=== PATIENT | male | born 1965 | race Caucasian/White ===

== ENCOUNTER → 2019-09-05 | Emergency (ER) | payer MEDICAID, MEDICARE, OTHER ==
[~2019-09-05] VITALS: Ht 167.6 cm; Wt 79.4 kg
[~2019-09-05] MED LIST: IPRIH; MORPHINE SULFATE 4 MG/ML SYR/VIAL IV ONE; ONDANSETRON HCL 4 MG/2 ML VIAL IV ONE; PANTOPRAZOLE 40 MG/10 ML VIAL INJ IV STA; SODIUM CHLORIDE 0.9% 1,000 ML IVB ONE
[2019-09-05 11:06] LABS: Eosinophils # (auto) 0.2 10 ^3/uL (0-0.8); Monocytes # (auto) 0.7 10 ^3/uL (0-1.3)
[2019-09-05 11:07] LABS: Basophils # (auto) 0 10 ^3/uL (0-0.2); Basophils % (auto) 0.2 % (0.0-2.0); Eosinophils % (auto) 2.6 % (0.0-7.0); Hematocrit 28.6 % (41.0-53.0); Hemoglobin 9.3 g/dL (13.5-17.5); Lymphocytes # (auto) 1.5 10 ^3/uL (0.4-5.4); Mean Corpuscular Hemoglobin 28.2 pg (28.0-32.0); Mean Corpuscular Hgb Conc. 32.3 g/dL (32.0-36.0); Mean Corpuscular Volume 87.4 fL (80.0-100.0); Monocytes % (auto) 7.8 % (0.0-12.0); Neutrophils # (auto) 6.9 10 ^3/uL (1.6-8.6); Neutrophils % (auto) 73.4 % (37.0-80.0); Platelet Count (auto) 576 10^3/uL (140-450); Red Blood Cells 3.27 10^6/uL (4.5-5.90); Red Cell Distribution Width 14.7 % (11.8-14.3); White Blood Cell 9.4 10^3/uL (4.4-10.8)
[2019-09-05 11:21] LABS: Albumin 3.6 g/dL (3.4-5.0); Calcium 9.3 mg/dL (8.5-10.1); Potassium 3.3 mmol/L (3.5-5.1)
[2019-09-05 11:24] LABS: Bilirubin, Total 0.2 mg/dL (0.2-1.0); Total Protein 7.5 g/dL (6.4-8.2)
[2019-09-05 13:33] LABS: Urine Amorphous Crystal MANY /hpf (None Seen); Urine Bacteria FEW /hpf (None Seen); Urine Blood Negative /uL (Negative); Urine Specific Gravity 1.008 (1.001-1.035); Urine WBC 2 /hpf (0 - 3)
[2019-09-05 14:44] VITALS: BP 116/73
== END | disposition home or self-care (01) ==
LOC: ER 10:22
DX: N20.0 Calculus of kidney (principal); R42 Dizziness and giddiness; R53.1 Weakness; J45.909 Unspecified asthma, uncomplicated; I10 Essential (primary) hypertension; F17.210 Nicotine dependence, cigarettes, uncomplicated; Z79.899 Other long term (current) drug therapy
CPT/HCPCS: 36415; 74176; 76705; 80053; 81001; 83690; 85025; 96361; 96374; 96375; 99285; C9113; J2270; J2405; J7030

== ENCOUNTER 2020-07-20 14:22 | Inpatient (IN) | payer OTHER ==
[~2020-07-20] VITALS: Ht 167.6 cm; Wt 64.3 kg
[~2020-07-20 14:22] MED LIST changes: -MORPHINE SULFATE 4 MG/ML SYR/VIAL IV ONE; -ONDANSETRON HCL 4 MG/2 ML VIAL IV ONE; -PANTOPRAZOLE 40 MG/10 ML VIAL INJ IV STA; -SODIUM CHLORIDE 0.9% 1,000 ML IVB ONE
[2020-07-20] MEDS ORDERED: SODIUM CHLORIDE 0.9% 1,000 ML IVB ONE (14:45)
[2020-07-20] MEDS ORDERED: KETOROLAC TROMETH 30 MG/ML 1ML VIAL IV ONE (15:30)
[2020-07-20] MEDS ORDERED: ONDANSETRON HCL 4 MG/2 ML VIAL IV ONE (15:30)
[2020-07-20 15:46] LABS: Basophils # (auto) 0.1 10 ^3/uL (0-0.2); Basophils % (auto) 0.7 % (0.0-2.0); Eosinophils # (auto) 0.1 10 ^3/uL (0-0.8); Eosinophils % (auto) 1.5 % (0.0-7.0); Hematocrit 40.2 % (41.0-53.0); Hemoglobin 13.5 g/dL (13.5-17.5); Lymphocytes # (auto) 1.9 10 ^3/uL (0.4-5.4); Mean Corpuscular Hemoglobin 28.7 pg (28.0-32.0); Mean Corpuscular Hgb Conc. 33.5 g/dL (32.0-36.0); Mean Corpuscular Volume 85.5 fL (80.0-100.0); Monocytes # (auto) 0.7 10 ^3/uL (0-1.3); Monocytes % (auto) 7.7 % (0.0-12.0); Neutrophils # (auto) 6.8 10 ^3/uL (1.6-8.6); Neutrophils % (auto) 70.1 % (37.0-80.0); Nucleated Red Blood Cells % 0.1 %; Red Cell Distribution Width 15.3 % (11.8-14.3); White Blood Cell 9.6 10^3/uL (4.4-10.8)
[2020-07-20 16:00] LABS: Albumin 3.9 g/dL (3.4-5.0); Calcium 8.6 mg/dL (8.5-10.1); Potassium 3.6 mmol/L (3.5-5.1)
[2020-07-20 16:03] LABS: BUN/Creatinine Ratio 9.3; Bilirubin, Total 0.5 mg/dL (0.2-1.0); Total Protein 7.2 g/dL (6.4-8.2)
[2020-07-20 16:05] LABS: INR 0.94 (0.9-1.15); Partial Thromboplastin Time 28.4 sec (23.0-31.2)
[2020-07-20 16:30] LABS: Urine Bacteria FEW /hpf (None Seen); Urine Blood Negative /uL (Negative); Urine Specific Gravity 1.005 (1.001-1.035); Urine WBC 1 /hpf (0 - 3)
[2020-07-20] MEDS ORDERED: SODIUM CHLORIDE 0.9% 1,000 ML IV ONE (18:00)
[2020-07-20] MEDS ORDERED: PROMETHAZINE HCL 25 MG/ML 1ML IV ONE (18:00)
[2020-07-20] MEDS ORDERED: MORPHINE SULFATE INJECTION 2 MG/ML SYRG IV ONE (18:00)
[2020-07-20] MEDS ORDERED: ACETAMINOPHEN 500 MG TAB PO PRN (19:15)
[2020-07-20] MEDS ORDERED: IPRATROPIUM BROM 0.5 MG/2.5ML INH SOL NEB PRN (19:15)
[2020-07-20] MEDS ORDERED: ONDANSETRON HCL 4 MG/2 ML VIAL IV PRN ×2 (19:15)
[2020-07-20] MEDS ORDERED: ALBUTEROL SULF 2.5 MG/0.5ML(0.5%) NEB SOLN NEB PRN (19:15)
[2020-07-20 19:43] LABS: Alcohol, Urine < 3.0 mg/dL (0-10); Amphetamine Screen, Urine NEGATIVE (NEGATIVE); Barbiturate Scree,Urine NEGATIVE (NEGATIVE); Benzodiazephine Screen, Urine NEGATIVE (NEGATIVE); Cannabinoid Screen, Urine NEGATIVE (NEGATIVE); Cocaine Screen, Urine NEGATIVE (NEGATIVE); Opiate Scree,Urine NEGATIVE (NEGATIVE); Phencyclidine Screen, Urine NEGATIVE (NEGATIVE)
[2020-07-20 20:34] VITALS: BP 128/89
[2020-07-20] MEDS ORDERED: MORPHINE SULFATE 4 MG/ML SYR/VIAL IV ONE (21:30)
[2020-07-20] MEDS ORDERED: LABETALOL HCL 5 MG/ML 4ML SYRINGE IV ONE (21:30)
[2020-07-20] MEDS: DOCUSATE SOD 100 MG CAP PO SCH (22:00)
[2020-07-21 00:58] VITALS: BP 130/81
[2020-07-21] MEDS: KETOROLAC TROMETH 30 MG/ML 1ML VIAL IV PRN ×3 (04:17→18:55)
[2020-07-21 05:00] VITALS: BP 124/84
[2020-07-21 09:00] VITALS: BP 129/88
[2020-07-21] MEDS: PANTOPRAZOLE 40 MG TAB PO SCH (10:41)
[2020-07-21] MEDS: LACTULOSE 20Gm/30ML SOLN PO SCH (10:41)
[2020-07-21] MEDS: DOCUSATE SOD 100 MG CAP PO SCH ×2 (10:41→21:41)
[2020-07-21 13:00] VITALS: BP 136/81
[2020-07-21 17:19] VITALS: BP 120/79
[2020-07-21 22:00] VITALS: BP 120/89
[2020-07-22 05:00] VITALS: BP 105/65
[2020-07-22 05:40] LABS: Basophils # (auto) 0.3 10 ^3/uL (0-0.2); Basophils % (auto) 3.2 % (0.0-2.0); Eosinophils # (auto) 0.3 10 ^3/uL (0-0.8); Eosinophils % (auto) 3.6 % (0.0-7.0); Hematocrit 38.8 % (41.0-53.0); Hemoglobin 12.8 g/dL (13.5-17.5); Lymphocytes % (auto) 25.5 % (10.0-50.0); Mean Corpuscular Hemoglobin 28.3 pg (28.0-32.0); Mean Corpuscular Hgb Conc. 32.9 g/dL (32.0-36.0); Mean Corpuscular Volume 86.1 fL (80.0-100.0); Monocytes # (auto) 0.6 10 ^3/uL (0-1.3); Monocytes % (auto) 7.1 % (0.0-12.0); Neutrophils # (auto) 4.9 10 ^3/uL (1.6-8.6); Neutrophils % (auto) 60.6 % (37.0-80.0); Nucleated Red Blood Cells % 0.1 %; Red Blood Cells 4.51 10^6/uL (4.5-5.90); Red Cell Distribution Width 15.1 % (11.8-14.3)
[2020-07-22 05:49] LABS: BUN/Creatinine Ratio 9.3; Calcium 8.4 mg/dL (8.5-10.1); Potassium 3.9 mmol/L (3.5-5.1)
[2020-07-22 08:58] VITALS: BP 121/67
[2020-07-22] MEDS: PANTOPRAZOLE 40 MG TAB PO SCH (09:41)
[2020-07-22] MEDS: DOCUSATE SOD 100 MG CAP PO SCH (09:42)
[2020-07-22] MEDS: LACTULOSE 20Gm/30ML SOLN PO SCH (09:42)
[2020-07-22] MEDS ORDERED: CIPROFLOXACIN HYDROCHLORIDE 250 MG TAB PO SCH (10:00)
[2020-07-22 12:54] VITALS: BP 116/78
== END 2020-07-22 15:40 | disposition home or self-care (01) | DRG 690 ==
LOC: EDBD 14:22 → ER 14:22 → OVERFLOW 14:23 → CENTRAL 23:44
PROVIDERS: ADMIT Nurse Practitioner Acute Care; ATTEND Internal Medicine
DX: N10 Acute pyelonephritis (principal); I10 Essential (primary) hypertension; N20.0 Calculus of kidney; J44.9 Chronic obstructive pulmonary disease, unspecified; G89.29 Other chronic pain; K40.90 Unilateral inguinal hernia, without obstruction or gangrene, not specified as recurrent; F17.210 Nicotine dependence, cigarettes, uncomplicated; Z20.822 Contact with and (suspected) exposure to COVID-19; Z80.9 Family history of malignant neoplasm, unspecified; Z87.442 Personal history of urinary calculi; Z76.5 Malingerer [conscious simulation]; Z91.14 Patient's other noncompliance with medication regimen; Z90.49 Acquired absence of other specified parts of digestive tract
CPT/HCPCS: 36415; 71045; 74176; 76705; 76775; 80048; 80053; 80307; 81001; 83690; 83735; 84443; 85025; 85610; 85730; 87426; 93005; 96361; 96374; 96375; G0378; J1885; J2405

== ENCOUNTER 2022-04-27 10:04 | Emergency (ER) | payer OTHER, MEDICAID ==
[~2022-04-27] VITALS: Ht 167.6 cm; Wt 77.2 kg
[2022-04-27] MEDS ORDERED: methylPREDNISolone SOD SUCC 125 MG/2 ML VL IV ONE ×2 (10:07→10:15)
[2022-04-27] MEDS ORDERED: methylPREDNISolone SOD SUCC 125 MG/2 ML VL ONE (10:09)
[2022-04-27] MEDS ORDERED: ALBUTEROL SULF 2.5 MG/0.5ML(0.5%) NEB SOLN ONE (10:12)
[2022-04-27] MEDS ORDERED: MAGNESIUM SULFATE 1GM/100ML 100 ML IV ONE (11:00)
[2022-04-27] MEDS ORDERED: ALBUTEROL SULF 2.5 MG/0.5ML(0.5%) NEB SOLN NEB ONE (11:00)
[2022-04-27 11:42] LABS: Basophils # (auto) 0.1 10 ^3/uL (0-0.2); Basophils % (auto) 0.8 % (0.0-2.0); Eosinophils # (auto) 0.1 10 ^3/uL (0-0.8); Eosinophils % (auto) 1.7 % (0.0-7.0); Hematocrit 45.6 % (41.0-53.0); Hemoglobin 14.5 g/dL (13.5-17.5); Lymphocytes # (auto) 1.8 10 ^3/uL (0.4-5.4); Lymphocytes % (auto) 21.9 % (10.0-50.0); Mean Corpuscular Hgb Conc. 31.7 g/dL (32.0-36.0); Mean Corpuscular Volume 88.6 fL (80.0-100.0); Monocytes # (auto) 0.6 10 ^3/uL (0-1.3); Monocytes % (auto) 6.9 % (0.0-12.0); Neutrophils # (auto) 5.7 10 ^3/uL (1.6-8.6); Neutrophils % (auto) 68.7 % (37.0-80.0); Nucleated Red Blood Cells % 0.1 %; Red Blood Cells 5.15 10^6/uL (4.5-5.90); Red Cell Distribution Width 15.1 % (11.8-14.3); White Blood Cell 8.4 10^3/uL (4.4-10.8)
[2022-04-27 12:25] LABS: Albumin 4.4 g/dL (3.4-5.0); BUN/Creatinine Ratio 14.5; Bilirubin, Total 0.5 mg/dL (0.2-1.0); Calcium 9.2 mg/dL (8.5-10.1); Potassium 4.2 mmol/L (3.5-5.1); Total Protein 7.1 g/dL (6.4-8.2)
[2022-04-27 13:19] VITALS: BP 124/81
[2022-04-27 15:00] VITALS: BP 142/80
== END 2022-04-27 17:51 | disposition left against medical advice (07) ==
LOC: ER 10:04 → EDBD 10:04 → ER 17:51
DX: J44.1 Chronic obstructive pulmonary disease with (acute) exacerbation (principal); R06.03 Acute respiratory distress; F17.210 Nicotine dependence, cigarettes, uncomplicated; I10 Essential (primary) hypertension
CPT/HCPCS: 36415; 36600; 71045; 80053; 82805; 83880; 84484; 85025; 85379; 94640; 94660; 96365; 96372; 99291; J2930; J3475

== ENCOUNTER 2022-12-20 09:44 | Inpatient (IN) | payer OTHER, MEDICAID ==
[~2022-12-20] VITALS: Ht 167.6 cm; Wt 65.6 kg
[2022-12-20] MEDS ORDERED: ALBUTEROL SULF 2.5 MG/0.5ML(0.5%) NEB SOLN ONE (09:51)
[2022-12-20] MEDS ORDERED: ALBUTEROL SULF 2.5 MG/0.5ML(0.5%) NEB SOLN NEB ONE ×2 (10:00→13:30)
[2022-12-20 10:19] VITALS: PULSE 103; RESP 19; O2SAT 99
[2022-12-20 10:43] LABS: Albumin 4.3 g/dL (3.4-5.0); Calcium 8.8 mg/dL (8.5-10.1)
[2022-12-20 10:45] LABS: Basophils # (auto) 0.1 10 ^3/uL (0-0.2); Basophils % (auto) 1.2 % (0.0-2.0); Eosinophils # (auto) 0.2 10 ^3/uL (0-0.8); Hematocrit 43.7 % (41.0-53.0); Hemoglobin 14.4 g/dL (13.5-17.5); Lymphocytes # (auto) 2.9 10 ^3/uL (0.4-5.4); Lymphocytes % (auto) 34.4 % (10.0-50.0); Mean Corpuscular Volume 87.9 fL (80.0-100.0); Monocytes # (auto) 0.8 10 ^3/uL (0-1.3); Neutrophils # (auto) 4.4 10 ^3/uL (1.6-8.6); Neutrophils % (auto) 52.4 % (37.0-80.0); Nucleated Red Blood Cells % 0.1 %; Red Blood Cells 4.98 10^6/uL (4.5-5.90); Red Cell Distribution Width 13.3 % (11.8-14.3); White Blood Cell 8.4 10^3/uL (4.4-10.8)
[2022-12-20 10:47] LABS: BUN/Creatinine Ratio 10.2 (10.0-20.0); Bilirubin, Total 0.4 mg/dL (0.2-1.0)
[2022-12-20 11:08] LABS: INR 0.97 (0.9-1.15); Partial Thromboplastin Time 29.6 SEC (24.5-34.5)
[2022-12-20] MEDS ORDERED: IPRATROPIUM BROM 0.5 MG/2.5ML INH SOL NEB ONE (13:30)
[2022-12-20] MEDS ORDERED: DexAMETHasone SOD PHOS 10MG/1ML VIAL INJ IV ONE (13:30)
[2022-12-20] MEDS ORDERED: ONDANSETRON HCL 4 MG/2 ML VIAL IV PRN (14:45)
[2022-12-20] MEDS ORDERED: ACETAMINOPHEN 325 MG TAB PO PRN (14:45)
[2022-12-20] MEDS ORDERED: DOCUSATE SOD 100 MG CAP PO PRN (14:45)
[2022-12-20] MEDS ORDERED: HYDROmorphone HCL 2 MG/ML VL/or syr IV PRN (14:45)
[2022-12-20] MEDS ORDERED: HYDROcodone-ACET 5/325MG TAB PO PRN (14:45)
[2022-12-20] MEDS: NICOTINE 21MG/24 HR TOPICAL PATCH TD SCH (15:09)
[2022-12-20] MEDS: ALBUTEROL SULF 2.5 MG/0.5ML(0.5%) NEB SOLN NEB SCH ×2 (18:23→22:37)
[2022-12-20] MEDS: IPRATROPIUM BROM 0.5 MG/2.5ML INH SOL NEB SCH ×2 (18:24→22:36)
[2022-12-20 18:26] VITALS: BP 120/79; PULSE 97; O2SAT 91
[2022-12-20 19:30] VITALS: PULSE 98; RESP 20; O2SAT 91
[2022-12-20] MEDS ORDERED: DexAMETHasone 4 MG TAB PO SCH (20:00)
[2022-12-20] MEDS ORDERED: levoFLOXacin 500MG 100 ML IV SCH (20:00)
[2022-12-20] MEDS: ENOXAPARIN SOD 40 MG/0.4 ML SYRINGE SC SCH ×2 (20:37→20:42)
[2022-12-20 20:42] VITALS: BP 118/76; PULSE 112; RESP 18; TEMP 97.6; O2SAT 91
[2022-12-20] MEDS: SODIUM CHLOR 0.9% PF (SALINE LOCK) 10ML VIAL/SYR IV SCH (21:40)
[2022-12-20] MEDS: methylPREDNISolone SOD SUCC 40 MG/ML VL IV SCH (21:42)
[2022-12-20 22:32] VITALS: PULSE 100; RESP 17; O2SAT 94
[2022-12-20 22:40] VITALS: PULSE 102; RESP 20; O2SAT 98
[2022-12-21] VITALS (19 sets, daily range): BP systolic 107–136; BP diastolic 75–81; PULSE 85–114; RESP 15–22; TEMP 97.8–98.6; O2SAT 86–100
[2022-12-21] MEDS: IPRATROPIUM BROM 0.5 MG/2.5ML INH SOL NEB SCH ×8 (02:00→21:58)
[2022-12-21] MEDS: ALBUTEROL SULF 2.5 MG/0.5ML(0.5%) NEB SOLN NEB SCH ×8 (02:00→21:58)
[2022-12-21] MEDS: SODIUM CHLOR 0.9% PF (SALINE LOCK) 10ML VIAL/SYR IV SCH ×3 (05:36→20:59)
[2022-12-21] MEDS: methylPREDNISolone SOD SUCC 40 MG/ML VL IV SCH ×3 (05:56→20:59)
[2022-12-21] MEDS: ENOXAPARIN SOD 40 MG/0.4 ML SYRINGE SC SCH (09:50)
[2022-12-21] MEDS: NICOTINE 21MG/24 HR TOPICAL PATCH TD SCH (09:50)
[2022-12-21] MEDS ORDERED: ENOXAPARIN SOD 40 MG/0.4 ML SYRINGE SC SCH (10:00)
[2022-12-21] MEDS ORDERED: ALBU108A5 INH (11:16)
[2022-12-21] MEDS ORDERED: HYDR12.59 PO (11:16)
[2022-12-21] MEDS ORDERED: BUDE1AER4 INH (11:16)
[2022-12-21] MEDS ORDERED: OXY5T PO (11:16)
[2022-12-21] MEDS ORDERED: ALBU0.084 NEB (11:39)
[2022-12-21] MEDS ORDERED: cefTRIAXone 1GM/50ML D5W 50 ML IV ONE (13:00)
[2022-12-21] MEDS ORDERED: AZITHROMYCIN 500MG/ 250ML 250 ML IV ONE (13:00)
[2022-12-21] MEDS: ACETYLCYSTEINE 20%(200MG/ML) SOL 4ML NEB SCH ×2 (13:45→22:00)
[2022-12-21 21:42] LABS: Urine Bacteria NONE SEEN /hpf (None Seen); Urine Blood Negative /uL (Negative); Urine Hyaline Cast FEW /lpf (0 - 2); Urine Mucus FEW (None Seen); Urine Specific Gravity 1.015 (1.001-1.035); Urine WBC <1 /hpf (0 - 3)
[2022-12-22] VITALS (19 sets, daily range): BP systolic 110–137; BP diastolic 64–85; PULSE 73–109; RESP 16–26; TEMP 97.7–98.2; O2SAT 90–99
[2022-12-22] MEDS: ALBUTEROL SULF 2.5 MG/0.5ML(0.5%) NEB SOLN NEB SCH ×7 (02:00→22:06)
[2022-12-22] MEDS: IPRATROPIUM BROM 0.5 MG/2.5ML INH SOL NEB SCH ×7 (02:00→22:06)
[2022-12-22] MEDS: methylPREDNISolone SOD SUCC 40 MG/ML VL IV SCH (05:11)
[2022-12-22] MEDS: SODIUM CHLOR 0.9% PF (SALINE LOCK) 10ML VIAL/SYR IV SCH ×3 (05:11→21:12)
[2022-12-22] MEDS: LORazepam 0.5 MG TAB PO PRN ×2 (05:17→21:48)
[2022-12-22] MEDS: ACETYLCYSTEINE 20%(200MG/ML) SOL 4ML NEB SCH ×2 (06:00→14:00)
[2022-12-22 06:13] LABS: Potassium 4.4 mmol/L (3.5-5.1)
[2022-12-22 06:22] LABS: Albumin 4.1 g/dL (3.4-5.0); BUN/Creatinine Ratio 22.5 (10.0-20.0); Bilirubin, Total 0.4 mg/dL (0.2-1.0); Calcium 8.9 mg/dL (8.5-10.1); Total Protein 7.4 g/dL (6.4-8.2)
[2022-12-22] MEDS: ENOXAPARIN SOD 40 MG/0.4 ML SYRINGE SC SCH (09:32)
[2022-12-22] MEDS: cefTRIAXone 1GM/50ML D5W 50 ML IV SCH (09:32)
[2022-12-22] MEDS: NICOTINE 21MG/24 HR TOPICAL PATCH TD SCH (09:32)
[2022-12-22] MEDS ORDERED: AZITHROMYCIN 500MG/ 250ML 250 ML IV SCH (10:00)
[2022-12-22] MEDS ORDERED: methylPREDNISolone SOD SUCC 40 MG/ML VL IV SCH (22:00)
[2022-12-23] VITALS (15 sets, daily range): BP systolic 112–133; BP diastolic 81–86; PULSE 62–107; RESP 16–22; TEMP 97.6–98.1; O2SAT 6–99
[2022-12-23] MEDS ORDERED: TEMAZEPAM 15 MG CAP PO ONE (01:00)
[2022-12-23] MEDS: IPRATROPIUM BROM 0.5 MG/2.5ML INH SOL NEB SCH ×5 (01:53→19:43)
[2022-12-23] MEDS: ALBUTEROL SULF 2.5 MG/0.5ML(0.5%) NEB SOLN NEB SCH ×5 (01:53→19:43)
[2022-12-23 05:38] LABS: Basophils # (auto) 0 10 ^3/uL (0-0.2); Basophils % (auto) 0.1 % (0.0-2.0); Eosinophils # (auto) 0 10 ^3/uL (0-0.8); Hematocrit 40.1 % (41.0-53.0); Hemoglobin 13.2 g/dL (13.5-17.5); Lymphocytes # (auto) 0.7 10 ^3/uL (0.4-5.4); Lymphocytes % (auto) 6.8 % (10.0-50.0); Mean Corpuscular Hemoglobin 28.6 pg (28.0-32.0); Mean Corpuscular Volume 86.8 fL (80.0-100.0); Monocytes # (auto) 0.3 10 ^3/uL (0-1.3); Monocytes % (auto) 3.1 % (0.0-12.0); Neutrophils # (auto) 9.4 10 ^3/uL (1.6-8.6); Red Blood Cells 4.62 10^6/uL (4.5-5.90); Red Cell Distribution Width 13.7 % (11.8-14.3); White Blood Cell 10.5 10^3/uL (4.4-10.8)
[2022-12-23 06:12] LABS: BUN/Creatinine Ratio 40.5 (10.0-20.0); Calcium 8.8 mg/dL (8.5-10.1); Potassium 4.2 mmol/L (3.5-5.1)
[2022-12-23] MEDS: predniSONE 20 MG TAB PO SCH (09:40)
[2022-12-23] MEDS: PANTOPRAZOLE 40 MG TAB PO SCH (09:40)
[2022-12-23] MEDS: cefTRIAXone 1GM/50ML D5W 50 ML IV SCH (09:40)
[2022-12-23] MEDS: AZITHROMYCIN 250 MG TAB PO SCH (09:41)
[2022-12-23] MEDS: NICOTINE 21MG/24 HR TOPICAL PATCH TD SCH (10:00)
[2022-12-23] MEDS: SODIUM CHLOR 0.9% PF (SALINE LOCK) 10ML VIAL/SYR IV SCH ×2 (14:00→23:23)
[2022-12-24] VITALS (9 sets, daily range): BP systolic 120–140; BP diastolic 80–95; PULSE 80–94; RESP 16–22; TEMP 97.5–98.3; O2SAT 92–98
[2022-12-24] MEDS: ALBUTEROL SULF 2.5 MG/0.5ML(0.5%) NEB SOLN NEB SCH ×5 (00:12→13:24)
[2022-12-24] MEDS: IPRATROPIUM BROM 0.5 MG/2.5ML INH SOL NEB SCH ×5 (00:12→13:24)
[2022-12-24] MEDS: SODIUM CHLOR 0.9% PF (SALINE LOCK) 10ML VIAL/SYR IV SCH ×2 (05:39→14:00)
[2022-12-24] MEDS: cefTRIAXone 1GM/50ML D5W 50 ML IV SCH (09:00)
[2022-12-24] MEDS: AZITHROMYCIN 250 MG TAB PO SCH (09:50)
[2022-12-24] MEDS: NICOTINE 21MG/24 HR TOPICAL PATCH TD SCH (09:51)
[2022-12-24] MEDS ORDERED: AZIT-43 PO (09:54)
[2022-12-24] MEDS ORDERED: PRED20TA2 PO (09:54)
[2022-12-24] MEDS: PANTOPRAZOLE 40 MG TAB PO SCH (13:44)
[2022-12-24] MEDS: predniSONE 20 MG TAB PO SCH (13:44)
== END 2022-12-24 18:00 | disposition home health service (06) | DRG 189 ==
LOC: ER 09:44 → EDBD 09:44 → TELE 14:37 → TELE-CENTR 12-21 10:51 → CENTRAL 12-22 20:30
PROVIDERS: ADMIT Internal Medicine; ATTEND Student in an Organized Health Care Education/Training Program
PROC: 5A09357 Assistance with Respiratory Ventilation, Less than 24 Consecutive Hours, Continuous Positive Airway Pressure (ICD-10-PCS; principal; 2022-12-20)
DX: J96.00 Acute respiratory failure, unspecified whether with hypoxia or hypercapnia (principal); J18.9 Pneumonia, unspecified organism; J43.9 Emphysema, unspecified; F17.210 Nicotine dependence, cigarettes, uncomplicated; N20.0 Calculus of kidney; I10 Essential (primary) hypertension; E86.0 Dehydration; Z90.49 Acquired absence of other specified parts of digestive tract; Z99.81 Dependence on supplemental oxygen; Z91.148 Patient's other noncompliance with medication regimen for other reason; Z80.9 Family history of malignant neoplasm, unspecified
CPT/HCPCS: 36415; 36600; 71045; 80048; 80053; 81001; 82805; 83880; 84484; 85025; 85379; 85610; 85730; 93306; 94640; 94644; 94660; 96365; 96375; 97110; 97116; 97163; 97530; 99291; G0378; J0696; J1100; J1956

== ENCOUNTER 2023-05-19 23:48 | Inpatient (IN) | payer OTHER, MEDICAID ==
[~2023-05-19] VITALS: Ht 170.2 cm; Wt 69.9 kg
[~2023-05-19 23:48] MED LIST changes: +ALBU0.084 NEB; +ALBU108A5 INH; +AZIT-43 PO; +BUDE1AER4 INH; +HYDR12.59 PO; +OXY5T PO; +PRED20TA2 PO
[2023-05-19 23:50] VITALS: PULSE 94; RESP 28; O2SAT 100
[2023-05-20] VITALS (19 sets, daily range): BP systolic 105–141; BP diastolic 63–88; PULSE 69–116; RESP 15–26; TEMP 96–97.9; O2SAT 91–100
[2023-05-20 00:24] LABS: Base Excess -1.5 mmol/L (-2.0-2.0)
[2023-05-20 01:01] LABS: Basophils # (auto) 0.1 10 ^3/uL (0-0.2); Basophils % (auto) 1.5 % (0.0-2.0); Eosinophils # (auto) 0.4 10 ^3/uL (0-0.8); Eosinophils % (auto) 5.9 % (0.0-7.0); Hematocrit 42.2 % (41.0-53.0); Hemoglobin 13.6 g/dL (13.5-17.5); Lymphocytes # (auto) 2.7 10 ^3/uL (0.4-5.4); Lymphocytes % (auto) 41.6 % (10.0-50.0); Mean Corpuscular Hemoglobin 28.5 pg (28.0-32.0); Mean Corpuscular Hgb Conc. 32.2 g/dL (32.0-36.0); Mean Corpuscular Volume 88.3 fL (80.0-100.0); Monocytes # (auto) 0.7 10 ^3/uL (0-1.3); Monocytes % (auto) 10.6 % (0.0-12.0); Neutrophils # (auto) 2.6 10 ^3/uL (1.6-8.6); Neutrophils % (auto) 40.4 % (37.0-80.0); Red Blood Cells 4.77 10^6/uL (4.5-5.90); White Blood Cell 6.5 10^3/uL (4.4-10.8)
[2023-05-20 01:07] LABS: Alanine Aminotransferase 11 U/L (7-40); Albumin 4.6 g/dL (3.2-4.8); Alkaline Phosphatase 45 U/L (46-116); Anion Gap 5 (5-15); Aspartate Aminotransferase 15 U/L (13-40); BUN/Creatinine Ratio 7.9 (10.0-20.0); Blood Urea Nitrogen 8 mg/dL (9-23); Calcium 8.9 mg/dL (8.7-10.4); Carbon Dioxide 27 mmol/L (20-30); Chloride 113 mmol/L (98-107); Glucose 89 mg/dL (74-106); Magnesium 1.8 mg/dL (1.6-2.6); Potassium 3.8 mmol/L (3.5-5.1); Sodium 145 mmol/L (136-145)
[2023-05-20 01:08] LABS: Bilirubin, Total 0.4 mg/dL (0.2-1.0); Total Protein 6.8 g/dL (5.7-8.2)
[2023-05-20 01:14] LABS: INR 0.96 (0.9-1.15); Prothrombin Time 10.1 sec (9.3-11.8)
[2023-05-20] MEDS ORDERED: AZITHROMYCIN 500MG/ 250ML 250 ML IV ONE (01:15)
[2023-05-20] MEDS ORDERED: cefTRIAXone 1GM/50ML D5W 50 ML IV ONE ×2 (01:15→02:48)
[2023-05-20] MEDS ORDERED: DexAMETHasone SOD PHOS 10MG/1ML VIAL INJ IV ONE (01:15)
[2023-05-20] MEDS ORDERED: ALBUTEROL SULF 2.5 MG/0.5ML(0.5%) NEB SOLN NEB ONE (01:15)
[2023-05-20] MEDS: MAGNESIUM SULFATE 1GM/100ML 100 ML IV SCH ×2 (02:50→05:18)
[2023-05-20 03:46] LABS: COVID19 ANTIGEN SOFIA FIA NEGATIVE (NEGATIVE); Rapid Influenza A Negative (Negative); Rapid Influenza B Negative (Negative)
[2023-05-20] MEDS ORDERED: MAGNESIUM SULFATE 1GM/100ML 100 ML IV ONE (05:16)
[2023-05-20] MEDS ORDERED: MORPHINE SULFATE INJ 2 MG/ml SYRG IV PRN (07:15)
[2023-05-20] MEDS ORDERED: ONDANSETRON HCL 4 MG/2 ML VIAL IV PRN (07:15)
[2023-05-20] MEDS ORDERED: NITROGLYCERIN 0.4 MG SL TAB SL PRN (07:15)
[2023-05-20] MEDS: BUDESONIDE (INHALATION) 0.5 MG/2 ML NEB NEB SCH ×2 (08:33→18:17)
[2023-05-20] MEDS: IPRATROPIUM BROM 0.5 MG/2.5ML INH SOL NEB PRN ×3 (08:33→22:02)
[2023-05-20] MEDS: ALBUTEROL SULF 2.5 MG/0.5ML(0.5%) NEB SOLN NEB PRN ×3 (08:33→22:02)
[2023-05-20] MEDS ORDERED: BUDESONIDE (INHALATION) 0.5 MG/2 ML NEB ONE ×2 (08:54→18:03)
[2023-05-20] MEDS ORDERED: IPRATROPIUM BROM 0.5 MG/2.5ML INH SOL ONE ×3 (08:54→21:40)
[2023-05-20] MEDS ORDERED: methylPREDNISolone SOD SUCC 125 MG/2 ML VL IV SCH (10:00)
[2023-05-20] MEDS ORDERED: methylPREDNISolone SOD SUCC 125 MG/2 ML VL ONE (10:34)
[2023-05-20] MEDS ORDERED: NICOTINE 14 MG/24HR TOPICAL PATCH TD ONE (10:43)
[2023-05-20] MEDS: NICOTINE 14 MG/24HR TOPICAL PATCH TD SCH (10:43)
[2023-05-20] MEDS ORDERED: ACETAMINOPHEN 325 MG TAB PO ONE ×2 (11:14→18:17)
[2023-05-20] MEDS: ACETAMINOPHEN 325 MG TAB PO PRN ×2 (11:17→18:23)
[2023-05-20 11:40] LABS: Urine Bacteria NONE SEEN /hpf (None Seen); Urine Blood Negative /uL (Negative); Urine Clarity Clear (Clear); Urine Color Yellow (Yellow); Urine Mucus FEW (None Seen); Urine Protein, UAD Negative (Negative); Urine Specific Gravity 1.017 (1.001-1.035); Urine Urobilinogen Normal (Negative); Urine WBC <1 /hpf (0 - 3)
[2023-05-20] MEDS ORDERED: IOHEXOL 350 MG/ML 100ML IJ ONE (11:53)
[2023-05-20 14:20] LABS: Hepatitis B Surface Antigen Negative (Negative)
[2023-05-20 14:41] LABS: Hepatitis C Antibody Negative (Negative)
[2023-05-20 15:20] LABS: Base Excess -0.6 mmol/L (-2.0-2.0)
[2023-05-20] MEDS ORDERED: ALBUTEROL SULF 2.5 MG/0.5ML(0.5%) NEB SOLN ONE ×2 (16:34→21:40)
[2023-05-20] MEDS ORDERED: LISINOPRIL 5 MG TAB PO ONE (20:30)
[2023-05-20] MEDS: methylPREDNISolone SOD SUCC 125 MG/2 ML VL IV SCH (22:00)
[2023-05-21] VITALS (19 sets, daily range): BP systolic 110–131; BP diastolic 69–78; PULSE 80–116; RESP 18–20; TEMP 97.5–98.6; O2SAT 92–99
[2023-05-21] MEDS ORDERED: IPRATROPIUM BROM 0.5 MG/2.5ML INH SOL ONE (02:09)
[2023-05-21] MEDS ORDERED: ALBUTEROL SULF 2.5 MG/0.5ML(0.5%) NEB SOLN ONE (02:09)
[2023-05-21] MEDS: IPRATROPIUM BROM 0.5 MG/2.5ML INH SOL NEB PRN ×3 (02:12→09:56)
[2023-05-21] MEDS: ALBUTEROL SULF 2.5 MG/0.5ML(0.5%) NEB SOLN NEB PRN ×3 (02:12→09:56)
[2023-05-21] MEDS: BUDESONIDE (INHALATION) 0.5 MG/2 ML NEB NEB SCH (06:03)
[2023-05-21 06:24] LABS: Basophils # (auto) 0 10 ^3/uL (0-0.2); Basophils % (auto) 0.2 % (0.0-2.0); Eosinophils # (auto) 0 10 ^3/uL (0-0.8); Hematocrit 41.6 % (41.0-53.0); Hemoglobin 13.1 g/dL (13.5-17.5); Lymphocytes # (auto) 0.9 10 ^3/uL (0.4-5.4); Mean Corpuscular Hemoglobin 28.7 pg (28.0-32.0); Mean Corpuscular Hgb Conc. 31.5 g/dL (32.0-36.0); Mean Corpuscular Volume 91.1 fL (80.0-100.0); Monocytes # (auto) 0.5 10 ^3/uL (0-1.3); Neutrophils # (auto) 7.9 10 ^3/uL (1.6-8.6); Neutrophils % (auto) 84.8 % (37.0-80.0); Red Blood Cells 4.56 10^6/uL (4.5-5.90); Red Cell Distribution Width 14.2 % (11.8-14.3); White Blood Cell 9.3 10^3/uL (4.4-10.8)
[2023-05-21 06:29] LABS: Chloride 109 mmol/L (98-107); Potassium 4.5 mmol/L (3.5-5.1); Sodium 137 mmol/L (136-145)
[2023-05-21 06:30] LABS: Anion Gap 7 (5-15); Calcium 8.9 mg/dL (8.7-10.4); Carbon Dioxide 21 mmol/L (20-30)
[2023-05-21 06:35] LABS: BUN/Creatinine Ratio 10.1 (10.0-20.0); Blood Urea Nitrogen 8 mg/dL (9-23); Glucose 132 mg/dL (74-106); Magnesium 2.2 mg/dL (1.6-2.6)
[2023-05-21] MEDS: cefTRIAXone 1GM/50ML D5W 50 ML IV SCH (09:00)
[2023-05-21] MEDS: methylPREDNISolone SOD SUCC 125 MG/2 ML VL IV SCH (09:41)
[2023-05-21] MEDS: AZITHROMYCIN 500MG/ 250ML 250 ML IV SCH (09:41)
[2023-05-21] MEDS: LISINOPRIL 5 MG TAB PO SCH (09:43)
[2023-05-21] MEDS ORDERED: LORazepam 2MG/ML-1ML VIAL IV ONE (10:00)
[2023-05-21] MEDS ORDERED: PANTOPRAZOLE 40 MG TAB PO ONE (11:00)
[2023-05-21] MEDS: NICOTINE 14 MG/24HR TOPICAL PATCH TD SCH (13:42)
[2023-05-21] MEDS: ALBUTEROL SULF 2.5 MG/0.5ML(0.5%) NEB SOLN NEB SCH ×3 (15:25→22:10)
[2023-05-21] MEDS: IPRATROPIUM BROM 0.5 MG/2.5ML INH SOL NEB SCH ×3 (15:25→22:10)
[2023-05-21] MEDS: methylPREDNISolone SOD SUCC 40 MG/ML VL IV SCH ×2 (15:59→21:33)
[2023-05-22] VITALS (22 sets, daily range): BP systolic 113–129; BP diastolic 70–78; PULSE 67–103; RESP 15–20; TEMP 97.7–98.6; O2SAT 95–100
[2023-05-22] MEDS: ALBUTEROL SULF 2.5 MG/0.5ML(0.5%) NEB SOLN NEB SCH ×6 (01:55→22:16)
[2023-05-22] MEDS: IPRATROPIUM BROM 0.5 MG/2.5ML INH SOL NEB SCH ×6 (01:55→22:16)
[2023-05-22] MEDS: methylPREDNISolone SOD SUCC 40 MG/ML VL IV SCH ×3 (05:51→21:52)
[2023-05-22 07:13] LABS: Basophils # (auto) 0 10 ^3/uL (0-0.2); Eosinophils # (auto) 0 10 ^3/uL (0-0.8); Hematocrit 38.1 % (41.0-53.0); Hemoglobin 12.3 g/dL (13.5-17.5); Lymphocytes # (auto) 1.2 10 ^3/uL (0.4-5.4); Lymphocytes % (auto) 10.7 % (10.0-50.0); Mean Corpuscular Hemoglobin 27.9 pg (28.0-32.0); Mean Corpuscular Hgb Conc. 32.3 g/dL (32.0-36.0); Mean Corpuscular Volume 86.4 fL (80.0-100.0); Monocytes # (auto) 0.7 10 ^3/uL (0-1.3); Monocytes % (auto) 6.5 % (0.0-12.0); Neutrophils # (auto) 9.4 10 ^3/uL (1.6-8.6); Neutrophils % (auto) 82.8 % (37.0-80.0); Red Blood Cells 4.41 10^6/uL (4.5-5.90); Red Cell Distribution Width 13.7 % (11.8-14.3); White Blood Cell 11.3 10^3/uL (4.4-10.8)
[2023-05-22 07:55] LABS: Anion Gap 7 (5-15); Blood Urea Nitrogen 15 mg/dL (9-23); Calcium 9.3 mg/dL (8.5-10.1); Carbon Dioxide 26 mmol/L (20-30); Chloride 108 mmol/L (98-107); Glucose 113 mg/dL (74-106); Potassium 4.3 mmol/L (3.5-5.1); Sodium 141 mmol/L (136-145)
[2023-05-22] MEDS: cefTRIAXone 1GM/50ML D5W 50 ML IV SCH (09:13)
[2023-05-22] MEDS: ENOXAPARIN SOD 40 MG/0.4 ML SYRINGE SC SCH (10:21)
[2023-05-22] MEDS: LISINOPRIL 5 MG TAB PO SCH (10:21)
[2023-05-22] MEDS: NICOTINE 14 MG/24HR TOPICAL PATCH TD SCH (10:21)
[2023-05-22] MEDS: PANTOPRAZOLE 40 MG TAB PO SCH (10:21)
[2023-05-22] MEDS: AZITHROMYCIN 500MG/ 250ML 250 ML IV SCH (10:22)
[2023-05-22] MEDS ORDERED: FUROSEMIDE 40 MG/4 ML VIAL IV ONE (12:15)
[2023-05-22 14:23] LABS: Base Excess 2.3 mmol/L (-2.0-2.0)
[2023-05-23] VITALS (21 sets, daily range): BP systolic 103–154; BP diastolic 59–85; PULSE 55–106; RESP 16–22; TEMP 97.8–98.2; O2SAT 91–98
[2023-05-23] MEDS: ALBUTEROL SULF 2.5 MG/0.5ML(0.5%) NEB SOLN NEB SCH ×6 (02:19→22:07)
[2023-05-23] MEDS: IPRATROPIUM BROM 0.5 MG/2.5ML INH SOL NEB SCH ×6 (02:19→22:07)
[2023-05-23] MEDS: methylPREDNISolone SOD SUCC 40 MG/ML VL IV SCH ×2 (05:46→21:26)
[2023-05-23 06:03] LABS: Basophils # (auto) 0 10 ^3/uL (0-0.2); Basophils % (auto) 0.1 % (0.0-2.0); Eosinophils # (auto) 0 10 ^3/uL (0-0.8); Hematocrit 38.7 % (41.0-53.0); Hemoglobin 12.9 g/dL (13.5-17.5); Lymphocytes # (auto) 1.3 10 ^3/uL (0.4-5.4); Lymphocytes % (auto) 12.2 % (10.0-50.0); Mean Corpuscular Hemoglobin 28.2 pg (28.0-32.0); Mean Corpuscular Hgb Conc. 33.2 g/dL (32.0-36.0); Monocytes # (auto) 0.8 10 ^3/uL (0-1.3); Monocytes % (auto) 7.9 % (0.0-12.0); Neutrophils # (auto) 8.5 10 ^3/uL (1.6-8.6); Neutrophils % (auto) 79.8 % (37.0-80.0); Red Blood Cells 4.55 10^6/uL (4.5-5.90); Red Cell Distribution Width 13.8 % (11.8-14.3); White Blood Cell 10.6 10^3/uL (4.4-10.8)
[2023-05-23 06:19] LABS: Anion Gap 7 (5-15); Carbon Dioxide 27 mmol/L (20-30); Chloride 105 mmol/L (98-107); Potassium 3.9 mmol/L (3.5-5.1); Sodium 139 mmol/L (136-145)
[2023-05-23 06:21] LABS: Calcium 9.4 mg/dL (8.7-10.4)
[2023-05-23 06:25] LABS: Glucose 119 mg/dL (74-106)
[2023-05-23 06:26] LABS: BUN/Creatinine Ratio 24.2 (10.0-20.0); Blood Urea Nitrogen 22 mg/dL (9-23)
[2023-05-23] MEDS: FUROSEMIDE 40 MG/4 ML VIAL IV SCH (08:35)
[2023-05-23] MEDS: NICOTINE 14 MG/24HR TOPICAL PATCH TD SCH (08:37)
[2023-05-23] MEDS: PANTOPRAZOLE 40 MG TAB PO SCH (08:37)
[2023-05-23] MEDS: ENOXAPARIN SOD 40 MG/0.4 ML SYRINGE SC SCH (08:37)
[2023-05-23] MEDS: LISINOPRIL 5 MG TAB PO SCH (08:38)
[2023-05-23] MEDS: cefTRIAXone 1GM/50ML D5W 50 ML IV SCH (08:39)
[2023-05-23] MEDS: AZITHROMYCIN 500MG/ 250ML 250 ML IV SCH (09:40)
[2023-05-23] MEDS ORDERED: ACETAMINOPHEN 500 MG TAB PO PRN (12:45)
[2023-05-23] MEDS: MAGNESIUM SULFATE 1GM/100ML 100 ML IV SCH ×2 (14:03→15:16)
[2023-05-23] MEDS: HYDROcodone-ACET 5/325MG TAB PO PRN (22:06)
[2023-05-24] VITALS (15 sets, daily range): BP systolic 116–157; BP diastolic 59–86; PULSE 73–113; RESP 16–22; TEMP 97.7–98.4; O2SAT 84–98
[2023-05-24] MEDS: ALBUTEROL SULF 2.5 MG/0.5ML(0.5%) NEB SOLN NEB SCH ×6 (02:12→22:28)
[2023-05-24] MEDS: IPRATROPIUM BROM 0.5 MG/2.5ML INH SOL NEB SCH ×6 (02:12→22:28)
[2023-05-24] MEDS: HYDROcodone-ACET 5/325MG TAB PO PRN ×4 (04:12→20:18)
[2023-05-24 06:44] LABS: Basophils # (auto) 0 10 ^3/uL (0-0.2); Basophils % (auto) 0.1 % (0.0-2.0); Eosinophils # (auto) 0 10 ^3/uL (0-0.8); Hematocrit 39.2 % (41.0-53.0); Hemoglobin 12.9 g/dL (13.5-17.5); Lymphocytes # (auto) 1.1 10 ^3/uL (0.4-5.4); Lymphocytes % (auto) 10.8 % (10.0-50.0); Mean Corpuscular Hemoglobin 28.3 pg (28.0-32.0); Mean Corpuscular Hgb Conc. 32.9 g/dL (32.0-36.0); Mean Corpuscular Volume 86.1 fL (80.0-100.0); Monocytes # (auto) 0.5 10 ^3/uL (0-1.3); Monocytes % (auto) 4.7 % (0.0-12.0); Neutrophils # (auto) 8.6 10 ^3/uL (1.6-8.6); Neutrophils % (auto) 84.4 % (37.0-80.0); Red Blood Cells 4.55 10^6/uL (4.5-5.90); Red Cell Distribution Width 13.7 % (11.8-14.3); White Blood Cell 10.2 10^3/uL (4.4-10.8)
[2023-05-24 07:06] LABS: Alanine Aminotransferase 12 U/L (7-40); Albumin 4.4 g/dL (3.2-4.8); Alkaline Phosphatase 39 U/L (46-116); Anion Gap 7 (5-15); Aspartate Aminotransferase < 8 U/L (13-40); Bilirubin, Total 0.4 mg/dL (0.2-1.0); Blood Urea Nitrogen 21 mg/dL (9-23); Calcium 9.2 mg/dL (8.7-10.4); Carbon Dioxide 28 mmol/L (20-30); Chloride 103 mmol/L (98-107); Glucose 138 mg/dL (74-106); Magnesium 2.1 mg/dL (1.6-2.6); Sodium 138 mmol/L (136-145); Total Protein 6.5 g/dL (5.7-8.2)
[2023-05-24] MEDS: PANTOPRAZOLE 40 MG TAB PO SCH (09:46)
[2023-05-24] MEDS: LISINOPRIL 5 MG TAB PO SCH (09:46)
[2023-05-24] MEDS: FUROSEMIDE 40 MG/4 ML VIAL IV SCH (09:47)
[2023-05-24] MEDS: cefTRIAXone 1GM/50ML D5W 50 ML IV SCH (09:48)
[2023-05-24] MEDS: ENOXAPARIN SOD 40 MG/0.4 ML SYRINGE SC SCH (09:48)
[2023-05-24] MEDS: NICOTINE 14 MG/24HR TOPICAL PATCH TD SCH (09:48)
[2023-05-24] MEDS: methylPREDNISolone SOD SUCC 40 MG/ML VL IV SCH ×2 (09:48→22:50)
[2023-05-24] MEDS: AZITHROMYCIN 500MG/ 250ML 250 ML IV SCH (12:54)
[2023-05-24] MEDS ORDERED: PRED20TA2 PO (13:58)
[2023-05-24] MEDS ORDERED: MELATONIN 5 MG TAB PO ONE (22:00)
[2023-05-25] VITALS (8 sets, daily range): BP systolic 116; BP diastolic 70–83; PULSE 84–93; RESP 16–20; TEMP 97.6–98; O2SAT 91–99
[2023-05-25] MEDS ORDERED: OXYCODONE W/ ACETAMINOPHEN 5/325MG TABLET PO ONE (01:00)
[2023-05-25] MEDS: ALBUTEROL SULF 2.5 MG/0.5ML(0.5%) NEB SOLN NEB SCH ×3 (02:34→09:43)
[2023-05-25] MEDS: IPRATROPIUM BROM 0.5 MG/2.5ML INH SOL NEB SCH ×3 (02:34→09:43)
[2023-05-25] MEDS: cefTRIAXone 1GM/50ML D5W 50 ML IV SCH (08:49)
[2023-05-25] MEDS: HYDROcodone-ACET 5/325MG TAB PO PRN (08:50)
[2023-05-25] MEDS ORDERED: AZITHROMYCIN 250 MG TAB PO SCH (10:00)
[2023-05-25] MEDS: FUROSEMIDE 40 MG/4 ML VIAL IV SCH (10:10)
[2023-05-25] MEDS: methylPREDNISolone SOD SUCC 40 MG/ML VL IV SCH (10:10)
[2023-05-25] MEDS: ENOXAPARIN SOD 40 MG/0.4 ML SYRINGE SC SCH (10:11)
[2023-05-25] MEDS: NICOTINE 14 MG/24HR TOPICAL PATCH TD SCH (10:11)
[2023-05-25] MEDS: PANTOPRAZOLE 40 MG TAB PO SCH (10:11)
[2023-05-25] MEDS: LISINOPRIL 5 MG TAB PO SCH (10:12)
== END 2023-05-25 13:25 | disposition home or self-care (01) | DRG 177 ==
LOC: EDBD 23:48 → ER 23:48 → TELE 05-20 07:04 → TELE-CENTR 05-20 11:42
PROVIDERS: ADMIT Internal Medicine; ATTEND Internal Medicine
PROC: 5A09357 Assistance with Respiratory Ventilation, Less than 24 Consecutive Hours, Continuous Positive Airway Pressure (ICD-10-PCS; principal; 2023-05-19)
PROC: 5A09357 Assistance with Respiratory Ventilation, Less than 24 Consecutive Hours, Continuous Positive Airway Pressure (ICD-10-PCS; 2023-05-21)
PROC: 5A09357 Assistance with Respiratory Ventilation, Less than 24 Consecutive Hours, Continuous Positive Airway Pressure (ICD-10-PCS; 2023-05-22)
DX: J15.69 Pneumonia due to other Gram-negative bacteria (principal); I50.31 Acute diastolic (congestive) heart failure; J96.21 Acute and chronic respiratory failure with hypoxia; J44.1 Chronic obstructive pulmonary disease with (acute) exacerbation; J45.901 Unspecified asthma with (acute) exacerbation; J44.0 Chronic obstructive pulmonary disease with (acute) lower respiratory infection; F17.210 Nicotine dependence, cigarettes, uncomplicated; I48.91 Unspecified atrial fibrillation; I10 Essential (primary) hypertension; Z20.822 Contact with and (suspected) exposure to COVID-19; Z82.49 Family history of ischemic heart disease and other diseases of the circulatory system; Z80.9 Family history of malignant neoplasm, unspecified; Z79.899 Other long term (current) drug therapy; Z71.6 Tobacco abuse counseling
CPT/HCPCS: 36415; 36600; 71045; 71275; 80048; 80053; 81001; 82805; 83605; 83735; 83880; 84484; 85025; 85379; 85610; 85730; 86803; 87040; 87081; 87340; 87426; 87804; 93005; 94640; 94660; 96365; 96367; 96368; 96375; 99291; G0378; J1100

== ENCOUNTER 2023-06-12 08:31 | Inpatient (IN) | payer OTHER, MEDICAID ==
[~2023-06-12] VITALS: Ht 170.2 cm; Wt 71.8 kg
[2023-06-12] VITALS (8 sets, daily range): BP systolic 101–132; BP diastolic 49–85; PULSE 84–125; RESP 14–27; O2SAT 94–100
[2023-06-12] MEDS ORDERED: ALBUTEROL SULF 2.5 MG/0.5ML(0.5%) NEB SOLN ONE (08:41)
[2023-06-12] MEDS ORDERED: methylPREDNISolone SOD SUCC 125 MG/2 ML VL IV ONE (08:45)
[2023-06-12] MEDS ORDERED: IPRATROPIUM BROM 0.5 MG/2.5ML INH SOL NEB ONE (08:45)
[2023-06-12] MEDS ORDERED: MAGNESIUM SULFATE 1GM/100ML 100 ML IV ONE (08:45)
[2023-06-12] MEDS ORDERED: ALBUTEROL SULF 2.5 MG/0.5ML(0.5%) NEB SOLN NEB ONE (09:00)
[2023-06-12 09:16] LABS: Basophils # (auto) 0 10 ^3/uL (0-0.2); Basophils % (auto) 0.4 % (0.0-2.0); Eosinophils # (auto) 0 10 ^3/uL (0-0.8); Hemoglobin 12.5 g/dL (13.5-17.5); Lymphocytes # (auto) 0.7 10 ^3/uL (0.4-5.4); Lymphocytes % (auto) 8.6 % (10.0-50.0); Mean Corpuscular Hemoglobin 28.1 pg (28.0-32.0); Mean Corpuscular Volume 87.6 fL (80.0-100.0); Monocytes # (auto) 0.6 10 ^3/uL (0-1.3); Neutrophils # (auto) 6.3 10 ^3/uL (1.6-8.6); Nucleated Red Blood Cells % 0.1 %; Red Blood Cells 4.45 10^6/uL (4.5-5.90); Red Cell Distribution Width 14.4 % (11.8-14.3); White Blood Cell 7.6 10^3/uL (4.4-10.8)
[2023-06-12 09:24] LABS: Chloride 114 mmol/L (98-107); Potassium 4.3 mmol/L (3.5-5.1); Sodium 145 mmol/L (136-145)
[2023-06-12 09:25] LABS: Anion Gap 5 (5-15); Carbon Dioxide 26 mmol/L (20-30)
[2023-06-12 09:26] LABS: Calcium 9.7 mg/dL (8.5-10.1)
[2023-06-12 09:29] LABS: Base Excess -3.3 mmol/L (-2.0-2.0)
[2023-06-12 09:30] LABS: Glucose 109 mg/dL (74-106)
[2023-06-12 09:31] LABS: BUN/Creatinine Ratio 16.4 (10.0-20.0); Blood Urea Nitrogen 19 mg/dL (9-23)
[2023-06-12] MEDS: methylPREDNISolone SOD SUCC 40 MG/ML VL IV SCH ×2 (09:59→23:22)
[2023-06-12] MEDS ORDERED: ACETAMINOPHEN 325 MG TAB PO PRN (10:00)
[2023-06-12] MEDS: IPRATROPIUM BROM 0.5 MG/2.5ML INH SOL NEB SCH ×4 (10:00→22:32)
[2023-06-12] MEDS: ALBUTEROL SULF 2.5 MG/0.5ML(0.5%) NEB SOLN NEB SCH ×4 (10:00→22:32)
[2023-06-12] MEDS ORDERED: MORPHINE SULFATE INJ 2 MG/ml SYRG IV PRN (10:00)
[2023-06-12] MEDS ORDERED: NITROGLYCERIN 0.4 MG SL TAB SL PRN (10:00)
[2023-06-12] MEDS: hydroCHLOROthiazide 25 MG TAB PO SCH (10:21)
[2023-06-12] MEDS: SODIUM CHLORIDE 0.9% 1,000 ML IV SCH (10:59)
[2023-06-12] MEDS: ENOXAPARIN SOD 40 MG/0.4 ML SYRINGE SC SCH (11:01)
[2023-06-12 14:15] LABS: Urine Epithelial Cast None Seen /hpf (<5)
[2023-06-12 14:25] LABS: Urine Bacteria NONE SEEN /hpf (None Seen); Urine Blood Negative /uL (Negative); Urine Clarity Clear (Clear); Urine Color Yellow (Yellow); Urine Protein, UAD TRACE (Negative); Urine Specific Gravity 1.025 (1.001-1.035); Urine Urobilinogen Normal (Negative); Urine WBC 1 /hpf (0 - 3)
[2023-06-12 14:44] LABS: Base Excess -1.9 mmol/L (-2.0-2.0)
[2023-06-12] MEDS: oxyCODONE HCL 5MG TAB PO PRN (23:34)
[2023-06-13] VITALS (17 sets, daily range): BP systolic 106–129; BP diastolic 63–99; PULSE 70–102; RESP 19–25; O2SAT 90–100
[2023-06-13] MEDS: ALBUTEROL SULF 2.5 MG/0.5ML(0.5%) NEB SOLN NEB PRN (00:29)
[2023-06-13] MEDS: IPRATROPIUM BROM 0.5 MG/2.5ML INH SOL NEB SCH ×6 (02:22→21:52)
[2023-06-13] MEDS: ALBUTEROL SULF 2.5 MG/0.5ML(0.5%) NEB SOLN NEB SCH ×6 (02:22→21:52)
[2023-06-13] MEDS: SODIUM CHLORIDE 0.9% 1,000 ML IV SCH ×2 (02:40→15:11)
[2023-06-13] MEDS: oxyCODONE HCL 5MG TAB PO PRN (05:47)
[2023-06-13 06:09] LABS: Basophils # (auto) 0 10 ^3/uL (0-0.2); Basophils % (auto) 0.1 % (0.0-2.0); Eosinophils # (auto) 0 10 ^3/uL (0-0.8); Hematocrit 36.8 % (41.0-53.0); Hemoglobin 11.9 g/dL (13.5-17.5); Lymphocytes # (auto) 0.4 10 ^3/uL (0.4-5.4); Lymphocytes % (auto) 4.5 % (10.0-50.0); Mean Corpuscular Hemoglobin 28.1 pg (28.0-32.0); Mean Corpuscular Hgb Conc. 32.3 g/dL (32.0-36.0); Mean Corpuscular Volume 87.1 fL (80.0-100.0); Monocytes # (auto) 0.4 10 ^3/uL (0-1.3); Monocytes % (auto) 4.9 % (0.0-12.0); Neutrophils # (auto) 7.2 10 ^3/uL (1.6-8.6); Neutrophils % (auto) 90.5 % (37.0-80.0); Nucleated Red Blood Cells % 0.1 %; Red Blood Cells 4.23 10^6/uL (4.5-5.90); Red Cell Distribution Width 14.1 % (11.8-14.3); White Blood Cell 7.9 10^3/uL (4.4-10.8)
[2023-06-13] MEDS: LORazepam 2MG/ML-1ML VIAL IV PRN ×2 (06:18→12:36)
[2023-06-13] MEDS ORDERED: LORazepam 2MG/ML-1ML VIAL ONE (06:18)
[2023-06-13 06:19] LABS: Alanine Aminotransferase 11 U/L (7-40); Albumin 4.3 g/dL (3.2-4.8); Alkaline Phosphatase 42 U/L (46-116); Anion Gap 4 (5-15); Aspartate Aminotransferase 11 U/L (13-40); BUN/Creatinine Ratio 18.7 (10.0-20.0); Bilirubin, Total 0.3 mg/dL (0.2-1.0); Blood Urea Nitrogen 14 mg/dL (9-23); Carbon Dioxide 27 mmol/L (20-30); Chloride 109 mmol/L (98-107); Glucose 128 mg/dL (74-106); Potassium 4.2 mmol/L (3.5-5.1); Sodium 140 mmol/L (136-145)
[2023-06-13 06:20] LABS: Total Protein 6.4 g/dL (5.7-8.2)
[2023-06-13 06:39] LABS: Base Excess -0.1 mmol/L (-2.0-2.0)
[2023-06-13] MEDS: methylPREDNISolone SOD SUCC 40 MG/ML VL IV SCH ×2 (10:56→22:10)
[2023-06-13] MEDS: ENOXAPARIN SOD 40 MG/0.4 ML SYRINGE SC SCH (10:56)
[2023-06-13] MEDS: hydroCHLOROthiazide 25 MG TAB PO SCH (10:56)
[2023-06-13] MEDS ORDERED: cefTRIAXone 1GM/50ML D5W 50 ML IV ONE (13:45)
[2023-06-13 15:12] LABS: COVID19 ANTIGEN SOFIA FIA NEGATIVE (NEGATIVE)
[2023-06-13 15:13] LABS: Rapid Influenza B Negative (Negative)
[2023-06-13 15:15] LABS: Rapid Influenza A Positive (Negative)
[2023-06-13] MEDS: OSELTAMIVIR 75 MG CAP PO SCH (22:09)
[2023-06-14] VITALS (12 sets, daily range): BP systolic 97–139; BP diastolic 40–96; PULSE 85–116; RESP 16–26; O2SAT 91–96
[2023-06-14] MEDS: oxyCODONE HCL 5MG TAB PO PRN ×2 (00:21→17:19)
[2023-06-14] MEDS: IPRATROPIUM BROM 0.5 MG/2.5ML INH SOL NEB SCH ×6 (01:56→22:17)
[2023-06-14] MEDS: ALBUTEROL SULF 2.5 MG/0.5ML(0.5%) NEB SOLN NEB SCH ×6 (01:56→22:17)
[2023-06-14] MEDS: LORazepam 2MG/ML-1ML VIAL IV PRN ×2 (02:06→20:39)
[2023-06-14 08:30] LABS: Base Excess 3.8 mmol/L (-2.0-2.0)
[2023-06-14] MEDS: hydroCHLOROthiazide 25 MG TAB PO SCH (09:22)
[2023-06-14] MEDS: OSELTAMIVIR 75 MG CAP PO SCH ×2 (09:22→22:05)
[2023-06-14] MEDS: ENOXAPARIN SOD 40 MG/0.4 ML SYRINGE SC SCH (09:22)
[2023-06-14] MEDS: methylPREDNISolone SOD SUCC 40 MG/ML VL IV SCH ×2 (09:22→22:05)
[2023-06-14] MEDS: cefTRIAXone 1GM/50ML D5W 50 ML IV SCH (09:23)
[2023-06-14] MEDS: SODIUM CHLORIDE 0.9% 1,000 ML IV SCH (10:12)
[2023-06-14] MEDS ORDERED: ALBUTEROL SULF 2.5 MG/0.5ML(0.5%) NEB SOLN NEB ONE (10:15)
[2023-06-14] MEDS ORDERED: HYDROcodone-ACET 5/325MG TAB PO PRN (17:15)
[2023-06-14] MEDS: TEMAZEPAM 15 MG CAP PO PRN (23:24)
[2023-06-14] MEDS ORDERED: NICOTINE 14 MG/24HR TOPICAL PATCH TD ONE (23:30)
[2023-06-15] VITALS (9 sets, daily range): BP systolic 106–142; BP diastolic 64–91; PULSE 84–101; RESP 17–31; O2SAT 90–99
[2023-06-15] MEDS: IPRATROPIUM BROM 0.5 MG/2.5ML INH SOL NEB SCH ×6 (02:31→21:54)
[2023-06-15] MEDS: ALBUTEROL SULF 2.5 MG/0.5ML(0.5%) NEB SOLN NEB SCH ×6 (02:31→21:54)
[2023-06-15] MEDS: SODIUM CHLORIDE 0.9% 1,000 ML IV SCH ×2 (03:53→21:42)
[2023-06-15] MEDS: OSELTAMIVIR 75 MG CAP PO SCH ×2 (09:08→21:40)
[2023-06-15] MEDS: methylPREDNISolone SOD SUCC 40 MG/ML VL IV SCH ×2 (09:08→21:40)
[2023-06-15] MEDS: cefTRIAXone 1GM/50ML D5W 50 ML IV SCH (09:08)
[2023-06-15] MEDS: ENOXAPARIN SOD 40 MG/0.4 ML SYRINGE SC SCH (09:08)
[2023-06-15] MEDS: hydroCHLOROthiazide 25 MG TAB PO SCH (09:09)
[2023-06-15 09:32] LABS: Basophils # (auto) 0 10 ^3/uL (0-0.2); Basophils % (auto) 0.3 % (0.0-2.0); Eosinophils # (auto) 0 10 ^3/uL (0-0.8); Hematocrit 38.8 % (41.0-53.0); Hemoglobin 12.8 g/dL (13.5-17.5); Lymphocytes # (auto) 0.7 10 ^3/uL (0.4-5.4); Lymphocytes % (auto) 13.7 % (10.0-50.0); Mean Corpuscular Hemoglobin 28.7 pg (28.0-32.0); Mean Corpuscular Volume 87.1 fL (80.0-100.0); Monocytes # (auto) 0.2 10 ^3/uL (0-1.3); Monocytes % (auto) 4.8 % (0.0-12.0); Neutrophils % (auto) 81.2 % (37.0-80.0); Nucleated Red Blood Cells % 0.1 %; Red Blood Cells 4.45 10^6/uL (4.5-5.90); Red Cell Distribution Width 13.7 % (11.8-14.3); White Blood Cell 4.9 10^3/uL (4.4-10.8)
[2023-06-15] MEDS: AZITHROMYCIN 500MG/ 250ML 250 ML IV SCH (09:43)
[2023-06-15 09:47] LABS: Alanine Aminotransferase 14 U/L (7-40); Albumin 4.3 g/dL (3.2-4.8); Alkaline Phosphatase 42 U/L (46-116); Anion Gap 4 (5-15); Aspartate Aminotransferase 14 U/L (13-40); BUN/Creatinine Ratio 20.3 (10.0-20.0); Bilirubin, Total 0.4 mg/dL (0.2-1.0); Blood Urea Nitrogen 16 mg/dL (9-23); Calcium 9.1 mg/dL (8.5-10.1); Carbon Dioxide 32 mmol/L (20-30); Chloride 102 mmol/L (98-107); Glucose 200 mg/dL (74-106); Potassium 3.8 mmol/L (3.5-5.1); Sodium 138 mmol/L (136-145); Total Protein 6.3 g/dL (5.7-8.2)
[2023-06-15] MEDS: oxyCODONE HCL 5MG TAB PO PRN (21:04)
[2023-06-15] MEDS: NICOTINE 14 MG/24HR TOPICAL PATCH TD SCH (23:10)
[2023-06-15] MEDS: TEMAZEPAM 15 MG CAP PO PRN (23:10)
[2023-06-16] VITALS (9 sets, daily range): BP systolic 112–126; BP diastolic 63–84; PULSE 70–83; RESP 17–24; O2SAT 92–96
[2023-06-16] MEDS: IPRATROPIUM BROM 0.5 MG/2.5ML INH SOL NEB SCH ×6 (02:03→22:19)
[2023-06-16] MEDS: ALBUTEROL SULF 2.5 MG/0.5ML(0.5%) NEB SOLN NEB SCH ×6 (02:03→22:19)
[2023-06-16] MEDS: cefTRIAXone 1GM/50ML D5W 50 ML IV SCH (09:03)
[2023-06-16] MEDS: hydroCHLOROthiazide 25 MG TAB PO SCH (10:00)
[2023-06-16] MEDS: AZITHROMYCIN 500MG/ 250ML 250 ML IV SCH (10:00)
[2023-06-16] MEDS: methylPREDNISolone SOD SUCC 40 MG/ML VL IV SCH ×2 (10:44→22:16)
[2023-06-16] MEDS: ENOXAPARIN SOD 40 MG/0.4 ML SYRINGE SC SCH (10:44)
[2023-06-16] MEDS: OSELTAMIVIR 75 MG CAP PO SCH ×2 (10:44→22:16)
[2023-06-16] MEDS: NICOTINE 14 MG/24HR TOPICAL PATCH TD SCH (11:03)
[2023-06-16] MEDS: SODIUM CHLORIDE 0.9% 1,000 ML IV SCH (14:00)
[2023-06-16] MEDS: ALBUTEROL SULF 2.5 MG/0.5ML(0.5%) NEB SOLN NEB PRN (15:03)
[2023-06-16] MEDS: LORazepam 2MG/ML-1ML VIAL IV PRN (15:58)
[2023-06-16] MEDS: oxyCODONE HCL 5MG TAB PO PRN (20:37)
[2023-06-16] MEDS: guaiFENesin 200 MG/10 ML UD PO SCH (20:37)
[2023-06-17] VITALS (18 sets, daily range): BP systolic 119–134; BP diastolic 73–83; PULSE 66–103; RESP 17–26; TEMP 97.8; O2SAT 90–99
[2023-06-17] MEDS: ALBUTEROL SULF 2.5 MG/0.5ML(0.5%) NEB SOLN NEB PRN (00:03)
[2023-06-17] MEDS: guaiFENesin 200 MG/10 ML UD PO SCH ×6 (02:11→23:30)
[2023-06-17] MEDS: ALBUTEROL SULF 2.5 MG/0.5ML(0.5%) NEB SOLN NEB SCH ×6 (03:04→22:12)
[2023-06-17] MEDS: IPRATROPIUM BROM 0.5 MG/2.5ML INH SOL NEB SCH ×6 (03:04→22:12)
[2023-06-17] MEDS: SODIUM CHLORIDE 0.9% 1,000 ML IV SCH ×2 (06:40→23:30)
[2023-06-17] MEDS: cefTRIAXone 1GM/50ML D5W 50 ML IV SCH (09:42)
[2023-06-17] MEDS: methylPREDNISolone SOD SUCC 40 MG/ML VL IV SCH ×2 (10:42→22:59)
[2023-06-17] MEDS: OSELTAMIVIR 75 MG CAP PO SCH ×2 (10:43→22:59)
[2023-06-17] MEDS: AZITHROMYCIN 500MG/ 250ML 250 ML IV SCH (10:43)
[2023-06-17] MEDS: hydroCHLOROthiazide 25 MG TAB PO SCH (10:43)
[2023-06-17] MEDS: ENOXAPARIN SOD 40 MG/0.4 ML SYRINGE SC SCH (10:44)
[2023-06-17] MEDS: NICOTINE 14 MG/24HR TOPICAL PATCH TD SCH (10:44)
[2023-06-17] MEDS ORDERED: ALBUTEROL SULF 2.5 MG/0.5ML(0.5%) NEB SOLN ONE (18:10)
[2023-06-17] MEDS ORDERED: IPRATROPIUM BROM 0.5 MG/2.5ML INH SOL ONE (18:10)
[2023-06-17] MEDS ORDERED: PNEUMOCOCCAL VACC POLYS 25 MCG/0.5 ML VIAL IM ONE (18:30)
[2023-06-18] VITALS (16 sets, daily range): BP systolic 108–127; BP diastolic 65–90; PULSE 72–109; RESP 16–24; TEMP 97.4–98.3; O2SAT 92–100
[2023-06-18] MEDS: IPRATROPIUM BROM 0.5 MG/2.5ML INH SOL NEB SCH ×6 (02:14→22:03)
[2023-06-18] MEDS: ALBUTEROL SULF 2.5 MG/0.5ML(0.5%) NEB SOLN NEB SCH ×6 (02:14→22:03)
[2023-06-18] MEDS: guaiFENesin 200 MG/10 ML UD PO SCH ×4 (06:25→18:01)
[2023-06-18] MEDS: cefTRIAXone 1GM/50ML D5W 50 ML IV SCH (08:38)
[2023-06-18] MEDS: ENOXAPARIN SOD 40 MG/0.4 ML SYRINGE SC SCH (09:57)
[2023-06-18] MEDS: AZITHROMYCIN 500MG/ 250ML 250 ML IV SCH (09:57)
[2023-06-18] MEDS: OSELTAMIVIR 75 MG CAP PO SCH (09:58)
[2023-06-18] MEDS: NICOTINE 14 MG/24HR TOPICAL PATCH TD SCH (09:58)
[2023-06-18] MEDS: methylPREDNISolone SOD SUCC 40 MG/ML VL IV SCH ×2 (09:58→22:29)
[2023-06-18] MEDS: hydroCHLOROthiazide 25 MG TAB PO SCH (10:03)
[2023-06-18] MEDS: SODIUM CHLORIDE 0.9% 1,000 ML IV SCH (17:26)
[2023-06-18] MEDS: TEMAZEPAM 15 MG CAP PO PRN (22:30)
[2023-06-19] VITALS (19 sets, daily range): BP systolic 118–138; BP diastolic 77–90; PULSE 78–106; RESP 16–22; TEMP 97.7–98.3; O2SAT 93–99
[2023-06-19] MEDS: IPRATROPIUM BROM 0.5 MG/2.5ML INH SOL NEB SCH ×6 (02:05→22:19)
[2023-06-19] MEDS: ALBUTEROL SULF 2.5 MG/0.5ML(0.5%) NEB SOLN NEB SCH ×6 (02:05→22:19)
[2023-06-19] MEDS: cefTRIAXone 1GM/50ML D5W 50 ML IV SCH (08:50)
[2023-06-19] MEDS: AZITHROMYCIN 500MG/ 250ML 250 ML IV SCH (11:40)
[2023-06-19] MEDS: methylPREDNISolone SOD SUCC 40 MG/ML VL IV SCH ×2 (11:43→23:29)
[2023-06-19] MEDS: hydroCHLOROthiazide 25 MG TAB PO SCH (11:44)
[2023-06-19] MEDS: ENOXAPARIN SOD 40 MG/0.4 ML SYRINGE SC SCH (11:44)
[2023-06-19] MEDS: NICOTINE 14 MG/24HR TOPICAL PATCH TD SCH (11:44)
[2023-06-19] MEDS ORDERED: PNEUMOCOCCAL VACC POLYS 25 MCG/0.5 ML VIAL IM ONE ×2 (18:00)
[2023-06-19] MEDS: SODIUM CHLORIDE 0.9% 1,000 ML IV SCH (18:45)
[2023-06-19] MEDS: TEMAZEPAM 15 MG CAP PO PRN (23:29)
[2023-06-20] VITALS (17 sets, daily range): BP systolic 106–147; BP diastolic 66–90; PULSE 79–104; RESP 18–21; TEMP 97.4–98.2; O2SAT 92–100
[2023-06-20] MEDS: SODIUM CHLORIDE 0.9% 1,000 ML IV SCH ×2 (01:20→17:54)
[2023-06-20] MEDS: ALBUTEROL SULF 2.5 MG/0.5ML(0.5%) NEB SOLN NEB SCH ×7 (02:00→22:17)
[2023-06-20] MEDS: IPRATROPIUM BROM 0.5 MG/2.5ML INH SOL NEB SCH ×7 (02:00→22:17)
[2023-06-20] MEDS: cefTRIAXone 1GM/50ML D5W 50 ML IV SCH (09:19)
[2023-06-20] MEDS: methylPREDNISolone SOD SUCC 40 MG/ML VL IV SCH ×2 (10:11→22:31)
[2023-06-20] MEDS: hydroCHLOROthiazide 25 MG TAB PO SCH (10:11)
[2023-06-20] MEDS: ENOXAPARIN SOD 40 MG/0.4 ML SYRINGE SC SCH (10:11)
[2023-06-20] MEDS: AZITHROMYCIN 500MG/ 250ML 250 ML IV SCH (10:12)
[2023-06-20] MEDS: NICOTINE 14 MG/24HR TOPICAL PATCH TD SCH (10:12)
[2023-06-20] MEDS: TEMAZEPAM 15 MG CAP PO PRN (22:36)
[2023-06-21] VITALS (19 sets, daily range): BP systolic 101–128; BP diastolic 61–94; PULSE 76–102; RESP 15–20; TEMP 97.9–98.3; O2SAT 92–99
[2023-06-21] MEDS: ALBUTEROL SULF 2.5 MG/0.5ML(0.5%) NEB SOLN NEB SCH ×6 (02:05→22:03)
[2023-06-21] MEDS: IPRATROPIUM BROM 0.5 MG/2.5ML INH SOL NEB SCH ×6 (02:05→22:03)
[2023-06-21] MEDS: cefTRIAXone 1GM/50ML D5W 50 ML IV SCH (08:52)
[2023-06-21] MEDS: methylPREDNISolone SOD SUCC 40 MG/ML VL IV SCH ×2 (10:01→23:00)
[2023-06-21] MEDS: ENOXAPARIN SOD 40 MG/0.4 ML SYRINGE SC SCH (10:01)
[2023-06-21] MEDS: AZITHROMYCIN 500MG/ 250ML 250 ML IV SCH (10:01)
[2023-06-21] MEDS: hydroCHLOROthiazide 25 MG TAB PO SCH (10:01)
[2023-06-21] MEDS: NICOTINE 14 MG/24HR TOPICAL PATCH TD SCH (10:02)
[2023-06-21] MEDS: SODIUM CHLORIDE 0.9% 1,000 ML IV SCH (10:14)
[2023-06-21 12:59] LABS: Rapid Influenza A Negative (Negative); Rapid Influenza B Negative (Negative)
[2023-06-21] MEDS: TEMAZEPAM 15 MG CAP PO PRN (23:04)
[2023-06-22] VITALS (17 sets, daily range): BP systolic 101–135; BP diastolic 65–89; PULSE 75–105; RESP 16–20; TEMP 97.6–98; O2SAT 90–98
[2023-06-22] MEDS: ALBUTEROL SULF 2.5 MG/0.5ML(0.5%) NEB SOLN NEB SCH ×6 (01:59→22:45)
[2023-06-22] MEDS: IPRATROPIUM BROM 0.5 MG/2.5ML INH SOL NEB SCH ×6 (02:00→22:45)
[2023-06-22] MEDS: SODIUM CHLORIDE 0.9% 1,000 ML IV SCH ×2 (03:20→20:00)
[2023-06-22] MEDS: cefTRIAXone 1GM/50ML D5W 50 ML IV SCH (08:31)
[2023-06-22] MEDS: methylPREDNISolone SOD SUCC 40 MG/ML VL IV SCH ×2 (10:43→21:34)
[2023-06-22] MEDS: hydroCHLOROthiazide 25 MG TAB PO SCH (10:44)
[2023-06-22] MEDS: AZITHROMYCIN 500MG/ 250ML 250 ML IV SCH (10:44)
[2023-06-22] MEDS: ENOXAPARIN SOD 40 MG/0.4 ML SYRINGE SC SCH (10:45)
[2023-06-22] MEDS: NICOTINE 14 MG/24HR TOPICAL PATCH TD SCH (10:46)
[2023-06-22 16:04] LABS: COVID19 ANTIGEN SOFIA FIA NEGATIVE (NEGATIVE)
[2023-06-22] MEDS: TEMAZEPAM 15 MG CAP PO PRN (21:33)
[2023-06-23 02:15] VITALS: PULSE 85; RESP 18; O2SAT 95
[2023-06-23] MEDS: ALBUTEROL SULF 2.5 MG/0.5ML(0.5%) NEB SOLN NEB SCH ×2 (02:36→06:52)
[2023-06-23] MEDS: IPRATROPIUM BROM 0.5 MG/2.5ML INH SOL NEB SCH ×2 (02:36→06:52)
[2023-06-23 05:00] VITALS: BP 113/59; PULSE 85; RESP 17; TEMP 98.1; O2SAT 97
[2023-06-23 06:52] VITALS: PULSE 82; RESP 18; O2SAT 94
[2023-06-23 06:58] VITALS: PULSE 79; RESP 18; O2SAT 99
[2023-06-23] MEDS: cefTRIAXone 1GM/50ML D5W 50 ML IV SCH (08:45)
[2023-06-23] MEDS: ENOXAPARIN SOD 40 MG/0.4 ML SYRINGE SC SCH (08:46)
[2023-06-23] MEDS: NICOTINE 14 MG/24HR TOPICAL PATCH TD SCH (08:46)
[2023-06-23] MEDS: hydroCHLOROthiazide 25 MG TAB PO SCH (08:48)
[2023-06-23] MEDS: methylPREDNISolone SOD SUCC 40 MG/ML VL IV SCH (08:48)
[2023-06-23 09:59] VITALS: BP 122/88; PULSE 96; RESP 17; TEMP 97.9; O2SAT 93
== END 2023-06-23 09:56 | DRG 177 ==
LOC: EDBD 08:31 → ER 08:31 → TELE 09:59 → CENTRAL 10:11 → TELE-CENTR 06-17 18:08 → CENTRAL 06-17 23:11
PROVIDERS: ADMIT Nurse Practitioner Family; ATTEND Family Medicine
PROC: 5A09457 Assistance with Respiratory Ventilation, 24-96 Consecutive Hours, Continuous Positive Airway Pressure (ICD-10-PCS; principal; 2023-06-12)
PROC: 5A0945A Assistance with Respiratory Ventilation, 24-96 Consecutive Hours, High Flow/Velocity Cannula (ICD-10-PCS; 2023-06-14)
PROC: 5A09357 Assistance with Respiratory Ventilation, Less than 24 Consecutive Hours, Continuous Positive Airway Pressure (ICD-10-PCS; 2023-06-17)
PROC: 05HC33Z Insertion of Infusion Device into Left Basilic Vein, Percutaneous Approach (ICD-10-PCS; 2023-06-20)
DX: J15.69 Pneumonia due to other Gram-negative bacteria (principal); J96.01 Acute respiratory failure with hypoxia; N17.0 Acute kidney failure with tubular necrosis; J96.02 Acute respiratory failure with hypercapnia; J98.11 Atelectasis; J44.0 Chronic obstructive pulmonary disease with (acute) lower respiratory infection; J44.1 Chronic obstructive pulmonary disease with (acute) exacerbation; J45.901 Unspecified asthma with (acute) exacerbation; J10.08 Influenza due to other identified influenza virus with other specified pneumonia; J15.9 Unspecified bacterial pneumonia; J10.1 Influenza due to other identified influenza virus with other respiratory manifestations; I48.91 Unspecified atrial fibrillation; I10 Essential (primary) hypertension; R41.82 Altered mental status, unspecified; Z20.822 Contact with and (suspected) exposure to COVID-19; F17.210 Nicotine dependence, cigarettes, uncomplicated; Z80.9 Family history of malignant neoplasm, unspecified; Z82.49 Family history of ischemic heart disease and other diseases of the circulatory system
CPT/HCPCS: 36415; 36600; 71045; 71250; 80048; 80053; 81001; 82565; 82805; 83880; 84443; 84484; 85025; 85049; 85379; 87081; 87426; 87804; 93005; 93306; 94640; 94644; 94660; 96365; 96375; 97163; 99291; G0378

== ENCOUNTER 2023-07-04 01:17 | Inpatient (IN) | payer OTHER, MEDICAID ==
[2023-07-04] VITALS (60 sets, daily range): BP systolic 80–170; BP diastolic 31–112; PULSE 81–129; RESP 16–34; TEMP 97.2–98.6; O2SAT 89–100
[~2023-07-04] VITALS: Ht 172.7 cm; Wt 60.0 kg
[2023-07-04] MEDS: IPRATROPIUM BROM 0.5 MG/2.5ML INH SOL ONE (01:31)
[2023-07-04] MEDS: LEVALBUTEROL HCL 1.25 MG/3 ML NEB ONE (01:31)
[2023-07-04] MEDS: LORazepam 2MG/ML-1ML VIAL IV ONE (01:40)
[2023-07-04] MEDS: methylPREDNISolone SOD SUCC 125 MG/2 ML VL IV ONE (01:53)
[2023-07-04] MEDS: methylPREDNISolone SOD SUCC 125 MG/2 ML VL ONE (01:54)
[2023-07-04 02:02] LABS: Hematocrit 42.2 % (41.0-53.0); Hemoglobin 13.7 g/dL (13.5-17.5); Mean Corpuscular Hemoglobin 28.4 pg (28.0-32.0); Mean Corpuscular Hgb Conc. 32.4 g/dL (32.0-36.0); Mean Corpuscular Volume 87.7 fL (80.0-100.0); Red Blood Cells 4.82 10^6/uL (4.5-5.90); White Blood Cell 6.9 10^3/uL (4.4-10.8)
[2023-07-04 02:03] LABS: Base Excess -1.6 mmol/L (-2.0-2.0)
[2023-07-04 02:09] LABS: Band Neutrophils % (manual) 0; Basophils % (manual) 0 (0.0-2.0); Blast Cells 0; Metamyelocytes % 0; Myelocytes % 0; Promyelocytes % 0; Reactive Lymphocytes 0
[2023-07-04 02:17] LABS: Alanine Aminotransferase 18 U/L (7-40); Alkaline Phosphatase 56 U/L (46-116); Anion Gap 4 (5-15); Aspartate Aminotransferase 15 U/L (13-40); BUN/Creatinine Ratio 13.3 (10.0-20.0); Blood Urea Nitrogen 11 mg/dL (9-23); Calcium 9.8 mg/dL (8.7-10.4); Carbon Dioxide 29 mmol/L (20-30); Chloride 109 mmol/L (98-107); Glucose 104 mg/dL (74-106); Potassium 4.2 mmol/L (3.5-5.1); Sodium 142 mmol/L (136-145)
[2023-07-04 02:18] LABS: Albumin 4.7 g/dL (3.2-4.8); Bilirubin, Total 0.5 mg/dL (0.2-1.0); Total Protein 7.6 g/dL (5.7-8.2)
[2023-07-04] MEDS: methylPREDNISolone SOD SUCC 250 MG in SODIUM CHL 0.9% 100 ML IV ONE (02:28)
[2023-07-04] MEDS: MAGNESIUM SULFATE 1GM/100ML 100 ML IV SCH (02:30)
[2023-07-04 02:52] LABS: Eosinophils % (manual) 4 (0-7); Lymphocytes % (manual) 17 (10.0-50.0); Monocytes % (manual) 14 (0-12); Platelet Estimate Adequate; RBC Morphology Normal
[2023-07-04 03:45] LABS: Base Excess -0.8 mmol/L (-2.0-2.0)
[2023-07-04] MEDS: AZITHROMYCIN 500MG/ 250ML 250 ML IV ONE ×2 (04:02→15:30)
[2023-07-04] MEDS ORDERED: ONDANSETRON HCL 4 MG/2 ML VIAL IV PRN (06:00)
[2023-07-04] MEDS ORDERED: DOCUSATE SOD 100 MG CAP PO PRN (06:00)
[2023-07-04] MEDS ORDERED: NITROGLYCERIN 0.4 MG SL TAB SL PRN (06:00)
[2023-07-04] MEDS ORDERED: ACETAMINOPHEN 325 MG TAB PO PRN (06:00)
[2023-07-04] MEDS ORDERED: MORPHINE SULFATE INJ 2 MG/ml SYRG IV PRN (06:00)
[2023-07-04] MEDS ORDERED: HYDROcodone-ACET 5/325MG TAB PO PRN (06:00)
[2023-07-04] MEDS: IOHEXOL 350 MG/ML 100ML IJ ONE (07:09)
[2023-07-04] MEDS: LEVALBUTEROL HCL 1.25 MG/3 ML NEB NEB SCH (08:00)
[2023-07-04] MEDS: FAMOTIDINE (10MG/ML) 2ML VL IV SCH (08:54)
[2023-07-04] MEDS: ASPirin 81 mg TAB PO SCH (08:54)
[2023-07-04] MEDS ORDERED: SUCCINYLCHOLINE CHLORIDE 20 MG/ML 10ML VIAL IV ONE (09:30)
[2023-07-04] MEDS: IPRATROPIUM BROM 0.5 MG/2.5ML INH SOL NEB PRN (09:39)
[2023-07-04] MEDS: ETOMIDATE (2MG/ML) 20ML VIAL IV ONE ×2 (09:39→09:50)
[2023-07-04] MEDS: PROPOFOL 100 ML IV ONE (09:39)
[2023-07-04] MEDS: ROCURONIUM 10MG/ML 10ML VIAL IV ONE ×2 (09:39→09:49)
[2023-07-04] MEDS: PROPOFOL 100 ML IV SCH (09:40)
[2023-07-04] MEDS: SUCCINYLCHOLINE CHLORIDE 20 MG/ML 10ML VIAL IV ONE (09:42)
[2023-07-04] MEDS: levoFLOXacin 500MG 100 ML IV SCH (10:17)
[2023-07-04] MEDS: ENOXAPARIN SOD 40 MG/0.4 ML SYRINGE SC SCH (10:17)
[2023-07-04] MEDS: MIDAZOLAM DRIP 50 mg/50mL 50 ML IV SCH (11:00)
[2023-07-04] MEDS: MIDAZOLAM DRIP 50 mg/50mL 50 ML IV ONE (11:00)
[2023-07-04] MEDS: fentaNYL Drip 2500mCg/250mlNS 250 ML IV SCH (12:45)
[2023-07-04] MEDS: NOREPINEPHRINE 8 MG/250ML KIT 250 ML IV SCH (13:01)
[2023-07-04] MEDS: NOREPINEPHRINE 8 MG/250ML KIT 250 ML IV ONE (13:01)
[2023-07-04] MEDS ORDERED: methylPREDNISolone SOD SUCC 40 MG/ML VL IV SCH (14:00)
[2023-07-04 14:13] LABS: INR 0.96 (0.9-1.15); Partial Thromboplastin Time 34.3 SEC (24.5-34.5); Prothrombin Time 10.1 sec (9.3-11.8)
[2023-07-04 14:13] LABS: Urine Bacteria NONE SEEN /hpf (None Seen); Urine Blood TRACE /uL (Negative); Urine Clarity Clear (Clear); Urine Color Yellow (Yellow); Urine Hyaline Cast FEW /lpf (0 - 2); Urine Mucus FEW (None Seen); Urine Protein, UAD 1+ (Negative); Urine Urobilinogen Normal (Negative); Urine WBC 4 /hpf (0 - 3)
[2023-07-04 14:22] LABS: Base Excess -3.5 mmol/L (-2.0-2.0)
[2023-07-04 14:33] LABS: Urine Specific Gravity > 1.050 (1.001-1.035)
[2023-07-04 14:36] LABS: COVID19 ANTIGEN SOFIA FIA NEGATIVE (NEGATIVE); Rapid Influenza A Negative (Negative); Rapid Influenza B Negative (Negative)
[2023-07-04] MEDS: LIDOCAINE 1% (LOCAL ANESTH.) PF 5ml SDV ID ONE (14:48)
[2023-07-04] MEDS: methylPREDNISolone SOD SUCC 40 MG/ML VL IV SCH (15:22)
[2023-07-04] MEDS: PANTOPRAZOLE 40 MG/10 ML VIAL INJ IV ONE (15:22)
[2023-07-04] MEDS: cefTRIAXone 1GM/50ML D5W 50 ML IV ONE (15:23)
[2023-07-04 16:06] LABS: Hemoglobin 11.7 g/dL (13.5-17.5); Mean Corpuscular Volume 87.6 fL (80.0-100.0); White Blood Cell 4.4 10^3/uL (4.4-10.8)
[2023-07-04 16:10] LABS: Hematocrit 36.1 % (41.0-53.0); Mean Corpuscular Hemoglobin 28.4 pg (28.0-32.0); Mean Corpuscular Hgb Conc. 32.5 g/dL (32.0-36.0); Red Blood Cells 4.12 10^6/uL (4.5-5.90); Red Cell Distribution Width 14.8 % (11.8-14.3)
[2023-07-04 16:16] LABS: Band Neutrophils % (manual) 0; Basophils % (manual) 0 (0.0-2.0); Blast Cells 0; Eosinophils % (manual) 0 (0-7); Metamyelocytes % 0; Myelocytes % 0; Promyelocytes % 0; Reactive Lymphocytes 0
[2023-07-04 16:21] LABS: Alanine Aminotransferase 15 U/L (7-40); Albumin 4.2 g/dL (3.2-4.8); Alkaline Phosphatase 53 U/L (46-116); Anion Gap 7 (5-15); Aspartate Aminotransferase 18 U/L (13-40); BUN/Creatinine Ratio 13.7 (10.0-20.0); Blood Urea Nitrogen 16 mg/dL (9-23); CRP High Sensitivity 0.41 mg/dL (<1.0); Calcium 8.9 mg/dL (8.5-10.1); Carbon Dioxide 25 mmol/L (20-30); Chloride 106 mmol/L (98-107); Glucose 157 mg/dL (74-106); Sodium 138 mmol/L (136-145)
[2023-07-04 16:22] LABS: Bilirubin, Total 0.4 mg/dL (0.2-1.0); Total Protein 6.7 g/dL (5.7-8.2)
[2023-07-04 16:28] LABS: Potassium 5.6 mmol/L (3.5-5.1)
[2023-07-04 16:39] LABS: Erythrocyte Sedimentation Rate 33 mm/hr (0-20)
[2023-07-04] MEDS: CALCIUM GLUC 1,000mg/50ml-NS 50 ML IV ONE (17:04)
[2023-07-04] MEDS: FUROSEMIDE 20 MG/2 ML VIAL IV ONE (17:05)
[2023-07-04 17:17] LABS: Lymphocytes % (manual) 11 (10.0-50.0); Monocytes % (manual) 2 (0-12); Platelet Estimate Adequate
[2023-07-04 20:14] LABS: Chloride 105 mmol/L (98-107); Potassium 5.1 mmol/L (3.5-5.1)
[2023-07-04 20:18] LABS: Calcium 8.7 mg/dL (8.7-10.4); Carbon Dioxide 25 mmol/L (20-30)
[2023-07-04 20:23] LABS: BUN/Creatinine Ratio 11.3 (10.0-20.0); Blood Urea Nitrogen 18 mg/dL (9-23); Glucose 201 mg/dL (74-106)
[2023-07-04 20:40] LABS: Anion Gap 6 (5-15); Sodium 136 mmol/L (136-145)
[2023-07-04] MEDS: SODIUM CHLOR 0.9% PF (SALINE LOCK) 10ML VIAL/SYR IV SCH (21:38)
[2023-07-05] VITALS (110 sets, daily range): BP systolic 90–128; BP diastolic 42–75; PULSE 89–107; RESP 7–31; TEMP 96.4–99.9; O2SAT 93–100
[2023-07-05 04:26] LABS: Basophils # (auto) 0 10 ^3/uL (0-0.2); Basophils % (auto) 0.1 % (0.0-2.0); Eosinophils # (auto) 0 10 ^3/uL (0-0.8); Hematocrit 37.3 % (41.0-53.0); Lymphocytes # (auto) 0.4 10 ^3/uL (0.4-5.4); Lymphocytes % (auto) 6.8 % (10.0-50.0); Mean Corpuscular Hemoglobin 28.2 pg (28.0-32.0); Mean Corpuscular Hgb Conc. 32.1 g/dL (32.0-36.0); Mean Corpuscular Volume 87.8 fL (80.0-100.0); Monocytes # (auto) 0.6 10 ^3/uL (0-1.3); Monocytes % (auto) 9.2 % (0.0-12.0); Neutrophils # (auto) 5.5 10 ^3/uL (1.6-8.6); Neutrophils % (auto) 83.9 % (37.0-80.0); Nucleated Red Blood Cells % 0.1 %; Red Blood Cells 4.25 10^6/uL (4.5-5.90); Red Cell Distribution Width 14.7 % (11.8-14.3); White Blood Cell 6.5 10^3/uL (4.4-10.8)
[2023-07-05 04:44] LABS: Alanine Aminotransferase 15 U/L (7-40); Albumin 4.3 g/dL (3.2-4.8); Alkaline Phosphatase 51 U/L (46-116); Anion Gap 9 (5-15); Aspartate Aminotransferase 10 U/L (13-40); BUN/Creatinine Ratio 11.4 (10.0-20.0); Bilirubin, Total 0.2 mg/dL (0.2-1.0); Blood Urea Nitrogen 25 mg/dL (9-23); Calcium 8.8 mg/dL (8.7-10.4); Carbon Dioxide 24 mmol/L (20-30); Chloride 103 mmol/L (98-107); Glucose 188 mg/dL (74-106); Magnesium 2.1 mg/dL (1.6-2.6); Potassium 5.3 mmol/L (3.5-5.1); Sodium 136 mmol/L (136-145); Total Protein 6.9 g/dL (5.7-8.2)
[2023-07-05 05:01] LABS: Lactic Acid w/Reflex 2.3 mmol/L (0.4-2.0)
[2023-07-05] MEDS: SODIUM ZIRCONIUM CYCL 10 GM PAK GT ONE (06:02)
[2023-07-05] MEDS: cefTRIAXone 1GM/50ML D5W 50 ML IV SCH (10:15)
[2023-07-05] MEDS: PANTOPRAZOLE 40 MG/10 ML VIAL INJ IV SCH (10:18)
[2023-07-05] MEDS: AZITHROMYCIN 500MG/ 250ML 250 ML IV SCH (10:19)
[2023-07-06] VITALS (117 sets, daily range): BP systolic 85–138; BP diastolic 17–91; PULSE 80–97; RESP 29–31; TEMP 96.4–99; O2SAT 90–99
[2023-07-06 04:22] LABS: Basophils # (auto) 0 10 ^3/uL (0-0.2); Basophils % (auto) 0.1 % (0.0-2.0); Eosinophils # (auto) 0 10 ^3/uL (0-0.8); Hematocrit 33.6 % (41.0-53.0); Hemoglobin 10.9 g/dL (13.5-17.5); Lymphocytes # (auto) 0.6 10 ^3/uL (0.4-5.4); Lymphocytes % (auto) 8.9 % (10.0-50.0); Mean Corpuscular Hgb Conc. 32.3 g/dL (32.0-36.0); Mean Corpuscular Volume 86.7 fL (80.0-100.0); Monocytes # (auto) 0.8 10 ^3/uL (0-1.3); Monocytes % (auto) 11.6 % (0.0-12.0); Neutrophils # (auto) 5.6 10 ^3/uL (1.6-8.6); Neutrophils % (auto) 79.4 % (37.0-80.0); Nucleated Red Blood Cells % 0.1 %; Red Blood Cells 3.88 10^6/uL (4.5-5.90); Red Cell Distribution Width 14.9 % (11.8-14.3)
[2023-07-06] MEDS: Jevity 1.2 Cal/Fiber 1 Liter GT SCH (04:29)
[2023-07-06 04:41] LABS: Alanine Aminotransferase 12 U/L (7-40); Albumin 3.9 g/dL (3.2-4.8); Alkaline Phosphatase 44 U/L (46-116); Anion Gap 10 (5-15); Aspartate Aminotransferase 17 U/L (13-40); Bilirubin, Total 0.2 mg/dL (0.2-1.0); Calcium 8.3 mg/dL (8.7-10.4); Carbon Dioxide 23 mmol/L (20-30); Chloride 101 mmol/L (98-107); Glucose 154 mg/dL (74-106); Potassium 4.5 mmol/L (3.5-5.1); Sodium 134 mmol/L (136-145); Total Protein 6.2 g/dL (5.7-8.2)
[2023-07-06 04:42] LABS: Blood Urea Nitrogen 37 mg/dL (9-23)
[2023-07-06 07:41] LABS: Base Excess -4.2 mmol/L (-2.0-2.0)
[2023-07-06 08:09] LABS: Base Excess -7.8 mmol/L (-2.0-2.0)
[2023-07-06] MEDS ORDERED: IPRA0.00 NEB (08:37)
[2023-07-06] MEDS ORDERED: TEMA15CA2 PO (08:37)
[2023-07-06] MEDS ORDERED: PRED10TA PO (08:37)
[2023-07-06] MEDS: methylPREDNISolone SOD SUCC 40 MG/ML VL IV SCH ×2 (10:00→10:45)
[2023-07-06 13:09] LABS: Base Excess -3.6 mmol/L (-2.0-2.0)
[2023-07-06] MEDS: DOPamine 1600MCG/ML D5W 250 ML IV SCH (14:01)
[2023-07-06] MEDS: SODIUM CHLORIDE 0.9% 1,000 ML IV SCH (14:02)
[2023-07-06 15:41] LABS: Sodium Urine < 10 mmol/L (40-220)
[2023-07-06 15:45] LABS: Protein, Urine 70.4 mg/dL (0.0-11.9)
[2023-07-06 15:48] LABS: Creatinine, Urine 116.37 mg/dL (30.0-125.0)
[2023-07-07] VITALS (120 sets, daily range): BP systolic 92–132; BP diastolic 61–90; PULSE 62–98; RESP 7–40; TEMP 97–98.8; O2SAT 92–99
[2023-07-07 04:31] LABS: Basophils # (auto) 0 10 ^3/uL (0-0.2); Basophils % (auto) 0.1 % (0.0-2.0); Eosinophils # (auto) 0 10 ^3/uL (0-0.8); Hematocrit 32.3 % (41.0-53.0); Hemoglobin 10.6 g/dL (13.5-17.5); Lymphocytes % (auto) 12.1 % (10.0-50.0); Mean Corpuscular Hemoglobin 28.2 pg (28.0-32.0); Mean Corpuscular Hgb Conc. 32.8 g/dL (32.0-36.0); Mean Corpuscular Volume 85.9 fL (80.0-100.0); Monocytes # (auto) 1.1 10 ^3/uL (0-1.3); Monocytes % (auto) 12.9 % (0.0-12.0); Neutrophils # (auto) 6.5 10 ^3/uL (1.6-8.6); Neutrophils % (auto) 74.9 % (37.0-80.0); Nucleated Red Blood Cells % 0.4 %; Red Blood Cells 3.77 10^6/uL (4.5-5.90); Red Cell Distribution Width 14.5 % (11.8-14.3); White Blood Cell 8.6 10^3/uL (4.4-10.8)
[2023-07-07 05:12] LABS: Albumin 3.8 g/dL (3.2-4.8); Alkaline Phosphatase 45 U/L (46-116); Anion Gap 6 (5-15); Aspartate Aminotransferase 28 U/L (13-40); BUN/Creatinine Ratio 25.1 (10.0-20.0); Blood Urea Nitrogen 44 mg/dL (9-23); Calcium 8.2 mg/dL (8.7-10.4); Carbon Dioxide 25 mmol/L (20-30); Chloride 105 mmol/L (98-107); Glucose 156 mg/dL (74-106); Potassium 4.7 mmol/L (3.5-5.1); Sodium 136 mmol/L (136-145)
[2023-07-07 05:13] LABS: Bilirubin, Total 0.2 mg/dL (0.2-1.0); Total Protein 6.1 g/dL (5.7-8.2)
[2023-07-07 05:30] LABS: Alanine Aminotransferase 10 U/L (7-40)
[2023-07-07 07:25] LABS: Base Excess -0.1 mmol/L (-2.0-2.0)
[2023-07-07] MEDS: ENOXAPARIN SOD 30 MG/0.3 ML SYRINGE SC SCH (09:30)
[2023-07-07] MEDS: LACTULOSE 20Gm/30ML SOLN PO PRN (15:03)
[2023-07-08] VITALS (117 sets, daily range): BP systolic 82–153; BP diastolic 53–90; PULSE 61–109; RESP 15–39; TEMP 96.8–98.8; O2SAT 91–99
[2023-07-08 04:08] LABS: Basophils # (auto) 0 10 ^3/uL (0-0.2); Basophils % (auto) 0.3 % (0.0-2.0); Eosinophils # (auto) 0 10 ^3/uL (0-0.8); Eosinophils % (auto) 0.1 % (0.0-7.0); Hematocrit 32.2 % (41.0-53.0); Hemoglobin 10.6 g/dL (13.5-17.5); Lymphocytes # (auto) 1.6 10 ^3/uL (0.4-5.4); Lymphocytes % (auto) 18.7 % (10.0-50.0); Mean Corpuscular Hemoglobin 28.2 pg (28.0-32.0); Mean Corpuscular Hgb Conc. 32.8 g/dL (32.0-36.0); Mean Corpuscular Volume 85.8 fL (80.0-100.0); Monocytes # (auto) 1.1 10 ^3/uL (0-1.3); Monocytes % (auto) 12.1 % (0.0-12.0); Neutrophils % (auto) 68.8 % (37.0-80.0); Nucleated Red Blood Cells % 0.4 %; Red Blood Cells 3.75 10^6/uL (4.5-5.90); Red Cell Distribution Width 14.9 % (11.8-14.3); White Blood Cell 8.8 10^3/uL (4.4-10.8)
[2023-07-08 04:25] LABS: Alanine Aminotransferase 12 U/L (7-40); Albumin 3.9 g/dL (3.2-4.8); Alkaline Phosphatase 45 U/L (46-116); Anion Gap 4 (5-15); Aspartate Aminotransferase 25 U/L (13-40); BUN/Creatinine Ratio 37.9 (10.0-20.0); Blood Urea Nitrogen 44 mg/dL (9-23); Calcium 8.7 mg/dL (8.7-10.4); Carbon Dioxide 27 mmol/L (20-30); Chloride 107 mmol/L (98-107); Glucose 118 mg/dL (74-106); Potassium 5.4 mmol/L (3.5-5.1); Sodium 138 mmol/L (136-145)
[2023-07-08 04:26] LABS: Bilirubin, Total 0.2 mg/dL (0.2-1.0); Total Protein 6.3 g/dL (5.7-8.2)
[2023-07-08 04:30] LABS: INR 0.88 (0.9-1.15); Partial Thromboplastin Time 26.5 SEC (24.5-34.5); Prothrombin Time 9.3 sec (9.3-11.8)
[2023-07-08 07:15] LABS: Base Excess 0.5 mmol/L (-2.0-2.0)
[2023-07-08] MEDS: FUROSEMIDE 20 MG/2 ML VIAL IV ONE (07:58)
[2023-07-08] MEDS: SODIUM ZIRCONIUM CYCL 10 GM PAK PO ONE (07:58)
[2023-07-08] MEDS: DEXTROSE (50%) 50ML SYRG IV ONE (08:15)
[2023-07-08] MEDS ORDERED: BENZOCAINE (DENTAL) 20 % SPRAY 60ML MT ONE (08:24)
[2023-07-08] MEDS ORDERED: LIDOCAINE 2% JELLY 11ml (GLYDO) ONE (08:24)
[2023-07-08] MEDS ORDERED: LIDOCAINE 2%HCL (LOCAL ANESTH.) INJ 20ML MDV ONE (08:25)
[2023-07-08] MEDS ORDERED: GLYCOPYRROLATE 0.2 MG/ML 1ML VIAL ONE (08:25)
[2023-07-08] MEDS: InsuLIN REG 1unit/0.01ml Soln (100units/ml) IV ONE (08:26)
[2023-07-08] MEDS ORDERED: MIDAZOLAM HCL 5 MG/ML-1ML VIAL ONE (08:26)
[2023-07-08] MEDS ORDERED: fentaNYL CITRATE 100 MCG/2 ML VL ONE (08:26)
[2023-07-08] MEDS ORDERED: NALOXONE HCL 0.4 MG/ML VIAL ONE (08:27)
[2023-07-08] MEDS ORDERED: FLUMAZENIL 0.1 MG/ML INJ 10ML MDV IV ONE (08:27)
[2023-07-08] MEDS ORDERED: EPINEPHrine HCL 1 MG/10 ML SYRG ONE (08:34)
[2023-07-08] MEDS: SODIUM BICARB 8.4% 50Meq/50ml SYR Vial IV ONE (09:01)
[2023-07-09] VITALS (110 sets, daily range): BP systolic 92–178; BP diastolic 61–110; PULSE 79–120; RESP 15–31; TEMP 98–100; O2SAT 92–99
[2023-07-09 04:25] LABS: Basophils # (auto) 0 10 ^3/uL (0-0.2); Basophils % (auto) 0.1 % (0.0-2.0); Eosinophils # (auto) 0 10 ^3/uL (0-0.8); Eosinophils % (auto) 0.1 % (0.0-7.0); Hematocrit 30.9 % (41.0-53.0); Hemoglobin 10.2 g/dL (13.5-17.5); Lymphocytes # (auto) 1.7 10 ^3/uL (0.4-5.4); Lymphocytes % (auto) 21.7 % (10.0-50.0); Mean Corpuscular Hemoglobin 28.5 pg (28.0-32.0); Mean Corpuscular Hgb Conc. 33.2 g/dL (32.0-36.0); Mean Corpuscular Volume 86.1 fL (80.0-100.0); Monocytes # (auto) 0.8 10 ^3/uL (0-1.3); Neutrophils # (auto) 5.3 10 ^3/uL (1.6-8.6); Neutrophils % (auto) 68.1 % (37.0-80.0); Nucleated Red Blood Cells % 0.5 %; Red Blood Cells 3.59 10^6/uL (4.5-5.90); Red Cell Distribution Width 14.8 % (11.8-14.3); White Blood Cell 7.8 10^3/uL (4.4-10.8)
[2023-07-09 04:34] LABS: Alanine Aminotransferase 12 U/L (7-40); Albumin 3.9 g/dL (3.2-4.8); Alkaline Phosphatase 45 U/L (46-116); Anion Gap 3 (5-15); Aspartate Aminotransferase 18 U/L (13-40); Blood Urea Nitrogen 49 mg/dL (9-23); Calcium 8.8 mg/dL (8.7-10.4); Carbon Dioxide 32 mmol/L (20-30); Chloride 106 mmol/L (98-107); Glucose 108 mg/dL (74-106); Potassium 5.1 mmol/L (3.5-5.1); Sodium 141 mmol/L (136-145)
[2023-07-09 04:35] LABS: Bilirubin, Total 0.3 mg/dL (0.2-1.0); Total Protein 6.3 g/dL (5.7-8.2)
[2023-07-09 08:01] LABS: Base Excess 4.6 mmol/L (-2.0-2.0)
[2023-07-09] MEDS: ENOXAPARIN SOD 40 MG/0.4 ML SYRINGE SC SCH (10:00)
[2023-07-10] VITALS (120 sets, daily range): BP systolic 87–184; BP diastolic 61–141; PULSE 66–108; RESP 15–33; TEMP 98.2–99.3; O2SAT 89–100
[2023-07-10 04:31] LABS: Basophils # (auto) 0 10 ^3/uL (0-0.2); Basophils % (auto) 0.2 % (0.0-2.0); Eosinophils # (auto) 0 10 ^3/uL (0-0.8); Eosinophils % (auto) 0.2 % (0.0-7.0); Hematocrit 31.3 % (41.0-53.0); Hemoglobin 10.2 g/dL (13.5-17.5); Lymphocytes # (auto) 1.7 10 ^3/uL (0.4-5.4); Mean Corpuscular Hemoglobin 28.2 pg (28.0-32.0); Mean Corpuscular Hgb Conc. 32.6 g/dL (32.0-36.0); Mean Corpuscular Volume 86.5 fL (80.0-100.0); Monocytes % (auto) 12.9 % (0.0-12.0); Neutrophils # (auto) 5.1 10 ^3/uL (1.6-8.6); Neutrophils % (auto) 64.7 % (37.0-80.0); Nucleated Red Blood Cells % 0.3 %; Red Blood Cells 3.62 10^6/uL (4.5-5.90); Red Cell Distribution Width 14.4 % (11.8-14.3); White Blood Cell 7.9 10^3/uL (4.4-10.8)
[2023-07-10 04:57] LABS: Alanine Aminotransferase 13 U/L (7-40); Alkaline Phosphatase 47 U/L (46-116); Anion Gap 6 (5-15); Calcium 9.1 mg/dL (8.7-10.4); Carbon Dioxide 31 mmol/L (20-30); Chloride 110 mmol/L (98-107); Glucose 85 mg/dL (74-106); Magnesium 2.4 mg/dL (1.6-2.6); Potassium 3.9 mmol/L (3.5-5.1)
[2023-07-10 04:58] LABS: Albumin 3.8 g/dL (3.2-4.8); Aspartate Aminotransferase 21 U/L (13-40); Bilirubin, Total 0.4 mg/dL (0.2-1.0); Total Protein 6.4 g/dL (5.7-8.2)
[2023-07-10 05:15] LABS: Blood Urea Nitrogen 33 mg/dL (9-23); Sodium 147 mmol/L (136-145)
[2023-07-10] MEDS: hydrALAZINE HCL 20 MG/ML VL IV PRN (05:28)
[2023-07-11] VITALS (120 sets, daily range): BP systolic 70–191; BP diastolic 47–108; PULSE 64–134; RESP 12–32; TEMP 97.9–100.6; O2SAT 86–99
[2023-07-11 04:17] LABS: Basophils # (auto) 0 10 ^3/uL (0-0.2); Basophils % (auto) 0.5 % (0.0-2.0); Eosinophils # (auto) 0 10 ^3/uL (0-0.8); Eosinophils % (auto) 0.5 % (0.0-7.0); Hematocrit 29.9 % (41.0-53.0); Hemoglobin 9.7 g/dL (13.5-17.5); Lymphocytes # (auto) 1.7 10 ^3/uL (0.4-5.4); Mean Corpuscular Hemoglobin 27.8 pg (28.0-32.0); Mean Corpuscular Hgb Conc. 32.6 g/dL (32.0-36.0); Mean Corpuscular Volume 85.4 fL (80.0-100.0); Monocytes # (auto) 0.8 10 ^3/uL (0-1.3); Monocytes % (auto) 12.3 % (0.0-12.0); Neutrophils # (auto) 3.8 10 ^3/uL (1.6-8.6); Neutrophils % (auto) 59.7 % (37.0-80.0); Nucleated Red Blood Cells % 0.5 %; Red Cell Distribution Width 14.6 % (11.8-14.3); White Blood Cell 6.3 10^3/uL (4.4-10.8)
[2023-07-11 04:32] LABS: Anion Gap 6 (5-15); Carbon Dioxide 29 mmol/L (20-30); Chloride 111 mmol/L (98-107); Potassium 3.9 mmol/L (3.5-5.1); Sodium 146 mmol/L (136-145)
[2023-07-11 04:38] LABS: Glucose 95 mg/dL (74-106)
[2023-07-11 04:39] LABS: BUN/Creatinine Ratio 40.3 (10.0-20.0); Blood Urea Nitrogen 29 mg/dL (9-23)
[2023-07-12] VITALS (125 sets, daily range): BP systolic 90–189; BP diastolic 35–113; PULSE 64–128; RESP 10–33; TEMP 98.6–99.9; O2SAT 88–98
[2023-07-12 04:34] LABS: Anion Gap 5 (5-15); Basophils # (auto) 0.1 10 ^3/uL (0-0.2); Basophils % (auto) 0.7 % (0.0-2.0); Carbon Dioxide 30 mmol/L (20-30); Chloride 114 mmol/L (98-107); Eosinophils # (auto) 0 10 ^3/uL (0-0.8); Eosinophils % (auto) 0.3 % (0.0-7.0); Hematocrit 28.9 % (41.0-53.0); Hemoglobin 9.5 g/dL (13.5-17.5); Lymphocytes # (auto) 1.8 10 ^3/uL (0.4-5.4); Lymphocytes % (auto) 22.3 % (10.0-50.0); Mean Corpuscular Hemoglobin 28.3 pg (28.0-32.0); Mean Corpuscular Hgb Conc. 32.9 g/dL (32.0-36.0); Mean Corpuscular Volume 86.1 fL (80.0-100.0); Monocytes # (auto) 1.3 10 ^3/uL (0-1.3); Monocytes % (auto) 16.1 % (0.0-12.0); Neutrophils # (auto) 4.8 10 ^3/uL (1.6-8.6); Neutrophils % (auto) 60.6 % (37.0-80.0); Nucleated Red Blood Cells % 0.1 %; Red Blood Cells 3.36 10^6/uL (4.5-5.90); Red Cell Distribution Width 14.7 % (11.8-14.3); Sodium 149 mmol/L (136-145); White Blood Cell 7.9 10^3/uL (4.4-10.8)
[2023-07-12 04:36] LABS: Calcium 8.7 mg/dL (8.7-10.4)
[2023-07-12 04:40] LABS: BUN/Creatinine Ratio 45.5 (10.0-20.0); Blood Urea Nitrogen 30 mg/dL (9-23); Glucose 88 mg/dL (74-106)
[2023-07-12 10:45] LABS: Base Excess 0.8 mmol/L (-2.0-2.0)
[2023-07-12 12:31] LABS: Base Excess 2.4 mmol/L (-2.0-2.0)
[2023-07-12] MEDS: EPINEPHrine HCL 0.5 ML NEB ONE (13:34)
[2023-07-12] MEDS: EPINEPHrine HCL 0.5 ML NEB NEB ONE ×2 (13:40→13:54)
[2023-07-12] MEDS: methylPREDNISolone SOD SUCC 40 MG/ML VL IV ONE (13:43)
[2023-07-12 15:57] LABS: Base Excess 1.7 mmol/L (-2.0-2.0)
[2023-07-12] MEDS: LABETALOL HCL 5 MG/ML 4ML SYRINGE IV ONE (16:13)
[2023-07-12] MEDS: LORazepam 2MG/ML-1ML VIAL IV ONE (16:41)
[2023-07-12] MEDS: methylPREDNISolone SOD SUCC 40 MG/ML VL IV SCH (20:58)
[2023-07-13] VITALS (70 sets, daily range): BP systolic 126–169; BP diastolic 71–107; PULSE 66–114; RESP 14–38; TEMP 98.1–99.5; O2SAT 83–100
[2023-07-13 04:16] LABS: Basophils # (auto) 0 10 ^3/uL (0-0.2); Basophils % (auto) 0.5 % (0.0-2.0); Eosinophils # (auto) 0 10 ^3/uL (0-0.8); Hematocrit 31.6 % (41.0-53.0); Hemoglobin 10.3 g/dL (13.5-17.5); Lymphocytes # (auto) 0.9 10 ^3/uL (0.4-5.4); Lymphocytes % (auto) 10.3 % (10.0-50.0); Mean Corpuscular Hemoglobin 27.9 pg (28.0-32.0); Mean Corpuscular Hgb Conc. 32.7 g/dL (32.0-36.0); Mean Corpuscular Volume 85.2 fL (80.0-100.0); Monocytes # (auto) 0.5 10 ^3/uL (0-1.3); Monocytes % (auto) 5.2 % (0.0-12.0); Neutrophils # (auto) 7.5 10 ^3/uL (1.6-8.6); Red Cell Distribution Width 14.6 % (11.8-14.3); White Blood Cell 8.9 10^3/uL (4.4-10.8)
[2023-07-13 04:29] LABS: Alanine Aminotransferase 39 U/L (7-40); Albumin 3.9 g/dL (3.2-4.8); Alkaline Phosphatase 54 U/L (46-116); Anion Gap 7 (5-15); Aspartate Aminotransferase 43 U/L (13-40); BUN/Creatinine Ratio 42.1 (10.0-20.0); Blood Urea Nitrogen 24 mg/dL (9-23); Calcium 9.4 mg/dL (8.5-10.1); Carbon Dioxide 27 mmol/L (20-30); Chloride 110 mmol/L (98-107); Glucose 93 mg/dL (74-106); Potassium 3.9 mmol/L (3.5-5.1); Sodium 144 mmol/L (136-145)
[2023-07-13 04:30] LABS: Bilirubin, Total 0.7 mg/dL (0.2-1.0); Total Protein 6.2 g/dL (5.7-8.2)
[2023-07-13 07:06] LABS: Base Excess 2.8 mmol/L (-2.0-2.0)
[2023-07-13] MEDS ORDERED: LOSARTAN POTASSIUM 50 MG TAB PO SCH (10:00)
[2023-07-13] MEDS: LISINOPRIL 10 MG TAB PO SCH (10:00)
[2023-07-14] VITALS (36 sets, daily range): BP systolic 122–176; BP diastolic 65–103; PULSE 72–96; RESP 3–32; TEMP 98.2–98.8; O2SAT 90–100
[2023-07-14 04:25] LABS: Basophils # (auto) 0 10 ^3/uL (0-0.2); Basophils % (auto) 0.2 % (0.0-2.0); Eosinophils # (auto) 0 10 ^3/uL (0-0.8); Hematocrit 33.3 % (41.0-53.0); Hemoglobin 10.7 g/dL (13.5-17.5); Lymphocytes # (auto) 0.9 10 ^3/uL (0.4-5.4); Lymphocytes % (auto) 8.2 % (10.0-50.0); Mean Corpuscular Hemoglobin 27.4 pg (28.0-32.0); Mean Corpuscular Hgb Conc. 32.3 g/dL (32.0-36.0); Mean Corpuscular Volume 84.9 fL (80.0-100.0); Monocytes # (auto) 0.7 10 ^3/uL (0-1.3); Neutrophils # (auto) 8.8 10 ^3/uL (1.6-8.6); Neutrophils % (auto) 84.6 % (37.0-80.0); Nucleated Red Blood Cells % 0.1 %; Red Blood Cells 3.91 10^6/uL (4.5-5.90); Red Cell Distribution Width 14.4 % (11.8-14.3); White Blood Cell 10.4 10^3/uL (4.4-10.8)
[2023-07-14 04:43] LABS: Alanine Aminotransferase 37 U/L (7-40); Albumin 3.7 g/dL (3.2-4.8); Alkaline Phosphatase 51 U/L (46-116); Anion Gap 7 (5-15); Aspartate Aminotransferase 23 U/L (13-40); BUN/Creatinine Ratio 34.4 (10.0-20.0); Blood Urea Nitrogen 21 mg/dL (9-23); Calcium 8.8 mg/dL (8.7-10.4); Carbon Dioxide 25 mmol/L (20-30); Chloride 111 mmol/L (98-107); Glucose 126 mg/dL (74-106); Magnesium 1.7 mg/dL (1.6-2.6); Potassium 3.6 mmol/L (3.5-5.1); Sodium 143 mmol/L (136-145)
[2023-07-14 04:44] LABS: Bilirubin, Total 0.6 mg/dL (0.2-1.0); Total Protein 6.2 g/dL (5.7-8.2)
[2023-07-15] VITALS (13 sets, daily range): BP systolic 131–151; BP diastolic 64–81; PULSE 51–92; RESP 16–21; TEMP 97.6–98.6; O2SAT 89–99
[2023-07-15 06:13] LABS: Basophils # (auto) 0.1 10 ^3/uL (0-0.2); Eosinophils # (auto) 0 10 ^3/uL (0-0.8); Hemoglobin 11.2 g/dL (13.5-17.5); Lymphocytes # (auto) 1.3 10 ^3/uL (0.4-5.4); Mean Corpuscular Volume 84.8 fL (80.0-100.0)
[2023-07-15 06:19] LABS: Basophils % (auto) 1.1 % (0.0-2.0); Hematocrit 34.2 % (41.0-53.0); Lymphocytes % (auto) 9.8 % (10.0-50.0); Mean Corpuscular Hemoglobin 27.8 pg (28.0-32.0); Mean Corpuscular Hgb Conc. 32.8 g/dL (32.0-36.0); Monocytes # (auto) 0.9 10 ^3/uL (0-1.3); Monocytes % (auto) 7.4 % (0.0-12.0); Neutrophils # (auto) 10.4 10 ^3/uL (1.6-8.6); Neutrophils % (auto) 81.7 % (37.0-80.0); Red Blood Cells 4.03 10^6/uL (4.5-5.90); Red Cell Distribution Width 14.5 % (11.8-14.3); White Blood Cell 12.7 10^3/uL (4.4-10.8)
[2023-07-15 06:29] LABS: Alanine Aminotransferase 35 U/L (7-40); Albumin 3.8 g/dL (3.2-4.8); Alkaline Phosphatase 52 U/L (46-116); Anion Gap 8 (5-15); Aspartate Aminotransferase 17 U/L (13-40); BUN/Creatinine Ratio 35.5 (10.0-20.0); Blood Urea Nitrogen 22 mg/dL (9-23); Carbon Dioxide 24 mmol/L (20-30); Chloride 112 mmol/L (98-107); Glucose 110 mg/dL (74-106); Magnesium 1.6 mg/dL (1.6-2.6); Potassium 3.7 mmol/L (3.5-5.1); Sodium 144 mmol/L (136-145)
[2023-07-15 06:30] LABS: Bilirubin, Total 0.9 mg/dL (0.2-1.0); Total Protein 6.4 g/dL (5.7-8.2)
[2023-07-15 09:27] LABS: Base Excess 1.1 mmol/L (-2.0-2.0)
[2023-07-16] VITALS (12 sets, daily range): BP systolic 138–143; BP diastolic 79–91; PULSE 65–95; RESP 16–20; TEMP 97.6–98; O2SAT 90–98
[2023-07-16 06:18] LABS: Basophils # (auto) 0.2 10 ^3/uL (0-0.2); Eosinophils # (auto) 0 10 ^3/uL (0-0.8)
[2023-07-16 06:22] LABS: Basophils % (auto) 1.2 % (0.0-2.0); Hematocrit 39.2 % (41.0-53.0); Hemoglobin 12.5 g/dL (13.5-17.5); Lymphocytes # (auto) 1.5 10 ^3/uL (0.4-5.4); Lymphocytes % (auto) 8.3 % (10.0-50.0); Mean Corpuscular Hemoglobin 27.1 pg (28.0-32.0); Mean Corpuscular Volume 84.7 fL (80.0-100.0); Monocytes # (auto) 1.3 10 ^3/uL (0-1.3); Monocytes % (auto) 7.1 % (0.0-12.0); Neutrophils # (auto) 14.9 10 ^3/uL (1.6-8.6); Neutrophils % (auto) 83.4 % (37.0-80.0); Red Blood Cells 4.62 10^6/uL (4.5-5.90); Red Cell Distribution Width 14.5 % (11.8-14.3); White Blood Cell 17.8 10^3/uL (4.4-10.8)
[2023-07-16 06:42] LABS: Alanine Aminotransferase 35 U/L (7-40); Albumin 4.3 g/dL (3.2-4.8); Alkaline Phosphatase 58 U/L (46-116); Anion Gap 8 (5-15); Aspartate Aminotransferase 16 U/L (13-40); BUN/Creatinine Ratio 28.6 (10.0-20.0); Blood Urea Nitrogen 20 mg/dL (9-23); Calcium 9.5 mg/dL (8.7-10.4); Carbon Dioxide 23 mmol/L (20-30); Chloride 109 mmol/L (98-107); Glucose 106 mg/dL (74-106); Magnesium 1.7 mg/dL (1.6-2.6); Potassium 3.6 mmol/L (3.5-5.1); Sodium 140 mmol/L (136-145)
[2023-07-16 06:43] LABS: Total Protein 7.2 g/dL (5.7-8.2)
[2023-07-16] MEDS ORDERED: PRED20TA2 PO (11:39)
== END 2023-07-16 16:21 | disposition home or self-care (01) | DRG 870 ==
LOC: EDBD 01:17 → ER 01:17 → ICU WEST 06:14 → TELE 06:14 → ICU WEST 12:09 → TELE-WESTW 07-14 18:28
PROVIDERS: ADMIT Internal Medicine Pulmonary Disease; ATTEND Internal Medicine Pulmonary Disease
PROC: 0BH17EZ Insertion of Endotracheal Airway into Trachea, Via Natural or Artificial Opening (ICD-10-PCS; principal; 2023-07-04)
PROC: 5A1955Z Respiratory Ventilation, Greater than 96 Consecutive Hours (ICD-10-PCS; 2023-07-04)
PROC: 5A09357 Assistance with Respiratory Ventilation, Less than 24 Consecutive Hours, Continuous Positive Airway Pressure (ICD-10-PCS; 2023-07-04)
PROC: 02HV33Z Insertion of Infusion Device into Superior Vena Cava, Percutaneous Approach (ICD-10-PCS; 2023-07-04)
PROC: B548ZZA Ultrasonography of Superior Vena Cava, Guidance (ICD-10-PCS; 2023-07-04)
PROC: 0B9G8ZZ Drainage of Left Upper Lung Lobe, Via Natural or Artificial Opening Endoscopic (ICD-10-PCS; 2023-07-08)
PROC: 0B9C8ZZ Drainage of Right Upper Lung Lobe, Via Natural or Artificial Opening Endoscopic (ICD-10-PCS; 2023-07-08)
PROC: 5A09357 Assistance with Respiratory Ventilation, Less than 24 Consecutive Hours, Continuous Positive Airway Pressure (ICD-10-PCS; 2023-07-12)
PROC: 5A09357 Assistance with Respiratory Ventilation, Less than 24 Consecutive Hours, Continuous Positive Airway Pressure (ICD-10-PCS; 2023-07-15)
DX: A41.9 Sepsis, unspecified organism (principal); J96.01 Acute respiratory failure with hypoxia; J96.02 Acute respiratory failure with hypercapnia; R65.21 Severe sepsis with septic shock; J15.9 Unspecified bacterial pneumonia; N17.0 Acute kidney failure with tubular necrosis; J44.1 Chronic obstructive pulmonary disease with (acute) exacerbation; J44.0 Chronic obstructive pulmonary disease with (acute) lower respiratory infection; D63.1 Anemia in chronic kidney disease; Z20.822 Contact with and (suspected) exposure to COVID-19; I48.91 Unspecified atrial fibrillation; N18.2 Chronic kidney disease, stage 2 (mild); J43.9 Emphysema, unspecified; E87.5 Hyperkalemia; I12.9 Hypertensive chronic kidney disease with stage 1 through stage 4 chronic kidney disease, or unspecified chronic kidney disease; F17.210 Nicotine dependence, cigarettes, uncomplicated; K59.00 Constipation, unspecified; F41.9 Anxiety disorder, unspecified; Z79.899 Other long term (current) drug therapy; Z82.49 Family history of ischemic heart disease and other diseases of the circulatory system
CPT/HCPCS: 36415; 36569; 36600; 71045; 71275; 74018; 76775; 80048; 80053; 81001; 82306; 82533; 82550; 82570; 82805; 82962; 83036; 83605; 83615; 83735; 83880; 83970; 84100; 84132; 84156; 84300; 84436; 84443; 84481; 84484; 85007; 85025; 85027; 85610; 85652; 85730; 86141; 87040; 87070; 87081; 87086; 87205; 87426; 87804; 92610; 93005; 94002; 94003; 94640; 94660; 96365; 96367; 96368; 96375; 97116; 97163; C9113; G0378; J0330; J1956; J2250; J2704; J3490; J7060

== ENCOUNTER 2024-01-23 12:21 | Inpatient (IN) | payer OTHER, MEDICAID ==
[~2024-01-23] VITALS: Ht 167.6 cm; Wt 65.3 kg
[~2024-01-23 12:21] MED LIST changes: -AZIT-43 PO; +IPRA0.00 NEB; -IPRIH; +PRED10TA PO; +TEMA15CA2 PO
[2024-01-23] MEDS ORDERED: AZITHROMYCIN 250 MG TAB PO ONE (12:30)
[2024-01-23] MEDS: methylPREDNISolone SOD SUCC 125 MG/2 ML VL IV ONE (12:40)
[2024-01-23] MEDS: AZITHROMYCIN 500MG/ 250ML 250 ML IV ONE (12:40)
[2024-01-23] MEDS: IPRATROPIUM BROM 0.5 MG/2.5ML INH SOL NEB ONE (12:50)
[2024-01-23] MEDS: ALBUTEROL SULF 2.5 MG/0.5ML(0.5%) NEB SOLN NEB ONE (12:50)
[2024-01-23 13:28] LABS: Base Excess -2.4 mmol/L (-2.0-2.0)
[2024-01-23 13:49] LABS: Basophils # (auto) 0.1 10 ^3/uL (0-0.2); Basophils % (auto) 1.3 % (0.0-2.0); Eosinophils # (auto) 0.2 10 ^3/uL (0-0.8); Eosinophils % (auto) 2.5 % (0.0-7.0); Hematocrit 44.3 % (41.0-53.0); Hemoglobin 14.8 g/dL (13.5-17.5); Lymphocytes # (auto) 3.1 10 ^3/uL (0.4-5.4); Lymphocytes % (auto) 38.5 % (10.0-50.0); Mean Corpuscular Hemoglobin 28.3 pg (28.0-32.0); Mean Corpuscular Hgb Conc. 33.5 g/dL (32.0-36.0); Mean Corpuscular Volume 84.4 fL (80.0-100.0); Monocytes # (auto) 0.6 10 ^3/uL (0-1.3); Monocytes % (auto) 7.5 % (0.0-12.0); Neutrophils # (auto) 4.1 10 ^3/uL (1.6-8.6); Neutrophils % (auto) 50.2 % (37.0-80.0); Platelet Count (auto) 356 10^3/uL (140-450); Red Blood Cells 5.24 10^6/uL (4.5-5.90); Red Cell Distribution Width 16.8 % (11.8-14.3); White Blood Cell 8.1 10^3/uL (4.4-10.8)
[2024-01-23 13:52] LABS: Chloride 109 mmol/L (98-107); Potassium 3.7 mmol/L (3.5-5.1); Sodium 140 mmol/L (136-145)
[2024-01-23 13:53] LABS: Anion Gap 2 (5-15); Calcium 9.8 mg/dL (8.7-10.4); Carbon Dioxide 29 mmol/L (20-30)
[2024-01-23 13:58] LABS: BUN/Creatinine Ratio 15.4 (10.0-20.0); Blood Urea Nitrogen 16 mg/dL (9-23); Glucose 90 mg/dL (74-106)
[2024-01-23 14:22] LABS: COVID19 ANTIGEN SOFIA FIA NEGATIVE (NEGATIVE); Rapid Influenza A Negative (Negative); Rapid Influenza B Negative (Negative)
[2024-01-23 14:37] VITALS: BP 117/66; PULSE 82; RESP 18; O2SAT 98
[2024-01-23 16:06] VITALS: BP 96/65; PULSE 76; O2SAT 97
[2024-01-23 20:55] VITALS: PULSE 90; RESP 16; O2SAT 97
[2024-01-23] MEDS ORDERED: ONDANSETRON HCL 4 MG/2 ML VIAL IV PRN (22:00)
[2024-01-23] MEDS ORDERED: ACETAMINOPHEN 325 MG TAB PO PRN (22:00)
[2024-01-23] MEDS: methylPREDNISolone SOD SUCC 40 MG/ML VL IV SCH (22:00)
[2024-01-23] MEDS ORDERED: NITROGLYCERIN 0.4 MG SL TAB SL PRN (22:00)
[2024-01-23] MEDS ORDERED: MORPHINE SULFATE INJ 2 MG/ml SYRG IV PRN (22:00)
[2024-01-23 23:43] VITALS: BP 124/78; PULSE 93; RESP 22; TEMP 98.1; O2SAT 96
[2024-01-24] VITALS (26 sets, daily range): BP systolic 106–124; BP diastolic 66–78; PULSE 66–102; RESP 16–22; TEMP 97.6–98.5; O2SAT 94–100
[2024-01-24] MEDS: IPRATROPIUM BROM 0.5 MG/2.5ML INH SOL NEB PRN (00:18)
[2024-01-24] MEDS: ALBUTEROL SULF 2.5 MG/0.5ML(0.5%) NEB SOLN NEB PRN (00:18)
[2024-01-24] MEDS ORDERED: HYDR25TA5 PO (01:08)
[2024-01-24] MEDS ORDERED: NICO21DI37 TOP (01:08)
[2024-01-24] MEDS: IPRATROPIUM BROM 0.5 MG/2.5ML INH SOL NEB SCH (02:00)
[2024-01-24] MEDS: ALBUTEROL SULF 2.5 MG/0.5ML(0.5%) NEB SOLN NEB SCH (02:00)
[2024-01-24 07:33] LABS: Monocytes % (auto) 2.7 % (0.0-12.0); Neutrophils % (auto) 88.2 % (37.0-80.0); White Blood Cell 9.8 10^3/uL (4.4-10.8)
[2024-01-24 07:34] LABS: Basophils # (auto) 0 10 ^3/uL (0-0.2); Basophils % (auto) 0.1 % (0.0-2.0); Eosinophils # (auto) 0 10 ^3/uL (0-0.8); Hemoglobin 13.1 g/dL (13.5-17.5); Lymphocytes # (auto) 0.9 10 ^3/uL (0.4-5.4); Mean Corpuscular Hemoglobin 27.8 pg (28.0-32.0); Mean Corpuscular Hgb Conc. 33.4 g/dL (32.0-36.0); Mean Corpuscular Volume 83.3 fL (80.0-100.0); Monocytes # (auto) 0.3 10 ^3/uL (0-1.3); Neutrophils # (auto) 8.6 10 ^3/uL (1.6-8.6); Platelet Count (auto) 305 10^3/uL (140-450); Red Blood Cells 4.69 10^6/uL (4.5-5.90); Red Cell Distribution Width 16.7 % (11.8-14.3)
[2024-01-24 07:42] LABS: Anion Gap 5 (5-15); Carbon Dioxide 26 mmol/L (20-30); Chloride 109 mmol/L (98-107); Potassium 3.7 mmol/L (3.5-5.1); Sodium 140 mmol/L (136-145)
[2024-01-24 07:43] LABS: Calcium 9.2 mg/dL (8.7-10.4)
[2024-01-24 07:47] LABS: Glucose 142 mg/dL (74-106)
[2024-01-24 07:48] LABS: BUN/Creatinine Ratio 23.2 (10.0-20.0); Blood Urea Nitrogen 19 mg/dL (9-23)
[2024-01-24] MEDS: ENOXAPARIN SOD 40 MG/0.4 ML SYRINGE SC SCH (09:44)
[2024-01-24] MEDS: hydroCHLOROthiazide 25 MG TAB PO SCH (10:00)
[2024-01-24] MEDS: AZITHROMYCIN 250 MG TAB PO ONE (13:29)
[2024-01-24] MEDS: NICOTINE 14 MG/24HR TOPICAL PATCH TD ONE (13:30)
[2024-01-24] MEDS: HYDROcodone-ACET 5/325MG TAB PO PRN (22:35)
[2024-01-25] VITALS (16 sets, daily range): BP systolic 102–106; BP diastolic 57–65; PULSE 68–92; RESP 16–20; TEMP 97.4–98.1; O2SAT 94–99
[2024-01-25] MEDS: MORPHINE SULFATE INJ 2 MG/ml SYRG IV PRN (02:33)
[2024-01-25 08:32] LABS: Alkaline Phosphatase 44 U/L (46-116); Anion Gap 1 (5-15); Calcium 9.8 mg/dL (8.7-10.4); Carbon Dioxide 29 mmol/L (20-30); Chloride 108 mmol/L (98-107); Sodium 138 mmol/L (136-145)
[2024-01-25 08:33] LABS: BUN/Creatinine Ratio 26.2 (10.0-20.0); Blood Urea Nitrogen 22 mg/dL (9-23); Glucose 124 mg/dL (74-106)
[2024-01-25 08:35] LABS: Aspartate Aminotransferase < 8 U/L (13-40)
[2024-01-25 08:36] LABS: Alanine Aminotransferase < 9 U/L (7-40); Bilirubin, Total 0.6 mg/dL (0.2-1.0); Total Protein 6.1 g/dL (5.7-8.2)
[2024-01-25] MEDS: AZITHROMYCIN 250 MG TAB PO SCH (09:47)
[2024-01-25] MEDS: NICOTINE 14 MG/24HR TOPICAL PATCH TD SCH (09:48)
[2024-01-25] MEDS ORDERED: ACET-1882 PO (17:48)
[2024-01-25] MEDS ORDERED: AZIT-43 PO (17:48)
[2024-01-25] MEDS ORDERED: PRED20TA2 PO (17:48)
== END 2024-01-25 19:34 | disposition home or self-care (01) | DRG 189 ==
LOC: EDBD 12:21 → ER 12:21 → TELE 22:05 → TELE-WESTW 23:43
PROVIDERS: ADMIT Internal Medicine Pulmonary Disease; ATTEND Internal Medicine Pulmonary Disease
PROC: 5A09357 Assistance with Respiratory Ventilation, Less than 24 Consecutive Hours, Continuous Positive Airway Pressure (ICD-10-PCS; principal; 2024-01-23)
DX: J96.21 Acute and chronic respiratory failure with hypoxia (principal); J44.1 Chronic obstructive pulmonary disease with (acute) exacerbation; J45.901 Unspecified asthma with (acute) exacerbation; I10 Essential (primary) hypertension; Z20.822 Contact with and (suspected) exposure to COVID-19; I48.91 Unspecified atrial fibrillation; F17.210 Nicotine dependence, cigarettes, uncomplicated; J43.9 Emphysema, unspecified; Z90.49 Acquired absence of other specified parts of digestive tract
CPT/HCPCS: 36415; 36600; 71045; 73010; 80048; 80053; 82805; 83880; 85025; 85379; 87426; 87804; 93005; 94640; 94660; 96365; 96366; 96375; G0378

== ENCOUNTER 2024-03-17 11:45 | Inpatient (IN) | payer OTHER, MEDICAID ==
[~2024-03-17] VITALS: Ht 172.7 cm; Wt 72.4 kg
[2024-03-17 11:45] VITALS: PULSE 123; RESP 21
[~2024-03-17 11:45] MED LIST changes: +ACET-1882 PO; +AZIT-43 PO; -HYDR12.59 PO; +HYDR25TA5 PO; +NICO21DI37 TOP; -PRED10TA PO
[2024-03-17] MEDS: methylPREDNISolone SOD SUCC 125 MG/2 ML VL IV ONE (11:56)
[2024-03-17] MEDS: IPRATROPIUM BROM 0.5 MG/2.5ML INH SOL NEB ONE ×2 (11:58→11:59)
[2024-03-17] MEDS: IPRATROPIUM BROM 0.5 MG/2.5ML INH SOL ONE (11:59)
[2024-03-17] MEDS: ALBUTEROL SULF 2.5 MG/0.5ML(0.5%) NEB SOLN ONE (11:59)
[2024-03-17] MEDS: ALBUTEROL SULF 2.5 MG/0.5ML(0.5%) NEB SOLN NEB ONE ×2 (12:00)
[2024-03-17 12:19] LABS: Basophils # (auto) 0.2 10 ^3/uL (0-0.2); Basophils % (auto) 1.3 % (0.0-2.0); Eosinophils # (auto) 0.5 10 ^3/uL (0-0.8); Eosinophils % (auto) 3.8 % (0.0-7.0); Hematocrit 43.8 % (41.0-53.0); Hemoglobin 14.3 g/dL (13.5-17.5); Lymphocytes # (auto) 4.5 10 ^3/uL (0.4-5.4); Lymphocytes % (auto) 35.1 % (10.0-50.0); Mean Corpuscular Hemoglobin 28.5 pg (28.0-32.0); Mean Corpuscular Hgb Conc. 32.6 g/dL (32.0-36.0); Mean Corpuscular Volume 87.5 fL (80.0-100.0); Monocytes # (auto) 0.9 10 ^3/uL (0-1.3); Monocytes % (auto) 7.3 % (0.0-12.0); Neutrophils # (auto) 6.7 10 ^3/uL (1.6-8.6); Neutrophils % (auto) 52.5 % (37.0-80.0); Platelet Count (auto) 305 10^3/uL (140-450); Red Cell Distribution Width 15.5 % (11.8-14.3); White Blood Cell 12.8 10^3/uL (4.4-10.8)
[2024-03-17] MEDS: MAGNESIUM SULFATE 1GM/100ML 100 ML IV SCH (12:39)
[2024-03-17 12:49] LABS: Albumin 4.8 g/dL (3.2-4.8); Alkaline Phosphatase 59 U/L (46-116); Anion Gap 3 (5-15); Aspartate Aminotransferase 10 U/L (13-40); BUN/Creatinine Ratio 19.5 (10.0-20.0); Bilirubin, Total 0.4 mg/dL (0.2-1.0); Blood Urea Nitrogen 22 mg/dL (9-23); Calcium 10.1 mg/dL (8.7-10.4); Carbon Dioxide 28 mmol/L (20-31); Chloride 111 mmol/L (98-107); Glucose 117 mg/dL (74-106); Potassium 4.2 mmol/L (3.5-5.1); Sodium 142 mmol/L (136-145); Total Protein 7.2 g/dL (5.7-8.2)
[2024-03-17 13:26] LABS: Alanine Aminotransferase < 9 U/L (7-40)
[2024-03-17 13:51] LABS: Base Excess -0.7 mmol/L (-2.0-3.0)
[2024-03-17] MEDS ORDERED: ACETAMINOPHEN 325 MG TAB PO PRN (17:45)
[2024-03-17] MEDS ORDERED: DOCUSATE SOD 100 MG CAP PO PRN (17:45)
[2024-03-17] MEDS: methylPREDNISolone SOD SUCC 125 MG/2 ML VL IV SCH (18:59)
[2024-03-17 19:09] VITALS: PULSE 84; RESP 17; O2SAT 97
[2024-03-17] MEDS: IPRATROPIUM BROM 0.5 MG/2.5ML INH SOL NEB SCH (19:09)
[2024-03-17] MEDS: ALBUTEROL SULF 2.5 MG/0.5ML(0.5%) NEB SOLN NEB SCH (19:09)
[2024-03-17 19:17] VITALS: PULSE 82; RESP 18; O2SAT 97
[2024-03-17 22:16] VITALS: BP 126/76; PULSE 93; RESP 18; TEMP 97.9; O2SAT 94
[2024-03-17 22:20] VITALS: PULSE 92; RESP 20; O2SAT 97
[2024-03-17 22:28] VITALS: PULSE 88; RESP 17; O2SAT 97
[2024-03-17] MEDS: ASPirin 81 mg TAB PO PRN (23:03)
[2024-03-17] MEDS: SODIUM CHLOR 0.9% PF (SALINE LOCK) 10ML VIAL/SYR IV SCH (23:07)
[2024-03-17] MEDS: HYDROcodone-ACET 5/325MG TAB PO PRN (23:26)
[2024-03-18] VITALS (17 sets, daily range): BP systolic 108–126; BP diastolic 64–76; PULSE 70–89; RESP 16–21; TEMP 97.9–98.5; O2SAT 6–99
[2024-03-18] MEDS ORDERED: INFLUENZA TRIVALENT 2024-2025 0.5 ML INJ IM ONE (00:45)
[2024-03-18 08:55] LABS: Basophils # (auto) 0 10 ^3/uL (0-0.2); Basophils % (auto) 0.1 % (0.0-2.0); Eosinophils # (auto) 0 10 ^3/uL (0-0.8); Hematocrit 39.6 % (41.0-53.0); Lymphocytes # (auto) 0.8 10 ^3/uL (0.4-5.4); Lymphocytes % (auto) 7.5 % (10.0-50.0); Mean Corpuscular Hemoglobin 28.5 pg (28.0-32.0); Mean Corpuscular Hgb Conc. 32.9 g/dL (32.0-36.0); Mean Corpuscular Volume 86.8 fL (80.0-100.0); Monocytes # (auto) 0.2 10 ^3/uL (0-1.3); Monocytes % (auto) 1.9 % (0.0-12.0); Neutrophils # (auto) 9.6 10 ^3/uL (1.6-8.6); Neutrophils % (auto) 90.5 % (37.0-80.0); Nucleated Red Blood Cells % 0.1 %; Platelet Count (auto) 256 10^3/uL (140-450); Red Blood Cells 4.56 10^6/uL (4.5-5.90); Red Cell Distribution Width 15.1 % (11.8-14.3); White Blood Cell 10.6 10^3/uL (4.4-10.8)
[2024-03-18 09:06] LABS: Albumin 4.1 g/dL (3.2-4.8); Alkaline Phosphatase 49 U/L (46-116); Anion Gap 7 (5-15); Aspartate Aminotransferase 10 U/L (13-40); BUN/Creatinine Ratio 30.6 (10.0-20.0); Blood Urea Nitrogen 26 mg/dL (9-23); Calcium 9.3 mg/dL (8.7-10.4); Carbon Dioxide 23 mmol/L (20-31); Chloride 110 mmol/L (98-107); Glucose 159 mg/dL (74-106); Sodium 140 mmol/L (136-145)
[2024-03-18 09:07] LABS: Alanine Aminotransferase < 9 U/L (7-40); Bilirubin, Total 0.4 mg/dL (0.2-1.0); Total Protein 6.1 g/dL (5.7-8.2)
[2024-03-18 09:29] LABS: Base Excess -1.9 mmol/L (-2.0-3.0)
[2024-03-18] MEDS: ASPirin 81 mg TAB PO SCH (10:35)
[2024-03-18] MEDS: ENOXAPARIN SOD 40 MG/0.4 ML SYRINGE SC SCH (10:35)
[2024-03-18] MEDS: hydroCHLOROthiazide 25 MG TAB PO SCH (10:36)
[2024-03-18] MEDS: NICOTINE 21MG/24 HR TOPICAL PATCH TD SCH (10:39)
[2024-03-18 10:49] LABS: Urine Bacteria None Seen /hpf (None Seen); Urine WBC None Seen /hpf (0 - 3)
[2024-03-18 10:55] LABS: Urine Blood Negative /uL (Negative); Urine Clarity Clear (Clear); Urine Color Yellow (Yellow); Urine Protein, UAD Negative (Negative); Urine Specific Gravity 1.032 (1.001-1.035); Urine Urobilinogen Normal (Negative)
[2024-03-18 14:31] LABS: INR 0.95 (0.9-1.15); Prothrombin Time 10.1 sec (9.3-11.8)
[2024-03-18] MEDS: IPRATROPIUM BROM 0.5 MG/2.5ML INH SOL NEB SCH (18:21)
[2024-03-18] MEDS: ALBUTEROL SULF 2.5 MG/0.5ML(0.5%) NEB SOLN NEB SCH (18:21)
[2024-03-19] VITALS (20 sets, daily range): BP systolic 112–125; BP diastolic 70–79; PULSE 72–120; RESP 16–24; TEMP 97.4–98.3; O2SAT 92–100
[2024-03-19] MEDS: methylPREDNISolone SOD SUCC 125 MG/2 ML VL IV SCH ×2 (00:23→23:30)
[2024-03-19 06:14] LABS: Basophils # (auto) 0 10 ^3/uL (0-0.2); Basophils % (auto) 0.2 % (0.0-2.0); Eosinophils # (auto) 0 10 ^3/uL (0-0.8); Hematocrit 37.5 % (41.0-53.0); Hemoglobin 12.7 g/dL (13.5-17.5); Lymphocytes # (auto) 0.7 10 ^3/uL (0.4-5.4); Lymphocytes % (auto) 5.7 % (10.0-50.0); Mean Corpuscular Hemoglobin 28.9 pg (28.0-32.0); Mean Corpuscular Hgb Conc. 33.7 g/dL (32.0-36.0); Mean Corpuscular Volume 85.7 fL (80.0-100.0); Monocytes # (auto) 0.5 10 ^3/uL (0-1.3); Monocytes % (auto) 3.9 % (0.0-12.0); Neutrophils # (auto) 11.2 10 ^3/uL (1.6-8.6); Neutrophils % (auto) 90.2 % (37.0-80.0); Nucleated Red Blood Cells % 0.3 %; Platelet Count (auto) 247 10^3/uL (140-450); Red Blood Cells 4.38 10^6/uL (4.5-5.90); Red Cell Distribution Width 15.2 % (11.8-14.3); White Blood Cell 12.4 10^3/uL (4.4-10.8)
[2024-03-19 06:30] LABS: Anion Gap 4 (5-15); Carbon Dioxide 27 mmol/L (20-31); Chloride 107 mmol/L (98-107); Potassium 3.9 mmol/L (3.5-5.1); Sodium 138 mmol/L (136-145)
[2024-03-19 06:32] LABS: Calcium 9.6 mg/dL (8.7-10.4)
[2024-03-19 06:36] LABS: BUN/Creatinine Ratio 30.1 (10.0-20.0); Blood Urea Nitrogen 25 mg/dL (9-23); Glucose 142 mg/dL (74-106)
[2024-03-19] MEDS: NICOTINE 21MG/24 HR TOPICAL PATCH TD SCH (10:00)
[2024-03-19] MEDS: cefTRIAXone 2GM/50ML D5W 50 ML IV SCH (10:01)
[2024-03-19] MEDS: AZITHROMYCIN 500MG/ 250ML 250 ML IV SCH (11:43)
[2024-03-19] MEDS ORDERED: LORazepam 2MG/ML-1ML VIAL IV PRN (13:45)
[2024-03-19] MEDS: HYDROmorphone HCL 2 MG/ML VL/or syr IV PRN (18:03)
[2024-03-19] MEDS: guaiFENesin-DM 100/10mg/5ml SYR PO PRN (21:24)
[2024-03-19] MEDS ORDERED: hydrALAZINE HCL 20 MG/ML VL IV PRN (23:30)
[2024-03-20] VITALS (15 sets, daily range): BP systolic 99–150; BP diastolic 68–83; PULSE 60–84; RESP 11–20; TEMP 97.4–98.5; O2SAT 92–99
[2024-03-20 00:12] LABS: COVID19 ANTIGEN SOFIA FIA NEGATIVE (NEGATIVE); Rapid Influenza A Negative (Negative); Rapid Influenza B Negative (Negative)
[2024-03-20 01:37] LABS: INR 0.93 (0.9-1.15); Partial Thromboplastin Time 25.8 SEC (24.5-34.5); Prothrombin Time 9.9 sec (9.3-11.8)
[2024-03-20] MEDS: ANGIOMAX 250 MG VIAL IV ONE (09:35)
[2024-03-20] MEDS: HEPARIN SODIUM (PORCINE) 5000 UNITS/ML 1ML VIAL ONE (09:36)
[2024-03-20] MEDS: MIDAZOLAM HCL 2MG/2ML 2ml VIAL (1mg/ml) ONE (09:36)
[2024-03-20] MEDS: SODIUM CHL 0.9% 0 ML ONE (09:36)
[2024-03-20] MEDS: VERAPAMIL 2.5MG/ML INJ 2ML VIAL IV ONE (09:36)
[2024-03-20] MEDS: LIDOCAINE 2%HCL (LOCAL ANESTH.) INJ 20ML MDV ONE (09:36)
[2024-03-20] MEDS: fentaNYL CITRATE 100 MCG/2 ML VL ONE (09:36)
[2024-03-20] MEDS: ONDANSETRON HCL 4 MG/2 ML VIAL IV PRN (12:06)
[2024-03-20] MEDS ORDERED: AZITTAB PO (14:10)
[2024-03-20] MEDS ORDERED: PRED20TA2 PO (14:10)
== END 2024-03-20 16:39 | disposition home or self-care (01) | DRG 189 ==
LOC: EDBD 11:45 → ER 11:45 → EDUNIT# 11:45 → OVERFLOW 17:44 → EAST 17:49
PROVIDERS: ADMIT Internal Medicine; ATTEND Internal Medicine
PROC: 5A09357 Assistance with Respiratory Ventilation, Less than 24 Consecutive Hours, Continuous Positive Airway Pressure (ICD-10-PCS; 2024-03-17)
PROC: 5A09357 Assistance with Respiratory Ventilation, Less than 24 Consecutive Hours, Continuous Positive Airway Pressure (ICD-10-PCS; 2024-03-19)
PROC: 4A023N7 Measurement of Cardiac Sampling and Pressure, Left Heart, Percutaneous Approach (ICD-10-PCS; principal; 2024-03-20)
PROC: B2111ZZ Fluoroscopy of Multiple Coronary Arteries using Low Osmolar Contrast (ICD-10-PCS; 2024-03-20)
DX: J96.21 Acute and chronic respiratory failure with hypoxia (principal); I21.A1 Myocardial infarction type 2; R65.11 Systemic inflammatory response syndrome (SIRS) of non-infectious origin with acute organ dysfunction; J44.1 Chronic obstructive pulmonary disease with (acute) exacerbation; K40.30 Unilateral inguinal hernia, with obstruction, without gangrene, not specified as recurrent; E66.9 Obesity, unspecified; Z68.24 Body mass index [BMI] 24.0-24.9, adult; Z20.822 Contact with and (suspected) exposure to COVID-19; I10 Essential (primary) hypertension; I48.91 Unspecified atrial fibrillation; E87.8 Other disorders of electrolyte and fluid balance, not elsewhere classified; F17.210 Nicotine dependence, cigarettes, uncomplicated; Z87.442 Personal history of urinary calculi; Z82.49 Family history of ischemic heart disease and other diseases of the circulatory system; Z80.9 Family history of malignant neoplasm, unspecified
CPT/HCPCS: 36415; 36600; 71045; 71250; 74176; 80048; 80053; 81001; 82805; 83880; 84484; 85025; 85610; 85730; 86850; 86900; 86901; 87426; 87804; 93005; 93306; 93458; 94640; 94660; 99152; 99291; G0378; J2250; J2405

== ENCOUNTER 2024-04-04 23:02 | Inpatient (IN) | payer OTHER, MEDICAID ==
[~2024-04-04] VITALS: Ht 170.2 cm; Wt 67.4 kg
[~2024-04-04 23:02] MED LIST changes: -AZIT-43 PO; +AZITTAB PO; -IPRA0.00 NEB; -OXY5T PO
--- NOTE | 2024-04-04 23:29 | ED.PDOC ---
SOB-HPI HPI Comments A 58 year old male brought in by EMS presents to the ED with a chief complaint of shortness of breath onset today. Per EMS, patient was given 2 breathing treatments prior to ED arrival. Patient states he began experiencing shortness of breath a few hours ago, used his inhaler but did not notice an improvement as well as chest pain. He has a past medical history of COPD, Asthma, a-fib, HTN. No other symptoms or modifying factors present at this time. Chief Complaint: Shortness of Breath Time Seen by MD: 23:20 Primary Care Provider: UNKNOWN NAME Reviewed notes: Medications, Allergies Mode of Arrival: EMS Severity: Moderate Timing: Hours Duration: Since onset History of: Asthma, COPD Prehospital treatment: Treatment Associated Signs and Symptoms: Wheeze, Chest Pain Past Medical History PAST MEDICAL HISTORY: AFIB, Asthma, COPD, HTN Surgical History: Appendectomy Family History Family History: Family hx of Cancer Social History Smoker: Cigarettes Alcohol: Denies ETOH Use Drugs: Denies Drug Use Lives In: Home Constitutional: denies: chills, diaphoresis, fatigue, fever, malaise, sweats, weakness, others EENTM: denies: blurred vision, double vision, ear bleeding, ear discharge, ear drainage, ear pain, ear ringing, eye pain, eye redness, hearing loss, mouth pain, mouth swelling, nasal discharge, nose bleeding, nose congestion, nose pain, photophobia, tearing, throat pain, throat swelling, voice changes, others Respiratory: reports: shortness of breath; denies: cough, hemoptysis, orthopnea, SOB at rest, SOB with excertion, stridor, wheezing, others Cardiovascular: reports: chest pain; denies: dizzy spells, diaphoresis, Dyspnea on exertion, edema, irregular heart beat, left arm pain, lightheadedness, palpitations, PND, syncope, others Gastrointestinal: denies: abdomen distended, abdominal pain, blood streaked bowels, constipated, diarrhea, dysphagia, difficulty swallowing, hematemesis, melena, nausea, poor appetite, poor fluid intake, rectal bleeding, rectal pain, vomiting, others Genitourinary: denies: burning, dysuria, flank pain, frequency, hematuria, incontinence, penile discharge, penile sore, pain, testicle pain, testicle swelling, urgency, others Neurological: denies: dizziness, fainting, headache, left sided numbness, left sided weakness, numbness, paresthesia, pre-existing deficit, right sided numbness, right sided weakness, seizure, speech problems, tingling, tremors, weakness, others Musculoskeletal: denies: back pain, gout, joint pain, joint swelling, muscle pain, muscle stiffness, neck pain, others Integumetry: denies: bruises, change in color, change in hair/nails, dryness, laceration, lesions, lumps, rash, wounds, others Allergic/Immunocompromised: denies: Difficulty Healing, Frequent Infections, Hives, Itching, others Hematologic/Lymphatic: denies: anemia, blood clots, easy bleeding, easy bruising, swollen glands, others Endocrine: denies: excessive hunger, excessive sweating, excessive thirst, excessive urination, flushing, intolerance to cold, intolerance to heat, unexplained weight gain, unexplained weight loss, others Psychiatric: denies: anxiety, bipolar disorder, depression, hopeless, panic disorder, schizophrenia, sleepless, suicidal, others All Other Systems: Reviewed and Negative Physical Exam General Appearance: No Apparent Distress, Normal HEENT: Normal ENT Inspection, Pharynx Normal, TMs Normal Neck: Full Range of Motion, Non-Tender, Normal, Normal Inspection Respiratory: Expiration, Wheezing Cardiovascular: No Edema, No JVD, No Murmur, No Gallop, Tachycardia Breast Exam: Deferred Gastrointestinal: No Organomegaly, Non Tender, No Pulsatile Mass, Normal Bowel Sounds, Soft Genitalia: Deferred Pelvic: Deferred Rectal: Deferred Extremities: No calf tenderness, Normal capillary refill, Normal inspection, Normal range of motion, Non-tender, No pedal edema Musculoskeletal : Apperance: Normal Neurologic: Alert, oil operator II-XII nml as Tested, No Motor Deficits, Normal Affect, Normal Mood, No Sensory Deficits Cerebellar Function: Normal Reflexes: Normal Skin: Dry, Normal Color, Warm Lymphatic: No Adenopathy Was a procedure done? Was a procedure done?: No Differential Dx Differential Diagnosis: Bronchitis, CHF, COPD, Pneumonia X-Ray, Labs, Meds, VS Vital Signs Date Time Temp Pulse Resp B/P (MAP) Pulse Ox O2 Delivery O2 Flow Rate FiO2 04/04/24 23:58 18 98 Nasal Cannula* 3 32 04/04/24 23:16 111 04/04/24 23:02 98.8 116 26 145/87 (106) 98 Lab Test 04/04/24 23:20 Range/Units White Blood Count 9.6 4.4-10.8 10^3/uL Red Blood Count 5.10 4.5-5.90 10^6/uL Hemoglobin 14.6 13.5-17.5 g/dL Hematocrit 43.9 41.0-53.0 % Mean Corpuscular Volume 86.2 80.0-100.0 fL Mean Corpuscular Hemoglobin 28.6 28.0-32.0 pg Mean Corpuscular Hemoglobin Concent 33.2 32.0-36.0 g/dL Red Cell Distribution Width 15.4 H 11.8-14.3 % Platelet Count 355 140-450 10^3/uL Mean Platelet Volume 6.7 L 6.9-10.8 fL Neutrophils (%) (Auto) 72.2 37.0-80.0 % Lymphocytes (%) (Auto) 17.5 10.0-50.0 % Monocytes (%) (Auto) 8.9 0.0-12.0 % Eosinophils (%) (Auto) 0.7 0.0-7.0 % Basophils (%) (Auto) 0.7 0.0-2.0 % Neutrophils # (Auto) 7.0 1.6-8.6 10 ^3/uL Lymphocytes # (Auto) 1.7 0.4-5.4 10 ^3/uL Monocytes # (Auto) 0.9 0-1.3 10 ^3/uL Eosinophils # (Auto) 0.1 0-0.8 10 ^3/uL Basophils # (Auto) 0.1 0-0.2 10 ^3/uL Nucleated Red Blood Cells 0.1 % Sodium Level 143 136-145 mmol/L Potassium Level 3.2 L 3.5-5.1 mmol/L Chloride Level 110 H 98-107 mmol/L Carbon Dioxide Level 27 20-31 mmol/L Anion Gap 6 5-15 Blood Urea Nitrogen 9 9-23 mg/dL Creatinine 0.92 0.700-1.30 mg/dL Glomerular Filtration Rate Calc 96 >90 mL/min BUN/Creatinine Ratio 9.8 L 10.0-20.0 Serum Glucose 119 H 74-106 mg/dL Calcium Level 9.9 8.7-10.4 mg/dL Magnesium Level 1.5 L 1.6-2.6 mg/dL Total Bilirubin 0.6 0.2-1.0 mg/dL Aspartate Amino Transferase (AST) 23 13-40 U/L Alanine Aminotransferase (ALT) 26 7-40 U/L Alkaline Phosphatase 61 46-116 U/L Troponin I High Sensitivity Pending B-Type Natriuretic Peptide Pending Total Protein 7.4 5.7-8.2 g/dL Albumin 5.1 H 3.2-4.8 g/dL Current Medications Medications (Trade) Dose Ordered Sig/Milvia Route Start Time Stop Time Status Last Admin Albuterol (Ventolin Medneb) 5 mg ONCE ONCE NEB 04/04/24 23:30 04/04/24 23:31 DC 04/04/24 23:51 Ipratropium [place] (Atrovent Medneb) 0.5 mg ONCE ONCE NEB 04/04/24 23:30 04/04/24 23:31 DC 04/04/24 23:51 [place] [id number] Ph: [phone] DIAGNOSTIC IMAGING Diagnostic Imaging Report : [id number] Signed PATIENT: YONATHAN VARNER ACCT: [id number] UNIT: [id number] : 1965 LOC: ER ROOM / BED: / AGE / SEX: 58 / M ADM STATUS: REG ER SERVICE ORDERING PHYSICIAN: RADHA WEISS MD PROCEDURE(s): CXRP - CHEST PORTABLE REASON: SOB ORDER NUMBER(s): [id number], ACCESSION NUMBER(s): [id number] CHEST RADIOGRAPH Indication:SOB Technique: Single frontal view of the chest was obtained Comparison: XY CHEST PORTABLE on DOS: 03/17/24, XY CHEST PORTABLE on DOS: 01/23/24, XY CHEST XRAY 1 VIEW on DOS: 07/15/23 FINDINGS: Lines and Tubes: None Lungs: No focal consolidation. Pleura: No effusion. No pneumothorax. Cardiomediastinal contours: Unremarkable Bones: No acute osseous abnormality. IMPRESSION: No acute cardiopulmonary disease. ATED BY: MICK SETHI DO DICTATED DATE/TIME: [id number] SIGNED BY: JOSSIE MICK Mcgrath DO SIGNED DATE/TIME: 04/04/242348 CC: Time of 1ST Reevaluation: 23:50 Reevaluation 1ST: Unchanged Patient Education/Counseling: Diagnosis, Treatment, Prognosis Family Education/Counseling: No Family Present Departure 1 Departure Time of Disposition: 00:00 (Patient presented with acute shortness of breath concerning for acute on chronic COPD Exacerbation, Pneumonia, ACS, CHF, Pneumothorax. Less likely PE, Dissection. Data: 1. I ordered and reviewed the result of at least 3 labs including a CBC, BMP, and Troponin. 2. I independently interpreted the following tests: Chest X-ray shows .Risk:This patient has a high risk of morbidity due to further diagnostic testing or treatment and may suffer from respiratory or cardiac etiology . Workup reveals a likely COPD Exacerbation and patient should be admitted for further workup. and possible expert consultation.) Impression: Primary Impression: Acute exacerbation of chronic obstructive pulmonary disease (COPD) Disposition: ADMITTED INPATIENT Admit to: Med Surg Condition: Serious Critical Care Note Critical Care Time?: Yes Critical care comment: Acute shortness of breath Authorized and Performed by: Radha Weiss MD Total critical care time: Approximately 42 minutes Due to a high probability of clinically significant, life threatening deterioration, the patient required my highest level of preparedness to intervene emergently and I personally spent this critical care time directly and personally managing the patient. This critical care time included obtaining a history; examining the patient; pulse oximetry; ordering and review of studies; arranging urgent treatment with development of a management plan; evaluation of patient's response to treatment; frequent reassessment; and, discussions with other providers. This critical care time was performed to assess and manage the high probability of imminent, life-threatening deterioration that could result in multi-organ failure. It was exclusive of separately billable procedures and treating other patients and teaching time. Please see my other sections and the rest of the note for further information on patient assessment and treatment. Stability Stability form required: No Heart Score Heart Score: Heart Score Response (Comments) Value History Slightly Suspicious 0 EKG Normal 0 Age 45-64 1 Risk Factors 1 or 2 risk factors 1 Troponin 1-2 x's Normal limit 1 Total 3 I personally scribed for RADHA WEISS MD ([email or web address]) on 04/04/24 at 23:28. Electronically submitted by Zaida Wahl ([email or web address]). I personally scribed for RADHA WEISS MD ([email or web address]) on 04/04/24 at 23:59. Electronically submitted by Zaida Wahl ([email or web address]). RADHA WEISS MD Apr 04, 2024 23:28
[2024-04-04 23:33] LABS: Basophils # (auto) 0.1 10 ^3/uL (0-0.2); Basophils % (auto) 0.7 % (0.0-2.0); Eosinophils # (auto) 0.1 10 ^3/uL (0-0.8); Eosinophils % (auto) 0.7 % (0.0-7.0); Hematocrit 43.9 % (41.0-53.0); Hemoglobin 14.6 g/dL (13.5-17.5); Lymphocytes # (auto) 1.7 10 ^3/uL (0.4-5.4); Lymphocytes % (auto) 17.5 % (10.0-50.0); Mean Corpuscular Hemoglobin 28.6 pg (28.0-32.0); Mean Corpuscular Hgb Conc. 33.2 g/dL (32.0-36.0); Mean Corpuscular Volume 86.2 fL (80.0-100.0); Monocytes # (auto) 0.9 10 ^3/uL (0-1.3); Monocytes % (auto) 8.9 % (0.0-12.0); Neutrophils % (auto) 72.2 % (37.0-80.0); Nucleated Red Blood Cells % 0.1 %; Platelet Count (auto) 355 10^3/uL (140-450); Red Cell Distribution Width 15.4 % (11.8-14.3); White Blood Cell 9.6 10^3/uL (4.4-10.8)
[2024-04-04] MEDS: IPRATROPIUM BROM 0.5 MG/2.5ML INH SOL NEB ONE (23:51)
[2024-04-04] MEDS: ALBUTEROL SULF 2.5 MG/0.5ML(0.5%) NEB SOLN NEB ONE (23:51)
--- NOTE | 2024-04-04 23:51 | DVH ---
CHEST RADIOGRAPH Indication:SOB Technique: Single frontal view of the chest was obtained Comparison: XY CHEST PORTABLE on DOS: 03/17/24, XY CHEST PORTABLE on DOS: 01/23/24, XY CHEST XRAY 1 EW on DOS: 07/15/23 FINDINGS: Lines and Tubes: None Lungs: No focal consolidation. Pleura: No effusion. No pneumothorax. Cardiomediastinal contours: Unremarkable Bones: No acute osseous abnormality. IMPRESSION: No acute cardiopulmonary disease.
[2024-04-04 23:52] LABS: Alanine Aminotransferase 26 U/L (7-40); Albumin 5.1 g/dL (3.2-4.8); Alkaline Phosphatase 61 U/L (46-116); Anion Gap 6 (5-15); Aspartate Aminotransferase 23 U/L (13-40); BUN/Creatinine Ratio 9.8 (10.0-20.0); Blood Urea Nitrogen 9 mg/dL (9-23); Calcium 9.9 mg/dL (8.7-10.4); Carbon Dioxide 27 mmol/L (20-31); Chloride 110 mmol/L (98-107); Glucose 119 mg/dL (74-106); Magnesium 1.5 mg/dL (1.6-2.6); Potassium 3.2 mmol/L (3.5-5.1); Sodium 143 mmol/L (136-145)
[2024-04-04 23:53] LABS: Bilirubin, Total 0.6 mg/dL (0.2-1.0); Total Protein 7.4 g/dL (5.7-8.2)
[2024-04-05] VITALS (17 sets, daily range): BP systolic 116–133; BP diastolic 62–86; PULSE 80–114; RESP 16–22; TEMP 97.5–98.2; O2SAT 91–97
[2024-04-05] MEDS: AZITHROMYCIN 250 MG TAB PO ONE
[2024-04-05] MEDS: methylPREDNISolone SOD SUCC 125 MG/2 ML VL IV ONE (00:01)
[2024-04-05] MEDS ORDERED: MORPHINE SULFATE INJ 2 MG/ml SYRG IV PRN (00:30)
[2024-04-05] MEDS ORDERED: IPRATROPIUM BROM 0.5 MG/2.5ML INH SOL NEB PRN (00:30)
[2024-04-05] MEDS ORDERED: ALBUTEROL SULF 2.5 MG/0.5ML(0.5%) NEB SOLN NEB PRN (00:30)
[2024-04-05] MEDS ORDERED: NITROGLYCERIN 0.4 MG SL TAB SL PRN (00:30)
[2024-04-05] MEDS: MAGNESIUM SULFATE 1GM/100ML 100 ML IV SCH (00:40)
[2024-04-05] MEDS: POTASSIUM CHL 20 Meq TABLET PO ONE (00:40)
[2024-04-05] MEDS: HYDROcodone-ACET 5/325MG TAB PO ONE (04:12)
--- NOTE | 2024-04-05 06:22 | DVHHP2 ---
History of Present Illness Reason for Visit: Shortness of breath History of Present Illness 68-year-old male presents for evaluation of shortness for breath. Patient reports a one day history of worsening shortness for breath not being relieved by inhalers and nebulizer at home. Reports mild chest pressure. Denies cough or fever. No other acute complaints reported. Past Medical History Asthma, COPD, hypertension, atrial fibrillation Past Surgical History Appendectomy Family History Cancer Smoke: <1 pack per day ALCOHOL: none Drugs: None Lives: with Family Review of Systems Review of Systems Review of systems are currently negative otherwise addressed in HPI. Allergies: Coded Allergies: NO KNOWN ALLERGIES (Unverified , 12/20/22) Medications Current Medications Medications Dose Ordered Sig/Milvia Route Start Time Stop Time Status Last Admin Dose Admin Hydrochlorothiazide 25 mg DAILY PO 04/05/24 10:00 Albuterol 2.5 mg Q6HPRN PRN NEB 04/05/24 00:30 Ipratropium [place] 0.5 mg Q6HPRN PRN NEB 04/05/24 00:30 Methylprednisolone Sodium Succinate 40 mg BID IV 04/05/24 10:00 04/06/24 00:00 Temazepam 15 mg QHSP PRN PO 04/05/24 00:30 Ondansetron HCl 4 mg Q4HP PRN IV 04/05/24 00:30 Acetaminophen 650 mg Q6HP PRN PO 04/05/24 00:30 Nitroglycerin 0.4 mg Q5MINP PRN SL 04/05/24 00:30 Morphine Sulfate 2 mg Q30M PRN IV 04/05/24 00:30 Exam Vital Signs Vital Signs Date Time Temp Pulse Resp B/P (MAP) Pulse Ox O2 Delivery O2 Flow Rate FiO2 04/05/24 05:00 97.9 82 18 125/75 (92) 91 97.9 04/05/24 03:05 Nasal Cannula* 3 32 Exam Gen: 58-year-old male in mild distress Skin: Warm, dry, normal color and texture, no rash. HEENT: Normocephalic atraumatic, mucous membranes moist and pink. Neck: Cervical and supraclavicular nodes normal without enlargement, trachea is midline, thyroid gland is normal without masses. Pulmonary: Diminished breath sounds bilaterally Cardiac: Regular rate and rhythm. No murmur Abdomen: Soft, nontender, nondistended, bowel sounds present all 4 quadrants, no guarding, no rigidity, no organomegaly. Extremities: No cyanosis, clubbing, no edema Neuro: Cranial nerves II through XII grossly intact, normal affect and speech, no focal motor deficits. Labs/Xrays ORDERING PHYSICIAN: RADHA WEISS MD PROCEDURE(s): CXRP - CHEST PORTABLE REASON: SOB ORDER NUMBER(s): [id number], ACCESSION NUMBER(s): [id number] CHEST RADIOGRAPH Indication:SOB Technique: Single frontal view of the chest was obtained Comparison: XY CHEST PORTABLE on DOS: 03/17/24, XY CHEST PORTABLE on DOS: 01/23/24, XY CHEST XRAY 1 VIEW on DOS: 07/15/23 FINDINGS: Lines and Tubes: None Lungs: No focal consolidation. Pleura: No effusion. No pneumothorax. Cardiomediastinal contours: Unremarkable Bones: No acute osseous abnormality. IMPRESSION: No acute cardiopulmonary disease. Labs Test 04/04/24 23:20 Range/Units White Blood Count 9.6 4.4-10.8 10^3/uL Red Blood Count 5.10 4.5-5.90 10^6/uL Hemoglobin 14.6 13.5-17.5 g/dL Hematocrit 43.9 41.0-53.0 % Mean Corpuscular Volume 86.2 80.0-100.0 fL Mean Corpuscular Hemoglobin 28.6 28.0-32.0 pg Mean Corpuscular Hemoglobin Concent 33.2 32.0-36.0 g/dL Red Cell Distribution Width 15.4 H 11.8-14.3 % Platelet Count 355 140-450 10^3/uL Mean Platelet Volume 6.7 L 6.9-10.8 fL Neutrophils (%) (Auto) 72.2 37.0-80.0 % Lymphocytes (%) (Auto) 17.5 10.0-50.0 % Monocytes (%) (Auto) 8.9 0.0-12.0 % Eosinophils (%) (Auto) 0.7 0.0-7.0 % Basophils (%) (Auto) 0.7 0.0-2.0 % Neutrophils # (Auto) 7.0 1.6-8.6 10 ^3/uL Lymphocytes # (Auto) 1.7 0.4-5.4 10 ^3/uL Monocytes # (Auto) 0.9 0-1.3 10 ^3/uL Eosinophils # (Auto) 0.1 0-0.8 10 ^3/uL Basophils # (Auto) 0.1 0-0.2 10 ^3/uL Nucleated Red Blood Cells 0.1 % D-Dimer, Quantitative 0.26 0.0-0.49 mg/L FEU Sodium Level 143 136-145 mmol/L Potassium Level 3.2 L 3.5-5.1 mmol/L Chloride Level 110 H 98-107 mmol/L Carbon Dioxide Level 27 20-31 mmol/L Anion Gap 6 5-15 Blood Urea Nitrogen 9 9-23 mg/dL Creatinine 0.92 0.700-1.30 mg/dL Glomerular Filtration Rate Calc 96 >90 mL/min BUN/Creatinine Ratio 9.8 L 10.0-20.0 Serum Glucose 119 H 74-106 mg/dL Calcium Level 9.9 8.7-10.4 mg/dL Magnesium Level 1.5 L 1.6-2.6 mg/dL Total Bilirubin 0.6 0.2-1.0 mg/dL Aspartate Amino Transferase (AST) 23 13-40 U/L Alanine Aminotransferase (ALT) 26 7-40 U/L Alkaline Phosphatase 61 46-116 U/L Troponin I High Sensitivity 4 </=54 ng/L B-Type Natriuretic Peptide 11.27 0-100 pg/mL Total Protein 7.4 5.7-8.2 g/dL Albumin 5.1 H 3.2-4.8 g/dL Assessment/Plan Assessment/Plan Assessment Acute on chronic hypoxic respiratory failure COPD exacerbation Electrolyte imbalance Plan Admit the patient to telemetry to the hospitalist Med nebs Resume home medications Continue treatment per orders. Plan discussed with: Patient My Orders Orders - GARFIELD COTECNP Procedure Category Date Status Time Hydrochlorothiazide PHA 04/05/24 In Process Tablet (Hydrochlorot 10:00 Albuterol Medneb PHA 04/05/24 In Process (Ventolin Medneb) 00:30 Ipratropium Medneb PHA 04/05/24 In Process (Atrovent Medneb) 00:30 Methylprednisolone PHA 04/05/24 In Process Sod Succ (Solu Medrol 10:00 Basic Metabolic Panel LAB 04/06/24 Verified 04:00 Admit ADMIT 04/05/24 Transmitted 00:16 Temazepam (Restoril) PHA 04/05/24 In Process 00:30 Ondansetron Hcl PHA 04/05/24 In Process (Zofran) 00:30 Complete Blood Count LAB 04/06/24 Verified 04:00 Cardiac DIET 04/05/24 Transmitted Diet-2gna,Lofat,Lochol Breakfast Condition: Fair COURTNEY 04/05/24 In Process 00:16 Acetaminophen Tablet PHA 04/05/24 In Process (Tylenol Tablet) 00:30 Bedrest With Bathroom [facility] 04/05/24 In Process Privileg 00:16 Nitroglycerin [facility] 04/05/24 In Process Sublingual (Ntrostat 00:30 Morphine Sulfate PHA 04/05/24 In Process Injection 00:30 Stat Ekg For Chest [facility] 04/05/24 In Process Pain 00:16 Notify Md Of Changes [facility] 04/05/24 In Process From Base 00:16 Senior Investment Manager For [facility] 04/05/24 In Process 24 Hours 00:16 Emergency Dysrhythmia [facility] 04/05/24 In Process Protocol 00:16 Rhythm Strips Once [facility] 04/05/24 In Process Every Shift 00:16 Oxygen By Nasal RT 04/05/24 Transmitted Cannula 00:16 Mrsa Screen ADAM 04/05/24 Logged 05:51 Date of Service: Apr 05, 2024 Billing Provider: GARFIELD COTE Common Visit Codes: [id number] INP/OBS CARE (HIGH) GARFIELD COTE Apr 05, 2024 06:22
--- NOTE | 2024-04-05 06:33 | ECG ---
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
[2024-04-05] MEDS: methylPREDNISolone SOD SUCC 40 MG/ML VL IV SCH (10:12)
[2024-04-05] MEDS: hydroCHLOROthiazide 25 MG TAB PO SCH (10:13)
[2024-04-05] MEDS ORDERED: MAGNESIUM SULFATE 1GM/100ML 100 ML IV STA (11:35)
[2024-04-05] MEDS: POTASSIUM CHL 20 Meq TABLET PO STA (12:53)
[2024-04-05 14:18] LABS: Anion Gap 6 (5-15); Basophils # (auto) 0 10 ^3/uL (0-0.2); Basophils % (auto) 0.3 % (0.0-2.0); Carbon Dioxide 29 mmol/L (20-31); Chloride 103 mmol/L (98-107); Eosinophils # (auto) 0 10 ^3/uL (0-0.8); Hematocrit 40.5 % (41.0-53.0); Hemoglobin 13.5 g/dL (13.5-17.5); Lymphocytes # (auto) 0.6 10 ^3/uL (0.4-5.4); Lymphocytes % (auto) 13.3 % (10.0-50.0); Mean Corpuscular Hemoglobin 28.6 pg (28.0-32.0); Mean Corpuscular Hgb Conc. 33.4 g/dL (32.0-36.0); Mean Corpuscular Volume 85.7 fL (80.0-100.0); Monocytes # (auto) 0.1 10 ^3/uL (0-1.3); Monocytes % (auto) 2.4 % (0.0-12.0); Neutrophils # (auto) 4.1 10 ^3/uL (1.6-8.6); Nucleated Red Blood Cells % 0.1 %; Platelet Count (auto) 308 10^3/uL (140-450); Potassium 3.5 mmol/L (3.5-5.1); Red Blood Cells 4.72 10^6/uL (4.5-5.90); Red Cell Distribution Width 15.1 % (11.8-14.3); Sodium 138 mmol/L (136-145); White Blood Cell 4.9 10^3/uL (4.4-10.8)
[2024-04-05 14:24] LABS: BUN/Creatinine Ratio 17.6 (10.0-20.0); Blood Urea Nitrogen 15 mg/dL (9-23); Glucose 196 mg/dL (74-106); Magnesium 2.1 mg/dL (1.6-2.6)
--- NOTE | 2024-04-05 14:46 | DVHPNRES ---
Progress Note Date Seen: Apr 05, 2024 Resident Creating Document: MAY SOLO RESIDENT Medical Necessity Reason Pt with a Central, PICC or Fol: No Subjective Review of Systems Patient is 58 years old male with past medical history of COPD on home oxygen 3 liter/minute, hypertension, hyperlipidemia, atrial fibrillation, history of kidney stone, history of NSTEMI type 2, history of nicotine dependence came with a complaint of worsening short of breath that started 1 day before. As per patient patient is on home oxygen [place] O2 3 liter/minutes for COPD but his shortness of breath has increased from 1 day before. Shortness of breaths exacerbated with movement or stress or anxiety. Patient also endorsed some dry cough. Patient denied any fever, chest pain, palpitation, constipation, acute joint pain or swelling, change in vision or in mental status. Initial lab workup revealed potassium 3.2, magnesium 1.5, troponin I negative, BNP negative, no leukocytosis. CXR no acute cardiopulmonary abnormality noted. PMH-COPD on home oxygen 3 liter/minute, hypertension, hyperlipidemia, atrial fibrillation, history of kidney stone, history of NSTEMI type 2, history of nicotine dependence PSH- appendicectomy Allergy- NKDA Personal History/ Social History- lives with family, active smoker, Patient was seen today at the bedside. Patient reports feeling a little bit better today Cardiovascular- deny acute chest pain or palpitation Respiratory- denies wheezing Gastrointestinal- denies any rectal bleeding, nausea or vomiting Musculoskeletal-denies acute joint swelling or tenderness or redness Neurological- denies acute dysarthria, dysphagia, change in vision Psychiatry- denies depression or SI or HI Skin- denies acute rash or purpura Patient was seen today for clinical evaluation. Labs and chart reviewed. Patient on [place] O2 3 liter/minute, complaining of shortness of breaths, on nebulization with albuterol and ipratropium bromide. Ordered levofloxacin 750 mg IV daily for acute bronchitis. Patient is a chronic smoker. Patient was counseled about the effect of smoking on health. Objective vital signs Vital Sign Date Time Temp Pulse Resp B/P (MAP) Pulse Ox O2 Delivery O2 Flow Rate FiO2 04/05/24 13:24 87 16 97 04/05/24 13:22 Nasal Cannula* 2 28 04/05/24 13:00 97.5 133/86 (102) 97.5 Total Intake and Output 1104/04/24 04/05/24 15:00 23:00 07:00 Intake Total 200 ml Balance 200 ml medications Current Medications Medications Dose Ordered Sig/Milvia Route Start Time Stop Time Status Last Admin Dose Admin Hydrochlorothiazide 25 mg DAILY PO 04/05/24 10:00 04/05/24 10:13 25 MG Albuterol 2.5 mg Q6HPRN PRN NEB 04/05/24 00:30 Ipratropium [place] 0.5 mg Q6HPRN PRN NEB 04/05/24 00:30 Methylprednisolone Sodium Succinate 40 mg BID IV 04/05/24 10:00 04/06/24 00:00 04/05/24 10:12 40 MG Temazepam 15 mg QHSP PRN PO 04/05/24 00:30 Ondansetron HCl 4 mg Q4HP PRN IV 04/05/24 00:30 Acetaminophen 650 mg Q6HP PRN PO 04/05/24 00:30 Nitroglycerin 0.4 mg Q5MINP PRN SL 04/05/24 00:30 Morphine Sulfate 2 mg Q30M PRN IV 04/05/24 00:30 Levofloxacin/ Dextrose 150 ml @ 100 mls/hr DAILY IV 04/06/24 10:00 UNV Examination General examination- on [place] O2, mildly dyspneic HEENT- PEERLA, no acute nasal discharge Cardiovascular- S1-S2 audible, rate and rhythm regular, no murmur Respiratory- diminished breath sound bilaterally, wheezing+ Gastrointestinal-nontender, bowel sound+. Nondistended Musculoskeletal-no acute joint swelling or tenderness or redness# Lower extremity-no leg edema Neurological- cranial nerves intact, no acute dysarthria or dysphagia Psychiatry- denies depression or SI or HI Skin- no acute rash or purpura laboratory and microbiology Laboratory Tests 04/05/24 13:47 Test 04/05/24 13:47 Range/Units Serum Glucose 196 H 74-106 mg/dL Microbiology Date/Time Source Procedure Growth Status 04/05/24 06:00 Nose MRSA Screen - Final Complete Problem List/Assessment/Plan Problem List/Assessment/Plan #Acute on chronic hypoxic respiratory failure due to acute exacerbation of COPD -patient on [place] O2 3 liter/minute, -continue nebulization as prescribed -continue methylprednisolone 40 IV b.i.d. -continue levofloxacin 750 mg IV daily #Acute exacerbation COPD likely due to acute bronchitis --patient on [place] O2 3 liter/minute, -continue nebulization as prescribed -continue methylprednisolone 40 IV b.i.d. -continue levofloxacin 750 mg IV daily # acute bronchitis ---patient on [place] O2 3 liter/minute, -continue nebulization as prescribed -continue levofloxacin 750 mg IV fredrick # hypokalemia, potassium 3.2 -replenished -monitor BMP # hypomagnesemia, magnesium 1.5 -replenished -monitor magnesium level and potassium level # history of atrial fibrillation # hypertension -continue hydrochlorothiazide p.o. daily # hyperlipidemia -monitor lipid profile every 6 months # nicotine dependence -patient was counseled about the effect of smoking on health Goals of care/advance care planning; FULL CODE; discussed with the patient PUD prophylaxis: Pantoprazole DVT prophylaxis: Patient ambulating Plan discussed with Dr. Durbin,,, nursing staff, patient Total time spent on patient evaluation, chart review, assessment and plan, discussion discussion >20 minutes Plan discussed with: Patient Plan discussed with: Patient, Spouse, Other (RN) My Orders My Orders Orders - MAY SOLO Procedure Category Date Status Time Urine Microscopic LAB 04/05/24 Logged 11:37 Drug Screen LAB 04/05/24 Logged 11:37 Levofloxacin 750mg PHA 04/06/24 Logged (Levaquin) 10:00 Albuterol Medneb PHA 04/05/24 Transmitted (Ventolin Medneb) 18:00 Ipratropium Medneb PHA 04/05/24 Transmitted (Atrovent Medneb) 18:00 Date of Service: Apr 05, 2024 Billing Provider: JANNY DURBIN MD Common Visit Codes: [id number] INP/OBS CARE(HIGH) Secondary Visit Codes: [id number] CARE PLAN 30 MINUTES MAY SOLO Apr 05, 2024 14:46 JANNY DURBIN MD Apr 05, 2024 22:15
[2024-04-05] MEDS: levoFLOXacin 500MG 100 ML IV SCH (14:56)
[2024-04-05 15:04] LABS: Amphetamine Screen, Urine Neg (NEGATIVE); Barbiturate Scree,Urine Neg (NEGATIVE); Benzodiazephine Screen, Urine Neg (NEGATIVE); Cannabinoid Screen, Urine Neg (NEGATIVE); Opiate Scree,Urine Neg (NEGATIVE); Phencyclidine Screen, Urine Neg (NEGATIVE)
[2024-04-05 15:05] LABS: Urine Bacteria None Seen /hpf (None Seen); Urine Blood Negative /uL (Negative); Urine Clarity Clear (Clear); Urine Color Yellow (Yellow); Urine Protein, UAD TRACE (Negative); Urine Specific Gravity 1.023 (1.001-1.035); Urine Urobilinogen Normal (Negative); Urine WBC None Seen /hpf (0 - 3); Urine pH 6.5 (5.0-9.0)
[2024-04-05 16:42] LABS: Cocaine Screen, Urine Neg (NEGATIVE)
[2024-04-05] MEDS: levoFLOXacin 250MG 50 ML IV SCH (17:09)
[2024-04-05] MEDS: ALBUTEROL SULF 2.5 MG/0.5ML(0.5%) NEB SOLN NEB SCH (18:10)
[2024-04-05] MEDS: IPRATROPIUM BROM 0.5 MG/2.5ML INH SOL NEB SCH (18:10)
[2024-04-05] MEDS: ACETAMINOPHEN 325 MG TAB PO PRN (20:36)
[2024-04-05] MEDS: TEMAZEPAM 15 MG CAP PO PRN (20:36)
[2024-04-06] VITALS (16 sets, daily range): BP systolic 106–127; BP diastolic 58–84; PULSE 61–114; RESP 16–20; TEMP 97.5–98.1; O2SAT 93–100
[2024-04-06] MEDS: PANTOPRAZOLE 40 MG TAB PO SCH (05:56)
[2024-04-06 07:04] LABS: Basophils # (auto) 0 10 ^3/uL (0-0.2); Basophils % (auto) 0.1 % (0.0-2.0); Eosinophils # (auto) 0 10 ^3/uL (0-0.8); Hematocrit 41.4 % (41.0-53.0); Hemoglobin 13.7 g/dL (13.5-17.5); Lymphocytes # (auto) 0.7 10 ^3/uL (0.4-5.4); Lymphocytes % (auto) 10.1 % (10.0-50.0); Mean Corpuscular Hemoglobin 28.3 pg (28.0-32.0); Mean Corpuscular Volume 85.6 fL (80.0-100.0); Monocytes # (auto) 0.3 10 ^3/uL (0-1.3); Neutrophils # (auto) 5.5 10 ^3/uL (1.6-8.6); Neutrophils % (auto) 84.8 % (37.0-80.0); Nucleated Red Blood Cells % 0.1 %; Platelet Count (auto) 311 10^3/uL (140-450); Red Blood Cells 4.84 10^6/uL (4.5-5.90); Red Cell Distribution Width 15.1 % (11.8-14.3); White Blood Cell 6.5 10^3/uL (4.4-10.8)
[2024-04-06 07:16] LABS: Chloride 104 mmol/L (98-107); Potassium 3.9 mmol/L (3.5-5.1); Sodium 139 mmol/L (136-145)
[2024-04-06 07:17] LABS: Anion Gap 6 (5-15); Carbon Dioxide 29 mmol/L (20-31)
[2024-04-06 07:22] LABS: BUN/Creatinine Ratio 22.9 (10.0-20.0); Blood Urea Nitrogen 19 mg/dL (9-23); Glucose 146 mg/dL (74-106)
[2024-04-06] MEDS ORDERED: levoFLOXacin 750MG 150 ML IV SCH (10:00)
--- NOTE | 2024-04-06 10:29 | DVHDSRES ---
Discharge Summary Date of Admission Resident Creating Document: MAY SOLO RESIDENT Apr 05, 2024 at 00:16 Date of Discharge: Apr 06, 2024 Admitting Diagnosis Shortness of breaths and cough Labs/Diagnostic Data: Laboratory Results Test 04/06/24 05:55 04/05/24 15:09 04/05/24 13:47 04/04/24 23:20 White Blood Count 6.5 10^3/uL (4.4-10.8) Red Blood Count 4.84 10^6/uL (4.5-5.90) Hemoglobin 13.7 g/dL (13.5-17.5) Hematocrit 41.4 % (41.0-53.0) Mean Corpuscular Volume 85.6 fL (80.0-100.0) Mean Corpuscular Hemoglobin 28.3 pg (28.0-32.0) Mean Corpuscular Hemoglobin Concent 33.0 g/dL (32.0-36.0) Red Cell Distribution Width 15.1 % (11.8-14.3) Platelet Count 311 10^3/uL (140-450) Mean Platelet Volume 7.3 fL (6.9-10.8) Neutrophils (%) (Auto) 84.8 % (37.0-80.0) Lymphocytes (%) (Auto) 10.1 % (10.0-50.0) Monocytes (%) (Auto) 5.0 % (0.0-12.0) Eosinophils (%) (Auto) 0.0 % (0.0-7.0) Basophils (%) (Auto) 0.1 % (0.0-2.0) Neutrophils # (Auto) 5.5 10 ^3/uL (1.6-8.6) Lymphocytes # (Auto) 0.7 10 ^3/uL (0.4-5.4) Monocytes # (Auto) 0.3 10 ^3/uL (0-1.3) Eosinophils # (Auto) 0 10 ^3/uL (0-0.8) Basophils # (Auto) 0 10 ^3/uL (0-0.2) Nucleated Red Blood Cells 0.1 % Sodium Level 139 mmol/L (136-145) Potassium Level 3.9 mmol/L (3.5-5.1) Chloride Level 104 mmol/L (98-107) Carbon Dioxide Level 29 mmol/L (20-31) Anion Gap 6 (5-15) Blood Urea Nitrogen 19 mg/dL (9-23) Creatinine 0.83 mg/dL (0.700-1.30) Glomerular Filtration Rate Calc 101 mL/min (>90) BUN/Creatinine Ratio 22.9 (10.0-20.0) Serum Glucose 146 mg/dL (74-106) Calcium Level 10.0 mg/dL (8.7-10.4) Urine Opiates Screen Neg (NEGATIVE) Urine Fentanyl Screen Neg (NEGATIVE) Urine Barbiturates Screen Neg (NEGATIVE) Urine Phencyclidine Screen Neg (NEGATIVE) Urine Amphetamines Screen Neg (NEGATIVE) Urine Benzodiazepines Screen Neg (NEGATIVE) Urine Cocaine Screen Neg (NEGATIVE) Urine Cannabinoids Screen Neg (NEGATIVE) Magnesium Level 2.1 mg/dL (1.6-2.6) D-Dimer, Quantitative 0.26 mg/L FEU (0.0-0.49) Total Bilirubin 0.6 mg/dL (0.2-1.0) Aspartate Amino Transferase (AST) 23 U/L (13-40) Alanine Aminotransferase (ALT) 26 U/L (7-40) Alkaline Phosphatase 61 U/L (46-116) Troponin I High Sensitivity 4 ng/L (</=54) B-Type Natriuretic Peptide 11.27 pg/mL (0-100) Total Protein 7.4 g/dL (5.7-8.2) Albumin 5.1 g/dL (3.2-4.8) Test 04/04/24 23:16 Urine Color Yellow (Yellow) Urine Clarity Clear (Clear) Urine pH 6.5 (5.0-9.0) Urine Specific [place] 1.023 (1.001-1.035) Urine Protein Trace (Negative) Urine Ketones Negative (Negative) Urine Blood Negative /uL (Negative) Urine Nitrite Negative (Negative) Urine Bilirubin Negative (Negative) Urine Urobilinogen Normal mg/dL (Negative) Urine Leukocyte Esterase Negative /uL (Negative) Urine RBC 2 /hpf (0 - 3) Urine WBC None seen /hpf (0 - 3) Urine Squamous Epithelial Cells None seen /hpf (<5) Urine Bacteria None seen /hpf (None Seen) Urine Glucose 3+ mg/dL (Normal) Other Laboratory Tests 04/06/24 05:55 Brief Hx & Hospital Course: Patient is 58 years old male with past medical history of COPD on home oxygen 3 liter/minute, hypertension, hyperlipidemia, atrial fibrillation, history of kidney stone, history of NSTEMI type 2, history of nicotine dependence came with a complaint of worsening short of breath that started 1 day before. As per patient patient is on home oxygen [place] O[place] 3 liter/minutes for COPD but his shortness of breath has increased from 1 day before. Shortness of breaths exacerbated with movement or stress or anxiety. Patient also endorsed some dry cough. Patient denied any fever, chest pain, palpitation, constipation, acute joint pain or swelling, change in vision or in mental status. Initial lab workup revealed potassium 3.2, magnesium 1.5, troponin I negative, BNP negative, no leukocytosis. CXR no acute cardiopulmonary abnormality noted. Patient was treated conservatively with nebulization with albuterol and ipratropium bromide. Patient was given levothyroxine 750 IV daily in the condition of COPD to cover Pseudomonas infection. Patient's hypomagnesemia, hypokalemia, hyponatremia resolved. Patient clinically improved. Patient is oxygen dependent, 3 liter/minute at home. Patient is being discharged home in hemodynamically stable condition. Patient was discharged with levofloxacin 750 mg p.o. daily for 7 days. Patient's med was sent to the pharmacy electronically. Patient was counseled about quitting smoking and the effect of smoking on health especially on COPD. Patient verbalized understanding. Advised to follow up with the PCP in 1 week and to follow up with the respiratory therapy aide in 1-2 weeks. PMH-COPD on home oxygen 3 liter/minute, hypertension, hyperlipidemia, atrial fibrillation, history of kidney stone, history of NSTEMI type 2, history of nicotine dependence PSH- appendicectomy Allergy- NKDA Personal History/ Social History- lives with family, active smoker, Patient was seen today at the bedside. Patient reports feeling better today Cardiovascular- deny acute chest pain or palpitation Respiratory- denies wheezing Gastrointestinal- denies any rectal bleeding, nausea or vomiting Musculoskeletal-denies acute joint swelling or tenderness or redness Neurological- denies acute dysarthria, dysphagia, change in vision Psychiatry- denies depression or SI or HI Skin- denies acute rash or purpura General examination- on [place] O2, mildly dyspneic HEENT- PEERLA, no acute nasal discharge Cardiovascular- S1-S2 audible, rate and rhythm regular, no murmur Respiratory- diminished breath sound bilaterally, wheezing+ Gastrointestinal-nontender, bowel sound+. Nondistended Musculoskeletal-no acute joint swelling or tenderness or redness# Lower extremity-no leg edema Neurological- cranial nerves intact, no acute dysarthria or dysphagia Psychiatry- denies depression or SI or HI Skin- no acute rash or purpura Operations or Procedures Signed PATIENT: YONATHAN VARNER ACCT: [id number] UNIT: [id number] : 1965 LOC: ER ROOM / BED: / AGE / SEX: 58 / M ADM STATUS: REG ER SERVICE 15 ORDERING PHYSICIAN: RADHA WEISS MD PROCEDURE(s): CXRP - CHEST PORTABLE REASON: SOB ORDER NUMBER(s): [id number], ACCESSION NUMBER(s): [id number] CHEST RADIOGRAPH Indication:SOB Technique: Single frontal view of the chest was obtained Comparison: XY CHEST PORTABLE on DOS: 03/17/24, XY CHEST PORTABLE on DOS: 01/23/24, XY CHEST XRAY 1 VIEW on DOS: 07/15/23 FINDINGS: Lines and Tubes: None Lungs: No focal consolidation. Pleura: No effusion. No pneumothorax. Cardiomediastinal contours: Unremarkable Bones: No acute osseous abnormality. IMPRESSION: No acute cardiopulmonary disease. ATED BY: MICK SETHI DO DICTATED DATE/TIME: 04/04/242348 SIGNED BY: MICK SETHI DO SIGNED DATE/TIME: 04/04/24 234 CC: Condition at Discharge: Stable Final Diagnosis/Problems List Acute on chronic hypoxic respiratory failure due to acute exacerbation of COPD Acute exacerbation of COPD likely due to acute bronchitis, on home oxygen 3 liter/minute as per patient Acute bronchitis Hypokalemia resolved Nicotine dependence, chronic smoker Hyponatremia resolved Hypomagnesemia resolved Discharge Disposition: Home Discharge Statement: "Patient was advised to return to the ER or call 911 if any headaches, dizziness, shortness of breath, chest pain, abdominal pain, bleeding, fevers, or worsening of medical condition. Patient was counseled about treatment plan, medications, possible side effects, patientverbalized understanding. All questions were answered to the best of my ability. This discharge took greater then 30 minutes in planning, reviewing documentation, counseling the patient, and discussing with other team members." ASSESSMENT ASSESSMENT Assessment MAY SOLO RESIDENT Apr 06, 2024 10:29
--- NOTE | 2024-04-06 19:02 | DVHPNRES ---
Progress Note Date Seen: Apr 06, 2024 Resident Creating Document: MAY SOLO RESIDENT Medical Necessity Reason Pt with a Central, PICC or Fol: No Subjective Review of Systems Patient is 58 years old male with past medical history of COPD on home oxygen 3 liter/minute, hypertension, hyperlipidemia, atrial fibrillation, history of kidney stone, history of NSTEMI type 2, history of nicotine dependence came with a complaint of worsening short of breath that started 1 day before. As per patient patient is on home oxygen [place] O2 3 liter/minutes for COPD but his shortness of breath has increased from 1 day before. Shortness of breaths exacerbated with movement or stress or anxiety. Patient also endorsed some dry cough. Patient denied any fever, chest pain, palpitation, constipation, acute joint pain or swelling, change in vision or in mental status. Initial lab workup revealed potassium 3.2, magnesium 1.5, troponin I negative, BNP negative, no leukocytosis. CXR no acute cardiopulmonary abnormality noted. PMH-COPD on home oxygen 3 liter/minute, hypertension, hyperlipidemia, atrial fibrillation, history of kidney stone, history of NSTEMI type 2, history of nicotine dependence PSH- appendicectomy Allergy- NKDA Personal History/ Social History- lives with family, active smoker, Patient was seen today at the bedside. Patient reports feeling a little bit better today Cardiovascular- deny acute chest pain or palpitation Respiratory- denies wheezing Gastrointestinal- denies any rectal bleeding, nausea or vomiting Musculoskeletal-denies acute joint swelling or tenderness or redness Neurological- denies acute dysarthria, dysphagia, change in vision Psychiatry- denies depression or SI or HI Skin- denies acute rash or purpura Patient was seen today for clinical evaluation. Labs and chart reviewed. Patient reports feeling better today. No acute fever or exacerbation of shortness of breath. Patient on [place] O2 3 liter/minute, complaining of shortness of breaths, on nebulization with albuterol and ipratropium bromide. Objective vital signs Vital Sign Date Time Temp Pulse Resp B/P (MAP) Pulse Ox O2 Delivery O2 Flow Rate FiO2 04/06/24 17:00 98.1 86 17 127/81 (96) 96 98.1 04/06/24 10:10 Nasal Cannula 3.0 04/06/24 10:10 32 Total Intake and Output 04/05/24 04/05/24 04/06/24 15:00 23:00 07:00 Intake Total 1150 ml 300 ml Output Total 800 ml 250 ml Balance 350 ml 50 ml medications Current Medications Medications Dose Ordered Sig/Milvia Route Start Time Stop Time Status Last Admin Dose Admin Hydrochlorothiazide 25 mg DAILY PO 04/05/24 10:00 04/06/24 10:15 25 MG Temazepam 15 mg QHSP PRN PO 04/05/24 00:30 04/05/24 20:36 15 MG Ondansetron HCl 4 mg Q4HP PRN IV 04/05/24 00:30 Acetaminophen 650 mg Q6HP PRN PO 04/05/24 00:30 04/05/24 20:36 650 MG Nitroglycerin 0.4 mg Q5MINP PRN SL 04/05/24 00:30 Morphine Sulfate 2 mg Q30M PRN IV 04/05/24 00:30 Levofloxacin/ Dextrose 100 ml @ 100 mls/hr DAILY IV 04/05/24 15:00 04/06/24 10:16 100 MLS/HR Levofloxacin 50 ml @ 50 mls/hr DAILY@1100 IV 04/05/24 16:00 04/05/24 17:09 50 MLS/HR Pantoprazole Sodium 40 mg DAILY@0600 PO 04/06/24 06:00 04/06/24 05:56 40 MG Albuterol 2.5 mg Q6HPRN PRN NEB 04/06/24 10:45 Ipratropium [place] 0.5 mg Q6HPRN PRN NEB 04/06/24 10:45 Examination General examination- on [place] O2, mildly dyspneic HEENT- PEERLA, no acute nasal discharge Cardiovascular- S1-S2 audible, rate and rhythm regular, no murmur Respiratory- diminished breath sound bilaterally, wheezing+ Gastrointestinal-nontender, bowel sound+. Nondistended Musculoskeletal-no acute joint swelling or tenderness or redness# Lower extremity-no leg edema Neurological- cranial nerves intact, no acute dysarthria or dysphagia Psychiatry- denies depression or SI or HI Skin- no acute rash or purpura laboratory and microbiology Laboratory Tests 04/06/24 05:55 Test 04/06/24 05:55 Range/Units Serum Glucose 146 H 74-106 mg/dL Microbiology Date/Time Source Procedure Growth Status 04/05/24 06:00 Nose MRSA Screen - Final Complete Problem List/Assessment/Plan Problem List/Assessment/Plan #Acute on chronic hypoxic respiratory failure due to acute exacerbation of COPD -patient on [place] O2 3 liter/minute, -continue nebulization as prescribed -continue methylprednisolone 40 IV b.i.d. -discontinued levofloxacin 750 mg IV daily -ordered ceftriaxone 1 g IV daily #Acute exacerbation COPD likely due to acute bronchitis --patient on [place] O2 3 liter/minute, -continue nebulization as prescribed -continue methylprednisolone 40 IV b.i.d. --discontinued levofloxacin 750 mg IV daily -ordered ceftriaxone 1 g IV daily # acute bronchitis ---patient on [place] O2 3 liter/minute, -continue nebulization as prescribed --discontinued levofloxacin 750 mg IV daily -ordered ceftriaxone 1 g IV daily # hypokalemia, improved -replenished -monitor BMP # hypomagnesemia, magnesium 1.5 -replenished -monitor magnesium level and potassium level # history of atrial fibrillation # hypertension -continue hydrochlorothiazide p.o. daily # hyperlipidemia -monitor lipid profile every 6 months # nicotine dependence -patient was counseled about the effect of smoking on health Goals of care/advance care planning; FULL CODE; discussed with the patient PUD prophylaxis: Pantoprazole DVT prophylaxis: Patient ambulating Plan discussed with Dr. Durbin,,, nursing staff, patient Total time spent on patient evaluation, chart review, assessment and plan, discussion discussion >20 minutes Plan discussed with: Patient Plan discussed with: Patient, Other (RN) My Orders My Orders Orders - MAY SOLO Procedure Category Date Status Time Albuterol Medneb PHA 04/06/24 In Process (Ventolin Medneb) 10:45 Ipratropium Medneb PHA 04/06/24 In Process (Atrovent Medneb) 10:45 Date of Service: Apr 06, 2024 Billing Provider: JANNY DURBIN MD Common Visit Codes: [id number] INP/OBS CARE(HIGH) MAY SOLO Apr 06, 2024 19:02 JANNY DURBIN MD Apr 06, 2024 21:39
[2024-04-06] MEDS: ONDANSETRON HCL 4 MG/2 ML VIAL IV PRN (20:07)
[2024-04-06] MEDS: IPRATROPIUM BROM 0.5 MG/2.5ML INH SOL NEB PRN (20:45)
[2024-04-06] MEDS: ALBUTEROL SULF 2.5 MG/0.5ML(0.5%) NEB SOLN NEB PRN (20:45)
[2024-04-07] VITALS (8 sets, daily range): BP systolic 104–130; BP diastolic 67–95; PULSE 65–84; RESP 16–20; TEMP 36.4; O2SAT 92–98
[2024-04-07 05:09] LABS: Basophils # (auto) 0 10 ^3/uL (0-0.2); Basophils % (auto) 0.4 % (0.0-2.0); Eosinophils # (auto) 0 10 ^3/uL (0-0.8); Eosinophils % (auto) 0.2 % (0.0-7.0); Hematocrit 42.2 % (41.0-53.0); Lymphocytes # (auto) 1.9 10 ^3/uL (0.4-5.4); Lymphocytes % (auto) 27.4 % (10.0-50.0); Mean Corpuscular Hemoglobin 28.6 pg (28.0-32.0); Mean Corpuscular Hgb Conc. 33.1 g/dL (32.0-36.0); Mean Corpuscular Volume 86.6 fL (80.0-100.0); Monocytes # (auto) 0.6 10 ^3/uL (0-1.3); Neutrophils # (auto) 4.3 10 ^3/uL (1.6-8.6); Nucleated Red Blood Cells % 0.1 %; Platelet Count (auto) 313 10^3/uL (140-450); Red Blood Cells 4.88 10^6/uL (4.5-5.90); Red Cell Distribution Width 14.9 % (11.8-14.3); White Blood Cell 6.9 10^3/uL (4.4-10.8)
[2024-04-07 05:15] LABS: Chloride 103 mmol/L (98-107); Potassium 3.5 mmol/L (3.5-5.1); Sodium 139 mmol/L (136-145)
[2024-04-07 05:16] LABS: Anion Gap 6 (5-15); Carbon Dioxide 30 mmol/L (20-31)
[2024-04-07 05:17] LABS: Calcium 9.8 mg/dL (8.7-10.4)
[2024-04-07 05:21] LABS: BUN/Creatinine Ratio 28.3 (10.0-20.0); Blood Urea Nitrogen 28 mg/dL (9-23); Glucose 99 mg/dL (74-106)
[2024-04-07] MEDS: cefTRIAXone 1GM/50ML D5W 50 ML IV SCH (09:01)
--- NOTE | 2024-04-07 11:09 | DVHDSRES ---
Discharge Summary Date of Admission Resident Creating Document: MAY SOLO Apr 05, 2024 at 00:16 Date of Discharge: Apr 07, 2024 Admitting Diagnosis Short of breath with dry cough Labs/Diagnostic Data: Laboratory Results Test 04/07/24 04:47 04/05/24 15:09 04/05/24 13:47 04/04/24 23:20 White Blood Count 6.9 10^3/uL (4.4-10.8) Red Blood Count 4.88 10^6/uL (4.5-5.90) Hemoglobin 14.0 g/dL (13.5-17.5) Hematocrit 42.2 % (41.0-53.0) Mean Corpuscular Volume 86.6 fL (80.0-100.0) Mean Corpuscular Hemoglobin 28.6 pg (28.0-32.0) Mean Corpuscular Hemoglobin Concent 33.1 g/dL (32.0-36.0) Red Cell Distribution Width 14.9 % (11.8-14.3) Platelet Count 313 10^3/uL (140-450) Mean Platelet Volume 6.9 fL (6.9-10.8) Neutrophils (%) (Auto) 63.0 % (37.0-80.0) Lymphocytes (%) (Auto) 27.4 % (10.0-50.0) Monocytes (%) (Auto) 9.0 % (0.0-12.0) Eosinophils (%) (Auto) 0.2 % (0.0-7.0) Basophils (%) (Auto) 0.4 % (0.0-2.0) Neutrophils # (Auto) 4.3 10 ^3/uL (1.6-8.6) Lymphocytes # (Auto) 1.9 10 ^3/uL (0.4-5.4) Monocytes # (Auto) 0.6 10 ^3/uL (0-1.3) Eosinophils # (Auto) 0 10 ^3/uL (0-0.8) Basophils # (Auto) 0 10 ^3/uL (0-0.2) Nucleated Red Blood Cells 0.1 % Sodium Level 139 mmol/L (136-145) Potassium Level 3.5 mmol/L (3.5-5.1) Chloride Level 103 mmol/L (98-107) Carbon Dioxide Level 30 mmol/L (20-31) Anion Gap 6 (5-15) Blood Urea Nitrogen 28 mg/dL (9-23) Creatinine 0.99 mg/dL (0.700-1.30) Glomerular Filtration Rate Calc 88 mL/min (>90) BUN/Creatinine Ratio 28.3 (10.0-20.0) Serum Glucose 99 mg/dL (74-106) Calcium Level 9.8 mg/dL (8.7-10.4) Urine Opiates Screen Neg (NEGATIVE) Urine Fentanyl Screen Neg (NEGATIVE) Urine Barbiturates Screen Neg (NEGATIVE) Urine Phencyclidine Screen Neg (NEGATIVE) Urine Amphetamines Screen Neg (NEGATIVE) Urine Benzodiazepines Screen Neg (NEGATIVE) Urine Cocaine Screen Neg (NEGATIVE) Urine Cannabinoids Screen Neg (NEGATIVE) Magnesium Level 2.1 mg/dL (1.6-2.6) D-Dimer, Quantitative 0.26 mg/L FEU (0.0-0.49) Total Bilirubin 0.6 mg/dL (0.2-1.0) Aspartate Amino Transferase (AST) 23 U/L (13-40) Alanine Aminotransferase (ALT) 26 U/L (7-40) Alkaline Phosphatase 61 U/L (46-116) Troponin I High Sensitivity 4 ng/L (</=54) B-Type Natriuretic Peptide 11.27 pg/mL (0-100) Total Protein 7.4 g/dL (5.7-8.2) Albumin 5.1 g/dL (3.2-4.8) Test 04/04/24 23:16 Urine Color Yellow (Yellow) Urine Clarity Clear (Clear) Urine pH 6.5 (5.0-9.0) Urine Specific [place] 1.023 (1.001-1.035) Urine Protein Trace (Negative) Urine Ketones Negative (Negative) Urine Blood Negative /uL (Negative) Urine Nitrite Negative (Negative) Urine Bilirubin Negative (Negative) Urine Urobilinogen Normal mg/dL (Negative) Urine Leukocyte Esterase Negative /uL (Negative) Urine RBC 2 /hpf (0 - 3) Urine WBC None seen /hpf (0 - 3) Urine Squamous Epithelial Cells None seen /hpf (<5) Urine Bacteria None seen /hpf (None Seen) Urine Glucose 3+ mg/dL (Normal) Other Laboratory Tests 04/07/24 04:47 Brief Hx & Hospital Course: Patient is 58 years old male with past medical history of COPD on home oxygen 3 liter/minute, hypertension, hyperlipidemia, atrial fibrillation, history of kidney stone, history of NSTEMI type 2, history of nicotine dependence came with a complaint of worsening short of breath that started 1 day before. As per patient patient is on home oxygen [place] O[place] 3 liter/minutes for COPD but his shortness of breath has increased from 1 day before. Shortness of breaths exacerbated with movement or stress or anxiety. Patient also endorsed some dry cough. Patient denied any fever, chest pain, palpitation, constipation, acute joint pain or swelling, change in vision or in mental status. Initial lab workup revealed potassium 3.2, magnesium 1.5, troponin I negative, BNP negative, no leukocytosis. CXR no acute cardiopulmonary abnormality noted. Patient was treated with IV antibiotic and methylprednisolone along with nebulization with albuterol and ipratropium bromide. Patient improved clinically and symptomatically. Patient was discharged home with levofloxacin times mg p.o. daily for 5 days, methylprednisolone 4 mg p.o . Patient was advised to follow up with the primary care physician in 1 week. Patient noted hemodynamically stable on discharge. PMH-COPD on home oxygen 3 liter/minute, hypertension, hyperlipidemia, atrial fibrillation, history of kidney stone, history of NSTEMI type 2, history of nicotine dependence PSH- appendicectomy Allergy- NKDA Personal History/ Social History- lives with family, active smoker, Patient was seen today at the bedside. Patient reports feeling much better today, patient reported he is at his baseline with a aspiration Cardiovascular- deny acute chest pain or palpitation Respiratory- denies wheezing Gastrointestinal- denies any rectal bleeding, nausea or vomiting Musculoskeletal-denies acute joint swelling or tenderness or redness Neurological- denies acute dysarthria, dysphagia, change in vision Psychiatry- denies depression or SI or HI Skin- denies acute rash or purpura General examination- on [place] O2, mildly dyspneic HEENT- [place]ER[place], no acute nasal discharge Cardiovascular- S1-S2 audible, rate and rhythm regular, no murmur Respiratory- diminished breath sound bilaterally, no wheezing Gastrointestinal-nontender, bowel sound+. Nondistended Musculoskeletal-no acute joint swelling or tenderness or redness# Lower extremity-no leg edema Neurological- cranial nerves intact, no acute dysarthria or dysphagia Psychiatry- denies depression or SI or HI Skin- no acute rash or purpura Operations or Procedures Signed PATIENT: YONATHAN VARNER ACCT: [id number] UNIT: [id number] : 1965 LOC: ER ROOM / BED: / AGE / SEX: 58 / M ADM STATUS: REG ER SERVICE [id number] ORDERING PHYSICIAN: RADHA WEISS MD PROCEDURE(s): CXRP - CHEST PORTABLE REASON: SOB ORDER NUMBER(s): [id number], ACCESSION NUMBER(s): [id number] CHEST RADIOGRAPH Indication:SOB Technique: Single frontal view of the chest was obtained Comparison: XY CHEST PORTABLE on DOS: 03/17/24, XY CHEST PORTABLE on DOS: 01/23/24, XY CHEST XRAY 1 VIEW on DOS: 07/15/23 FINDINGS: Lines and Tubes: None Lungs: No focal consolidation. Pleura: No effusion. No pneumothorax. Cardiomediastinal contours: Unremarkable Bones: No acute osseous abnormality. IMPRESSION: No acute cardiopulmonary disease. ATED BY: MICK SETHI DO DICTATED DATE/TIME: 04/04/242348 SIGNED BY: MICK SETHI DO SIGNED DATE/TIME: 04/04/242348 CC: Condition at Discharge: Stable Final Diagnosis/Problems List Acute on chronic hypoxic respiratory failure due to acute exacerbation ofCOPD Acute exacerbation of COPD likely due to acute bronchitis, on home oxygen3 liter/minute as per patient Acute bronchitis Hypokalemia resolved Nicotine dependence, chronic smoker Hyponatremia resolved Hypomagnesemia resolved Discharge Disposition: Home Discharge Instruct/Medications Diet: Cardiac 2g Na,low cholest Activity: No Restrictions, As Tolerated Follow Up/Referral: Please follow up with the PCP in 1 week Medications: Levofloxacin 750 mg p.o. daily for 5 days Methylprednisolone 4 mg p.o. as prescribed Discharge Statement: "Patient was advised to return to the ER or call 911 if any headaches, dizziness, shortness of breath, chest pain, abdominal pain, bleeding, fevers, or worsening of medical condition. Patient was counseled about treatment plan, medications, possible side effects, patientverbalized understanding. All questions were answered to the best of my ability. This discharge took greater then 30 minutes in planning, reviewing documentation, counseling the patient, and discussing with other team members." ASSESSMENT ASSESSMENT Assessment Acute on chronic hypoxic respiratory failure due to acute exacerbation ofCOPDAcute exacerbation of COPD likely due to acute bronchitis, on home oxygen3 liter/minute as per patientAcute bronchitisHypokalemia resolvedNicotine dependence, chronic smokerHyponatremia resolvedHypomagnesemia resolved MAY SOLO RESIDENT Apr 07, 2024 11:09
[2024-04-07] MEDS: AZITHROMYCIN 500MG/ 250ML 250 ML IV SCH (11:11)
[2024-04-07] MEDS ORDERED: LEVO750T40 PO (12:42)
[2024-04-07] MEDS ORDERED: METH4PAK PO (12:42)
== END 2024-04-07 15:30 | disposition home or self-care (01) | DRG 189 ==
LOC: EDBD 23:02 → ER 23:02 → TELE 04-05 00:16 → TELE-WESTW 04-05 00:24
PROVIDERS: ADMIT Internal Medicine; ATTEND Internal Medicine
DX: J96.21 Acute and chronic respiratory failure with hypoxia (principal); J44.1 Chronic obstructive pulmonary disease with (acute) exacerbation; E87.1 Hypo-osmolality and hyponatremia; J20.9 Acute bronchitis, unspecified; E87.6 Hypokalemia; E83.42 Hypomagnesemia; I10 Essential (primary) hypertension; E78.5 Hyperlipidemia, unspecified; F17.210 Nicotine dependence, cigarettes, uncomplicated; I48.91 Unspecified atrial fibrillation; Z79.899 Other long term (current) drug therapy
CPT/HCPCS: 36415; 71045; 80048; 80053; 80307; 81001; 83735; 83880; 84484; 85025; 85379; 87081; 93005; 94640; 99291; G0378; J1956; J2405

== ENCOUNTER → 2024-04-25 | Outpatient (CLI) | payer OTHER, MEDICAID ==
[~2024-04-25] MED LIST changes: +LEVO750T40 PO; +METH4PAK PO
[2024-04-25 11:35] LABS: Urine Bacteria None Seen /hpf (None Seen); Urine WBC None Seen /hpf (0 - 3)
[2024-04-25 11:40] LABS: Triglycerides 175 mg/dL (< 150)
[2024-04-25 11:41] LABS: Cholesterol 196 mg/dL (< 200); LDL Cholesterol 119 mg/dL (< 100)
[2024-04-25 11:42] LABS: HDL Cholesterol 52 mg/dL (40-59)
[2024-04-25 12:33] LABS: Urine Blood Negative /uL (Negative); Urine Clarity Clear (Clear); Urine Color Colorless (Yellow); Urine Protein, UAD Negative (Negative); Urine Specific Gravity 1.004 (1.001-1.035); Urine Urobilinogen Normal (Negative); Urine pH 6.5 (5.0-9.0)
== END | disposition home or self-care (01) ==
LOC: LAB 09:46
PROVIDERS: ATTEND Internal Medicine
DX: Z00.01 Encounter for general adult medical examination with abnormal findings (principal); I25.10 Atherosclerotic heart disease of native coronary artery without angina pectoris; R35.1 Nocturia; R06.00 Dyspnea, unspecified
CPT/HCPCS: 36415; 80061; 81001; 83970; 84153

== ENCOUNTER 2024-06-07 06:05 | Inpatient (IN) | payer OTHER, MEDICAID ==
[~2024-06-07] VITALS: Ht 167.6 cm; Wt 72.5 kg
[2024-06-07] VITALS (9 sets, daily range): BP systolic 109–128; BP diastolic 65–80; PULSE 78–120; RESP 15–26; O2SAT 92–100
[~2024-06-07 06:05] MED LIST changes: +DOXY-286 PO; +FAMO20TA10 PO; +PRED10TA PO
--- NOTE | 2024-06-07 06:19 | ED.PDOC ---
SOB-HPI HPI Comments 58Y M with PMHx COPD, asthma, Afib, and HTN presents to ED via EMS for chief complaint SOB for unknown amount of time. Per EMS, pt's friend arrived to pt's home this morning and he was already experiencing the SOB so she called 911. Upon EMS arrival, pt already had breathing treatment in progress with SpO2 in the 40s. EMS placed CPAP machine and achieved SpO2 of 92%. Upon ED arrival, pt is awake and alert but is nonverbal. Pt occasionally nods his head. Unknown if pt uses oxygen at home. Unknown meds and allergies. Chief Complaint: Shortness of Breath Time Seen by MD: 06:05 Primary Care Provider: UNKNOWN NAME Reviewed notes: Nurses Notes, Cosmetic Counselor Notes, Medications, Allergies Information Source: Patient, Emergency Med Personnel Mode of Arrival: EMS Brought in by: EMS Severity: Severe Timing: Other (unknown) Duration: Since onset Context: At Rest PE Risk Factors: None History of: Asthma, COPD Prehospital treatment: C-Pap Modifying Factors: Nothing Associated Signs and Symptoms: None Past Medical History PAST MEDICAL HISTORY: AFIB, Asthma, COPD, HTN Surgical History: Appendectomy Family History Family History: Family hx of Cancer Social History Smoker: Cigarettes Alcohol: Denies ETOH Use Drugs: Denies Drug Use Lives In: Home Constitutional: denies: chills, diaphoresis, fatigue, fever, malaise, sweats, weakness, others EENTM: denies: blurred vision, double vision, ear bleeding, ear discharge, ear drainage, ear pain, ear ringing, eye pain, eye redness, hearing loss, mouth pain, mouth swelling, nasal discharge, nose bleeding, nose congestion, nose pain, photophobia, tearing, throat pain, throat swelling, voice changes, others Respiratory: reports: shortness of breath; denies: cough, hemoptysis, orthopnea, SOB at rest, SOB with excertion, stridor, wheezing, others Cardiovascular: denies: chest pain, dizzy spells, diaphoresis, Dyspnea on exertion, edema, irregular heart beat, left arm pain, lightheadedness, palpitations, PND, syncope, others Gastrointestinal: denies: abdomen distended, abdominal pain, blood streaked bowels, constipated, diarrhea, dysphagia, difficulty swallowing, hematemesis, melena, nausea, poor appetite, poor fluid intake, rectal bleeding, rectal pain, vomiting, others Genitourinary: denies: burning, dysuria, flank pain, frequency, hematuria, incontinence, penile discharge, penile sore, pain, testicle pain, testicle swelling, urgency, others Neurological: denies: dizziness, fainting, headache, left sided numbness, left sided weakness, numbness, paresthesia, pre-existing deficit, right sided numbness, right sided weakness, seizure, speech problems, tingling, tremors, weakness, others Musculoskeletal: denies: back pain, gout, joint pain, joint swelling, muscle pain, muscle stiffness, neck pain, others Integumetry: denies: bruises, change in color, change in hair/nails, dryness, laceration, lesions, lumps, rash, wounds, others Allergic/Immunocompromised: denies: Difficulty Healing, Frequent Infections, Hives, Itching, others Hematologic/Lymphatic: denies: anemia, blood clots, easy bleeding, easy bruising, swollen glands, others Endocrine: denies: excessive hunger, excessive sweating, excessive thirst, excessive urination, flushing, intolerance to cold, intolerance to heat, unexplained weight gain, unexplained weight loss, others Psychiatric: denies: anxiety, bipolar disorder, depression, hopeless, panic disorder, schizophrenia, sleepless, suicidal, others All Other Systems: Reviewed and Negative Physical Exam General Appearance: Moderate Distress, Other (nonverbal) HEENT: Normal ENT Inspection, Pharynx Normal, TMs Normal Neck: Full Range of Motion, Non-Tender, Normal, Normal Inspection Respiratory: Chest Non-Tender, Other (distant breath sounds bilaterally) Cardiovascular: No Edema, No JVD, No Murmur, No Gallop, Tachycardia Breast Exam: Deferred Gastrointestinal: No Organomegaly, Non Tender, No Pulsatile Mass, Normal Bowel Sounds, Soft Genitalia: Deferred Pelvic: Deferred Rectal: Deferred Extremities: No calf tenderness, Normal capillary refill, Normal inspection, Normal range of motion, Non-tender, No pedal edema Musculoskeletal : Apperance: Normal Neurologic: Alert, elevator constructor II-XII nml as Tested, No Motor Deficits, Normal Affect, Normal Mood, No Sensory Deficits Cerebellar Function: Normal Reflexes: Normal Skin: Dry, Normal Color, Warm Lymphatic: No Adenopathy EKG EKG : Pulse Rate (adult): 113 [place]: LAD Cardiac Rhythm: NSR Block: RBBB Hypertrophy: RVH ST: Nonsp Comments repeat ekg- st 107, no st changes, no dynamic changes Was a procedure done? Was a procedure done?: No Differential Dx Differential Diagnosis: Anxiety, Asthma, Bronchitis, Cardiogenic Shock, CHF, COPD, Hyperventilation, Myocardial infarction, Panic Attack, Pneumonia, Pneumothorax, Pulmonary Embolism, Respiratory Distress X-Ray, Labs, Meds, VS Vital Signs Date Time Temp Pulse Resp B/P (MAP) Pulse Ox O2 Delivery O2 Flow Rate FiO2 06/07/24 08:00 100 06/07/24 07:47 107 06/07/24 06:28 113 06/07/24 06:24 119 06/07/24 06:13 112 28 185/100 (128) 92 06/07/24 06:11 120 26 100 Bi-Pap+ 100 100 06/07/24 06:11 97.7 120 26 177/118 (137) 100 97.7 Lab Test 06/07/24 08:42 06/07/24 08:31 06/07/24 08:21 06/07/24 08:19 Range/Units Blood Gas Specimen Type Arterial Blood Gas Sample Site Left radial Blood Gas Patient Temperature 37.0 Arterial Blood Date Drawn [id number] Arterial Blood pH 7.382 7.350-7.450 Arterial Blood Partial Pressure CO2 52.3 H 35.0-48.0 mmHg Arterial Blood Partial Pressure O2 71.8 L 83.0-108.0 mmHg Arterial Blood HCO3 30.4 H 21.0-28.0 mmol/L Arterial Blood Oxygen Saturation 93.6 L 94.0-98.0 % Arterial Blood Base Excess 4.1 H -2.0-3.0 mmol/L Arterial Blood Oxyhemoglobin 92.0 L 94.0-98.0 % Arterial Blood Carboxyhemoglobin 1.2 0.5-1.5 % Arterial Blood Methemoglobin 0.5 0.0-1.5 % Godfrey Test Modified Blood Gas Total Hemoglobin 14.30 13.5-17.5 g/dL Blood Gas Modality Mask - bipap Blood Gas Spontaneous Rate 20 FiO2 % 35.0 Blood Gas Spontaneous Tidal Volume 825 Troponin I High Sensitivity 22 </=54 ng/L Influenza Type A Antigen Pending Influenza Type B Antigen Pending SARS-CoV-2 Antigen (Rapid) Pending Urine Color Pending Urine Clarity Pending Urine pH Pending Urine Specific [place] Pending Urine Protein Pending Urine Ketones Pending Urine Blood Pending Urine Nitrite Pending Urine Bilirubin Pending Urine Urobilinogen Pending Urine Leukocyte Esterase Pending Urine RBC Pending Urine WBC Pending Urine Squamous Epithelial Cells Pending Urine Bacteria Pending Urine Glucose Pending Test 06/07/24 07:30 06/07/24 06:36 Range/Units White Blood Count 13.6 #H 4.4-10.8 10^3/uL Red Blood Count 4.85 4.5-5.90 10^6/uL Hemoglobin 13.8 13.5-17.5 g/dL Hematocrit 42.6 # 41.0-53.0 % Mean Corpuscular Volume 87.8 80.0-100.0 fL Mean Corpuscular Hemoglobin 28.4 28.0-32.0 pg Mean Corpuscular Hemoglobin Concent 32.4 32.0-36.0 g/dL Red Cell Distribution Width 15.8 H 11.8-14.3 % Platelet Count 309 140-450 10^3/uL Mean Platelet Volume 7.4 6.9-10.8 fL Neutrophils (%) (Auto) 70.8 37.0-80.0 % Lymphocytes (%) (Auto) 17.3 10.0-50.0 % Monocytes (%) (Auto) 9.2 0.0-12.0 % Eosinophils (%) (Auto) 2.2 0.0-7.0 % Basophils (%) (Auto) 0.5 0.0-2.0 % Neutrophils # (Auto) 9.6 H 1.6-8.6 10 ^3/uL Lymphocytes # (Auto) 2.4 0.4-5.4 10 ^3/uL Monocytes # (Auto) 1.3 0-1.3 10 ^3/uL Eosinophils # (Auto) 0.3 0-0.8 10 ^3/uL Basophils # (Auto) 0.1 0-0.2 10 ^3/uL Nucleated Red Blood Cells 0.0 % Sodium Level 142 136-145 mmol/L Potassium Level 3.4 L 3.5-5.1 mmol/L Chloride Level 105 98-107 mmol/L Carbon Dioxide Level 28 20-31 mmol/L Anion Gap 9 5-15 Blood Urea Nitrogen 22 9-23 mg/dL Creatinine 1.19 0.700-1.30 mg/dL Glomerular Filtration Rate Calc 70 >90 mL/min BUN/Creatinine Ratio 18.5 10.0-20.0 Serum Glucose 143 H 74-106 mg/dL Calcium Level 10.0 8.7-10.4 mg/dL Troponin I High Sensitivity 19 </=54 ng/L Blood Gas Specimen Type Arterial Blood Gas Sample Site Right radial Blood Gas Patient Temperature 37.0 Arterial Blood Date Drawn [id number] Arterial Blood pH 7.286 L 7.350-7.450 Arterial Blood Partial Pressure CO2 65.1 *H 35.0-48.0 mmHg Arterial Blood Partial Pressure O2 476.1 *H 83.0-108.0 mmHg Arterial Blood HCO3 30.3 H 21.0-28.0 mmol/L Arterial Blood Oxygen Saturation 99.8 H 94.0-98.0 % Arterial Blood Base Excess 1.8 -2.0-3.0 mmol/L Arterial Blood Oxyhemoglobin 98.3 H 94.0-98.0 % Arterial Blood Carboxyhemoglobin 0.8 0.5-1.5 % Arterial Blood Methemoglobin 0.7 0.0-1.5 % Godfrey Test Modified Blood Gas Total Hemoglobin 14.70 13.5-17.5 g/dL Blood Gas Modality Mask - bipap Blood Gas Spontaneous Rate 28 FiO2 % 100.0 Blood Gas Spontaneous Tidal Volume 718 Blood Gas EPAP 5 Blood Gas IPAP 12 Blood Gas Critical Value Read Back Yes Blood Gas Notified Whom ana Abbott md Blood Gas Notified Time [id number] Blood Gas Notified By Digital Service Engineer jose de jesus Current Medications Medications (Trade) Dose Ordered Sig/Milvia Route Start Time Stop Time Status Last Admin Albuterol (Ventolin Medneb) 20 mg ONCE ONCE NEB 06/07/24 06:15 06/07/24 06:16 DC 06/07/24 07:04 Methylprednisolone Sodium Succinate (Solu Medrol) 125 mg ONCE ONCE IV 06/07/24 06:15 06/07/24 06:16 DC 06/07/24 06:23 Magnesium Sulfate/ Dextrose 100 ml @ 100 mls/hr Q1H IV 06/07/24 06:15 06/07/24 08:14 DC 06/07/24 08:02 Acetaminophen (Tylenol Tablet Or Capsule) 1,000 mg ONCE ONCE PO 06/07/24 07:45 06/07/24 07:46 DC 06/07/24 08:[address] [address] Ph: [phone] DIAGNOSTIC IMAGING Diagnostic Imaging Report : [id number] Signed PATIENT: YONATHAN VARNER ACCT: [id number] UNIT: [id number] : 1965 LOC: ER ROOM / BED: / AGE / SEX: 58 / M ADM STATUS: REG ER SERVICE 0610 ORDERING PHYSICIAN: IMELDA ABBOTT MD PROCEDURE(s): CXRP - CHEST PORTABLE REASON: sob ORDER NUMBER(s): [id number], ACCESSION NUMBER(s): [id number] CHEST RADIOGRAPH Indication: sob Technique: Single frontal view of the chest was obtained Comparison: XY CHEST PORTABLE on DOS: 06/02/24 FINDINGS: Lines and Tubes: None Lungs: No focal consolidation. Pleura: No effusion. No pneumothorax. Cardiomediastinal contours: Unremarkable Bones: No acute osseous abnormality. IMPRESSION: 1. No acute cardiopulmonary disease. ATED BY: FLOR SAM MD DICTATED DATE/TIME: 06/07/24652 SIGNED BY: FLOR SAM MD SIGNED DATE/TIME: 06/07/24652 CC: Time of 1ST Reevaluation: 06:35 Reevaluation 1ST: Unchanged (cardiac rhythm- st) Time of 2ND Reevaluation: 09:14 Reevaluation 2ND: Improved (cardiac rhythm- st) Time of 3RD Reevaluation: 09:17 Reevaluation 3RD: Improved (cardiac rhythm- st) Patient Education/Counseling: Diagnosis, Treatment Family Education/Counseling: No Family Present Additional Information I reviewed the following notes from patient's past medical encounters: [facility] discharges 06/04/2024, 04/07/2024, 03/20/2024, 01/25/2024, 07/16/2023, 06/23/2023 The following tests were ordered, and results were reviewed by me: EKGx3, CBC, BMP, Troponin x3, COVID19 Ag, Rapid Influenza A&B, ABG, CXR Additional Information was gathered from interviewing the following independent historians: EMS I reviewed and agreed with the following test results read by other providers: CXR I discussed treatment and results with medical personnel and hospitalist. Departure 1 Departure Time of Disposition: 09:16 Impression: Primary Impression: Respiratory failure Qualified Codes: J96.01 - Acute respiratory failure with hypoxia; J96.02 - Acute respiratory failure with hypercapnia Additional Impression: COPD exacerbation Disposition: ADMITTED INPATIENT Admit to: [facility] Condition: Serious Discharged With: Self Critical Care Note Critical Care Time?: Yes (55 min-critical care time only) Critical care comment: Due to concerns for patients condition deteriorating, the care required my highest level of attention and readiness to intervene. I assessed the patient, reviewed the medical records, ordered the appropriate tests and treatments, then reassessed for results and responsiveness. I communicated with medical personnel and consultants and formulated a plan of care. Total critical care time excludes any procedures Stability Stability form required: No Heart Score Heart Score: Heart Score Response (Comments) Value History N/A 0 EKG N/A 0 Age N/A 0 Risk Factors N/A 0 Troponin N/A 0 Total 0 I personally scribed for IMELDA ABBOTT MD ([email or web address]) on 06/07/24 at 06:19. Electronically submitted by Yonathan Moody ([email or web address]). I personally scribed for IMELDA ABBOTT MD ([email or web address]) on 06/07/24 at 06:24. Electronically submitted by Jennifer Choudhary ([email or web address]). I personally scribed for IMELDA ABBOTT MD ([email or web address]) on 06/07/24 at 07:03. Electronically submitted by Jennifer Choudhary ([email or web address]). IMELDA ABBOTT MD Jun 07, 2024 06:19
[2024-06-07] MEDS: methylPREDNISolone SOD SUCC 125 MG/2 ML VL IV ONE (06:23)
[2024-06-07] MEDS: MAGNESIUM SULFATE 1GM/100ML 100 ML IV SCH (06:30)
--- NOTE | 2024-06-07 06:31 | ECG ---
[facility] Test Date: 2024-06-07 Test Time: 06:28:12 Pat Name: YONATHAN VARNER Department: ED Room: 0284T Gender: M Payable Representative: ALYSON : 1965 Requested By: IMELDA MIRZA Order Number: [id number] Reading MD: Mingo Fox Measurements Intervals [place] Rate: 113 P: 72 AR: 162 QRS: -23 QRSD: 101 T: 65 QT: 330 QTc: 453 Interpretive Statements Sinus tachycardia Right atrial enlargement Incomplete RBBB and LAFB Consider right ventricular hypertrophy Electronically Signed On 06-08-2024 10:22:25 PST by Mingo Fox Please click the below link to view image of tracing.
[2024-06-07 06:45] LABS: Base Excess 1.8 mmol/L (-2.0-3.0)
--- NOTE | 2024-06-07 06:55 | [facility]H ---
CHEST RADIOGRAPH Indication: sob Technique: Single frontal view of the chest was obtained Comparison: XY CHEST PORTABLE on DOS: 06/02/24 FINDINGS: Lines and Tubes: None Lungs: No focal consolidation. Pleura: No effusion. No pneumothorax. Cardiomediastinal contours: Unremarkable Bones: No acute osseous abnormality. IMPRESSION: 1. No acute cardiopulmonary disease.
[2024-06-07] MEDS: ALBUTEROL SULF 2.5 MG/0.5ML(0.5%) NEB SOLN NEB ONE (07:04)
[2024-06-07 07:44] LABS: Basophils # (auto) 0.1 10 ^3/uL (0-0.2); Basophils % (auto) 0.5 % (0.0-2.0); Eosinophils # (auto) 0.3 10 ^3/uL (0-0.8); Eosinophils % (auto) 2.2 % (0.0-7.0); Hematocrit 42.6 % (41.0-53.0); Hemoglobin 13.8 g/dL (13.5-17.5); Lymphocytes # (auto) 2.4 10 ^3/uL (0.4-5.4); Lymphocytes % (auto) 17.3 % (10.0-50.0); Mean Corpuscular Hemoglobin 28.4 pg (28.0-32.0); Mean Corpuscular Hgb Conc. 32.4 g/dL (32.0-36.0); Mean Corpuscular Volume 87.8 fL (80.0-100.0); Monocytes # (auto) 1.3 10 ^3/uL (0-1.3); Monocytes % (auto) 9.2 % (0.0-12.0); Neutrophils # (auto) 9.6 10 ^3/uL (1.6-8.6); Neutrophils % (auto) 70.8 % (37.0-80.0); Platelet Count (auto) 309 10^3/uL (140-450); Red Blood Cells 4.85 10^6/uL (4.5-5.90); Red Cell Distribution Width 15.8 % (11.8-14.3); White Blood Cell 13.6 10^3/uL (4.4-10.8)
[2024-06-07 07:58] LABS: Chloride 105 mmol/L (98-107)
[2024-06-07 07:59] LABS: Sodium 142 mmol/L (136-145)
[2024-06-07 08:00] LABS: Anion Gap 9 (5-15); Carbon Dioxide 28 mmol/L (20-31)
[2024-06-07] MEDS: ACETAMINOPHEN 500 MG TAB or CAP PO ONE (08:00)
[2024-06-07 08:04] LABS: Potassium 3.4 mmol/L (3.5-5.1)
[2024-06-07 08:05] LABS: BUN/Creatinine Ratio 18.5 (10.0-20.0); Blood Urea Nitrogen 22 mg/dL (9-23)
[2024-06-07 08:09] LABS: Glucose 143 mg/dL (74-106)
[2024-06-07 08:43] LABS: Urine Bacteria None Seen /hpf (None Seen)
[2024-06-07 08:46] LABS: Base Excess 4.1 mmol/L (-2.0-3.0)
[2024-06-07 09:13] LABS: Urine Blood Negative /uL (Negative); Urine Clarity Clear (Clear); Urine Color Light-Yellow (Yellow); Urine Hyaline Cast FEW /lpf (0 - 2); Urine Protein, UAD Negative (Negative); Urine Squamous Epithelial Cell FEW /hpf (<5); Urine Urobilinogen Normal (Negative); Urine WBC 1 /hpf (0 - 3); Urine pH 6.5 (5.0-9.0)
[2024-06-07 09:41] LABS: Rapid Influenza A Negative (Negative); Rapid Influenza B Negative (Negative)
[2024-06-07 09:43] LABS: COVID19 ANTIGEN SOFIA FIA NEGATIVE (NEGATIVE)
[2024-06-07] MEDS ORDERED: ACETAMINOPHEN 325 MG TAB PO PRN (12:45)
[2024-06-07] MEDS ORDERED: MORPHINE SULFATE INJ 2 MG/ml SYRG IV PRN (12:45)
[2024-06-07] MEDS ORDERED: NITROGLYCERIN 0.4 MG SL TAB SL PRN (12:45)
[2024-06-07] MEDS ORDERED: ONDANSETRON HCL 4 MG/2 ML VIAL IV PRN (12:45)
--- NOTE | 2024-06-07 12:58 | DVHHP2 ---
History of Present Illness Reason for Visit: Shortness of breath History of Present Illness Alon Eid is a 58-year-old male with past medical history of hypertension, COPD, asthma, AFib, and appendectomy who presents to the ED today for shortness of breaths. Patient was found down by friend at home called EMS. When EMS was on scene noted to have saturation 40% on room air, patient was then brought into ED for evaluation on a CPAP. Patient reports that he uses 3 L of oxygen via nasal cannula at home. Patient reports that he had showered and had gone to sleep then woke up in the ED. patient reports that he smokes 2 packs of cigarettes per day, does not drink, and does not use illicit drugs. Patient denies any chest pain, lightheadedness, dizziness, nausea, vomiting, abdominal pain, diarrhea, and recent trauma or injury. Cardiovascular: AFIB, HTN Pulmonary: Asthma, COPD Past Surgical History: Appendectomy Family History: Cancer, Other (Dad) Smoke: 2 packs per day ALCOHOL: none Drugs: None Lives: with Family Domestic Violence: Neg Review of Systems Constitutional: No: Fever, Chills, Sweats, Weakness, Malaise, Other Eyes: No: Pain, Vision change, Conjunctivae inflammation, Eyelid inflammation, Other, Redness ENT: No: Ear pain, Ear discharge, Nose pain, Nose discharge, Nose congestion, Mouth pain, Mouth swelling, Throat pain, Throat swelling, Other Respiratory: Shortness of breath; No: Cough, Dry, SOB with excertion, Wheezing, Hemoptysis, Pleuritic Pain, Sputum, Wheezing, Other Cardiovascular: No: Chest Pain, Palpitations, Orthopnea, Paroxysmal Noc. Dyspnea, Edema, Lt Headedness, Other Gastrointestinal: No: Nausea, Vomiting, Abdominal Pain, Diarrhea, Constipation, Melena, Hematochezia, Other Genitourinary: No Dysuria, No Frequency, No Incontinence, No Hematuria, No Retention, No Other Musculoskeletal: No: other, neck pain, shoulder pain, arm pain, back pain, hand pain, leg pain, foot pain Skin: No: Rash, Lesions, Jaundice, Bruising, Other Neurological: No: Weakness, Numbness, Incoordination, Change in speech, Confusion, Seizures, Other Allergies: Coded Allergies: NO KNOWN ALLERGIES (Unverified , 12/20/22) Exam Vital Signs Vital Signs Date Time Temp Pulse Resp B/P (MAP) Pulse Ox O2 Delivery O2 Flow Rate FiO2 06/07/24 11:52 79 15 109/65 93 3.0 32 06/07/24 08:27 Facial BiPAP Mask 06/07/24 07:45 98.7 98.7 General Appearance: Alert, Oriented X3, Cooperative, mild distress HEENT: Atraumatic, PERRLA, EOMI, Mucous membr. moist/pink Respiratory: Normal air movement Cardiovascular: Normal S1, Normal S2, No murmurs Abdominal: Normal bowel sounds, Soft, No tenderness, No hepatospenomegaly, No masses Extremities: No clubbing, No cyanosis, No edema, Normal pulses, No tenderness/swelling Skin: No rashes, No breakdown, No significant lesion Neuro: Normal speech, Strength at 5/5 X4 ext, Normal tone, Sensation intact Psych/Mental Status: Mental status NL, Mood NL Labs/Xrays Labs Test 06/07/24 08:42 06/07/24 08:31 06/07/24 08:21 06/07/24 08:19 Range/Units Blood Gas Specimen Type Arterial Blood Gas Sample Site Left radial Blood Gas Patient Temperature 37.0 Arterial Blood Date Drawn [id number] Arterial Blood pH 7.382 7.350-7.450 Arterial Blood Partial Pressure CO2 52.3 H 35.0-48.0 mmHg Arterial Blood Partial Pressure O2 71.8 L 83.0-108.0 mmHg Arterial Blood HCO3 30.4 H 21.0-28.0 mmol/L Arterial Blood Oxygen Saturation 93.6 L 94.0-98.0 % Arterial Blood Base Excess 4.1 H -2.0-3.0 mmol/L Arterial Blood Oxyhemoglobin 92.0 L 94.0-98.0 % Arterial Blood Carboxyhemoglobin 1.2 0.5-1.5 % Arterial Blood Methemoglobin 0.5 0.0-1.5 % Godfrey Test Modified Blood Gas Total Hemoglobin 14.30 13.5-17.5 g/dL Blood Gas Modality Mask - bipap Blood Gas Spontaneous Rate 20 FiO2 % 35.0 Blood Gas Spontaneous Tidal Volume 825 Troponin I High Sensitivity 22 </=54 ng/L Influenza Type A Antigen Negative Negative Influenza Type B Antigen Negative Negative SARS-CoV-2 Antigen (Rapid) Negative NEGATIVE Urine Color Light-yellow Yellow Urine Clarity Clear Clear Urine pH 6.5 5.0-9.0 Urine Specific [place] 1.020 1.001-1.035 Urine Protein Negative Negative Urine Ketones Negative Negative Urine Blood Negative Negative /uL Urine Nitrite Negative Negative Urine Bilirubin Negative Negative Urine Urobilinogen Normal Negative mg/dL Urine Leukocyte Esterase Negative Negative /uL Urine RBC 2 0 - 3 /hpf Urine WBC 1 0 - 3 /hpf Urine Squamous Epithelial Cells Few <5 /hpf Urine Bacteria None seen None Seen /hpf Urine Hyaline Casts Few 0 - 2 /lpf Urine Glucose Normal Normal mg/dL Test 06/07/24 07:30 06/07/24 06:36 Range/Units White Blood Count 13.6 #H 4.4-10.8 10^3/uL Red Blood Count 4.85 4.5-5.90 10^6/uL Hemoglobin 13.8 13.5-17.5 g/dL Hematocrit 42.6 # 41.0-53.0 % Mean Corpuscular Volume 87.8 80.0-100.0 fL Mean Corpuscular Hemoglobin 28.4 28.0-32.0 pg Mean Corpuscular Hemoglobin Concent 32.4 32.0-36.0 g/dL Red Cell Distribution Width 15.8 H 11.8-14.3 % Platelet Count 309 140-450 10^3/uL Mean Platelet Volume 7.4 6.9-10.8 fL Neutrophils (%) (Auto) 70.8 37.0-80.0 % Lymphocytes (%) (Auto) 17.3 10.0-50.0 % Monocytes (%) (Auto) 9.2 0.0-12.0 % Eosinophils (%) (Auto) 2.2 0.0-7.0 % Basophils (%) (Auto) 0.5 0.0-2.0 % Neutrophils # (Auto) 9.6 H 1.6-8.6 10 ^3/uL Lymphocytes # (Auto) 2.4 0.4-5.4 10 ^3/uL Monocytes # (Auto) 1.3 0-1.3 10 ^3/uL Eosinophils # (Auto) 0.3 0-0.8 10 ^3/uL Basophils # (Auto) 0.1 0-0.2 10 ^3/uL Nucleated Red Blood Cells 0.0 % Sodium Level 142 136-145 mmol/L Potassium Level 3.4 L 3.5-5.1 mmol/L Chloride Level 105 98-107 mmol/L Carbon Dioxide Level 28 20-31 mmol/L Anion Gap 9 5-15 Blood Urea Nitrogen 22 9-23 mg/dL Creatinine 1.19 0.700-1.30 mg/dL Glomerular Filtration Rate Calc 70 >90 mL/min BUN/Creatinine Ratio 18.5 10.0-20.0 Serum Glucose 143 H 74-106 mg/dL Calcium Level 10.0 8.7-10.4 mg/dL Blood Gas EPAP 5 Blood Gas IPAP 12 Blood Gas Critical Value Read Back Yes Blood Gas Notified Whom ana Abbott md Blood Gas Notified Time [id number] Blood Gas Notified By Drying Machine Tender jose de jesus CHEST RADIOGRAPH Indication: sob Technique: Single frontal view of the chest was obtained Comparison: XY CHEST PORTABLE on DOS: 06/02/24 FINDINGS: Lines and Tubes: None Lungs: No focal consolidation. Pleura: No effusion. No pneumothorax. Cardiomediastinal contours: Unremarkable Bones: No acute osseous abnormality. IMPRESSION: 1. No acute cardiopulmonary disease. Assessment/Plan Assessment/Plan Assessment/Plan: Acute on chronic asthma exacerbation Leukocytosis likely suspecting PNA UA EKG Pain management ABG Chest x-ray noted Mag IV steroids Respiratory treatments Troponin negative x2 negative COVID Negative influenza Echo done on 03/18/2024 EF 50-55% IV antibiotics Hypokalemia Replete lytes Hyperglycemia Hemoglobin A1c ISS and Accu-Cheks Chronic Hypertension continue home meds AFib without rapid rate Tele monitor FEN/PPX diet ivf DVT ppx lovenox PUD ppx famotidine Discussed plan of care with patient and nurse Home medications reconciled Admit to telemetry Plan discussed with: Patient My Orders Orders - GAURANG DRAKE [employer] MANAGER Procedure Category Date Status Time Methylprednisolone PHA 06/07/24 Logged Sod Succ (Solu Medrol 14:00 Famotidine Injection PHA 06/08/24 Logged (Pepcid Injection) 10:00 Albuterol Medneb PHA 06/07/24 Logged (Ventolin Medneb) 18:00 Albuterol Medneb PHA 06/07/24 Transmitted (Ventolin Medneb) 12:45 Ipratropium Medneb PHA 06/07/24 Transmitted (Atrovent Medneb) 18:00 Ipratropium Medneb PHA 06/07/24 Transmitted (Atrovent Medneb) 12:45 Ceftriaxone Ivpb PHA 06/08/24 Transmitted Rocephin 09:00 Ceftriaxone Ivpb PHA 06/07/24 Transmitted Rocephin 12:45 Chest Xray 1 View XY 06/08/24 Logged 04:00 Admit ADMIT 06/07/24 Transmitted 12:44 Allergies COURTNEY 06/07/24 In Process 12:44 Code Status CODE 06/07/24 Transmitted 12:44 Hydrocodone-Acet PHA 06/07/24 Transmitted 5/325mg Tab ([place] 12:45 Ondansetron Hcl PHA 06/07/24 Transmitted (Zofran) 12:45 Complete Blood Count LAB 06/08/24 Verified 04:00 Comprehensive LAB 06/08/24 Verified Metabolic Panel 04:00 Cardiac DIET 06/07/24 Transmitted Diet-2gna,Lofat,Lochol Lunch Acetaminophen Tablet PHA 06/07/24 Transmitted (Tylenol Tablet) 12:45 Nitroglycerin PHA 06/07/24 Transmitted Sublingual (Ntrostat 12:45 Morphine Sulfate PHA 06/07/24 Transmitted Injection 12:45 Stat Ekg For Chest COURTNEY 06/07/24 In Process Pain 12:44 Notify Md Of Changes COURTNEY 06/07/24 In Process From Base 12:44 Salesforce Consultant For COURTNEY 06/07/24 In Process 24 Hours 12:44 Emergency Dysrhythmia COURTNEY 06/07/24 In Process Protocol 12:44 Rhythm Strips Once COURTNEY 06/07/24 In Process Every Shift 12:44 Oxygen By Nasal RT 06/07/24 Transmitted Cannula 12:44 Potassium Er Tablet PHA 06/07/24 Transmitted (Klor-Con Tablet) 13:00 Date of Service: Jun 07, 2024 Billing Provider: GAURANG DRAKE Common Visit Codes: [id number] INP/OBS CARE (HIGH) GAURANG DRAKE Jun 07, 2024 12:58
[2024-06-07] MEDS ORDERED: DEXTROSE (50%) 50ML SYRG IV PRN (13:00)
[2024-06-07] MEDS: cefTRIAXone 1GM/50ML D5W 50 ML IV ONE (13:56)
[2024-06-07] MEDS: POTASSIUM CHL 20 Meq TABLET PO ONE (13:57)
[2024-06-07] MEDS: methylPREDNISolone SOD SUCC 40 MG/ML VL IV SCH (15:00)
[2024-06-07] MEDS: IPRATROPIUM BROM 0.5 MG/2.5ML INH SOL NEB PRN (16:44)
[2024-06-07] MEDS: ALBUTEROL SULF 2.5 MG/0.5ML(0.5%) NEB SOLN NEB PRN (16:44)
[2024-06-07] MEDS: InsuLIN REG 1unit/0.01ml Soln (100units/ml) SC SCH (17:00)
[2024-06-07] MEDS: ACCU-CHEK COMFORT CURVE STRIP VI SCH (17:23)
[2024-06-07] MEDS: IPRATROPIUM BROM 0.5 MG/2.5ML INH SOL NEB SCH (18:27)
[2024-06-07] MEDS: ALBUTEROL SULF 2.5 MG/0.5ML(0.5%) NEB SOLN NEB SCH (18:27)
--- NOTE | 2024-06-07 18:48 | ECG ---
[facility] Test Date: 2024-06-07 Test Time: 07:46:18 Pat Name: YONATHAN VARNER Department: ED Room: 0284T Gender: M Quahogger: MARK : 1965 Requested By: IMELDA MIRZA Order Number: [id number] Reading MD: Mingo Fox Measurements Intervals [place] Rate: 107 P: 73 MS: 149 QRS: -78 QRSD: 96 T: 77 QT: 330 QTc: 441 Interpretive Statements Sinus tachycardia LAD, consider left anterior fascicular block Electronically Signed On 06-08-2024 10:22:37 PST by Mingo Fox Please click the below link to view image of tracing.
[2024-06-07] MEDS: HYDROcodone-ACET 5/325MG TAB PO PRN (22:54)
[2024-06-08] VITALS (17 sets, daily range): BP systolic 113–142; BP diastolic 66–84; PULSE 64–107; RESP 16–22; TEMP 97.7–98.2; O2SAT 91–99
--- NOTE | 2024-06-08 06:29 | DVH ---
CHEST RADIOGRAPH Indication: sob Technique: Single frontal view of the chest was obtained Comparison: XY CHEST PORTABLE on DOS: 06/07/24 FINDINGS: Lines and Tubes: None Lungs: Interval development of right basilar opacities. Pleura: No effusion. No pneumothorax. Cardiomediastinal contours: Unremarkable Bones: No acute osseous abnormality. IMPRESSION: 1. Right basilar opacities which may reflect atelectasis or infiltrate.
[2024-06-08 08:49] LABS: Basophils # (auto) 0 10 ^3/uL (0-0.2); Basophils % (auto) 0.1 % (0.0-2.0); Eosinophils # (auto) 0 10 ^3/uL (0-0.8); Hematocrit 40.6 % (41.0-53.0); Hemoglobin 13.1 g/dL (13.5-17.5); Lymphocytes % (auto) 8.2 % (10.0-50.0); Mean Corpuscular Hgb Conc. 32.2 g/dL (32.0-36.0); Monocytes # (auto) 0.5 10 ^3/uL (0-1.3); Monocytes % (auto) 4.2 % (0.0-12.0); Neutrophils # (auto) 10.6 10 ^3/uL (1.6-8.6); Neutrophils % (auto) 87.5 % (37.0-80.0); Platelet Count (auto) 316 10^3/uL (140-450); Red Blood Cells 4.67 10^6/uL (4.5-5.90); Red Cell Distribution Width 15.5 % (11.8-14.3); White Blood Cell 12.1 10^3/uL (4.4-10.8)
[2024-06-08 09:16] LABS: Albumin 4.1 g/dL (3.2-4.8); Alkaline Phosphatase 49 U/L (46-116); Anion Gap 4 (5-15); Aspartate Aminotransferase 14 U/L (13-40); BUN/Creatinine Ratio 27.8 (10.0-20.0); Blood Urea Nitrogen 22 mg/dL (9-23); Chloride 103 mmol/L (98-107); Potassium 4.1 mmol/L (3.5-5.1); Sodium 139 mmol/L (136-145)
[2024-06-08 09:17] LABS: Bilirubin, Total 0.5 mg/dL (0.2-1.0); Total Protein 6.1 g/dL (5.7-8.2)
[2024-06-08] MEDS: cefTRIAXone 1GM/50ML D5W 50 ML IV SCH (09:19)
[2024-06-08] MEDS: FAMOTIDINE (10MG/ML) 2ML VL IV SCH (09:20)
[2024-06-08 09:21] LABS: Carbon Dioxide 32 mmol/L (20-31); Glucose 147 mg/dL (74-106)
[2024-06-08 09:22] LABS: Alanine Aminotransferase < 9 U/L (7-40)
[2024-06-08] MEDS: ENOXAPARIN SOD 30 MG/0.3 ML SYRINGE SC SCH (09:25)
--- NOTE | 2024-06-08 17:03 | DVHPN2 ---
Subjective Patient reports that his shortness of breath has improved. Reviewed: Care Plan, H&P, Labs, Medications Changes from previous H/P or p: No Changes General: Per HPI Eyes: No Pain, No Vision change, No Conjunctivae inflammation, No Eyelid inflammation, No Other, No Redness ENT: No Ear pain, No Ear discharge, No Nose pain, No Nose discharge, No Nose congestion, No Mouth pain, No Mouth swelling, No Throat pain, No Throat swelling, No Other Cardiovascular: No Chest Pain, No Palpitations, No Orthopnea, No Paroxysmal Noc. Dyspnea, No Edema, No Lt Headedness, No Other Respiratory: No Cough, No Dry; Shortness of breath; No SOB with excertion, No Wheezing, No Hemoptysis, No Pleuritic Pain, No Sputum, No Other Gastrointestinal: No Nausea, No Vomiting, No Abdominal Pain, No Diarrhea, No Constipation, No Melena, No Hematochezia, No Other Genitourinary: No Dysuria, No Frequency, No Incontinence, No Hematuria, No Retention, No Other Musculoskeletal: No other, No neck pain, No shoulder pain, No arm pain, No back pain, No hand pain, No leg pain, No foot pain Skin: No Rash, No Lesions, No Jaundice, No Bruising, No Other Objective Vitals Vital Signs Date Time Temp Pulse Resp B/P (MAP) Pulse Ox O2 Delivery O2 Flow Rate FiO2 06/08/24 13:00 97.9 107 22 142/84 (103) 93 97.9 06/08/24 08:00 Nasal Cannula* 3 32 Intake/Output Intake and Output 06/08/24 07:00 Intake Total 490 ml Balance 490 ml Intake Oral 240 ml IV Total 250 ml # Voids 1 # Bowel Movements 3 General Appearance: Alert, Oriented X3, Cooperative, mild distress HEENT: Atraumatic, PERRLA Lungs: Clear to auscultation, Normal air movement Cardiovascular: Normal S1, Normal S2 Genitourinary: No Apparent Abnormalities Musculoskeletal: Normal sensory function, Normal motor function Extremities: No clubbing, No cyanosis, No edema Psych/Mental Status: Mental status NL, Mood NL Medications Current Medications Medications Dose Ordered Sig/Milvia Route Start Time Stop Time Status Last Admin Dose Admin Methylprednisolone Sodium Succinate 40 mg Q8HR IV 06/07/24 14:00 06/08/24 15:05 40 MG Famotidine 20 mg DAILY IV 06/08/24 10:00 06/08/24 09:20 20 MG Albuterol 2.5 mg Q6HWA NEB 06/07/24 18:00 06/08/24 11:47 2.5 MG Albuterol 2.5 mg Q4HPRN PRN NEB 06/07/24 12:45 06/07/24 23:12 2.5 MG Ipratropium [place] 0.5 mg Q6HWA NEB 06/07/24 18:00 06/08/24 11:47 0.5 MG Ipratropium [place] 0.5 mg Q4HPRN PRN NEB 06/07/24 12:45 06/07/24 23:12 0.5 MG Ceftriaxone Sodium 50 ml @ 100 mls/hr DAILY@09 IV 06/08/24 09:00 06/08/24 09:19 100 MLS/HR Acetaminophen/ Hydrocodone Bitart 1 tab Q4HP PRN PO 06/07/24 12:45 06/08/24 13:14 1 TAB Ondansetron HCl 4 mg Q4HP PRN IV 06/07/24 12:45 Acetaminophen 650 mg Q6HP PRN PO 06/07/24 12:45 Nitroglycerin 0.4 mg Q5MINP PRN SL 06/07/24 12:45 Morphine Sulfate 2 mg Q30M PRN IV 06/07/24 12:45 Enoxaparin Sodium 30 mg DAILY SC 06/08/24 10:00 Dextrose 50 ml UD PRN IV 06/07/24 13:00 Laboratory Results Laboratory Tests 06/08/24 08:27 Chemistry Test 06/08/24 08:27 Albumin 4.1 g/dL (3.2-4.8) Calcium Level 10.0 mg/dL (8.7-10.4) Total Protein 6.1 g/dL (5.7-8.2) LFT Test 06/08/24 08:27 Alanine Aminotransferase (ALT) < 9 U/L (7-40) Alkaline Phosphatase 49 U/L (46-116) Aspartate Amino Transferase (AST) 14 U/L (13-40) Total Bilirubin 0.5 mg/dL (0.2-1.0) Urinalysis Test 06/07/24 08:19 Urine Color Light-yellow (Yellow) Urine Clarity Clear (Clear) Urine pH 6.5 (5.0-9.0) Urine Specific [place] 1.020 (1.001-1.035) Urine Protein Negative (Negative) Urine Ketones Negative (Negative) Urine Blood Negative /uL (Negative) Urine Nitrite Negative (Negative) Urine Bilirubin Negative (Negative) Urine Urobilinogen Normal mg/dL (Negative) Urine Leukocyte Esterase Negative /uL (Negative) Urine RBC 2 /hpf (0 - 3) Urine WBC 1 /hpf (0 - 3) Urine Squamous Epithelial Cells Few /hpf (<5) Urine Bacteria None seen /hpf (None Seen) Urine Hyaline Casts Few /lpf (0 - 2) Urine Glucose Normal mg/dL (Normal) Labs and/or images reviewed: Labs reviewed by me, Image(s) reviewed by me Assessment/Plan Assessment/Plan Impression: -acute hypoxic respiratory failure -community-acquired pneumonia, Gram-positive/Gram-negative etiology -COPD with exacerbation -asthma -nicotine dependence -primary hypertension Plan: -antibiotic therapy: Azithromycin, Rocephin -bronchodilators -IV diuresis -O2 supplementation to keep saturation greater than 92% -continue Solu-Medrol, decreased to 40 mg daily -smoking cessation -repeat labs, chest x-ray in a.m. Total time spent with patient discussing and formulating plan of care: 35 minutes. This medical document was created using an electronic medical record system with [employer] dictation system. Although this document has been carefully reviewed, there may still be some phonetic and typographical errors. These areas are purely typographical due to imperfections of the software programs, and do not reflect any compromise in the patient's medical care. Plan discussed with: Patient, Other (RN) My Orders Orders - ESSENCE FONG NP Procedure Category Date Status Time Methylprednisolone PHA 06/09/24 Logged Sod Succ (Solu Medrol 10:00 Complete Blood Count LAB 06/09/24 Verified 04:00 Basic Metabolic Panel LAB 06/09/24 Verified 04:00 Date of Service: Jun 08, 2024 Billing Provider: ESSENCE FONG NP Common Visit Codes: [id number] CARE 30-74 MIN ESSENCE FONG NP Jun 08, 2024 17:03
[2024-06-08] MEDS: AZITHROMYCIN 250 MG TAB PO ONE (17:50)
[2024-06-09] VITALS (10 sets, daily range): BP systolic 120–136; BP diastolic 75–82; PULSE 65–94; RESP 18–21; TEMP 97.6–98.4; O2SAT 91–100
--- NOTE | 2024-06-09 05:36 | DVH ---
CHEST RADIOGRAPH Indication: pna Technique: Single frontal view of the chest was obtained Comparison: XY CHEST XRAY 1 VIEW on DOS: 06/08/24 FINDINGS: Lines and Tubes: None Lungs: There is right basilar subsegmental atelectasis. The left lung is clear. Pleura: No effusion. No pneumothorax. Cardiomediastinal contours: Unremarkable Bones: No acute osseous abnormality. IMPRESSION: 1. Right basilar subsegmental atelectasis.
[2024-06-09 08:15] LABS: Basophils # (auto) 0 10 ^3/uL (0-0.2); Basophils % (auto) 0.1 % (0.0-2.0); Eosinophils # (auto) 0 10 ^3/uL (0-0.8); Hematocrit 38.2 % (41.0-53.0); Hemoglobin 12.5 g/dL (13.5-17.5); Lymphocytes # (auto) 1.6 10 ^3/uL (0.4-5.4); Mean Corpuscular Hemoglobin 28.4 pg (28.0-32.0); Mean Corpuscular Hgb Conc. 32.7 g/dL (32.0-36.0); Mean Corpuscular Volume 86.9 fL (80.0-100.0); Monocytes # (auto) 1.1 10 ^3/uL (0-1.3); Monocytes % (auto) 8.7 % (0.0-12.0); Neutrophils # (auto) 9.7 10 ^3/uL (1.6-8.6); Neutrophils % (auto) 78.2 % (37.0-80.0); Platelet Count (auto) 312 10^3/uL (140-450); White Blood Cell 12.3 10^3/uL (4.4-10.8)
[2024-06-09 08:21] LABS: Calcium 9.7 mg/dL (8.7-10.4); Chloride 103 mmol/L (98-107); Potassium 3.9 mmol/L (3.5-5.1); Sodium 138 mmol/L (136-145)
[2024-06-09 08:22] LABS: Anion Gap 6 (5-15); Carbon Dioxide 29 mmol/L (20-31)
[2024-06-09 08:28] LABS: BUN/Creatinine Ratio 31.6 (10.0-20.0); Glucose 105 mg/dL (74-106)
[2024-06-09 08:29] LABS: Blood Urea Nitrogen 25 mg/dL (9-23)
[2024-06-09] MEDS: AZITHROMYCIN 250 MG TAB PO SCH (09:06)
[2024-06-09] MEDS: methylPREDNISolone SOD SUCC 40 MG/ML VL IV SCH (09:08)
[2024-06-09] MEDS ORDERED: PRED20TA2 PO (15:38)
[2024-06-09] MEDS ORDERED: LEVO500T91 PO (15:38)
--- NOTE | 2024-06-09 15:44 | DVHDS2 ---
Discharge Summary Date of Admission Jun 07, 2024 at 12:44 Date of Discharge: Jun 09, 2024 Admitting Diagnosis Acute respiratory failure Labs/Diagnostic Data: Laboratory Results Test 06/09/24 06:05 06/08/24 08:27 06/07/24 17:21 06/07/24 08:42 White Blood Count 12.3 10^3/uL (4.4-10.8) Red Blood Count 4.40 10^6/uL (4.5-5.90) Hemoglobin 12.5 g/dL (13.5-17.5) Hematocrit 38.2 % (41.0-53.0) Mean Corpuscular Volume 86.9 fL (80.0-100.0) Mean Corpuscular Hemoglobin 28.4 pg (28.0-32.0) Mean Corpuscular Hemoglobin Concent 32.7 g/dL (32.0-36.0) Red Cell Distribution Width 15.0 % (11.8-14.3) Platelet Count 312 10^3/uL (140-450) Mean Platelet Volume 7.8 fL (6.9-10.8) Neutrophils (%) (Auto) 78.2 % (37.0-80.0) Lymphocytes (%) (Auto) 13.0 % (10.0-50.0) Monocytes (%) (Auto) 8.7 % (0.0-12.0) Eosinophils (%) (Auto) 0.0 % (0.0-7.0) Basophils (%) (Auto) 0.1 % (0.0-2.0) Neutrophils # (Auto) 9.7 10 ^3/uL (1.6-8.6) Lymphocytes # (Auto) 1.6 10 ^3/uL (0.4-5.4) Monocytes # (Auto) 1.1 10 ^3/uL (0-1.3) Eosinophils # (Auto) 0 10 ^3/uL (0-0.8) Basophils # (Auto) 0 10 ^3/uL (0-0.2) Nucleated Red Blood Cells 0.0 % Sodium Level 138 mmol/L (136-145) Potassium Level 3.9 mmol/L (3.5-5.1) Chloride Level 103 mmol/L (98-107) Carbon Dioxide Level 29 mmol/L (20-31) Anion Gap 6 (5-15) Blood Urea Nitrogen 25 mg/dL (9-23) Creatinine 0.79 mg/dL (0.700-1.30) Glomerular Filtration Rate Calc 102 mL/min (>90) BUN/Creatinine Ratio 31.6 (10.0-20.0) Serum Glucose 105 mg/dL (74-106) Calcium Level 9.7 mg/dL (8.7-10.4) Total Bilirubin 0.5 mg/dL (0.2-1.0) Aspartate Amino Transferase (AST) 14 U/L (13-40) Alanine Aminotransferase (ALT) < 9 U/L (7-40) Alkaline Phosphatase 49 U/L (46-116) Total Protein 6.1 g/dL (5.7-8.2) Albumin 4.1 g/dL (3.2-4.8) POC Glucose 131 mg/dl (70-106) Blood Gas Specimen Type Arterial Blood Gas Sample Site Left radial Blood Gas Patient Temperature 37.0 Arterial Blood Date Drawn [id number] Arterial Blood pH 7.382 (7.350-7.450) Arterial Blood Partial Pressure CO2 52.3 mmHg (35.0-48.0) Arterial Blood Partial Pressure O2 71.8 mmHg (83.0-108.0) Arterial Blood HCO3 30.4 mmol/L (21.0-28.0) Arterial Blood Oxygen Saturation 93.6 % (94.0-98.0) Arterial Blood Base Excess 4.1 mmol/L (-2.0-3.0) Arterial Blood Oxyhemoglobin 92.0 % (94.0-98.0) Arterial Blood Carboxyhemoglobin 1.2 % (0.5-1.5) Arterial Blood Methemoglobin 0.5 % (0.0-1.5) Godfrey Test Modified Blood Gas Total Hemoglobin 14.30 g/dL (13.5-17.5) Blood Gas Modality Mask - bipap Blood Gas Spontaneous Rate 20 FiO2 % 35.0 Blood Gas Spontaneous Tidal Volume 825 Blood Gas EPAP 5 Blood Gas IPAP 14 Test 06/07/24 08:31 06/07/24 08:21 06/07/24 08:19 06/07/24 07:30 Troponin I High Sensitivity 22 ng/L (</=54) Influenza Type A Antigen Negative (Negative) Influenza Type B Antigen Negative (Negative) SARS-CoV-2 Antigen (Rapid) Negative (NEGATIVE) Urine Color Light-yellow (Yellow) Urine Clarity Clear (Clear) Urine pH 6.5 (5.0-9.0) Urine Specific [place] 1.020 (1.001-1.035) Urine Protein Negative (Negative) Urine Ketones Negative (Negative) Urine Blood Negative /uL (Negative) Urine Nitrite Negative (Negative) Urine Bilirubin Negative (Negative) Urine Urobilinogen Normal mg/dL (Negative) Urine Leukocyte Esterase Negative /uL (Negative) Urine RBC 2 /hpf (0 - 3) Urine WBC 1 /hpf (0 - 3) Urine Squamous Epithelial Cells Few /hpf (<5) Urine Bacteria None seen /hpf (None Seen) Urine Hyaline Casts Few /lpf (0 - 2) Urine Glucose Normal mg/dL (Normal) Hemoglobin A1c 5.7 % A1C (<5.7) Test 06/07/24 06:36 Blood Gas Critical Value Read Back Yes Blood Gas Notified Whom ana Abbott md Blood Gas Notified Time [id number] Blood Gas Notified By Digital Media Representative jose de jesus Other Laboratory Tests 06/09/24 06:05 Brief Hx & Hospital Course: History of Present Illness Alon Eid is a 58-year-old male with past medical history of hypertension, COPD, asthma, AFib, and appendectomy who presents to the ED today for shortness of breaths. Patient was found down by friend at home called EMS. When EMS was on scene noted to have saturation 40% on room air, patient was then brought into ED for evaluation on a CPAP. Patient reports that he uses 3 L of oxygen via nasal cannula at home. Patient reports that he had showered and had gone to sleep then woke up in the ED. patient reports that he smokes 2 packs of cigarettes per day, does not drink, and does not use illicit drugs. Patient denies any chest pain, lightheadedness, dizziness, nausea, vomiting, abdominal pain, diarrhea, and recent trauma or injury. Course of hospitalization: Patient was continued on O2 supplementation, antibiotic, as well as bronchodilators and IV steroids while in the hospital. Patient's respiratory status improved. Patient was noted to be ambulating around the hospital without O2 supplementation, denying having any dyspnea or dizziness. Chest x-ray did reveal right lower lobe opacity/atelectasis. Given patient was improvement with respiratory status, he will be discharged home and be continued on antibiotic therapy with Levaquin 500 mg p.o. daily x5 days as well as prednisone 20 mg p.o. daily x5 days. He will follow up with his PCP in 2-3 weeks, discharge Clinic in one week, and is instructed to obtain follow up with the financial aid manager once referral has been obtained. He was to continue using O2 supplementation at home 2-3 liters/minute. All questions answered. Smoking cessation was also dressed with the patient, 10 minutes spent with the patient. Patient states that he will attempt to stop smoking and denies any further treatment with this addiction. Physical examination General: Alert and Oriented x3. No acute distress. Well-nourished. Eyes: EOMI. Anicteric. HENT: Moist mucous membranes. Lungs: diminished breath sounds bilaterally Cardiovascular: Regular rate and rhythm. No murmur. No JVD. Abdomen: Soft, non-tender and non-distended. No palpable masses. Extremities: No edema. Non-tender. Skin: No rashes or lesions. Warm. Neurologic: No focal neurological deficits. CN II-XII grossly intact, but not individually tested. Psychiatric: Cooperative. Appropriate mood and affect. Total time spent with patient discussing and formulating plan of care: 35 minutes. This medical document was created using an electronic medical record system with [employer] dictation system. Although this document has been carefully reviewed, there may still be some phonetic and typographical errors. These areas are purely typographical due to imperfections of the software programs, and do not reflect any compromise in the patient's medical care. Condition at Discharge: Poor Final Diagnosis/Problems List Acute on Chronic Respiratory Failure Secondary Diagnosis: -acute hypoxic respiratory failure -community-acquired pneumonia, Gram-positive/Gram-negative etiology -COPD with exacerbation -asthma -nicotine dependence -primary hypertension -atrial fibrillation Discharge Disposition: Home Discharge Instruct/Medications Diet: Cardiac 2g Na,low cholest Activity: No Restrictions, As Tolerated Follow Up/Referral: DC clinic in 1 week Medications: Levaquin 500mg po daily x 5 days Prednisone 20mg po daily x 5 days 36 Discharge Statement: "Patient was advised to return to the ER or call 911 if any headaches, dizziness, shortness of breath, chest pain, abdominal pain, bleeding, fevers, or worsening of medical condition. Patient was counseled about treatment plan, medications, possible side effects, patientverbalized understanding. All questions were answered to the best of my ability. This discharge took greater then 30 minutes in planning, reviewing documentation, counseling the patient, and discussing with other team members." ASSESSMENT ASSESSMENT Assessment Acute on Chronic Respiratory Failure Date of Service: Jun 09, 2024 Billing Provider: ESSENCE FONG NP Common Visit Codes: 56157-DHL/OBS DISCH DAY >30min ESSENCE FONG NP Jun 09, 2024 15:44
== END 2024-06-09 17:32 | disposition home or self-care (01) | DRG 177 ==
LOC: EDBD 06:05 → ER 06:05 → TELE 12:44 → TELE-WESTW 06-08 02:04
PROVIDERS: ADMIT Nurse Practitioner Acute Care; ATTEND Nurse Practitioner Acute Care
PROC: 5A09357 Assistance with Respiratory Ventilation, Less than 24 Consecutive Hours, Continuous Positive Airway Pressure (ICD-10-PCS; principal; 2024-06-07)
DX: J15.69 Pneumonia due to other Gram-negative bacteria (principal); J96.21 Acute and chronic respiratory failure with hypoxia; J96.22 Acute and chronic respiratory failure with hypercapnia; J44.1 Chronic obstructive pulmonary disease with (acute) exacerbation; J45.901 Unspecified asthma with (acute) exacerbation; J98.11 Atelectasis; J44.0 Chronic obstructive pulmonary disease with (acute) lower respiratory infection; R65.10 Systemic inflammatory response syndrome (SIRS) of non-infectious origin without acute organ dysfunction; Z20.822 Contact with and (suspected) exposure to COVID-19; J15.9 Unspecified bacterial pneumonia; E87.6 Hypokalemia; I10 Essential (primary) hypertension; I48.91 Unspecified atrial fibrillation; R73.9 Hyperglycemia, unspecified; F17.210 Nicotine dependence, cigarettes, uncomplicated; Z90.49 Acquired absence of other specified parts of digestive tract
CPT/HCPCS: 36415; 36600; 71045; 80048; 80053; 81001; 82805; 82962; 83036; 84484; 85025; 87426; 87804; 93005; 94640; 94660; 96365; 99291; G0378; J3490

== ENCOUNTER 2024-06-20 05:10 | Inpatient (IN) | payer OTHER, MEDICAID ==
[~2024-06-20] VITALS: Ht 182.9 cm; Wt 88.0 kg
[2024-06-20] VITALS (21 sets, daily range): BP systolic 78–127; BP diastolic 55–97; PULSE 71–126; RESP 18–31; TEMP 97.2–98.6; O2SAT 95–99
[~2024-06-20 05:10] MED LIST changes: -DOXY-286 PO; +LEVO500T91 PO; -LEVO750T40 PO; -METH4PAK PO; -NICO21DI37 TOP; -PRED10TA PO
--- NOTE | 2024-06-20 05:22 | ED.PDOC ---
History of Present Illness HPI Comments 58 y/o M, with a Hx of acute respiratory failure, asthma, AFIB, COPD w/2LPM home O2, HTN, PNA, and nicotine dependence, is BIBA for c/o shortness of breath, today. Per EMS report, patient called at 0430, this morning, following sudden and unprovoked onset of difficulty breathing that awoke him from his sleep and had no relief after increasing his O2 to 4LPM. On scene, patient was noted to have been found tripoding, with a SpO2 82%, dimished lung sounds, and hypertensive. He was then commented to have been placed on CPAP after having no improvement with initial DuoNeb breathing treatment administration en route along with 18G placement to RAC. Upon arrival to ED, patient still reports being short of breath. He has no reported chest pain, palpitations, cough, fever, chills, or other associated symptoms or modifiers at this time. Chief Complaint: Shortness of Breath Time Seen by MD: 05:10 Primary Care Provider: UNKNOWN NAME Reviewed Notes: Nurses Notes, Recruiter Account Manager Notes, Medications, Allergies Allergies: Coded Allergies: NO KNOWN ALLERGIES (Unverified , 12/20/22) Home Meds Active Scripts Levofloxacin Hemihydrate (LEVAQUIN 500 MG) 500 Mg Tab, 1 TAB PO DAILY for 5 Days, #5 TAB Prov:ESSENCE FONG HIGH SCHOOL SCIENCE TUTOR 06/09/24 Prednisone (Prednisone) 20 Mg Tab, 20 MG PO DAILY for 5 Days, #5 MG Prov:ESSENCE FONG HIGH SCHOOL SCIENCE TUTOR 06/09/24 Famotidine (PEPCID TABLET) 20 Mg Tb, 1 TAB PO DAILY for 10 Days, #10 TAB 5 Refi lls Prov:JOHNNY MURRY MD 06/04/24 Azithromycin (Zithromax Z-Loc) 250 Mg Tab, 250 MG PO BID for 3 Days, #6 TAB Prov:MERLIN YING RESIDENT 03/20/24 Acetaminophen (Acetaminophen) 325 Mg Tab, 650 MG PO Q6HP PRN for 10 Days, #80 TAB Prov:FELECIA MARTINEZ RESIDENT 01/25/24 Reported Medications Hctz (Hydrochlorothiazide) 25 Mg Tab, 1 TAB PO DAILY 01/24/24 Temazepam (Restoril) 15 Mg Cp, 1 CAP PO QHSP 07/06/23 Albuterol Sulfate (Albuterol Sulfate) 0.083 % Neb, 1 PUFF NEB Q4H PRN for SHORTNESS OF BREATH 12/21/22 Albuterol Sulfate (Albuterol Sulfate Hfa) 108 Mcg/Act Aer, 108 MCG INH Q4HP PRN for SHORTNESS OF BREATH 12/21/22 Budesonide-Formoterol Fumarate (Budesonide/Formoterol Fum 160-4.5 Mcg/Act) 1 Aer Aer, 2 PUFF INH BID 12/21/22 Information Source: Patient, Emergency Med Personnel Mode of Arrival: EMS Severity: Moderate Timing: Hours Duration: Since onset Prehospital treatment: 12 Lead EKG, Breathing Tx (DuoNebulizer), Research Nutritionist, C-Pap Past Medical History PAST MEDICAL HISTORY: AFIB, Asthma, COPD, HTN Past Medical History (Other): acute on chronic respiratory failure, acute hypoxic respiratory failure, PNA Surgical History: Appendectomy Family History Family History: Family hx of Cancer Social History Smoker: Cigarettes Alcohol: Denies ETOH Use Drugs: Denies Drug Use Lives In: Home Respiratory: reports: shortness of breath All Other Systems: Reviewed and Negative (negative unless otherwise stated above or in HPI) Physical Exam General Appearance: Moderate Distress, Normal HEENT: Normal ENT Inspection, Pharynx Normal, TMs Normal Neck: Full Range of Motion, Non-Tender, Normal, Normal Inspection Respiratory: Chest Non-Tender, No Accessory Muscle Use, No Respiratory Distress, Wheezing, Other (tachypneic) Cardiovascular: No Edema, No JVD, No Murmur, No Gallop, Normal Peripheral Pulses, Tachycardia Breast Exam: Deferred Gastrointestinal: No Organomegaly, Non Tender, No Pulsatile Mass, Normal Bowel Sounds, Soft Genitalia: Deferred Pelvic: Deferred Rectal: Deferred Extremities: No calf tenderness, Normal capillary refill, Normal inspection, Normal range of motion, Non-tender, No pedal edema Musculoskeletal : Apperance: Normal Neurologic: Alert, senior management consultant II-XII nml as Tested, No Motor Deficits, Normal Affect, Normal Mood, No Sensory Deficits Cerebellar Function: Normal Reflexes: Normal Skin: Diaphoresis, Normal Color, Warm Lymphatic: No Adenopathy Was a procedure done? Was a procedure done?: No Differential Dx Considerations may include: COPD exacerbation, asthma exacerbation, URI, viral syndrome, pleural effusions, bronchitis, bronchiolitis, covid19, influenza, PNA X-Ray, Labs, Meds, VS Vital Signs Date Time Temp Pulse Resp B/P (MAP) Pulse Ox O2 Delivery O2 Flow Rate FiO2 06/20/24 05:35 100.1 126 31 100/72 (81) 98 100.1 06/20/24 05:15 100.1 128 24 203/109 (140) 98 06/20/24 05:10 31 98 Bi-Pap+ 50 50 06/20/24 05:10 124 100/72 Facial BiPAP Mask 50 Lab Test 06/20/24 05:20 06/20/24 05:19 Range/Units Blood Gas Specimen Type Venous Blood Gas Sample Site Vbg - n/a Blood Gas Patient Temperature 37.0 Arterial Blood Date Drawn [id number] Godfrey Test N/a Venous Blood pH 7.126 *L 7.320-7.430 Venous Blood pCO2 at Patient Temp 81.7 *H 38.0-54.0 mmHg Venous Blood pO2 at Patient Temp 119.0 H 23.0-48.0 mmHg Venous Blood HCO3 26.3 22.0-29.0 mmol/L Venous Blood Base Excess -5.1 L -2.0-3.0 mmol/L Blood Gas Modality Mask - bipap FiO2 % 50.0 Blood Gas EPAP 5 Blood Gas IPAP 12 Blood Gas Critical Value Read Back Yes Blood Gas Notified Whom md es brooks Blood Gas Notified Time [id number] Blood Gas Notified By Software Product Manager jarrett mane White Blood Count 6.8 4.4-10.8 10^3/uL Red Blood Count 5.00 4.5-5.90 10^6/uL Hemoglobin 14.4 13.5-17.5 g/dL Hematocrit 44.0 41.0-53.0 % Mean Corpuscular Volume 88.0 80.0-100.0 fL Mean Corpuscular Hemoglobin 28.7 28.0-32.0 pg Mean Corpuscular Hemoglobin Concent 32.7 32.0-36.0 g/dL Red Cell Distribution Width 16.0 H 11.8-14.3 % Platelet Count 329 140-450 10^3/uL Mean Platelet Volume 6.8 L 6.9-10.8 fL Neutrophils (%) (Auto) 48.2 37.0-80.0 % Lymphocytes (%) (Auto) 34.4 10.0-50.0 % Monocytes (%) (Auto) 15.2 H 0.0-12.0 % Eosinophils (%) (Auto) 0.8 0.0-7.0 % Basophils (%) (Auto) 1.4 0.0-2.0 % Neutrophils # (Auto) 3.3 1.6-8.6 10 ^3/uL Lymphocytes # (Auto) 2.3 0.4-5.4 10 ^3/uL Monocytes # (Auto) 1.0 0-1.3 10 ^3/uL Eosinophils # (Auto) 0.1 0-0.8 10 ^3/uL Basophils # (Auto) 0.1 0-0.2 10 ^3/uL Nucleated Red Blood Cells 0.2 % Sodium Level Pending Potassium Level Pending Chloride Level Pending Carbon Dioxide Level Pending Anion Gap Pending Blood Urea Nitrogen Pending Creatinine Pending Glomerular Filtration Rate Calc Pending BUN/Creatinine Ratio Pending Serum Glucose Pending Lactic Acid Level Pending Calcium Level Pending Troponin I High Sensitivity Pending B-Type Natriuretic Peptide Pending Current Medications Medications (Trade) Dose Ordered Sig/Milvia Route Start Time Stop Time Status Last Admin Methylprednisolone Sodium Succinate (Solu Medrol) 62.5 mg ONCE ONCE IV 06/20/24 05:30 06/20/24 05:31 DC 06/20/24 05:23 Ipratropium [place] (Atrovent Medneb) 0.5 mg ONCE ONCE NEB 06/20/24 05:30 06/20/24 05:31 DC 06/20/24 05:39 Azithromycin 250 ml @ 125 mls/hr ONCE ONCE IV 06/20/24 05:30 06/20/24 07:29 06/20/24 05:24 Albuterol (Ventolin Medneb) 20 mg ONCE ONCE NEB 06/20/24 05:30 06/20/24 05:31 DC 06/20/24 05:40 Time of 1ST Reevaluation: 05:40 Reevaluation 1ST: Unchanged Patient Education/Counseling: Diagnosis, Treatment Family Education/Counseling: No Family Present Additional Information I reviewed the following notes from patient's past medical encounters: ED physician document note on 06/07/24, 06/02/24, 04/05/24 and hospital admission discharge summary report on 06/09/24, 06/04/24, and 04/07/24 The following tests were ordered, and results were reviewed by me: troponin, CXR, CBC, CMP, BNP, lactic acid Additional Information was gathered from interviewing the following independent historians: EMT I reviewed and agreed with the following test results read by other providers: CXR I discussed treatment and results with medical personnel Departure 1 Departure Time of Disposition: 05:54 (Patient presented with acute shortness of breath concerning for acute on chronic COPD Exacerbation, Pneumonia, ACS, CHF, Pneumothorax. Less likely PE, Dissection. Data: 1. I ordered and reviewed the r esult of at least 3 labs including a CBC, BMP, and Troponin. 2. I independently interpreted the following tests: Chest X-ray shows enlarged lungs .Risk:This patient has a high risk of morbidity due to further diagnostic testing or treatment and may suffer from respiratory or cardiac etiology . Workup reveals a likely COPD Exacerbation and patient should be admitted for further workup. and possible expert consultation.) Impression: Primary Impression: Respiratory failure, acute Qualified Codes: J96.01 - Acute respiratory failure with hypoxia; J96.02 - Acute respiratory failure with hypercapnia Additional Impression: COPD exacerbation Disposition: ADMITTED INPATIENT Admit to: [facility] Condition: Guarded Critical Care Note Critical Care Time?: Yes Critical care comment: Acute respiratory failure Authorized and Performed by: Radha Brooks MD Total critical care time: Approximately 39 minutes Due to a high probability of clinically significant, life threatening deterioration, the patient required my highest level of preparedness to interven e emergently and I personally spent this critical care time directly and personally managing the patient. This critical care time included obtaining a history; examining the patient; pulse oximetry; ordering and review of studies; arranging urgent treatment with development of a management plan; evaluation of patient's response to treatment; frequent reassessment; and, discussions with other providers. This critical care time was performed to assess and manage the high probability of imminent, life-threatening deterioration that could result in multi-organ failure. It was exclusive of separately billable procedures and treating other patients and teaching time. Please see my other sections and the rest of the note for further information on patient assessment and treatment. Stability Stability form required: No I personally scribed for RADHA BROOKS MD ([email or web address]) on 06/20/24 at 05:22. Electronically submitted by Alon Moody ([email or web address]). I personally scribed for RADHA BROOKS MD ([email or web address]) on 06/20/24 at 05:25. Electronically submitted by Alon Moody ([email or web address]). I personally scribed for RADHA BROOKS MD ([email or web address]) on 06/20/24 at 05:46. Electronically submitted by Alon Moody ([email or web address]). RADHA BROOKS MD Jun 20, 2024 05:22
[2024-06-20] MEDS: methylPREDNISolone SOD SUCC 125 MG/2 ML VL IV ONE ×2 (05:23→05:56)
[2024-06-20] MEDS: AZITHROMYCIN 500MG/ 250ML 250 ML IV ONE (05:24)
[2024-06-20] MEDS ORDERED: ALBUTEROL SULF 2.5 MG/0.5ML(0.5%) NEB SOLN NEB ONE (05:30)
[2024-06-20 05:35] LABS: Basophils # (auto) 0.1 10 ^3/uL (0-0.2); Basophils % (auto) 1.4 % (0.0-2.0); Eosinophils # (auto) 0.1 10 ^3/uL (0-0.8); Eosinophils % (auto) 0.8 % (0.0-7.0); Hemoglobin 14.4 g/dL (13.5-17.5); Lymphocytes # (auto) 2.3 10 ^3/uL (0.4-5.4); Lymphocytes % (auto) 34.4 % (10.0-50.0); Mean Corpuscular Hemoglobin 28.7 pg (28.0-32.0); Mean Corpuscular Hgb Conc. 32.7 g/dL (32.0-36.0); Monocytes % (auto) 15.2 % (0.0-12.0); Neutrophils # (auto) 3.3 10 ^3/uL (1.6-8.6); Neutrophils % (auto) 48.2 % (37.0-80.0); Nucleated Red Blood Cells % 0.2 %; Platelet Count (auto) 329 10^3/uL (140-450); White Blood Cell 6.8 10^3/uL (4.4-10.8)
[2024-06-20] MEDS: ALBUTEROL SULF 2.5 MG/0.5ML(0.5%) NEB SOLN ONE (05:35)
[2024-06-20] MEDS: IPRATROPIUM BROM 0.5 MG/2.5ML INH SOL NEB ONE (05:39)
[2024-06-20] MEDS: ALBUTEROL SULF 2.5 MG/0.5ML(0.5%) NEB SOLN NEB ONE (05:40)
[2024-06-20] MEDS: KETAMINE 50mg/ML 10ml Vial 10 ML ONE (05:47)
[2024-06-20 05:51] LABS: Chloride 106 mmol/L (98-107); Potassium 4.2 mmol/L (3.5-5.1); Sodium 141 mmol/L (136-145)
[2024-06-20 05:52] LABS: Anion Gap 5 (5-15); Calcium 9.6 mg/dL (8.7-10.4); Carbon Dioxide 30 mmol/L (20-31)
[2024-06-20 05:57] LABS: BUN/Creatinine Ratio 13.5 (10.0-20.0); Blood Urea Nitrogen 14 mg/dL (9-23); Glucose 129 mg/dL (74-106)
[2024-06-20] MEDS: ACETAMINOPHEN IV 1000 MG/100ML (10MG/ML) IV STA (06:04)
[2024-06-20] MEDS: KETAMINE 50mg/ML 10ml Vial (500mg/10ml) IV ONE (06:15)
--- NOTE | 2024-06-20 06:24 | DVH ---
CHEST RADIOGRAPH Indication: sob Technique: Single frontal view of the chest was obtained Comparison: XY CHEST PORTABLE on DOS: 06/09/24 FINDINGS: Lines and Tubes: None Lungs: No focal consolidation. Pleura: No effusion. No pneumothorax. Cardiomediastinal contours: Unremarkable Bones: No acute osseous abnormality. IMPRESSION: 1. No acute cardiopulmonary disease.
--- NOTE | 2024-06-20 06:42 | ECG ---
[facility] Test Date: 2024-06-20 Test Time: 06:11:44 Pat Name: YONATHAN VARNER Department: ED Room: [address] [place] [address] Gender: M Cigar Machine Feeder: KOLTON : 1965 Requested By: RADHA WEISS Order Number: [id number] Reading MD: Mingo Fox Measurements Intervals [place] Rate: 126 P: 78 MT: 149 QRS: -39 QRSD: 97 T: 60 QT: 315 QTc: 457 Interpretive Statements Sinus tachycardia Left axis deviation Baseline wander in lead(s) V1 Electronically Signed On 06-22-2024 16:35:35 PST by Mingo Fox Please click the below link to view image of tracing.
[2024-06-20] MEDS: MAGNESIUM SULFATE 1GM/100ML 100 ML IV ONE ×2 (06:45→12:45)
[2024-06-20] MEDS: LORazepam 2MG/ML-1ML VIAL IV ONE (07:05)
[2024-06-20] MEDS ORDERED: NITROGLYCERIN 0.4 MG SL TAB SL PRN (07:15)
[2024-06-20] MEDS ORDERED: ONDANSETRON HCL 4 MG/2 ML VIAL IV PRN (07:15)
[2024-06-20] MEDS ORDERED: MORPHINE SULFATE INJ 2 MG/ml SYRG IV PRN (07:15)
--- NOTE | 2024-06-20 07:27 | DVHHP2 ---
History of Present Illness Reason for Visit: SOB History of Present Illness Alon Eid is a 58-year-old male with past medical history of hypertension, COPD, asthma, AFib, pneumonia, nicotine dependence, chronic back pain, and appendectomy who presents to the ED with shortness of Breath x1 day. Patient reports that the shortness of breath woke him up from sleep around 430 a.m.. Patient also reports that he has had prior COPD exacerbations. Upon examination patient working extremely hard to breathe and currently on the BiPAP. Unable to obtain further history as patient recurs immediate intubation. Cardiovascular: AFIB, HTN Pulmonary: Asthma, COPD, Pneumonia Past Medical History Nicotine dependence Past Surgical History: Appendectomy Family History: Cancer, Other (Dad with cancer) Smoke: 2 packs per day ALCOHOL: none Drugs: None Lives: with Family Domestic Violence: Neg Review of Systems Constitutional: No: Fever, Chills, Sweats, Weakness, Malaise, Other Eyes: No: Pain, Vision change, Conjunctivae inflammation, Eyelid inflammation, Other, Redness ENT: No: Ear pain, Ear discharge, Nose pain, Nose discharge, Nose congestion, Mouth pain, Mouth swelling, Throat pain, Throat swelling, Other Respiratory: Shortness of breath; No: Cough, Dry, SOB with excertion, Wheezing, Hemoptysis, Pleuritic Pain, Sputum, Wheezing, Other Cardiovascular: No: Chest Pain, Palpitations, Orthopnea, Paroxysmal Noc. Dyspnea, Edema, Lt Headedness, Other Gastrointestinal: No: Nausea, Vomiting, Abdominal Pain, Diarrhea, Constipation, Melena, Hematochezia, Other Genitourinary: No Dysuria, No Frequency, No Incontinence, No Hematuria, No Retention, No Other Musculoskeletal: No: other, neck pain, shoulder pain, arm pain, back pain, hand pain, leg pain, foot pain Skin: No: Rash, Lesions, Jaundice, Bruising, Other Neurological: No: Weakness, Numbness, Incoordination, Change in speech, Confusion, Seizures, Other Allergies: Coded Allergies: NO KNOWN ALLERGIES (Unverified , 12/20/22) Medications Current Medications Medications Dose Ordered Sig/Milvia Route Start Time Stop Time Status Last Admin Dose Admin Sodium Chloride 1,000 ml @ 60 mls/hr [id number] IV 06/20/24 07:15 UNV Ondansetron HCl 4 mg Q4HP PRN IV 06/20/24 07:15 UNV Nitroglycerin 0.4 mg Q5MINP PRN SL 06/20/24 07:15 UNV Morphine Sulfate 2 mg Q30M PRN IV 06/20/24 07:15 UNV Furosemide 40 mg DAILY IV 06/20/24 10:00 UNV Albuterol 2.5 mg Q4HR NEB 06/20/24 10:00 UNV Albuterol 2.5 mg Q6HPRN PRN NEB 06/20/24 07:30 UNV Ipratropium [place] 0.5 mg Q6HR NEB 06/20/24 12:00 UNV Ipratropium [place] 0.5 mg Q4HPRN PRN NEB 06/20/24 07:30 UNV Methylprednisolone Sodium Succinate 40 mg Q8HR IV 06/20/24 14:00 UNV Pantoprazole Sodium 40 mg DAILY IV 06/20/24 10:00 UNV Budesonide 0.5 mg BID NEB 06/20/24 10:00 UNV Exam Vital Signs Vital Signs Date Time Temp Pulse Resp B/P (MAP) Pulse Ox O2 Delivery O2 Flow Rate FiO2 06/20/24 07:00 99.0 128 22 137/97 (110) 95 99.0 06/20/24 05:54 Facial BiPAP Mask 40 General Appearance: Alert, severe distress Cardiovascular: Normal S1, Normal S2, No murmurs Abdominal: Normal bowel sounds, Soft, No tenderness, No hepatospenomegaly, No masses Skin: No significant lesion Neuro: Normal tone, Sensation intact Labs/Xrays Labs Test 06/20/24 06:15 06/20/24 05:20 06/20/24 05:19 Range/Units Troponin I High Sensitivity 89 *H </=54 ng/L Blood Gas Specimen Type Venous Blood Gas Sample Site Vbg - n/a Blood Gas Patient Temperature 37.0 Arterial Blood Date Drawn [id number] Godfrey Test N/a Venous Blood pH 7.126 *L 7.320-7.430 Venous Blood pCO2 at Patient Temp 81.7 *H 38.0-54.0 mmHg Venous Blood pO2 at Patient Temp 119.0 H 23.0-48.0 mmHg Venous Blood HCO3 26.3 22.0-29.0 mmol/L Venous Blood Base Excess -5.1 L -2.0-3.0 mmol/L Blood Gas Modality Mask - bipap FiO2 % 50.0 Blood Gas EPAP 5 Blood Gas IPAP 12 Blood Gas Critical Value Read Back Yes Blood Gas Notified Whom md es brooks Blood Gas Notified Time [id number] Blood Gas Notified By Bioinformatician jarrett mane White Blood Count 6.8 4.4-10.8 10^3/uL Red Blood Count 5.00 4.5-5.90 10^6/uL Hemoglobin 14.4 13.5-17.5 g/dL Hematocrit 44.0 41.0-53.0 % Mean Corpuscular Volume 88.0 80.0-100.0 fL Mean Corpuscular Hemoglobin 28.7 28.0-32.0 pg Mean Corpuscular Hemoglobin Concent 32.7 32.0-36.0 g/dL Red Cell Distribution Width 16.0 H 11.8-14.3 % Platelet Count 329 140-450 10^3/uL Mean Platelet Volume 6.8 L 6.9-10.8 fL Neutrophils (%) (Auto) 48.2 37.0-80.0 % Lymphocytes (%) (Auto) 34.4 10.0-50.0 % Monocytes (%) (Auto) 15.2 H 0.0-12.0 % Eosinophils (%) (Auto) 0.8 0.0-7.0 % Basophils (%) (Auto) 1.4 0.0-2.0 % Neutrophils # (Auto) 3.3 1.6-8.6 10 ^3/uL Lymphocytes # (Auto) 2.3 0.4-5.4 10 ^3/uL Monocytes # (Auto) 1.0 0-1.3 10 ^3/uL Eosinophils # (Auto) 0.1 0-0.8 10 ^3/uL Basophils # (Auto) 0.1 0-0.2 10 ^3/uL Nucleated Red Blood Cells 0.2 % Sodium Level 141 136-145 mmol/L Potassium Level 4.2 3.5-5.1 mmol/L Chloride Level 106 98-107 mmol/L Carbon Dioxide Level 30 20-31 mmol/L Anion Gap 5 5-15 Blood Urea Nitrogen 14 9-23 mg/dL Creatinine 1.04 0.700-1.30 mg/dL Glomerular Filtration Rate Calc 83 >90 mL/min BUN/Creatinine Ratio 13.5 10.0-20.0 Serum Glucose 129 H 74-106 mg/dL Lactic Acid Level 1.7 0.4-2.0 mmol/L Calcium Level 9.6 8.7-10.4 mg/dL B-Type Natriuretic Peptide 30.81 0-100 pg/mL CHEST RADIOGRAPH Indication: sob Technique: Single frontal view of the chest was obtained Comparison: XY CHEST PORTABLE on DOS: 06/09/24 FINDINGS: Lines and Tubes: None Lungs: No focal consolidation. Pleura: No effusion. No pneumothorax. Cardiomediastinal contours: Unremarkable Bones: No acute osseous abnormality. IMPRESSION: 1. No acute cardiopulmonary disease. Assessment/Plan Assessment/Plan Assessment/Plan: Acute respiratory failure likely secondary to COPD exacerbation Rule out sepsis Elevated troponins likely noncardiac in nature Labs Chest x-ray Ativan given in ED Magnesium rider IV antibiotics-vancomycin+ cefepime+ azithromycin given in ED Antipyretics IV steroids Ketamine given in ED Respiratory treatments EKG Blood cultures Troponin Lactic VBG BNP ABG Intubated on vent Inhaled steroids Lasix A.m. labs Chest x-ray in a.m. IV Abx - ceftriaxone+ azithromycin tsh ua urine culture D-dimer ordered Cardiology consult troponin peaked at 405 Chronic hypertension Continue home medications Chronic AFib Continue home medication Nicotine dependence Counseled patient on tobacco cessation FEN/PPX NPO IV fluid DVT prophylaxis-Lovenox PUD prophylaxis-continue home medication, famotidine Admit patient to ICU Discussed plan of care with patient and nurse Home medications reconciled Plan discussed with: Patient My Orders Orders - GAURANG DRAKE TIE PULLER Procedure Category Date Status Time Admit ADMIT 06/20/24 Transmitted 07:06 Allergies COURTNEY 06/20/24 In Process 07:06 Code Status CODE 06/20/24 Transmitted 07:06 Sodium Chloride 0.9% PHA 06/20/24 Logged 07:15 Ondansetron Hcl PHA 06/20/24 Logged (Zofran) 07:15 Complete Blood Count LAB 06/21/24 Verified 04:00 Comprehensive LAB 06/21/24 Verified Metabolic Panel 04:00 Npo (Nothing By DIET 06/20/24 Transmitted Mouth) Diet Breakfast Nitroglycerin PHA 06/20/24 Logged Sublingual (Ntrostat 07:15 Morphine Sulfate PHA 06/20/24 Logged Injection 07:15 Stat Ekg For Chest [facility] 06/20/24 In Process Pain 07:06 Notify Of Changes [facility] 06/20/24 In Process From Base 07:06 Video Presentation Operator For [facility] 06/20/24 In Process 24 Hours 07:06 Emergency Dysrhythmia [facility] 06/20/24 In Process Protocol 07:06 Rhythm Strips Once [facility] 06/20/24 In Process Every Shift 07:06 Oxygen By Nasal RT 06/20/24 Transmitted Cannula 07:06 Furosemide Injection PHA 06/20/24 Logged (Lasix Injection) 10:00 Albuterol Medneb PHA 06/20/24 Logged (Ventolin Medneb) 10:00 Albuterol Medneb PHA 06/20/24 Logged (Ventolin Medneb) 07:30 Ipratropium Medneb PHA 06/20/24 Logged (Atrovent Medneb) 12:00 Ipratropium Medneb PHA 06/20/24 Logged (Atrovent Medneb) 07:30 Methylprednisolone PHA 06/20/24 Logged Sod Succ (Solu Medrol 14:00 Pantoprazole PHA 06/20/24 Logged (Protonix) 10:00 Budesonide PHA 06/20/24 Logged (Inhalation) 10:00 Chest Xray 1 View XY 06/21/24 Transmitted 04:00 Date of Service: Jun 20, 2024 Billing Provider: GAURANG DRAKE Common Visit Codes: [id number] INP/OBS CARE (HIGH) GAURANG DRAKE Jun 20, 2024 07:27
[2024-06-20] MEDS: VANCOMYCIN 1GM/250ML KIT 200 ML IV ONE (07:30)
[2024-06-20] MEDS ORDERED: ALBUTEROL SULF 2.5 MG/0.5ML(0.5%) NEB SOLN NEB PRN ×2 (07:30→08:00)
[2024-06-20] MEDS ORDERED: IPRATROPIUM BROM 0.5 MG/2.5ML INH SOL NEB PRN (07:30)
[2024-06-20] MEDS: ROCURONIUM 10MG/ML 10ML VIAL IV ONE (07:45)
[2024-06-20] MEDS: ETOMIDATE (2MG/ML) 20ML VIAL IV ONE (07:55)
[2024-06-20] MEDS ORDERED: PROPOFOL 100 ML IV SCH (08:30)
[2024-06-20] MEDS: MIDAZOLAM DRIP 50 mg/50mL 50 ML IV SCH (08:38)
[2024-06-20] MEDS: fentaNYL Drip 2500mCg/250mlNS 250 ML IV SCH (08:52)
[2024-06-20] MEDS: cefTRIAXone 1GM/50ML D5W 50 ML IV SCH (09:00)
--- NOTE | 2024-06-20 09:04 | DVH ---
CHEST RADIOGRAPH Indication: ett placement verification Technique: Single frontal view of the chest was obtained COMPARISON: XY CHEST PORTABLE on DOS: 06/20/24, XY CHEST PORTABLE on DOS: 06/09/24, XY CHEST XRAY 1 VIE W on DOS: 06/08/24, XY CHEST PORTABLE on DOS: 06/07/24, XY CHEST PORTABLE on DOS: 06/02/24 FINDINGS: Lines and Tubes: Endotracheal tube in satisfactory position. Lungs: Clear Pleura: No effusion. No pneumothorax. Cardiomediastinal contours: Unremarkable Bones: Unremarkable IMPRESSION: Endotracheal tube in satisfactory position.
--- NOTE | 2024-06-20 09:05 | DVHNC2 ---
Central Line Recorder of insertion practice: Processor Grain Occupation of housekeeping associate: Attending Physician Indication: Hypotension, CVP monitoring Room prepared for procedure: Yes Processor Grain performed hand hygien: Yes Maximal sterile barrier precau: Mask/Eye shield, Sterile gown Skin Preparation: Chlorhexidine gluconate Skin preparation completely dr: Yes Insertion site: Right, Internal jugular Central line catheter type: Ihu-[id number]-[id number] dialysis Number of lumens: 3 Antiseptic ointment applied to: Yes Post Assessment: Chest X-Ray Intubation Indication: Respiratory Insufficiency Prep: Preoxygenation Pretreated with: Analgesia, Sedation Intubation Approach: Orotracheal Intubation size: cm (8) Date of Service: Jun 20, 2024 Billing Provider: NANETTE MONGE MD Common Visit Codes: [id number] INP/OBS CARE (HIGH) Secondary Visit Codes: [id number] STANDBY SERVICE Consultation Codes: [id number] CONSULT <45MIN Procedure Codes: [id number], 37939-MUAGPA NON-TUNNEL CV CATH NANETTE MONGE MD Jun 20, 2024 09:05
[2024-06-20] MEDS: SODIUM CHLORIDE 0.9% 1,000 ML IV SCH (09:06)
[2024-06-20] MEDS: NOREPINEPHRINE 8 MG/250ML KIT 250 ML IV SCH (09:16)
[2024-06-20] MEDS: ALBUTEROL SULF 2.5 MG/0.5ML(0.5%) NEB SOLN NEB SCH (09:35)
[2024-06-20] MEDS: BUDESONIDE (INHALATION) 0.5 MG/2 ML NEB NEB SCH (09:35)
[2024-06-20] MEDS: IPRATROPIUM BROM 0.5 MG/2.5ML INH SOL NEB SCH (09:35)
[2024-06-20] MEDS: NOREPINEPHRINE 8 MG/250ML KIT 250 ML IV ONE (09:37)
[2024-06-20 09:51] LABS: Base Excess -3.8 mmol/L (-2.0-3.0)
[2024-06-20] MEDS: ENOXAPARIN SOD 40 MG/0.4 ML SYRINGE SC SCH (10:00)
[2024-06-20] MEDS ORDERED: ENOXAPARIN SOD 30 MG/0.3 ML SYRINGE SC SCH (10:00)
[2024-06-20] MEDS: FAMOTIDINE 20 MG TAB PO SCH (10:00)
[2024-06-20] MEDS: FUROSEMIDE 40 MG/4 ML VIAL IV SCH (10:37)
[2024-06-20] MEDS: ENOXAPARIN SOD 80 MG/0.8ML SYRINGE SC ONE (10:37)
[2024-06-20] MEDS: CEFEPIME 2GM/50ML NS 50 ML IV ONE (10:38)
--- NOTE | 2024-06-20 10:38 | DVH ---
EXAM: XY CHEST PORTABLE Indication: central line and og tbe verification Technique: Single frontal view of the chest was obtained Comparison: XY CHEST PORTABLE on DOS: 06/20/24, XY CHEST PORTABLE on DOS: 06/20/24, XY CHEST PORTABLE o n DOS: 06/09/24, XY CHEST XRAY 1 VIEW on DOS: 06/08/24, XY CHEST PORTABLE on DOS: 06/07/24 FINDINGS: Lines and Tubes: Endotracheal and enteric tube are in appropriate position. Lungs: No focal consolidation. Pleura: No effusion. No pneumothorax. Cardiomediastinal contours: Unremarkable Bones: No acute osseous abnormality. IMPRESSION: No acute cardiopulmonary disease.
--- NOTE | 2024-06-20 10:44 | DVHINCON2 ---
Date Seen: Jun 20, 2024 Referring Physician JENNIFER Olivera Reason for Consultation NSTEMI History of Present Illness This is a 58-year-old man who presented to the emergency room via EMS with a chief complaint of shortness of breath. At time of assessment, the patient was found mechanically ventilated with 35% FiO2, on single low-dose vasopressor, and chemically sedated. Information obtained from records which indicate the patient developed severe SOB earlier this morning. Upon EMS arrival he was found on a tripod position with O2 saturations of 82% on O2 via NC, diminished lung sounds, and hypertensive for which he was subsequently given a DuoNeb treatment and placed on CPAP. He was emergently endotracheally intubated upon arrival to the emergency room. Cardiology consulted in the setting of trending troponin levels with latest at 400s ng/L. A 12 lead electrocardiogram revealing sinus tachycardia rhythm. Significant medical history includes hypertension, dyslipidemia, prediabetes, chronic respiratory failure with COPD and home O2 dependence, nicotine dependence smoking two packs of cigarettes per day, and GERD. Of note, previous providers documented history of atrial fibrillation. There is no evidence of tachyarrhythmias during previous admissions on ECGs, TTE, cardiac consultations neither the patient is on antiarrhythmics/DOAC therapy. Past Medical History Past medical history reviewed. No other significant than mentioned above. Past Surgical History Appendectomy Family History: Cardiovascular disease G8 MOTHER, FH: cancer G8 FATHER, Family History Per previous records, not significant for cardiovascular disease. Social History Per previous records, smokes two packs of cigarettes per day. Allergies: Coded Allergies: NO KNOWN ALLERGIES (Unverified , 12/20/22) Home Meds Active Scripts Levofloxacin Hemihydrate (LEVAQUIN 500 MG) 500 Mg Tab, 1 TAB PO DAILY for 5 Days, #5 TAB Prov:ESSENCE FONG SALES REPRESENTATIVE [employer] 06/09/24 Prednisone (Prednisone) 20 Mg Tab, 20 MG PO DAILY for 5 Days, #5 MG Prov:ESSENCE FONG SALES REPRESENTATIVE [employer] 06/09/24 Famotidine (PEPCID TABLET) 20 Mg Tb, 1 TAB PO DAILY for 10 Days, #10 TAB 5 Refills Prov:JOHNNY MURRY MD 06/04/24 Azithromycin (Zithromax Z-Loc) 250 Mg Tab, 250 MG PO BID for 3 Days, #6 TAB Prov:MERLIN YING 03/20/24 Acetaminophen (Acetaminophen) 325 Mg Tab, 650 MG PO Q6HP PRN for 10 Days, #80 TAB Prov:FELECIA MARTINEZ RESIDENT 01/25/24 Reported Medications Hctz (Hydrochlorothiazide) 25 Mg Tab, 1 TAB PO DAILY 01/24/24 Temazepam (Restoril) 15 Mg Cp, 1 CAP PO QHSP 07/06/23 Albuterol Sulfate (Albuterol Sulfate) 0.083 % Neb, 1 PUFF NEB Q4H PRN for SHORTNESS OF BREATH 12/21/22 Albuterol Sulfate (Albuterol Sulfate Hfa) 108 Mcg/Act Aer, 108 MCG INH Q4HP PRN for SHORTNESS OF BREATH 12/21/22 Budesonide-Formoterol Fumarate (Budesonide/Formoterol Fum 160-4.5 Mcg/Act) 1 Aer Aer, 2 PUFF INH BID 12/21/22 Home Meds Home medications reviewed. Current Medications Current Medications Medications (Trade) Dose Ordered Sig/Milvia Route PRN Reason Start Time Stop Time Status Last Admin Acetaminophen (Ofirmev) 1,000 mg DAILY STAT IV 06/20/24 05:55 06/20/24 06:00 DC 06/20/24 06:04 Sodium Chloride 1,000 ml @ 60 mls/hr [id number] IV 06/20/24 07:15 06/20/24 09:06 Ondansetron HCl (Zofran) 4 mg Q4HP PRN IV NAUSEA / VOMITING 06/20/24 07:15 Nitroglycerin (Ntrostat Sublingual) 0.4 mg Q5MINP PRN SL FOR CHEST PAIN 06/20/24 07:15 Morphine Sulfate 2 mg Q30M PRN IV FOR CHEST PAIN 06/20/24 07:15 Furosemide (Lasix Injection) 40 mg DAILY IV 06/20/24 10:00 Albuterol (Ventolin Medneb) 2.5 mg Q4HR NEB 06/20/24 10:00 06/20/24 09:35 Albuterol (Ventolin Medneb) 2.5 mg Q6HPRN PRN NEB SHORTNESS OF BREATH 06/20/24 07:30 06/20/24 07:51 DC Ipratropium [place] (Atrovent Medneb) 0.5 mg Q6HR NEB 06/20/24 12:00 06/20/24 07:51 DC Ipratropium [place] (Atrovent Medneb) 0.5 mg Q4HPRN PRN NEB SHORTNESS OF BREATH 06/20/24 07:30 Methylprednisolone Sodium Succinate (Solu Medrol) 40 mg Q8HR IV 06/20/24 14:00 Pantoprazole Sodium (Protonix) 40 mg DAILY IV 06/20/24 10:00 Budesonide (Pulmicort) 0.5 mg BID NEB 06/20/24 10:00 06/20/24 09:35 Midazolam HCl 50 ml @ 1 mls/hr Q24H IV 06/20/24 07:45 06/20/24 08:38 Albuterol (Ventolin Medneb) 2.5 mg Q4HPRN PRN NEB SHORTNESS OF BREATH 06/20/24 08:00 Ipratropium [place] (Atrovent Medneb) 0.5 mg Q4HR NEB 06/20/24 10:00 06/20/24 09:35 Ceftriaxone Sodium 50 ml @ 100 mls/hr DAILY@09 IV 06/20/24 09:00 Azithromycin 250 ml @ 125 mls/hr DAILY IV 06/20/24 10:00 Propofol 100 ml @ 2.454 mls/ hr Q24H IV 06/20/24 08:30 06/20/24 08:55 DC Enoxaparin Sodium (Lovenox) 30 mg DAILY SC 06/20/24 10:00 UNV Famotidine (Pepcid Tablet) 20 mg DAILY PO 06/20/24 10:00 Fentanyl Citrate 250 ml @ 2.5 mls/hr Q24H IV 06/20/24 08:30 06/20/24 08:52 Enoxaparin Sodium (Lovenox) 40 mg DAILY SC 06/20/24 10:00 Norepinephrine Bitartrate 250 ml @ 3.75 mls/hr Q24H IV 06/20/24 09:01 06/20/24 09:16 Review of Systems Constitutional: No symptom reported Ears, Nose, & Throat: No symptom reported Eyes: No symptom reported Neurological: No symptoms reported Pulmonary/Respiratory: SOB Cardiovascular: No symptom reported Gastrointestinal: No symptom reported Genitourinary: No symptom reported Musculoskeletal: No symptom reported Skin: No symptom reported Psychiatric: No symptom reported Endocrine: No symptom reported Hemotologic/Lymphatic: No symptom reported Vital Signs Vital Signs Date Time Temp Pulse Resp B/P (MAP) Pulse Ox O2 Delivery O2 Flow Rate FiO2 06/20/24 10:00 101 18 93/67 (76) 93 06/20/24 09:15 98.0 50 98.0 06/20/24 07:34 Bi-Pap+ Physical Exam General Appearance: Chemically sedated. Mechanically ventilated. Withdrawn Head Exam: Normal inspection Neck Exam: Normal inspection. Normal alignment Pulmonary/Respiratory: Coarse bilateral breath sounds. Mechanically ventilated 35% FiO2 Cardiovascular/Chest: Regular rate and rhythm. S1, S2. Sinus rhythm. No murmurs. No JVD. Peripheral Pulses: 2+ Radial (R). 2+ Radial (L). 2+ Pedal (R). 2+ Pedal (L) Abdominal Exam: Normal bowel sounds. Soft. Ankle Exam: Negative ankle edema Lower extremities: Negative lower extremity edema Neuro/Mental Status: Chemically sedated. Withdrawn Thoughts/Psych: Unable to assess at this time Appearance: Withdrawn Skin Exam: Normal inspection. Normal color. Warm. Dry Labs/Diagnostic Data Labs Test 06/20/24 09:40 06/20/24 08:00 06/20/24 05:20 06/20/24 05:19 Range/Units Blood Gas Specimen Type Arterial Blood Gas Sample Site Left radial Blood Gas Patient Temperature 37.0 Arterial Blood Date Drawn [id number] Arterial Blood pH 7.266 L 7.350-7.450 Arterial Blood Partial Pressure CO2 53.5 H 35.0-48.0 mmHg Arterial Blood Partial Pressure O2 116.0 H 83.0-108.0 mmHg Arterial Blood HCO3 23.8 21.0-28.0 mmol/L Arterial Blood Oxygen Saturation 97.7 94.0-98.0 % Arterial Blood Base Excess -3.8 L -2.0-3.0 mmol/L Arterial Blood Oxyhemoglobin 95.6 94.0-98.0 % Arterial Blood Carboxyhemoglobin 1.6 H 0.5-1.5 % Arterial Blood Methemoglobin 0.5 0.0-1.5 % Godfrey Test Modified Blood Gas Total Hemoglobin 13.80 13.5-17.5 g/dL Blood Gas Set Respiration Rate 18.0 Blood Gas Modality Vent - ac FiO2 % 50.0 Blood Gas Tidal Volume 550.0 Blood Gas PEEP or CPAP 5.0 Troponin I High Sensitivity 405 *H </=54 ng/L Venous Blood pH 7.126 *L 7.320-7.430 Venous Blood pCO2 at Patient Temp 81.7 *H 38.0-54.0 mmHg Venous Blood pO2 at Patient Temp 119.0 H 23.0-48.0 mmHg Venous Blood HCO3 26.3 22.0-29.0 mmol/L Venous Blood Base Excess -5.1 L -2.0-3.0 mmol/L Blood Gas EPAP 5 Blood Gas IPAP 12 Blood Gas Critical Value Read Back Yes Blood Gas Notified Whom md es brooks Blood Gas Notified Time [id number] Blood Gas Notified By Labor Relations Or Personnel Negotiator jarrett mane White Blood Count 6.8 4.4-10.8 10^3/uL Red Blood Count 5.00 4.5-5.90 10^6/uL Hemoglobin 14.4 13.5-17.5 g/dL Hematocrit 44.0 41.0-53.0 % Mean Corpuscular Volume 88.0 80.0-100.0 fL Mean Corpuscular Hemoglobin 28.7 28.0-32.0 pg Mean Corpuscular Hemoglobin Concent 32.7 32.0-36.0 g/dL Red Cell Distribution Width 16.0 H 11.8-14.3 % Platelet Count 329 140-450 10^3/uL Mean Platelet Volume 6.8 L 6.9-10.8 fL Neutrophils (%) (Auto) 48.2 37.0-80.0 % Lymphocytes (%) (Auto) 34.4 10.0-50.0 % Monocytes (%) (Auto) 15.2 H 0.0-12.0 % Eosinophils (%) (Auto) 0.8 0.0-7.0 % Basophils (%) (Auto) 1.4 0.0-2.0 % Neutrophils # (Auto) 3.3 1.6-8.6 10 ^3/uL Lymphocytes # (Auto) 2.3 0.4-5.4 10 ^3/uL Monocytes # (Auto) 1.0 0-1.3 10 ^3/uL Eosinophils # (Auto) 0.1 0-0.8 10 ^3/uL Basophils # (Auto) 0.1 0-0.2 10 ^3/uL Nucleated Red Blood Cells 0.2 % D-Dimer, Quantitative 0.28 0.0-0.49 mg/L FEU Sodium Level 141 136-145 mmol/L Potassium Level 4.2 3.5-5.1 mmol/L Chloride Level 106 98-107 mmol/L Carbon Dioxide Level 30 20-31 mmol/L Anion Gap 5 5-15 Blood Urea Nitrogen 14 9-23 mg/dL Creatinine 1.04 0.700-1.30 mg/dL Glomerular Filtration Rate Calc 83 >90 mL/min BUN/Creatinine Ratio 13.5 10.0-20.0 Serum Glucose 129 H 74-106 mg/dL Lactic Acid Level 1.7 0.4-2.0 mmol/L Calcium Level 9.6 8.7-10.4 mg/dL B-Type Natriuretic Peptide 30.81 0-100 pg/mL Thyroid Stimulating Hormone (TSH) 10.08 H 0.55-4.78 uIU/mL Assessment Severe COPD exacerbation Acute on chronic hypoxic respiratory failure NSTEMI type 2 secondary to above Hx hypertension Dyslipidemia Prediabetes Nicotine dependence Plan/Recommendation (Dr. Lucia) The patient with acute on chronic hypoxic respiratory failure underwent a recent transthoracic echocardiogram revealing an LVEF of 50-55% with abnormal septal motion for which he underwent a cardiac catheterization and coronary angiogram without catheter based intervention given no severe epicardial coronary artery disease on 02/2024. We recommend to replenish electrolytes as necessary, influenza/COVID-19 swabs collection, pulmonary recommendations, and DVT/VTE prophylaxis. Thyroid work-up per primary care team. Of note, previous providers documented history of atrial fibrillation. There is no evidence of tachyarrhythmias during previous admissions on ECGs, TTEs, cardiac consultations neither the patient is on antiarrhythmics/DOAC therapy at home. This can be confirmed with the patient once off sedation. There is no further cardiac workup indicated at this time. We will sign off at this time. Kindly call if you need to re-consult. Thank you for allowing us to participate in this patient's care. Critical care time: 35 min. This medical document was created using an electronic medical record system with voice recognition software and computerized dictation system. Although this document has been carefully reviewed, there might still be some phonetic and typographical errors. Occasional wrong-word or ``sound-alike substitutions may have occurred due to the inherent limitations of voice recognition software. These areas are purely typographical due to imperfections of the software programs and do not reflect any compromise in the patient's medical care. Please read the chart carefully and recognize, using context, where these substitutions have occurred. Plan discussed with: Other NYHA Physical activity limitations: NA Date of Service: Jun 20, 2024 Billing Provider: NIKOLAI LUCIA Sr., MD Cardiology Common Codes: [id number] CARE 30-74 MIN MOOK OROZCO FLYING I INSTRUCTOR Jun 20, 2024 10:44
[2024-06-20] MEDS: PANTOPRAZOLE 40 MG/10 ML VIAL INJ IV SCH (11:13)
[2024-06-20 11:33] LABS: Free T4 (Free Thyroxine) 0.95 ng/dL (0.89-1.76); T3 Total 1.07 ng/mL (0.60-1.81)
[2024-06-20] MEDS ORDERED: IPRATROPIUM BROM 0.5 MG/2.5ML INH SOL NEB SCH (12:00)
[2024-06-20 12:39] LABS: Urine Bacteria None Seen /hpf (None Seen)
[2024-06-20 12:40] LABS: COVID19 ANTIGEN SOFIA FIA NEGATIVE (NEGATIVE); Rapid Influenza A Negative (Negative); Rapid Influenza B Negative (Negative)
[2024-06-20 12:44] LABS: Urine Blood Negative /uL (Negative); Urine Clarity Clear (Clear); Urine Color Yellow (Yellow); Urine Hyaline Cast FEW /lpf (0 - 2); Urine Mucus FEW (None Seen); Urine Protein, UAD TRACE (Negative); Urine Specific Gravity 1.026 (1.001-1.035); Urine Squamous Epithelial Cell FEW /hpf (<5); Urine Urobilinogen Normal (Negative); Urine WBC 3 /HPF (0-3); Urine pH 5.5 (5.0-9.0)
[2024-06-20] MEDS: AZITHROMYCIN 500MG/ 250ML 250 ML IV SCH (13:55)
[2024-06-20] MEDS: methylPREDNISolone SOD SUCC 40 MG/ML VL IV SCH (14:02)
[2024-06-20] MEDS: POTASSIUM CHL 20MEQ/100ML 100 ML IV SCH (14:25)
--- NOTE | 2024-06-20 16:38 | DVHPN2 ---
Subjective Seen and examined at bedside, patient intubated on 35% Fio2 PEEP 5. Patient has COPD and was in Resp Distress and subsequently had to be intubated. Changes from previous H/P or p: No Changes Eyes: No Pain, No Vision change, No Conjunctivae inflammation, No Eyelid inflammation, No Other, No Redness ENT: No Ear pain, No Ear discharge, No Nose pain, No Nose discharge, No Nose congestion, No Mouth pain, No Mouth swelling, No Throat pain, No Throat swelling, No Other Cardiovascular: No Chest Pain, No Palpitations, No Orthopnea, No Paroxysmal Noc. Dyspnea, No Edema, No Lt Headedness, No Other Respiratory: No Cough, No Dry, No SOB with excertion, No Wheezing, No Hemoptysis, No Pleuritic Pain, No Sputum, No Other Gastrointestinal: No Nausea, No Vomiting, No Abdominal Pain, No Diarrhea, No Constipation, No Melena, No Hematochezia, No Other Genitourinary: No Dysuria, No Frequency, No Incontinence, No Hematuria, No Retention, No Other Musculoskeletal: No other, No neck pain, No shoulder pain, No arm pain, No back pain, No hand pain, No leg pain, No foot pain Skin: No Rash, No Lesions, No Jaundice, No Bruising, No Other Objective Vitals Vital Signs Date Time Temp Pulse Resp B/P (MAP) Pulse Ox O2 Delivery O2 Flow Rate FiO2 06/20/24 15:45 97/70 06/20/24 15:45 98.2 88 18 95 98.2 06/20/24 15:41 35 06/20/24 07:34 Bi-Pap+ Exam Gen: in bed intubated Cvs: N S1/S2, RRR Resp: BLAE, Wheezing Project Specialist: Sedated Medications Current Medications Medications Dose Ordered Sig/Milvia Route Start Time Stop Time Status Last Admin Dose Admin Sodium Chloride 1,000 ml @ 60 mls/hr [id number] IV 06/20/24 07:15 06/20/24 09:06 60 MLS/HR Ondansetron HCl 4 mg Q4HP PRN IV 06/20/24 07:15 Nitroglycerin 0.4 mg Q5MINP PRN SL 06/20/24 07:15 Morphine Sulfate 2 mg Q30M PRN IV 06/20/24 07:15 Furosemide 40 mg DAILY IV 06/20/24 10:00 06/20/24 10:37 40 MG Albuterol 2.5 mg Q4HR NEB 06/20/24 10:00 06/20/24 13:33 2.5 MG Ipratropium [place] 0.5 mg Q4HPRN PRN NEB 06/20/24 07:30 Methylprednisolone Sodium Succinate 40 mg Q8HR IV 06/20/24 14:00 06/20/24 14:02 40 MG Pantoprazole Sodium 40 mg DAILY IV 06/20/24 10:00 06/20/24 11:13 40 MG Budesonide 0.5 mg BID NEB 06/20/24 10:00 06/20/24 09:35 0.5 MG Midazolam HCl 50 ml @ 1 mls/hr Q24H IV 06/20/24 07:45 06/20/24 08:38 1 MLS/HR Albuterol 2.5 mg Q4HPRN PRN [facility] 06/20/24 08:00 Ipratropium [place] 0.5 mg Q4HR [facility] 06/20/24 10:00 06/20/24 13:33 0.5 MG Ceftriaxone Sodium 50 ml @ 100 mls/hr DAILY@09 IV 06/20/24 09:00 Azithromycin 250 ml @ 125 mls/hr DAILY IV 06/20/24 10:00 06/20/24 13:55 125 MLS/HR Enoxaparin Sodium 30 mg DAILY SC 06/20/24 10:00 UNV Famotidine 20 mg DAILY PO 06/20/24 10:00 Fentanyl Citrate 250 ml @ 2.5 mls/hr Q24H IV 06/20/24 08:30 06/20/24 08:52 2.5 MLS/HR Enoxaparin Sodium 40 mg DAILY SC 06/20/24 10:00 Norepinephrine Bitartrate 250 ml @ 3.75 mls/hr Q24H IV 06/20/24 09:01 06/20/24 09:16 3.75 MLS/HR Laboratory Results Laboratory Tests 06/20/24 05:19 Chemistry Test 06/20/24 05:19 Calcium Level 9.6 mg/dL (8.7-10.4) Coagulation Test 06/20/24 05:19 D-Dimer, Quantitative 0.28 mg/L FEU (0.0-0.49) Cardiac Markers Test 06/20/24 05:19 B-Type Natriuretic Peptide 30.81 pg/mL (0-100) HgA1c, TSH Test 06/20/24 05:19 Thyroid Stimulating Hormone (TSH) 10.08 uIU/mL (0.55-4.78) H Urinalysis Test 06/20/24 11:23 Urine Color Yellow (Yellow) Urine Clarity Clear (Clear) Urine pH 5.5 (5.0-9.0) Urine Specific [place] 1.026 (1.001-1.035) Urine Protein Trace (Negative) H Urine Ketones Negative (Negative) Urine Blood Negative /uL (Negative) Urine Nitrite Negative (Negative) Urine Bilirubin Negative (Negative) Urine Urobilinogen Normal mg/dL (Negative) Urine Leukocyte Esterase Negative /uL (Negative) Urine RBC 1 /hpf (0 - 3) Urine Microscopic WBC 3 /HPF (0-3) Urine Squamous Epithelial Cells Few /hpf (<5) Urine Bacteria None seen /hpf (None Seen) Urine Hyaline Casts Few /lpf (0 - 2) Urine Mucus Few (None Seen) Urine Glucose Normal mg/dL (Normal) Blood Gas Results Test 06/20/24 05:20 06/20/24 09:40 FiO2 % 50.0 50.0 Arterial Blood pH 7.266 (7.350-7.450) Assessment/Plan Assessment/Plan # Acute Resp Failure - Intubated # COPD Exacerbation - Solumedrol - Bronchodilators # Possible Bronchopneumonia - Zithromax and Rocephin # A-Fibb - Cont Meds # NSTEMI-II Critical care time 90 mins I tried calling the patients sister Vicky, [employer] is full unable to leave a message Plan discussed with: Other My Orders Orders - MANI ESCUDERO MD Procedure Category Date Status Time Prothrombin Time W/ LAB 06/21/24 Verified INR 04:00 Partial LAB 06/21/24 Verified Thromboplastin Time 04:00 * Cardiology Consult CONS 06/20/24 Transmitted 16:29 Date of Service: Jun 20, 2024 Billing Provider: MANI ESCUDERO MD Common Visit Codes: [id number] CARE 30-74 MIN, [id number] CARE-EACH +30MIN MANI ESCUDERO MD Jun 20, 2024 16:38
[2024-06-21] VITALS (14 sets, daily range): BP systolic 89–129; BP diastolic 60–83; PULSE 63–90; RESP 18; O2SAT 94–99
[2024-06-21 03:21] LABS: Basophils # (auto) 0 10 ^3/uL (0-0.2); Basophils % (auto) 0.1 % (0.0-2.0); Eosinophils # (auto) 0 10 ^3/uL (0-0.8); Hematocrit 38.1 % (41.0-53.0); Hemoglobin 12.5 g/dL (13.5-17.5); Lymphocytes # (auto) 0.7 10 ^3/uL (0.4-5.4); Lymphocytes % (auto) 16.3 % (10.0-50.0); Mean Corpuscular Hemoglobin 29.5 pg (28.0-32.0); Mean Corpuscular Hgb Conc. 32.9 g/dL (32.0-36.0); Mean Corpuscular Volume 89.6 fL (80.0-100.0); Monocytes # (auto) 0.4 10 ^3/uL (0-1.3); Monocytes % (auto) 8.8 % (0.0-12.0); Neutrophils # (auto) 3.2 10 ^3/uL (1.6-8.6); Neutrophils % (auto) 74.8 % (37.0-80.0); Nucleated Red Blood Cells % 0.1 %; Platelet Count (auto) 311 10^3/uL (140-450); Red Blood Cells 4.25 10^6/uL (4.5-5.90); Red Cell Distribution Width 16.9 % (11.8-14.3); White Blood Cell 4.2 10^3/uL (4.4-10.8)
[2024-06-21 03:36] LABS: Potassium 4.1 mmol/L (3.5-5.1); Sodium 142 mmol/L (136-145)
[2024-06-21 03:37] LABS: Anion Gap 9 (5-15); Carbon Dioxide 23 mmol/L (20-31)
[2024-06-21 03:42] LABS: BUN/Creatinine Ratio 23.3 (10.0-20.0)
[2024-06-21 03:46] LABS: Blood Urea Nitrogen 27 mg/dL (9-23); Chloride 110 mmol/L (98-107); Glucose 152 mg/dL (74-106)
--- NOTE | 2024-06-21 04:51 | DVH ---
CHEST RADIOGRAPH Indication: intubated Technique: Single frontal view of the chest was obtained Comparison: XY CHEST PORTABLE on DOS: 06/20/24 FINDINGS: Lines and Tubes: There is a left central venous catheter with its tip terminating in the superior rambo a cava. The endotracheal tube terminates 7.9 cm above the ashley. The enteric tube courses below the left hemidiaphragm and the tip extends outside the field of view. Lungs: No focal consolidation. Pleura: No effusion. No pneumothorax. Cardiomediastinal contours: Unremarkable Bones: No acute osseous abnormality. IMPRESSION: 1. Appropriate position of the support lines and tubes. 2. No acute cardiopulmonary disease.
[2024-06-21 05:55] LABS: Basophils # (auto) 0 10 ^3/uL (0-0.2); Basophils % (auto) 0.1 % (0.0-2.0); Eosinophils # (auto) 0 10 ^3/uL (0-0.8); Hematocrit 35.8 % (41.0-53.0); Hemoglobin 11.9 g/dL (13.5-17.5); Lymphocytes # (auto) 0.7 10 ^3/uL (0.4-5.4); Lymphocytes % (auto) 15.9 % (10.0-50.0); Mean Corpuscular Hemoglobin 29.1 pg (28.0-32.0); Mean Corpuscular Hgb Conc. 33.3 g/dL (32.0-36.0); Mean Corpuscular Volume 87.5 fL (80.0-100.0); Monocytes # (auto) 0.3 10 ^3/uL (0-1.3); Monocytes % (auto) 8.3 % (0.0-12.0); Neutrophils # (auto) 3.1 10 ^3/uL (1.6-8.6); Neutrophils % (auto) 75.7 % (37.0-80.0); Nucleated Red Blood Cells % 0.1 %; Platelet Count (auto) 316 10^3/uL (140-450); Red Blood Cells 4.09 10^6/uL (4.5-5.90); Red Cell Distribution Width 15.7 % (11.8-14.3); White Blood Cell 4.1 10^3/uL (4.4-10.8)
[2024-06-21 06:06] LABS: INR 0.9 (0.9-1.15); Partial Thromboplastin Time 28.2 SEC (24.5-34.5); Prothrombin Time 9.6 sec (9.3-11.8)
[2024-06-21 06:14] LABS: Alanine Aminotransferase 38 U/L (7-40); Albumin 4.1 g/dL (3.2-4.8); Alkaline Phosphatase 50 U/L (46-116); Anion Gap 8 (5-15); Aspartate Aminotransferase 21 U/L (13-40); BUN/Creatinine Ratio 26.7 (10.0-20.0); Bilirubin, Total 0.3 mg/dL (0.2-1.0); Calcium 9.1 mg/dL (8.7-10.4); Carbon Dioxide 26 mmol/L (20-31); Potassium 3.9 mmol/L (3.5-5.1); Sodium 143 mmol/L (136-145); Total Protein 6.1 g/dL (5.7-8.2)
[2024-06-21 06:20] LABS: Blood Urea Nitrogen 31 mg/dL (9-23); Chloride 109 mmol/L (98-107); Glucose 160 mg/dL (74-106)
[2024-06-21 06:37] LABS: Base Excess -2.3 mmol/L (-2.0-3.0)
--- NOTE | 2024-06-21 14:22 | DVHPN2 ---
Subjective Patient chemically sedated Reviewed: Care Plan, H&P, Labs, Medications Changes from previous H/P or p: No Changes General: Per HPI Eyes: No Pain, No Vision change, No Conjunctivae inflammation, No Eyelid inflammation, No Other, No Redness ENT: No Ear pain, No Ear discharge, No Nose pain, No Nose discharge, No Nose congestion, No Mouth pain, No Mouth swelling, No Throat pain, No Throat swelling, No Other Cardiovascular: No Chest Pain, No Palpitations, No Orthopnea, No Paroxysmal Noc. Dyspnea, No Edema, No Lt Headedness, No Other Respiratory: No Cough, No Dry; Shortness of breath; No SOB with excertion, No Wheezing, No Hemoptysis, No Pleuritic Pain, No Sputum, No Other Gastrointestinal: No Nausea, No Vomiting, No Abdominal Pain, No Diarrhea, No Constipation, No Melena, No Hematochezia, No Other Genitourinary: No Dysuria, No Frequency, No Incontinence, No Hematuria, No Retention, No Other Musculoskeletal: No other, No neck pain, No shoulder pain, No arm pain, No back pain, No hand pain, No leg pain, No foot pain Skin: No Rash, No Lesions, No Jaundice, No Bruising, No Other Objective Vitals Vital Signs Date Time Temp Pulse Resp B/P (MAP) Pulse Ox O2 Delivery O2 Flow Rate FiO2 06/21/24 14:08 79 18 89/60 (70) 95 30 06/21/24 12:00 98.4 98.4 06/21/24 10:23 Mechanical Ventilator+ Intake/Output Intake and Output 06/21/24 07:00 Intake Total 1163.75 ml Output Total 320 ml Balance 843.75 ml Intake IV Total 1163.75 ml Output Urine Total 320 ml General Appearance: mild distress, Other (Intubated and sedated) HEENT: Atraumatic, PERRLA Lungs: Clear to auscultation, Normal air movement Cardiovascular: Normal S1, Normal S2 Abdomen: Normal bowel sounds, Soft, No tenderness Musculoskeletal: Normal sensory function, Normal motor function Neuro: Normal gait, Normal speech Psych/Mental Status: Mental status NL, Mood NL Medications Current Medications Medications Dose Ordered Sig/Milvia Route Start Time Stop Time Status Last Admin Dose Admin Ondansetron HCl 4 mg Q4HP PRN IV 06/20/24 07:15 Nitroglycerin 0.4 mg Q5MINP PRN 06/20/24 07:15 Morphine Sulfate 2 mg Q30M PRN IV 06/20/24 07:15 Furosemide 40 mg DAILY IV 06/20/24 10:00 06/21/24 10:37 40 MG Albuterol 2.5 mg Q4HR [facility] 06/20/24 10:00 06/21/24 14:08 2.5 MG Ipratropium [place] 0.5 mg Q4HPRN PRN [facility] 06/20/24 07:30 Methylprednisolone Sodium Succinate 40 mg Q8HR IV 06/20/24 14:00 06/21/24 14:09 40 MG Pantoprazole Sodium 40 mg DAILY IV 06/20/24 10:00 06/21/24 10:33 40 MG Budesonide 0.5 mg BID [facility] 06/20/24 10:00 06/21/24 06:15 0.5 MG Midazolam HCl 50 ml @ 1 mls/hr Q24H IV 06/20/24 07:45 06/21/24 10:52 15 MLS/HR Albuterol 2.5 mg Q4HPRN PRN [facility] 06/20/24 08:00 Ipratropium [place] 0.5 mg Q4HR [facility] 06/20/24 10:00 06/21/24 14:08 0.5 MG Ceftriaxone Sodium 50 ml @ 100 mls/hr DAILY@09 IV 06/20/24 09:00 06/21/24 09:20 100 MLS/HR Azithromycin 250 ml @ 125 mls/hr DAILY IV 06/20/24 10:00 06/21/24 10:37 125 MLS/HR Enoxaparin Sodium 30 mg DAILY SC 06/20/24 10:00 UNV Famotidine 20 mg DAILY PO 06/20/24 10:00 06/21/24 10:38 20 MG Fentanyl Citrate 250 ml @ 2.5 mls/hr Q24H IV 06/20/24 08:30 06/21/24 10:53 12.5 MLS/HR Enoxaparin Sodium 40 mg DAILY SC 06/20/24 10:00 06/21/24 10:34 40 MG Norepinephrine Bitartrate 250 ml @ 3.75 mls/hr Q24H IV 06/20/24 09:01 06/20/24 09:16 3.75 MLS/HR Laboratory Results Laboratory Tests 06/21/24 05:21 Chemistry Test 06/21/24 03:06 06/21/24 05:21 Calcium Level 9.0 mg/dL (8.7-10.4) 9.1 mg/dL (8.7-10.4) Albumin 4.1 g/dL (3.2-4.8) Total Protein 6.1 g/dL (5.7-8.2) Coagulation Test 06/21/24 05:21 Prothrombin Time 9.6 sec (9.3-11.8) Prothrombin Time INR 0.90 (0.9-1.15) Activated Partial Thromboplast Time 28.2 SEC (24.5-34.5) LFT Test 06/21/24 05:21 Alanine Aminotransferase (ALT) 38 U/L (7-40) Alkaline Phosphatase 50 U/L (46-116) Aspartate Amino Transferase (AST) 21 U/L (13-40) Total Bilirubin 0.3 mg/dL (0.2-1.0) Urinalysis Test 06/20/24 11:23 Urine Color Yellow (Yellow) Urine Clarity Clear (Clear) Urine pH 5.5 (5.0-9.0) Urine Specific [place] 1.026 (1.001-1.035) Urine Protein Trace (Negative) H Urine Ketones Negative (Negative) Urine Blood Negative /uL (Negative) Urine Nitrite Negative (Negative) Urine Bilirubin Negative (Negative) Urine Urobilinogen Normal mg/dL (Negative) Urine Leukocyte Esterase Negative /uL (Negative) Urine RBC 1 /hpf (0 - 3) Urine Microscopic WBC 3 /HPF (0-3) Urine Squamous Epithelial Cells Few /hpf (<5) Urine Bacteria None seen /hpf (None Seen) Urine Hyaline Casts Few /lpf (0 - 2) Urine Mucus Few (None Seen) Urine Glucose Normal mg/dL (Normal) Blood Gas Results Test 06/21/24 06:30 Arterial Blood pH 7.328 (7.350-7.450) FiO2 % 35.0 Microbiology Microbiology Date/Time Source Procedure Growth Status 06/20/24 08:23 Sputum Gram Stain - Final Resulted 06/20/24 08:23 Sputum Respiratory Culture - Preliminary Resulted 06/20/24 05:19 Blood Blood Culture - Preliminary NO GROWTH AFTER 24 HOURS OF INCUBATION. Resulted Labs and/or images reviewed: Labs reviewed by me, Image(s) reviewed by me Assessment/Plan Assessment/Plan Impression: -acute on chronic hypoxic respiratory failure, now on mechanical ventilation -NSTEMI type 2 -rule out community-acquired pneumonia, Gram-positive/Gram-negative etiology -COPD with exacerbation -asthma -nicotine dependence -primary hypertension -atrial fibrillation Plan: -continue current ventilator settings -CPAP trial in a.m. -continue current sedation -continue antibiotic therapy -PUD, DVT prophylaxis -repeat labs, chest x-ray, ABG in a.m. Critical care time spent with patient discussing and formulating plan of care: 40 minutes. This does not include time spent performing procedures. This medical document was created using an electronic medical record system with [employer] dictation system. Although this document has been carefully reviewed, there may still be some phonetic and typographical errors. These areas are purely typographical due to imperfections of the software programs, and do not reflect any compromise in the patient's medical care. Plan discussed with: Patient, Other (RN) My Orders Orders - ESSENCE FONG NP Procedure Category Date Status Time Cpap/Sed Vacation Med ORDERS 06/21/24 Transmitted Weaning 13:52 Cpap Trial For Am ORDERS 06/21/24 Transmitted 13:52 Cpap/Sed Vacation Med ORDERS 06/21/24 Transmitted Weaning 13:52 Basic Metabolic Panel LAB 06/22/24 Verified 04:00 Chest Portable XY 06/22/24 Logged 04:00 Abg W/ Co-Ox RT 06/22/24 Logged 04:00 Date of Service: Jun 21, 2024 Billing Provider: ESSENCE FONG NP Common Visit Codes: [id number] CARE 30-74 MIN ESSENCE FONG NP Jun 21, 2024 14:22
[2024-06-22] VITALS (76 sets, daily range): BP systolic 98–132; BP diastolic 64–86; PULSE 57–96; RESP 13–19; TEMP 70.2–99.1; O2SAT 86–100
--- NOTE | 2024-06-22 04:51 | DVH ---
CHEST RADIOGRAPH Indication: line placement Technique: Single frontal view of the chest was obtained COMPARISON: XY CHEST PORTABLE on DOS: 06/21/24, XY CHEST PORTABLE on DOS: 06/20/24, XY CHEST PORTABLE o n DOS: 06/20/24, XY CHEST PORTABLE on DOS: 06/20/24, XY CHEST PORTABLE on DOS: 06/09/24 FINDINGS: Lines and Tubes: Endotracheal tube and enteric catheter in satisfactory position. Left central venou s catheter overlies the course of the brachiocephalic vein. Lungs: Congestion Pleura: No effusion. No pneumothorax. Cardiomediastinal contours: Unremarkable Bones: Unremarkable IMPRESSION: Left central venous catheter tip at the junction of the brachiocephalic / SVC.
[2024-06-22 06:55] LABS: Anion Gap 7 (5-15); Carbon Dioxide 29 mmol/L (20-31)
[2024-06-22 07:01] LABS: BUN/Creatinine Ratio 49.1 (10.0-20.0)
[2024-06-22 07:02] LABS: Blood Urea Nitrogen 52 mg/dL (9-23); Chloride 111 mmol/L (98-107); Glucose 149 mg/dL (74-106); Sodium 147 mmol/L (136-145)
[2024-06-22 08:14] LABS: Base Excess 0.9 mmol/L (-2.0-3.0)
--- NOTE | 2024-06-22 09:43 | DVHPN2 ---
Subjective Patient chemically sedated Reviewed: Care Plan, H&P, Labs, Medications Changes from previous H/P or p: No Changes General: Per HPI Eyes: No Pain, No Vision change, No Conjunctivae inflammation, No Eyelid inflammation, No Other, No Redness ENT: No Ear pain, No Ear discharge, No Nose pain, No Nose discharge, No Nose congestion, No Mouth pain, No Mouth swelling, No Throat pain, No Throat swelling, No Other Cardiovascular: No Chest Pain, No Palpitations, No Orthopnea, No Paroxysmal Noc. Dyspnea, No Edema, No Lt Headedness, No Other Respiratory: No Cough, No Dry; Shortness of breath; No SOB with excertion, No Wheezing, No Hemoptysis, No Pleuritic Pain, No Sputum, No Other Gastrointestinal: No Nausea, No Vomiting, No Abdominal Pain, No Diarrhea, No Constipation, No Melena, No Hematochezia, No Other Genitourinary: No Dysuria, No Frequency, No Incontinence, No Hematuria, No Retention, No Other Musculoskeletal: No other, No neck pain, No shoulder pain, No arm pain, No back pain, No hand pain, No leg pain, No foot pain Skin: No Rash, No Lesions, No Jaundice, No Bruising, No Other Objective Vitals Vital Signs Date Time Temp Pulse Resp B/P (MAP) Pulse Ox O2 Delivery O2 Flow Rate FiO2 06/22/24 08:00 97.2 68 14 107/77 (87) 95 97.2 06/22/24 07:51 30 06/22/24 07:47 Mechanical Ventilator+ Intake/Output Intake and Output 06/22/24 07:00 Intake Total 534.0625 ml Output Total 800 ml Balance -265.9375 ml Intake IV Total 534.0625 ml Output Urine Total 800 ml General Appearance: mild distress, Other (Intubated and sedated) HEENT: Atraumatic, PERRLA Lungs: Clear to auscultation, Normal air movement Cardiovascular: Normal S1, Normal S2 Abdomen: Normal bowel sounds, Soft, No tenderness Musculoskeletal: Normal sensory function, Normal motor function Neuro: Normal gait, Normal speech Psych/Mental Status: Mental status NL, Mood NL Medications Current Medications Medications Dose Ordered Sig/Milvia Route Start Time Stop Time Status Last Admin Dose Admin Ondansetron HCl 4 mg Q4HP PRN IV 06/20/24 07:15 Nitroglycerin 0.4 mg Q5MINP PRN SL 06/20/24 07:15 Morphine Sulfate 2 mg Q30M PRN IV 06/20/24 07:15 Furosemide 40 mg DAILY IV 06/20/24 10:00 06/21/24 10:37 40 MG Albuterol 2.5 mg Q4HR NEB 06/20/24 10:00 06/22/24 06:29 2.5 MG Ipratropium [place] 0.5 mg Q4HPRN PRN NEB 06/20/24 07:30 Methylprednisolone Sodium Succinate 40 mg Q8HR IV 06/20/24 14:00 06/22/24 06:43 40 MG Pantoprazole Sodium 40 mg DAILY IV 06/20/24 10:00 06/21/24 10:33 40 MG Budesonide 0.5 mg BID NEB 06/20/24 10:00 06/22/24 06:29 0.5 MG Midazolam HCl 50 ml @ 1 mls/hr Q24H IV 06/20/24 07:45 06/21/24 15:22 15 MLS/HR Albuterol 2.5 mg Q4HPRN PRN [facility] 06/20/24 08:00 Ipratropium [place] 0.5 mg Q4HR [facility] 06/20/24 10:00 06/22/24 06:29 0.5 MG Ceftriaxone Sodium 50 ml @ 100 mls/hr DAILY@09 IV 06/20/24 09:00 06/21/24 09:20 100 MLS/HR Azithromycin 250 ml @ 125 mls/hr DAILY IV 06/20/24 10:00 06/21/24 10:37 125 MLS/HR Enoxaparin Sodium 30 mg DAILY SC 06/20/24 10:00 UNV Famotidine 20 mg DAILY PO 06/20/24 10:00 06/21/24 10:38 20 MG Fentanyl Citrate 250 ml @ 2.5 mls/hr Q24H IV 06/20/24 08:30 06/21/24 10:53 12.5 MLS/HR Enoxaparin Sodium 40 mg DAILY SC 06/20/24 10:00 06/21/24 10:34 40 MG Norepinephrine Bitartrate 250 ml @ 3.75 mls/hr Q24H IV 06/20/24 09:01 06/20/24 09:16 3.75 MLS/HR Laboratory Results Laboratory Tests 06/21/24 05:21 06/22/24 06:12 Chemistry Test 06/22/24 06:12 Calcium Level 9.0 mg/dL (8.7-10.4) Urinalysis Test 06/20/24 11:23 Urine Color Yellow (Yellow) Urine Clarity Clear (Clear) Urine pH 5.5 (5.0-9.0) Urine Specific [place] 1.026 (1.001-1.035) Urine Protein Trace (Negative) H Urine Ketones Negative (Negative) Urine Blood Negative /uL (Negative) Urine Nitrite Negative (Negative) Urine Bilirubin Negative (Negative) Urine Urobilinogen Normal mg/dL (Negative) Urine Leukocyte Esterase Negative /uL (Negative) Urine RBC 1 /hpf (0 - 3) Urine Microscopic WBC 3 /HPF (0-3) Urine Squamous Epithelial Cells Few /hpf (<5) Urine Bacteria None seen /hpf (None Seen) Urine Hyaline Casts Few /lpf (0 - 2) Urine Mucus Few (None Seen) Urine Glucose Normal mg/dL (Normal) Blood Gas Results Test 06/22/24 08:00 Arterial Blood pH 7.393 (7.350-7.450) FiO2 % 30.0 Microbiology Microbiology Date/Time Source Procedure Growth Status 06/20/24 08:23 Sputum Gram Stain - Final Complete 06/20/24 08:23 Sputum Respiratory Culture - Final Complete 06/20/24 05:19 Blood Blood Culture - Preliminary NO GROWTH AFTER 48 HOURS OF INCUBATION. Resulted Labs and/or images reviewed: Labs reviewed by me, Image(s) reviewed by me Assessment/Plan Assessment/Plan Impression: -acute on chronic hypoxic respiratory failure, now on mechanical ventilation -NSTEMI type 2 -rule out community-acquired pneumonia, Gram-positive/Gram-negative etiology -COPD with exacerbation -asthma -nicotine dependence -primary hypertension -atrial fibrillation Plan: Events: Discussed case with primary nurse. Patient will have spontaneous breathing trial after sedation is weaned. -continue current ventilator settings -CPAP trial in a.m. -weaned current sedation -continue antibiotic therapy -PUD, DVT prophylaxis -repeat labs in a.m. Critical care time spent with patient discussing and formulating plan of care: 40 minutes. This does not include time spent performing procedures. This medical document was created using an electronic medical record system with Dragon computerized dictation system. Although this document has been carefully reviewed, there may still be some phonetic and typographical errors. These areas are purely typographical due to imperfections of the software programs, and do not reflect any compromise in the patient's medical care. Plan discussed with: Patient, Other (RN) My Orders Orders - ESSENCE FONG NP Procedure Category Date Status Time Cpap/Sed Vacation Med ORDERS 06/21/24 Transmitted Weaning 13:52 Cpap Trial For Am ORDERS 06/21/24 Transmitted 13:52 Cpap/Sed Vacation Med ORDERS 06/21/24 Transmitted Weaning 13:52 Chest Portable XY 06/22/24 Resulted 04:00 Abg W/ Co-Ox RT 06/22/24 Logged 04:00 Basic Metabolic Panel LAB 06/23/24 Verified 04:00 Complete Blood Count LAB 06/23/24 Verified 04:00 Date of Service: Jun 22, 2024 Billing Provider: ESSENCE FONG NP Common Visit Codes: [id number] CARE 30-74 MIN ESSENCE FONG NP Jun 22, 2024 09:43
[2024-06-22] MEDS: PROPOFOL 100 ML IV SCH (15:45)
--- NOTE | 2024-06-22 18:44 | DVHINCON2 ---
Date of service: Jun 22, 2024 Referring Physician Elpidio Espitia NP Reason for Consultation Acute hypoxic respiratory failure requiring mechanical ventilator History of Present Illness A 58-year-old man with past medical history of COPD, asthma, hypertension, AFib, pneumonia, and nicotine dependence who presented to the ED on 06/20/24 with complaint of shortness of breath x1 day. Patient reported that the shortness of breath woke him up from sleep around 430 a.m. on day of presentation. Per patient, he has had prior COPD exacerbations. Upon examination in ED, patient was working extremely hard to breathe, on BiPAP, and required immediate intubation and placement on mechanical ventilator. Patient was admitted for further care and pulmonary consultation is requested for evaluation and management due to the above findings. Review of Systems: Unable to obtain d/t intubated status. Past Medical History: Hypertension, COPD, asthma, AFib, pneumonia, nicotine dependence, and chronic back pain. Past Surgical History: Appendectomy Medications: Reviewed. Allergies: No known drug allergies. Family History: Chronic obstructive pulmonary disease Cardiovascular disease Hypertension Cancer Social History: Current smoker, smokes 2 packs per day No alcohol or illicit drug use. Family History: Cardiovascular disease G8 MOTHER, Chronic obstructive pulmonary disease G8 MOTHER, G8 FATHER, FH: cancer G8 FATHER, Hypertension G8 SISTER Allergies: Coded Allergies: NO KNOWN ALLERGIES (Unverified , 12/20/22) Home Meds Active Scripts Levofloxacin Hemihydrate (LEVAQUIN 500 MG) 500 Mg Tab, 1 TAB PO DAILY for 5 Days, #5 TAB Prov:ELPIDIO ESPITIA [employer] TR[employer]IVER 06/09/24 Prednisone (Prednisone) 20 Mg Tab, 20 MG PO DAILY for 5 Days, #5 MG Prov:ELPIDIO ESPITIA [employer] 06/09/24 Famotidine (PEPCID TABLET) 20 Mg Tb, 1 TAB PO DAILY for 10 Days, #10 TAB 5 Refills Prov:JOHNNY MURRY MD 06/04/24 Azithromycin (Zithromax Z-Loc) 250 Mg Tab, 250 MG PO BID for 3 Days, #6 TAB Prov:MERLIN YING RESIDENT 03/20/24 Acetaminophen (Acetaminophen) 325 Mg Tab, 650 MG PO Q6HP PRN for 10 Days, #80 TAB Prov:FELECIA MARTINEZ RESIDENT 01/25/24 Reported Medications Hctz (Hydrochlorothiazide) 25 Mg Tab, 1 TAB PO DAILY 01/24/24 Temazepam (Restoril) 15 Mg Cp, 1 CAP PO QHSP 07/06/23 Albuterol Sulfate (Albuterol Sulfate) 0.083 % Neb, 1 PUFF NEB Q4H PRN for SHORTNESS OF BREATH 12/21/22 Albuterol Sulfate (Albuterol Sulfate Hfa) 108 Mcg/Act Aer, 108 MCG INH Q4HP PRN for SHORTNESS OF BREATH 12/21/22 Budesonide-Formoterol Fumarate (Budesonide/Formoterol Fum 160-4.5 Mcg/Act) 1 Aer Aer, 2 PUFF INH BID 12/21/22 Current Medications Current Medications Medications (Trade) Dose Ordered Sig/Milvia Route PRN Reason Start Time Stop Time Status Last Admin Dexmedetomidine HCl 400 mcg/ Dextrose 100 ml @ 4.09 mls/hr Q24H IV 06/22/24 10:00 Propofol 100 ml @ 2.454 mls/ hr Q24H IV 06/22/24 15:45 Vital Signs Vital Signs Date Time Temp Pulse Resp B/P (MAP) Pulse Ox O2 Delivery O2 Flow Rate FiO2 06/22/24 18:01 103/69 06/22/24 18:00 73 06/22/24 18:00 30 06/22/24 18:00 18 99 Mechanical Ventilator+ 06/22/24 16:15 99.1 210.4 Physical Exam Gen.: Patient lying in bed in medical ICU. Sedated, intubated on mechanical ventilator. Head: Normocephalic, atraumatic. Eyes: PERRLA. Ears: Normal external anatomy. Throat: Endotracheal tube and orogastric tube in place. Neck: Supple, trachea midline. Chest: Transmitted breath sounds bilaterally. Decreased air entry bilaterally. No wheezing. Bibasilar crackles. Cardiovascular: Positive S1, positive S2. Regular rate and rhythm. Abdomen: Positive bowel sounds in all 4 quadrants. Soft, nontender, nondistended. : Bloom in place. Normal external genitalia. Rectal: Deferred. Skin: Warm, dry. Intact. Extremities: 2+ radial pulses bilaterally. No lower extremity edema. Neuro: Sedated. Labs/Diagnostic Data Labs Test 06/22/24 08:00 06/22/24 06:12 06/21/24 05:21 06/20/24 19:30 Range/Units Blood Gas Specimen Type Arterial Blood Gas Sample Site Left brachial Blood Gas Patient Temperature 37.0 Arterial Blood Date Drawn [id number] Arterial Blood pH 7.393 7.350-7.450 Arterial Blood Partial Pressure CO2 43.8 35.0-48.0 mmHg Arterial Blood Partial Pressure O2 73.0 L 83.0-108.0 mmHg Arterial Blood HCO3 26.1 21.0-28.0 mmol/L Arterial Blood Oxygen Saturation 94.1 94.0-98.0 % Arterial Blood Base Excess 0.9 -2.0-3.0 mmol/L Arterial Blood Oxyhemoglobin 93.3 L 94.0-98.0 % Arterial Blood Carboxyhemoglobin 0.5 0.5-1.5 % Arterial Blood Methemoglobin 0.3 0.0-1.5 % Godfrey Test N/a Blood Gas Total Hemoglobin 12.10 L 13.5-17.5 g/dL Blood Gas Set Respiration Rate 18.0 Blood Gas Modality Vent - ac FiO2 % 30.0 Blood Gas Tidal Volume 550.0 Blood Gas PEEP or CPAP 5.0 Sodium Level 147 H 136-145 mmol/L Potassium Level 4.0 3.5-5.1 mmol/L Chloride Level 111 H 98-107 mmol/L Carbon Dioxide Level 29 20-31 mmol/L Anion Gap 7 5-15 Blood Urea Nitrogen 52 #H 9-23 mg/dL Creatinine 1.06 0.700-1.30 mg/dL Glomerular Filtration Rate Calc 81 >90 mL/min BUN/Creatinine Ratio 49.1 H 10.0-20.0 Serum Glucose 149 H 74-106 mg/dL Calcium Level 9.0 8.7-10.4 mg/dL White Blood Count 4.1 L 4.4-10.8 10^3/uL Red Blood Count 4.09 L 4.5-5.90 10^6/uL Hemoglobin 11.9 L 13.5-17.5 g/dL Hematocrit 35.8 L 41.0-53.0 % Mean Corpuscular Volume 87.5 80.0-100.0 fL Mean Corpuscular Hemoglobin 29.1 28.0-32.0 pg Mean Corpuscular Hemoglobin Concent 33.3 32.0-36.0 g/dL Red Cell Distribution Width 15.7 H 11.8-14.3 % Platelet Count 316 140-450 10^3/uL Mean Platelet Volume 7.1 6.9-10.8 fL Neutrophils (%) (Auto) 75.7 37.0-80.0 % Lymphocytes (%) (Auto) 15.9 10.0-50.0 % Monocytes (%) (Auto) 8.3 0.0-12.0 % Eosinophils (%) (Auto) 0.0 0.0-7.0 % Basophils (%) (Auto) 0.1 0.0-2.0 % Neutrophils # (Auto) 3.1 1.6-8.6 10 ^3/uL Lymphocytes # (Auto) 0.7 0.4-5.4 10 ^3/uL Monocytes # (Auto) 0.3 0-1.3 10 ^3/uL Eosinophils # (Auto) 0 0-0.8 10 ^3/uL Basophils # (Auto) 0 0-0.2 10 ^3/uL Nucleated Red Blood Cells 0.1 % Prothrombin Time 9.6 9.3-11.8 sec Prothrombin Time INR 0.90 0.9-1.15 Activated Partial Thromboplast Time 28.2 24.5-34.5 SEC Total Bilirubin 0.3 0.2-1.0 mg/dL Aspartate Amino Transferase (AST) 21 13-40 U/L Alanine Aminotransferase (ALT) 38 7-40 U/L Alkaline Phosphatase 50 46-116 U/L Total Protein 6.1 5.7-8.2 g/dL Albumin 4.1 3.2-4.8 g/dL Troponin I High Sensitivity 471 *H </=54 ng/L Test 06/20/24 11:23 06/20/24 11:00 06/20/24 05:20 06/20/24 05:19 Range/Units Urine Color Yellow Yellow Urine Clarity Clear Clear Urine pH 5.5 5.0-9.0 Urine Specific [place] 1.026 1.001-1.035 Urine Protein Trace H Negative Urine Ketones Negative Negative Urine Blood Negative Negative /uL Urine Nitrite Negative Negative Urine Bilirubin Negative Negative Urine Urobilinogen Normal Negative mg/dL Urine Leukocyte Esterase Negative Negative /uL Urine RBC 1 0 - 3 /hpf Urine Microscopic WBC 3 0-3 /HPF Urine Squamous Epithelial Cells Few <5 /hpf Urine Bacteria None seen None Seen /hpf Urine Hyaline Casts Few 0 - 2 /lpf Urine Mucus Few None Seen Urine Glucose Normal Normal mg/dL Influenza Type A Antigen Negative Negative Influenza Type B Antigen Negative Negative SARS-CoV-2 Antigen (Rapid) Negative NEGATIVE Venous Blood pH 7.126 *L 7.320-7.430 Venous Blood pCO2 at Patient Temp 81.7 *H 38.0-54.0 mmHg Venous Blood pO2 at Patient Temp 119.0 H 23.0-48.0 mmHg Venous Blood HCO3 26.3 22.0-29.0 mmol/L Venous Blood Base Excess -5.1 L -2.0-3.0 mmol/L Blood Gas EPAP 5 Blood Gas IPAP 12 Blood Gas Critical Value Read Back Yes Blood Gas Notified Whom md es brooks Blood Gas Notified Time [id number] Blood Gas Notified By Loading Rack Supervisor jarrett mane D-Dimer, Quantitative 0.28 0.0-0.49 mg/L FEU Lactic Acid Level 1.7 0.4-2.0 mmol/L B-Type Natriuretic Peptide 30.81 0-100 pg/mL Thyroid Stimulating Hormone (TSH) 10.08 H 0.55-4.78 uIU/mL Free Thyroxine (T4) Calculated 0.95 0.89-1.76 ng/dL Total Triiodothyronine (TT3) 1.07 0.60-1.81 ng/mL Microbiology Date/Time Source Procedure Growth Status 06/20/24 08:23 Sputum Gram Stain - Final Complete 06/20/24 08:23 Sputum Respiratory Culture - Final Complete 06/20/24 05:19 Blood Blood Culture - Preliminary NO GROWTH AFTER 48 HOURS OF INCUBATION. Resulted Assessment Impression: Acute hypoxic respiratory failure On mechanical ventilator COPD exacerbation Nicotine dependence Elevated troponin Atrial fibrillation Hypertension Plan: s/p intubation on mechanical ventilator. CXR image and report reviewed. Devices in place. Pulmonary congestion. No pneumothorax. No pleural effusion. ABG reviewed, compensated. Labs reviewed, within normal limits. On AC mode; RR 18, VT 550, PEEP 5, FiO2 30% Titrate FIO2 to keep O2 saturation above 90%. VAP bundle. Daily ABG and CXR while intubated Sedate for ventilator synchrony - on Versed/Fentanyl Off Levophed, hemodynamically stable. Continue bronchodilators. IV steroids Continue antibiotics. Start pressors if necessary to maintain a mean arterial blood pressure greater than 65 mmHg. Diurese as tolerated w/ Lasix Monitor renal function Monitor electrolytes. Supplement as necessary. Monitor ins and outs. Maintain euvolemia. Taper sedation as tolerated CPAP with PS 8, PEEP of 5 OK to increase PS to max 20 cmH2O to achieve tidal volume 500-600 mL. GI prophylaxis. DVT prophylaxis. Prognosis: Poor given patient's multiple co-morbidities. Condition: Critical Rest of plan per hospitalist and other consultants. A total of 35 minutes of critical care time was spent reviewing the patient record, examining the patient, making a diagnostic and therapeutic plan, discussing this plan with the medical personnel, following up on diagnostic studies and following the patient for clinical stability excluding any and all procedures. At least 50% of this time was spent in direct, [id number] contact. Thank you, JENNIFER Espitia, for allowing me to participate in this patient's care. Further recommendations will depend on the patient's clinical course. Please do not hesitate to contact me if you have any questions or concerns. This medical document was created using an electronic medical record system with [employer] dictation system. Although these documentations are being carefully reviewed, there may still be some phonetic and typographical changes. The errors are purely typographical, due to imperfection on the software program, and do not reflect any compromise in the patient's medical care. Plan discussed with: Other (ADELINE Sandoval/JENNIFER Espitia/) ILYA GARCES MD Jun 22, 2024 18:44
[2024-06-23] VITALS (111 sets, daily range): BP systolic 90–156; BP diastolic 59–101; PULSE 56–129; RESP 7–29; TEMP 96.8–99.3; O2SAT 88–99
[2024-06-23 03:58] LABS: Basophils # (auto) 0 10 ^3/uL (0-0.2); Basophils % (auto) 0.2 % (0.0-2.0); Eosinophils # (auto) 0 10 ^3/uL (0-0.8); Hematocrit 35.3 % (41.0-53.0); Hemoglobin 11.7 g/dL (13.5-17.5); Lymphocytes # (auto) 0.4 10 ^3/uL (0.4-5.4); Mean Corpuscular Hemoglobin 29.3 pg (28.0-32.0); Mean Corpuscular Volume 88.7 fL (80.0-100.0); Monocytes # (auto) 0.3 10 ^3/uL (0-1.3); Monocytes % (auto) 3.5 % (0.0-12.0); Neutrophils # (auto) 8.2 10 ^3/uL (1.6-8.6); Neutrophils % (auto) 92.3 % (37.0-80.0); Nucleated Red Blood Cells % 0.1 %; Platelet Count (auto) 307 10^3/uL (140-450); Red Blood Cells 3.98 10^6/uL (4.5-5.90); Red Cell Distribution Width 16.7 % (11.8-14.3); White Blood Cell 8.9 10^3/uL (4.4-10.8)
[2024-06-23 04:33] LABS: Potassium 4.4 mmol/L (3.5-5.1)
[2024-06-23 04:34] LABS: Anion Gap 7 (5-15); Calcium 9.3 mg/dL (8.7-10.4); Carbon Dioxide 29 mmol/L (20-31)
[2024-06-23 04:39] LABS: BUN/Creatinine Ratio 50.7 (10.0-20.0)
[2024-06-23 04:44] LABS: Blood Urea Nitrogen 69 mg/dL (9-23); Chloride 111 mmol/L (98-107); Glucose 163 mg/dL (74-106); Sodium 147 mmol/L (136-145)
--- NOTE | 2024-06-23 05:34 | DVH ---
CHEST RADIOGRAPH Indication: INTUBATED Technique: Single frontal view of the chest was obtained Comparison: XY CHEST PORTABLE on DOS: 06/22/24 FINDINGS: Lines and Tubes: There is a left central venous catheter terminating in the superior vena cava. The e nteric tube courses below the left hemidiaphragm and the tip extends outside the field of view. The e ndotracheal tube terminates 7.2 cm above ashley. Lungs: No focal consolidation. Pleura: No effusion. No pneumothorax. Cardiomediastinal contours: Unremarkable Bones: No acute osseous abnormality. IMPRESSION: 1. Stable position of the support lines and tubes. 2. No acute cardiopulmonary disease.
--- NOTE | 2024-06-23 09:40 | DVHINCON2 ---
Date of service: Jun 23, 2024 Referring Physician Tom Nguyen, nurse practitioner Reason for Consultation Acute kidney injury History of Present Illness Patient is 58-year-old male with past medical history significant for AFIB, Asthma, COPD, HTN, acute on chronic respiratory failure, acute hypoxic respiratory failure, and PNA is admitted for worsening shortness of breath and hypoxemia. Patient intubated due to altered level of consciousness on the ventilator nephrology is consulted for worsening BUN and creatinine for acute kidney injury Past Medical History PAST MEDICAL HISTORY: AFIB, Asthma, COPD, HTN acute on chronic respiratory failure, acute hypoxic respiratory failure, PNA Past Surgical History Surgical History: Appendectomy Allergies: Coded Allergies: NO KNOWN ALLERGIES (Unverified , 12/20/22) Home Meds Active Scripts Levofloxacin Hemihydrate (LEVAQUIN 500 MG) 500 Mg Tab, 1 TAB PO DAILY for 5 Days, #5 TAB Prov:ESSENCE FONG [employer]AKDOWN [employer]ESSOR 06/09/24 Prednisone (Prednisone) 20 Mg Tab, 20 MG PO DAILY for 5 Days, #5 MG Prov:ESSENCE FONG [employer]AKDOWN PROCESSOR 06/09/24 Famotidine (PEPCID TABLET) 20 Mg Tb, 1 TAB PO DAILY for 10 Days, #10 TAB 5 Refills Prov:JOHNNY MURRY MD 06/04/24 Azithromycin (Zithromax Z-Loc) 250 Mg Tab, 250 MG PO BID for 3 Days, #6 TAB Prov:MERLIN YING RESIDENT 03/20/24 Acetaminophen (Acetaminophen) 325 Mg Tab, 650 MG PO Q6HP PRN for 10 Days, #80 TAB Prov:FELECIA MARTINEZ RESIDENT 01/25/24 Reported Medications Hctz (Hydrochlorothiazide) 25 Mg Tab, 1 TAB PO DAILY 01/24/24 Temazepam (Restoril) 15 Mg Cp, 1 CAP PO QHSP 07/06/23 Albuterol Sulfate (Albuterol Sulfate) 0.083 % Neb, 1 PUFF NEB Q4H PRN for SHORTNESS OF BREATH 12/21/22 Albuterol Sulfate (Albuterol Sulfate Hfa) 108 Mcg/Act Aer, 108 MCG INH Q4HP PRN for SHORTNESS OF BREATH 12/21/22 Budesonide-Formoterol Fumarate (Budesonide/Formoterol Fum 160-4.5 Mcg/Act) 1 Aer Aer, 2 PUFF INH BID 12/21/22 Current Medications Current Medications Medications (Trade) Dose Ordered Sig/Milvia Route PRN Reason Start Time Stop Time Status Last Admin Propofol 100 ml @ 2.454 mls/ hr Q24H IV 06/22/24 15:45 06/23/24 01:06 Sodium Chloride 1,000 ml @ 100 mls/hr Q10H IV 06/23/24 09:30 06/23/24 10:42 Family History: Cardiovascular disease G8 MOTHER, Chronic obstructive pulmonary disease G8 MOTHER, G8 FATHER, FH: cancer G8 FATHER, Hypertension G8 SISTER Review of Systems Can not be obtained H&P Exam Vital Signs/I&O Vital Sign Date Time Temp Pulse Resp B/P (MAP) Pulse Ox O2 Delivery O2 Flow Rate FiO2 06/23/24 11:15 98.8 94 11 120/79 (93) 93 209.8 06/23/24 10:19 30 06/23/24 10:00 Mechanical Ventilator+ Intake and Output 06/22/24 06/23/24 19:00 07:00 Intake Total 602.5 ml 221.211 ml Output Total 565 ml 100 ml Balance 37.5 ml 121.211 ml Intake Oral 60 ml IV Total 542.5 ml 221.211 ml Output Urine Total 565 ml 100 ml Physical Exam Patient intubated on ventilator Lungs bilateral distant breath sound Cardiac exam irregular rate and rhythm GI soft nontender Bloom Extremities no clubbing cyanosis or edema Neuro patient is sedated Labs/Diagnostic Data Labs/Diagnostic Data Laboratory Tests Test 06/23/24 11:07 06/23/24 10:15 06/23/24 03:10 06/22/24 08:00 Range/Units Blood Gas Specimen Type Arterial Arterial Blood Gas Sample Site Right radial Left brachial Blood Gas Patient Temperature 37.0 37.0 Arterial Blood Date Drawn [id number] Arterial Blood pH 7.342 L 7.393 7.350-7.450 Arterial Blood Partial Pressure CO2 52.0 H 43.8 35.0-48.0 mmHg Arterial Blood Partial Pressure O2 93.7 73.0 L 83.0-108.0 mmHg Arterial Blood HCO3 27.6 26.1 21.0-28.0 mmol/L Arterial Blood Oxygen Saturation 96.0 94.1 94.0-98.0 % Arterial Blood Base Excess 1.1 0.9 -2.0-3.0 mmol/L Arterial Blood Oxyhemoglobin 95.8 93.3 L 94.0-98.0 % Arterial Blood Carboxyhemoglobin 0.1 L 0.5 0.5-1.5 % Arterial Blood Methemoglobin 0.1 0.3 0.0-1.5 % Godfrey Test Modified N/a Blood Gas Total Hemoglobin 12.00 L 12.10 L 13.5-17.5 g/dL Blood Gas Modality Vent - cpap Vent - ac FiO2 % 35.0 30.0 Blood Gas Pressure Support 8 Blood Gas PEEP or CPAP 5.0 5.0 Urine Color Light-yellow Yellow Urine Clarity Clear Clear Urine pH 6.0 5.0-9.0 Urine Specific [place] 1.013 1.001-1.035 Urine Protein Negative Negative Urine Ketones Negative Negative Urine Blood 2+ H Negative /uL Urine Nitrite Negative Negative Urine Bilirubin Negative Negative Urine Urobilinogen Normal Negative mg/dL Urine Leukocyte Esterase Negative Negative /uL Urine RBC 115 0 - 3 /hpf Urine Microscopic WBC 2 0-3 /HPF Urine Squamous Epithelial Cells None seen <5 /hpf Urine Bacteria None seen None Seen /hpf Urine Mucus Few None Seen Urine Glucose Normal Normal mg/dL White Blood Count 8.9 # 4.4-10.8 10^3/uL Red Blood Count 3.98 L 4.5-5.90 10^6/uL Hemoglobin 11.7 L 13.5-17.5 g/dL Hematocrit 35.3 L 41.0-53.0 % Mean Corpuscular Volume 88.7 80.0-100.0 fL Mean Corpuscular Hemoglobin 29.3 28.0-32.0 pg Mean Corpuscular Hemoglobin Concent 33.0 32.0-36.0 g/dL Red Cell Distribution Width 16.7 H 11.8-14.3 % Platelet Count 307 140-450 10^3/uL Mean Platelet Volume 7.8 6.9-10.8 fL Neutrophils (%) (Auto) 92.3 H 37.0-80.0 % Lymphocytes (%) (Auto) 4.0 L 10.0-50.0 % Monocytes (%) (Auto) 3.5 0.0-12.0 % Eosinophils (%) (Auto) 0.0 0.0-7.0 % Basophils (%) (Auto) 0.2 0.0-2.0 % Neutrophils # (Auto) 8.2 1.6-8.6 10 ^3/uL Lymphocytes # (Auto) 0.4 0.4-5.4 10 ^3/uL Monocytes # (Auto) 0.3 0-1.3 10 ^3/uL Eosinophils # (Auto) 0 0-0.8 10 ^3/uL Basophils # (Auto) 0 0-0.2 10 ^3/uL Nucleated Red Blood Cells 0.1 % Sodium Level 147 H 136-145 mmol/L Potassium Level 4.4 3.5-5.1 mmol/L Chloride Level 111 H 98-107 mmol/L Carbon Dioxide Level 29 20-31 mmol/L Anion Gap 7 5-15 Blood Urea Nitrogen 69 #H 9-23 mg/dL Creatinine 1.36 H 0.700-1.30 mg/dL Glomerular Filtration Rate Calc 60 >90 mL/min BUN/Creatinine Ratio 50.7 H 10.0-20.0 Serum Glucose 163 H 74-106 mg/dL Calcium Level 9.3 8.7-10.4 mg/dL Phosphorus Level 5.4 H 2.4-5.1 mg/dL Magnesium Level 3.0 H 1.6-2.6 mg/dL Blood Gas Set Respiration Rate 18.0 Blood Gas Tidal Volume 550.0 Test 06/22/24 06:12 06/21/24 06:30 06/21/24 05:21 06/21/24 03:06 Range/Units Sodium Level 147 H 143 142 136-145 mmol/L Potassium Level 4.0 3.9 4.1 3.5-5.1 mmol/L Chloride Level 111 H 109 H 110 H 98-107 mmol/L Carbon Dioxide Level 29 26 23 20-31 mmol/L Anion Gap 7 8 9 5-15 Blood Urea Nitrogen 52 #H 31 H 27 #H 9-23 mg/dL Creatinine 1.06 1.16 1.16 0.700-1.30 mg/dL Glomerular Filtration Rate Calc 81 73 73 >90 mL/min BUN/Creatinine Ratio 49.1 H 26.7 H 23.3 H 10.0-20.0 Serum Glucose 149 H 160 H 152 H 74-106 mg/dL Calcium Level 9.0 9.1 9.0 8.7-10.4 mg/dL Blood Gas Specimen Type Arterial Blood Gas Sample Site Left radial Blood Gas Patient Temperature 37.0 Arterial Blood Date Drawn [id number] Arterial Blood pH 7.328 L 7.350-7.450 Arterial Blood Partial Pressure CO2 46.5 35.0-48.0 mmHg Arterial Blood Partial Pressure O2 82.5 L 83.0-108.0 mmHg Arterial Blood HCO3 23.9 21.0-28.0 mmol/L Arterial Blood Oxygen Saturation 95.7 94.0-98.0 % Arterial Blood Base Excess -2.3 L -2.0-3.0 mmol/L Arterial Blood Oxyhemoglobin 94.7 94.0-98.0 % Arterial Blood Carboxyhemoglobin 0.7 0.5-1.5 % Arterial Blood Methemoglobin 0.3 0.0-1.5 % Godfrey Test Modified Blood Gas Total Hemoglobin 13.10 L 13.5-17.5 g/dL Blood Gas Set Respiration Rate 18.0 Blood Gas Modality Vent - ac FiO2 % 35.0 Blood Gas Tidal Volume 550.0 Blood Gas PEEP or CPAP 5.0 White Blood Count 4.1 L 4.2 #L 4.4-10.8 10^3/uL Red Blood Count 4.09 L 4.25 L 4.5-5.90 10^6/uL Hemoglobin 11.9 L 12.5 L 13.5-17.5 g/dL Hematocrit 35.8 L 38.1 #L 41.0-53.0 % Mean Corpuscular Volume 87.5 89.6 80.0-100.0 fL Mean Corpuscular Hemoglobin 29.1 29.5 28.0-32.0 pg Mean Corpuscular Hemoglobin Concent 33.3 32.9 32.0-36.0 g/dL Red Cell Distribution Width 15.7 H 16.9 H 11.8-14.3 % Platelet Count 316 311 140-450 10^3/uL Mean Platelet Volume 7.1 6.8 L 6.9-10.8 fL Neutrophils (%) (Auto) 75.7 74.8 37.0-80.0 % Lymphocytes (%) (Auto) 15.9 16.3 10.0-50.0 % Monocytes (%) (Auto) 8.3 8.8 0.0-12.0 % Eosinophils (%) (Auto) 0.0 0.0 0.0-7.0 % Basophils (%) (Auto) 0.1 0.1 0.0-2.0 % Neutrophils # (Auto) 3.1 3.2 1.6-8.6 10 ^3/uL Lymphocytes # (Auto) 0.7 0.7 0.4-5.4 10 ^3/uL Monocytes # (Auto) 0.3 0.4 0-1.3 10 ^3/uL Eosinophils # (Auto) 0 0 0-0.8 10 ^3/uL Basophils # (Auto) 0 0 0-0.2 10 ^3/uL Nucleated Red Blood Cells 0.1 0.1 % Prothrombin Time 9.6 9.3-11.8 sec Prothrombin Time INR 0.90 0.9-1.15 Activated Partial Thromboplast Time 28.2 24.5-34.5 SEC Total Bilirubin 0.3 0.2-1.0 mg/dL Aspartate Amino Transferase (AST) 21 13-40 U/L Alanine Aminotransferase (ALT) 38 7-40 U/L Alkaline Phosphatase 50 46-116 U/L Total Protein 6.1 5.7-8.2 g/dL Albumin 4.1 3.2-4.8 g/dL Test 06/20/24 19:30 06/20/24 11:23 06/20/24 11:00 06/20/24 09:40 Range/Units Troponin I High Sensitivity 471 *H </=54 ng/L Urine Color Yellow Yellow Urine Clarity Clear Clear Urine pH 5.5 5.0-9.0 Urine Specific [place] 1.026 1.001-1.035 Urine Protein Trace H Negative Urine Ketones Negative Negative Urine Blood Negative Negative /uL Urine Nitrite Negative Negative Urine Bilirubin Negative Negative Urine Urobilinogen Normal Negative mg/dL Urine Leukocyte Esterase Negative Negative /uL Urine RBC 1 0 - 3 /hpf Urine Microscopic WBC 3 0-3 /HPF Urine Squamous Epithelial Cells Few <5 /hpf Urine Bacteria None seen None Seen /hpf Urine Hyaline Casts Few 0 - 2 /lpf Urine Mucus Few None Seen Urine Glucose Normal Normal mg/dL Influenza Type A Antigen Negative Negative Influenza Type B Antigen Negative Negative SARS-CoV-2 Antigen (Rapid) Negative NEGATIVE Blood Gas Specimen Type Arterial Blood Gas Sample Site Left radial Blood Gas Patient Temperature 37.0 Arterial Blood Date Drawn [id number] Arterial Blood pH 7.266 L 7.350-7.450 Arterial Blood Partial Pressure CO2 53.5 H 35.0-48.0 mmHg Arterial Blood Partial Pressure O2 116.0 H 83.0-108.0 mmHg Arterial Blood HCO3 23.8 21.0-28.0 mmol/L Arterial Blood Oxygen Saturation 97.7 94.0-98.0 % Arterial Blood Base Excess -3.8 L -2.0-3.0 mmol/L Arterial Blood Oxyhemoglobin 95.6 94.0-98.0 % Arterial Blood Carboxyhemoglobin 1.6 H 0.5-1.5 % Arterial Blood Methemoglobin 0.5 0.0-1.5 % Godfrey Test Modified Blood Gas Total Hemoglobin 13.80 13.5-17.5 g/dL Blood Gas Set Respiration Rate 18.0 Blood Gas Modality Vent - ac FiO2 % 50.0 Blood Gas Tidal Volume 550.0 Blood Gas PEEP or CPAP 5.0 Test 06/20/24 08:00 06/20/24 06:15 06/20/24 05:20 06/20/24 05:19 Range/Units Troponin I High Sensitivity 405 *H 89 *H 28 </=54 ng/L Blood Gas Specimen Type Venous Blood Gas Sample Site Vbg - n/a Blood Gas Patient Temperature 37.0 Arterial Blood Date Drawn [id number] Godfrey Test N/a Venous Blood pH 7.126 *L 7.320-7.430 Venous Blood pCO2 at Patient Temp 81.7 *H 38.0-54.0 mmHg Venous Blood pO2 at Patient Temp 119.0 H 23.0-48.0 mmHg Venous Blood HCO3 26.3 22.0-29.0 mmol/L Venous Blood Base Excess -5.1 L -2.0-3.0 mmol/L Blood Gas Modality Mask - bipap FiO2 % 50.0 Blood Gas EPAP 5 Blood Gas IPAP 12 Blood Gas Critical Value Read Back Yes Blood Gas Notified Whom md es brooks Blood Gas Notified Time [id number] Blood Gas Notified By Carpet Journeyman jarrett mane White Blood Count 6.8 4.4-10.8 10^3/uL Red Blood Count 5.00 4.5-5.90 10^6/uL Hemoglobin 14.4 13.5-17.5 g/dL Hematocrit 44.0 41.0-53.0 % Mean Corpuscular Volume 88.0 80.0-100.0 fL Mean Corpuscular Hemoglobin 28.7 28.0-32.0 pg Mean Corpuscular Hemoglobin Concent 32.7 32.0-36.0 g/dL Red Cell Distribution Width 16.0 H 11.8-14.3 % Platelet Count 329 140-450 10^3/uL Mean Platelet Volume 6.8 L 6.9-10.8 fL Neutrophils (%) (Auto) 48.2 37.0-80.0 % Lymphocytes (%) (Auto) 34.4 10.0-50.0 % Monocytes (%) (Auto) 15.2 H 0.0-12.0 % Eosinophils (%) (Auto) 0.8 0.0-7.0 % Basophils (%) (Auto) 1.4 0.0-2.0 % Neutrophils # (Auto) 3.3 1.6-8.6 10 ^3/uL Lymphocytes # (Auto) 2.3 0.4-5.4 10 ^3/uL Monocytes # (Auto) 1.0 0-1.3 10 ^3/uL Eosinophils # (Auto) 0.1 0-0.8 10 ^3/uL Basophils # (Auto) 0.1 0-0.2 10 ^3/uL Nucleated Red Blood Cells 0.2 % D-Dimer, Quantitative 0.28 0.0-0.49 mg/L FEU Sodium Level 141 136-145 mmol/L Potassium Level 4.2 3.5-5.1 mmol/L Chloride Level 106 98-107 mmol/L Carbon Dioxide Level 30 20-31 mmol/L Anion Gap 5 5-15 Blood Urea Nitrogen 14 9-23 mg/dL Creatinine 1.04 0.700-1.30 mg/dL Glomerular Filtration Rate Calc 83 >90 mL/min BUN/Creatinine Ratio 13.5 10.0-20.0 Serum Glucose 129 H 74-106 mg/dL Lactic Acid Level 1.7 0.4-2.0 mmol/L Calcium Level 9.6 8.7-10.4 mg/dL B-Type Natriuretic Peptide 30.81 0-100 pg/mL Thyroid Stimulating Hormone (TSH) 10.08 H 0.55-4.78 uIU/mL Free Thyroxine (T4) Calculated 0.95 0.89-1.76 ng/dL Total Triiodothyronine (TT3) 1.07 0.60-1.81 ng/mL Microbiology Date/Time Source Procedure Growth Status 06/20/24 08:23 Sputum Gram Stain - Final Complete 06/20/24 08:23 Sputum Respiratory Culture - Final Complete Assessment Acute kidney injury secondary hemodynamic mediated Hyponatremia due to insensible water loss Acute on chronic respiratory failure, patient intubated on ventilator COPD exacerbation NSTEMI AFib Recommendations Closely monitor fluid and electrolytes Avoid nephrotoxic medications Bloom catheter Strict I&Os DC furosemide IVF half NS at 100 cc/hour Check urine electrolytes Check kidney ultrasound IV antibiotics IV steroids Cardiology consult We will continue to follow Patient seen and examined by myself ICU bed four. I discussed my plan of care with the primary nurse at the bedside I would like to thank Tom for the consult, will follow up Plan discussed with: Other (Nurse) EDUARDO CERDA MD Jun 23, 2024 09:40
[2024-06-23 10:10] LABS: Phosphorus 5.4 mg/dL (2.4-5.1)
--- NOTE | 2024-06-23 10:22 | DVH ---
RENAL ULTRASOUND CLINICAL HISTORY: maru TECHNIQUE: Multiple ultrasound images of the kidneys and bladder were obtained. COMPARISON: US KIDNEY on DOS: 07/06/23, KIDNEY on DOS: 07/21/20 FINDINGS: The right kidney measures 9.6 cm in length. The left kidney measures 9.2 cm. There is mild bilateral renal pelvic fullness without jose hydronephrosis. There is no sonographic evidence of nephrolithia sis. There is a 0.9 cm benign-appearing right upper pole renal cysts. There is a Bloom catheter in the bladder which appears distended and contains internal echoes / debri s. IMPRESSION: 1. Mild bilateral renal pelvic fullness without jose hydronephrosis. There is no sonographic eviden ce of nephrolithiasis. 2. There is a Bloom catheter in the bladder which appears distended and contains internal echoes / de bris. Clinical correlation is recommended. HS:Y
[2024-06-23] MEDS: SOD CHL 0.45% 1,000 ML IV SCH (10:42)
[2024-06-23 11:10] LABS: Urine Bacteria None Seen /hpf (None Seen)
[2024-06-23 11:16] LABS: Base Excess 1.1 mmol/L (-2.0-3.0)
[2024-06-23 11:36] LABS: Urine Blood 2+ /uL (Negative); Urine Clarity Clear (Clear); Urine Color Light-Yellow (Yellow); Urine Mucus FEW (None Seen); Urine Protein, UAD Negative (Negative); Urine Specific Gravity 1.013 (1.001-1.035); Urine Squamous Epithelial Cell None Seen /hpf (<5); Urine Urobilinogen Normal (Negative); Urine WBC 2 /HPF (0-3)
[2024-06-23 11:40] LABS: Protein, Urine 14.8 mg/dL (1-14)
[2024-06-23 11:43] LABS: Creatinine, Urine 69.9 mg/dL (30.0-125.0); Urine Protein/Creatinine Ratio 0.21
--- NOTE | 2024-06-23 13:02 | DVHPN2 ---
Consult Progress Note Subjective Other Systems: Patient in sinus tachycardia on nurse monitoring Objective vital signs Vital Sign Date Time Temp Pulse Resp B/P (MAP) Pulse Ox O2 Delivery O2 Flow Rate FiO2 06/23/24 12:00 93 06/23/24 12:00 18 93 Mechanical Ventilator+ 30 30 06/23/24 11:54 123/79 (94) 06/23/24 11:15 98.8 209.8 Total Intake and Output 06/22/24 06/22/24 06/23/24 15:00 23:00 07:00 Intake Total 489 ml 173.5 ml 161.211 ml Output Total 400 ml 165 ml 100 ml Balance 89 ml 8.5 ml 61.211 ml medications Current Medications Medications Dose Ordered Sig/Milvia Route Start Time Stop Time Status Last Admin Dose Admin Ondansetron HCl 4 mg Q4HP PRN IV 06/20/24 07:15 Nitroglycerin 0.4 mg Q5MINP PRN SL 06/20/24 07:15 Morphine Sulfate 2 mg Q30M PRN IV 06/20/24 07:15 Albuterol 2.5 mg Q4HR NEB 06/20/24 10:00 06/23/24 10:19 2.5 MG Ipratropium Sibley 0.5 mg Q4HPRN PRN NEB 06/20/24 07:30 Methylprednisolone Sodium Succinate 40 mg Q8HR IV 06/20/24 14:00 06/23/24 05:37 40 MG Pantoprazole Sodium 40 mg DAILY IV 06/20/24 10:00 Hold 06/23/24 08:04 40 MG Budesonide 0.5 mg BID NEB 06/20/24 10:00 06/23/24 07:13 0.5 MG Midazolam HCl 50 ml @ 1 mls/hr Q24H IV 06/20/24 07:45 06/22/24 21:43 5 MLS/HR Albuterol 2.5 mg Q4HPRN PRN NEB 06/20/24 08:00 Ipratropium [place]y 0.5 mg Q4HR NEB 06/20/24 10:00 06/23/24 10:20 0.5 MG Ceftriaxone Sodium 50 ml @ 100 mls/hr DAILY@09 IV 06/20/24 09:00 06/23/24 08:03 100 MLS/HR Azithromycin 250 ml @ 125 mls/hr DAILY IV 06/20/24 10:00 06/23/24 09:00 125 MLS/HR Enoxaparin Sodium 30 mg DAILY SC 06/20/24 10:00 UNV Famotidine 20 mg DAILY PO 06/20/24 10:00 06/23/24 08:04 20 MG Fentanyl Citrate 250 ml @ 2.5 mls/hr Q24H IV 06/20/24 08:30 06/22/24 18:01 10 MLS/HR Enoxaparin Sodium 40 mg DAILY SC 06/20/24 10:00 06/23/24 08:04 40 MG Norepinephrine Bitartrate 250 ml @ 3.75 mls/hr Q24H IV 06/20/24 09:01 06/20/24 09:16 3.75 MLS/HR Dexmedetomidine HCl 400 mcg/ Dextrose 100 ml @ 4.09 mls/hr Q24H IV 06/22/24 10:00 06/23/24 00:30 4.09 MLS/HR Propofol 100 ml @ 2.454 mls/ hr Q24H IV 06/22/24 15:45 06/23/24 01:06 2.454 MLS/HR Sodium Chloride 1,000 ml @ 100 mls/hr Q10H IV 06/23/24 09:30 06/23/24 10:42 100 MLS/HR Examination: GENERAL:Abnormal, LUNGS:Abnormal (Mechanically ventilated), CVS:Normal, NEURO:Abnormal (Off sedations) laboratory and microbiology Laboratory Tests 06/23/24 03:10 Test 06/23/24 03:10 Range/Units Serum Glucose 163 H 74-106 mg/dL Problem List/Assessment/Plan Problem List/Assessment/Plan Transient second degree type II atrioventricular block Severe COPD exacerbation Acute on chronic hypoxic respiratory failure NSTEMI, likely type 2 secondary to above Hx hypertension Dyslipidemia Prediabetes Acute kidney injury Nicotine dependence Plan/Recommendation (Dr. Moseley): Patient seen and examined at bedside with . Cardiology has now been reconsulted on this patient for new onset bradycardia with pauses. After reviewing ECG strips with MD, patient noted to have episodes of transient second-degree type 2 AV block. Patient also noted to have an episode of a four second pause overnight. At this time, we will continue to monitor closely. We will recommend to avoid all AV ivania blocking agents. The patient needs to be on continuous ECG monitoring. Patient currently undergoing CPAP trial and is off of all sedations. Patient now in sinus tachycardia on nurse monitoring, no other cardiac events seen this time. Further recommendations per clinical course and progression. Thank you for allowing us to care for this patient. Please call with any questions or concerns. Critical care time: 35 min. This medical document was created using an electronic medical record system with voice recognition software and computerized dictation system. Although this document has been carefully reviewed, there might still be some phonetic and typographical errors. Occasional wrong-word or ``sound-alike substitutions may have occurred due to the inherent limitations of voice recognition software. These areas are purely typographical due to imperfections of the software programs and do not reflect any compromise in the patient's medical care. Please read the chart carefully and recognize, using context, where these substitutions have occurred. Plan discussed with: Other (Bedside RN) Dietary Evaluation Review Comments: 1. If EN/GI accessible, Glucerna 45ml/hr, 65g pro 1296 kcal, satisfies pt's needs for Pro 80 %, Kcal 80%, in additon Propofol provides 110 kcal/100ml fat kcal Thus pt will have 1406 total kcal, supporting pt 's energy needs is increasedd to 86%. 2. If EN/GI not a option, NPO > 7 days, offer TPN per pharmacy 3. If pt off vent, passess speech eval, offer 2 g Na CCHO-60 low fat Low cholesterol diet. Expected Outcomes/Goals: gradually healed wounds, graudal weight loss, controlled blood glucose. Date of Service: Jun 23, 2024 Billing Provider: DANE MOSELEY MD Common Visit Codes: [id number] CARE 30-74 MIN SAMM YOUSSEF Jun 23, 2024 13:02
--- NOTE | 2024-06-23 15:49 | DVHSR ---
APPROVED REPORT EXAM: Two-dimensional and M-mode echocardiogram with Doppler and color Doppler. Blood Pressure: 123/79 mmHg INDICATION Cardiac function RISK FACTORS Height: 6', Weight: 149 DIMENSIONS LVDd5.4 (3.8-5.7cm)LA (2D) (1.9-4.0cm)Aortic Root (2.0-3.7cm) LVDs4.0 (2.5-4.0cm)LA (MM) (1.9-4.0cm)Aortic Cusp Exc (1.5-2.0cm) EF (%) 55.0 (55-70%)Rt. Atrium (1.9-4.0cm)Asc. Aorta cm Mitral Valve MitralMitral Stenosis E/A ratio0.02D MVAcm2 Other Information Quality : Technically LimitedRhythm : Technically limited study due to pt on vent and moving. Conclusion This is a limited study to assess ejection fraction. The left ventricle is of normal size. Left ventricular systolic function is normal and is estimated at 55%. No gross regional wall motion abnormalities. The right ventricle is likely of normal size and systolic function. No significant pericardial effusion.
--- NOTE | 2024-06-23 21:22 | DVH ---
CHEST RADIOGRAPH Indication: VERIFY ETT PLACEMENT ON VENT Technique: Single frontal view of the chest was obtained Comparison: XY CHEST PORTABLE on DOS: 06/23/24, XY CHEST PORTABLE on DOS: 06/22/24, XY CHEST PORTABLE o n DOS: 06/21/24 FINDINGS: Lines and Tubes: Endotracheal tube terminates about 2.8 cm above the ashley. Left IJ approach centra l venous catheter terminating over the proximal SVC. The distal end of the enteric tube is outside th e field of view. Lungs: The lung bases are outside the [id number]. The visualized lungs are clear. Cardiomediastinal contours: Unremarkable Bones: No acute osseous abnormality. IMPRESSION: Endotracheal tube and left IJ approach central venous catheter in satisfactory position. The distal end of the enteric tube is outside the field of view. The lung bases are outside the field of view. The visualized lungs are clear.
--- NOTE | 2024-06-23 23:36 | DVHPN2 ---
Progress Note - Dictate Date Seen: Jun 23, 2024 Medical Necessity Reason Pt with a Central, PICC or Fol: Yes The following are medically ne: Mena Catheter Reason for mena catheter: Strict I&O Subjective Patient seen and examined at bedside. Sedated, intubated on mechanical ventilator. Overnight events reviewed. vital signs Vital Sign Date Time Temp Pulse Resp B/P (MAP) Pulse Ox O2 Delivery O2 Flow Rate FiO2 06/23/24 23:31 35 06/23/24 23:31 18 98 Mechanical Ventilator+ 06/23/24 23:00 97.7 59 114/72 (86) 207.9 Total Intake and Output 06/22/24 06/22/24 06/23/24 15:00 23:00 07:00 Intake Total 489 ml 173.5 ml 161.211 ml Output Total 400 ml 165 ml 100 ml Balance 89 ml 8.5 ml 61.211 ml medications Current Medications Medications Dose Ordered Sig/Milvia Route Start Time Stop Time Status Last Admin Dose Admin Ondansetron HCl 4 mg Q4HP PRN IV 06/20/24 07:15 Nitroglycerin 0.4 mg Q5MINP PRN SL 06/20/24 07:15 Morphine Sulfate 2 mg Q30M PRN IV 06/20/24 07:15 Albuterol 2.5 mg Q4HR NEB 06/20/24 10:00 06/23/24 22:10 2.5 MG Ipratropium [place] 0.5 mg Q4HPRN PRN NEB 06/20/24 07:30 Methylprednisolone Sodium Succinate 40 mg Q8HR IV 06/20/24 14:00 06/23/24 22:22 40 MG Pantoprazole Sodium 40 mg DAILY IV 06/20/24 10:00 Hold 06/23/24 08:04 40 MG Budesonide 0.5 mg BID NEB 06/20/24 10:00 06/23/24 18:32 0.5 MG Midazolam HCl 50 ml @ 1 mls/hr Q24H IV 06/20/24 07:45 06/22/24 21:43 5 MLS/HR Albuterol 2.5 mg Q4HPRN PRN NEB 06/20/24 08:00 Ipratropium [place] 0.5 mg Q4HR NEB 06/20/24 10:00 06/23/24 22:10 0.5 MG Ceftriaxone Sodium 50 ml @ 100 mls/hr DAILY@09 IV 06/20/24 09:00 06/23/24 08:03 100 MLS/HR Azithromycin 250 ml @ 125 mls/hr DAILY IV 06/20/24 10:00 06/23/24 09:00 125 MLS/HR Enoxaparin Sodium 30 mg DAILY SC 06/20/24 10:00 UNV Famotidine 20 mg DAILY PO 06/20/24 10:00 06/23/24 08:04 20 MG Fentanyl Citrate 250 ml @ 2.5 mls/hr Q24H IV 06/20/24 08:30 06/22/24 18:01 10 MLS/HR Enoxaparin Sodium 40 mg DAILY SC 06/20/24 10:00 06/23/24 08:04 40 MG Norepinephrine Bitartrate 250 ml @ 3.75 mls/hr Q24H IV 06/20/24 09:01 06/20/24 09:16 3.75 MLS/HR Dexmedetomidine HCl 400 mcg/ Dextrose 100 ml @ 4.09 mls/hr Q24H IV 06/22/24 10:00 06/23/24 00:30 4.09 MLS/HR Propofol 100 ml @ 2.454 mls/ hr Q24H IV 06/22/24 15:45 06/23/24 22:55 17.178 MLS/HR Sodium Chloride 1,000 ml @ 100 mls/hr Q10H IV 06/23/24 09:30 06/23/24 19:44 100 MLS/HR objective Gen.: Patient lying in bed in medical ICU. Sedated, intubated on mechanical ventilator. Head: Normocephalic, atraumatic. Eyes: PERRLA. Ears: Normal external anatomy. Throat: Endotracheal tube and orogastric tube in place. Neck: Supple, trachea midline. Chest: Transmitted breath sounds bilaterally. Decreased air entry bilaterally. No wheezing. Bibasilar crackles. Cardiovascular: Positive S1, positive S2. Regular rate and rhythm. Abdomen: Positive bowel sounds in all 4 quadrants. Soft, nontender, nondistended. : Mena in place. Normal external genitalia. Rectal: Deferred. Skin: Warm, dry. Intact. Extremities: 2+ radial pulses bilaterally. No lower extremity edema. Neuro: Sedated. laboratory and microbiology Laboratory Tests 06/23/24 03:10 Test 06/23/24 03:10 Range/Units Serum Glucose 163 H 74-106 mg/dL Assessment/Plan Impression: Acute hypoxic respiratory failure On mechanical ventilator COPD exacerbation Nicotine dependence Elevated troponin Atrial fibrillation Hypertension Events: Remains on vent support On AC mode; RR 18, VT 550, PEEP 5, FiO2 30 -->35% Sedated on Propofol, Fentanyl Continue antibiotics IV fluids at 100 mL/hr. Off Levophed, hemodynamically stable. ABG reviewed, notable for acidemia Chest x-ray demonstrates no consolidation, pleural effusion or pneumothorax. Devices in place. Taper sedation as tolerated CPAP in the AM. Labs and imaging reviewed. Rest of plan as noted below. Plan: s/p intubation on mechanical ventilator. CXR image and report reviewed. Devices in place. Pulmonary congestion. No pneumothorax. No pleural effusion. ABG reviewed, compensated. Labs reviewed, within normal limits. On AC mode; RR 18, VT 550, PEEP 5, FiO2 35% Titrate FIO2 to keep O2 saturation above 90%. VAP bundle. Daily ABG and CXR while intubated Sedate for ventilator synchrony Continue bronchodilators. IV steroids Continue antibiotics. Start pressors if necessary to maintain a mean arterial blood pressure greater than 65 mmHg. Diurese as tolerated w/ Lasix Monitor renal function Monitor electrolytes. Supplement as necessary. Monitor ins and outs. Maintain euvolemia. Taper sedation as tolerated CPAP with PS 8, PEEP of 5 OK to increase PS to max 20 cmH2O to achieve tidal volume 500-600 mL. GI prophylaxis. DVT prophylaxis. Prognosis: Poor given patient's multiple co-morbidities. Condition: Critical Rest of plan per hospitalist and other consultants. A total of 35 minutes of critical care time was spent reviewing the patient record, examining the patient, making a diagnostic and therapeutic plan, discussing this plan with the medical personnel, following up on diagnostic studies and following the patient for clinical stability excluding any and all procedures. At least 50% of this time was spent in direct, [id number] contact. Thank you, JENNIFER Espitia, for allowing me to participate in this patient's care. Further recommendations will depend on the patient's clinical course. Please do not hesitate to contact me if you have any questions or concerns. This medical document was created using an electronic medical record system with [employer] system. Although these documentations are being carefully reviewed, there may still be some phonetic and typographical changes. The errors are purely typographical, due to imperfection on the software program, and do not reflect any compromise in the patient's medical care. Dietary Evaluation Review Comments: 1. If EN/GI accessible, Glucerna 45ml/hr, 65g pro 1296 kcal, satisfies pt's needs for Pro 80 %, Kcal 80%, in additon Propofol provides 110 kcal/100ml fat kcal Thus pt will have 1406 total kcal, supporting pt 's energy needs is increasedd to 86%. 2. If EN/GI not a option, NPO > 7 days, offer TPN per pharmacy 3. If pt off vent, passess speech eval, offer 2 g Na CCHO-60 low fat Low cholesterol diet. Expected Outcomes/Goals: gradually healed wounds, graudal weight loss, controlled blood glucose. Plan discussed with: Other (ADELINE Sandoval) Critical Care Time(min): 35 ILYA AGRCES MD Jun 23, 2024 23:36
[2024-06-24] VITALS (111 sets, daily range): BP systolic 101–154; BP diastolic 59–117; PULSE 53–129; RESP 9–20; TEMP 97.3–99.1; O2SAT 88–100
[2024-06-24 04:01] LABS: Basophils # (auto) 0 10 ^3/uL (0-0.2); Basophils % (auto) 0.1 % (0.0-2.0); Eosinophils # (auto) 0 10 ^3/uL (0-0.8); Hematocrit 31.1 % (41.0-53.0); Hemoglobin 10.2 g/dL (13.5-17.5); Lymphocytes # (auto) 0.3 10 ^3/uL (0.4-5.4); Lymphocytes % (auto) 3.6 % (10.0-50.0); Mean Corpuscular Hgb Conc. 32.8 g/dL (32.0-36.0); Mean Corpuscular Volume 88.4 fL (80.0-100.0); Monocytes # (auto) 0.4 10 ^3/uL (0-1.3); Monocytes % (auto) 4.5 % (0.0-12.0); Neutrophils % (auto) 91.8 % (37.0-80.0); Nucleated Red Blood Cells % 0.1 %; Platelet Count (auto) 274 10^3/uL (140-450); Red Blood Cells 3.52 10^6/uL (4.5-5.90); Red Cell Distribution Width 16.2 % (11.8-14.3); White Blood Cell 8.7 10^3/uL (4.4-10.8)
[2024-06-24 04:14] LABS: Calcium 9.1 mg/dL (8.7-10.4); Potassium 4.2 mmol/L (3.5-5.1)
[2024-06-24 04:15] LABS: Anion Gap 6 (5-15); Carbon Dioxide 30 mmol/L (20-31)
[2024-06-24 04:20] LABS: BUN/Creatinine Ratio 67.5 (10.0-20.0)
[2024-06-24 04:22] LABS: Blood Urea Nitrogen 54 mg/dL (9-23); Chloride 111 mmol/L (98-107); Glucose 154 mg/dL (74-106); Magnesium 2.7 mg/dL (1.6-2.6); Sodium 147 mmol/L (136-145)
--- NOTE | 2024-06-24 06:18 | DVH ---
CHEST RADIOGRAPH Indication: INTUBATED ON VENT Technique: Single frontal view of the chest was obtained Comparison: XY CHEST XRAY 1 VIEW on DOS: 06/23/24, XY CHEST PORTABLE on DOS: 06/23/24, XY CHEST PORTABL E on DOS: 06/22/24 IMPRESSION: Heart appears stable in size. The lungs appear clear without focal airspace opacity, effusion, or pn eumothorax. Support lines and tubes appear unchanged in satisfactory position.
--- NOTE | 2024-06-24 11:00 | DVHPN2 ---
Progress Note Date Seen: Jun 24, 2024 Medical Necessity Reason Pt with a Central, PICC or Fol: Yes The following are medically ne: Mena Catheter Reason for mena catheter: Strict I&O Subjective Review of Systems: RESPIRATORY:Abnormal Other Systems: Patient seen and examined by myself today in follow-up, patient remained intubated on ventilator Objective vital signs Vital Sign Date Time Temp Pulse Resp B/P (MAP) Pulse Ox O2 Delivery O2 Flow Rate FiO2 06/24/24 10:06 57 18 106/64 (78) 95 35 06/24/24 07:00 97.9 208.2 06/24/24 05:30 Mechanical Ventilator+ Total Intake and Output 06/23/24 06/23/24 06/24/24 15:00 23:00 07:00 Intake Total 830.496 ml 1013.252 ml 1071.596 ml Output Total 1570 ml 650 ml Balance 830.496 ml -556.748 ml 421.596 ml medications Current Medications Medications Dose Ordered Sig/Milvia Route Start Time Stop Time Status Last Admin Dose Admin Ondansetron HCl 4 mg Q4HP PRN IV 06/20/24 07:15 Nitroglycerin 0.4 mg Q5MINP PRN SL 06/20/24 07:15 Morphine Sulfate 2 mg Q30M PRN IV 06/20/24 07:15 Albuterol 2.5 mg Q4HR NEB 06/20/24 10:00 06/24/24 10:05 2.5 MG Ipratropium [place] 0.5 mg Q4HPRN PRN NEB 06/20/24 07:30 Cancel Methylprednisolone Sodium Succinate 40 mg Q8HR IV 06/20/24 14:00 06/24/24 05:12 40 MG Pantoprazole Sodium 40 mg DAILY IV 06/20/24 10:00 Hold 06/23/24 08:04 40 MG Budesonide 0.5 mg BID NEB 06/20/24 10:00 06/24/24 10:05 0.5 MG Midazolam HCl 50 ml @ 1 mls/hr Q24H IV 06/20/24 07:45 06/22/24 21:43 5 MLS/HR Albuterol 2.5 mg Q4HPRN PRN NEB 06/20/24 08:00 Cancel Ipratropium [place] 0.5 mg Q4HR NEB 06/20/24 10:00 06/24/24 10:05 0.5 MG Ceftriaxone Sodium 50 ml @ 100 mls/hr DAILY@09 IV 06/20/24 09:00 06/24/24 09:25 100 MLS/HR Azithromycin 250 ml @ 125 mls/hr DAILY IV 06/20/24 10:00 06/24/24 10:29 125 MLS/HR Enoxaparin Sodium 30 mg DAILY SC 06/20/24 10:00 UNV Famotidine 20 mg DAILY PO 06/20/24 10:00 06/23/24 08:04 20 MG Fentanyl Citrate 250 ml @ 2.5 mls/hr Q24H IV 06/20/24 08:30 06/24/24 02:39 10 MLS/HR Enoxaparin Sodium 40 mg DAILY SC 06/20/24 10:00 06/24/24 10:29 40 MG Norepinephrine Bitartrate 250 ml @ 3.75 mls/hr Q24H IV 06/20/24 09:01 06/20/24 09:16 3.75 MLS/HR Dexmedetomidine HCl 400 mcg/ Dextrose 100 ml @ 4.09 mls/hr Q24H IV 06/22/24 10:00 06/23/24 00:30 4.09 MLS/HR Propofol 100 ml @ 2.454 mls/ hr Q24H IV 06/22/24 15:45 06/24/24 04:13 24.54 MLS/HR Sodium Chloride 1,000 ml @ 100 mls/hr Q10H IV 06/23/24 09:30 06/24/24 05:13 100 MLS/HR Examination: LUNGS:Normal, CVS:Normal, MSK:Normal laboratory and microbiology Laboratory Tests 06/24/24 04:12 Test 06/24/24 04:12 Range/Units Serum Glucose 154 H 74-106 mg/dL Microbiology Date/Time Source Procedure Growth Status 06/22/24 08:30 Nose MRSA Screen - Final Complete 06/20/24 08:23 Sputum Gram Stain - Final Complete 06/20/24 08:23 Sputum Respiratory Culture - Final Complete 06/20/24 05:19 Blood Blood Culture - Preliminary NO GROWTH AFTER 72 HOURS OF INCUBATION. Resulted Problem List/Assessment/Plan Problem List/Assessment/Plan Acute kidney injury secondary hemodynamic mediated Hypernatremia due to insensible water loss Acute on chronic respiratory failure, patient intubated on ventilator COPD exacerbation NSTEMI AFib Recommendations Kidney function is improving Increased urine output Mena catheter Strict I&Os DC furosemide IVF half NS at 100 cc/hour kidney ultrasound reported bilateral pelvic fullness, no stone IV antibiotics IV steroids Cardiology consult We will continue to follow Plan discussed with: Other (Nurse) Dietary Evaluation Review Comments: 1. If EN/GI accessible, Glucerna 45ml/hr, 65g pro 1296 kcal, satisfies pt's needs for Pro 80 %, Kcal 80%, in additon Propofol provides 110 kcal/100ml fat kcal Thus pt will have 1406 total kcal, supporting pt 's energy needs is increasedd to 86%. 2. If EN/GI not a option, NPO > 7 days, offer TPN per pharmacy 3. If pt off vent, passess speech eval, offer 2 g Na CCHO-60 low fat Low cholesterol diet. Expected Outcomes/Goals: gradually healed wounds, graudal weight loss, controlled blood glucose. EDUARDO CERDA MD Jun 24, 2024 11:00
--- NOTE | 2024-06-24 12:30 | DVHPN2 ---
Consult Progress Note Subjective Other Systems: Patient in normal sinus rhythm at time of assessment Patient remains chemically sedated and mechanically ventilated Objective vital signs Vital Sign Date Time Temp Pulse Resp B/P (MAP) Pulse Ox O2 Delivery O2 Flow Rate FiO2 06/24/24 11:45 56 18 117/66 (83) 98 35 06/24/24 10:00 Mechanical Ventilator+ 06/24/24 07:00 97.9 208.2 Total Intake and Output 06/23/24 06/23/24 06/24/24 15:00 23:00 07:00 Intake Total 830.496 ml 1013.252 ml 1071.596 ml Output Total 1570 ml 650 ml Balance 830.496 ml -556.748 ml 421.596 ml medications Current Medications Medications Dose Ordered Sig/Milvia Route Start Time Stop Time Status Last Admin Dose Admin Ondansetron HCl 4 mg Q4HP PRN IV 06/20/24 07:15 Nitroglycerin 0.4 mg Q5MINP PRN SL 06/20/24 07:15 Morphine Sulfate 2 mg Q30M PRN IV 06/20/24 07:15 Albuterol 2.5 mg Q4HR NEB 06/20/24 10:00 06/24/24 10:05 2.5 MG Ipratropium [place] 0.5 mg Q4HPRN PRN NEB 06/20/24 07:30 Cancel Methylprednisolone Sodium Succinate 40 mg Q8HR IV 06/20/24 14:00 06/24/24 05:12 40 MG Pantoprazole Sodium 40 mg DAILY IV 06/20/24 10:00 Hold 06/23/24 08:04 40 MG Budesonide 0.5 mg BID NEB 06/20/24 10:00 06/24/24 10:05 0.5 MG Midazolam HCl 50 ml @ 1 mls/hr Q24H IV 06/20/24 07:45 06/22/24 21:43 5 MLS/HR Albuterol 2.5 mg Q4HPRN PRN NEB 06/20/24 08:00 Cancel Ipratropium [place] 0.5 mg Q4HR [facility] 06/20/24 10:00 06/24/24 10:05 0.5 MG Ceftriaxone Sodium 50 ml @ 100 mls/hr DAILY@09 IV 06/20/24 09:00 06/24/24 09:25 100 MLS/HR Azithromycin 250 ml @ 125 mls/hr DAILY IV 06/20/24 10:00 06/24/24 10:29 125 MLS/HR Enoxaparin Sodium 30 mg DAILY SC 06/20/24 10:00 UNV Famotidine 20 mg DAILY PO 06/20/24 10:00 06/23/24 08:04 20 MG Fentanyl Citrate 250 ml @ 2.5 mls/hr Q24H IV 06/20/24 08:30 06/24/24 02:39 10 MLS/HR Enoxaparin Sodium 40 mg DAILY SC 06/20/24 10:00 06/24/24 10:29 40 MG Norepinephrine Bitartrate 250 ml @ 3.75 mls/hr Q24H IV 06/20/24 09:01 06/20/24 09:16 3.75 MLS/HR Dexmedetomidine HCl 400 mcg/ Dextrose 100 ml @ 4.09 mls/hr Q24H IV 06/22/24 10:00 06/23/24 00:30 4.09 MLS/HR Propofol 100 ml @ 2.454 mls/ hr Q24H IV 06/22/24 15:45 06/24/24 11:54 14.724 MLS/HR Sodium Chloride 1,000 ml @ 100 mls/hr Q10H IV 06/23/24 09:30 06/24/24 05:13 100 MLS/HR Examination: GENERAL:Abnormal, LUNGS:Abnormal (Mechanically ventilated, FiO2 35%, PEEP 5.0), CVS:Normal, NEURO:Abnormal (Patient remains chemically sedated on fentanyl and propofol) laboratory and microbiology Laboratory Tests 06/24/24 04:12 Test 06/24/24 04:12 Range/Units Serum Glucose 154 H 74-106 mg/dL Problem List/Assessment/Plan Problem List/Assessment/Plan Transient second degree type II atrioventricular block Severe COPD exacerbation Acute on chronic hypoxic respiratory failure NSTEMI, likely type 2 secondary to above Hx hypertension Dyslipidemia Prediabetes Acute kidney injury Nicotine dependence Plan/Recommendation (Dr. Moseley): Case discussed with . Patient noted to have episodes of transient second-degree type 2 AV block as well as pauses overnight (06/24/24). At this time, we will continue to monitor closely. We will recommend to avoid all AV ivania blocking agents. The patient needs to be on continuous ECG monitoring. Patient currently mechanically ventilated and chemically sedated. Pending CPAP trial tomorrow. Patient now in sinus rhythm on hall monitor, no other cardiac events seen this time. Further recommendations per clinical course and progression. Thank you for allowing us to care for this patient. Please call with any questions or concerns. Critical care time: 35 min. This medical document was created using an electronic medical record system with voice recognition software and computerized dictation system. Although this document has been carefully reviewed, there might still be some phonetic and typographical errors. Occasional wrong-word or ``sound-alike substitutions may have occurred due to the inherent limitations of voice recognition software. These areas are purely typographical due to imperfections of the software programs and do not reflect any compromise in the patient's medical care. Please read the chart carefully and recognize, using context, where these substitutions have occurred. Plan discussed with: Other (Bedside RN) Dietary Evaluation Review Comments: 1. If EN/GI accessible, Glucerna 45ml/hr, 65g pro 1296 kcal, satisfies pt's needs for Pro 80 %, Kcal 80%, in additon Propofol provides 110 kcal/100ml fat kcal Thus pt will have 1406 total kcal, supporting pt 's energy needs is increasedd to 86%. 2. If EN/GI not a option, NPO > 7 days, offer TPN per pharmacy 3. If pt off vent, passess speech eval, offer 2 g Na CCHO-60 low fat Low cholesterol diet. Expected Outcomes/Goals: gradually healed wounds, graudal weight loss, controlled blood glucose. Date of Service: Jun 24, 2024 Billing Provider: DANE MOSELEY MD Common Visit Codes: [id number] CARE 30-74 MIN SAMM YOUSSEF Jun 24, 2024 12:30
--- NOTE | 2024-06-24 13:40 | DVHPN2 ---
Subjective Continues to be intubated and sedated Reviewed: Care Plan, H&P, Labs, Medications, Previous Orders, Radiology, Other (Consultations) Changes from previous H/P or p: No Changes Objective Vitals Vital Signs Date Time Temp Pulse Resp B/P (MAP) Pulse Ox O2 Delivery O2 Flow Rate FiO2 06/24/24 12:00 35 06/24/24 12:00 18 98 Mechanical Ventilator+ 06/24/24 12:00 58 06/24/24 11:45 117/66 (83) 06/24/24 07:00 97.9 208.2 Intake/Output Intake and Output 06/24/24 07:00 Intake Total 2915.344 ml Output Total 2220 ml Balance 695.344 ml Intake Oral 60 ml IV Total 2855.344 ml Output Urine Total 2220 ml Urine/Stool Mix 0 ml General Appearance: Other (Intubated and sedated) HEENT: Atraumatic Lungs: Other (Mechanical ventilation sounds) Cardiovascular: Normal S1, Normal S2, Other (Bradycardia) Abdomen: Normal bowel sounds, Soft Genitourinary: Other (Bloom's catheter) Neuro: Other (Sedated) Psych/Mental Status: Other (Sedated) Medications Current Medications Medications Dose Ordered Sig/Milvia Route Start Time Stop Time Status Last Admin Dose Admin Ondansetron HCl 4 mg Q4HP PRN IV 06/20/24 07:15 Nitroglycerin 0.4 mg Q5MINP PRN SL 06/20/24 07:15 Morphine Sulfate 2 mg Q30M PRN IV 06/20/24 07:15 Albuterol 2.5 mg Q4HR NEB 06/20/24 10:00 06/24/24 10:05 2.5 MG Ipratropium [place] 0.5 mg Q4HPRN PRN NEB 06/20/24 07:30 Cancel Methylprednisolone Sodium Succinate 40 mg Q8HR IV 06/20/24 14:00 06/24/24 13:02 40 MG Pantoprazole Sodium 40 mg DAILY IV 06/20/24 10:00 Hold 06/23/24 08:04 40 MG Budesonide 0.5 mg BID NEB 06/20/24 10:00 06/24/24 10:05 0.5 MG Midazolam HCl 50 ml @ 1 mls/hr Q24H IV 06/20/24 07:45 06/22/24 21:43 5 MLS/HR Albuterol 2.5 mg Q4HPRN PRN NEB 06/20/24 08:00 Cancel Ipratropium [place] 0.5 mg Q4HR NEB 06/20/24 10:00 06/24/24 10:05 0.5 MG Ceftriaxone Sodium 50 ml @ 100 mls/hr DAILY@09 IV 06/20/24 09:00 06/24/24 09:25 100 MLS/HR Azithromycin 250 ml @ 125 mls/hr DAILY IV 06/20/24 10:00 06/24/24 10:29 125 MLS/HR Enoxaparin Sodium 30 mg DAILY SC 06/20/24 10:00 UNV Famotidine 20 mg DAILY PO 06/20/24 10:00 06/23/24 08:04 20 MG Fentanyl Citrate 250 ml @ 2.5 mls/hr Q24H IV 06/20/24 08:30 06/24/24 02:39 10 MLS/HR Enoxaparin Sodium 40 mg DAILY SC 06/20/24 10:00 06/24/24 10:29 40 MG Norepinephrine Bitartrate 250 ml @ 3.75 mls/hr Q24H IV 06/20/24 09:01 06/20/24 09:16 3.75 MLS/HR Dexmedetomidine HCl 400 mcg/ Dextrose 100 ml @ 4.09 mls/hr Q24H IV 06/22/24 10:00 06/23/24 00:30 4.09 MLS/HR Propofol 100 ml @ 2.454 mls/ hr Q24H IV 06/22/24 15:45 06/24/24 11:54 14.724 MLS/HR Sodium Chloride 1,000 ml @ 100 mls/hr Q10H IV 06/23/24 09:30 06/24/24 05:13 100 MLS/HR Laboratory Results Laboratory Tests 06/24/24 04:12 Chemistry Test 06/24/24 04:12 Calcium Level 9.1 mg/dL (8.7-10.4) Magnesium Level 2.7 mg/dL (1.6-2.6) H Urinalysis Test 06/20/24 11:23 06/23/24 10:15 Urine Hyaline Casts Few /lpf (0 - 2) Urine Color Light-yellow (Yellow) Urine Clarity Clear (Clear) Urine pH 6.0 (5.0-9.0) Urine Specific [place] 1.013 (1.001-1.035) Urine Protein Negative (Negative) Urine Ketones Negative (Negative) Urine Blood 2+ /uL (Negative) H Urine Nitrite Negative (Negative) Urine Bilirubin Negative (Negative) Urine Urobilinogen Normal mg/dL (Negative) Urine Leukocyte Esterase Negative /uL (Negative) Urine RBC 115 /hpf (0 - 3) Urine Microscopic WBC 2 /HPF (0-3) Urine Squamous Epithelial Cells None seen /hpf (<5) Urine Bacteria None seen /hpf (None Seen) Urine Mucus Few (None Seen) Urine Creatinine 69.90 mg/dL (30.0-125.0) Urine Protein/Creatinine Ratio 0.21 Urine Sodium 58 mmol/L (40-220) Urine Glucose Normal mg/dL (Normal) Urine Total Protein 14.8 mg/dL (1-14) H Microbiology Microbiology Date/Time Source Procedure Growth Status 06/22/24 08:30 Nose MRSA Screen - Final Complete 06/20/24 08:23 Sputum Gram Stain - Final Complete 06/20/24 08:23 Sputum Respiratory Culture - Final Complete 06/20/24 05:19 Blood Blood Culture - Preliminary NO GROWTH AFTER 72 HOURS OF INCUBATION. Resulted Labs and/or images reviewed: Labs reviewed by me, Image(s) reviewed by me Assessment/Plan Assessment/Plan Covering Elpidio Espitia NP: #Acute on chronic hypoxic respiratory failure due to severe COPD exacerbation secondary to suspected pneumonia; continue mechanical ventilation as per pulmonology; reviewed ABGs and chest x-ray; continue IV steroids; continue nebulizers; pulmonology is following; continue close monitoring #Septic shock due to suspected Gram-positive versus Gram-negative pneumonia; off IV vasopressors; continue IV antibiotics; continue close monitoring #JOHANA; most likely vasomotor nephropathy in the setting of septic shock; nephrology is following; avoid nephrotoxic agents; continue close monitoring #Hypernatremia due to insensible water loss; nephrology is following; continue close monitoring #Transient second degree type II atrioventricular block; telemetry; cardiology is following; continue close monitoring #NSTEMI, likely type 2 CO; demand ischemia; secondary to above; cardiology is following; continue close monitoring #Hypertensive heart disease; to adjust antihypertensive medications as indicated; continue close monitoring #Tobacco use disorder; to addressed with the patient is awake; continue close monitoring 110 minutes of critical care time. Late Entry. This medical document was created using an electronic medical record system with computerized dictation system. Although this document has been carefully reviewed, there might still be some phonetic and typographical errors. These areas are purely typographical due to imperfections of the software programs, and do not reflect any compromise in the patient's medical care. Plan discussed with: Other (Nurse) Date of Service: Jun 24, 2024 Billing Provider: ORACIO MARTINEZ MD Common Visit Codes: [id number] CARE 30-74 MIN (110 minutes), [id number] CARE-EACH +30MIN ORACIO MARTINEZ MD Jun 24, 2024 13:40
[2024-06-24] MEDS: QUEtiapine FUMARATE 25 MG TAB PO SCH (22:34)
--- NOTE | 2024-06-24 23:23 | DVHPN2 ---
Progress Note - Dictate Date Seen: Jun 24, 2024 Medical Necessity Reason Pt with a Central, PICC or Fol: Yes The following are medically ne: Mena Catheter Reason for mena catheter: Strict I&O Subjective Patient seen and examined at bedside. Sedated, intubated on mechanical ventilator. Overnight events reviewed. vital signs Vital Sign Date Time Temp Pulse Resp B/P (MAP) Pulse Ox O2 Delivery O2 Flow Rate FiO2 06/24/24 21:53 55 18 119/70 (86) 100 30 06/24/24 18:30 99.0 210.2 06/24/24 18:00 Mechanical Ventilator+ Total Intake and Output 06/23/24 06/23/24 06/24/24 15:00 23:00 07:00 Intake Total 830.496 ml 1013.252 ml 1071.596 ml Output Total 1570 ml 650 ml Balance 830.496 ml -556.748 ml 421.596 ml medications Current Medications Medications Dose Ordered Sig/Milvia Route Start Time Stop Time Status Last Admin Dose Admin Ondansetron HCl 4 mg Q4HP PRN IV 06/20/24 07:15 Nitroglycerin 0.4 mg Q5MINP PRN SL 06/20/24 07:15 Morphine Sulfate 2 mg Q30M PRN IV 06/20/24 07:15 Albuterol 2.5 mg Q4HR NEB 06/20/24 10:00 06/24/24 21:53 2.5 MG Ipratropium Fowler 0.5 mg Q4HPRN PRN NEB 06/20/24 07:30 Cancel Methylprednisolone Sodium Succinate 40 mg Q8HR IV 06/20/24 14:00 06/24/24 13:02 40 MG Pantoprazole Sodium 40 mg DAILY IV 06/20/24 10:00 Hold 06/23/24 08:04 40 MG Budesonide 0.5 mg BID NEB 06/20/24 10:00 06/24/24 18:27 0.5 MG Midazolam HCl 50 ml @ 1 mls/hr Q24H IV 06/20/24 07:45 06/22/24 21:43 5 MLS/HR Albuterol 2.5 mg Q4HPRN PRN NEB 06/20/24 08:00 Cancel Ipratropium Fowler 0.5 mg Q4HR NEB 06/20/24 10:00 06/24/24 21:53 0.5 MG Ceftriaxone Sodium 50 ml @ 100 mls/hr DAILY@09 IV 06/20/24 09:00 06/24/24 09:25 100 MLS/HR Azithromycin 250 ml @ 125 mls/hr DAILY IV 06/20/24 10:00 06/24/24 10:29 125 MLS/HR Enoxaparin Sodium 30 mg DAILY SC 06/20/24 10:00 UNV Famotidine 20 mg DAILY PO 06/20/24 10:00 06/23/24 08:04 20 MG Fentanyl Citrate 250 ml @ 2.5 mls/hr Q24H IV 06/20/24 08:30 06/24/24 16:51 22.5 MLS/HR Enoxaparin Sodium 40 mg DAILY SC 06/20/24 10:00 06/24/24 10:29 40 MG Norepinephrine Bitartrate 250 ml @ 3.75 mls/hr Q24H IV 06/20/24 09:01 06/20/24 09:16 3.75 MLS/HR Dexmedetomidine HCl 400 mcg/ Dextrose 100 ml @ 4.09 mls/hr Q24H IV 06/22/24 10:00 06/23/24 00:30 4.09 MLS/HR Propofol 100 ml @ 2.454 mls/ hr Q24H IV 06/22/24 15:45 06/24/24 18:26 24.54 MLS/HR Sodium Chloride 1,000 ml @ 100 mls/hr Q10H IV 06/23/24 09:30 06/24/24 05:13 100 MLS/HR Quetiapine Fumarate 50 mg BID PO 06/24/24 22:00 objective Gen.: Patient lying in bed in medical ICU. Sedated, intubated on mechanical ventilator. Head: Normocephalic, atraumatic. Eyes: PERRLA. Ears: Normal external anatomy. Throat: Endotracheal tube and orogastric tube in place. Neck: Supple, trachea midline. Chest: Transmitted breath sounds bilaterally. Decreased air entry bilaterally. No wheezing. Bibasilar crackles. Cardiovascular: Positive S1, positive S2. Regular rate and rhythm. Abdomen: Positive bowel sounds in all 4 quadrants. Soft, nontender, nondistended. : Mena in place. Normal external genitalia. Rectal: Deferred. Skin: Warm, dry. Intact. Extremities: 2+ radial pulses bilaterally. No lower extremity edema. Neuro: Sedated. laboratory and microbiology Laboratory Tests 06/24/24 04:12 Test 06/24/24 04:12 Range/Units Serum Glucose 154 H 74-106 mg/dL Assessment/Plan Impression: Acute hypoxic respiratory failure On mechanical ventilator COPD exacerbation Nicotine dependence Elevated troponin Atrial fibrillation Hypertension Events: Remains on vent support On AC mode; RR 18, VT 550, PEEP 5, FiO2 30% Sedated on Propofol, Fentanyl Start Seroquel 50 mg via NGT q.12 hours Continue bronchodilators Continue antibiotics IV fluids at 100 mL/hr. Off Levophed, hemodynamically stable. Chest x-ray demonstrates no consolidation, pleural effusion or pneumothorax. Devices in place. Taper sedation as tolerated CPAP in the AM. Labs and imaging reviewed. Rest of plan as noted below. Plan: s/p intubation on mechanical ventilator. CXR image and report reviewed. Devices in place. Pulmonary congestion. No pneumothorax. No pleural effusion. ABG reviewed, compensated. Labs reviewed, within normal limits. On AC mode; RR 18, VT 550, PEEP 5, FiO2 30% Titrate FIO2 to keep O2 saturation above 90%. VAP bundle. Daily ABG and CXR while intubated Sedate for ventilator synchrony Continue bronchodilators. IV steroids Continue antibiotics. Start pressors if necessary to maintain a mean arterial blood pressure greater than 65 mmHg. Diurese as tolerated w/ Lasix Monitor renal function Monitor electrolytes. Supplement as necessary. Monitor ins and outs. Maintain euvolemia. Taper sedation as tolerated CPAP with PS 8, PEEP of 5 OK to increase PS to max 20 cmH2O to achieve tidal volume 500-600 mL. GI prophylaxis. DVT prophylaxis. Prognosis: Poor given patient's multiple co-morbidities. Condition: Critical Rest of plan per hospitalist and other consultants. A total of 35 minutes of critical care time was spent reviewing the patient record, examining the patient, making a diagnostic and therapeutic plan, discussing this plan with the medical personnel, following up on diagnostic studies and following the patient for clinical stability excluding any and all procedures. At least 50% of this time was spent in direct, [id number] contact. Thank you, JENNIFER Espitia, for allowing me to participate in this patient's care. Further recommendations will depend on the patient's clinical course. Please do not hesitate to contact me if you have any questions or concerns. This medical document was created using an electronic medical record system with [employer] dictation system. Although these documentations are being carefully reviewed, there may still be some phonetic and typographical changes. The errors are purely typographical, due to imperfection on the software program, and do not reflect any compromise in the patient's medical care. Dietary Evaluation Review Comments: 1. If EN/GI accessible, Glucerna 45ml/hr, 65g pro 1296 kcal, satisfies pt's needs for Pro 80 %, Kcal 80%, in additon Propofol provides 110 kcal/100ml fat kcal Thus pt will have 1406 total kcal, supporting pt 's energy needs is increasedd to 86%. 2. If EN/GI not a option, NPO > 7 days, offer TPN per pharmacy 3. If pt off vent, passess speech eval, offer 2 g Na CCHO-60 low fat Low cholesterol diet. Expected Outcomes/Goals: gradually healed wounds, graudal weight loss, controlled blood glucose. Plan discussed with: Other (ADELINE Batista) Critical Care Time(min): 35 ILYA GARCES MD Jun 24, 2024 23:23
[2024-06-25] VITALS (109 sets, daily range): BP systolic 91–169; BP diastolic 55–106; PULSE 51–117; RESP 8–24; TEMP 97–99.9; O2SAT 92–100
[2024-06-25 04:00] LABS: Basophils # (auto) 0 10 ^3/uL (0-0.2); Basophils % (auto) 0.3 % (0.0-2.0); Eosinophils # (auto) 0 10 ^3/uL (0-0.8); Eosinophils % (auto) 0.1 % (0.0-7.0); Hemoglobin 10.2 g/dL (13.5-17.5); Lymphocytes # (auto) 0.4 10 ^3/uL (0.4-5.4); Lymphocytes % (auto) 5.2 % (10.0-50.0); Mean Corpuscular Hemoglobin 28.3 pg (28.0-32.0); Mean Corpuscular Hgb Conc. 31.7 g/dL (32.0-36.0); Mean Corpuscular Volume 89.1 fL (80.0-100.0); Monocytes # (auto) 0.5 10 ^3/uL (0-1.3); Monocytes % (auto) 6.6 % (0.0-12.0); Neutrophils # (auto) 6.5 10 ^3/uL (1.6-8.6); Neutrophils % (auto) 87.8 % (37.0-80.0); Nucleated Red Blood Cells % 0.4 %; Platelet Count (auto) 291 10^3/uL (140-450); Red Blood Cells 3.59 10^6/uL (4.5-5.90); Red Cell Distribution Width 16.5 % (11.8-14.3); White Blood Cell 7.4 10^3/uL (4.4-10.8)
[2024-06-25 04:20] LABS: Alanine Aminotransferase 24 U/L (7-40); Albumin 3.7 g/dL (3.2-4.8); Anion Gap 5 (5-15); Aspartate Aminotransferase 28 U/L (13-40); BUN/Creatinine Ratio 50.7 (10.0-20.0); Bilirubin, Total 0.3 mg/dL (0.2-1.0); Calcium 9.1 mg/dL (8.7-10.4); Carbon Dioxide 31 mmol/L (20-31); Potassium 5.1 mmol/L (3.5-5.1)
[2024-06-25 04:25] LABS: Chloride 111 mmol/L (98-107); Glucose 155 mg/dL (74-106); Sodium 147 mmol/L (136-145)
[2024-06-25 04:26] LABS: Alkaline Phosphatase 37 U/L (46-116); Blood Urea Nitrogen 35 mg/dL (9-23); Total Protein 5.4 g/dL (5.7-8.2)
--- NOTE | 2024-06-25 05:24 | DVH ---
CHEST RADIOGRAPH Indication: Intubated. Technique: Single frontal view of the chest was obtained Comparison: XY CHEST XRAY 1 VIEW on DOS: 06/24/24, XY CHEST XRAY 1 VIEW on DOS: 06/23/24, XY CHEST PORT ABLE on DOS: 06/23/24 IMPRESSION: Heart appears stable in size. Lungs appear clear without focal airspace opacity, effusion, or pneumo thorax. Support lines and tubes appear unchanged in position.
--- NOTE | 2024-06-25 06:40 | DVHPN2 ---
Subjective Continues to be intubated and sedated Reviewed: Care Plan, H&P, Labs, Medications, Previous Orders, Radiology, Other (Consultations) Changes from previous H/P or p: No Changes Objective Vitals Vital Signs Date Time Temp Pulse Resp B/P (MAP) Pulse Ox O2 Delivery O2 Flow Rate FiO2 06/25/24 06:00 103/66 06/25/24 05:45 98.4 56 18 99 209.1 06/25/24 04:10 40 06/25/24 00:00 Mechanical Ventilator+ Intake/Output Intake and Output 06/25/24 07:00 Intake Total 3635.620 ml Output Total 550 ml Balance 3085.620 ml Intake Oral 60 ml IV Total 3450.620 ml Tube Feeding 125 ml Output Urine Total 550 ml General Appearance: Other (Intubated and sedated) HEENT: Atraumatic Lungs: Other (Mechanical ventilation sounds) Cardiovascular: Normal S1, Normal S2, Other (Bradycardia) Abdomen: Normal bowel sounds, Soft Genitourinary: Other (Bloom's catheter) Neuro: Other (Sedated) Psych/Mental Status: Other (Sedated) Medications Current Medications Medications Dose Ordered Sig/Milvia Route Start Time Stop Time Status Last Admin Dose Admin Ondansetron HCl 4 mg Q4HP PRN IV 06/20/24 07:15 Nitroglycerin 0.4 mg Q5MINP PRN SL 06/20/24 07:15 Morphine Sulfate 2 mg Q30M PRN IV 06/20/24 07:15 Albuterol 2.5 mg Q4HR NEB 06/20/24 10:00 06/25/24 01:49 2.5 MG Ipratropium [place] 0.5 mg Q4HPRN PRN NEB 06/20/24 07:30 Cancel Methylprednisolone Sodium Succinate 40 mg Q8HR IV 06/20/24 14:00 06/25/24 05:41 40 MG Pantoprazole Sodium 40 mg DAILY IV 06/20/24 10:00 Hold 06/23/24 08:04 40 MG Budesonide 0.5 mg BID NEB 06/20/24 10:00 06/24/24 18:27 0.5 MG Midazolam HCl 50 ml @ 1 mls/hr Q24H IV 06/20/24 07:45 06/22/24 21:43 5 MLS/HR Albuterol 2.5 mg Q4HPRN PRN NEB 06/20/24 08:00 Cancel Ipratropium [place] 0.5 mg Q4HR NEB 06/20/24 10:00 06/25/24 01:49 0.5 MG Ceftriaxone Sodium 50 ml @ 100 mls/hr DAILY@09 IV 06/20/24 09:00 06/24/24 09:25 100 MLS/HR Azithromycin 250 ml @ 125 mls/hr DAILY IV 06/20/24 10:00 06/24/24 10:29 125 MLS/HR Enoxaparin Sodium 30 mg DAILY SC 06/20/24 10:00 UNV Famotidine 20 mg DAILY PO 06/20/24 10:00 06/23/24 08:04 20 MG Fentanyl Citrate 250 ml @ 2.5 mls/hr Q24H IV 06/20/24 08:30 06/24/24 23:28 32.5 MLS/HR Enoxaparin Sodium 40 mg DAILY SC 06/20/24 10:00 06/24/24 10:29 40 MG Norepinephrine Bitartrate 250 ml @ 3.75 mls/hr Q24H IV 06/20/24 09:01 06/20/24 09:16 3.75 MLS/HR Dexmedetomidine HCl 400 mcg/ Dextrose 100 ml @ 4.09 mls/hr Q24H IV 06/22/24 10:00 06/23/24 00:30 4.09 MLS/HR Propofol 100 ml @ 2.454 mls/ hr Q24H IV 06/22/24 15:45 06/25/24 03:33 17.178 MLS/HR Sodium Chloride 1,000 ml @ 100 mls/hr Q10H IV 06/23/24 09:30 06/24/24 22:53 100 MLS/HR Quetiapine Fumarate 50 mg BID PO 06/24/24 22:00 06/24/24 22:34 50 MG Laboratory Results Laboratory Tests 06/25/24 03:40 Chemistry Test 06/25/24 03:40 Albumin 3.7 g/dL (3.2-4.8) Calcium Level 9.1 mg/dL (8.7-10.4) Total Protein 5.4 g/dL (5.7-8.2) L LFT Test 06/25/24 03:40 Alanine Aminotransferase (ALT) 24 U/L (7-40) Alkaline Phosphatase 37 U/L (46-116) L Aspartate Amino Transferase (AST) 28 U/L (13-40) Total Bilirubin 0.3 mg/dL (0.2-1.0) Urinalysis Test 06/20/24 11:23 06/23/24 10:15 Urine Hyaline Casts Few /lpf (0 - 2) Urine Color Light-yellow (Yellow) Urine Clarity Clear (Clear) Urine pH 6.0 (5.0-9.0) Urine Specific Brandon 1.013 (1.001-1.035) Urine Protein Negative (Negative) Urine Ketones Negative (Negative) Urine Blood 2+ /uL (Negative) H Urine Nitrite Negative (Negative) Urine Bilirubin Negative (Negative) Urine Urobilinogen Normal mg/dL (Negative) Urine Leukocyte Esterase Negative /uL (Negative) Urine RBC 115 /hpf (0 - 3) Urine Microscopic WBC 2 /HPF (0-3) Urine Squamous Epithelial Cells None seen /hpf (<5) Urine Bacteria None seen /hpf (None Seen) Urine Mucus Few (None Seen) Urine Creatinine 69.90 mg/dL (30.0-125.0) Urine Protein/Creatinine Ratio 0.21 Urine Sodium 58 mmol/L (40-220) Urine Glucose Normal mg/dL (Normal) Urine Total Protein 14.8 mg/dL (1-14) H Microbiology Microbiology Date/Time Source Procedure Growth Status 06/23/24 01:35 Urine - [place] Urine Culture - Preliminary Resulted 06/22/24 08:30 Nose MRSA Screen - Final Complete 06/20/24 08:23 Sputum Gram Stain - Final Complete 06/20/24 08:23 Sputum Respiratory Culture - Final Complete 06/20/24 05:19 Blood Blood Culture - Final NO GROWTH AFTER 5 DAYS OF INCUBATION. Complete Labs and/or images reviewed: Labs reviewed by me, Image(s) reviewed by me Assessment/Plan Assessment/Plan Covering Elpidio Espitia NP: #Acute on chronic hypoxic respiratory failure due to severe COPD exacerbation secondary to suspected pneumonia; continue mechanical ventilation as per pulmonology; reviewed ABGs and chest x-ray; continue IV steroids; continue nebulizers; pulmonology is following; continue close monitoring #Septic shock due to suspected Gram-positive versus Gram-negative pneumonia; off IV vasopressors; continue IV antibiotics; continue close monitoring #JOHANA; most likely vasomotor nephropathy in the setting of septic shock; nephrology is following; avoid nephrotoxic agents; continue close monitoring #Hypernatremia due to insensible water loss; nephrology is following; continue close monitoring #Transient second degree type II atrioventricular block; telemetry; cardiology is following; continue close monitoring #NSTEMI, likely type 2 ME; demand ischemia; secondary to above; cardiology is following; continue close monitoring #Hypertensive heart disease; to adjust antihypertensive medications as indicated; continue close monitoring #Tobacco use disorder; to addressed with the patient is awake; continue close monitoring 55 minutes of critical care time. Late Entry. This medical document was created using an electronic medical record system with computerized dictation system. Although this document has been carefully reviewed, there might still be some phonetic and typographical errors. These areas are purely typographical due to imperfections of the software programs, and do not reflect any compromise in the patient's medical care. Plan discussed with: Other (Nurse) My Orders Orders - ORACIO MARTINEZ MD Procedure Category Date Status Time Chest Xray 1 View XY 06/25/24 Resulted 04:00 Abg W/ Co-Ox RT 06/25/24 Logged 06:00 Date of Service: Jun 25, 2024 Billing Provider: ORACIO MARTINEZ MD Common Visit Codes: [id number] CARE 30-74 MIN (55 minutes) ORACIO MARTINEZ MD Jun 25, 2024 06:40
[2024-06-25 07:11] LABS: Base Excess -0.6 mmol/L (-2.0-3.0)
--- NOTE | 2024-06-25 10:36 | DVHPN2 ---
Progress Note Date Seen: Jun 25, 2024 Medical Necessity Reason Pt with a Central, PICC or Fol: Yes The following are medically ne: Mena Catheter Reason for mena catheter: Strict I&O Subjective Review of Systems: RESPIRATORY:Abnormal Other Systems: Patient seen and examined by myself today in follow-up Patient remained intubated on ventilator Objective vital signs Vital Sign Date Time Temp Pulse Resp B/P (MAP) Pulse Ox O2 Delivery O2 Flow Rate FiO2 06/25/24 10:24 60 18 112/69 (83) 95 30 06/25/24 09:45 98.2 208.8 06/25/24 08:00 Mechanical Ventilator+ Total Intake and Output 06/24/24 06/24/24 06/25/24 15:00 23:00 07:00 Intake Total 1306.284 ml 1331.636 ml 1129.924 ml Output Total 550 ml 525 ml Balance 1306.284 ml 781.636 ml 604.924 ml medications Current Medications Medications Dose Ordered Sig/Milvia Route Start Time Stop Time Status Last Admin Dose Admin Ondansetron HCl 4 mg Q4HP PRN IV 06/20/24 07:15 Nitroglycerin 0.4 mg Q5MINP PRN SL 06/20/24 07:15 Morphine Sulfate 2 mg Q30M PRN IV 06/20/24 07:15 Albuterol 2.5 mg Q4HR NEB 06/20/24 10:00 06/25/24 10:24 2.5 MG Ipratropium Villalba 0.5 mg Q4HPRN PRN NEB 06/20/24 07:30 Cancel Methylprednisolone Sodium Succinate 40 mg Q8HR IV 06/20/24 14:00 06/25/24 05:41 40 MG Pantoprazole Sodium 40 mg DAILY IV 06/20/24 10:00 Hold 06/23/24 08:04 40 MG Budesonide 0.5 mg BID NEB 06/20/24 10:00 06/25/24 10:24 0.5 MG Midazolam HCl 50 ml @ 1 mls/hr Q24H IV 06/20/24 07:45 06/22/24 21:43 5 MLS/HR Albuterol 2.5 mg Q4HPRN PRN NEB 06/20/24 08:00 Cancel Ipratropium Villalba 0.5 mg Q4HR NEB 06/20/24 10:00 06/25/24 10:24 0.5 MG Ceftriaxone Sodium 50 ml @ 100 mls/hr DAILY@09 IV 06/20/24 09:00 06/24/24 09:25 100 MLS/HR Azithromycin 250 ml @ 125 mls/hr DAILY IV 06/20/24 10:00 06/24/24 10:29 125 MLS/HR Enoxaparin Sodium 30 mg DAILY SC 06/20/24 10:00 UNV Famotidine 20 mg DAILY PO 06/20/24 10:00 06/23/24 08:04 20 MG Fentanyl Citrate 250 ml @ 2.5 mls/hr Q24H IV 06/20/24 08:30 06/25/24 08:28 17.5 MLS/HR Enoxaparin Sodium 40 mg DAILY SC 06/20/24 10:00 06/24/24 10:29 40 MG Norepinephrine Bitartrate 250 ml @ 3.75 mls/hr Q24H IV 06/20/24 09:01 06/20/24 09:16 3.75 MLS/HR Dexmedetomidine HCl 400 mcg/ Dextrose 100 ml @ 4.09 mls/hr Q24H IV 06/22/24 10:00 06/23/24 00:30 4.09 MLS/HR Propofol 100 ml @ 2.454 mls/ hr Q24H IV 06/22/24 15:45 06/25/24 03:33 17.178 MLS/HR Sodium Chloride 1,000 ml @ 100 mls/hr Q10H IV 06/23/24 09:30 06/25/24 08:28 100 MLS/HR Quetiapine Fumarate 50 mg BID PO 06/24/24 22:00 06/24/24 22:34 50 MG Examination: LUNGS:Normal, CVS:Normal, MSK:Normal laboratory and microbiology Laboratory Tests 06/25/24 03:40 Test 06/25/24 03:40 Range/Units Serum Glucose 155 H 74-106 mg/dL Microbiology Date/Time Source Procedure Growth Status 06/23/24 01:35 Urine - [place] Urine Culture - Final Complete 06/22/24 08:30 Nose MRSA Screen - Final Complete 06/20/24 08:23 Sputum Gram Stain - Final Complete 06/20/24 08:23 Sputum Respiratory Culture - Final Complete 06/20/24 05:19 Blood Blood Culture - Final NO GROWTH AFTER 5 DAYS OF INCUBATION. Complete Problem List/Assessment/Plan Problem List/Assessment/Plan Acute kidney injury secondary hemodynamic mediated Hypernatremia due to insensible water loss Acute on chronic respiratory failure, patient intubated on ventilator COPD exacerbation NSTEMI AFib Recommendations Kidney function resolved back to normal Increased urine output Hyponatremia slowly improved Mena catheter Strict I&Os DC furosemide Free water 200 NG tube q.4 hours kidney ultrasound reported bilateral pelvic fullness, no stone IV antibiotics IV steroids Cardiology consult I will sign off this case, please reconsult as needed Thank you for the consult Plan discussed with: Other (Nurse) Dietary Evaluation Review Comments: 1. If EN/GI accessible, Glucerna 45ml/hr, 65g pro 1296 kcal, satisfies pt's needs for Pro 80 %, Kcal 80%, in additon Propofol provides 110 kcal/100ml fat kcal Thus pt will have 1406 total kcal, supporting pt 's energy needs is increasedd to 86%. 2. If EN/GI not a option, NPO > 7 days, offer TPN per pharmacy 3. If pt off vent, passess speech eval, offer 2 g Na CCHO-60 low fat Low cholesterol diet. Expected Outcomes/Goals: gradually healed wounds, graudal weight loss, controlled blood glucose. EDUARDO CERDA MD Jun 25, 2024 10:35
--- NOTE | 2024-06-25 18:16 | DVHPN2 ---
Consult Progress Note Subjective Other Systems: Patient in normal sinus rhythm at time of assessment Patient remains chemically sedated and mechanically ventilated. Failed CPAP trial today per bedside RN. Patient is still having episodes of pauses on bus driver/monitor Objective vital signs Vital Sign Date Time Temp Pulse Resp B/P (MAP) Pulse Ox O2 Delivery O2 Flow Rate FiO2 06/25/24 17:33 18 98 Mechanical Ventilator+ 30 30 06/25/24 17:33 59 06/25/24 17:30 97.7 113/67 (82) 207.9 Total Intake and Output 06/24/24 06/24/24 06/25/24 15:00 23:00 07:00 Intake Total 1306.284 ml 1331.636 ml 1129.924 ml Output Total 550 ml 525 ml Balance 1306.284 ml 781.636 ml 604.924 ml medications Current Medications Medications Dose Ordered Sig/Milvia Route Start Time Stop Time Status Last Admin Dose Admin Ondansetron HCl 4 mg Q4HP PRN IV 06/20/24 07:15 Nitroglycerin 0.4 mg Q5MINP PRN SL 06/20/24 07:15 Morphine Sulfate 2 mg Q30M PRN IV 06/20/24 07:15 Albuterol 2.5 mg Q4HR NEB 06/20/24 10:00 06/25/24 18:07 2.5 MG Ipratropium Bynum 0.5 mg Q4HPRN PRN NEB 06/20/24 07:30 Cancel Methylprednisolone Sodium Succinate 40 mg Q8HR IV 06/20/24 14:00 06/25/24 13:49 40 MG Pantoprazole Sodium 40 mg DAILY IV 06/20/24 10:00 Hold 06/23/24 08:04 40 MG Budesonide 0.5 mg BID NEB 06/20/24 10:00 06/25/24 18:08 0.5 MG Midazolam HCl 50 ml @ 1 mls/hr Q24H IV 06/20/24 07:45 06/22/24 21:43 5 MLS/HR Albuterol 2.5 mg Q4HPRN PRN NEB 06/20/24 08:00 Cancel Ipratropium Bynum 0.5 mg Q4HR NEB 06/20/24 10:00 06/25/24 18:07 0.5 MG Ceftriaxone Sodium 50 ml @ 100 mls/hr DAILY@09 IV 06/20/24 09:00 06/25/24 10:36 100 MLS/HR Azithromycin 250 ml @ 125 mls/hr DAILY IV 06/20/24 10:00 06/25/24 10:35 125 MLS/HR Enoxaparin Sodium 30 mg DAILY SC 06/20/24 10:00 UNV Famotidine 20 mg DAILY PO 06/20/24 10:00 06/23/24 08:04 20 MG Fentanyl Citrate 250 ml @ 2.5 mls/hr Q24H IV 06/20/24 08:30 06/25/24 08:28 17.5 MLS/HR Enoxaparin Sodium 40 mg DAILY SC 06/20/24 10:00 06/25/24 10:40 40 MG Norepinephrine Bitartrate 250 ml @ 3.75 mls/hr Q24H IV 06/20/24 09:01 06/20/24 09:16 3.75 MLS/HR Dexmedetomidine HCl 400 mcg/ Dextrose 100 ml @ 4.09 mls/hr Q24H IV 06/22/24 10:00 06/23/24 00:30 4.09 MLS/HR Propofol 100 ml @ 2.454 mls/ hr Q24H IV 06/22/24 15:45 06/25/24 14:28 22.086 MLS/HR Sodium Chloride 1,000 ml @ 100 mls/hr Q10H IV 06/23/24 09:30 06/25/24 08:28 100 MLS/HR Quetiapine Fumarate 50 mg BID PO 06/24/24 22:00 06/25/24 10:37 50 MG Examination: GENERAL:Abnormal, LUNGS:Abnormal (Mechanically ventilated), CVS:Abnormal (Pauses seen on monitor), NEURO:Abnormal (Chemically sedated) laboratory and microbiology Laboratory Tests 06/25/24 03:40 Test 06/25/24 03:40 Range/Units Serum Glucose 155 H 74-106 mg/dL Problem List/Assessment/Plan Problem List/Assessment/Plan Transient second degree type II atrioventricular block Severe COPD exacerbation Acute on chronic hypoxic respiratory failure NSTEMI, likely type 2 secondary to above Hx hypertension Dyslipidemia Prediabetes Acute kidney injury Nicotine dependence Plan/Recommendation (Dr. Moseley): Case discussed with . Patient noted to have episodes of pauses (less than 3 seconds), overnight and this morning as seen on bus driver/monitor. At this time, we will continue to monitor closely. We will recommend to avoid all AV ivania blocking agents. The patient needs to be on continuous ECG monitoring. Patient currently mechanically ventilated and chemically sedated. Patient failed CPAP trial today. Recommend weaning patient off sedation as tolerated. Patient now in sinus rhythm on bus driver/monitor, no other cardiac events seen this time. Further recommendations per clinical course and progression. Thank you for allowing us to care for this patient. Please call with any questions or concerns. Critical care time: 35 min. This medical document was created using an electronic medical record system with voice recognition software and computerized dictation system. Although this document has been carefully reviewed, there might still be some phonetic and typographical errors. Occasional wrong-word or ``sound-alike substitutions may have occurred due to the inherent limitations of voice recognition software. These areas are purely typographical due to imperfections of the software programs and do not reflect any compromise in the patient's medical care. Please read the chart carefully and recognize, using context, where these substitutions have occurred. Plan discussed with: Other (Bedside RN) Dietary Evaluation Review Comments: 1. If EN/GI accessible, Glucerna 45ml/hr, 65g pro 1296 kcal, satisfies pt's needs for Pro 80 %, Kcal 80%, in additon Propofol provides 110 kcal/100ml fat kcal Thus pt will have 1406 total kcal, supporting pt 's energy needs is increasedd to 86%. 2. If EN/GI not a option, NPO > 7 days, offer TPN per pharmacy 3. If pt off vent, passess speech eval, offer 2 g Na CCHO-60 low fat Low cholesterol diet. Expected Outcomes/Goals: gradually healed wounds, graudal weight loss, controlled blood glucose. Date of Service: Jun 25, 2024 Billing Provider: DANE MOSELEY MD Common Visit Codes: [id number] CARE 30-74 MIN SAMM YOUSSEF Jun 25, 2024 18:16
--- NOTE | 2024-06-25 22:44 | DVHPN2 ---
Progress Note - Dictate Date Seen: Jun 25, 2024 Medical Necessity Reason Pt with a Central, PICC or Fol: Yes The following are medically ne: Mena Catheter Reason for mena catheter: Strict I&O Subjective Patient seen and examined at bedside. Sedated, intubated on mechanical ventilator. Overnight events reviewed. vital signs Vital Sign Date Time Temp Pulse Resp B/P (MAP) Pulse Ox O2 Delivery O2 Flow Rate FiO2 06/25/24 22:01 71 18 101/64 (76) 92 30 06/25/24 18:30 98.1 208.6 06/25/24 17:33 Mechanical Ventilator+ Total Intake and Output 06/24/24 06/24/24 06/25/24 15:00 23:00 07:00 Intake Total 1306.284 ml 1331.636 ml 1129.924 ml Output Total 550 ml 525 ml Balance 1306.284 ml 781.636 ml 604.924 ml medications Current Medications Medications Dose Ordered Sig/Milvia Route Start Time Stop Time Status Last Admin Dose Admin Ondansetron HCl 4 mg Q4HP PRN IV 06/20/24 07:15 Nitroglycerin 0.4 mg Q5MINP PRN SL 06/20/24 07:15 Morphine Sulfate 2 mg Q30M PRN IV 06/20/24 07:15 Albuterol 2.5 mg Q4HR NEB 06/20/24 10:00 06/25/24 21:59 2.5 MG Ipratropium [place] 0.5 mg Q4HPRN PRN NEB 06/20/24 07:30 Cancel Methylprednisolone Sodium Succinate 40 mg Q8HR IV 06/20/24 14:00 06/25/24 19:55 40 MG Pantoprazole Sodium 40 mg DAILY IV 06/20/24 10:00 Hold 06/23/24 08:04 40 MG Budesonide 0.5 mg BID NEB 06/20/24 10:00 06/25/24 18:08 0.5 MG Midazolam HCl 50 ml @ 1 mls/hr Q24H IV 06/20/24 07:45 06/22/24 21:43 5 MLS/HR Albuterol 2.5 mg Q4HPRN PRN NEB 06/20/24 08:00 Cancel Ipratropium [place] 0.5 mg Q4HR NEB 06/20/24 10:00 06/25/24 21:59 0.5 MG Ceftriaxone Sodium 50 ml @ 100 mls/hr DAILY@09 IV 06/20/24 09:00 06/25/24 10:36 100 MLS/HR Azithromycin 250 ml @ 125 mls/hr DAILY IV 06/20/24 10:00 06/25/24 10:35 125 MLS/HR Enoxaparin Sodium 30 mg DAILY SC 06/20/24 10:00 UNV Famotidine 20 mg DAILY PO 06/20/24 10:00 06/23/24 08:04 20 MG Fentanyl Citrate 250 ml @ 2.5 mls/hr Q24H IV 06/20/24 08:30 06/25/24 20:57 2.5 MLS/HR Enoxaparin Sodium 40 mg DAILY SC 06/20/24 10:00 06/25/24 10:40 40 MG Norepinephrine Bitartrate 250 ml @ 3.75 mls/hr Q24H IV 06/20/24 09:01 06/20/24 09:16 3.75 MLS/HR Dexmedetomidine HCl 400 mcg/ Dextrose 100 ml @ 4.09 mls/hr Q24H IV 06/22/24 10:00 06/23/24 00:30 4.09 MLS/HR Propofol 100 ml @ 2.454 mls/ hr Q24H IV 06/22/24 15:45 06/25/24 19:48 22.086 MLS/HR Sodium Chloride 1,000 ml @ 100 mls/hr Q10H IV 06/23/24 09:30 06/25/24 20:30 100 MLS/HR Quetiapine Fumarate 50 mg BID PO 06/24/24 22:00 06/25/24 19:55 50 MG objective Gen.: Patient lying in bed in medical ICU. Sedated, intubated on mechanical ventilator. Head: Normocephalic, atraumatic. Eyes: PERRLA. Ears: Normal external anatomy. Throat: Endotracheal tube and orogastric tube in place. Neck: Supple, trachea midline. Chest: Transmitted breath sounds bilaterally. Decreased air entry bilaterally. No wheezing. Bibasilar crackles. Cardiovascular: Positive S1, positive S2. Regular rate and rhythm. Abdomen: Positive bowel sounds in all 4 quadrants. Soft, nontender, nondistended. : Mena in place. Normal external genitalia. Rectal: Deferred. Skin: Warm, dry. Intact. Extremities: 2+ radial pulses bilaterally. No lower extremity edema. Neuro: Sedated. laboratory and microbiology Laboratory Tests 06/25/24 03:40 Test 06/25/24 03:40 Range/Units Serum Glucose 155 H 74-106 mg/dL Assessment/Plan Impression: Acute hypoxic respiratory failure On mechanical ventilator COPD exacerbation Nicotine dependence Elevated troponin Atrial fibrillation Hypertension Events: Remains on vent support On AC mode; RR 18, VT 550, PEEP 5, FiO2 30% Increased peak pressures Changed H + E filter. Patient failed CPAP trial. Sedated on Propofol, Fentanyl - required re-sedation after CPAP trial d/t increased peak pressures. Start Seroquel 50 mg via NGT q.12 hours Continue bronchodilators Continue IV steroids Continue IV antibiotics IV fluids at 100 mL/hr. Off Levophed, hemodynamically stable. SBT/ERIS Taper sedation as tolerated Labs and imaging reviewed. Rest of plan as noted below. Plan: s/p intubation on mechanical ventilator. CXR image and report reviewed. Devices in place. Pulmonary congestion. No pneumothorax. No pleural effusion. ABG reviewed, compensated. Labs reviewed, within normal limits. On AC mode; RR 18, VT 550, PEEP 5, FiO2 30% Titrate FIO2 to keep O2 saturation above 90%. VAP bundle. Daily ABG and CXR while intubated Sedate for ventilator synchrony Continue bronchodilators. IV steroids Continue antibiotics. Start pressors if necessary to maintain a mean arterial blood pressure greater than 65 mmHg. Monitor renal function Monitor electrolytes. Supplement as necessary. Monitor ins and outs. Taper sedation as tolerated CPAP with PS 8, PEEP of 5 OK to increase PS to max 20 cmH2O to achieve tidal volume 500-600 mL. GI prophylaxis. DVT prophylaxis. Prognosis: Poor given patient's multiple co-morbidities. Condition: Critical Rest of plan per hospitalist and other consultants. A total of 35 minutes of critical care time was spent reviewing the patient record, examining the patient, making a diagnostic and therapeutic plan, discussing this plan with the medical personnel, following up on diagnostic studies and following the patient for clinical stability excluding any and all procedures. At least 50% of this time was spent in direct, [id number] contact. Thank you, JENNIFER Espitia, for allowing me to participate in this patient's care. Further recommendations will depend on the patient's clinical course. Please do not hesitate to contact me if you have any questions or concerns. This medical document was created using an electronic medical record system with [employer] dictation system. Although these documentations are being carefully reviewed, there may still be some phonetic and typographical changes. The errors are purely typographical, due to imperfection on the software program, and do not reflect any compromise in the patient's medical care. Dietary Evaluation Review Comments: 1. If EN/GI accessible, Glucerna 45ml/hr, 65g pro 1296 kcal, satisfies pt's needs for Pro 80 %, Kcal 80%, in additon Propofol provides 110 kcal/100ml fat kcal Thus pt will have 1406 total kcal, supporting pt 's energy needs is increasedd to 86%. 2. If EN/GI not a option, NPO > 7 days, offer TPN per pharmacy 3. If pt off vent, passess speech eval, offer 2 g Na CCHO-60 low fat Low cholesterol diet. Expected Outcomes/Goals: gradually healed wounds, graudal weight loss, controlled blood glucose. Plan discussed with: Other (ADELINE Chapa/Brittani) Critical Care Time(min): 35 ILYA GARCES MD Jun 25, 2024 22:44
[2024-06-26] VITALS (110 sets, daily range): BP systolic 87–169; BP diastolic 52–102; PULSE 49–138; RESP 8–19; TEMP 96.8–99.9; O2SAT 82–100
[2024-06-26 03:45] LABS: Basophils # (auto) 0 10 ^3/uL (0-0.2); Basophils % (auto) 0.6 % (0.0-2.0); Eosinophils # (auto) 0 10 ^3/uL (0-0.8); Hematocrit 32.3 % (41.0-53.0); Hemoglobin 10.5 g/dL (13.5-17.5); Lymphocytes # (auto) 0.3 10 ^3/uL (0.4-5.4); Lymphocytes % (auto) 4.7 % (10.0-50.0); Mean Corpuscular Hemoglobin 28.8 pg (28.0-32.0); Mean Corpuscular Hgb Conc. 32.5 g/dL (32.0-36.0); Mean Corpuscular Volume 88.4 fL (80.0-100.0); Monocytes # (auto) 0.5 10 ^3/uL (0-1.3); Neutrophils # (auto) 6.6 10 ^3/uL (1.6-8.6); Neutrophils % (auto) 87.7 % (37.0-80.0); Nucleated Red Blood Cells % 0.5 %; Platelet Count (auto) 304 10^3/uL (140-450); Red Blood Cells 3.65 10^6/uL (4.5-5.90); White Blood Cell 7.5 10^3/uL (4.4-10.8)
[2024-06-26 04:09] LABS: Alanine Aminotransferase 23 U/L (7-40); Albumin 3.8 g/dL (3.2-4.8); Anion Gap 5 (5-15); Aspartate Aminotransferase 19 U/L (13-40); BUN/Creatinine Ratio 39.4 (10.0-20.0); Bilirubin, Total 0.3 mg/dL (0.2-1.0); Calcium 9.1 mg/dL (8.7-10.4); Carbon Dioxide 30 mmol/L (20-31); Chloride 107 mmol/L (98-107); Magnesium 2.3 mg/dL (1.6-2.6); Sodium 142 mmol/L (136-145)
[2024-06-26 04:42] LABS: Alkaline Phosphatase 38 U/L (46-116); Blood Urea Nitrogen 26 mg/dL (9-23); Glucose 145 mg/dL (74-106); Potassium 5.6 mmol/L (3.5-5.1); Total Protein 5.4 g/dL (5.7-8.2)
--- NOTE | 2024-06-26 05:24 | DVH ---
CHEST RADIOGRAPH Indication: Intubated. Thank You! Technique: Single frontal view of the chest was obtained COMPARISON: XY CHEST XRAY 1 VIEW on DOS: 06/25/24, XY CHEST XRAY 1 VIEW on DOS: 06/24/24, XY CHEST XRAY 1 VIEW on DOS: 06/23/24, XY CHEST PORTABLE on DOS: 06/23/24, XY CHEST PORTABLE on DOS: 06/22/24 FINDINGS: Lines and Tubes: Endotracheal tube, enteric catheter and left central venous catheter in satisfactory position. Lungs: Mild congestion Pleura: No effusion. No pneumothorax. Cardiomediastinal contours: Unremarkable Bones: Unremarkable IMPRESSION: Lines and tubes in satisfactory position. No significant interval change.
[2024-06-26] MEDS: SODIUM ZIRCONIUM CYCL 10 GM PAK PO ONE (06:08)
--- NOTE | 2024-06-26 09:33 | DVHPN2 ---
Subjective Patient chemically sedated Reviewed: Care Plan, H&P, Labs, Medications, Previous Orders, Radiology, Other (Consultations) Changes from previous H/P or p: No Changes Objective Vitals Vital Signs Date Time Temp Pulse Resp B/P (MAP) Pulse Ox O2 Delivery O2 Flow Rate FiO2 06/26/24 08:30 96.8 53 18 106/62 (77) 97 206.2 06/26/24 08:28 Mechanical Ventilator+ 30 30 Intake/Output Intake and Output 06/26/24 07:00 Intake Total 3811.498 ml Output Total 1050 ml Balance 2761.498 ml IV Total 3811.498 ml Output Urine Total 1050 ml General Appearance: Other (Intubated and sedated) HEENT: Atraumatic Lungs: Other (Mechanical ventilation sounds) Cardiovascular: Normal S1, Normal S2, Other (Bradycardia) Abdomen: Normal bowel sounds, Soft Genitourinary: Other (Bloom's catheter) Neuro: Other (Unable to assess) Psych/Mental Status: Other (Unable to assess) Medications Current Medications Medications Dose Ordered Sig/Milvia Route Start Time Stop Time Status Last Admin Dose Admin Ondansetron HCl 4 mg Q4HP PRN IV 06/20/24 07:15 Nitroglycerin 0.4 mg Q5MINP PRN SL 06/20/24 07:15 Morphine Sulfate 2 mg Q30M PRN IV 06/20/24 07:15 Albuterol 2.5 mg Q4HR NEB 06/20/24 10:00 06/26/24 07:04 2.5 MG Ipratropium [place] 0.5 mg Q4HPRN PRN NEB 06/20/24 07:30 Cancel Methylprednisolone Sodium Succinate 40 mg Q8HR IV 06/20/24 14:00 06/26/24 06:05 40 MG Pantoprazole Sodium 40 mg DAILY IV 06/20/24 10:00 Hold 06/23/24 08:04 40 MG Budesonide 0.5 mg BID NEB 06/20/24 10:00 06/26/24 07:04 0.5 MG Midazolam HCl 50 ml @ 1 mls/hr Q24H IV 06/20/24 07:45 06/22/24 21:43 5 MLS/HR Albuterol 2.5 mg Q4HPRN PRN NEB 06/20/24 08:00 Cancel Ipratropium [place] 0.5 mg Q4HR NEB 06/20/24 10:00 06/26/24 07:05 0.5 MG Ceftriaxone Sodium 50 ml @ 100 mls/hr DAILY@09 IV 06/20/24 09:00 06/25/24 10:36 100 MLS/HR Azithromycin 250 ml @ 125 mls/hr DAILY IV 06/20/24 10:00 06/25/24 10:35 125 MLS/HR Enoxaparin Sodium 30 mg DAILY SC 06/20/24 10:00 UNV Famotidine 20 mg DAILY PO 06/20/24 10:00 06/23/24 08:04 20 MG Fentanyl Citrate 250 ml @ 2.5 mls/hr Q24H IV 06/20/24 08:30 06/26/24 06:07 27.5 MLS/HR Enoxaparin Sodium 40 mg DAILY SC 06/20/24 10:00 06/25/24 10:40 40 MG Norepinephrine Bitartrate 250 ml @ 3.75 mls/hr Q24H IV 06/20/24 09:01 06/20/24 09:16 3.75 MLS/HR Dexmedetomidine HCl 400 mcg/ Dextrose 100 ml @ 4.09 mls/hr Q24H IV 06/22/24 10:00 06/23/24 00:30 4.09 MLS/HR Propofol 100 ml @ 2.454 mls/ hr Q24H IV 06/22/24 15:45 06/26/24 04:47 24.54 MLS/HR Sodium Chloride 1,000 ml @ 100 mls/hr Q10H IV 06/23/24 09:30 06/26/24 06:13 100 MLS/HR Quetiapine Fumarate 50 mg BID PO 06/24/24 22:00 06/25/24 19:55 50 MG Laboratory Results Laboratory Tests 06/26/24 03:15 Chemistry Test 06/26/24 03:15 Albumin 3.8 g/dL (3.2-4.8) Calcium Level 9.1 mg/dL (8.7-10.4) Magnesium Level 2.3 mg/dL (1.6-2.6) Total Protein 5.4 g/dL (5.7-8.2) L LFT Test 06/26/24 03:15 Alanine Aminotransferase (ALT) 23 U/L (7-40) Alkaline Phosphatase 38 U/L (46-116) L Aspartate Amino Transferase (AST) 19 U/L (13-40) Total Bilirubin 0.3 mg/dL (0.2-1.0) Urinalysis Test 06/20/24 11:23 06/23/24 10:15 Urine Hyaline Casts Few /lpf (0 - 2) Urine Color Light-yellow (Yellow) Urine Clarity Clear (Clear) Urine pH 6.0 (5.0-9.0) Urine Specific [place] 1.013 (1.001-1.035) Urine Protein Negative (Negative) Urine Ketones Negative (Negative) Urine Blood 2+ /uL (Negative) H Urine Nitrite Negative (Negative) Urine Bilirubin Negative (Negative) Urine Urobilinogen Normal mg/dL (Negative) Urine Leukocyte Esterase Negative /uL (Negative) Urine RBC 115 /hpf (0 - 3) Urine Microscopic WBC 2 /HPF (0-3) Urine Squamous Epithelial Cells None seen /hpf (<5) Urine Bacteria None seen /hpf (None Seen) Urine Mucus Few (None Seen) Urine Creatinine 69.90 mg/dL (30.0-125.0) Urine Protein/Creatinine Ratio 0.21 Urine Sodium 58 mmol/L (40-220) Urine Glucose Normal mg/dL (Normal) Urine Total Protein 14.8 mg/dL (1-14) H Blood Gas Results Test 06/26/24 08:11 Arterial Blood pH 7.462 (7.350-7.450) FiO2 % 30.0 Microbiology Microbiology Date/Time Source Procedure Growth Status 06/23/24 01:35 Urine - [place] Urine Culture - Final Complete 06/22/24 08:30 Nose MRSA Screen - Final Complete 06/20/24 08:23 Sputum Gram Stain - Final Complete 06/20/24 08:23 Sputum Respiratory Culture - Final Complete 06/20/24 05:19 Blood Blood Culture - Final NO GROWTH AFTER 5 DAYS OF INCUBATION. Complete Labs and/or images reviewed: Labs reviewed by me, Image(s) reviewed by me Assessment/Plan Assessment/Plan Impression: -acute on chronic hypoxic respiratory failure, now on mechanical ventilation -NSTEMI type 2 -rule out community-acquired pneumonia, Gram-positive/Gram-negative etiology -COPD with exacerbation -asthma -nicotine dependence -primary hypertension -atrial fibrillation Plan: Events: Patient hypokalemic. FiO2 continues to be at 30%. Noted periods of bradycardia with pauses, questionable vasovagal response. -atropine 0.4 mg IV for sinus pause and bradycardia -IV diuresis, [place]el[place] -continue current ventilator settings -CPAP trial in a.m. -weaned current sedation -continue antibiotic therapy -PUD, DVT prophylaxis -repeat labs in a.m. Critical care time spent with patient discussing and formulating plan of care: 40 minutes. This does not include time spent performing procedures. This medical document was created using an electronic medical record system with C[employer]ia dictation system. Although this document has been carefully reviewed, there may still be some phonetic and typographical errors. These areas are purely typographical due to imperfections of the software programs, and do not reflect any compromise in the patient's medical care. Plan discussed with: Patient, Other (RN) Date of Service: Jun 26, 2024 Billing Provider: ESSENCE FONG NP Common Visit Codes: 08510-[id number] CARE 30-74 MIN ESSENCE FONG NP Jun 26, 2024 09:32
[2024-06-26] MEDS: PANTOPRAZOLE 40 MG/10 ML VIAL INJ IV SCH (10:07)
[2024-06-26] MEDS: FUROSEMIDE 20 MG/2 ML VIAL IV ONE (10:27)
--- NOTE | 2024-06-26 13:06 | DVHPN2 ---
Consult Progress Note Date Seen: Jun 26, 2024 Subjective Other Systems: No further pauses or high-degree AV blocks. Currently sinus bradycardia Objective vital signs Vital Sign Date Time Temp Pulse Resp B/P (MAP) Pulse Ox O2 Delivery O2 Flow Rate FiO2 06/26/24 12:28 30 06/26/24 12:28 18 97 Mechanical Ventilator+ 06/26/24 10:36 55 100/73 (82) 06/26/24 08:30 96.8 206.2 Total Intake and Output 06/25/24 06/25/24 06/26/24 15:00 23:00 07:00 Intake Total 1490.760 ml 1139.050 ml 1181.688 ml Output Total 500 ml 550 ml Balance 1490.760 ml 639.050 ml 631.688 ml medications Current Medications Medications Dose Ordered Sig/Milvia Route Start Time Stop Time Status Last Admin Dose Admin Ondansetron HCl 4 mg Q4HP PRN IV 06/20/24 07:15 Nitroglycerin 0.4 mg Q5MINP PRN SL 06/20/24 07:15 Morphine Sulfate 2 mg Q30M PRN IV 06/20/24 07:15 Albuterol 2.5 mg Q4HR NEB 06/20/24 10:00 06/26/24 10:36 2.5 MG Ipratropium [place] 0.5 mg Q4HPRN PRN NEB 06/20/24 07:30 Cancel Methylprednisolone Sodium Succinate 40 mg Q8HR IV 06/20/24 14:00 06/26/24 06:05 40 MG Budesonide 0.5 mg BID NEB 06/20/24 10:00 06/26/24 07:04 0.5 MG Midazolam HCl 50 ml @ 1 mls/hr Q24H IV 06/20/24 07:45 06/22/24 21:43 5 MLS/HR Albuterol 2.5 mg Q4HPRN PRN NEB 06/20/24 08:00 Cancel Ipratropium [place] 0.5 mg Q4HR NEB 06/20/24 10:00 06/26/24 10:36 0.5 MG Ceftriaxone Sodium 50 ml @ 100 mls/hr DAILY@09 IV 06/20/24 09:00 06/26/24 10:07 100 MLS/HR Azithromycin 250 ml @ 125 mls/hr DAILY IV 06/20/24 10:00 06/26/24 12:43 125 MLS/HR Enoxaparin Sodium 30 mg DAILY SC 06/20/24 10:00 UNV Fentanyl Citrate 250 ml @ 2.5 mls/hr Q24H IV 06/20/24 08:30 06/26/24 06:07 27.5 MLS/HR Enoxaparin Sodium 40 mg DAILY SC 06/20/24 10:00 06/26/24 10:07 40 MG Norepinephrine Bitartrate 250 ml @ 3.75 mls/hr Q24H IV 06/20/24 09:01 06/20/24 09:16 3.75 MLS/HR Dexmedetomidine HCl 400 mcg/ Dextrose 100 ml @ 4.09 mls/hr Q24H IV 06/22/24 10:00 06/23/24 00:30 4.09 MLS/HR Propofol 100 ml @ 2.454 mls/ hr Q24H IV 06/22/24 15:45 06/26/24 10:08 19.632 MLS/HR Sodium Chloride 1,000 ml @ 100 mls/hr Q10H IV 06/23/24 09:30 06/26/24 06:13 100 MLS/HR Quetiapine Fumarate 50 mg BID PO 06/24/24 22:00 06/26/24 10:07 50 MG Pantoprazole Sodium 40 mg DAILY IV 06/26/24 10:00 06/26/24 10:07 40 MG Examination: GENERAL:Abnormal, LUNGS:Abnormal (Mechanically ventilated 30% FiO2), CVS:Normal (Sinus bradycardia, off pressors), NEURO:Abnormal (Chemically sedated) laboratory and microbiology Laboratory Tests 06/26/24 03:15 Test 06/26/24 03:15 Range/Units Serum Glucose 145 H 74-106 mg/dL Problem List/Assessment/Plan Problem List/Assessment/Plan Transient second degree type II atrioventricular block Severe COPD exacerbation Acute on chronic hypoxic respiratory failure NSTEMI, likely type 2 secondary to above Hx hypertension Dyslipidemia Prediabetes Acute kidney injury Nicotine dependence Plan/Recommendation (Dr. Ballard) Case discussed with . Patient noted to have episodes of pauses (less than 3 seconds) with no further overnight events reported. We will recommend to avoid all AV ivania blocking agents. The patient needs to be on continuous ECG monitoring. Patient currently mechanically ventilated and chemically sedated. Failed CPAP trial. Recommend weaning patient off sedation as tolerated. Patient now in sinus bradycardia rhythm on panel monitor, with no further cardiac events seen this time. Further recommendations per clinical course and progression. Thank you for allowing us to care for this patient. Please call with any questions or concerns. Critical care time: 30 min. This medical document was created using an electronic medical record system with voice recognition software and computerized dictation system. Although this document has been carefully reviewed, there might still be some phonetic and typographical errors. Occasional wrong-word or ``sound-alike substitutions may have occurred due to the inherent limitations of voice recognition software. These areas are purely typographical due to imperfections of the software programs and do not reflect any compromise in the patient's medical care. Please read the chart carefully and recognize, using context, where these substitutions have occurred. Plan discussed with: Other Dietary Evaluation Review Comments: 1. If EN/GI accessible, Glucerna 45ml/hr, 65g pro 1296 kcal, satisfies pt's needs for Pro 80 %, Kcal 80%, in additon Propofol provides 110 kcal/100ml fat kcal Thus pt will have 1406 total kcal, supporting pt 's energy needs is increasedd to 86%. 2. If EN/GI not a option, NPO > 7 days, offer TPN per pharmacy 3. If pt off vent, passess speech eval, offer 2 g Na CCHO-60 low fat Low cholesterol diet. Expected Outcomes/Goals: gradually healed wounds, graudal weight loss, controlled blood glucose. Date of Service: Jun 26, 2024 Billing Provider: MOOK OROZCO Cardiology Common Codes: [id number] CARE 30-74 MIN MOOK OROZCO Jun 26, 2024 13:06
--- NOTE | 2024-06-26 15:13 | ECG ---
[facility] Test Date: 2024-06-24 Test Time: 20:52:49 Pat Name: YONATHAN VARNER Department: Room: [address] [place] [address] A Gender: M Event Decorator: Ronnell : 1965 Requested By: ORACIO MARTINEZ Order Number: [id number] Reading MD: Loy Ballard Measurements Intervals [place] Rate: 57 P: 77 AK: 134 QRS: 20 QRSD: 82 T: 88 QT: 430 QTc: 418 Interpretive Statements Sinus bradycardia Nonspecific T wave abnormality Electronically Signed On 06-28-2024 10:02:56 PST by Loy Ballard Please click the below link to view image of tracing.
[2024-06-26] MEDS: Jevity 1.2 Cal/Fiber 1 Liter GT SCH (15:30)
[2024-06-26] MEDS: QUEtiapine FUMARATE 100 MG TAB PO SCH (22:35)
--- NOTE | 2024-06-26 23:40 | DVHPN2 ---
Progress Note - Dictate Date Seen: Jun 26, 2024 Medical Necessity Reason Pt with a Central, PICC or Fol: Yes The following are medically ne: Mena Catheter Reason for mena catheter: Strict I&O Subjective Patient seen and examined at bedside. Sedated, intubated on mechanical ventilator. Overnight events reviewed. vital signs Vital Sign Date Time Temp Pulse Resp B/P (MAP) Pulse Ox O2 Delivery O2 Flow Rate FiO2 06/26/24 23:16 146/95 06/26/24 22:25 55 18 98 30 06/26/24 18:48 Mechanical Ventilator+ 06/26/24 18:45 98.6 209.5 Total Intake and Output 06/25/24 06/25/24 06/26/24 15:00 23:00 07:00 Intake Total 1490.760 ml 1139.050 ml 1181.688 ml Output Total 500 ml 550 ml Balance 1490.760 ml 639.050 ml 631.688 ml medications Current Medications Medications Dose Ordered Sig/Milvia Route Start Time Stop Time Status Last Admin Dose Admin Ondansetron HCl 4 mg Q4HP PRN IV 06/20/24 07:15 Nitroglycerin 0.4 mg Q5MINP PRN SL 06/20/24 07:15 Morphine Sulfate 2 mg Q30M PRN IV 06/20/24 07:15 Albuterol 2.5 mg Q4HR NEB 06/20/24 10:00 06/26/24 22:25 2.5 MG Ipratropium [place] 0.5 mg Q4HPRN PRN NEB 06/20/24 07:30 Cancel Methylprednisolone Sodium Succinate 40 mg Q8HR IV 06/20/24 14:00 06/26/24 22:35 40 MG Budesonide 0.5 mg BID NEB 06/20/24 10:00 06/26/24 18:47 0.5 MG Midazolam HCl 50 ml @ 1 mls/hr Q24H IV 06/20/24 07:45 06/22/24 21:43 5 MLS/HR Albuterol 2.5 mg Q4HPRN PRN NEB 06/20/24 08:00 Cancel Ipratropium [place] 0.5 mg Q4HR NEB 06/20/24 10:00 06/26/24 22:25 0.5 MG Ceftriaxone Sodium 50 ml @ 100 mls/hr DAILY@09 IV 06/20/24 09:00 06/26/24 10:07 100 MLS/HR Azithromycin 250 ml @ 125 mls/hr DAILY IV 06/20/24 10:00 06/26/24 12:43 125 MLS/HR Enoxaparin Sodium 30 mg DAILY SC 06/20/24 10:00 UNV Fentanyl Citrate 250 ml @ 2.5 mls/hr Q24H IV 06/20/24 08:30 06/26/24 15:53 25 MLS/HR Enoxaparin Sodium 40 mg DAILY SC 06/20/24 10:00 06/26/24 10:07 40 MG Norepinephrine Bitartrate 250 ml @ 3.75 mls/hr Q24H IV 06/20/24 09:01 06/20/24 09:16 3.75 MLS/HR Dexmedetomidine HCl 400 mcg/ Dextrose 100 ml @ 4.09 mls/hr Q24H IV 06/22/24 10:00 06/23/24 00:30 4.09 MLS/HR Propofol 100 ml @ 2.454 mls/ hr Q24H IV 06/22/24 15:45 06/26/24 23:16 22.086 MLS/HR Sodium Chloride 1,000 ml @ 100 mls/hr Q10H IV 06/23/24 09:30 06/26/24 18:01 100 MLS/HR Pantoprazole Sodium 40 mg DAILY IV 06/26/24 10:00 06/26/24 10:07 40 MG Enteral Nutritional Formula 1,000 ml 40ML/HR GT 06/26/24 14:00 06/26/24 15:30 1,000 ML Quetiapine Fumarate 100 mg BID PO 06/26/24 22:00 06/26/24 22:35 100 MG objective Gen.: Patient lying in bed in medical ICU. Sedated, intubated on mechanical ventilator. Head: Normocephalic, atraumatic. Eyes: PERRLA. Ears: Normal external anatomy. Throat: Endotracheal tube and orogastric tube in place. Neck: Supple, trachea midline. Chest: Transmitted breath sounds bilaterally. Decreased air entry bilaterally. No wheezing. Bibasilar crackles. Cardiovascular: Positive S1, positive S2. Regular rate and rhythm. Abdomen: Positive bowel sounds in all 4 quadrants. Soft, nontender, nondistended. : Mena in place. Normal external genitalia. Rectal: Deferred. Skin: Warm, dry. Intact. Extremities: 2+ radial pulses bilaterally. No lower extremity edema. Neuro: Sedated. laboratory and microbiology Laboratory Tests 06/26/24 03:15 Test 06/26/24 03:15 Range/Units Serum Glucose 145 H 74-106 mg/dL Assessment/Plan Impression: Acute hypoxic respiratory failure On mechanical ventilator COPD exacerbation Nicotine dependence Elevated troponin Atrial fibrillation Hypertension Events: Remains on vent support On AC mode; RR 18, VT 550, PEEP 5, FiO2 30% Patient failed CPAP trial. Sedated on Propofol, Fentanyl Increased Seroquel dose to 100 mg via NGT q.12 hours Continue bronchodilators Continue IV steroids Continue IV antibiotics IV fluids at 100 mL/hr. Off Levophed, hemodynamically stable. Tube feeds for nutritional support SBT/ERIS Taper sedation as tolerated Labs and imaging reviewed. Rest of plan as noted below. Plan: s/p intubation on mechanical ventilator. CXR image and report reviewed. Devices in place. Pulmonary congestion. No pneumothorax. No pleural effusion. ABG reviewed, compensated. Labs reviewed, within normal limits. On AC mode; RR 18, VT 550, PEEP 5, FiO2 30% Titrate FIO2 to keep O2 saturation above 90%. VAP bundle. Daily ABG and CXR while intubated Sedate for ventilator synchrony Continue bronchodilators. IV steroids Continue antibiotics. Start pressors if necessary to maintain a mean arterial blood pressure greater than 65 mmHg. Monitor renal function Monitor electrolytes. Supplement as necessary. Monitor ins and outs. Taper sedation as tolerated CPAP with PS 8, PEEP of 5 OK to increase PS to max 20 cmH2O to achieve tidal volume 500-600 mL. GI prophylaxis. DVT prophylaxis. Prognosis: Poor given patient's multiple co-morbidities. Condition: Critical Rest of plan per hospitalist and other consultants. A total of 35 minutes of critical care time was spent reviewing the patient record, examining the patient, making a diagnostic and therapeutic plan, discussing this plan with the medical personnel, following up on diagnostic studies and following the patient for clinical stability excluding any and all procedures. At least 50% of this time was spent in direct, [id number] contact. Thank you, JENNIFER Espitia, for allowing me to participate in this patient's care. Further recommendations will depend on the patient's clinical course. Please do not hesitate to contact me if you have any questions or concerns. This medical document was created using an electronic medical record system with [employer] dictation system. Although these documentations are being carefully reviewed, there may still be some phonetic and typographical changes. The errors are purely typographical, due to imperfection on the software program, and do not reflect any compromise in the patient's medical care. Dietary Evaluation Review Comments: 1. If EN/GI accessible, Glucerna 45ml/hr, 65g pro 1296 kcal, satisfies pt's needs for Pro 80 %, Kcal 80%, in additon Propofol provides 110 kcal/100ml fat kcal Thus pt will have 1406 total kcal, supporting pt 's energy needs is increasedd to 86%. 2. If EN/GI not a option, NPO > 7 days, offer TPN per pharmacy 3. If pt off vent, passess speech eval, offer 2 g Na CCHO-60 low fat Low cholesterol diet. Expected Outcomes/Goals: gradually healed wounds, graudal weight loss, controlled blood glucose. Plan discussed with: Other (ADELINE Batista) Critical Care Time(min): 35 ILYA GARCES MD Jun 26, 2024 23:40
[2024-06-27] VITALS (112 sets, daily range): BP systolic 96–183; BP diastolic 57–130; PULSE 43–140; RESP 9–35; TEMP 97–100.4; O2SAT 88–100
[2024-06-27] MEDS: ATROPINE SULFATE 0.4 MG/1 ML VIAL IV ONE (08:05)
--- NOTE | 2024-06-27 08:38 | DVH ---
CHEST RADIOGRAPH Indication: respiratory failure Technique: Single frontal view of the chest was obtained Comparison: XY CHEST XRAY 1 VIEW on DOS: 06/26/24, XY CHEST XRAY 1 VIEW on DOS: 06/25/24, XY CHEST XRAY 1 VIEW on DOS: 06/24/24, XY CHEST XRAY 1 VIEW on DOS: 06/23/24, XY CHEST PORTABLE on DOS: 06/23/24, XY CHEST XRAY 1 VIEW on DOS: 06/26/24 FINDINGS: Lines and Tubes: Endotracheal tube, enteric catheter and left central venous catheter in satisfactory position. Lungs: Mild congestion Pleura: No effusion. No pneumothorax. Cardiomediastinal contours: Unremarkable Bones: Unremarkable IMPRESSION: 1. Lines and tubes in satisfactory position. No significant interval change.
--- NOTE | 2024-06-27 09:08 | DVHPN2 ---
Subjective Patient chemically sedated Reviewed: Care Plan, H&P, Labs, Medications, Previous Orders, Radiology, Other (Consultations) Changes from previous H/P or p: No Changes General: Per HPI Objective Vitals Vital Signs Date Time Temp Pulse Resp B/P (MAP) Pulse Ox O2 Delivery O2 Flow Rate FiO2 06/27/24 08:30 98.6 56 18 125/65 (85) 97 209.5 06/27/24 08:07 30 06/27/24 08:00 Mechanical Ventilator+ Intake/Output Intake and Output 06/27/24 07:00 Intake Total 4171.426 ml Output Total 2775 ml Balance 1396.426 ml Intake Oral 63 ml IV Total 3827.426 ml Tube Feeding 281 ml Output Urine Total 2775 ml General Appearance: Other (Intubated and sedated) HEENT: Atraumatic Lungs: Other (Mechanical ventilation sounds) Cardiovascular: Normal S1, Normal S2, Other (Bradycardia) Abdomen: Normal bowel sounds, Soft Genitourinary: Other (Bloom's catheter) Extremities: No edema, Normal pulses Neuro: Other (Unable to assess) Skin: Dry, Intact Psych/Mental Status: Other (Unable to assess) Medications Current Medications Medications Dose Ordered Sig/Milvia Route Start Time Stop Time Status Last Admin Dose Admin Ondansetron HCl 4 mg Q4HP PRN IV 06/20/24 07:15 Nitroglycerin 0.4 mg Q5MINP PRN SL 06/20/24 07:15 Morphine Sulfate 2 mg Q30M PRN IV 06/20/24 07:15 Albuterol 2.5 mg Q4HR NEB 06/20/24 10:00 06/27/24 06:26 2.5 MG Ipratropium [place] 0.5 mg Q4HPRN PRN NEB 06/20/24 07:30 Cancel Methylprednisolone Sodium Succinate 40 mg Q8HR IV 06/20/24 14:00 06/27/24 05:49 40 MG Budesonide 0.5 mg BID NEB 06/20/24 10:00 06/26/24 18:47 0.5 MG Midazolam HCl 50 ml @ 1 mls/hr Q24H IV 06/20/24 07:45 06/22/24 21:43 5 MLS/HR Albuterol 2.5 mg Q4HPRN PRN NEB 06/20/24 08:00 Cancel Ipratropium [place] 0.5 mg Q4HR NEB 06/20/24 10:00 06/27/24 06:26 0.5 MG Ceftriaxone Sodium 50 ml @ 100 mls/hr DAILY@09 IV 06/20/24 09:00 06/26/24 10:07 100 MLS/HR Azithromycin 250 ml @ 125 mls/hr DAILY IV 06/20/24 10:00 06/26/24 12:43 125 MLS/HR Enoxaparin Sodium 30 mg DAILY SC 06/20/24 10:00 UNV Fentanyl Citrate 250 ml @ 2.5 mls/hr Q24H IV 06/20/24 08:30 06/27/24 01:34 27.5 MLS/HR Enoxaparin Sodium 40 mg DAILY SC 06/20/24 10:00 06/26/24 10:07 40 MG Norepinephrine Bitartrate 250 ml @ 3.75 mls/hr Q24H IV 06/20/24 09:01 06/20/24 09:16 3.75 MLS/HR Dexmedetomidine HCl 400 mcg/ Dextrose 100 ml @ 4.09 mls/hr Q24H IV 06/22/24 10:00 06/23/24 00:30 4.09 MLS/HR Propofol 100 ml @ 2.454 mls/ hr Q24H IV 06/22/24 15:45 06/27/24 03:32 19.632 MLS/HR Sodium Chloride 1,000 ml @ 100 mls/hr Q10H IV 06/23/24 09:30 06/27/24 03:52 100 MLS/HR Pantoprazole Sodium 40 mg DAILY IV 06/26/24 10:00 06/26/24 10:07 40 MG Enteral Nutritional Formula 1,000 ml 40ML/HR GT 06/26/24 14:00 06/26/24 15:30 1,000 ML Quetiapine Fumarate 100 mg BID PO 06/26/24 22:00 06/26/24 22:35 100 MG Laboratory Results Laboratory Tests 06/26/24 03:15 Urinalysis Test 06/20/24 11:23 06/23/24 10:15 Urine Hyaline Casts Few /lpf (0 - 2) Urine Color Light-yellow (Yellow) Urine Clarity Clear (Clear) Urine pH 6.0 (5.0-9.0) Urine Specific [place] 1.013 (1.001-1.035) Urine Protein Negative (Negative) Urine Ketones Negative (Negative) Urine Blood 2+ /uL (Negative) H Urine Nitrite Negative (Negative) Urine Bilirubin Negative (Negative) Urine Urobilinogen Normal mg/dL (Negative) Urine Leukocyte Esterase Negative /uL (Negative) Urine RBC 115 /hpf (0 - 3) Urine Microscopic WBC 2 /HPF (0-3) Urine Squamous Epithelial Cells None seen /hpf (<5) Urine Bacteria None seen /hpf (None Seen) Urine Mucus Few (None Seen) Urine Creatinine 69.90 mg/dL (30.0-125.0) Urine Protein/Creatinine Ratio 0.21 Urine Sodium 58 mmol/L (40-220) Urine Glucose Normal mg/dL (Normal) Urine Total Protein 14.8 mg/dL (1-14) H Microbiology Microbiology Date/Time Source Procedure Growth Status 06/23/24 01:35 Urine - [place] Urine Culture - Final Complete 06/22/24 08:30 Nose MRSA Screen - Final Complete 06/20/24 08:23 Sputum Gram Stain - Final Complete 06/20/24 08:23 Sputum Respiratory Culture - Final Complete 06/20/24 05:19 Blood Blood Culture - Final NO GROWTH AFTER 5 DAYS OF INCUBATION. Complete Labs and/or images reviewed: Labs reviewed by me, Image(s) reviewed by me Assessment/Plan Assessment/Plan Impression: -acute on chronic hypoxic respiratory failure, now on mechanical ventilation -NSTEMI type 2 -rule out community-acquired pneumonia, Gram-positive/Gram-negative etiology -COPD with exacerbation -asthma -nicotine dependence -primary hypertension -atrial fibrillation Plan: Events: Spontaneous breathing trial today. -atropine 0.4 mg IV for sinus pause and bradycardia -IV diuresis, [place]el[place] -continue current ventilator settings -CPAP trial in a.m. -weaned current sedation -continue antibiotic therapy -PUD, DVT prophylaxis -repeat labs in a.m. Critical care time spent with patient discussing and formulating plan of care: 40 minutes. This does not include time spent performing procedures. This medical document was created using an electronic medical record system with [email or web address] dictation system. Although this document has been carefully reviewed, there may still be some phonetic and typographical errors. These areas are purely typographical due to imperfections of the software programs, and do not reflect any compromise in the patient's medical care. Plan discussed with: Patient, Other (RN) My Orders Orders - ESSENCE FONG NP Procedure Category Date Status Time Cpap Trial For Am ORDERS 06/26/24 Transmitted 09:27 Cpap/Sed Vacation Med ORDERS 06/26/24 Transmitted Weaning 09:27 Pantoprazole PHA 06/26/24 In Process (Protonix) 10:00 Nutritional PHA 06/26/24 In Process Supplements (Jevity 14:00 Basic Metabolic Panel LAB 06/27/24 Logged 07:49 Complete Blood Count LAB 06/27/24 Logged 07:49 Chest Xray 1 View XY 06/27/24 Resulted 07:49 Basic Metabolic Panel LAB 06/28/24 Verified 04:00 Complete Blood Count LAB 06/28/24 Verified 04:00 Date of Service: Jun 27, 2024 Billing Provider: ESSENCE FONG NP Common Visit Codes: [id number] CARE 30-74 MIN ESSENCE FONG NP Jun 27, 2024 09:08
--- NOTE | 2024-06-27 09:13 | DVHPN2 ---
Consult Progress Note Date Seen: Jun 27, 2024 Subjective Other Systems: Notified of intermittent sinus pauses overnight Objective vital signs Vital Sign Date Time Temp Pulse Resp B/P (MAP) Pulse Ox O2 Delivery O2 Flow Rate FiO2 06/27/24 08:30 98.6 56 18 125/65 (85) 97 209.5 06/27/24 08:07 30 06/27/24 08:00 Mechanical Ventilator+ Total Intake and Output 06/26/24 06/26/24 06/27/24 15:00 23:00 07:00 Intake Total 1501.228 ml 1239.688 ml 1430.510 ml Output Total 1925 ml 850 ml Balance 1501.228 ml -685.312 ml 580.510 ml medications Current Medications Medications Dose Ordered Sig/Milvia Route Start Time Stop Time Status Last Admin Dose Admin Ondansetron HCl 4 mg Q4HP PRN IV 06/20/24 07:15 Nitroglycerin 0.4 mg Q5MINP PRN SL 06/20/24 07:15 Morphine Sulfate 2 mg Q30M PRN IV 06/20/24 07:15 Albuterol 2.5 mg Q4HR NEB 06/20/24 10:00 06/27/24 06:26 2.5 MG Ipratropium [place] 0.5 mg Q4HPRN PRN NEB 06/20/24 07:30 Cancel Methylprednisolone Sodium Succinate 40 mg Q8HR IV 06/20/24 14:00 06/27/24 05:49 40 MG Budesonide 0.5 mg BID NEB 06/20/24 10:00 06/26/24 18:47 0.5 MG Midazolam HCl 50 ml @ 1 mls/hr Q24H IV 06/20/24 07:45 06/22/24 21:43 5 MLS/HR Albuterol 2.5 mg Q4HPRN PRN NEB 06/20/24 08:00 Cancel Ipratropium [place] 0.5 mg Q4HR NEB 06/20/24 10:00 06/27/24 06:26 0.5 MG Ceftriaxone Sodium 50 ml @ 100 mls/hr DAILY@09 IV 06/20/24 09:00 06/26/24 10:07 100 MLS/HR Azithromycin 250 ml @ 125 mls/hr DAILY IV 06/20/24 10:00 06/26/24 12:43 125 MLS/HR Enoxaparin Sodium 30 mg DAILY SC 06/20/24 10:00 UNV Fentanyl Citrate 250 ml @ 2.5 mls/hr Q24H IV 06/20/24 08:30 06/27/24 01:34 27.5 MLS/HR Enoxaparin Sodium 40 mg DAILY SC 06/20/24 10:00 06/26/24 10:07 40 MG Norepinephrine Bitartrate 250 ml @ 3.75 mls/hr Q24H IV 06/20/24 09:01 06/20/24 09:16 3.75 MLS/HR Dexmedetomidine HCl 400 mcg/ Dextrose 100 ml @ 4.09 mls/hr Q24H IV 06/22/24 10:00 06/23/24 00:30 4.09 MLS/HR Propofol 100 ml @ 2.454 mls/ hr Q24H IV 06/22/24 15:45 06/27/24 03:32 19.632 MLS/HR Sodium Chloride 1,000 ml @ 100 mls/hr Q10H IV 06/23/24 09:30 06/27/24 03:52 100 MLS/HR Pantoprazole Sodium 40 mg DAILY IV 06/26/24 10:00 06/26/24 10:07 40 MG Enteral Nutritional Formula 1,000 ml 40ML/HR GT 06/26/24 14:00 06/26/24 15:30 1,000 ML Quetiapine Fumarate 100 mg BID PO 06/26/24 22:00 06/26/24 22:35 100 MG Examination: LUNGS:Abnormal (Mechanically ventilated 30% FiO2), CVS:Abnormal (Intermittent sinus pauses lasting 1 sec at a time. Couple events of transient high-degree AVB) laboratory and microbiology Laboratory Tests 06/26/24 03:15 Test 06/26/24 03:15 Range/Units Serum Glucose 145 H 74-106 mg/dL Problem List/Assessment/Plan Problem List/Assessment/Plan Transient sinus pauses and high-degree atrioventricular blocks Severe COPD exacerbation Acute on chronic hypoxic respiratory failure NSTEMI, likely type 2 secondary to above Hx hypertension Dyslipidemia Prediabetes Acute kidney injury Nicotine dependence Plan/Recommendation (Dr. Fox) Overnight patient noted to have intermittent sinus pauses of one second at a time and intermittent non-sustained high-degree atrioventricular blocks. Avoid all AV ivania blocking agents. Treat hyperkalemic events. Continue close ECG monitoring. Currently mechanically ventilated and chemically sedated. Failed CPAP trial. Recommend weaning patient off sedation as tolerated. Further recommendations per clinical course and progression. No indications for a temporary or permanent pacemakers at this time. Blood work pending for today. Thank you for allowing us to care for this patient. Please call with any questions or concerns. Critical care time: 30 min. This medical document was created using an electronic medical record system with voice recognition software and computerized dictation system. Although this document has been carefully reviewed, there might still be some phonetic and typographical errors. Occasional wrong-word or ``sound-alike substitutions may have occurred due to the inherent limitations of voice recognition software. These areas are purely typographical due to imperfections of the software programs and do not reflect any compromise in the patient's medical care. Please read the chart carefully and recognize, using context, where these substitutions have occurred. Plan discussed with: Other Dietary Evaluation Review Comments: 1. If EN/GI accessible, Glucerna 45ml/hr, 65g pro 1296 kcal, satisfies pt's needs for Pro 80 %, Kcal 80%, in additon Propofol provides 110 kcal/100ml fat kcal Thus pt will have 1406 total kcal, supporting pt 's energy needs is increasedd to 86%. 2. If EN/GI not a option, NPO > 7 days, offer TPN per pharmacy 3. If pt off vent, passess speech eval, offer 2 g Na CCHO-60 low fat Low cholesterol diet. Expected Outcomes/Goals: gradually healed wounds, graudal weight loss, controlled blood glucose. Date of Service: Jun 27, 2024 Billing Provider: MOOK OROZCO Cardiology Common Codes: [id number] CARE 30-74 MIN MOOK OROZCO Jun 27, 2024 09:13
[2024-06-27 10:14] LABS: Basophils # (auto) 0 10 ^3/uL (0-0.2); Basophils % (auto) 0.3 % (0.0-2.0); Eosinophils # (auto) 0 10 ^3/uL (0-0.8); Hematocrit 31.4 % (41.0-53.0); Hemoglobin 10.1 g/dL (13.5-17.5); Lymphocytes # (auto) 0.2 10 ^3/uL (0.4-5.4); Lymphocytes % (auto) 2.8 % (10.0-50.0); Mean Corpuscular Hemoglobin 28.5 pg (28.0-32.0); Mean Corpuscular Hgb Conc. 32.2 g/dL (32.0-36.0); Mean Corpuscular Volume 88.6 fL (80.0-100.0); Monocytes # (auto) 0.7 10 ^3/uL (0-1.3); Neutrophils # (auto) 7.4 10 ^3/uL (1.6-8.6); Neutrophils % (auto) 88.9 % (37.0-80.0); Nucleated Red Blood Cells % 0.2 %; Platelet Count (auto) 295 10^3/uL (140-450); Red Blood Cells 3.55 10^6/uL (4.5-5.90); White Blood Cell 8.3 10^3/uL (4.4-10.8)
[2024-06-27 10:26] LABS: Chloride 106 mmol/L (98-107); Potassium 4.6 mmol/L (3.5-5.1); Sodium 139 mmol/L (136-145)
[2024-06-27 10:27] LABS: Anion Gap 3 (5-15); Calcium 9.1 mg/dL (8.7-10.4); Carbon Dioxide 30 mmol/L (20-31)
[2024-06-27 10:32] LABS: BUN/Creatinine Ratio 32.2 (10.0-20.0); Blood Urea Nitrogen 19 mg/dL (9-23)
[2024-06-27 10:51] LABS: Glucose 146 mg/dL (74-106)
--- NOTE | 2024-06-27 23:16 | DVHPN2 ---
Progress Note - Dictate Date Seen: Jun 27, 2024 Medical Necessity Reason Pt with a Central, PICC or Fol: Yes The following are medically ne: Mena Catheter Reason for mena catheter: Strict I&O Subjective Patient seen and examined at bedside. Sedated, intubated on mechanical ventilator. Overnight events reviewed. vital signs Vital Sign Date Time Temp Pulse Resp B/P (MAP) Pulse Ox O2 Delivery O2 Flow Rate FiO2 06/27/24 22:54 50 18 118/61 (80) 100 35 06/27/24 22:15 98.8 209.8 06/27/24 22:00 Mechanical Ventilator+ Total Intake and Output 06/26/24 06/26/24 06/27/24 15:00 23:00 07:00 Intake Total 1501.228 ml 1239.688 ml 1430.510 ml Output Total 1925 ml 850 ml Balance 1501.228 ml -685.312 ml 580.510 ml medications Current Medications Medications Dose Ordered Sig/Milvia Route Start Time Stop Time Status Last Admin Dose Admin Ondansetron HCl 4 mg Q4HP PRN IV 06/20/24 07:15 Nitroglycerin 0.4 mg Q5MINP PRN SL 06/20/24 07:15 Morphine Sulfate 2 mg Q30M PRN IV 06/20/24 07:15 Albuterol 2.5 mg Q4HR NEB 06/20/24 10:00 06/27/24 22:54 2.5 MG Ipratropium [place] 0.5 mg Q4HPRN PRN NEB 06/20/24 07:30 Cancel Methylprednisolone Sodium Succinate 40 mg Q8HR IV 06/20/24 14:00 06/27/24 22:03 40 MG Budesonide 0.5 mg BID NEB 06/20/24 10:00 06/27/24 22:54 0.5 MG Midazolam HCl 50 ml @ 1 mls/hr Q24H IV 06/20/24 07:45 06/22/24 21:43 5 MLS/HR Albuterol 2.5 mg Q4HPRN PRN NEB 06/20/24 08:00 Cancel Ipratropium [place] 0.5 mg Q4HR NEB 06/20/24 10:00 06/27/24 22:54 0.5 MG Ceftriaxone Sodium 50 ml @ 100 mls/hr DAILY@09 IV 06/20/24 09:00 06/27/24 09:12 100 MLS/HR Azithromycin 250 ml @ 125 mls/hr DAILY IV 06/20/24 10:00 06/27/24 10:40 125 MLS/HR Enoxaparin Sodium 30 mg DAILY SC 06/20/24 10:00 UNV Fentanyl Citrate 250 ml @ 2.5 mls/hr Q24H IV 06/20/24 08:30 06/27/24 19:32 20 MLS/HR Enoxaparin Sodium 40 mg DAILY SC 06/20/24 10:00 06/27/24 10:40 40 MG Norepinephrine Bitartrate 250 ml @ 3.75 mls/hr Q24H IV 06/20/24 09:01 06/20/24 09:16 3.75 MLS/HR Dexmedetomidine HCl 400 mcg/ Dextrose 100 ml @ 4.09 mls/hr Q24H IV 06/22/24 10:00 06/23/24 00:30 4.09 MLS/HR Propofol 100 ml @ 2.454 mls/ hr Q24H IV 06/22/24 15:45 06/27/24 19:31 22.086 MLS/HR Sodium Chloride 1,000 ml @ 100 mls/hr Q10H IV 06/23/24 09:30 06/27/24 22:03 100 MLS/HR Pantoprazole Sodium 40 mg DAILY IV 06/26/24 10:00 06/27/24 10:39 40 MG Enteral Nutritional Formula 1,000 ml 40ML/HR GT 06/26/24 14:00 06/27/24 18:09 1,000 ML Quetiapine Fumarate 100 mg BID PO 06/26/24 22:00 06/27/24 22:03 100 MG objective Gen.: Patient lying in bed in medical ICU. Sedated, intubated on mechanical ventilator. Head: Normocephalic, atraumatic. Eyes: PERRLA. Ears: Normal external anatomy. Throat: Endotracheal tube and orogastric tube in place. Neck: Supple, trachea midline. Chest: Transmitted breath sounds bilaterally. Decreased air entry bilaterally. No wheezing. Bibasilar crackles. Cardiovascular: Positive S1, positive S2. Regular rate and rhythm. Abdomen: Positive bowel sounds in all 4 quadrants. Soft, nontender, nondistended. : Mena in place. Normal external genitalia. Rectal: Deferred. Skin: Warm, dry. Intact. Extremities: 2+ radial pulses bilaterally. No lower extremity edema. Neuro: Sedated. laboratory and microbiology Laboratory Tests 06/27/24 10:05 Test 06/27/24 10:05 Range/Units Serum Glucose 146 H 74-106 mg/dL Assessment/Plan Impression: Acute hypoxic respiratory failure On mechanical ventilator COPD exacerbation Nicotine dependence Elevated troponin Atrial fibrillation Hypertension Events: Remains on vent support On AC mode; RR 18, VT 550, PEEP 5, FiO2 30% Sedated on Propofol, Fentanyl Seroquel 100 mg via NGT q.12 hours Continue bronchodilators Continue IV steroids Continue IV antibiotics IV fluids at 100 mL/hr. Off Levophed, hemodynamically stable. Tube feeds for nutritional support Patient gets agitated with decrease in sedation. Plan to stop sedation in AM. Extubate directly to BiPAP Labs and imaging reviewed. Rest of plan as noted below. Plan: s/p intubation on mechanical ventilator. CXR image and report reviewed. Devices in place. Pulmonary congestion. No pneumothorax. No pleural effusion. ABG reviewed, compensated. Labs reviewed, within normal limits. On AC mode; RR 18, VT 550, PEEP 5, FiO2 30% Titrate FIO2 to keep O2 saturation above 90%. VAP bundle. Daily ABG and CXR while intubated Sedate for ventilator synchrony Continue bronchodilators. IV steroids Continue antibiotics. Start pressors if necessary to maintain a mean arterial blood pressure greater than 65 mmHg. Monitor renal function Monitor electrolytes. Supplement as necessary. Monitor ins and outs. GI prophylaxis. DVT prophylaxis. Prognosis: Poor given patient's multiple co-morbidities. Condition: Critical Rest of plan per hospitalist and other consultants. A total of 35 minutes of critical care time was spent reviewing the patient record, examining the patient, making a diagnostic and therapeutic plan, discussing this plan with the medical personnel, following up on diagnostic studies and following the patient for clinical stability excluding any and all procedures. At least 50% of this time was spent in direct, [id number] contact. Thank you, JENNIFER Espitia, for allowing me to participate in this patient's care. Further recommendations will depend on the patient's clinical course. Please do not hesitate to contact me if you have any questions or concerns. This medical document was created using an electronic medical record system with Dragon computerized dictation system. Although these documentations are being carefully reviewed, there may still be some phonetic and typographical changes. The errors are purely typographical, due to imperfection on the software program, and do not reflect any compromise in the patient's medical care. Dietary Evaluation Review Comments: 1. If EN/GI accessible, Glucerna 45ml/hr, 65g pro 1296 kcal, satisfies pt's needs for Pro 80 %, Kcal 80%, in additon Propofol provides 110 kcal/100ml fat kcal Thus pt will have 1406 total kcal, supporting pt 's energy needs is increasedd to 86%. 2. If EN/GI not a option, NPO > 7 days, offer TPN per pharmacy 3. If pt off vent, passess speech eval, offer 2 g Na CCHO-60 low fat Low cholesterol diet. Expected Outcomes/Goals: gradually healed wounds, graudal weight loss, controlled blood glucose. Plan discussed with: Other (ADELINE Chapa) Critical Care Time(min): 35 ILYA GARCES MD Jun 27, 2024 23:16
[2024-06-28] VITALS (109 sets, daily range): BP systolic 105–176; BP diastolic 56–109; PULSE 47–145; RESP 15–21; TEMP 96.1–99.5; O2SAT 92–100
[2024-06-28 04:03] LABS: Basophils # (auto) 0.1 10 ^3/uL (0-0.2); Basophils % (auto) 1.1 % (0.0-2.0); Eosinophils # (auto) 0 10 ^3/uL (0-0.8); Eosinophils % (auto) 0.1 % (0.0-7.0); Hematocrit 33.9 % (41.0-53.0); Lymphocytes # (auto) 0.4 10 ^3/uL (0.4-5.4); Lymphocytes % (auto) 3.8 % (10.0-50.0); Mean Corpuscular Hgb Conc. 32.4 g/dL (32.0-36.0); Mean Corpuscular Volume 89.6 fL (80.0-100.0); Monocytes # (auto) 0.6 10 ^3/uL (0-1.3); Monocytes % (auto) 6.2 % (0.0-12.0); Neutrophils # (auto) 8.3 10 ^3/uL (1.6-8.6); Neutrophils % (auto) 88.8 % (37.0-80.0); Nucleated Red Blood Cells % 0.2 %; Platelet Count (auto) 355 10^3/uL (140-450); Red Blood Cells 3.79 10^6/uL (4.5-5.90); Red Cell Distribution Width 16.6 % (11.8-14.3); White Blood Cell 9.3 10^3/uL (4.4-10.8)
[2024-06-28 04:19] LABS: Anion Gap 8 (5-15); Carbon Dioxide 26 mmol/L (20-31); Chloride 107 mmol/L (98-107); Potassium 4.3 mmol/L (3.5-5.1); Sodium 141 mmol/L (136-145)
[2024-06-28 04:21] LABS: Calcium 9.6 mg/dL (8.7-10.4)
[2024-06-28 04:25] LABS: BUN/Creatinine Ratio 30.2 (10.0-20.0); Blood Urea Nitrogen 16 mg/dL (9-23)
[2024-06-28 04:27] LABS: Glucose 116 mg/dL (74-106)
--- NOTE | 2024-06-28 04:56 | DVH ---
CHEST RADIOGRAPH Indication: respiratory failure Technique: Single frontal view of the chest was obtained Comparison: XY CHEST XRAY 1 VIEW on DOS: 06/27/24 FINDINGS: Lines and Tubes: The enteric tube courses below the left hemidiaphragm and the tip extends outside th e field of view. The endotracheal tube terminates 3.5 cm above the ashley. Left central venous cathet er terminates in the superior vena cava. Lungs: Hazy right upper lobe opacities. Pleura: No pleural effusion or pneumothorax. No pneumothorax. Cardiomediastinal contours: Unremarkable Bones: No acute osseous abnormality. IMPRESSION: 1. Hazy right upper lobe opacities.
[2024-06-28 07:57] LABS: Base Excess 2.2 mmol/L (-2.0-3.0)
--- NOTE | 2024-06-28 09:30 | DVHPN2 ---
Subjective Patient chemically sedated Reviewed: Care Plan, H&P, Labs, Medications, Previous Orders, Radiology, Other (Consultations) Changes from previous H/P or p: No Changes General: Per HPI Objective Vitals Vital Signs Date Time Temp Pulse Resp B/P (MAP) Pulse Ox O2 Delivery O2 Flow Rate FiO2 06/28/24 09:01 139/72 06/28/24 08:30 97.3 50 18 99 207.1 06/28/24 08:00 Mechanical Ventilator+ 35 35 Intake/Output Intake and Output 06/28/24 07:00 Intake Total 2884.570 ml Output Total 2450 ml Balance 434.570 ml Intake Oral 0 ml IV Total 2844.570 ml Tube Feeding 40 ml Output Urine Total 2450 ml General Appearance: Other (Intubated and sedated) HEENT: Atraumatic Lungs: Clear to auscultation, Normal air movement, Other (Mechanical ventilation) Cardiovascular: Normal S1, Normal S2, Other (Bradycardia) Abdomen: Normal bowel sounds, Soft Genitourinary: Other (Bloom's catheter) Extremities: No edema, Normal pulses Neuro: Other (Unable to assess) Skin: Dry, Intact Psych/Mental Status: Other (Unable to assess) Medications Current Medications Medications Dose Ordered Sig/Milvia Route Start Time Stop Time Status Last Admin Dose Admin Ondansetron HCl 4 mg Q4HP PRN IV 06/20/24 07:15 Nitroglycerin 0.4 mg Q5MINP PRN SL 06/20/24 07:15 Morphine Sulfate 2 mg Q30M PRN IV 06/20/24 07:15 Albuterol 2.5 mg Q4HR NEB 06/20/24 10:00 06/28/24 06:33 2.5 MG Ipratropium [place] 0.5 mg Q4HPRN PRN NEB 06/20/24 07:30 Cancel Methylprednisolone Sodium Succinate 40 mg Q8HR IV 06/20/24 14:00 06/28/24 05:47 40 MG Budesonide 0.5 mg BID NEB 06/20/24 10:00 06/28/24 06:33 0.5 MG Midazolam HCl 50 ml @ 1 mls/hr Q24H IV 06/20/24 07:45 06/28/24 03:34 1 MLS/HR Albuterol 2.5 mg Q4HPRN PRN NEB 06/20/24 08:00 Cancel Ipratropium [place] 0.5 mg Q4HR NEB 06/20/24 10:00 06/28/24 06:33 0.5 MG Ceftriaxone Sodium 50 ml @ 100 mls/hr DAILY@09 IV 06/20/24 09:00 06/28/24 09:16 100 MLS/HR Azithromycin 250 ml @ 125 mls/hr DAILY IV 06/20/24 10:00 06/27/24 10:40 125 MLS/HR Enoxaparin Sodium 30 mg DAILY SC 06/20/24 10:00 UNV Fentanyl Citrate 250 ml @ 2.5 mls/hr Q24H IV 06/20/24 08:30 06/28/24 05:15 25 MLS/HR Enoxaparin Sodium 40 mg DAILY SC 06/20/24 10:00 06/28/24 09:17 40 MG Norepinephrine Bitartrate 250 ml @ 3.75 mls/hr Q24H IV 06/20/24 09:01 06/20/24 09:16 3.75 MLS/HR Dexmedetomidine HCl 400 mcg/ Dextrose 100 ml @ 4.09 mls/hr Q24H IV 06/22/24 10:00 06/23/24 00:30 4.09 MLS/HR Propofol 100 ml @ 2.454 mls/ hr Q24H IV 06/22/24 15:45 06/28/24 06:52 19.632 MLS/HR Sodium Chloride 1,000 ml @ 100 mls/hr Q10H IV 06/23/24 09:30 06/28/24 08:05 100 MLS/HR Pantoprazole Sodium 40 mg DAILY IV 06/26/24 10:00 06/28/24 09:16 40 MG Enteral Nutritional Formula 1,000 ml 40ML/HR GT 06/26/24 14:00 06/27/24 18:09 1,000 ML Quetiapine Fumarate 100 mg BID PO 06/26/24 22:00 06/28/24 09:16 100 MG Laboratory Results Laboratory Tests 06/28/24 03:45 Chemistry Test 06/27/24 10:05 06/28/24 03:45 Calcium Level 9.1 mg/dL (8.7-10.4) 9.6 mg/dL (8.7-10.4) Urinalysis Test 06/20/24 11:23 06/23/24 10:15 Urine Hyaline Casts Few /lpf (0 - 2) Urine Color Light-yellow (Yellow) Urine Clarity Clear (Clear) Urine pH 6.0 (5.0-9.0) Urine Specific [place] 1.013 (1.001-1.035) Urine Protein Negative (Negative) Urine Ketones Negative (Negative) Urine Blood 2+ /uL (Negative) H Urine Nitrite Negative (Negative) Urine Bilirubin Negative (Negative) Urine Urobilinogen Normal mg/dL (Negative) Urine Leukocyte Esterase Negative /uL (Negative) Urine RBC 115 /hpf (0 - 3) Urine Microscopic WBC 2 /HPF (0-3) Urine Squamous Epithelial Cells None seen /hpf (<5) Urine Bacteria None seen /hpf (None Seen) Urine Mucus Few (None Seen) Urine Creatinine 69.90 mg/dL (30.0-125.0) Urine Protein/Creatinine Ratio 0.21 Urine Sodium 58 mmol/L (40-220) Urine Glucose Normal mg/dL (Normal) Urine Total Protein 14.8 mg/dL (1-14) H Blood Gas Results Test 06/28/24 07:19 Arterial Blood pH 7.455 (7.350-7.450) FiO2 % 35.0 Microbiology Microbiology Date/Time Source Procedure Growth Status 06/23/24 01:35 Urine - [place] Urine Culture - Final Complete 06/22/24 08:30 Nose MRSA Screen - Final Complete 06/20/24 08:23 Sputum Gram Stain - Final Complete 06/20/24 08:23 Sputum Respiratory Culture - Final Complete 06/20/24 05:19 Blood Blood Culture - Final NO GROWTH AFTER 5 DAYS OF INCUBATION. 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 Plans for short weaning trial with extubation follow. Provider will be bedside per management situation. -atropine 0.4 mg IV for sinus pause and bradycardia -continue current ventilator settings -CPAP trial in a.m. -weaned current sedation -continue antibiotic therapy -PUD, DVT prophylaxis -repeat labs in a.m. Critical care time spent with patient discussing and formulating plan of care: 40 minutes. This does not include time spent performing procedures. This medical document was created using an electronic medical record system with Bib + Tuck dictation system. Although this document has been carefully reviewed, there may still be some phonetic and typographical errors. These areas are purely typographical due to imperfections of the software programs, and do not reflect any compromise in the patient's medical care. Plan discussed with: Patient, Other (RN) Date of Service: Jun 28, 2024 Billing Provider: ESSENCE FONG NP Common Visit Codes: [id number] CARE 30-74 MIN ESSENCE FONG NP Jun 28, 2024 09:30
--- NOTE | 2024-06-28 10:52 | DVHPN2 ---
Consult Progress Note Date Seen: Jun 28, 2024 Subjective Other Systems: No overnight cardiac events reported Objective vital signs Vital Sign Date Time Temp Pulse Resp B/P (MAP) Pulse Ox O2 Delivery O2 Flow Rate FiO2 06/28/24 10:45 96.1 49 18 139/78 (98) 99 205.0 06/28/24 10:17 35 06/28/24 10:00 Mechanical Ventilator+ Total Intake and Output 06/27/24 06/27/24 06/28/24 15:00 23:00 07:00 Intake Total 1469.280 ml 994.832 ml 420.458 ml Output Total 1450 ml 1000 ml Balance 1469.280 ml -455.168 ml -579.542 ml medications Current Medications Medications Dose Ordered Sig/Milvia Route Start Time Stop Time Status Last Admin Dose Admin Ondansetron HCl 4 mg Q4HP PRN IV 06/20/24 07:15 Nitroglycerin 0.4 mg Q5MINP PRN SL 06/20/24 07:15 Morphine Sulfate 2 mg Q30M PRN IV 06/20/24 07:15 Albuterol 2.5 mg Q4HR NEB 06/20/24 10:00 06/28/24 10:17 2.5 MG Ipratropium [place] 0.5 mg Q4HPRN PRN NEB 06/20/24 07:30 Cancel Methylprednisolone Sodium Succinate 40 mg Q8HR IV 06/20/24 14:00 06/28/24 05:47 40 MG Budesonide 0.5 mg BID NEB 06/20/24 10:00 06/28/24 06:33 0.5 MG Midazolam HCl 50 ml @ 1 mls/hr Q24H IV 06/20/24 07:45 06/28/24 03:34 1 MLS/HR Albuterol 2.5 mg Q4HPRN PRN NEB 06/20/24 08:00 Cancel Ipratropium [place] 0.5 mg Q4HR NEB 06/20/24 10:00 06/28/24 10:17 0.5 MG Ceftriaxone Sodium 50 ml @ 100 mls/hr DAILY@09 IV 06/20/24 09:00 06/28/24 09:16 100 MLS/HR Azithromycin 250 ml @ 125 mls/hr DAILY IV 06/20/24 10:00 06/27/24 10:40 125 MLS/HR Enoxaparin Sodium 30 mg DAILY SC 06/20/24 10:00 UNV Fentanyl Citrate 250 ml @ 2.5 mls/hr Q24H IV 06/20/24 08:30 06/28/24 05:15 25 MLS/HR Enoxaparin Sodium 40 mg DAILY SC 06/20/24 10:00 06/28/24 09:17 40 MG Norepinephrine Bitartrate 250 ml @ 3.75 mls/hr Q24H IV 06/20/24 09:01 06/20/24 09:16 3.75 MLS/HR Dexmedetomidine HCl 400 mcg/ Dextrose 100 ml @ 4.09 mls/hr Q24H IV 06/22/24 10:00 06/23/24 00:30 4.09 MLS/HR Propofol 100 ml @ 2.454 mls/ hr Q24H IV 06/22/24 15:45 06/28/24 06:52 19.632 MLS/HR Sodium Chloride 1,000 ml @ 100 mls/hr Q10H IV 06/23/24 09:30 06/28/24 08:05 100 MLS/HR Pantoprazole Sodium 40 mg DAILY IV 06/26/24 10:00 06/28/24 09:16 40 MG Enteral Nutritional Formula 1,000 ml 40ML/HR GT 06/26/24 14:00 06/27/24 18:09 1,000 ML Quetiapine Fumarate 100 mg BID PO 06/26/24 22:00 06/28/24 09:16 100 MG Examination: LUNGS:Abnormal (Mechanically ventilated 35% FiO2), CVS:Normal (Sinus bradycardia at 49 bpm. No overnight pauses or AVBs. Off pressors), NEURO:Abnormal (Chemically sedated) laboratory and microbiology Laboratory Tests 06/28/24 03:45 Test 06/28/24 03:45 Range/Units Serum Glucose 116 H 74-106 mg/dL Problem List/Assessment/Plan Problem List/Assessment/Plan Transient sinus pauses and non-sustained high-degree AVBs Severe COPD exacerbation Acute on chronic hypoxic respiratory failure NSTEMI, likely type 2 secondary to above Hx hypertension Dyslipidemia Prediabetes Acute kidney injury Nicotine dependence Plan/Recommendation (Dr. Ballard) There were no overnight sinus pauses or intermittent non-sustained high-degree atrioventricular blocks. Per primary RN, since the patient's pulse ox was repositioned there has not been any further bradyarrhythmias present. In the meantime, avoid all AV ivania blocking agents. Treat hyperkalemic events accordingly. Continue close ECG monitoring. Further recommendations per clinical course and progression. No indications for a temporary or permanent pacemakers at this time. Thank you for allowing us to care for this patient. Please call with any questions or concerns. Critical care time: 30 min. This medical document was created using an electronic medical record system with voice recognition software and computerized dictation system. Although this document has been carefully reviewed, there might still be some phonetic and typographical errors. Occasional wrong-word or ``sound-alike substitutions may have occurred due to the inherent limitations of voice recognition software. These areas are purely typographical due to imperfections of the software programs and do not reflect any compromise in the patient's medical care. Please read the chart carefully and recognize, using context, where these substitutions have occurred. Plan discussed with: Other Dietary Evaluation Review Comments: 1. If EN/GI accessible, Glucerna 45ml/hr, 65g pro 1296 kcal, satisfies pt's needs for Pro 80 %, Kcal 80%, in additon Propofol provides 110 kcal/100ml fat kcal Thus pt will have 1406 total kcal, supporting pt 's energy needs is increasedd to 86%. 2. If EN/GI not a option, NPO > 7 days, offer TPN per pharmacy 3. If pt off vent, passess speech eval, offer 2 g Na CCHO-60 low fat Low cholesterol diet. Expected Outcomes/Goals: gradually healed wounds, graudal weight loss, controlled blood glucose. Date of Service: Jun 28, 2024 Billing Provider: MOOK OROZCO Cardiology Common Codes: [id number] HOSP CARE(High MOOK OROZCO Jun 28, 2024 10:52
--- NOTE | 2024-06-28 23:45 | DVHPN2 ---
Progress Note - Dictate Date Seen: Jun 28, 2024 Medical Necessity Reason Pt with a Central, PICC or Fol: Yes The following are medically ne: Mena Catheter Reason for mena catheter: Strict I&O Subjective Patient seen and examined at bedside. Sedated, intubated on mechanical ventilator. Overnight events reviewed. vital signs Vital Sign Date Time Temp Pulse Resp B/P (MAP) Pulse Ox O2 Delivery O2 Flow Rate FiO2 06/28/24 23:21 53 18 129/71 (90) 97 30 06/28/24 23:00 97.9 208.2 06/28/24 22:00 Mechanical Ventilator+ Total Intake and Output 06/27/24 06/27/24 06/28/24 15:00 23:00 07:00 Intake Total 1469.280 ml 994.832 ml 420.458 ml Output Total 1450 ml 1000 ml Balance 1469.280 ml -455.168 ml -579.542 ml medications Current Medications Medications Dose Ordered Sig/Milvia Route Start Time Stop Time Status Last Admin Dose Admin Ondansetron HCl 4 mg Q4HP PRN IV 06/20/24 07:15 Nitroglycerin 0.4 mg Q5MINP PRN SL 06/20/24 07:15 Morphine Sulfate 2 mg Q30M PRN IV 06/20/24 07:15 Albuterol 2.5 mg Q4HR NEB 06/20/24 10:00 06/28/24 22:14 2.5 MG Ipratropium [place] 0.5 mg Q4HPRN PRN NEB 06/20/24 07:30 Cancel Methylprednisolone Sodium Succinate 40 mg Q8HR IV 06/20/24 14:00 06/28/24 21:30 40 MG Budesonide 0.5 mg BID NEB 06/20/24 10:00 06/28/24 19:08 0.5 MG Midazolam HCl 50 ml @ 1 mls/hr Q24H IV 06/20/24 07:45 06/28/24 16:20 2 MLS/HR Albuterol 2.5 mg Q4HPRN PRN NEB 06/20/24 08:00 Cancel Ipratropium [place] 0.5 mg Q4HR NEB 06/20/24 10:00 06/28/24 22:14 0.5 MG Ceftriaxone Sodium 50 ml @ 100 mls/hr DAILY@09 IV 06/20/24 09:00 06/28/24 09:16 100 MLS/HR Azithromycin 250 ml @ 125 mls/hr DAILY IV 06/20/24 10:00 06/28/24 11:03 125 MLS/HR Enoxaparin Sodium 30 mg DAILY SC 06/20/24 10:00 UNV Fentanyl Citrate 250 ml @ 2.5 mls/hr Q24H IV 06/20/24 08:30 06/28/24 17:18 20 MLS/HR Enoxaparin Sodium 40 mg DAILY SC 06/20/24 10:00 06/28/24 09:17 40 MG Norepinephrine Bitartrate 250 ml @ 3.75 mls/hr Q24H IV 06/20/24 09:01 06/20/24 09:16 3.75 MLS/HR Dexmedetomidine HCl 400 mcg/ Dextrose 100 ml @ 4.09 mls/hr Q24H IV 06/22/24 10:00 06/23/24 00:30 4.09 MLS/HR Propofol 100 ml @ 2.454 mls/ hr Q24H IV 06/22/24 15:45 06/28/24 19:44 17.178 MLS/HR Sodium Chloride 1,000 ml @ 100 mls/hr Q10H IV 06/23/24 09:30 06/28/24 19:44 100 MLS/HR Pantoprazole Sodium 40 mg DAILY IV 06/26/24 10:00 06/28/24 09:16 40 MG Enteral Nutritional Formula 1,000 ml 40ML/HR GT 06/26/24 14:00 06/27/24 18:09 1,000 ML Quetiapine Fumarate 100 mg BID PO 06/26/24 22:00 06/28/24 21:30 100 MG objective Gen.: Patient lying in bed in medical ICU. Sedated, intubated on mechanical ventilator. Head: Normocephalic, atraumatic. Eyes: PERRLA. Ears: Normal external anatomy. Throat: Endotracheal tube and orogastric tube in place. Neck: Supple, trachea midline. Chest: Transmitted breath sounds bilaterally. Decreased air entry bilaterally. No wheezing. Bibasilar crackles. Cardiovascular: Positive S1, positive S2. Regular rate and rhythm. Abdomen: Positive bowel sounds in all 4 quadrants. Soft, nontender, nondistended. : Mena in place. Normal external genitalia. Rectal: Deferred. Skin: Warm, dry. Intact. Extremities: 2+ radial pulses bilaterally. No lower extremity edema. Neuro: Sedated. laboratory and microbiology Laboratory Tests 06/28/24 03:45 Test 06/28/24 03:45 Range/Units Serum Glucose 116 H 74-106 mg/dL Assessment/Plan Impression: Acute hypoxic respiratory failure On mechanical ventilator COPD exacerbation Nicotine dependence Elevated troponin Atrial fibrillation Hypertension Events: Remains on vent support On AC mode; RR 18, VT 550, PEEP 5, FiO2 30% Sedated on Versed, Propofol, Fentanyl Seroquel 100 mg via NGT q.12 hours Continue bronchodilators Continue IV steroids Continue IV antibiotics IV fluids at 100 mL/hr. Off pressors, hemodynamically stable. Tube feeds for nutritional support Taper sedation as tolerated Plan for CPAP vs. plan to stop sedation and extubate directly to BiPAP Labs and imaging reviewed. Rest of plan as noted below. Plan: s/p intubation on mechanical ventilator. CXR image and report reviewed. Devices in place. Pulmonary congestion. No pneumothorax. No pleural effusion. ABG reviewed, compensated. Labs reviewed, within normal limits. On AC mode; RR 18, VT 550, PEEP 5, FiO2 30% Titrate FIO2 to keep O2 saturation above 90%. VAP bundle. Daily ABG and CXR while intubated Sedate for ventilator synchrony Continue bronchodilators. IV steroids Continue antibiotics. Start pressors if necessary to maintain a mean arterial blood pressure greater than 65 mmHg. Monitor renal function Monitor electrolytes. Supplement as necessary. Monitor ins and outs. GI prophylaxis. DVT prophylaxis. Prognosis: Poor given patient's multiple co-morbidities. Condition: Critical Rest of plan per hospitalist and other consultants. A total of 35 minutes of critical care time was spent reviewing the patient record, examining the patient, making a diagnostic and therapeutic plan, discussing this plan with the medical personnel, following up on diagnostic studies and following the patient for clinical stability excluding any and all procedures. At least 50% of this time was spent in direct, [id number] contact. Thank you, JENNIFER Espitia, for allowing me to participate in this patient's care. Further recommendations will depend on the patient's clinical course. Please do not hesitate to contact me if you have any questions or concerns. This medical document was created using an electronic medical record system with Dragon computerized dictation system. Although these documentations are being carefully reviewed, there may still be some phonetic and typographical changes. The errors are purely typographical, due to imperfection on the software program, and do not reflect any compromise in the patient's medical care. Dietary Evaluation Review Comments: 1. If EN/GI accessible, Glucerna 45ml/hr, 65g pro 1296 kcal, satisfies pt's needs for Pro 80 %, Kcal 80%, in additon Propofol provides 110 kcal/100ml fat kcal Thus pt will have 1406 total kcal, supporting pt 's energy needs is increasedd to 86%. 2. If EN/GI not a option, NPO > 7 days, offer TPN per pharmacy 3. If pt off vent, passess speech eval, offer 2 g Na CCHO-60 low fat Low cholesterol diet. Expected Outcomes/Goals: gradually healed wounds, graudal weight loss, controlled blood glucose. Plan discussed with: Other (ADELINE Armstrong) Critical Care Time(min): 35 ILYA GARCES MD Jun 28, 2024 23:45
[2024-06-29] VITALS (110 sets, daily range): BP systolic 88–193; BP diastolic 51–119; PULSE 48–153; RESP 12–33; TEMP 96.4–99.1; O2SAT 91–100
[2024-06-29 07:18] LABS: Base Excess -0.9 mmol/L (-2.0-3.0)
--- NOTE | 2024-06-29 08:40 | DVHPN2 ---
Subjective Patient chemically sedated Reviewed: Care Plan, H&P, Labs, Medications, Previous Orders, Radiology, Other (Consultations) Changes from previous H/P or p: No Changes General: Per HPI Objective Vitals Vital Signs Date Time Temp Pulse Resp B/P (MAP) Pulse Ox O2 Delivery O2 Flow Rate FiO2 06/29/24 07:34 53 18 125/68 (87) 97 30 06/29/24 07:00 99.0 210.2 06/29/24 06:00 Mechanical Ventilator+ Intake/Output Intake and Output 06/29/24 07:00 Intake Total 3793.259 ml Output Total 2200 ml Balance 1593.259 ml Intake Oral 120 ml IV Total 3673.259 ml Tube Feeding 0 ml Output Urine Total 2200 ml General Appearance: moderate distress, Other (Intubated and sedated) HEENT: Atraumatic Lungs: Clear to auscultation, Normal air movement, Other (Mechanical ventilation) Cardiovascular: Normal S1, Normal S2, Other (Bradycardia) Abdomen: Normal bowel sounds, Soft Genitourinary: Other (Bloom[place] catheter) Extremities: No edema, Normal pulses Neuro: Other (Unable to assess) Skin: Dry, Intact Psych/Mental Status: Other (Unable to assess) Medications Current Medications Medications Dose Ordered Sig/Milvia Route Start Time Stop Time Status Last Admin Dose Admin Ondansetron HCl 4 mg Q4HP PRN IV 06/20/24 07:15 Nitroglycerin 0.4 mg Q5MINP PRN SL 06/20/24 07:15 Morphine Sulfate 2 mg Q30M PRN IV 06/20/24 07:15 Albuterol 2.5 mg Q4HR NEB 06/20/24 10:00 06/29/24 06:01 2.5 MG Ipratropium [place] 0.5 mg Q4HPRN PRN NEB 06/20/24 07:30 Cancel Budesonide 0.5 mg BID NEB 06/20/24 10:00 06/29/24 06:01 0.5 MG Midazolam HCl 50 ml @ 1 mls/hr Q24H IV 06/20/24 07:45 06/28/24 16:20 2 MLS/HR Albuterol 2.5 mg Q4HPRN PRN NEB 06/20/24 08:00 Cancel Ipratropium [place] 0.5 mg Q4HR NEB 06/20/24 10:00 06/29/24 06:00 0.5 MG Ceftriaxone Sodium 50 ml @ 100 mls/hr DAILY@09 IV 06/20/24 09:00 06/28/24 09:16 100 MLS/HR Enoxaparin Sodium 30 mg DAILY SC 06/20/24 10:00 UNV Fentanyl Citrate 250 ml @ 2.5 mls/hr Q24H IV 06/20/24 08:30 06/29/24 04:47 20 MLS/HR Enoxaparin Sodium 40 mg DAILY SC 06/20/24 10:00 06/28/24 09:17 40 MG Norepinephrine Bitartrate 250 ml @ 3.75 mls/hr Q24H IV 06/20/24 09:01 06/20/24 09:16 3.75 MLS/HR Dexmedetomidine HCl 400 mcg/ Dextrose 100 ml @ 4.09 mls/hr Q24H IV 06/22/24 10:00 06/23/24 00:30 4.09 MLS/HR Propofol 100 ml @ 2.454 mls/ hr Q24H IV 06/22/24 15:45 06/29/24 07:08 17.178 MLS/HR Sodium Chloride 1,000 ml @ 100 mls/hr Q10H IV 06/23/24 09:30 06/29/24 03:48 100 MLS/HR Pantoprazole Sodium 40 mg DAILY IV 06/26/24 10:00 06/28/24 09:16 40 MG Enteral Nutritional Formula 1,000 ml 40ML/HR GT 06/26/24 14:00 06/27/24 18:09 1,000 ML Quetiapine Fumarate 100 mg BID PO 06/26/24 22:00 06/28/24 21:30 100 MG Methylprednisolone Sodium Succinate 40 mg Q12H IV 06/29/24 18:00 Laboratory Results Laboratory Tests 06/28/24 03:45 Urinalysis Test 06/20/24 11:23 06/23/24 10:15 Urine Hyaline Casts Few /lpf (0 - 2) Urine Color Light-yellow (Yellow) Urine Clarity Clear (Clear) Urine pH 6.0 (5.0-9.0) Urine Specific [place] 1.013 (1.001-1.035) Urine Protein Negative (Negative) Urine Ketones Negative (Negative) Urine Blood 2+ /uL (Negative) H Urine Nitrite Negative (Negative) Urine Bilirubin Negative (Negative) Urine Urobilinogen Normal mg/dL (Negative) Urine Leukocyte Esterase Negative /uL (Negative) Urine RBC 115 /hpf (0 - 3) Urine Microscopic WBC 2 /HPF (0-3) Urine Squamous Epithelial Cells None seen /hpf (<5) Urine Bacteria None seen /hpf (None Seen) Urine Mucus Few (None Seen) Urine Creatinine 69.90 mg/dL (30.0-125.0) Urine Protein/Creatinine Ratio 0.21 Urine Sodium 58 mmol/L (40-220) Urine Glucose Normal mg/dL (Normal) Urine Total Protein 14.8 mg/dL (1-14) H Blood Gas Results Test 06/29/24 07:01 Arterial Blood pH 7.426 (7.350-7.450) FiO2 % 30.0 Microbiology Microbiology Date/Time Source Procedure Growth Status 06/23/24 01:35 Urine - [place] Urine Culture - Final Complete 06/22/24 08:30 Nose MRSA Screen - Final Complete 06/20/24 08:23 Sputum Gram Stain - Final Complete 06/20/24 08:23 Sputum Respiratory Culture - Final Complete 06/20/24 05:19 Blood Blood Culture - Final NO GROWTH AFTER 5 DAYS OF INCUBATION. Complete Labs and/or images reviewed: Labs reviewed by me, Image(s) reviewed by me Assessment/Plan Assessment/Plan Impression: -acute on chronic hypoxic respiratory failure, now on mechanical ventilation -NSTEMI type 2 -rule out community-acquired pneumonia, Gram-positive/Gram-negative etiology -COPD with exacerbation -asthma -nicotine dependence -primary hypertension -atrial fibrillation Plan: Events: Reassess patient yesterday evening, with primary stating that they did not attempt to wean patient has a cook fruit did not come by despite having a long conversation in the a.m.. At this time weaning to be performed from ventilator by cook fruit's discretion. -continue current ventilator settings -taper steroids -weaned current sedation -continue antibiotic therapy -PUD, DVT prophylaxis -repeat labs in a.m. Critical care time spent with patient discussing and formulating plan of care: 40 minutes. This does not include time spent performing procedures. This medical document was created using an electronic medical record system with Pet[employer]ation system. Although this document has been carefully reviewed, there may still be some phonetic and typographical errors. These areas are purely typographical due to imperfections of the software programs, and do not reflect any compromise in the patient's medical care. Plan discussed with: Patient, Other (RN) My Orders Orders - ESSENCE FONG NP Procedure Category Date Status Time Cpap Trial For Am ORDERS 06/28/24 Transmitted 09:25 Cpap/Sed Vacation Med ORDERS 06/28/24 Transmitted Weaning 09:25 Methylprednisolone PHA 06/29/24 In Process Sod Succ (Solu Medrol 18:00 Basic Metabolic Panel LAB 06/30/24 Verified 04:00 Chest Portable XY 06/30/24 Logged 04:00 Abg W/ Co-Ox RT 06/30/24 Logged 04:00 Date of Service: Jun 29, 2024 Billing Provider: ESSENCE FONG NP Common Visit Codes: [id number] CARE 30-74 MIN ESSENCE FONG NP Jun 29, 2024 08:40
--- NOTE | 2024-06-29 11:49 | DVHPN2 ---
Consult Progress Note Objective vital signs Vital Sign Date Time Temp Pulse Resp B/P (MAP) Pulse Ox O2 Delivery O2 Flow Rate FiO2 06/29/24 11:16 72 22 131/72 99 30 06/29/24 09:00 98.8 209.8 06/29/24 08:00 Mechanical Ventilator+ Total Intake and Output 06/28/24 06/28/24 06/29/24 15:00 23:00 07:00 Intake Total 1695.332 ml 1173.424 ml 1063.681 ml Output Total 1550 ml 650 ml Balance 1695.332 ml -376.576 ml 413.681 ml medications Current Medications Medications Dose Ordered Sig/Milvia Route Start Time Stop Time Status Last Admin Dose Admin Ondansetron HCl 4 mg Q4HP PRN IV 06/20/24 07:15 Nitroglycerin 0.4 mg Q5MINP PRN SL 06/20/24 07:15 Albuterol 2.5 mg Q4HR [facility] 06/20/24 10:00 06/29/24 10:01 2.5 MG Ipratropium [place] 0.5 mg Q4HPRN PRN [facility] 06/20/24 07:30 Cancel Budesonide 0.5 mg BID [facility] 06/20/24 10:00 06/29/24 06:01 0.5 MG Midazolam HCl 50 ml @ 1 mls/hr Q24H IV 06/20/24 07:45 06/28/24 16:20 2 MLS/HR Albuterol 2.5 mg Q4HPRN PRN [facility] 06/20/24 08:00 Cancel Ipratropium [place] 0.5 mg Q4HR [facility] 06/20/24 10:00 06/29/24 10:01 0.5 MG Ceftriaxone Sodium 50 ml @ 100 mls/hr DAILY@09 IV 06/20/24 09:00 06/29/24 09:52 100 MLS/HR Enoxaparin Sodium 30 mg DAILY SC 06/20/24 10:00 UNV Fentanyl Citrate 250 ml @ 2.5 mls/hr Q24H IV 06/20/24 08:30 06/29/24 04:47 20 MLS/HR Enoxaparin Sodium 40 mg DAILY SC 06/20/24 10:00 06/29/24 09:54 40 MG Norepinephrine Bitartrate 250 ml @ 3.75 mls/hr Q24H IV 06/20/24 09:01 06/20/24 09:16 3.75 MLS/HR Dexmedetomidine HCl 400 mcg/ Dextrose 100 ml @ 4.09 mls/hr Q24H IV 06/22/24 10:00 06/23/24 00:30 4.09 MLS/HR Propofol 100 ml @ 2.454 mls/ hr Q24H IV 06/22/24 15:45 06/29/24 07:08 17.178 MLS/HR Sodium Chloride 1,000 ml @ 100 mls/hr Q10H IV 06/23/24 09:30 06/29/24 03:48 100 MLS/HR Pantoprazole Sodium 40 mg DAILY IV 06/26/24 10:00 06/29/24 09:53 40 MG Enteral Nutritional Formula 1,000 ml 40ML/HR GT 06/26/24 14:00 06/27/24 18:09 1,000 ML Quetiapine Fumarate 100 mg BID PO 06/26/24 22:00 06/29/24 09:52 100 MG Methylprednisolone Sodium Succinate 40 mg Q12H IV 06/29/24 18:00 laboratory and microbiology Laboratory Tests 06/28/24 03:45 Test 06/28/24 03:45 Range/Units Serum Glucose 116 H 74-106 mg/dL Problem List/Assessment/Plan Problem List/Assessment/Plan Transient second degree type II atrioventricular block Severe COPD exacerbation Acute on chronic hypoxic respiratory failure NSTEMI, likely type 2 secondary to above Hx hypertension Dyslipidemia Prediabetes Acute kidney injury Nicotine dependence Plan/Recommendation (Dr. Ballard): Case discussed with . Patient noted to have episodes of pauses (less than 3 seconds), overnight and this morning as seen on school bus monitor. At this time, we will continue to monitor closely. We will recommend to avoid all AV ivania blocking agents. The patient needs to be on continuous ECG monitoring. Patient currently mechanically ventilated and chemically sedated. Patient failed CPAP trial today. Recommend weaning patient off sedation as tolerated. Patient now in sinus rhythm on school bus monitor, no other cardiac events seen this time. Further recommendations per clinical course and progression. Thank you for allowing us to care for this patient. Please call with any questions or concerns. Critical care time: 35 min. This medical document was created using an electronic medical record system with voice recognition software and computerized dictation system. Although this document has been carefully reviewed, there might still be some phonetic and typographical errors. Occasional wrong-word or ``sound-alike substitutions may have occurred due to the inherent limitations of voice recognition software. These areas are purely typographical due to imperfections of the software programs and do not reflect any compromise in the patient's medical care. Please read the chart carefully and recognize, using context, where these substitutions have occurred. Dietary Evaluation Review Comments: 1. If EN/GI accessible, Glucerna 45ml/hr, 65g pro 1296 kcal, satisfies pt's needs for Pro 80 %, Kcal 80%, in additon Propofol provides 110 kcal/100ml fat kcal Thus pt will have 1406 total kcal, supporting pt 's energy needs is increasedd to 86%. 2. If EN/GI not a option, NPO > 7 days, offer TPN per pharmacy 3. If pt off vent, passess speech eval, offer 2 g Na CCHO-60 low fat Low cholesterol diet. Expected Outcomes/Goals: gradually healed wounds, graudal weight loss, controlled blood glucose. SAMM YOUSSEF [facility] Jun 29, 2024 11:49
--- NOTE | 2024-06-29 14:01 | DVHPN2 ---
Consult Progress Note Subjective Other Systems: Patient remains chemically sedated and mechanically ventilated. No episodes of pauses or high-degree AV blocks noted on cardiac monitor technician. Objective vital signs Vital Sign Date Time Temp Pulse Resp B/P (MAP) Pulse Ox O2 Delivery O2 Flow Rate FiO2 06/29/24 13:47 62 18 137/71 (93) 98 30 06/29/24 09:00 98.8 209.8 06/29/24 08:00 Mechanical Ventilator+ Total Intake and Output 06/28/24 06/28/24 06/29/24 15:00 23:00 07:00 Intake Total 1695.332 ml 1173.424 ml 1063.681 ml Output Total 1550 ml 650 ml Balance 1695.332 ml -376.576 ml 413.681 ml medications Current Medications Medications Dose Ordered Sig/Milvia Route Start Time Stop Time Status Last Admin Dose Admin Ondansetron HCl 4 mg Q4HP PRN IV 06/20/24 07:15 Nitroglycerin 0.4 mg Q5MINP PRN SL 06/20/24 07:15 Albuterol 2.5 mg Q4HR NEB 06/20/24 10:00 06/29/24 13:47 2.5 MG Ipratropium [place] 0.5 mg Q4HPRN PRN NEB 06/20/24 07:30 Cancel Budesonide 0.5 mg BID [facility] 06/20/24 10:00 06/29/24 06:01 0.5 MG Midazolam HCl 50 ml @ 1 mls/hr Q24H IV 06/20/24 07:45 06/28/24 16:20 2 MLS/HR Albuterol 2.5 mg Q4HPRN PRN NEB 06/20/24 08:00 Cancel Ipratropium [place] 0.5 mg Q4HR NEB 06/20/24 10:00 06/29/24 13:46 0.5 MG Ceftriaxone Sodium 50 ml @ 100 mls/hr DAILY@09 IV 06/20/24 09:00 06/29/24 09:52 100 MLS/HR Enoxaparin Sodium 30 mg DAILY SC 06/20/24 10:00 UNV Fentanyl Citrate 250 ml @ 2.5 mls/hr Q24H IV 06/20/24 08:30 06/29/24 04:47 20 MLS/HR Enoxaparin Sodium 40 mg DAILY SC 06/20/24 10:00 06/29/24 09:54 40 MG Norepinephrine Bitartrate 250 ml @ 3.75 mls/hr Q24H IV 06/20/24 09:01 06/20/24 09:16 3.75 MLS/HR Dexmedetomidine HCl 400 mcg/ Dextrose 100 ml @ 4.09 mls/hr Q24H IV 06/22/24 10:00 06/23/24 00:30 4.09 MLS/HR Propofol 100 ml @ 2.454 mls/ hr Q24H IV 06/22/24 15:45 06/29/24 12:49 19.632 MLS/HR Sodium Chloride 1,000 ml @ 100 mls/hr Q10H IV 06/23/24 09:30 06/29/24 13:26 100 MLS/HR Pantoprazole Sodium 40 mg DAILY IV 06/26/24 10:00 06/29/24 09:53 40 MG Enteral Nutritional Formula 1,000 ml 40ML/HR GT 06/26/24 14:00 06/27/24 18:09 1,000 ML Quetiapine Fumarate 100 mg BID PO 06/26/24 22:00 06/29/24 09:52 100 MG Methylprednisolone Sodium Succinate 40 mg Q12H IV 06/29/24 18:00 Examination: GENERAL:Abnormal, LUNGS:Abnormal (Mechanically ventilated), CVS:Normal, NEURO:Abnormal (Chemically sedated) laboratory and microbiology Laboratory Tests 06/28/24 03:45 Test 06/28/24 03:45 Range/Units Serum Glucose 116 H 74-106 mg/dL Problem List/Assessment/Plan Problem List/Assessment/Plan Transient sinus pauses and non-sustained high-degree AVBs Severe COPD exacerbation Acute on chronic hypoxic respiratory failure NSTEMI, likely type 2 secondary to above Hx hypertension Dyslipidemia Prediabetes Acute kidney injury Nicotine dependence Plan/Recommendation (Dr. Moseley) There were no overnight sinus pauses or intermittent non-sustained high-degree atrioventricular blocks captured on cardiac monitor technician. We will recommend to continue to avoid all AV ivania blocking agents. Continue close ECG monitoring. Further recommendations per clinical course and progression. No indications for a temporary or permanent pacemakers at this time. Cardiology will sign off at this time. Please reconsult if needed. Thank you for allowing us to care for this patient. Please call with any questions or concerns. Critical care time: 30 min. This medical document was created using an electronic medical record system with voice recognition software and computerized dictation system. Although this document has been carefully reviewed, there might still be some phonetic and typographical errors. Occasional wrong-word or ``sound-alike substitutions may have occurred due to the inherent limitations of voice recognition software. These areas are purely typographical due to imperfections of the software programs and do not reflect any compromise in the patient's medical care. Please read the chart carefully and recognize, using context, where these substitutions have occurred. Plan discussed with: Other Dietary Evaluation Review Comments: 1. If EN/GI accessible, Glucerna 45ml/hr, 65g pro 1296 kcal, satisfies pt's needs for Pro 80 %, Kcal 80%, in additon Propofol provides 110 kcal/100ml fat kcal Thus pt will have 1406 total kcal, supporting pt 's energy needs is increasedd to 86%. 2. If EN/GI not a option, NPO > 7 days, offer TPN per pharmacy 3. If pt off vent, passess speech eval, offer 2 g Na CCHO-60 low fat Low cholesterol diet. Expected Outcomes/Goals: gradually healed wounds, graudal weight loss, controlled blood glucose. Date of Service: Jun 29, 2024 Billing Provider: DANE MOSELEY MD Common Visit Codes: [id number] INP/OBS CARE(HIGH) SAMM YOUSSEF [employer] Jun 29, 2024 14:01
[2024-06-29] MEDS: hydrALAZINE HCL 20 MG/ML VL ONE (16:32)
[2024-06-29] MEDS ORDERED: hydrALAZINE HCL 20 MG/ML VL IV PRN (16:45)
[2024-06-29] MEDS: METOPROLOL TARTRATE 1MG/1ML-5ML VIAL IV ONE ×2 (16:54→18:45)
[2024-06-29] MEDS ORDERED: MORPHINE SULFATE INJ 2 MG/ml SYRG IV PRN (17:00)
[2024-06-29] MEDS: ETOMIDATE (2MG/ML) 20ML VIAL IV ONE (17:30)
[2024-06-29] MEDS: ROCURONIUM 10MG/ML 10ML VIAL IV ONE (17:30)
[2024-06-29] MEDS: methylPREDNISolone SOD SUCC 40 MG/ML VL IV SCH (18:04)
--- NOTE | 2024-06-29 18:34 | DVH ---
CHEST RADIOGRAPH Indication: intubation Technique: Single frontal view of the chest was obtained COMPARISON: XY CHEST PORTABLE on DOS: 06/28/24, XY CHEST XRAY 1 VIEW on DOS: 06/27/24, XY CHEST XRAY 1 VIEW on DOS: 06/26/24, XY CHEST XRAY 1 VIEW on DOS: 06/25/24, XY CHEST XRAY 1 VIEW on DOS: 06/24/24 FINDINGS: Lines and Tubes: Endotracheal tube and enteric catheter in satisfactory position. Lungs: Patchy bilateral airspace disease. Pleura: No effusion. No pneumothorax. Cardiomediastinal contours: Unremarkable Bones: Unremarkable IMPRESSION: Lines and tubes in satisfactory position. No significant interval change.
[2024-06-29] MEDS: ALBUMIN 25% 100 ML IV ONE (19:11)
--- NOTE | 2024-06-29 23:10 | DVHPN2 ---
Progress Note - Dictate Date Seen: Jun 29, 2024 Medical Necessity Reason Pt with a Central, PICC or Fol: Yes The following are medically ne: Mena Catheter Reason for mena catheter: Strict I&O Subjective Patient seen and examined at bedside. Sedated, intubated on mechanical ventilator. Overnight events reviewed. vital signs Vital Sign Date Time Temp Pulse Resp B/P (MAP) Pulse Ox O2 Delivery O2 Flow Rate FiO2 06/29/24 22:18 53 18 96/54 (68) 99 60 06/29/24 18:30 97.2 207.0 06/29/24 18:00 Mechanical Ventilator+ Total Intake and Output 06/28/24 06/28/24 06/29/24 15:00 23:00 07:00 Intake Total 1695.332 ml 1173.424 ml 1063.681 ml Output Total 1550 ml 650 ml Balance 1695.332 ml -376.576 ml 413.681 ml medications Current Medications Medications Dose Ordered Sig/Milvia Route Start Time Stop Time Status Last Admin Dose Admin Ondansetron HCl 4 mg Q4HP PRN IV 06/20/24 07:15 Nitroglycerin 0.4 mg Q5MINP PRN SL 06/20/24 07:15 Albuterol 2.5 mg Q4HR NEB 06/20/24 10:00 06/29/24 22:17 2.5 MG Ipratropium [place] 0.5 mg Q4HPRN PRN NEB 06/20/24 07:30 Cancel Budesonide 0.5 mg BID [facility] 06/20/24 10:00 06/29/24 22:17 0.5 MG Midazolam HCl 50 ml @ 1 mls/hr Q24H IV 06/20/24 07:45 06/29/24 18:21 2 MLS/HR Albuterol 2.5 mg Q4HPRN PRN NEB 06/20/24 08:00 Cancel Ipratropium [place] 0.5 mg Q4HR [facility] 06/20/24 10:00 06/29/24 22:17 0.5 MG Ceftriaxone Sodium 50 ml @ 100 mls/hr DAILY@09 IV 06/20/24 09:00 06/29/24 09:52 100 MLS/HR Enoxaparin Sodium 30 mg DAILY SC 06/20/24 10:00 UNV Fentanyl Citrate 250 ml @ 2.5 mls/hr Q24H IV 06/20/24 08:30 06/29/24 18:41 20 MLS/HR Enoxaparin Sodium 40 mg DAILY SC 06/20/24 10:00 06/29/24 09:54 40 MG Norepinephrine Bitartrate 250 ml @ 3.75 mls/hr Q24H IV 06/20/24 09:01 06/20/24 09:16 3.75 MLS/HR Propofol 100 ml @ 2.454 mls/ hr Q24H IV 06/22/24 15:45 06/29/24 20:01 19.632 MLS/HR Sodium Chloride 1,000 ml @ 100 mls/hr Q10H IV 06/23/24 09:30 06/29/24 13:26 100 MLS/HR Pantoprazole Sodium 40 mg DAILY IV 06/26/24 10:00 06/29/24 09:53 40 MG Enteral Nutritional Formula 1,000 ml 40ML/HR GT 06/26/24 14:00 06/27/24 18:09 1,000 ML Quetiapine Fumarate 100 mg BID PO 06/26/24 22:00 06/29/24 21:48 100 MG Methylprednisolone Sodium Succinate 40 mg Q12H IV 06/29/24 18:00 06/29/24 18:04 40 MG Nicardipine HCl 250 ml @ 50 mls/hr Q5H IV 06/29/24 16:45 Hydralazine HCl 10 mg Q4HP PRN IV 06/29/24 16:45 Morphine Sulfate 2 mg Q4HPRN PRN IV 06/29/24 17:00 Dexmedetomidine HCl 400 mcg/ Dextrose 100 ml @ 4.09 mls/hr Q24H IV 06/29/24 17:15 06/29/24 17:15 4.09 MLS/HR objective Gen.: Patient lying in bed in medical ICU. Sedated, intubated on mechanical ventilator. Head: Normocephalic, atraumatic. Eyes: PERRLA. Ears: Normal external anatomy. Throat: Endotracheal tube and orogastric tube in place. Neck: Supple, trachea midline. Chest: Transmitted breath sounds bilaterally. Decreased air entry bilaterally. No wheezing. Bibasilar crackles. Cardiovascular: Positive S1, positive S2. Regular rate and rhythm. Abdomen: Positive bowel sounds in all 4 quadrants. Soft, nontender, nondistended. : Mena in place. Normal external genitalia. Rectal: Deferred. Skin: Warm, dry. Intact. Extremities: 2+ radial pulses bilaterally. No lower extremity edema. Neuro: Sedated. laboratory and microbiology Laboratory Tests 06/28/24 03:45 Test 06/28/24 03:45 Range/Units Serum Glucose 116 H 74-106 mg/dL Assessment/Plan Impression: Acute hypoxic respiratory failure On mechanical ventilator COPD exacerbation Nicotine dependence Elevated troponin Atrial fibrillation Hypertension Events: Sedation was tapered and patient extubated directly to BiPAP After 2 hours, patient developed respiratory distress with accessory muscle usage Pt was re-sedated. He was re-intubated and placed on mechanical ventilator - please see separate procedure note for details. Remains on vent support On AC mode; RR 18, VT 550, PEEP 5, FiO2 30% Sedated on Versed, Propofol, Fentanyl Seroquel 100 mg via NGT q.12 hours Continue bronchodilators Continue IV steroids Continue IV antibiotics IV fluids at 100 mL/hr. Off pressors, hemodynamically stable. Tube feeds for nutritional support SBT/ERIS Labs and imaging reviewed. Rest of plan as noted below. Plan: s/p intubation on mechanical ventilator. CXR image and report reviewed. Devices in place. Pulmonary congestion. No pneumothorax. No pleural effusion. ABG reviewed, compensated. Labs reviewed, within normal limits. On AC mode; RR 18, VT 550, PEEP 5, FiO2 30% Titrate FIO2 to keep O2 saturation above 90%. VAP bundle. Daily ABG and CXR while intubated Sedate for ventilator synchrony Continue bronchodilators. IV steroids Continue antibiotics. Start pressors if necessary to maintain a mean arterial blood pressure greater than 65 mmHg. Monitor renal function Monitor electrolytes. Supplement as necessary. Monitor ins and outs. GI prophylaxis. DVT prophylaxis. Prognosis: Poor given patient's multiple co-morbidities. Condition: Critical Rest of plan per hospitalist and other consultants. A total of 35 minutes of critical care time was spent reviewing the patient record, examining the patient, making a diagnostic and therapeutic plan, discussing this plan with the medical personnel, following up on diagnostic studies and following the patient for clinical stability excluding any and all procedures. At least 50% of this time was spent in direct, [id number] contact. Thank you, JENNIFER Espitia, for allowing me to participate in this patient's care. Further recommendations will depend on the patient's clinical course. Please do not hesitate to contact me if you have any questions or concerns. This medical document was created using an electronic medical record system with [employer] dictation system. Although these documentations are being carefully reviewed, there may still be some phonetic and typographical changes. The errors are purely typographical, due to imperfection on the software program, and do not reflect any compromise in the patient's medical care. Dietary Evaluation Review Comments: 1. If EN/GI accessible, Glucerna 45ml/hr, 65g pro 1296 kcal, satisfies pt's needs for Pro 80 %, Kcal 80%, in additon Propofol provides 110 kcal/100ml fat kcal Thus pt will have 1406 total kcal, supporting pt 's energy needs is increasedd to 86%. 2. If EN/GI not a option, NPO > 7 days, offer TPN per pharmacy 3. If pt off vent, passess speech eval, offer 2 g Na CCHO-60 low fat Low cholesterol diet. Expected Outcomes/Goals: gradually healed wounds, graudal weight loss, controlled blood glucose. Plan discussed with: Spouse, Other (RN Ty) Critical Care Time(min): 35 ILYA GARCES MD Jun 29, 2024 23:10
[2024-06-30] VITALS (107 sets, daily range): BP systolic 85–141; BP diastolic 48–83; PULSE 48–113; RESP 14–19; TEMP 97.3–100; O2SAT 93–99
--- NOTE | 2024-06-30 | DVHNC2 ---
Procedure - Date of Procedure: 06/29/2024 Procedure: Endotracheal Intubation INDICATION: Acute respiratory failure, accessory muscle usage Physician: Ilya Montana MD Ruling Machine Operator: Dr De La Rosa PGY1 CONSENT: Emergent procedure. Implied. Patient medications and allergies reviewed. Patient identification and proposed procedure were verified prior to the procedure by the physician, and a nurse in the patient's room. The heart rate, respiratory rate, oxygen saturations, blood pressure, adequacy of pulmonary ventilation, and response to care were monitored throughout the procedure. The physical status of the patient was reassessed after the procedure. PROCEDURE SUMMARY: A time out was performed. My hands were washed immediately prior to the procedure. I wore a surgical cap, mask with protective eyewear, gown and gloves throughout the procedure. The patient was placed on a classroom monitor including continuous pulse oximetry. The patient received 16 mg Etomidate and 50 mg rocuronium for induction. Cricoid pressure was maintained from time induction agent was given to time of cuff balloon inflation. Using a MAC 4 Post LaryngoScope and a size 8.0 endotracheal tube with stylet, the patient was intubated on the 1 attempt. The stylet was removed and cuff balloon was inflated. Appropriate endotracheal tube position was confirmed by direct visualization of vocal cord passage, fogging of the tube, CO2 colorimetric indicator and symmetric breath sounds. The tube was secured at 23 cm at the lips. Post intubation chest x-ray is demonstrates the ETT above the ashley and below lower part of clavicles. CPT Code: 30312 ILYA MONTANA MD Jun 30, 2024 00:00
[2024-06-30 04:12] LABS: Anion Gap 6 (5-15); Carbon Dioxide 26 mmol/L (20-31); Potassium 3.9 mmol/L (3.5-5.1); Sodium 140 mmol/L (136-145)
[2024-06-30 04:19] LABS: Blood Urea Nitrogen 19 mg/dL (9-23); Calcium 8.7 mg/dL (8.7-10.4); Chloride 108 mmol/L (98-107); Glucose 102 mg/dL (74-106)
--- NOTE | 2024-06-30 05:17 | DVH ---
EXAM: XR Chest, 1 View CLINICAL INDICATION: respiratory failure TECHNIQUE: Frontal view of the chest. COMPARISON: XY CHEST PORTABLE on DOS: 06/29/24, XY CHEST PORTABLE on DOS: 06/28/24, XY CHEST XRAY 1 V IEW on DOS: 06/27/24, XY CHEST XRAY 1 VIEW on DOS: 06/26/24, XY CHEST XRAY 1 VIEW on DOS: 06/25/24 FINDINGS: LUNGS AND PLEURAL SPACES: Pulmonary venous congestion. Bibasilar. No consolidation. No pneumotho rax. HEART: Unremarkable. No cardiomegaly. MEDIASTINUM: Unremarkable. Normal mediastinal contour. BONES/JOINTS: Unremarkable. No acute fracture. TUBES, LINES AND DEVICES: Stable tubes and lines. OTHER FINDINGS: . . IMPRESSION: Pulmonary venous congestion.
[2024-06-30 05:55] LABS: Basophils # (auto) 0 10 ^3/uL (0-0.2); Basophils % (auto) 0.1 % (0.0-2.0); Eosinophils # (auto) 0 10 ^3/uL (0-0.8); Hematocrit 32.9 % (41.0-53.0); Hemoglobin 10.5 g/dL (13.5-17.5); Lymphocytes # (auto) 0.5 10 ^3/uL (0.4-5.4); Lymphocytes % (auto) 4.3 % (10.0-50.0); Mean Corpuscular Hemoglobin 28.2 pg (28.0-32.0); Mean Corpuscular Hgb Conc. 31.9 g/dL (32.0-36.0); Mean Corpuscular Volume 88.4 fL (80.0-100.0); Monocytes # (auto) 1.2 10 ^3/uL (0-1.3); Monocytes % (auto) 10.9 % (0.0-12.0); Neutrophils # (auto) 9.5 10 ^3/uL (1.6-8.6); Neutrophils % (auto) 84.7 % (37.0-80.0); Nucleated Red Blood Cells % 0.1 %; Platelet Count (auto) 369 10^3/uL (140-450); Red Blood Cells 3.73 10^6/uL (4.5-5.90); Red Cell Distribution Width 16.4 % (11.8-14.3); White Blood Cell 11.3 10^3/uL (4.4-10.8)
[2024-06-30 08:05] LABS: Base Excess 0.5 mmol/L (-2.0-3.0)
--- NOTE | 2024-06-30 10:18 | DVHPN2 ---
Subjective Patient chemically sedated Reviewed: Care Plan, H&P, Labs, Medications, Previous Orders, Radiology, Other (Consultations) Changes from previous H/P or p: No Changes General: Per HPI Objective Vitals Vital Signs Date Time Temp Pulse Resp B/P (MAP) Pulse Ox O2 Delivery O2 Flow Rate FiO2 06/30/24 10:00 97 Mechanical Ventilator 06/30/24 10:00 18 35 35 06/30/24 10:00 56 06/30/24 09:45 98.2 96/55 (69) 208.8 Intake/Output Intake and Output 06/30/24 07:00 Intake Total 3490.824 ml Output Total 2300 ml Balance 1190.824 ml Intake Oral 160 ml IV Total 3330.824 ml Output Urine Total 2300 ml General Appearance: moderate distress, Other (Intubated and sedated) HEENT: Atraumatic Lungs: Clear to auscultation, Normal air movement, Other (Mechanical ventilation) Cardiovascular: Normal S1, Normal S2, Other (Bradycardia) Abdomen: Normal bowel sounds, Soft Genitourinary: Other (Bloom's catheter) Extremities: No edema, Normal pulses Neuro: Other (Unable to assess) Skin: Dry, Intact Psych/Mental Status: Other (Unable to assess) Medications Current Medications Medications Dose Ordered Sig/Milvia Route Start Time Stop Time Status Last Admin Dose Admin Ondansetron HCl 4 mg Q4HP PRN IV 06/20/24 07:15 Nitroglycerin 0.4 mg Q5MINP PRN SL 06/20/24 07:15 Albuterol 2.5 mg Q4HR NEB 06/20/24 10:00 06/30/24 07:02 2.5 MG Ipratropium [place] 0.5 mg Q4HPRN PRN [facility] 06/20/24 07:30 Cancel Budesonide 0.5 mg BID NEB 06/20/24 10:00 06/30/24 07:03 0.5 MG Midazolam HCl 50 ml @ 1 mls/hr Q24H IV 06/20/24 07:45 06/30/24 07:56 4 MLS/HR Albuterol 2.5 mg Q4HPRN PRN NEB 06/20/24 08:00 Cancel Ipratropium [place] 0.5 mg Q4HR NEB 06/20/24 10:00 06/30/24 07:02 0.5 MG Ceftriaxone Sodium 50 ml @ 100 mls/hr DAILY@09 IV 06/20/24 09:00 06/30/24 07:53 100 MLS/HR Enoxaparin Sodium 30 mg DAILY SC 06/20/24 10:00 UNV Fentanyl Citrate 250 ml @ 2.5 mls/hr Q24H IV 06/20/24 08:30 06/30/24 06:29 22.5 MLS/HR Enoxaparin Sodium 40 mg DAILY SC 06/20/24 10:00 06/30/24 07:54 40 MG Norepinephrine Bitartrate 250 ml @ 3.75 mls/hr Q24H IV 06/20/24 09:01 06/30/24 01:30 3.75 MLS/HR Propofol 100 ml @ 2.454 mls/ hr Q24H IV 06/22/24 15:45 06/30/24 07:56 17.178 MLS/HR Sodium Chloride 1,000 ml @ 100 mls/hr Q10H IV 06/23/24 09:30 06/30/24 07:55 100 MLS/HR Pantoprazole Sodium 40 mg DAILY IV 06/26/24 10:00 06/30/24 07:53 40 MG Enteral Nutritional Formula 1,000 ml 40ML/HR GT 06/26/24 14:00 06/27/24 18:09 1,000 ML Quetiapine Fumarate 100 mg BID PO 06/26/24 22:00 06/30/24 07:53 100 MG Methylprednisolone Sodium Succinate 40 mg Q12H IV 06/29/24 18:00 06/30/24 06:27 40 MG Nicardipine HCl 250 ml @ 50 mls/hr Q5H IV 06/29/24 16:45 Hydralazine HCl 10 mg Q4HP PRN IV 06/29/24 16:45 Morphine Sulfate 2 mg Q4HPRN PRN IV 06/29/24 17:00 Dexmedetomidine HCl 400 mcg/ Dextrose 100 ml @ 4.09 mls/hr Q24H IV 06/29/24 17:15 06/29/24 17:15 4.09 MLS/HR Laboratory Results Laboratory Tests 06/30/24 03:10 Chemistry Test 06/30/24 03:10 Calcium Level 8.7 mg/dL (8.7-10.4) Urinalysis Test 06/20/24 11:23 06/23/24 10:15 Urine Hyaline Casts Few /lpf (0 - 2) Urine Color Light-yellow (Yellow) Urine Clarity Clear (Clear) Urine pH 6.0 (5.0-9.0) Urine Specific [place] 1.013 (1.001-1.035) Urine Protein Negative (Negative) Urine Ketones Negative (Negative) Urine Blood 2+ /uL (Negative) H Urine Nitrite Negative (Negative) Urine Bilirubin Negative (Negative) Urine Urobilinogen Normal mg/dL (Negative) Urine Leukocyte Esterase Negative /uL (Negative) Urine RBC 115 /hpf (0 - 3) Urine Microscopic WBC 2 /HPF (0-3) Urine Squamous Epithelial Cells None seen /hpf (<5) Urine Bacteria None seen /hpf (None Seen) Urine Mucus Few (None Seen) Urine Creatinine 69.90 mg/dL (30.0-125.0) Urine Protein/Creatinine Ratio 0.21 Urine Sodium 58 mmol/L (40-220) Urine Glucose Normal mg/dL (Normal) Urine Total Protein 14.8 mg/dL (1-14) H Blood Gas Results Test 06/29/24 19:13 06/30/24 07:44 Arterial Blood pH 7.395 (7.350-7.450) 7.427 (7.350-7.450) FiO2 % 100.0 45.0 Microbiology Microbiology Date/Time Source Procedure Growth Status 06/23/24 01:35 Urine - [place] Urine Culture - Final Complete 06/22/24 08:30 Nose MRSA Screen - Final Complete 06/20/24 08:23 Sputum Gram Stain - Final Complete 06/20/24 08:23 Sputum Respiratory Culture - Final Complete 06/20/24 05:19 Blood Blood Culture - Final NO GROWTH AFTER 5 DAYS OF INCUBATION. Complete Labs and/or images reviewed: Labs reviewed by me, Image(s) reviewed by me Assessment/Plan Assessment/Plan Impression: -acute on chronic hypoxic respiratory failure, now on mechanical ventilation -NSTEMI type 2 -rule out community-acquired pneumonia, Gram-positive/Gram-negative etiology -COPD with exacerbation -asthma -nicotine dependence -primary hypertension -atrial fibrillation Plan: Events: Wean per professional programmer analyst. Patient is hypothermic overnight. Improved. -discussed with professional programmer analyst if he was going to weaned the patient today. If not restart tube feedings. -continue current ventilator settings -taper steroids -weaned current sedation -continue antibiotic therapy -PUD, DVT prophylaxis -repeat labs in a.m. Critical care time spent with patient discussing and formulating plan of care: 40 minutes. This does not include time spent performing procedures. This medical document was created using an electronic medical record system with [employer] dictation system. Although this document has been carefully reviewed, there may still be some phonetic and typographical errors. These areas are purely typographical due to imperfections of the software programs, and do not reflect any compromise in the patient's medical care. Plan discussed with: Patient, Other (RN) My Orders Orders - ESSENCE FONG NP Procedure Category Date Status Time Basic Metabolic Panel LAB 07/01/24 Verified 05:00 Basic Metabolic Panel LAB 07/02/24 Verified 05:00 Basic Metabolic Panel LAB 07/03/24 Verified 05:00 Chest Portable XY 07/01/24 Transmitted 05:00 Chest Portable XY 07/02/24 Transmitted 05:00 Chest Portable XY 07/03/24 Transmitted 05:00 Abg W/ Co-Ox RT 07/01/24 Transmitted 05:00 Abg W/ Co-Ox RT 07/02/24 Transmitted 05:00 Abg W/ Co-Ox RT 07/03/24 Transmitted 05:00 Date of Service: Jun 30, 2024 Billing Provider: ESSENCE FONG NP Common Visit Codes: [id number] CARE 30-74 MIN ESSENCE FONG NP Jun 30, 2024 10:18
--- NOTE | 2024-06-30 23:18 | DVHPN2 ---
Progress Note - Dictate Date Seen: Jun 30, 2024 Medical Necessity Reason Pt with a Central, PICC or Fol: Yes The following are medically ne: Mena Catheter Reason for mena catheter: Strict I&O Subjective Patient seen and examined at bedside. Sedated, intubated on mechanical ventilator. Overnight events reviewed. vital signs Vital Sign Date Time Temp Pulse Resp B/P (MAP) Pulse Ox O2 Delivery O2 Flow Rate FiO2 06/30/24 22:45 99.0 54 18 96/51 (66) 96 210.2 06/30/24 22:33 30 06/30/24 22:00 Mechanical Ventilator+ Total Intake and Output 06/29/24 06/29/24 06/30/24 15:00 23:00 07:00 Intake Total 1128.148 ml 1142.430 ml 1220.246 ml Output Total 1650 ml 650 ml Balance 1128.148 ml -507.570 ml 570.246 ml medications Current Medications Medications Dose Ordered Sig/Milvia Route Start Time Stop Time Status Last Admin Dose Admin Ondansetron HCl 4 mg Q4HP PRN IV 06/20/24 07:15 Nitroglycerin 0.4 mg Q5MINP PRN SL 06/20/24 07:15 Albuterol 2.5 mg Q4HR [facility] 06/20/24 10:00 06/30/24 22:33 2.5 MG Ipratropium [place] 0.5 mg Q4HPRN PRN [facility] 06/20/24 07:30 Cancel Budesonide 0.5 mg BID [facility] 06/20/24 10:00 06/30/24 18:45 0.5 MG Midazolam HCl 50 ml @ 1 mls/hr Q24H IV 06/20/24 07:45 06/30/24 20:12 4 MLS/HR Albuterol 2.5 mg Q4HPRN PRN [facility] 06/20/24 08:00 Cancel Ipratropium [place] 0.5 mg Q4HR [facility] 06/20/24 10:00 06/30/24 22:33 0.5 MG Ceftriaxone Sodium 50 ml @ 100 mls/hr DAILY@09 IV 06/20/24 09:00 06/30/24 07:53 100 MLS/HR Enoxaparin Sodium 30 mg DAILY SC 06/20/24 10:00 UNV Fentanyl Citrate 250 ml @ 2.5 mls/hr Q24H IV 06/20/24 08:30 06/30/24 17:01 22.5 MLS/HR Enoxaparin Sodium 40 mg DAILY SC 06/20/24 10:00 06/30/24 07:54 40 MG Norepinephrine Bitartrate 250 ml @ 3.75 mls/hr Q24H IV 06/20/24 09:01 06/30/24 01:30 3.75 MLS/HR Propofol 100 ml @ 2.454 mls/ hr Q24H IV 06/22/24 15:45 06/30/24 18:21 17.178 MLS/HR Sodium Chloride 1,000 ml @ 100 mls/hr Q10H IV 06/23/24 09:30 06/30/24 16:57 100 MLS/HR Pantoprazole Sodium 40 mg DAILY IV 06/26/24 10:00 06/30/24 07:53 40 MG Enteral Nutritional Formula 1,000 ml 40ML/HR GT 06/26/24 14:00 06/27/24 18:09 1,000 ML Quetiapine Fumarate 100 mg BID PO 06/26/24 22:00 06/30/24 22:06 100 MG Methylprednisolone Sodium Succinate 40 mg Q12H IV 06/29/24 18:00 06/30/24 16:57 40 MG Nicardipine HCl 250 ml @ 50 mls/hr Q5H IV 06/29/24 16:45 Hydralazine HCl 10 mg Q4HP PRN IV 06/29/24 16:45 Morphine Sulfate 2 mg Q4HPRN PRN IV 06/29/24 17:00 Dexmedetomidine HCl 400 mcg/ Dextrose 100 ml @ 4.09 mls/hr Q24H IV 06/29/24 17:15 06/29/24 17:15 4.09 MLS/HR objective Gen.: Patient lying in bed in medical ICU. Sedated, intubated on mechanical ventilator. Head: Normocephalic, atraumatic. Eyes: PERRLA. Ears: Normal external anatomy. Throat: Endotracheal tube and orogastric tube in place. Neck: Supple, trachea midline. Chest: Transmitted breath sounds bilaterally. Decreased air entry bilaterally. No wheezing. Bibasilar crackles. Cardiovascular: Positive S1, positive S2. Regular rate and rhythm. Abdomen: Positive bowel sounds in all 4 quadrants. Soft, nontender, nondistended. : Mena in place. Normal external genitalia. Rectal: Deferred. Skin: Warm, dry. Intact. Extremities: 2+ radial pulses bilaterally. No lower extremity edema. Neuro: Sedated. laboratory and microbiology Laboratory Tests 06/30/24 03:10 Test 06/30/24 03:10 Range/Units Serum Glucose 102 74-106 mg/dL Assessment/Plan Impression: Acute hypoxic respiratory failure On mechanical ventilator COPD exacerbation Nicotine dependence Elevated troponin Atrial fibrillation Hypertension Events: Patient is s/p re-intubation yesterday Remains on vent support On AC mode; RR 18, VT 550, PEEP 5, FiO2 30% Sedated on Versed, Propofol, Fentanyl Seroquel 100 mg via NGT q.12 hours Continue bronchodilators Continue IV steroids Continue IV antibiotics IV fluids at 100 mL/hr. Off Levophed this AM, hemodynamically stable. Tube feeds for nutritional support SBT/ERIS Labs and imaging reviewed. Rest of plan as noted below. Plan: s/p intubation on mechanical ventilator. CXR image and report reviewed. Devices in place. Pulmonary congestion. No pneumothorax. No pleural effusion. ABG reviewed, compensated. Labs reviewed, within normal limits. On AC mode; RR 18, VT 550, PEEP 5, FiO2 30% Titrate FIO2 to keep O2 saturation above 90%. VAP bundle. Daily ABG and CXR while intubated Sedate for ventilator synchrony Continue bronchodilators. IV steroids Continue antibiotics. Start pressors if necessary to maintain a mean arterial blood pressure greater than 65 mmHg. Monitor renal function Monitor electrolytes. Supplement as necessary. Monitor ins and outs. GI prophylaxis. DVT prophylaxis. Prognosis: Poor given patient's multiple co-morbidities. Condition: Critical Rest of plan per hospitalist and other consultants. A total of 35 minutes of critical care time was spent reviewing the patient record, examining the patient, making a diagnostic and therapeutic plan, discussing this plan with the medical personnel, following up on diagnostic studies and following the patient for clinical stability excluding any and all procedures. At least 50% of this time was spent in direct, [id number] contact. Thank you, JENNIFER Espitia, for allowing me to participate in this patient's care. Further recommendations will depend on the patient's clinical course. Please do not hesitate to contact me if you have any questions or concerns. This medical document was created using an electronic medical record system with [employer] dictation system. Although these documentations are being carefully reviewed, there may still be some phonetic and typographical changes. The errors are purely typographical, due to imperfection on the software program, and do not reflect any compromise in the patient's medical care. Dietary Evaluation Review Comments: 1. If EN/GI accessible, Glucerna 45ml/hr, 65g pro 1296 kcal, satisfies pt's needs for Pro 80 %, Kcal 80%, in additon Propofol provides 110 kcal/100ml fat kcal Thus pt will have 1406 total kcal, supporting pt 's energy needs is increasedd to 86%. 2. If EN/GI not a option, NPO > 7 days, offer TPN per pharmacy 3. If pt off vent, passess speech eval, offer 2 g Na CCHO-60 low fat Low cholesterol diet. Expected Outcomes/Goals: gradually healed wounds, graudal weight loss, controlled blood glucose. Plan discussed with: Other (ADELINE Pérez) Critical Care Time(min): 35 ILYA GARCES MD Jun 30, 2024 23:18
[2024-07-01] VITALS (107 sets, daily range): BP systolic 92–143; BP diastolic 43–89; PULSE 46–102; RESP 11–18; TEMP 97.3–99.7; O2SAT 92–100
[2024-07-01 04:15] LABS: Sodium 142 mmol/L (136-145)
[2024-07-01 04:16] LABS: Anion Gap 6 (5-15); Carbon Dioxide 26 mmol/L (20-31)
[2024-07-01 04:21] LABS: BUN/Creatinine Ratio 34.8 (10.0-20.0); Blood Urea Nitrogen 16 mg/dL (9-23); Glucose 99 mg/dL (74-106)
[2024-07-01 04:24] LABS: Calcium 8.7 mg/dL (8.7-10.4); Chloride 110 mmol/L (98-107)
--- NOTE | 2024-07-01 05:50 | DVH ---
EXAM: XY CHEST PORTABLE Indication: pna Technique: Single frontal view of the chest was obtained Comparison: XY CHEST PORTABLE on DOS: 06/30/24, XY CHEST PORTABLE on DOS: 06/29/24, XY CHEST PORTABLE o n DOS: 06/28/24, XY CHEST XRAY 1 VIEW on DOS: 06/27/24, XY CHEST XRAY 1 VIEW on DOS: 06/26/24 FINDINGS: Lines and Tubes: Endotracheal tube projects 5 cm above the level ashley. Enteric tube courses below t he diaphragm. Left internal jugular central catheter tip projects over the superior vena cava. Lungs: Mild pulmonary vascular congestion. Pleura: No effusion. No pneumothorax. Cardiomediastinal contours: Unremarkable Bones: No acute osseous abnormality. IMPRESSION: No significant change compared to prior exam.
[2024-07-01 06:58] LABS: Basophils # (auto) 0 10 ^3/uL (0-0.2); Basophils % (auto) 0.1 % (0.0-2.0); Eosinophils # (auto) 0 10 ^3/uL (0-0.8); Hematocrit 29.7 % (41.0-53.0); Hemoglobin 9.8 g/dL (13.5-17.5); Lymphocytes # (auto) 0.5 10 ^3/uL (0.4-5.4); Lymphocytes % (auto) 6.8 % (10.0-50.0); Mean Corpuscular Volume 87.9 fL (80.0-100.0); Monocytes # (auto) 0.8 10 ^3/uL (0-1.3); Monocytes % (auto) 11.2 % (0.0-12.0); Neutrophils # (auto) 5.9 10 ^3/uL (1.6-8.6); Neutrophils % (auto) 81.9 % (37.0-80.0); Nucleated Red Blood Cells % 0.1 %; Platelet Count (auto) 350 10^3/uL (140-450); Red Blood Cells 3.37 10^6/uL (4.5-5.90); White Blood Cell 7.3 10^3/uL (4.4-10.8)
--- NOTE | 2024-07-01 07:04 | DVHPN2 ---
Subjective Patient chemically sedated Reviewed: Care Plan, H&P, Labs, Medications, Previous Orders, Radiology, Other (Consultations) Changes from previous H/P or p: No Changes General: Per HPI Objective Vitals Vital Signs Date Time Temp Pulse Resp B/P (MAP) Pulse Ox O2 Delivery O2 Flow Rate FiO2 07/01/24 06:45 97.7 48 18 110/62 (78) 97 207.9 07/01/24 06:00 30 07/01/24 06:00 Mechanical Ventilator+ Intake/Output Intake and Output 07/01/24 06:59 Intake Total 3622.136 ml Output Total 2200 ml Balance 1422.136 ml Intake Oral 120 ml IV Total 3502.136 ml Tube Feeding 0 ml Output Urine Total 2200 ml General Appearance: moderate distress, Other (Intubated and sedated) HEENT: Atraumatic Lungs: Clear to auscultation, Normal air movement, Other (Mechanical ventilation) Cardiovascular: Normal S1, Normal S2, Other (Bradycardia) Abdomen: Normal bowel sounds, Soft Genitourinary: Other (Bloom's catheter) Extremities: No edema, Normal pulses Neuro: Other (Unable to assess) Skin: Dry, Intact Psych/Mental Status: Other (Unable to assess) Medications Current Medications Medications Dose Ordered Sig/Milvia Route Start Time Stop Time Status Last Admin Dose Admin Ondansetron HCl 4 mg Q4HP PRN IV 06/20/24 07:15 Nitroglycerin 0.4 mg Q5MINP PRN SL 06/20/24 07:15 Albuterol 2.5 mg Q4HR NEB 06/20/24 10:00 07/01/24 07:01 2.5 MG Ipratropium [place] 0.5 mg Q4HPRN PRN [facility] 06/20/24 07:30 Cancel Budesonide 0.5 mg BID NEB 06/20/24 10:00 07/01/24 07:01 0.5 MG Midazolam HCl 50 ml @ 1 mls/hr Q24H IV 06/20/24 07:45 06/30/24 20:12 4 MLS/HR Albuterol 2.5 mg Q4HPRN PRN NEB 06/20/24 08:00 Cancel Ipratropium [place] 0.5 mg Q4HR [facility] 06/20/24 10:00 07/01/24 06:00 0.5 MG Ceftriaxone Sodium 50 ml @ 100 mls/hr DAILY@09 IV 06/20/24 09:00 06/30/24 07:53 100 MLS/HR Enoxaparin Sodium 30 mg DAILY SC 06/20/24 10:00 UNV Fentanyl Citrate 250 ml @ 2.5 mls/hr Q24H IV 06/20/24 08:30 06/30/24 17:01 22.5 MLS/HR Enoxaparin Sodium 40 mg DAILY SC 06/20/24 10:00 06/30/24 07:54 40 MG Norepinephrine Bitartrate 250 ml @ 3.75 mls/hr Q24H IV 06/20/24 09:01 06/30/24 01:30 3.75 MLS/HR Propofol 100 ml @ 2.454 mls/ hr Q24H IV 06/22/24 15:45 07/01/24 01:05 17.178 MLS/HR Sodium Chloride 1,000 ml @ 100 mls/hr Q10H IV 06/23/24 09:30 07/01/24 03:13 100 MLS/HR Pantoprazole Sodium 40 mg DAILY IV 06/26/24 10:00 06/30/24 07:53 40 MG Enteral Nutritional Formula 1,000 ml 40ML/HR GT 06/26/24 14:00 06/27/24 18:09 1,000 ML Quetiapine Fumarate 100 mg BID PO 06/26/24 22:00 06/30/24 22:06 100 MG Methylprednisolone Sodium Succinate 40 mg Q12H IV 06/29/24 18:00 07/01/24 05:48 40 MG Nicardipine HCl 250 ml @ 50 mls/hr Q5H IV 06/29/24 16:45 Hydralazine HCl 10 mg Q4HP PRN IV 06/29/24 16:45 Morphine Sulfate 2 mg Q4HPRN PRN IV 06/29/24 17:00 Dexmedetomidine HCl 400 mcg/ Dextrose 100 ml @ 4.09 mls/hr Q24H IV 06/29/24 17:15 06/29/24 17:15 4.09 MLS/HR Laboratory Results Laboratory Tests 07/01/24 03:07 07/01/24 06:26 Chemistry Test 07/01/24 03:07 Calcium Level 8.7 mg/dL (8.7-10.4) Urinalysis Test 06/20/24 11:23 06/23/24 10:15 Urine Hyaline Casts Few /lpf (0 - 2) Urine Color Light-yellow (Yellow) Urine Clarity Clear (Clear) Urine pH 6.0 (5.0-9.0) Urine Specific [place] 1.013 (1.001-1.035) Urine Protein Negative (Negative) Urine Ketones Negative (Negative) Urine Blood 2+ /uL (Negative) H Urine Nitrite Negative (Negative) Urine Bilirubin Negative (Negative) Urine Urobilinogen Normal mg/dL (Negative) Urine Leukocyte Esterase Negative /uL (Negative) Urine RBC 115 /hpf (0 - 3) Urine Microscopic WBC 2 /HPF (0-3) Urine Squamous Epithelial Cells None seen /hpf (<5) Urine Bacteria None seen /hpf (None Seen) Urine Mucus Few (None Seen) Urine Creatinine 69.90 mg/dL (30.0-125.0) Urine Protein/Creatinine Ratio 0.21 Urine Sodium 58 mmol/L (40-220) Urine Glucose Normal mg/dL (Normal) Urine Total Protein 14.8 mg/dL (1-14) H Blood Gas Results Test 06/30/24 07:44 Arterial Blood pH 7.427 (7.350-7.450) FiO2 % 45.0 Microbiology Microbiology Date/Time Source Procedure Growth Status 06/23/24 01:35 Urine - [place] Urine Culture - Final Complete 06/22/24 08:30 Nose MRSA Screen - Final Complete 06/20/24 08:23 Sputum Gram Stain - Final Complete 06/20/24 08:23 Sputum Respiratory Culture - Final Complete 06/20/24 05:19 Blood Blood Culture - Final NO GROWTH AFTER 5 DAYS OF INCUBATION. Complete Labs and/or images reviewed: Labs reviewed by me, Image(s) reviewed by me Assessment/Plan Assessment/Plan Impression: -acute on chronic hypoxic respiratory failure, now on mechanical ventilation -NSTEMI type 2 -rule out community-acquired pneumonia, Gram-positive/Gram-negative etiology -COPD with exacerbation -asthma -nicotine dependence -primary hypertension -atrial fibrillation -ventilator dependence with failed extubation. Plan: Events: Patient extubated, reintubated, with persistent failed following spontaneous breathing trials. Will discuss with family LTAC transfer with possible tracheostomy. -restart tube feedings -continue current ventilator settings -taper steroids -weaned current sedation -continue antibiotic therapy -PUD, DVT prophylaxis -repeat labs in a.m. Critical care time spent with patient discussing and formulating plan of care: 40 minutes. This does not include time spent performing procedures. This medical document was created using an electronic medical record system with [employer] system. Although this document has been carefully reviewed, there may still be some phonetic and typographical errors. These areas are purely typographical due to imperfections of the software programs, and do not reflect any compromise in the patient's medical care. Plan discussed with: Patient, Other (RN) My Orders Orders - ESSENCE FONG NP Procedure Category Date Status Time Basic Metabolic Panel LAB 07/02/24 Verified 05:00 Basic Metabolic Panel LAB 07/03/24 Verified 05:00 Chest Portable XY 07/01/24 Resulted 05:00 Chest Portable XY 07/02/24 Logged 05:00 Chest Portable XY 07/03/24 Logged 05:00 Abg W/ Co-Ox RT 07/01/24 Logged 05:00 Abg W/ Co-Ox RT 07/02/24 Logged 05:00 Abg W/ Co-Ox RT 07/03/24 Logged 05:00 Date of Service: Jul 01, 2024 Billing Provider: ESSENCE FONG NP Common Visit Codes: [id number] CARE 30-74 MIN ESSENCE FONG NP Jul 01, 2024 07:04
[2024-07-01 07:43] LABS: Base Excess 0.3 mmol/L (-2.0-3.0)
--- NOTE | 2024-07-01 10:14 | ECG ---
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
--- NOTE | 2024-07-01 10:14 | ECG ---
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
--- NOTE | 2024-07-01 23:37 | DVHPN2 ---
Progress Note - Dictate Date Seen: Jul 01, 2024 Medical Necessity Reason Pt with a Central, PICC or Fol: Yes The following are medically ne: Mena Catheter Reason for mena catheter: Strict I&O Subjective Patient seen and examined at bedside. Sedated, intubated on mechanical ventilator. Overnight events reviewed. vital signs Vital Sign Date Time Temp Pulse Resp B/P (MAP) Pulse Ox O2 Delivery O2 Flow Rate FiO2 07/01/24 22:45 98.1 78 18 112/69 (83) 95 208.6 07/01/24 22:10 30 07/01/24 20:00 Mechanical Ventilator+ Total Intake and Output 06/30/24 06/30/24 07/01/24 15:00 23:00 07:00 Intake Total 1202 ml 1210.390 ml 1209.424 ml Output Total 1100 ml 1100 ml Balance 1202 ml 110.390 ml 109.424 ml medications Current Medications Medications Dose Ordered Sig/Milvia Route Start Time Stop Time Status Last Admin Dose Admin Ondansetron HCl 4 mg Q4HP PRN IV 06/20/24 07:15 Nitroglycerin 0.4 mg Q5MINP PRN SL 06/20/24 07:15 Albuterol 2.5 mg Q4HR NEB 06/20/24 10:00 07/01/24 22:10 2.5 MG Ipratropium [place] 0.5 mg Q4HPRN PRN [facility] 06/20/24 07:30 Cancel Budesonide 0.5 mg BID NEB 06/20/24 10:00 07/01/24 22:12 0.5 MG Midazolam HCl 50 ml @ 1 mls/hr Q24H IV 06/20/24 07:45 07/01/24 17:04 5 MLS/HR Albuterol 2.5 mg Q4HPRN PRN NEB 06/20/24 08:00 Cancel Ipratropium [place] 0.5 mg Q4HR [facility] 06/20/24 10:00 07/01/24 22:10 0.5 MG Ceftriaxone Sodium 50 ml @ 100 mls/hr DAILY@09 IV 06/20/24 09:00 07/01/24 08:33 100 MLS/HR Enoxaparin Sodium 30 mg DAILY SC 06/20/24 10:00 UNV Fentanyl Citrate 250 ml @ 2.5 mls/hr Q24H IV 06/20/24 08:30 07/01/24 21:17 27.5 MLS/HR Enoxaparin Sodium 40 mg DAILY SC 06/20/24 10:00 07/01/24 09:59 40 MG Norepinephrine Bitartrate 250 ml @ 3.75 mls/hr Q24H IV 06/20/24 09:01 06/30/24 01:30 3.75 MLS/HR Propofol 100 ml @ 2.454 mls/ hr Q24H IV 06/22/24 15:45 07/01/24 08:30 9.816 MLS/HR Sodium Chloride 1,000 ml @ 100 mls/hr Q10H IV 06/23/24 09:30 07/01/24 23:34 100 MLS/HR Pantoprazole Sodium 40 mg DAILY IV 06/26/24 10:00 07/01/24 09:59 40 MG Enteral Nutritional Formula 1,000 ml 40ML/HR GT 06/26/24 14:00 06/27/24 18:09 1,000 ML Quetiapine Fumarate 100 mg BID PO 06/26/24 22:00 07/01/24 21:30 100 MG Methylprednisolone Sodium Succinate 40 mg Q12H IV 06/29/24 18:00 07/01/24 17:25 40 MG Nicardipine HCl 250 ml @ 50 mls/hr Q5H IV 06/29/24 16:45 Hydralazine HCl 10 mg Q4HP PRN IV 06/29/24 16:45 Morphine Sulfate 2 mg Q4HPRN PRN IV 06/29/24 17:00 Dexmedetomidine HCl 400 mcg/ Dextrose 100 ml @ 4.09 mls/hr Q24H IV 06/29/24 17:15 06/29/24 17:15 4.09 MLS/HR objective Gen.: Patient lying in bed in medical ICU. Sedated, intubated on mechanical ventilator. Head: Normocephalic, atraumatic. Eyes: PERRLA. Ears: Normal external anatomy. Throat: Endotracheal tube and orogastric tube in place. Neck: Supple, trachea midline. Chest: Transmitted breath sounds bilaterally. Decreased air entry bilaterally. No wheezing. Bibasilar crackles. Cardiovascular: Positive S1, positive S2. Regular rate and rhythm. Abdomen: Positive bowel sounds in all 4 quadrants. Soft, nontender, nondistended. : Mena in place. Normal external genitalia. Rectal: Deferred. Skin: Warm, dry. Intact. Extremities: 2+ radial pulses bilaterally. No lower extremity edema. Neuro: Sedated. laboratory and microbiology Laboratory Tests 07/01/24 06:26 07/01/24 03:07 Test 07/01/24 03:07 Range/Units Serum Glucose 99 74-106 mg/dL Assessment/Plan Impression: Acute hypoxic respiratory failure On mechanical ventilator COPD exacerbation Nicotine dependence Elevated troponin Atrial fibrillation Hypertension Events: Remains on vent support On AC mode; RR 18, VT 550, PEEP 5, FiO2 30% Sedated on Versed, Fentanyl Seroquel 100 mg via NGT q.12 hours Continue bronchodilators Continue IV steroids Continue IV antibiotics IV fluids with 1/2 NS at 100 mL/hr. Off Levophed, hemodynamically stable. Tube feeds for nutritional support SBT/ERIS Awaiting family decision on goals of care Recommend LTAC vs. compassionate extubation vs. Trach/PEG. Labs and imaging reviewed. Rest of plan as noted below. Plan: s/p intubation on mechanical ventilator. CXR image and report reviewed. Devices in place. Pulmonary congestion. No pneumothorax. No pleural effusion. ABG reviewed, compensated. Labs reviewed, within normal limits. On AC mode; RR 18, VT 550, PEEP 5, FiO2 30% Titrate FIO2 to keep O2 saturation above 90%. VAP bundle. Daily ABG and CXR while intubated Sedate for ventilator synchrony Continue bronchodilators. IV steroids Continue antibiotics. Start pressors if necessary to maintain a mean arterial blood pressure greater than 65 mmHg. Monitor renal function Monitor electrolytes. Supplement as necessary. Monitor ins and outs. GI prophylaxis. DVT prophylaxis. Prognosis: Poor given patient's multiple co-morbidities. Condition: Critical Rest of plan per hospitalist and other consultants. A total of 35 minutes of critical care time was spent reviewing the patient record, examining the patient, making a diagnostic and therapeutic plan, discussing this plan with the medical personnel, following up on diagnostic studies and following the patient for clinical stability excluding any and all procedures. At least 50% of this time was spent in direct, [id number] contact. Thank you, JENNIFER Espitia, for allowing me to participate in this patient's care. Further recommendations will depend on the patient's clinical course. Please do not hesitate to contact me if you have any questions or concerns. This medical document was created using an electronic medical record system with [employer] computerized dictation system. Although these documentations are being carefully reviewed, there may still be some phonetic and typographical changes. The errors are purely typographical, due to imperfection on the software program, and do not reflect any compromise in the patient's medical care. Dietary Evaluation Review Comments: 1. If EN/GI accessible, Glucerna 45ml/hr, 65g pro 1296 kcal, satisfies pt's needs for Pro 80 %, Kcal 80%, in additon Propofol provides 110 kcal/100ml fat kcal Thus pt will have 1406 total kcal, supporting pt 's energy needs is increasedd to 86%. 2. If EN/GI not a option, NPO > 7 days, offer TPN per pharmacy 3. If pt off vent, passess speech eval, offer 2 g Na CCHO-60 low fat Low cholesterol diet. Expected Outcomes/Goals: gradually healed wounds, graudal weight loss, controlled blood glucose. Plan discussed with: Other (ADELINE Gloria) Critical Care Time(min): 35 ILYA GARCES MD Jul 01, 2024 23:36
[2024-07-02] VITALS (108 sets, daily range): BP systolic 90–148; BP diastolic 47–95; PULSE 48–88; RESP 11–25; TEMP 96.8–99.1; O2SAT 94–100
[2024-07-02 03:43] LABS: Basophils # (auto) 0 10 ^3/uL (0-0.2); Basophils % (auto) 0.1 % (0.0-2.0); Eosinophils # (auto) 0 10 ^3/uL (0-0.8); Hematocrit 30.8 % (41.0-53.0); Lymphocytes # (auto) 0.4 10 ^3/uL (0.4-5.4); Lymphocytes % (auto) 5.4 % (10.0-50.0); Mean Corpuscular Hemoglobin 28.6 pg (28.0-32.0); Mean Corpuscular Hgb Conc. 32.5 g/dL (32.0-36.0); Monocytes # (auto) 0.6 10 ^3/uL (0-1.3); Monocytes % (auto) 7.4 % (0.0-12.0); Neutrophils # (auto) 6.7 10 ^3/uL (1.6-8.6); Neutrophils % (auto) 87.1 % (37.0-80.0); Nucleated Red Blood Cells % 0.1 %; Platelet Count (auto) 353 10^3/uL (140-450); Red Cell Distribution Width 16.4 % (11.8-14.3); White Blood Cell 7.7 10^3/uL (4.4-10.8)
[2024-07-02 03:57] LABS: Sodium 141 mmol/L (136-145)
[2024-07-02 03:58] LABS: Anion Gap 6 (5-15); Calcium 8.8 mg/dL (8.7-10.4); Carbon Dioxide 26 mmol/L (20-31)
[2024-07-02 04:03] LABS: BUN/Creatinine Ratio 47.5 (10.0-20.0); Blood Urea Nitrogen 19 mg/dL (9-23); Glucose 93 mg/dL (74-106)
[2024-07-02 04:20] LABS: Chloride 109 mmol/L (98-107)
--- NOTE | 2024-07-02 06:18 | DVH ---
EXAM: XY CHEST PORTABLE Indication: pna Technique: Single frontal view of the chest was obtained Comparison: XY CHEST PORTABLE on DOS: 07/01/24, XY CHEST PORTABLE on DOS: 06/30/24, XY CHEST PORTABLE on DOS: 06/29/24, XY CHEST PORTABLE on DOS: 06/28/24, XY CHEST XRAY 1 VIEW on DOS: 06/27/24, XY CHEST PORT ABLE on DOS: 07/01/24 FINDINGS: Lines and Tubes: Endotracheal tube projects 5 cm above the level ashley. Enteric tube courses below t he diaphragm. Left internal jugular central catheter tip projects over the superior vena cava. Lungs: Mild pulmonary vascular congestion. Pleura: No effusion. No pneumothorax. Cardiomediastinal contours: Unremarkable Bones: No acute osseous abnormality. IMPRESSION: No significant change compared to prior exam.
[2024-07-02 07:36] LABS: Base Excess -2.8 mmol/L (-2.0-3.0)
--- NOTE | 2024-07-02 09:27 | DVHPN2 ---
Subjective Patient chemically sedated Reviewed: Care Plan, H&P, Labs, Medications, Previous Orders, Radiology, Other (Consultations) Changes from previous H/P or p: No Changes General: Per HPI Objective Vitals Vital Signs Date Time Temp Pulse Resp B/P (MAP) Pulse Ox O2 Delivery O2 Flow Rate FiO2 07/02/24 06:45 98.8 55 18 101/60 (74) 96 209.8 07/02/24 06:31 30 07/01/24 20:00 Mechanical Ventilator+ Intake/Output Intake and Output 07/02/24 07:00 Intake Total 3267.258 ml Output Total 2000 ml Balance 1267.258 ml Intake Oral 45 ml IV Total 3147.258 ml Tube Feeding 75 ml Output Urine Total 2000 ml General Appearance: moderate distress, Other (Intubated and sedated) HEENT: Atraumatic Lungs: Clear to auscultation, Normal air movement, Other (Mechanical ventilation) Cardiovascular: Normal S1, Normal S2, Other (Bradycardia) Abdomen: Normal bowel sounds, Soft Genitourinary: Other (Bloom's catheter) Extremities: No edema, Normal pulses Neuro: Other (Unable to assess) Skin: Dry, Intact Psych/Mental Status: Other (Unable to assess) Medications Current Medications Medications Dose Ordered Sig/Milvia Route Start Time Stop Time Status Last Admin Dose Admin Ondansetron HCl 4 mg Q4HP PRN IV 06/20/24 07:15 Nitroglycerin 0.4 mg Q5MINP PRN SL 06/20/24 07:15 Albuterol 2.5 mg Q4HR [facility] 06/20/24 10:00 07/02/24 06:31 2.5 MG Ipratropium [place] 0.5 mg Q4HPRN PRN [facility] 06/20/24 07:30 Cancel Budesonide 0.5 mg BID [facility] 06/20/24 10:00 07/02/24 06:31 0.5 MG Midazolam HCl 50 ml @ 1 mls/hr Q24H IV 06/20/24 07:45 07/02/24 02:01 6 MLS/HR Albuterol 2.5 mg Q4HPRN PRN [facility] 06/20/24 08:00 Cancel Ipratropium [place] 0.5 mg Q4HR [facility] 06/20/24 10:00 07/02/24 06:31 0.5 MG Ceftriaxone Sodium 50 ml @ 100 mls/hr DAILY@09 IV 06/20/24 09:00 07/02/24 08:00 100 MLS/HR Enoxaparin Sodium 30 mg DAILY SC 06/20/24 10:00 UNV Fentanyl Citrate 250 ml @ 2.5 mls/hr Q24H IV 06/20/24 08:30 07/02/24 05:42 25 MLS/HR Enoxaparin Sodium 40 mg DAILY SC 06/20/24 10:00 07/01/24 09:59 40 MG Norepinephrine Bitartrate 250 ml @ 3.75 mls/hr Q24H IV 06/20/24 09:01 06/30/24 01:30 3.75 MLS/HR Propofol 100 ml @ 2.454 mls/ hr Q24H IV 06/22/24 15:45 07/01/24 08:30 9.816 MLS/HR Sodium Chloride 1,000 ml @ 100 mls/hr Q10H IV 06/23/24 09:30 07/01/24 23:34 100 MLS/HR Pantoprazole Sodium 40 mg DAILY IV 06/26/24 10:00 07/01/24 09:59 40 MG Enteral Nutritional Formula 1,000 ml 40ML/HR GT 06/26/24 14:00 06/27/24 18:09 1,000 ML Quetiapine Fumarate 100 mg BID PO 06/26/24 22:00 07/01/24 21:30 100 MG Methylprednisolone Sodium Succinate 40 mg Q12H IV 06/29/24 18:00 07/02/24 05:44 40 MG Nicardipine HCl 250 ml @ 50 mls/hr Q5H IV 06/29/24 16:45 Hydralazine HCl 10 mg Q4HP PRN IV 06/29/24 16:45 Morphine Sulfate 2 mg Q4HPRN PRN IV 06/29/24 17:00 Dexmedetomidine HCl 400 mcg/ Dextrose 100 ml @ 4.09 mls/hr Q24H IV 06/29/24 17:15 06/29/24 17:15 4.09 MLS/HR Laboratory Results Laboratory Tests 07/02/24 02:40 Chemistry Test 07/02/24 02:40 Calcium Level 8.8 mg/dL (8.7-10.4) Urinalysis Test 06/20/24 11:23 06/23/24 10:15 Urine Hyaline Casts Few /lpf (0 - 2) Urine Color Light-yellow (Yellow) Urine Clarity Clear (Clear) Urine pH 6.0 (5.0-9.0) Urine Specific [place] 1.013 (1.001-1.035) Urine Protein Negative (Negative) Urine Ketones Negative (Negative) Urine Blood 2+ /uL (Negative) H Urine Nitrite Negative (Negative) Urine Bilirubin Negative (Negative) Urine Urobilinogen Normal mg/dL (Negative) Urine Leukocyte Esterase Negative /uL (Negative) Urine RBC 115 /hpf (0 - 3) Urine Microscopic WBC 2 /HPF (0-3) Urine Squamous Epithelial Cells None seen /hpf (<5) Urine Bacteria None seen /hpf (None Seen) Urine Mucus Few (None Seen) Urine Creatinine 69.90 mg/dL (30.0-125.0) Urine Protein/Creatinine Ratio 0.21 Urine Sodium 58 mmol/L (40-220) Urine Glucose Normal mg/dL (Normal) Urine Total Protein 14.8 mg/dL (1-14) H Blood Gas Results Test 07/02/24 07:07 Arterial Blood pH 7.448 (7.350-7.450) FiO2 % 30.0 Microbiology Microbiology Date/Time Source Procedure Growth Status 06/23/24 01:35 Urine - [place] Urine Culture - Final Complete 06/22/24 08:30 Nose MRSA Screen - Final Complete 06/20/24 08:23 Sputum Gram Stain - Final Complete 06/20/24 08:23 Sputum Respiratory Culture - Final Complete 06/20/24 05:19 Blood Blood Culture - Final NO GROWTH AFTER 5 DAYS OF INCUBATION. Complete Labs and/or images reviewed: Labs reviewed by me, Image(s) reviewed by me Assessment/Plan Assessment/Plan Impression: -acute on chronic hypoxic respiratory failure, now on mechanical ventilation -NSTEMI type 2 -rule out community-acquired pneumonia, Gram-positive/Gram-negative etiology -COPD with exacerbation -asthma -nicotine dependence -primary hypertension -atrial fibrillation -ventilator dependence with failed extubation. Plan: Events: No events overnight. Patient continues to fail spontaneous breathing trials. I spoke with the patient's sister, Vicky this a.m. regarding plan of care. At this time she was contemplating tracheostomy as well as transfer to long-term acute care facility. She does not entertain the ID of compassionate extubation. -restart tube feedings -continue current ventilator settings -taper steroids -weaned current sedation -continue antibiotic therapy -PUD, DVT prophylaxis -repeat labs in a.m. Critical care time spent with patient discussing and formulating plan of care: 90 minutes. This does not include time spent performing procedures. This medical document was created using an electronic medical record system with [employer] dictation system. Although this document has been carefully reviewed, there may still be some phonetic and typographical errors. These areas are purely typographical due to imperfections of the software programs, and do not reflect any compromise in the patient's medical care. Plan discussed with: Patient, Other (RN, patient's sister) Date of Service: Jul 02, 2024 Billing Provider: ESSENCE FONG NP Common Visit Codes: [id number] CARE 30-74 MIN, [id number] CARE-EACH +30MIN ESSENCE FOGN NP Jul 02, 2024 09:27
--- NOTE | 2024-07-02 11:43 | DVHINCON2 ---
Date of service: Jul 02, 2024 Family History: Cardiovascular disease G8 MOTHER, Chronic obstructive pulmonary disease G8 MOTHER, G8 FATHER, FH: cancer G8 FATHER, Hypertension G8 SISTER Allergies: Coded Allergies: NO KNOWN ALLERGIES (Unverified , 12/20/22) Home Meds Active Scripts Levofloxacin Hemihydrate (LEVAQUIN 500 MG) 500 Mg Tab, 1 TAB PO DAILY for 5 Days, #5 TAB Prov:ESSENCE FONG MARKETING INFORMATION COORDINATOR 06/09/24 Prednisone (Prednisone) 20 Mg Tab, 20 MG PO DAILY for 5 Days, #5 MG Prov:ESSENCE FONG MARKETING INFORMATION COORDINATOR 06/09/24 Famotidine (PEPCID TABLET) 20 Mg Tb, 1 TAB PO DAILY for 10 Days, #10 TAB 5 Refills Prov:JOHNNY MURRY MD 06/04/24 Azithromycin (Zithromax Z-Loc) 250 Mg Tab, 250 MG PO BID for 3 Days, #6 TAB Prov:MERLIN YING RESIDENT 03/20/24 Acetaminophen (Acetaminophen) 325 Mg Tab, 650 MG PO Q6HP PRN for 10 Days, #80 TAB Prov:FELECIA MARTINEZ RESIDENT 01/25/24 Reported Medications Hctz (Hydrochlorothiazide) 25 Mg Tab, 1 TAB PO DAILY 01/24/24 Temazepam (Restoril) 15 Mg Cp, 1 CAP PO QHSP 07/06/23 Albuterol Sulfate (Albuterol Sulfate) 0.083 % Neb, 1 PUFF NEB Q4H PRN for SHORTNESS OF BREATH 12/21/22 Albuterol Sulfate (Albuterol Sulfate Hfa) 108 Mcg/Act Aer, 108 MCG INH Q4HP PRN for SHORTNESS OF BREATH 12/21/22 Budesonide-Formoterol Fumarate (Budesonide/Formoterol Fum 160-4.5 Mcg/Act) 1 Aer Aer, 2 PUFF INH BID 12/21/22 Vital Signs Vital Signs Date Time Temp Pulse Resp B/P (MAP) Pulse Ox O2 Delivery O2 Flow Rate FiO2 07/02/24 09:47 50 18 114/69 (84) 98 30 07/02/24 09:40 Mechanical Ventilator 07/02/24 09:30 97.9 208.2 Labs/Diagnostic Data Labs Test 07/02/24 07:07 07/02/24 02:40 06/29/24 19:13 06/26/24 03:15 Range/Units Blood Gas Specimen Type Arterial Blood Gas Sample Site Right radial Blood Gas Patient Temperature 37.0 Arterial Blood Date Drawn [id number] Arterial Blood pH 7.448 7.350-7.450 Arterial Blood Partial Pressure CO2 30.3 L 35.0-48.0 mmHg Arterial Blood Partial Pressure O2 99.0 83.0-108.0 mmHg Arterial Blood HCO3 20.5 L 21.0-28.0 mmol/L Arterial Blood Oxygen Saturation 97.4 94.0-98.0 % Arterial Blood Base Excess -2.8 L -2.0-3.0 mmol/L Arterial Blood Oxyhemoglobin 96.9 94.0-98.0 % Arterial Blood Carboxyhemoglobin 0.2 L 0.5-1.5 % Arterial Blood Methemoglobin 0.3 0.0-1.5 % Godfrey Test Modified Blood Gas Total Hemoglobin 10.00 L 13.5-17.5 g/dL Blood Gas Set Respiration Rate 18.0 Blood Gas Modality Vent - ac Blood Gas Spontaneous Rate 18 FiO2 % 30.0 Blood Gas Tidal Volume 550.0 Blood Gas Inspiratory Pressure 37.0 Blood Gas PEEP or CPAP 5.0 Bl Gas Inspiratory/Expiratory Ratio 1:2.9 Specimen Drawn By jane rt White Blood Count 7.7 4.4-10.8 10^3/uL Red Blood Count 3.50 L 4.5-5.90 10^6/uL Hemoglobin 10.0 L 13.5-17.5 g/dL Hematocrit 30.8 L 41.0-53.0 % Mean Corpuscular Volume 88.0 80.0-100.0 fL Mean Corpuscular Hemoglobin 28.6 28.0-32.0 pg Mean Corpuscular Hemoglobin Concent 32.5 32.0-36.0 g/dL Red Cell Distribution Width 16.4 H 11.8-14.3 % Platelet Count 353 140-450 10^3/uL Mean Platelet Volume 8.0 6.9-10.8 fL Neutrophils (%) (Auto) 87.1 H 37.0-80.0 % Lymphocytes (%) (Auto) 5.4 L 10.0-50.0 % Monocytes (%) (Auto) 7.4 0.0-12.0 % Eosinophils (%) (Auto) 0.0 0.0-7.0 % Basophils (%) (Auto) 0.1 0.0-2.0 % Neutrophils # (Auto) 6.7 1.6-8.6 10 ^3/uL Lymphocytes # (Auto) 0.4 0.4-5.4 10 ^3/uL Monocytes # (Auto) 0.6 0-1.3 10 ^3/uL Eosinophils # (Auto) 0 0-0.8 10 ^3/uL Basophils # (Auto) 0 0-0.2 10 ^3/uL Nucleated Red Blood Cells 0.1 % Sodium Level 141 136-145 mmol/L Potassium Level 4.0 3.5-5.1 mmol/L Chloride Level 109 H 98-107 mmol/L Carbon Dioxide Level 26 20-31 mmol/L Anion Gap 6 5-15 Blood Urea Nitrogen 19 9-23 mg/dL Creatinine 0.40 L 0.700-1.30 mg/dL Glomerular Filtration Rate Calc 126 >90 mL/min BUN/Creatinine Ratio 47.5 H 10.0-20.0 Serum Glucose 93 74-106 mg/dL Calcium Level 8.8 8.7-10.4 mg/dL Blood Gas Critical Value Read Back Yes Blood Gas Notified Whom Rubén main md Blood Gas Notified Time [id number] Blood Gas Notified By Anastacia lima Magnesium Level 2.3 1.6-2.6 mg/dL Total Bilirubin 0.3 0.2-1.0 mg/dL Aspartate Amino Transferase (AST) 19 13-40 U/L Alanine Aminotransferase (ALT) 23 7-40 U/L Alkaline Phosphatase 38 L 46-116 U/L Total Protein 5.4 L 5.7-8.2 g/dL Albumin 3.8 3.2-4.8 g/dL Test 06/23/24 11:07 06/23/24 10:15 06/23/24 03:10 06/21/24 05:21 Range/Units Blood Gas Pressure Support 8 Urine Color Light-yellow Yellow Urine Clarity Clear Clear Urine pH 6.0 5.0-9.0 Urine Specific [place] 1.013 1.001-1.035 Urine Protein Negative Negative Urine Ketones Negative Negative Urine Blood 2+ H Negative /uL Urine Nitrite Negative Negative Urine Bilirubin Negative Negative Urine Urobilinogen Normal Negative mg/dL Urine Leukocyte Esterase Negative Negative /uL Urine RBC 115 0 - 3 /hpf Urine Microscopic WBC 2 0-3 /HPF Urine Squamous Epithelial Cells None seen <5 /hpf Urine Bacteria None seen None Seen /hpf Urine Mucus Few None Seen Urine Creatinine 69.90 30.0-125.0 mg/dL Urine Protein/Creatinine Ratio 0.21 Urine Sodium 58 40-220 mmol/L Urine Glucose Normal Normal mg/dL Urine Total Protein 14.8 H 1-14 mg/dL Phosphorus Level 5.4 H 2.4-5.1 mg/dL Prothrombin Time 9.6 9.3-11.8 sec Prothrombin Time INR 0.90 0.9-1.15 Activated Partial Thromboplast Time 28.2 24.5-34.5 SEC Test 06/20/24 19:30 06/20/24 11:23 06/20/24 11:00 06/20/24 05:20 Range/Units Troponin I High Sensitivity 471 *H </=54 ng/L Urine Hyaline Casts Few 0 - 2 /lpf Influenza Type A Antigen Negative Negative Influenza Type B Antigen Negative Negative SARS-CoV-2 Antigen (Rapid) Negative NEGATIVE Venous Blood pH 7.126 *L 7.320-7.430 Venous Blood pCO2 at Patient Temp 81.7 *H 38.0-54.0 mmHg Venous Blood pO2 at Patient Temp 119.0 H 23.0-48.0 mmHg Venous Blood HCO3 26.3 22.0-29.0 mmol/L Venous Blood Base Excess -5.1 L -2.0-3.0 mmol/L Blood Gas EPAP 5 Blood Gas IPAP 12 Test 06/20/24 05:19 Range/Units D-Dimer, Quantitative 0.28 0.0-0.49 mg/L FEU Lactic Acid Level 1.7 0.4-2.0 mmol/L B-Type Natriuretic Peptide 30.81 0-100 pg/mL Thyroid Stimulating Hormone (TSH) 10.08 H 0.55-4.78 uIU/mL Free Thyroxine (T4) Calculated 0.95 0.89-1.76 ng/dL Total Triiodothyronine (TT3) 1.07 0.60-1.81 ng/mL Microbiology Date/Time Source Procedure Growth Status 06/23/24 01:35 Urine - [place] Urine Culture - Final Complete 06/22/24 08:30 Nose MRSA Screen - Final Complete 06/20/24 08:23 Sputum Gram Stain - Final Complete 06/20/24 08:23 Sputum Respiratory Culture - Final Complete 06/20/24 05:19 Blood Blood Culture - Final NO GROWTH AFTER 5 DAYS OF INCUBATION. Complete Assessment patient with ventilator dependent respiratory failure, i am requested to establish a tracheostomy, patient examined, anatomy suitable, labs ok, will proceed in AM Plan discussed with: Other ANEUDY VELAZQUEZ MD Jul 02, 2024 11:43
--- NOTE | 2024-07-02 22:21 | DVHPN2 ---
Progress Note - Dictate Date Seen: Jul 02, 2024 Medical Necessity Reason Pt with a Central, PICC or Fol: Yes The following are medically ne: Mena Catheter Reason for mena catheter: Strict I&O Subjective Patient seen and examined at bedside. Sedated, intubated on mechanical ventilator. Overnight events reviewed. vital signs Vital Sign Date Time Temp Pulse Resp B/P (MAP) Pulse Ox O2 Delivery O2 Flow Rate FiO2 07/02/24 22:13 52 18 102/59 (73) 96 30 07/02/24 20:30 97.3 207.1 07/02/24 20:00 Mechanical Ventilator+ Total Intake and Output 07/01/24 07/01/24 07/02/24 15:00 23:00 07:00 Intake Total 1173.758 ml 1096.5 ml 1128.0 ml Output Total 1050 ml 950 ml Balance 1173.758 ml 46.5 ml 178.0 ml medications Current Medications Medications Dose Ordered Sig/Milvia Route Start Time Stop Time Status Last Admin Dose Admin Ondansetron HCl 4 mg Q4HP PRN IV 06/20/24 07:15 Nitroglycerin 0.4 mg Q5MINP PRN SL 06/20/24 07:15 Albuterol 2.5 mg Q4HR NEB 06/20/24 10:00 07/02/24 22:12 2.5 MG Ipratropium [place] 0.5 mg Q4HPRN PRN [facility] 06/20/24 07:30 Cancel Budesonide 0.5 mg BID [facility] 06/20/24 10:00 07/02/24 18:33 0.5 MG Midazolam HCl 50 ml @ 1 mls/hr Q24H IV 06/20/24 07:45 07/02/24 18:45 7 MLS/HR Albuterol 2.5 mg Q4HPRN PRN [facility] 06/20/24 08:00 Cancel Ipratropium [place] 0.5 mg Q4HR [facility] 06/20/24 10:00 07/02/24 22:12 0.5 MG Ceftriaxone Sodium 50 ml @ 100 mls/hr DAILY@09 IV 06/20/24 09:00 07/02/24 08:00 100 MLS/HR Enoxaparin Sodium 30 mg DAILY SC 06/20/24 10:00 UNV Fentanyl Citrate 250 ml @ 2.5 mls/hr Q24H IV 06/20/24 08:30 07/02/24 15:12 25 MLS/HR Enoxaparin Sodium 40 mg DAILY SC 06/20/24 10:00 07/02/24 11:15 40 MG Norepinephrine Bitartrate 250 ml @ 3.75 mls/hr Q24H IV 06/20/24 09:01 06/30/24 01:30 3.75 MLS/HR Propofol 100 ml @ 2.454 mls/ hr Q24H IV 06/22/24 15:45 07/01/24 08:30 9.816 MLS/HR Sodium Chloride 1,000 ml @ 100 mls/hr Q10H IV 06/23/24 09:30 07/02/24 19:00 100 MLS/HR Pantoprazole Sodium 40 mg DAILY IV 06/26/24 10:00 07/02/24 11:15 40 MG Enteral Nutritional Formula 1,000 ml 40ML/HR GT 06/26/24 14:00 06/27/24 18:09 1,000 ML Quetiapine Fumarate 100 mg BID PO 06/26/24 22:00 07/02/24 21:45 100 MG Methylprednisolone Sodium Succinate 40 mg Q12H IV 06/29/24 18:00 07/02/24 18:41 40 MG Nicardipine HCl 250 ml @ 50 mls/hr Q5H IV 06/29/24 16:45 Hydralazine HCl 10 mg Q4HP PRN IV 06/29/24 16:45 Morphine Sulfate 2 mg Q4HPRN PRN IV 06/29/24 17:00 Dexmedetomidine HCl 400 mcg/ Dextrose 100 ml @ 4.09 mls/hr Q24H IV 06/29/24 17:15 06/29/24 17:15 4.09 MLS/HR objective Gen.: Patient lying in bed in medical ICU. Sedated, intubated on mechanical ventilator. Head: Normocephalic, atraumatic. Eyes: PERRLA. Ears: Normal external anatomy. Throat: Endotracheal tube and orogastric tube in place. Neck: Supple, trachea midline. Chest: Transmitted breath sounds bilaterally. Decreased air entry bilaterally. No wheezing. Bibasilar crackles. Cardiovascular: Positive S1, positive S2. Regular rate and rhythm. Abdomen: Positive bowel sounds in all 4 quadrants. Soft, nontender, nondistended. : Mena in place. Normal external genitalia. Rectal: Deferred. Skin: Warm, dry. Intact. Extremities: 2+ radial pulses bilaterally. No lower extremity edema. Neuro: Sedated. laboratory and microbiology Laboratory Tests 07/02/24 02:40 Test 07/02/24 02:40 Range/Units Serum Glucose 93 74-106 mg/dL Assessment/Plan Impression: Acute hypoxic respiratory failure On mechanical ventilator COPD exacerbation Nicotine dependence Elevated troponin Atrial fibrillation Hypertension Events: Remains on vent support On AC mode; RR 18, VT 550, PEEP 5, FiO2 30% Sedated on Versed, Fentanyl Off Propofol Seroquel 100 mg via NGT q.12 hours Continue bronchodilators Continue IV steroids Continue IV antibiotics IV fluids with 1/2 NS at 100 mL/hr. Off Levophed, hemodynamically stable. Tube feeds for nutritional support Obtain Surgical consult for trach GI consult for PEG. SBT/ERIS Awaiting family decision on goals of care Recommend LTAC vs. compassionate extubation vs. Trach/PEG. Labs and imaging reviewed. Rest of plan as noted below. Plan: s/p intubation on mechanical ventilator. CXR image and report reviewed. Devices in place. Pulmonary congestion. No pneumothorax. No pleural effusion. ABG reviewed, compensated. Labs reviewed, within normal limits. On AC mode; RR 18, VT 550, PEEP 5, FiO2 30% Titrate FIO2 to keep O2 saturation above 90%. VAP bundle. Daily ABG and CXR while intubated Sedate for ventilator synchrony Continue bronchodilators. IV steroids Continue antibiotics. Start pressors if necessary to maintain a mean arterial blood pressure greater than 65 mmHg. Monitor renal function Monitor electrolytes. Supplement as necessary. Monitor ins and outs. GI prophylaxis. DVT prophylaxis. Prognosis: Poor given patient's multiple co-morbidities. Condition: Critical Rest of plan per hospitalist and other consultants. A total of 35 minutes of critical care time was spent reviewing the patient record, examining the patient, making a diagnostic and therapeutic plan, discussing this plan with the medical personnel, following up on diagnostic studies and following the patient for clinical stability excluding any and all procedures. At least 50% of this time was spent in direct, [id number] contact. Thank you, JENNIFER Espitia, for allowing me to participate in this patient's care. Further recommendations will depend on the patient's clinical course. Please do not hesitate to contact me if you have any questions or concerns. This medical document was created using an electronic medical record system with [employer] dictation system. Although these documentations are being carefully reviewed, there may still be some phonetic and typographical changes. The errors are purely typographical, due to imperfection on the software program, and do not reflect any compromise in the patient's medical care. Dietary Evaluation Review Comments: 1. If EN/GI accessible, Glucerna 45ml/hr, 65g pro 1296 kcal, satisfies pt's needs for Pro 80 %, Kcal 80%, in additon Propofol provides 110 kcal/100ml fat kcal Thus pt will have 1406 total kcal, supporting pt 's energy needs is increasedd to 86%. 2. If EN/GI not a option, NPO > 7 days, offer TPN per pharmacy 3. If pt off vent, passess speech eval, offer 2 g Na CCHO-60 low fat Low cholesterol diet. Expected Outcomes/Goals: gradually healed wounds, graudal weight loss, controlled blood glucose. Plan discussed with: Other (ADELINE Armstrong) Critical Care Time(min): 35 ILYA GARCES MD Jul 02, 2024 22:21
[2024-07-03] VITALS (104 sets, daily range): BP systolic 72–146; BP diastolic 50–97; PULSE 49–107; RESP 9–19; TEMP 96.8–99; O2SAT 94–100
[2024-07-03 04:07] LABS: Basophils # (auto) 0 10 ^3/uL (0-0.2); Basophils % (auto) 0.1 % (0.0-2.0); Eosinophils # (auto) 0 10 ^3/uL (0-0.8); Hematocrit 29.3 % (41.0-53.0); Hemoglobin 9.7 g/dL (13.5-17.5); Lymphocytes # (auto) 0.3 10 ^3/uL (0.4-5.4); Lymphocytes % (auto) 4.7 % (10.0-50.0); Mean Corpuscular Hemoglobin 29.2 pg (28.0-32.0); Mean Corpuscular Volume 88.6 fL (80.0-100.0); Monocytes # (auto) 0.6 10 ^3/uL (0-1.3); Monocytes % (auto) 8.9 % (0.0-12.0); Neutrophils # (auto) 6.1 10 ^3/uL (1.6-8.6); Neutrophils % (auto) 86.3 % (37.0-80.0); Nucleated Red Blood Cells % 0.1 %; Platelet Count (auto) 330 10^3/uL (140-450); Red Cell Distribution Width 16.3 % (11.8-14.3); White Blood Cell 7.1 10^3/uL (4.4-10.8)
[2024-07-03 04:21] LABS: Anion Gap 5 (5-15); Carbon Dioxide 26 mmol/L (20-31); Sodium 140 mmol/L (136-145)
[2024-07-03 04:27] LABS: Blood Urea Nitrogen 18 mg/dL (9-23)
[2024-07-03 04:31] LABS: INR 0.96 (0.9-1.15); Partial Thromboplastin Time 27.2 SEC (24.5-34.5); Prothrombin Time 10.2 sec (9.3-11.8)
[2024-07-03 04:40] LABS: Calcium 8.6 mg/dL (8.7-10.4); Chloride 109 mmol/L (98-107); Glucose 120 mg/dL (74-106)
--- NOTE | 2024-07-03 05:09 | DVH ---
CHEST RADIOGRAPH Indication: pna Technique: Single frontal view of the chest was obtained Comparison: XY CHEST PORTABLE on DOS: 07/02/24 FINDINGS: Lines and Tubes: The enteric tube terminates in the stomach. Left central venous catheter terminates in the superior vena cava. The endotracheal tube terminates 5.3 cm above ashley. Lungs: Bibasilar opacities noted. Pleura: No effusion. No pneumothorax. Cardiomediastinal contours: Unremarkable Bones: No acute osseous abnormality. IMPRESSION: 1. Support lines and tubes in appropriate position. 2. Bibasilar opacities which may reflect atelectasis or pneumonia.
[2024-07-03 06:23] LABS: Base Excess -0.7 mmol/L (-2.0-3.0)
[2024-07-03] MEDS ORDERED: HYDROmorphone HCL 2 MG/ML VL/or syr ONE (07:48)
[2024-07-03] MEDS ORDERED: MIDAZOLAM HCL 2MG/2ML 2ml VIAL (1mg/ml) ONE (07:48)
[2024-07-03] MEDS ORDERED: fentaNYL CITRATE 100 MCG/2 ML VL ONE (07:48)
--- NOTE | 2024-07-03 07:48 | DVHPN2 ---
Subjective Patient chemically sedated Reviewed: Care Plan, H&P, Labs, Medications, Previous Orders, Radiology, Other (Consultations) Changes from previous H/P or p: No Changes General: Per HPI Objective Vitals Vital Signs Date Time Temp Pulse Resp B/P (MAP) Pulse Ox O2 Delivery O2 Flow Rate FiO2 07/03/24 07:00 99.0 53 18 106/61 (76) 96 210.2 07/03/24 06:22 30 07/02/24 20:00 Mechanical Ventilator+ Intake/Output Intake and Output 07/03/24 07:00 Intake Total 3356.7 ml Output Total 2150 ml Balance 1206.7 ml Intake Oral 120 ml IV Total 2981.7 ml Tube Feeding 255 ml Output Urine Total 2150 ml General Appearance: moderate distress, Other (Intubated and sedated) HEENT: Atraumatic Lungs: Clear to auscultation, Normal air movement, Other (Mechanical ventilation) Cardiovascular: Normal S1, Normal S2, Other (Bradycardia) Abdomen: Normal bowel sounds, Soft Genitourinary: Other (Bloom's catheter) Extremities: No edema, Normal pulses Neuro: Other (Unable to assess) Skin: Dry, Intact Psych/Mental Status: Other (Unable to assess) Medications Current Medications Medications Dose Ordered Sig/Milvia Route Start Time Stop Time Status Last Admin Dose Admin Ondansetron HCl 4 mg Q4HP PRN IV 06/20/24 07:15 Nitroglycerin 0.4 mg Q5MINP PRN SL 06/20/24 07:15 Albuterol 2.5 mg Q4HR NEB 06/20/24 10:00 07/03/24 06:21 2.5 MG Ipratropium [place] 0.5 mg Q4HPRN PRN [facility] 06/20/24 07:30 Cancel Budesonide 0.5 mg BID NEB 06/20/24 10:00 07/02/24 18:33 0.5 MG Midazolam HCl 50 ml @ 1 mls/hr Q24H IV 06/20/24 07:45 07/03/24 01:47 7 MLS/HR Albuterol 2.5 mg Q4HPRN PRN NEB 06/20/24 08:00 Cancel Ipratropium [place] 0.5 mg Q4HR NEB 06/20/24 10:00 07/03/24 06:21 0.5 MG Ceftriaxone Sodium 50 ml @ 100 mls/hr DAILY@09 IV 06/20/24 09:00 07/02/24 08:00 100 MLS/HR Enoxaparin Sodium 30 mg DAILY SC 06/20/24 10:00 UNV Fentanyl Citrate 250 ml @ 2.5 mls/hr Q24H IV 06/20/24 08:30 07/03/24 00:49 25 MLS/HR Enoxaparin Sodium 40 mg DAILY SC 06/20/24 10:00 07/02/24 11:15 40 MG Norepinephrine Bitartrate 250 ml @ 3.75 mls/hr Q24H IV 06/20/24 09:01 06/30/24 01:30 3.75 MLS/HR Propofol 100 ml @ 2.454 mls/ hr Q24H IV 06/22/24 15:45 07/01/24 08:30 9.816 MLS/HR Sodium Chloride 1,000 ml @ 100 mls/hr Q10H IV 06/23/24 09:30 07/03/24 04:55 100 MLS/HR Pantoprazole Sodium 40 mg DAILY IV 06/26/24 10:00 07/02/24 11:15 40 MG Enteral Nutritional Formula 1,000 ml 40ML/HR GT 06/26/24 14:00 06/27/24 18:09 1,000 ML Quetiapine Fumarate 100 mg BID PO 06/26/24 22:00 07/02/24 21:45 100 MG Methylprednisolone Sodium Succinate 40 mg Q12H IV 06/29/24 18:00 07/03/24 05:47 40 MG Nicardipine HCl 250 ml @ 50 mls/hr Q5H IV 06/29/24 16:45 Hydralazine HCl 10 mg Q4HP PRN IV 06/29/24 16:45 Morphine Sulfate 2 mg Q4HPRN PRN IV 06/29/24 17:00 Dexmedetomidine HCl 400 mcg/ Dextrose 100 ml @ 4.09 mls/hr Q24H IV 06/29/24 17:15 06/29/24 17:15 4.09 MLS/HR Laboratory Results Laboratory Tests 07/03/24 03:35 Chemistry Test 07/03/24 03:35 Calcium Level 8.6 mg/dL (8.7-10.4) L Coagulation Test 07/03/24 03:35 Prothrombin Time 10.2 sec (9.3-11.8) Prothrombin Time INR 0.96 (0.9-1.15) Activated Partial Thromboplast Time 27.2 SEC (24.5-34.5) Urinalysis Test 06/20/24 11:23 06/23/24 10:15 Urine Hyaline Casts Few /lpf (0 - 2) Urine Color Light-yellow (Yellow) Urine Clarity Clear (Clear) Urine pH 6.0 (5.0-9.0) Urine Specific [place] 1.013 (1.001-1.035) Urine Protein Negative (Negative) Urine Ketones Negative (Negative) Urine Blood 2+ /uL (Negative) H Urine Nitrite Negative (Negative) Urine Bilirubin Negative (Negative) Urine Urobilinogen Normal mg/dL (Negative) Urine Leukocyte Esterase Negative /uL (Negative) Urine RBC 115 /hpf (0 - 3) Urine Microscopic WBC 2 /HPF (0-3) Urine Squamous Epithelial Cells None seen /hpf (<5) Urine Bacteria None seen /hpf (None Seen) Urine Mucus Few (None Seen) Urine Creatinine 69.90 mg/dL (30.0-125.0) Urine Protein/Creatinine Ratio 0.21 Urine Sodium 58 mmol/L (40-220) Urine Glucose Normal mg/dL (Normal) Urine Total Protein 14.8 mg/dL (1-14) H Blood Gas Results Test 07/03/24 06:15 Arterial Blood pH 7.415 (7.350-7.450) FiO2 % 30.0 Microbiology Microbiology Date/Time Source Procedure Growth Status 06/23/24 01:35 Urine - [place] Urine Culture - Final Complete 06/22/24 08:30 Nose MRSA Screen - Final Complete 06/20/24 08:23 Sputum Gram Stain - Final Complete 06/20/24 08:23 Sputum Respiratory Culture - Final Complete 06/20/24 05:19 Blood Blood Culture - Final NO GROWTH AFTER 5 DAYS OF INCUBATION. Complete Labs and/or images reviewed: Labs reviewed by me, Image(s) reviewed by me Assessment/Plan Assessment/Plan Impression: -acute on chronic hypoxic respiratory failure, now on mechanical ventilation -NSTEMI type 2 -rule out community-acquired pneumonia, Gram-positive/Gram-negative etiology -COPD with exacerbation -asthma -nicotine dependence -primary hypertension -atrial fibrillation -ventilator dependence with failed extubation. Plan: Events: No events overnight. Discussed case in detail with pulmonology and patient's sister, Vicky. Patient's sister is in agreement with tracheostomy. Patient is scheduled for tracheostomy today. -continue current ventilator settings -taper steroids -weaned current sedation -continue antibiotic therapy -PUD, DVT prophylaxis -repeat labs in a.m. Social service consultation for LTAC placement Critical care time spent with patient discussing and formulating plan of care: 90 minutes. This does not include time spent performing procedures. This medical document was created using an electronic medical record system with [email or web address] dictation system. Although this document has been carefully reviewed, there may still be some phonetic and typographical errors. These areas are purely typographical due to imperfections of the software programs, and do not reflect any compromise in the patient's medical care. Plan discussed with: Patient, Other (RN) My Orders Orders - ESSENCE FONG NP Procedure Category Date Status Time * Surgical Consult CONS 07/02/24 Transmitted Date of Service: Jul 03, 2024 Billing Provider: ESSENCE FONG NP Common Visit Codes: [id number] CARE 30-74 MIN ESSENCE FONG NP Jul 03, 2024 07:48
[2024-07-03] MEDS ORDERED: PROPOFOL 10 MG/ML 20 ML IV ONE (08:16)
[2024-07-03] MEDS ORDERED: ROCURONIUM 10MG/ML 10ML VIAL IV ONE ×2 (08:17→08:47)
[2024-07-03] MEDS: LIDOCAINE W/ EPINEPHRINE 1% 20ML VIAL IJ ONE (08:30)
--- NOTE | 2024-07-03 09:04 | DVHOP ---
DATE OF SURGERY: 07/03/2024 PREOPERATIVE DIAGNOSIS: Ventilator-dependent respiratory failure. POSTOPERATIVE DIAGNOSIS: Ventilator-dependent respiratory failure. SURGEON: Valerio Castanon MD WINDOW REPAIRER: Arnoldo Lebron. ANESTHESIA: General endotracheal. ANESTHESIOLOGIST: Dr. Torres. PROCEDURE: Tracheostomy. DESCRIPTION OF PROCEDURE: Under general anesthesia with the patient's skin prepped and draped, a vertical incision was made the patient's anterior neck above the sternal notch and below the thyroid cartilage. The patient's subcutaneous tissues were retracted. Fat was divided with electrocautery down on to the anterior surface of the trachea, which was swept of off areolar and adipose tissue. An incision made between the second and third tracheal ring was dilated to accommodate a size 8 Shiley nonfenestrated tracheostomy tube, which was then advanced as the endotracheal tube was retrieved by the anesthesiologist. Reaching the final position, the tracheostomy was secured with insufflation of the cuff with 7 mL of air and further secured with Prolene sutures and the circumferential umbilical tape. There was an immediate return of CO2 capture and immediate return to normal gas exchange. The patient remained hemodynamically stable throughout the procedure, left the operating room following an accurate needle and sponge count. Chest x-ray was ordered, pending at the time of this dictation. The patient's family was thoroughly informed by phone. Valerio Castanon MD PF/JITENDRA TID: [id number] RECEIPT: [id number]
--- NOTE | 2024-07-03 09:18 | DVH ---
CHEST RADIOGRAPH Indication: post tracheostomy Technique: Single frontal view of the chest was obtained Comparison: XY CHEST PORTABLE on DOS: 07/03/24, XY CHEST PORTABLE on DOS: 07/02/24, XY CHEST PORTABLE on DOS: 07/01/24, XY CHEST PORTABLE on DOS: 06/30/24, XY CHEST PORTABLE on DOS: 06/29/24, XY CHEST PORTABLE on DOS: 07/03/24 FINDINGS: Lines and Tubes: Status post tracheostomy. Left central venous catheter terminates in the superior v thuan cava. The endotracheal tube terminates 5.3 cm above ashley. Lungs: Bibasilar opacities noted. Pleura: No effusion. No pneumothorax. Cardiomediastinal contours: Unremarkable Bones: No acute osseous abnormality. IMPRESSION: 1. Status post tracheostomy 2. Bibasilar opacities which may reflect atelectasis or pneumonia.
[2024-07-03] MEDS: LIDOCAINE W/ EPINEPHRINE 1% 20ML VIAL ONE (09:53)
[2024-07-03] MEDS: BUPIVACAINE 0.25% INJ 50ML VIAL ONE (09:53)
--- NOTE | 2024-07-03 22:22 | DVHPN2 ---
Progress Note - Dictate Date Seen: Jul 03, 2024 Medical Necessity Reason Pt with a Central, PICC or Fol: Yes The following are medically ne: Mena Catheter Reason for mena catheter: Strict I&O Subjective Patient seen and examined at bedside. Sedated, on mechanical ventilator. Trach in place Overnight events reviewed. vital signs Vital Sign Date Time Temp Pulse Resp B/P (MAP) Pulse Ox O2 Delivery O2 Flow Rate FiO2 07/03/24 22:00 98.6 73 9 120/68 (85) 97 98.6 07/03/24 22:00 30 07/03/24 20:00 Mechanical Ventilator+ Total Intake and Output 07/02/24 07/02/24 07/03/24 15:00 23:00 07:00 Intake Total 1102 ml 1165.7 ml 1089 ml Output Total 1200 ml 950 ml Balance 1102 ml -34.3 ml 139 ml medications Current Medications Medications Dose Ordered Sig/Milvia Route Start Time Stop Time Status Last Admin Dose Admin Ondansetron HCl 4 mg Q4HP PRN IV 06/20/24 07:15 Nitroglycerin 0.4 mg Q5MINP PRN SL 06/20/24 07:15 Albuterol 2.5 mg Q4HR NEB 06/20/24 10:00 07/03/24 18:41 2.5 MG Ipratropium [place] 0.5 mg Q4HPRN PRN [facility] 06/20/24 07:30 Cancel Budesonide 0.5 mg BID [facility] 06/20/24 10:00 07/03/24 10:16 0.5 MG Midazolam HCl 50 ml @ 1 mls/hr Q24H IV 06/20/24 07:45 07/03/24 17:03 7 MLS/HR Albuterol 2.5 mg Q4HPRN PRN [facility] 06/20/24 08:00 Cancel Ipratropium [place] 0.5 mg Q4HR [facility] 06/20/24 10:00 07/03/24 18:40 0.5 MG Ceftriaxone Sodium 50 ml @ 100 mls/hr DAILY@09 IV 06/20/24 09:00 07/03/24 09:36 100 MLS/HR Enoxaparin Sodium 30 mg DAILY SC 06/20/24 10:00 UNV Fentanyl Citrate 250 ml @ 2.5 mls/hr Q24H IV 06/20/24 08:30 07/03/24 20:00 25 MLS/HR Enoxaparin Sodium 40 mg DAILY SC 06/20/24 10:00 07/02/24 11:15 40 MG Norepinephrine Bitartrate 250 ml @ 3.75 mls/hr Q24H IV 06/20/24 09:01 06/30/24 01:30 3.75 MLS/HR Propofol 100 ml @ 2.454 mls/ hr Q24H IV 06/22/24 15:45 07/01/24 08:30 9.816 MLS/HR Sodium Chloride 1,000 ml @ 100 mls/hr Q10H IV 06/23/24 09:30 07/03/24 21:58 100 MLS/HR Pantoprazole Sodium 40 mg DAILY IV 06/26/24 10:00 07/03/24 09:36 40 MG Enteral Nutritional Formula 1,000 ml 40ML/HR GT 06/26/24 14:00 06/27/24 18:09 1,000 ML Quetiapine Fumarate 100 mg BID PO 06/26/24 22:00 07/03/24 21:52 100 MG Methylprednisolone Sodium Succinate 40 mg Q12H IV 06/29/24 18:00 07/03/24 18:11 40 MG Nicardipine HCl 250 ml @ 50 mls/hr Q5H IV 06/29/24 16:45 Hydralazine HCl 10 mg Q4HP PRN IV 06/29/24 16:45 Morphine Sulfate 2 mg Q4HPRN PRN IV 06/29/24 17:00 Dexmedetomidine HCl 400 mcg/ Dextrose 100 ml @ 4.09 mls/hr Q24H IV 06/29/24 17:15 06/29/24 17:15 4.09 MLS/HR objective Gen.: Patient lying in bed in medical ICU. Sedated, on mechanical ventilator. Trach. Head: Normocephalic, atraumatic. Eyes: PERRLA. Ears: Normal external anatomy. Throat: Endotracheal tube and orogastric tube in place. Neck: Trach in place. Chest: Transmitted breath sounds bilaterally. Decreased air entry bilaterally. No wheezing. Bibasilar crackles. Cardiovascular: Positive S1, positive S2. Regular rate and rhythm. Abdomen: Positive bowel sounds in all 4 quadrants. Soft, nontender, nondistended. : Mena in place. Normal external genitalia. Rectal: Deferred. Skin: Warm, dry. Intact. Extremities: 2+ radial pulses bilaterally. No lower extremity edema. Neuro: Sedated. laboratory and microbiology Laboratory Tests 07/03/24 03:35 Test 07/03/24 03:35 Range/Units Serum Glucose 120 H 74-106 mg/dL Assessment/Plan Impression: Acute hypoxic respiratory failure On mechanical ventilator S/p tracheostomy COPD exacerbation Nicotine dependence Elevated troponin Atrial fibrillation Hypertension Events: Remains on vent support On AC mode; RR 18, VT 550, PEEP 5, FiO2 30% S/p trach ABG reviewed, compensated CXR reviewed, demonstrates bibasilar opacities. No effusion or pneumothorax. Sedated on Versed, Fentanyl Seroquel 100 mg via NGT q.12 hours Continue bronchodilators Continue IV steroids Continue IV antibiotics IV fluids with 1/2 NS at 100 mL/hr. Off Levophed, hemodynamically stable. Tube feeds for nutritional support GI consult for PEG placement. SBT/ERIS Labs and imaging reviewed. Rest of plan as noted below. Plan: s/p intubation on mechanical ventilator. On AC mode; RR 18, VT 550, PEEP 5, FiO2 30% Titrate FIO2 to keep O2 saturation above 90%. VAP bundle. Daily ABG and CXR while intubated Sedate for ventilator synchrony Continue bronchodilators. IV steroids Continue antibiotics. Start pressors if necessary to maintain a mean arterial blood pressure greater than 65 mmHg. Monitor renal function Monitor electrolytes. Supplement as necessary. Monitor ins and outs. GI prophylaxis. DVT prophylaxis. Prognosis: Poor given patient's multiple co-morbidities. Condition: Critical Rest of plan per hospitalist and other consultants. A total of 35 minutes of critical care time was spent reviewing the patient record, examining the patient, making a diagnostic and therapeutic plan, discussing this plan with the medical personnel, following up on diagnostic studies and following the patient for clinical stability excluding any and all procedures. At least 50% of this time was spent in direct, [id number] contact. Thank you, JENNIFER Espitia, for allowing me to participate in this patient's care. Further recommendations will depend on the patient's clinical course. Please do not hesitate to contact me if you have any questions or concerns. This medical document was created using an electronic medical record system with Dragon computerized dictation system. Although these documentations are being carefully reviewed, there may still be some phonetic and typographical changes. The errors are purely typographical, due to imperfection on the software program, and do not reflect any compromise in the patient's medical care. Dietary Evaluation Review Comments: 1. If EN/GI accessible, Glucerna 45ml/hr, 65g pro 1296 kcal, satisfies pt's needs for Pro 80 %, Kcal 80%, in additon Propofol provides 110 kcal/100ml fat kcal Thus pt will have 1406 total kcal, supporting pt 's energy needs is increasedd to 86%. 2. If EN/GI not a option, NPO > 7 days, offer TPN per pharmacy 3. If pt off vent, passess speech eval, offer 2 g Na CCHO-60 low fat Low cholesterol diet. Expected Outcomes/Goals: gradually healed wounds, graudal weight loss, controlled blood glucose. Plan discussed with: Other (ADELINE Armstrong) Critical Care Time(min): 35 ILYA GARCES MD Jul 03, 2024 22:22
[2024-07-04] VITALS (108 sets, daily range): BP systolic 95–134; BP diastolic 54–81; PULSE 55–106; RESP 11–19; TEMP 97.3–99; O2SAT 92–100
[2024-07-04 08:37] LABS: Basophils # (auto) 0 10 ^3/uL (0-0.2); Basophils % (auto) 0.1 % (0.0-2.0); Eosinophils # (auto) 0 10 ^3/uL (0-0.8); Hematocrit 29.6 % (41.0-53.0); Hemoglobin 9.7 g/dL (13.5-17.5); Lymphocytes # (auto) 0.4 10 ^3/uL (0.4-5.4); Lymphocytes % (auto) 4.1 % (10.0-50.0); Mean Corpuscular Hemoglobin 28.8 pg (28.0-32.0); Mean Corpuscular Hgb Conc. 32.7 g/dL (32.0-36.0); Mean Corpuscular Volume 88.1 fL (80.0-100.0); Monocytes # (auto) 0.8 10 ^3/uL (0-1.3); Monocytes % (auto) 8.4 % (0.0-12.0); Neutrophils # (auto) 7.9 10 ^3/uL (1.6-8.6); Neutrophils % (auto) 87.4 % (37.0-80.0); Nucleated Red Blood Cells % 0.1 %; Platelet Count (auto) 345 10^3/uL (140-450); Red Blood Cells 3.36 10^6/uL (4.5-5.90); Red Cell Distribution Width 16.3 % (11.8-14.3); White Blood Cell 9.1 10^3/uL (4.4-10.8)
--- NOTE | 2024-07-04 08:56 | DVH ---
CHEST RADIOGRAPH Indication: pna Technique: Single frontal view of the chest was obtained Comparison: XY CHEST PORTABLE on DOS: 07/03/24, XY CHEST PORTABLE on DOS: 07/03/24, XY CHEST PORTABLE on DOS: 07/02/24, XY CHEST PORTABLE on DOS: 07/01/24, XY CHEST PORTABLE on DOS: 06/30/24, XY CHEST PORTABLE o n DOS: 07/03/24 FINDINGS: Lines and Tubes: Status post tracheostomy. Left central venous catheter terminates in the superior v thuan cava. The endotracheal tube terminates 5.3 cm above [place]. Lungs: Bibasilar opacities noted. Pleura: No effusion. No pneumothorax. Cardiomediastinal contours: Unremarkable Bones: No acute osseous abnormality. IMPRESSION: 1. No change. 2. Bibasilar opacities which may reflect atelectasis or pneumonia.
--- NOTE | 2024-07-04 09:15 | DVHPN2 ---
Subjective Patient chemically sedated Reviewed: Care Plan, H&P, Labs, Medications, Previous Orders, Radiology, Other (Consultations) Changes from previous H/P or p: No Changes General: Per HPI Objective Vitals Vital Signs Date Time Temp Pulse Resp B/P (MAP) Pulse Ox O2 Delivery O2 Flow Rate FiO2 07/04/24 08:20 62 18 110/70 (83) 99 30 07/04/24 06:45 98.4 209.1 07/03/24 20:00 Mechanical Ventilator+ Intake/Output Intake and Output 07/04/24 07:00 Intake Total 2970 ml Output Total 2600 ml Balance 370 ml Intake Oral 160 ml IV Total 2810 ml Tube Feeding 0 ml Output Urine Total 2600 ml General Appearance: moderate distress, Other (Intubated and sedated) HEENT: Atraumatic Lungs: Clear to auscultation, Normal air movement, Other (Mechanical ventilation) Cardiovascular: Normal S1, Normal S2, Other (Bradycardia) Abdomen: Normal bowel sounds, Soft Genitourinary: Other (Bloom's catheter) Extremities: No edema, Normal pulses Neuro: Other (Unable to assess) Skin: Dry, Intact Psych/Mental Status: Other (Unable to assess) Medications Current Medications Medications Dose Ordered Sig/Milvia Route Start Time Stop Time Status Last Admin Dose Admin Ondansetron HCl 4 mg Q4HP PRN IV 06/20/24 07:15 Nitroglycerin 0.4 mg Q5MINP PRN SL 06/20/24 07:15 [address] 2[address] [facility] 06/20/24 10:00 07/04/24 06:39 2.5 MG Ipratropium [place] 0.[address] [facility] 06/20/24 07:30 Cancel Budesonide 0.[address] [facility] 06/20/24 10:00 07/04/24 06:39 0.5 MG Midazolam HCl 50 ml @ 1 mls/hr Q24H IV 06/20/24 07:45 07/04/24 04:33 7 MLS/HR Albuterol 2.[address] [facility] 06/20/24 08:00 Cancel Ipratropium [place] 0.[address] [facility] 06/20/24 10:00 07/04/24 06:39 0.5 MG Ceftriaxone Sodium 50 ml @ 100 mls/hr DAILY@09 IV 06/20/24 09:00 07/03/24 09:36 100 MLS/HR Enoxaparin Sodium 30 mg DAILY SC 06/20/24 10:00 UNV Fentanyl Citrate 250 ml @ 2.5 mls/hr Q24H IV 06/20/24 08:30 07/04/24 04:33 25 MLS/HR Enoxaparin Sodium 40 mg DAILY SC 06/20/24 10:00 07/02/24 11:15 40 MG Norepinephrine Bitartrate 250 ml @ 3.75 mls/hr Q24H IV 06/20/24 09:01 06/30/24 01:30 3.75 MLS/HR Propofol 100 ml @ 2.454 mls/ hr Q24H IV 06/22/24 15:45 07/04/24 06:58 2.454 MLS/HR Sodium Chloride 1,000 ml @ 100 mls/hr Q10H IV 06/23/24 09:30 07/03/24 21:58 100 MLS/HR Pantoprazole Sodium 40 mg DAILY IV 06/26/24 10:00 07/03/24 09:36 40 MG Enteral Nutritional Formula 1,000 ml 40ML/HR GT 06/26/24 14:00 06/27/24 18:09 1,000 ML Quetiapine Fumarate 100 mg BID PO 06/26/24 22:00 07/03/24 21:52 100 MG Methylprednisolone Sodium Succinate 40 mg Q12H IV 06/29/24 18:00 07/04/24 05:41 40 MG Nicardipine HCl 250 ml @ 50 mls/hr Q5H IV 06/29/24 16:45 Hydralazine HCl 10 mg Q4HP PRN IV 06/29/24 16:45 Morphine Sulfate 2 mg Q4HPRN PRN IV 06/29/24 17:00 Dexmedetomidine HCl 400 mcg/ Dextrose 100 ml @ 4.09 mls/hr Q24H IV 06/29/24 17:15 06/29/24 17:15 4.09 MLS/HR Laboratory Results Laboratory Tests 07/03/24 03:35 07/04/24 08:07 Urinalysis Test 06/20/24 11:23 06/23/24 10:15 Urine Hyaline Casts Few /lpf (0 - 2) Urine Color Light-yellow (Yellow) Urine Clarity Clear (Clear) Urine pH 6.0 (5.0-9.0) Urine Specific [place] 1.013 (1.001-1.035) Urine Protein Negative (Negative) Urine Ketones Negative (Negative) Urine Blood 2+ /uL (Negative) H Urine Nitrite Negative (Negative) Urine Bilirubin Negative (Negative) Urine Urobilinogen Normal mg/dL (Negative) Urine Leukocyte Esterase Negative /uL (Negative) Urine RBC 115 /hpf (0 - 3) Urine Microscopic WBC 2 /HPF (0-3) Urine Squamous Epithelial Cells None seen /hpf (<5) Urine Bacteria None seen /hpf (None Seen) Urine Mucus Few (None Seen) Urine Creatinine 69.90 mg/dL (30.0-125.0) Urine Protein/Creatinine Ratio 0.21 Urine Sodium 58 mmol/L (40-220) Urine Glucose Normal mg/dL (Normal) Urine Total Protein 14.8 mg/dL (1-14) H Microbiology Microbiology Date/Time Source Procedure Growth Status 06/23/24 01:35 Urine - [place] Urine Culture - Final Complete 06/22/24 08:30 Nose MRSA Screen - Final Complete 06/20/24 08:23 Sputum Gram Stain - Final Complete 06/20/24 08:23 Sputum Respiratory Culture - Final Complete 06/20/24 05:19 Blood Blood Culture - Final NO GROWTH AFTER 5 DAYS OF INCUBATION. Complete Labs and/or images reviewed: Labs reviewed by me, Image(s) reviewed by me Assessment/Plan Assessment/Plan Impression: -acute on chronic hypoxic respiratory failure, now on mechanical ventilation -NSTEMI type 2 -rule out community-acquired pneumonia, Gram-positive/Gram-negative etiology -COPD with exacerbation -asthma -nicotine dependence -primary hypertension -atrial fibrillation -ventilator dependence with failed extubation. Plan: Events: No events overnight. Hemodynamically stable. Cleared to transfer to LTAC once clearance is provided by surgeon. -continue current ventilator settings -taper steroids -wean current sedation -continue antibiotic therapy -PUD, DVT prophylaxis -repeat labs in a.m. Social service consultation for LTAC placement Critical care time spent with patient discussing and formulating plan of care: 90 minutes. This does not include time spent performing procedures. This medical document was created using an electronic medical record system with [employer] system. Although this document has been carefully reviewed, there may still be some phonetic and typographical errors. These areas are purely typographical due to imperfections of the software programs, and do not reflect any compromise in the patient's medical care. Plan discussed with: Patient, Other (RN) My Orders Orders - ESSENCE FONG NP Procedure Category Date Status Time Chest Xray 1 View XY 07/04/24 Resulted 08:05 Doxycycline PHA 07/04/24 Verified 100mg/100ml 09:15 Date of Service: Jul 04, 2024 Billing Provider: ESSENCE FONG NP Common Visit Codes: [id number] CARE 30-74 MIN ESSENCE FONG NP Jul 04, 2024 09:15
[2024-07-04] MEDS: DOXYCYCLINE 100MG/100ML 100 ML IV SCH (11:13)
--- NOTE | 2024-07-04 12:23 | DVHPN2 ---
Progress Note Date Seen: Jul 04, 2024 Medical Necessity Reason Pt with a Central, PICC or Fol: Yes The following are medically ne: Mena Catheter Reason for mena catheter: Strict I&O Objective vital signs Vital Sign Date Time Temp Pulse Resp B/P (MAP) Pulse Ox O2 Delivery O2 Flow Rate FiO2 07/04/24 12:00 30 07/04/24 10:52 55 18 118/70 (86) 98 07/04/24 10:45 97.3 207.1 07/04/24 10:00 Mechanical Ventilator+ Total Intake and Output 07/03/24 07/03/24 07/04/24 15:00 23:00 07:00 Intake Total 974 ml 991 ml 1139.454 ml Output Total 1150 ml 1450 ml Balance 974 ml -159 ml -310.546 ml medications Current Medications Medications Dose Ordered Sig/Milvia Route Start Time Stop Time Status Last Admin Dose Admin Ondansetron HCl 4 mg Q4HP PRN IV 06/20/24 07:15 Nitroglycerin 0.4 mg Q5MINP PRN 06/20/24 07:15 Albuterol 2.5 mg Q4HR [facility] 06/20/24 10:00 07/04/24 10:52 2.5 MG Ipratropium [place] 0.5 mg Q4HPRN PRN [facility] 06/20/24 07:30 Cancel Budesonide 0.5 mg BID [facility] 06/20/24 10:00 07/04/24 06:39 0.5 MG Midazolam HCl 50 ml @ 1 mls/hr Q24H IV 06/20/24 07:45 07/04/24 09:16 7 MLS/HR Albuterol 2.5 mg Q4HPRN PRN [facility] 06/20/24 08:00 Cancel Ipratropium [place] 0.5 mg Q4HR [facility] 06/20/24 10:00 07/04/24 10:52 0.5 MG Ceftriaxone Sodium 50 ml @ 100 mls/hr DAILY@09 IV 06/20/24 09:00 07/04/24 09:10 100 MLS/HR Enoxaparin Sodium 30 mg DAILY SC 06/20/24 10:00 UNV Fentanyl Citrate 250 ml @ 2.5 mls/hr Q24H IV 06/20/24 08:30 07/04/24 04:33 25 MLS/HR Enoxaparin Sodium 40 mg DAILY SC 06/20/24 10:00 07/02/24 11:15 40 MG Norepinephrine Bitartrate 250 ml @ 3.75 mls/hr Q24H IV 06/20/24 09:01 06/30/24 01:30 3.75 MLS/HR Propofol 100 ml @ 2.454 mls/ hr Q24H IV 06/22/24 15:45 07/04/24 06:58 2.454 MLS/HR Sodium Chloride 1,000 ml @ 100 mls/hr Q10H IV 06/23/24 09:30 07/03/24 21:58 100 MLS/HR Pantoprazole Sodium 40 mg DAILY IV 06/26/24 10:00 07/04/24 09:10 40 MG Enteral Nutritional Formula 1,000 ml 40ML/HR GT 06/26/24 14:00 06/27/24 18:09 1,000 ML Quetiapine Fumarate 100 mg BID PO 06/26/24 22:00 07/04/24 09:10 100 MG Methylprednisolone Sodium Succinate 40 mg Q12H IV 06/29/24 18:00 07/04/24 05:41 40 MG Hydralazine HCl 10 mg Q4HP PRN IV 06/29/24 16:45 Morphine Sulfate 2 mg Q4HPRN PRN IV 06/29/24 17:00 Dexmedetomidine HCl 400 mcg/ Dextrose 100 ml @ 4.09 mls/hr Q24H IV 06/29/24 17:15 06/29/24 17:15 4.09 MLS/HR Doxycycline Hyclate 100 ml @ 50 mls/hr Q12HR IV 07/04/24 10:00 07/04/24 11:13 50 MLS/HR laboratory and microbiology Laboratory Tests 07/04/24 08:07 07/03/24 03:35 Test 07/03/24 03:35 Range/Units Serum Glucose 120 H 74-106 mg/dL Problem List/Assessment/Plan Problem List/Assessment/Plan 07/04/24 HAD SOME BLEEDING FROM THE TRACHEOSTOMY SITE, NOW RESOLVED, LUNGS INFLATED, CXR OK, WILL SIGN OFF, PLEASE RECALL IF NEEDED Plan discussed with: Patient Dietary Evaluation Review Comments: 1. If EN/GI accessible, Glucerna 45ml/hr, 65g pro 1296 kcal, satisfies pt's needs for Pro 80 %, Kcal 80%, in additon Propofol provides 110 kcal/100ml fat kcal Thus pt will have 1406 total kcal, supporting pt 's energy needs is increasedd to 86%. 2. If EN/GI not a option, NPO > 7 days, offer TPN per pharmacy 3. If pt off vent, passess speech eval, offer 2 g Na CCHO-60 low fat Low cholesterol diet. Expected Outcomes/Goals: gradually healed wounds, graudal weight loss, controlled blood glucose. ANEUDY VELAZQUEZ MD Jul 04, 2024 12:23
--- NOTE | 2024-07-04 23:04 | DVHPN2 ---
Progress Note - Dictate Date Seen: Jul 04, 2024 Medical Necessity Reason Pt with a Central, PICC or Fol: Yes The following are medically ne: Mena Catheter Reason for mena catheter: Strict I&O Subjective Patient seen and examined at bedside. Sedated, on mechanical ventilator. Trach in place Overnight events reviewed. vital signs Vital Sign Date Time Temp Pulse Resp B/P (MAP) Pulse Ox O2 Delivery O2 Flow Rate FiO2 07/04/24 22:29 107/62 07/04/24 22:11 58 18 98 30 07/04/24 18:45 98.6 209.5 07/04/24 10:00 Mechanical Ventilator+ Total Intake and Output 07/03/24 07/03/24 07/04/24 15:00 23:00 07:00 Intake Total 974 ml 991 ml 1139.454 ml Output Total 1150 ml 1450 ml Balance 974 ml -159 ml -310.546 ml medications Current Medications Medications Dose Ordered Sig/Milvia Route Start Time Stop Time Status Last Admin Dose Admin Ondansetron HCl 4 mg Q4HP PRN IV 06/20/24 07:15 Nitroglycerin 0.4 mg Q5MINP PRN SL 06/20/24 07:15 Albuterol 2.5 mg Q4HR [facility] 06/20/24 10:00 07/04/24 22:11 2.5 MG Ipratropium [place] 0.5 mg Q4HPRN PRN [facility] 06/20/24 07:30 Cancel Budesonide 0.5 mg BID [facility] 06/20/24 10:00 07/04/24 22:11 0.5 MG Midazolam HCl 50 ml @ 1 mls/hr Q24H IV 06/20/24 07:45 07/04/24 22:29 7 MLS/HR Albuterol 2.5 mg Q4HPRN PRN [facility] 06/20/24 08:00 Cancel Ipratropium [place] 0.5 mg Q4HR [facility] 06/20/24 10:00 07/04/24 22:11 0.5 MG Ceftriaxone Sodium 50 ml @ 100 mls/hr DAILY@09 IV 06/20/24 09:00 07/04/24 09:10 100 MLS/HR Enoxaparin Sodium 30 mg DAILY SC 06/20/24 10:00 UNV Fentanyl Citrate 250 ml @ 2.5 mls/hr Q24H IV 06/20/24 08:30 07/04/24 22:28 25 MLS/HR Enoxaparin Sodium 40 mg DAILY SC 06/20/24 10:00 07/02/24 11:15 40 MG Norepinephrine Bitartrate 250 ml @ 3.75 mls/hr Q24H IV 06/20/24 09:01 06/30/24 01:30 3.75 MLS/HR Propofol 100 ml @ 2.454 mls/ hr Q24H IV 06/22/24 15:45 07/04/24 22:29 4.908 MLS/HR Sodium Chloride 1,000 ml @ 100 mls/hr Q10H IV 06/23/24 09:30 07/04/24 16:35 100 MLS/HR Pantoprazole Sodium 40 mg DAILY IV 06/26/24 10:00 07/04/24 09:10 40 MG Enteral Nutritional Formula 1,000 ml 40ML/HR GT 06/26/24 14:00 06/27/24 18:09 1,000 ML Quetiapine Fumarate 100 mg BID PO 06/26/24 22:00 07/04/24 22:45 100 MG Methylprednisolone Sodium Succinate 40 mg Q12H IV 06/29/24 18:00 07/04/24 17:47 40 MG Hydralazine HCl 10 mg Q4HP PRN IV 06/29/24 16:45 Morphine Sulfate 2 mg Q4HPRN PRN IV 06/29/24 17:00 Dexmedetomidine HCl 400 mcg/ Dextrose 100 ml @ 4.09 mls/hr Q24H IV 06/29/24 17:15 06/29/24 17:15 4.09 MLS/HR Doxycycline Hyclate 100 ml @ 50 mls/hr Q12HR IV 07/04/24 10:00 07/04/24 22:44 50 MLS/HR objective Gen.: Patient lying in bed in medical ICU. Sedated, on mechanical ventilator. Trach. Head: Normocephalic, atraumatic. Eyes: PERRLA. Ears: Normal external anatomy. Throat: Endotracheal tube and orogastric tube in place. Neck: Trach in place. Chest: Transmitted breath sounds bilaterally. Decreased air entry bilaterally. No wheezing. Bibasilar crackles. Cardiovascular: Positive S1, positive S2. Regular rate and rhythm. Abdomen: Positive bowel sounds in all 4 quadrants. Soft, nontender, nondistended. : Mena in place. Normal external genitalia. Rectal: Deferred. Skin: Warm, dry. Intact. Extremities: 2+ radial pulses bilaterally. No lower extremity edema. Neuro: Sedated. laboratory and microbiology Laboratory Tests 07/04/24 08:07 07/03/24 03:35 Test 07/03/24 03:35 Range/Units Serum Glucose 120 H 74-106 mg/dL Assessment/Plan Impression: Acute hypoxic respiratory failure On mechanical ventilator S/p tracheostomy COPD exacerbation Nicotine dependence Elevated troponin Atrial fibrillation Hypertension Events: Remains on vent support On AC mode; RR 18, VT 550, PEEP 5, FiO2 30% S/p trach Bloody secretions via trach. Patient failed SBT. ABG reviewed, compensated CXR reviewed, stable; demonstrates bibasilar opacities. No effusion or pneumothorax. Sedated on Versed, Fentanyl Seroquel 100 mg via NGT q.12 hours Continue bronchodilators Continue IV steroids Continue IV antibiotics IV fluids with 1/2 NS at 100 mL/hr. Off Levophed, hemodynamically stable. Tube feeds for nutritional support GI consult for PEG placement. SBT/ERIS Labs and imaging reviewed. Rest of plan as noted below. Plan: s/p intubation on mechanical ventilator. On AC mode; RR 18, VT 550, PEEP 5, FiO2 30% Titrate FIO2 to keep O2 saturation above 90%. VAP bundle. Daily ABG and CXR while intubated Sedate for ventilator synchrony Continue bronchodilators. IV steroids Continue antibiotics. Start pressors if necessary to maintain a mean arterial blood pressure greater than 65 mmHg. Monitor renal function Monitor electrolytes. Supplement as necessary. Monitor ins and outs. GI prophylaxis. DVT prophylaxis. Prognosis: Poor given patient's multiple co-morbidities. Condition: Critical Rest of plan per hospitalist and other consultants. A total of 35 minutes of critical care time was spent reviewing the patient record, examining the patient, making a diagnostic and therapeutic plan, discussing this plan with the medical personnel, following up on diagnostic studies and following the patient for clinical stability excluding any and all procedures. At least 50% of this time was spent in direct, [id number] contact. Thank you, JENNIFER Espitia, for allowing me to participate in this patient's care. Further recommendations will depend on the patient's clinical course. Please do not hesitate to contact me if you have any questions or concerns. This medical document was created using an electronic medical record system with [employer] dictation system. Although these documentations are being carefully reviewed, there may still be some phonetic and typographical changes. The errors are purely typographical, due to imperfection on the software program, and do not reflect any compromise in the patient's medical care. Dietary Evaluation Review Comments: 1. If EN/GI accessible, Glucerna 45ml/hr, 65g pro 1296 kcal, satisfies pt's needs for Pro 80 %, Kcal 80%, in additon Propofol provides 110 kcal/100ml fat kcal Thus pt will have 1406 total kcal, supporting pt 's energy needs is increasedd to 86%. 2. If EN/GI not a option, NPO > 7 days, offer TPN per pharmacy 3. If pt off vent, passess speech eval, offer 2 g Na CCHO-60 low fat Low cholesterol diet. Expected Outcomes/Goals: gradually healed wounds, graudal weight loss, controlled blood glucose. Plan discussed with: Other (ADELINE Page) Critical Care Time(min): 35 ILYA GARCES MD Jul 04, 2024 23:04
[2024-07-05] VITALS (110 sets, daily range): BP systolic 86–140; BP diastolic 49–93; PULSE 50–120; RESP 11–23; TEMP 96.4–98.8; O2SAT 93–100
--- NOTE | 2024-07-05 05:14 | DVH ---
CHEST RADIOGRAPH Indication: trach connected to vent Technique: Single frontal view of the chest was obtained COMPARISON: XY CHEST XRAY 1 VIEW on DOS: 07/04/24, XY CHEST PORTABLE on DOS: 07/03/24, XY CHEST PORTABLE on DOS: 07/03/24, XY CHEST PORTABLE on DOS: 07/02/24, XY CHEST PORTABLE on DOS: 07/01/24 FINDINGS: Lines and Tubes: Tracheostomy, left central venous catheter and enteric catheter in satisfactory posi tion. Lungs: Patchy bilateral airspace disease. Pleura: No effusion. No pneumothorax. Cardiomediastinal contours: Unremarkable Bones: Unremarkable IMPRESSION: Lines and tubes in satisfactory position. No significant interval change.
--- NOTE | 2024-07-05 08:44 | DVHDS2 ---
Discharge Summary Date of Admission Jun 20, 2024 at 07:06 Date of Discharge: Jul 04, 2024 Admitting Diagnosis Acute respiratory failure secondary to COPD exacerbation. Labs/Diagnostic Data: Laboratory Results Test 07/05/24 07:33 07/04/24 23:19 07/04/24 08:07 07/03/24 03:35 Blood Gas Specimen Type Arterial Blood Gas Sample Site Right radial Blood Gas Patient Temperature 37.0 Arterial Blood Date Drawn [id number] Arterial Blood pH 7.421 (7.350-7.450) Arterial Blood Partial Pressure CO2 32.8 mmHg (35.0-48.0) Arterial Blood Partial Pressure O2 68.3 mmHg (83.0-108.0) Arterial Blood HCO3 20.8 mmol/L (21.0-28.0) Arterial Blood Oxygen Saturation 92.3 % (94.0-98.0) Arterial Blood Base Excess -3.0 mmol/L (-2.0-3.0) Arterial Blood Oxyhemoglobin 91.9 % (94.0-98.0) Arterial Blood Carboxyhemoglobin 0.2 % (0.5-1.5) Arterial Blood Methemoglobin 0.2 % (0.0-1.5) Godfrey Test Modified Blood Gas Total Hemoglobin 10.30 g/dL (13.5-17.5) Blood Gas Set Respiration Rate 18.0 Blood Gas Modality Vent - ac FiO2 % 30.0 Blood Gas Tidal Volume 550.0 Blood Gas PEEP or CPAP 5.0 POC Glucose 133 mg/dl (70-106) White Blood Count 9.1 10^3/uL (4.4-10.8) Red Blood Count 3.36 10^6/uL (4.5-5.90) Hemoglobin 9.7 g/dL (13.5-17.5) Hematocrit 29.6 % (41.0-53.0) Mean Corpuscular Volume 88.1 fL (80.0-100.0) Mean Corpuscular Hemoglobin 28.8 pg (28.0-32.0) Mean Corpuscular Hemoglobin Concent 32.7 g/dL (32.0-36.0) Red Cell Distribution Width 16.3 % (11.8-14.3) Platelet Count 345 10^3/uL (140-450) Mean Platelet Volume 7.7 fL (6.9-10.8) Neutrophils (%) (Auto) 87.4 % (37.0-80.0) Lymphocytes (%) (Auto) 4.1 % (10.0-50.0) Monocytes (%) (Auto) 8.4 % (0.0-12.0) Eosinophils (%) (Auto) 0.0 % (0.0-7.0) Basophils (%) (Auto) 0.1 % (0.0-2.0) Neutrophils # (Auto) 7.9 10 ^3/uL (1.6-8.6) Lymphocytes # (Auto) 0.4 10 ^3/uL (0.4-5.4) Monocytes # (Auto) 0.8 10 ^3/uL (0-1.3) Eosinophils # (Auto) 0 10 ^3/uL (0-0.8) Basophils # (Auto) 0 10 ^3/uL (0-0.2) Nucleated Red Blood Cells 0.1 % Prothrombin Time 10.2 sec (9.3-11.8) Prothrombin Time INR 0.96 (0.9-1.15) Activated Partial Thromboplast Time 27.2 SEC (24.5-34.5) Sodium Level 140 mmol/L (136-145) Potassium Level 4.0 mmol/L (3.5-5.1) Chloride Level 109 mmol/L (98-107) Carbon Dioxide Level 26 mmol/L (20-31) Anion Gap 5 (5-15) Blood Urea Nitrogen 18 mg/dL (9-23) Creatinine 0.40 mg/dL (0.700-1.30) Glomerular Filtration Rate Calc 126 mL/min (>90) BUN/Creatinine Ratio 45.0 (10.0-20.0) Serum Glucose 120 mg/dL (74-106) Calcium Level 8.6 mg/dL (8.7-10.4) Test 07/02/24 07:07 06/29/24 19:13 06/26/24 03:15 06/23/24 11:07 Blood Gas Spontaneous Rate 18 Blood Gas Inspiratory Pressure 37.0 Bl Gas Inspiratory/Expiratory Ratio 1:2.9 Specimen Drawn By avrilyde rt Blood Gas Critical Value Read Back Yes Blood Gas Notified Whom Rubén main md Blood Gas Notified Time [id number] Blood Gas Notified By [employer] e.account associate Magnesium Level 2.3 mg/dL (1.6-2.6) Total Bilirubin 0.3 mg/dL (0.2-1.0) Aspartate Amino Transferase (AST) 19 U/L (13-40) Alanine Aminotransferase (ALT) 23 U/L (7-40) Alkaline Phosphatase 38 U/L (46-116) Total Protein 5.4 g/dL (5.7-8.2) Albumin 3.8 g/dL (3.2-4.8) Blood Gas Pressure Support 8 Test 06/23/24 10:15 06/23/24 03:10 06/20/24 19:30 06/20/24 11:23 Urine Color Light-yellow (Yellow) Urine Clarity Clear (Clear) Urine pH 6.0 (5.0-9.0) Urine Specific [place] 1.013 (1.001-1.035) Urine Protein Negative (Negative) Urine Ketones Negative (Negative) Urine Blood 2+ /uL (Negative) Urine Nitrite Negative (Negative) Urine Bilirubin Negative (Negative) Urine Urobilinogen Normal mg/dL (Negative) Urine Leukocyte Esterase Negative /uL (Negative) Urine RBC 115 /hpf (0 - 3) Urine Microscopic WBC 2 /HPF (0-3) Urine Squamous Epithelial Cells None seen /hpf (<5) Urine Bacteria None seen /hpf (None Seen) Urine Mucus Few (None Seen) Urine Creatinine 69.90 mg/dL (30.0-125.0) Urine Protein/Creatinine Ratio 0.21 Urine Sodium 58 mmol/L (40-220) Urine Glucose Normal mg/dL (Normal) Urine Total Protein 14.8 mg/dL (1-14) Phosphorus Level 5.4 mg/dL (2.4-5.1) Troponin I High Sensitivity 471 ng/L (</=54) Urine Hyaline Casts Few /lpf (0 - 2) Test 06/20/24 11:00 06/20/24 05:20 06/20/24 05:19 Influenza Type A Antigen Negative (Negative) Influenza Type B Antigen Negative (Negative) SARS-CoV-2 Antigen (Rapid) Negative (NEGATIVE) Venous Blood pH 7.126 (7.320-7.430) Venous Blood pCO2 at Patient Temp 81.7 mmHg (38.0-54.0) Venous Blood pO2 at Patient Temp 119.0 mmHg (23.0-48.0) Venous Blood HCO3 26.3 mmol/L (22.0-29.0) Venous Blood Base Excess -5.1 mmol/L (-2.0-3.0) Blood Gas EPAP 5 Blood Gas IPAP 12 D-Dimer, Quantitative 0.28 mg/L FEU (0.0-0.49) Lactic Acid Level 1.7 mmol/L (0.4-2.0) B-Type Natriuretic Peptide 30.81 pg/mL (0-100) Thyroid Stimulating Hormone (TSH) 10.08 uIU/mL (0.55-4.78) Free Thyroxine (T4) Calculated 0.95 ng/dL (0.89-1.76) Total Triiodothyronine (TT3) 1.07 ng/mL (0.60-1.81) Other Laboratory Tests 07/04/24 08:07 07/03/24 03:35 Brief Hx & Hospital Course: History of Present Illness Alon Eid is a 58-year-old male with past medical history of hypertension, COPD, asthma, AFib, pneumonia, nicotine dependence, chronic back pain, and appendectomy who presents to the ED with shortness of Breath x1 day. Patient reports that the shortness of breath woke him up from sleep around 430 a.m.. Patient also reports that he has had prior COPD exacerbations. Upon examination patient working extremely hard to breathe and currently on the BiPAP. Unable to obtain further history as patient recurs immediate intubation. Course of hospitalization: Patient was placed on empiric antibiotic therapy. All cultures have been negative at this time. Patient had severe difficulties with weaning from mechanical ventilation. At one point, patient was extubated with emergent re- intubation given the patient's clinical decline. Repeat weaning trials were attempted which were all unsuccessful. Long discussion with the patient's sister, Vicky was made regarding the patient's ventilator dependence and requirement for tracheostomy and transitioned to long-term acute care placement. She verbalized understanding and agreement as well as providing consent for tracheostomy. At this time, the patient presents with both hemodynamic and respiratory stability and is cleared to be transferred to long-term acute care facility. Patient will be transferred for further attempts of weaning off mechanical ventilation. Physical examination General: Chemically sedated. Well nourished. Eyes: EOMI. Anicteric. HENT: Moist mucous membranes. Tracheostomy Lungs: Clear to auscultation bilaterally. No accessory muscle use. Cardiovascular: Regular rate and rhythm. No murmur. No JVD. Abdomen: Soft, non-tender and non-distended. No palpable masses. Extremities: No edema. Non-tender. Skin: No rashes or lesions. Warm. Neurologic: Unable to assess Psychiatric: Cooperative. Appropriate mood and affect. Total time spent with patient discussing and formulating plan of care: 35 minutes. This medical document was created using an electronic medical record system with [employer] dictation system. Although this document has been carefully reviewed, there may still be some phonetic and typographical errors. These areas are purely typographical due to imperfections of the software programs, and do not reflect any compromise in the patient's medical care. Condition at Discharge: Guarded Final Diagnosis/Problems List Acute on Chronic Respiratory Failure Secondary Diagnosis: -acute on chronic hypoxic respiratory failure, now on mechanical ventilation -NSTEMI type 2 -rule out community-acquired pneumonia, Gram-positive/Gram-negative etiology -COPD with exacerbation -asthma -nicotine dependence -primary hypertension -atrial fibrillation -ventilator dependence with failed extubation. Discharge Disposition: Acute Care Facility Discharge Instruct/Medications Diet: See Comment Diet comment: Continue Tube feeding Activity: Bed rest Follow Up/Referral: Per accepting provider Medications: Refer to Medication Reconciliation form 36 Discharge Statement: "Patient was advised to return to the ER or call 911 if any headaches, dizziness, shortness of breath, chest pain, abdominal pain, bleeding, fevers, or worsening of medical condition. Patient was counseled about treatment plan, medications, possible side effects, patientverbalized understanding. All questions were answered to the best of my ability. This discharge took greater then 30 minutes in planning, reviewing documentation, counseling the patient, and discussing with other team members." ASSESSMENT ASSESSMENT Assessment Acute on Chronic Respiratory Failure Date of Service: Jul 05, 2024 Billing Provider: ESSENCE FONG NP Common Visit Codes: 29875-SFG/[id number] DISCH DAY >30min ESSENCE FONG NP Jul 05, 2024 08:44
--- NOTE | 2024-07-05 23:37 | DVHPN2 ---
Progress Note - Dictate Date Seen: Jul 05, 2024 Medical Necessity Reason Pt with a Central, PICC or Fol: Yes The following are medically ne: Mena Catheter Reason for mena catheter: Strict I&O Subjective Patient seen and examined at bedside. Sedated, on mechanical ventilator. Trach in place Overnight events reviewed. vital signs Vital Sign Date Time Temp Pulse Resp B/P (MAP) Pulse Ox O2 Delivery O2 Flow Rate FiO2 07/05/24 22:33 110/76 07/05/24 22:08 53 18 99 30 07/05/24 20:00 Mechanical Ventilator+ 07/05/24 18:45 97.7 207.9 Total Intake and Output 07/04/24 07/04/24 07/05/24 15:00 23:00 07:00 Intake Total 1223.178 ml 1394.724 ml 1547.264 ml Output Total 1150 ml 1300 ml Balance 1223.178 ml 244.724 ml 247.264 ml medications Current Medications Medications Dose Ordered Sig/Milvia Route Start Time Stop Time Status Last Admin Dose Admin Ondansetron HCl 4 mg Q4HP PRN IV 06/20/24 07:15 Nitroglycerin 0.4 mg Q5MINP PRN SL 06/20/24 07:15 Albuterol 2.5 mg Q4HR NEB 06/20/24 10:00 07/05/24 22:07 2.5 MG Ipratropium [place] 0.5 mg Q4HPRN PRN NEB 06/20/24 07:30 Cancel Budesonide 0.5 mg BID [facility] 06/20/24 10:00 07/05/24 22:07 0.5 MG Midazolam HCl 50 ml @ 1 mls/hr Q24H IV 06/20/24 07:45 07/05/24 22:33 7 MLS/HR Albuterol 2.5 mg Q4HPRN PRN [facility] 06/20/24 08:00 Cancel Ipratropium [place] 0.5 mg Q4HR [facility] 06/20/24 10:00 07/05/24 22:07 0.5 MG Ceftriaxone Sodium 50 ml @ 100 mls/hr DAILY@09 IV 06/20/24 09:00 07/05/24 09:50 100 MLS/HR Enoxaparin Sodium 30 mg DAILY SC 06/20/24 10:00 UNV Fentanyl Citrate 250 ml @ 2.5 mls/hr Q24H IV 06/20/24 08:30 07/05/24 16:54 25 MLS/HR Enoxaparin Sodium 40 mg DAILY SC 06/20/24 10:00 07/02/24 11:15 40 MG Norepinephrine Bitartrate 250 ml @ 3.75 mls/hr Q24H IV 06/20/24 09:01 06/30/24 01:30 3.75 MLS/HR Propofol 100 ml @ 2.454 mls/ hr Q24H IV 06/22/24 15:45 07/05/24 20:17 4.908 MLS/HR Sodium Chloride 1,000 ml @ 100 mls/hr Q10H IV 06/23/24 09:30 07/05/24 22:53 100 MLS/HR Pantoprazole Sodium 40 mg DAILY IV 06/26/24 10:00 07/05/24 10:18 40 MG Enteral Nutritional Formula 1,000 ml 40ML/HR GT 06/26/24 14:00 06/27/24 18:09 1,000 ML Quetiapine Fumarate 100 mg BID PO 06/26/24 22:00 07/05/24 22:34 100 MG Methylprednisolone Sodium Succinate 40 mg Q12H IV 06/29/24 18:00 07/05/24 17:36 40 MG Hydralazine HCl 10 mg Q4HP PRN IV 06/29/24 16:45 Morphine Sulfate 2 mg Q4HPRN PRN IV 06/29/24 17:00 Dexmedetomidine HCl 400 mcg/ Dextrose 100 ml @ 4.09 mls/hr Q24H IV 06/29/24 17:15 06/29/24 17:15 4.09 MLS/HR Doxycycline Hyclate 100 ml @ 50 mls/hr Q12HR IV 07/04/24 10:00 07/05/24 22:33 50 MLS/HR objective Gen.: Patient lying in bed in medical ICU. Sedated, on mechanical ventilator. Trach. Head: Normocephalic, atraumatic. Eyes: PERRLA. Ears: Normal external anatomy. Throat: Endotracheal tube and orogastric tube in place. Neck: Trach in place. Chest: Transmitted breath sounds bilaterally. Decreased air entry bilaterally. No wheezing. Bibasilar crackles. Cardiovascular: Positive S1, positive S2. Regular rate and rhythm. Abdomen: Positive bowel sounds in all 4 quadrants. Soft, nontender, nondistended. : Mena in place. Normal external genitalia. Rectal: Deferred. Skin: Warm, dry. Intact. Extremities: 2+ radial pulses bilaterally. No lower extremity edema. Neuro: Sedated. laboratory and microbiology Laboratory Tests 07/04/24 08:07 07/03/24 03:35 Test 07/03/24 03:35 Range/Units Serum Glucose 120 H 74-106 mg/dL Assessment/Plan Impression: Acute hypoxic respiratory failure On mechanical ventilator S/p tracheostomy COPD exacerbation Nicotine dependence Elevated troponin Atrial fibrillation Hypertension Events: Remains on vent support On AC mode; RR 18, VT 550, PEEP 5, FiO2 30% S/p trach Trach care Bloody secretions via trach. Patient failed SBT He is not tolerating taper of sedation. ABG reviewed, compensated CXR reviewed, stable; demonstrates patchy bilateral airspace disease. No effusion or pneumothorax. Sedated on Versed, Propofol Fentanyl drip for analgesia Seroquel 100 mg via NGT q.12 hours Continue bronchodilators Continue IV steroids Continue IV antibiotics IV fluids with 1/2 NS at 100 mL/hr. Off Levophed, hemodynamically stable. Tube feeds for nutritional support GI consult for PEG placement. SBT/ERIS Awaiting LTAC bed. Labs and imaging reviewed. Rest of plan as noted below. Plan: s/p intubation on mechanical ventilator. On AC mode; RR 18, VT 550, PEEP 5, FiO2 30% Titrate FIO2 to keep O2 saturation above 90%. VAP bundle. Daily ABG and CXR while intubated Sedate for ventilator synchrony Continue bronchodilators. IV steroids Continue antibiotics. Start pressors if necessary to maintain a mean arterial blood pressure greater than 65 mmHg. Monitor renal function Monitor electrolytes. Supplement as necessary. Monitor ins and outs. GI prophylaxis. DVT prophylaxis. Prognosis: Poor given patient's multiple co-morbidities. Condition: Critical Rest of plan per hospitalist and other consultants. A total of 35 minutes of critical care time was spent reviewing the patient record, examining the patient, making a diagnostic and therapeutic plan, discussing this plan with the medical personnel, following up on diagnostic studies and following the patient for clinical stability excluding any and all procedures. At least 50% of this time was spent in direct, [id number] contact. Thank you, JENNIFER Espitia, for allowing me to participate in this patient's care. Further recommendations will depend on the patient's clinical course. Please do not hesitate to contact me if you have any questions or concerns. This medical document was created using an electronic medical record system with [employer] dictation system. Although these documentations are being carefully reviewed, there may still be some phonetic and typographical changes. The errors are purely typographical, due to imperfection on the software program, and do not reflect any compromise in the patient's medical care. Dietary Evaluation Review Comments: 1. If EN/GI accessible, Glucerna 45ml/hr, 65g pro 1296 kcal, satisfies pt's needs for Pro 80 %, Kcal 80%, in additon Propofol provides 110 kcal/100ml fat kcal Thus pt will have 1406 total kcal, supporting pt 's energy needs is increasedd to 86%. 2. If EN/GI not a option, NPO > 7 days, offer TPN per pharmacy 3. If pt off vent, passess speech eval, offer 2 g Na CCHO-60 low fat Low cholesterol diet. Expected Outcomes/Goals: gradually healed wounds, graudal weight loss, controlled blood glucose. Plan discussed with: Other (ADELINE Page) Critical Care Time(min): 35 ILYA GARCES MD Jul 05, 2024 23:37
[2024-07-06] VITALS (103 sets, daily range): BP systolic 87–144; BP diastolic 51–99; PULSE 50–133; RESP 4–36; TEMP 97–99.5; O2SAT 91–100
[2024-07-06 04:11] LABS: Basophils # (auto) 0 10 ^3/uL (0-0.2); Eosinophils # (auto) 0 10 ^3/uL (0-0.8); Hematocrit 26.5 % (41.0-53.0); Hemoglobin 8.9 g/dL (13.5-17.5); Lymphocytes # (auto) 0.4 10 ^3/uL (0.4-5.4); Lymphocytes % (auto) 3.9 % (10.0-50.0); Mean Corpuscular Hemoglobin 29.3 pg (28.0-32.0); Mean Corpuscular Hgb Conc. 33.6 g/dL (32.0-36.0); Mean Corpuscular Volume 87.1 fL (80.0-100.0); Monocytes # (auto) 0.7 10 ^3/uL (0-1.3); Monocytes % (auto) 7.4 % (0.0-12.0); Neutrophils # (auto) 8.5 10 ^3/uL (1.6-8.6); Neutrophils % (auto) 88.7 % (37.0-80.0); Platelet Count (auto) 286 10^3/uL (140-450); Red Blood Cells 3.04 10^6/uL (4.5-5.90); Red Cell Distribution Width 16.4 % (11.8-14.3); White Blood Cell 9.6 10^3/uL (4.4-10.8)
[2024-07-06 04:17] LABS: Anion Gap 8 (5-15); Carbon Dioxide 23 mmol/L (20-31); Potassium 3.7 mmol/L (3.5-5.1); Sodium 141 mmol/L (136-145)
[2024-07-06 04:23] LABS: BUN/Creatinine Ratio 38.2 (10.0-20.0); Blood Urea Nitrogen 13 mg/dL (9-23)
[2024-07-06 04:24] LABS: Calcium 8.4 mg/dL (8.7-10.4); Chloride 110 mmol/L (98-107); Glucose 122 mg/dL (74-106)
--- NOTE | 2024-07-06 08:49 | DVHPN2 ---
Subjective Patient chemically sedated Reviewed: Care Plan, H&P, Labs, Medications, Previous Orders, Radiology, Other (Consultations) Changes from previous H/P or p: No Changes General: Per HPI Objective Vitals Vital Signs Date Time Temp Pulse Resp B/P (MAP) Pulse Ox O2 Delivery O2 Flow Rate FiO2 07/06/24 08:30 98.4 82 18 104/66 (79) 97 209.1 07/06/24 08:00 Mechanical Ventilator+ 30 30 Intake/Output Intake and Output 07/06/24 07:00 Intake Total 4143.976 ml Output Total 2025 ml Balance 2118.976 ml Intake Oral 260 ml IV Total 3323.976 ml Tube Feeding 560 ml Output Urine Total 2025 ml General Appearance: mild distress, Other (Intubated and sedated) HEENT: Atraumatic Lungs: Clear to auscultation, Normal air movement, Other (Mechanical ventilation) Cardiovascular: Normal S1, Normal S2, Other (Bradycardia) Abdomen: Normal bowel sounds, Soft Genitourinary: Other ([place] catheter) Extremities: No edema, Normal pulses Neuro: Other (Unable to assess) Skin: Dry, Intact Psych/Mental Status: Other (Unable to assess) Medications Current Medications Medications Dose Ordered Sig/Milvia Route Start Time Stop Time Status Last Admin Dose Admin Ondansetron HCl 4 mg Q4HP PRN IV 06/20/24 07:15 Nitroglycerin 0.4 mg Q5MINP PRN SL 06/20/24 07:15 Albuterol 2.5 mg Q4HR [facility] 06/20/24 10:00 07/06/24 07:33 2.5 MG Ipratropium [place] 0.5 mg Q4HPRN PRN [facility] 06/20/24 07:30 Cancel Budesonide 0.5 mg BID [facility] 06/20/24 10:00 07/06/24 07:33 0.5 MG Midazolam HCl 50 ml @ 1 mls/hr Q24H IV 06/20/24 07:45 07/06/24 07:20 5 MLS/HR Albuterol 2.5 mg Q4HPRN PRN [facility] 06/20/24 08:00 Cancel Ipratropium [place] 0.5 mg Q4HR [facility] 06/20/24 10:00 07/06/24 07:35 0.5 MG Ceftriaxone Sodium 50 ml @ 100 mls/hr DAILY@09 IV 06/20/24 09:00 07/06/24 07:41 100 MLS/HR Enoxaparin Sodium 30 mg DAILY SC 06/20/24 10:00 UNV Fentanyl Citrate 250 ml @ 2.5 mls/hr Q24H IV 06/20/24 08:30 07/06/24 01:18 25 MLS/HR Enoxaparin Sodium 40 mg DAILY SC 06/20/24 10:00 07/02/24 11:15 40 MG Norepinephrine Bitartrate 250 ml @ 3.75 mls/hr Q24H IV 06/20/24 09:01 06/30/24 01:30 3.75 MLS/HR Propofol 100 ml @ 2.454 mls/ hr Q24H IV 06/22/24 15:45 07/06/24 07:20 4.908 MLS/HR Sodium Chloride 1,000 ml @ 100 mls/hr Q10H IV 06/23/24 09:30 07/05/24 22:53 100 MLS/HR Pantoprazole Sodium 40 mg DAILY IV 06/26/24 10:00 07/06/24 07:41 40 MG Enteral Nutritional Formula 1,000 ml 40ML/HR GT 06/26/24 14:00 07/06/24 06:11 1,000 ML Quetiapine Fumarate 100 mg BID PO 06/26/24 22:00 07/06/24 07:41 100 MG Methylprednisolone Sodium Succinate 40 mg Q12H IV 06/29/24 18:00 07/06/24 06:02 40 MG Hydralazine HCl 10 mg Q4HP PRN IV 06/29/24 16:45 Morphine Sulfate 2 mg Q4HPRN PRN IV 06/29/24 17:00 Dexmedetomidine HCl 400 mcg/ Dextrose 100 ml @ 4.09 mls/hr Q24H IV 06/29/24 17:15 06/29/24 17:15 4.09 MLS/HR Doxycycline Hyclate 100 ml @ 50 mls/hr Q12HR IV 07/04/24 10:00 07/05/24 22:33 50 MLS/HR Laboratory Results Laboratory Tests 07/06/24 03:15 Chemistry Test 07/06/24 03:15 Calcium Level 8.4 mg/dL (8.7-10.4) L Urinalysis Test 06/20/24 11:23 06/23/24 10:15 Urine Hyaline Casts Few /lpf (0 - 2) Urine Color Light-yellow (Yellow) Urine Clarity Clear (Clear) Urine pH 6.0 (5.0-9.0) Urine Specific [place] 1.013 (1.001-1.035) Urine Protein Negative (Negative) Urine Ketones Negative (Negative) Urine Blood 2+ /uL (Negative) H Urine Nitrite Negative (Negative) Urine Bilirubin Negative (Negative) Urine Urobilinogen Normal mg/dL (Negative) Urine Leukocyte Esterase Negative /uL (Negative) Urine RBC 115 /hpf (0 - 3) Urine Microscopic WBC 2 /HPF (0-3) Urine Squamous Epithelial Cells None seen /hpf (<5) Urine Bacteria None seen /hpf (None Seen) Urine Mucus Few (None Seen) Urine Creatinine 69.90 mg/dL (30.0-125.0) Urine Protein/Creatinine Ratio 0.21 Urine Sodium 58 mmol/L (40-220) Urine Glucose Normal mg/dL (Normal) Urine Total Protein 14.8 mg/dL (1-14) H Microbiology Microbiology Date/Time Source Procedure Growth Status 06/23/24 01:35 Urine - [place] Urine Culture - Final Complete 06/22/24 08:30 Nose MRSA Screen - Final Complete 06/20/24 08:23 Sputum Gram Stain - Final Complete 06/20/24 08:23 Sputum Respiratory Culture - Final Complete 06/20/24 05:19 Blood Blood Culture - Final NO GROWTH AFTER 5 DAYS OF INCUBATION. Complete Labs and/or images reviewed: Labs reviewed by me, Image(s) reviewed by me Assessment/Plan Assessment/Plan Impression: -acute on chronic hypoxic respiratory failure, now on mechanical ventilation -NSTEMI type 2 -rule out community-acquired pneumonia, Gram-positive/Gram-negative etiology -COPD with exacerbation -asthma -nicotine dependence -primary hypertension -atrial fibrillation -ventilator dependence with failed extubation. Plan: Events: No events overnight. Hemodynamically stable. Awaiting LTACH transfer. Continue CPAP daily -continue current ventilator settings -taper steroids -wean current sedation -continue antibiotic therapy -PUD, DVT prophylaxis -repeat labs in a.m. Social service consultation for LTAC placement Critical care time spent with patient discussing and formulating plan of care: 90 minutes. This does not include time spent performing procedures. This medical document was created using an electronic medical record system with [employer] computerized dictation system. Although this document has been carefully reviewed, there may still be some phonetic and typographical errors. These areas are purely typographical due to imperfections of the software programs, and do not reflect any compromise in the patient's medical care. Plan discussed with: Patient, Other (RN) Date of Service: Jul 06, 2024 Billing Provider: ESSENCE FONG NP Common Visit Codes: [id number] CARE 30-74 MIN ESSENCE FONG NP Jul 06, 2024 08:49
[2024-07-06 08:58] LABS: Base Excess -1.2 mmol/L (-2.0-3.0)
--- NOTE | 2024-07-06 23:00 | DVHPN2 ---
Progress Note - Dictate Date Seen: Jul 06, 2024 Medical Necessity Reason Pt with a Central, PICC or Fol: Yes The following are medically ne: Mena Catheter Reason for mena catheter: Strict I&O Subjective Patient seen and examined at bedside. Sedated, on mechanical ventilator. Trach in place Overnight events reviewed. vital signs Vital Sign Date Time Temp Pulse Resp B/P (MAP) Pulse Ox O2 Delivery O2 Flow Rate FiO2 07/06/24 22:05 51 18 103/66 (78) 98 40 07/06/24 19:00 98.1 208.6 07/06/24 09:38 Mechanical Ventilator Total Intake and Output 07/05/24 07/05/24 07/06/24 15:00 23:00 07:00 Intake Total 1287.264 ml 1505.356 ml 1486.264 ml Output Total 1025 ml 1000 ml Balance 1287.264 ml 480.356 ml 486.264 ml medications Current Medications Medications Dose Ordered Sig/Milvia Route Start Time Stop Time Status Last Admin Dose Admin Ondansetron HCl 4 mg Q4HP PRN IV 06/20/24 07:15 Nitroglycerin 0.4 mg Q5MINP PRN SL 06/20/24 07:15 Albuterol 2.5 mg Q4HR [facility] 06/20/24 10:00 07/06/24 22:01 2.5 MG Ipratropium [place] 0.5 mg Q4HPRN PRN [facility] 06/20/24 07:30 Cancel Budesonide 0.5 mg BID [facility] 06/20/24 10:00 07/06/24 22:01 0.5 MG Midazolam HCl 50 ml @ 1 mls/hr Q24H IV 06/20/24 07:45 07/06/24 22:02 7 MLS/HR Albuterol 2.5 mg Q4HPRN PRN [facility] 06/20/24 08:00 Cancel Ipratropium [place] 0.5 mg Q4HR [facility] 06/20/24 10:00 07/06/24 22:01 0.5 MG Ceftriaxone Sodium 50 ml @ 100 mls/hr DAILY@09 IV 06/20/24 09:00 07/06/24 07:41 100 MLS/HR Enoxaparin Sodium 30 mg DAILY SC 06/20/24 10:00 UNV Fentanyl Citrate 250 ml @ 2.5 mls/hr Q24H IV 06/20/24 08:30 07/06/24 20:07 25 MLS/HR Enoxaparin Sodium 40 mg DAILY SC 06/20/24 10:00 07/02/24 11:15 40 MG Norepinephrine Bitartrate 250 ml @ 3.75 mls/hr Q24H IV 06/20/24 09:01 06/30/24 01:30 3.75 MLS/HR Propofol 100 ml @ 2.454 mls/ hr Q24H IV 06/22/24 15:45 07/06/24 07:20 4.908 MLS/HR Pantoprazole Sodium 40 mg DAILY IV 06/26/24 10:00 07/06/24 07:41 40 MG Enteral Nutritional Formula 1,000 ml 40ML/HR GT 06/26/24 14:00 07/06/24 06:11 1,000 ML Quetiapine Fumarate 100 mg BID PO 06/26/24 22:00 07/06/24 22:02 100 MG Methylprednisolone Sodium Succinate 40 mg Q12H IV 06/29/24 18:00 07/06/24 16:53 40 MG Hydralazine HCl 10 mg Q4HP PRN IV 06/29/24 16:45 Morphine Sulfate 2 mg Q4HPRN PRN IV 06/29/24 17:00 Dexmedetomidine HCl 400 mcg/ Dextrose 100 ml @ 4.09 mls/hr Q24H IV 06/29/24 17:15 06/29/24 17:15 4.09 MLS/HR Doxycycline Hyclate 100 ml @ 50 mls/hr Q12HR IV 07/04/24 10:00 07/06/24 22:03 50 MLS/HR objective Gen.: Patient lying in bed in medical ICU. Sedated, on mechanical ventilator. Trach. Head: Normocephalic, atraumatic. Eyes: PERRLA. Ears: Normal external anatomy. Throat: Endotracheal tube and orogastric tube in place. Neck: Trach in place. Chest: Transmitted breath sounds bilaterally. Decreased air entry bilaterally. No wheezing. Bibasilar crackles. Cardiovascular: Positive S1, positive S2. Regular rate and rhythm. Abdomen: Positive bowel sounds in all 4 quadrants. Soft, nontender, nondistended. : Mena in place. Normal external genitalia. Rectal: Deferred. Skin: Warm, dry. Intact. Extremities: 2+ radial pulses bilaterally. No lower extremity edema. Neuro: Sedated. laboratory and microbiology Laboratory Tests 07/06/24 03:15 Test 07/06/24 03:15 Range/Units Serum Glucose 122 H 74-106 mg/dL Assessment/Plan Impression: Acute hypoxic respiratory failure On mechanical ventilator S/p tracheostomy COPD exacerbation Nicotine dependence Elevated troponin Atrial fibrillation Hypertension Events: Remains on vent support On AC mode; RR 18, VT 550, PEEP 5, FiO2 30 -->40% S/p trach Trach care Bloody secretions via trach - Lovenox held ABG reviewed, notable for alkalemia Sedated on Versed, Propofol Fentanyl drip for analgesia Seroquel 100 mg via NGT q.12 hours Continue bronchodilators Continue IV steroids Continue IV antibiotics IV fluids with 1/2 NS at 100 mL/hr. Off pressors, hemodynamically stable. Monitor hemodynamics Tube feeds for nutritional support GI consult for PEG placement vs. LTAC. SBT/ERIS Taper O2 as tolerated Trial of CPAP in AM. OK to increase PS to max 20 cmH2O to achieve tidal volume 500-600 mL. Awaiting LTAC bed. Labs and imaging reviewed. Rest of plan as noted below. Plan: s/p intubation on mechanical ventilator. On AC mode; RR 18, VT 550, PEEP 5, FiO2 40% Titrate FIO2 to keep O2 saturation above 90%. VAP bundle. Daily ABG and CXR while intubated Sedate for ventilator synchrony Continue bronchodilators. IV steroids Continue antibiotics. Start pressors if necessary to maintain a mean arterial blood pressure greater than 65 mmHg. Monitor renal function Monitor electrolytes. Supplement as necessary. Monitor ins and outs. GI prophylaxis - Protonix DVT prophylaxis - Lovenox on hold d/t trach site hemorrhage Prognosis: Poor given patient's multiple co-morbidities. Condition: Critical Rest of plan per hospitalist and other consultants. A total of 35 minutes of critical care time was spent reviewing the patient record, examining the patient, making a diagnostic and therapeutic plan, discussing this plan with the medical personnel, following up on diagnostic studies and following the patient for clinical stability excluding any and all procedures. At least 50% of this time was spent in direct, [id number] contact. Thank you, JENNIFER Espitia, for allowing me to participate in this patient's care. Further recommendations will depend on the patient's clinical course. Please do not hesitate to contact me if you have any questions or concerns. This medical document was created using an electronic medical record system with [employer] dictation system. Although these documentations are being carefully reviewed, there may still be some phonetic and typographical changes. The errors are purely typographical, due to imperfection on the software program, and do not reflect any compromise in the patient's medical care. Dietary Evaluation Review Comments: 1. If EN/GI accessible, Glucerna 45ml/hr, 65g pro 1296 kcal, satisfies pt's needs for Pro 80 %, Kcal 80%, in additon Propofol provides 110 kcal/100ml fat kcal Thus pt will have 1406 total kcal, supporting pt 's energy needs is increasedd to 86%. 2. If EN/GI not a option, NPO > 7 days, offer TPN per pharmacy 3. If pt off vent, passess speech eval, offer 2 g Na CCHO-60 low fat Low cholesterol diet. Expected Outcomes/Goals: gradually healed wounds, graudal weight loss, controlled blood glucose. Plan discussed with: Other (ADELINE Mcleod) Critical Care Time(min): 35 ILYA GARCES MD Jul 06, 2024 23:00
[2024-07-07] VITALS (79 sets, daily range): BP systolic 89–136; BP diastolic 52–89; PULSE 49–148; RESP 6–20; TEMP 92.7–98.4; O2SAT 88–100
[2024-07-07 03:41] LABS: Basophils # (auto) 0 10 ^3/uL (0-0.2); Basophils % (auto) 0.2 % (0.0-2.0); Eosinophils # (auto) 0 10 ^3/uL (0-0.8); Hematocrit 27.2 % (41.0-53.0); Hemoglobin 8.9 g/dL (13.5-17.5); Lymphocytes # (auto) 0.5 10 ^3/uL (0.4-5.4); Lymphocytes % (auto) 5.4 % (10.0-50.0); Mean Corpuscular Hemoglobin 28.8 pg (28.0-32.0); Mean Corpuscular Hgb Conc. 32.9 g/dL (32.0-36.0); Mean Corpuscular Volume 87.5 fL (80.0-100.0); Monocytes # (auto) 0.6 10 ^3/uL (0-1.3); Monocytes % (auto) 6.2 % (0.0-12.0); Neutrophils # (auto) 8.7 10 ^3/uL (1.6-8.6); Neutrophils % (auto) 88.2 % (37.0-80.0); Platelet Count (auto) 252 10^3/uL (140-450); Red Cell Distribution Width 16.6 % (11.8-14.3); White Blood Cell 9.8 10^3/uL (4.4-10.8)
[2024-07-07 03:55] LABS: Alanine Aminotransferase 26 U/L (7-40); Alkaline Phosphatase 49 U/L (46-116); Anion Gap 8 (5-15); BUN/Creatinine Ratio 41.7 (10.0-20.0); Blood Urea Nitrogen 15 mg/dL (9-23); Carbon Dioxide 23 mmol/L (20-31); Glucose 102 mg/dL (74-106); Magnesium 1.6 mg/dL (1.6-2.6); Potassium 3.6 mmol/L (3.5-5.1); Sodium 141 mmol/L (136-145)
[2024-07-07 03:56] LABS: Bilirubin, Total 0.3 mg/dL (0.2-1.0)
[2024-07-07 04:05] LABS: Aspartate Aminotransferase < 8 U/L (13-40); Calcium 8.6 mg/dL (8.7-10.4); Chloride 110 mmol/L (98-107); Total Protein 4.3 g/dL (5.7-8.2)
--- NOTE | 2024-07-07 05:19 | DVH ---
CHEST RADIOGRAPH Indication: resp failure Technique: Single frontal view of the chest was obtained Comparison: XY CHEST PORTABLE on DOS: 07/05/24 FINDINGS: Lines and Tubes: Tracheostomy tube is unchanged. The enteric tube courses below the left hemidiaphrag m and the tip extends outside the field of view. Left central venous catheter terminates in the super ior vena cava. Lungs: Bibasilar opacities noted. Pleura: No effusion. No pneumothorax. Cardiomediastinal contours: Stable. Bones: No acute osseous abnormality. IMPRESSION: 1. Bibasilar airspace disease, unchanged.
[2024-07-07] MEDS: MAGNESIUM SULFATE 1GM/100ML 100 ML IV ONE (06:36)
[2024-07-07 08:38] LABS: Base Excess -1.4 mmol/L (-2.0-3.0)
[2024-07-07] MEDS: LACTULOSE 20Gm/30ML SOLN JT SCH (09:31)
[2024-07-07] MEDS: BISACODYL 10 MG RECT SUPP PR ONE (09:32)
--- NOTE | 2024-07-07 09:37 | DVHPN2 ---
Subjective Patient chemically sedated Reviewed: Care Plan, H&P, Labs, Medications, Previous Orders, Radiology, Other (Consultations) Changes from previous H/P or p: No Changes General: Per HPI Objective Vitals Vital Signs Date Time Temp Pulse Resp B/P (MAP) Pulse Ox O2 Delivery O2 Flow Rate FiO2 07/07/24 08:45 98.4 59 18 92/55 (67) 96 209.1 07/07/24 08:12 40 07/07/24 07:48 Mechanical Ventilator+ Intake/Output Intake and Output 07/07/24 07:00 Intake Total 1938.056 ml Output Total 1775 ml Balance 163.056 ml Intake Oral 200 ml IV Total 1269.056 ml Tube Feeding 469 ml Output Urine Total 1775 ml General Appearance: mild distress, Other (Intubated and sedated) HEENT: Atraumatic Lungs: Clear to auscultation, Normal air movement, Other (Mechanical ventilation) Cardiovascular: Normal S1, Normal S2, Other (Bradycardia) Abdomen: Other (Distended abdomen) Genitourinary: Other (Bloom's catheter) Extremities: No edema, Normal pulses Neuro: Other (Unable to assess) Skin: Dry, Intact Psych/Mental Status: Other (Unable to assess) Medications Current Medications Medications Dose Ordered Sig/Milvia Route Start Time Stop Time Status Last Admin Dose Admin Ondansetron HCl 4 mg Q4HP PRN IV 06/20/24 07:15 Nitroglycerin 0.4 mg Q5MINP PRN SL 06/20/24 07:15 Albuterol 2.5 mg Q4HR NEB 06/20/24 10:00 07/07/24 06:31 2.5 MG Ipratropium [place] 0.5 mg Q4HPRN PRN [facility] 06/20/24 07:30 Cancel Budesonide 0.5 mg BID [facility] 06/20/24 10:00 07/07/24 06:31 0.5 MG Midazolam HCl 50 ml @ 1 mls/hr Q24H IV 06/20/24 07:45 07/07/24 07:35 7 MLS/HR Albuterol 2.5 mg Q4HPRN PRN [facility] 06/20/24 08:00 Cancel Ipratropium [place] 0.5 mg Q4HR [facility] 06/20/24 10:00 07/07/24 06:00 0.5 MG Ceftriaxone Sodium 50 ml @ 100 mls/hr DAILY@09 IV 06/20/24 09:00 07/07/24 07:24 100 MLS/HR Enoxaparin Sodium 30 mg DAILY SC 06/20/24 10:00 UNV Fentanyl Citrate 250 ml @ 2.5 mls/hr Q24H IV 06/20/24 08:30 07/07/24 05:07 25 MLS/HR Enoxaparin Sodium 40 mg DAILY SC 06/20/24 10:00 07/02/24 11:15 40 MG Norepinephrine Bitartrate 250 ml @ 3.75 mls/hr Q24H IV 06/20/24 09:01 06/30/24 01:30 3.75 MLS/HR Propofol 100 ml @ 2.454 mls/ hr Q24H IV 06/22/24 15:45 07/07/24 07:36 7.362 MLS/HR Pantoprazole Sodium 40 mg DAILY IV 06/26/24 10:00 07/07/24 07:25 40 MG Enteral Nutritional Formula 1,000 ml 40ML/HR GT 06/26/24 14:00 07/06/24 06:11 1,000 ML Quetiapine Fumarate 100 mg BID PO 06/26/24 22:00 07/07/24 07:25 100 MG Methylprednisolone Sodium Succinate 40 mg Q12H IV 06/29/24 18:00 07/07/24 05:18 40 MG Hydralazine HCl 10 mg Q4HP PRN IV 06/29/24 16:45 Morphine Sulfate 2 mg Q4HPRN PRN IV 06/29/24 17:00 Dexmedetomidine HCl 400 mcg/ Dextrose 100 ml @ 4.09 mls/hr Q24H IV 06/29/24 17:15 06/29/24 17:15 4.09 MLS/HR Doxycycline Hyclate 100 ml @ 50 mls/hr Q12HR IV 07/04/24 10:00 07/07/24 07:38 50 MLS/HR Lactulose 30 ml Q4HR JT 07/07/24 10:00 07/07/24 09:31 30 ML Metoclopramide HCl 10 mg Q8HR IV 07/07/24 14:00 Laboratory Results Laboratory Tests 07/07/24 03:10 Chemistry Test 07/07/24 03:10 Albumin 3.0 g/dL (3.2-4.8) L Calcium Level 8.6 mg/dL (8.7-10.4) L Magnesium Level 1.6 mg/dL (1.6-2.6) Total Protein 4.3 g/dL (5.7-8.2) L LFT Test 07/07/24 03:10 Alanine Aminotransferase (ALT) 26 U/L (7-40) Alkaline Phosphatase 49 U/L (46-116) Aspartate Amino Transferase (AST) < 8 U/L (13-40) L Total Bilirubin 0.3 mg/dL (0.2-1.0) Urinalysis Test 06/20/24 11:23 06/23/24 10:15 Urine Hyaline Casts Few /lpf (0 - 2) Urine Color Light-yellow (Yellow) Urine Clarity Clear (Clear) Urine pH 6.0 (5.0-9.0) Urine Specific [place] 1.013 (1.001-1.035) Urine Protein Negative (Negative) Urine Ketones Negative (Negative) Urine Blood 2+ /uL (Negative) H Urine Nitrite Negative (Negative) Urine Bilirubin Negative (Negative) Urine Urobilinogen Normal mg/dL (Negative) Urine Leukocyte Esterase Negative /uL (Negative) Urine RBC 115 /hpf (0 - 3) Urine Microscopic WBC 2 /HPF (0-3) Urine Squamous Epithelial Cells None seen /hpf (<5) Urine Bacteria None seen /hpf (None Seen) Urine Mucus Few (None Seen) Urine Creatinine 69.90 mg/dL (30.0-125.0) Urine Protein/Creatinine Ratio 0.21 Urine Sodium 58 mmol/L (40-220) Urine Glucose Normal mg/dL (Normal) Urine Total Protein 14.8 mg/dL (1-14) H Blood Gas Results Test 07/07/24 07:56 Arterial Blood pH 7.365 (7.350-7.450) FiO2 % 40.0 Microbiology Microbiology Date/Time Source Procedure Growth Status 06/23/24 01:35 Urine - [place] Urine Culture - Final Complete 06/22/24 08:30 Nose MRSA Screen - Final Complete 06/20/24 08:23 Sputum Gram Stain - Final Complete 06/20/24 08:23 Sputum Respiratory Culture - Final Complete 06/20/24 05:19 Blood Blood Culture - Final NO GROWTH AFTER 5 DAYS OF INCUBATION. Complete Labs and/or images reviewed: Labs reviewed by me, Image(s) reviewed by me Assessment/Plan Assessment/Plan Impression: -acute on chronic hypoxic respiratory failure, now on mechanical ventilation -NSTEMI type 2 -rule out community-acquired pneumonia, Gram-positive/Gram-negative etiology -COPD with exacerbation -asthma -nicotine dependence -primary hypertension -atrial fibrillation -ventilator dependence with failed extubation. Plan: Events: Patient has been without bowel movement. Abdomen distended. KUB ordered. Bowel regimen started. Given patient has no bed assigned at LTAC, GI consult for PEG placement given spontaneous breathing trials has been with multiple failures. -continue current ventilator settings -bowel regimen: Lactulose, Dulcolax suppository, prokinetic with Reglan -wean current sedation -continue antibiotic therapy -PUD, DVT prophylaxis -repeat labs in a.m. Social service consultation for LTAC placement Critical care time spent with patient discussing and formulating plan of care: 90 minutes. This does not include time spent performing procedures. This medical document was created using an electronic medical record system with [employer] dictation system. Although this document has been carefully reviewed, there may still be some phonetic and typographical errors. These areas are purely typographical due to imperfections of the software programs, and do not reflect any compromise in the patient's medical care. Plan discussed with: Patient, Other (RN) My Orders Orders - ESSENCE FONG NP Procedure Category Date Status Time Kub Abdomen Single XY 07/07/24 Logged View 08:57 Lactulose Oral PHA 07/07/24 In Process 10:00 Metoclopramide PHA 07/07/24 In Process Injection (Reglan 14:00 * [facility] [employer] CONS 07/07/24 Transmitted 08:59 Albuterol Medneb PHA 07/07/24 Verified (Ventolin Medneb) 12:00 Ipratropium Medneb PHA 07/07/24 Verified (Atrovent Medneb) 12:00 Date of Service: Jul 07, 2024 Billing Provider: ESSENCE FONG NP Common Visit Codes: [id number] CARE 30-74 MIN ESSENCE FONG NP Jul 07, 2024 09:37
--- NOTE | 2024-07-07 10:26 | DVH ---
Date: 07/07/2024 10:07 AM Examination: XY KUB ABDOMEN SINGLE VIEW History: ABDOMINAL DISTENSION Comparison: XY KUB ABDOMEN SINGLE VIEW on DOS: 07/07/23 TECHNIQUE: Frontal views of the abdomen was obtained. FINDINGS: Nonspecific bowel gas pattern. Nasogastric tube tip in the stomach. The lung bases are unremarkable. No acute osseous abnormality identified. IMPRESSION: Nonspecific bowel gas pattern with gaseous distention of the large bowel loops. Nasogastric tube in the stomach.
--- NOTE | 2024-07-07 10:58 | DVHCONRES ---
Date Seen: Jul 07, 2024 Resident Creating Document: RADHA MURRAY RESIDENT History of Present Illness 58-year-old male patient who presented with COPD exacerbation and was intubated on 06/20/2024, underwent re-intubation on 06/30 and tracheostomy was performed on 07/03/2024 after patient failed weaning trials. GI is consulted for PEG tube placement. Patient seen and examined at the bedside. Patient is supposed to go to [facility] today, GI we will standby at this time. Family History: Cardiovascular disease G8 MOTHER, Chronic obstructive pulmonary disease G8 MOTHER, G8 FATHER, FH: cancer G8 FATHER, Hypertension G8 SISTER Allergies: Coded Allergies: NO KNOWN ALLERGIES (Unverified , 12/20/22) Home Meds Active Scripts Levofloxacin Hemihydrate (LEVAQUIN 500 MG) 500 Mg Tab, 1 TAB PO DAILY for 5 Days, #5 TAB Prov:ESSENCE FONG KEEL PRESS OPERATOR 06/09/24 Prednisone (Prednisone) 20 Mg Tab, 20 MG PO DAILY for 5 Days, #5 MG Prov:ESSENCE FONG KEEL PRESS OPERATOR 06/09/24 Famotidine (PEPCID TABLET) 20 Mg Tb, 1 TAB PO DAILY for 10 Days, #10 TAB 5 Refills Prov:JOHNNY MURRY MD 06/04/24 Azithromycin (Zithromax Z-Loc) 250 Mg Tab, 250 MG PO BID for 3 Days, #6 TAB Prov:MERLIN YING RESIDENT 03/20/24 Acetaminophen (Acetaminophen) 325 Mg Tab, 650 MG PO Q6HP PRN for 10 Days, #80 TAB Prov:FELECIA MARTINEZ RESIDENT 01/25/24 Reported Medications Hctz (Hydrochlorothiazide) 25 Mg Tab, 1 TAB PO DAILY 01/24/24 Temazepam (Restoril) 15 Mg Cp, 1 CAP PO QHSP 07/06/23 Albuterol Sulfate (Albuterol Sulfate) 0.083 % Neb, 1 PUFF NEB Q4H PRN for SHORTNESS OF BREATH 12/21/22 Albuterol Sulfate (Albuterol Sulfate Hfa) 108 Mcg/Act Aer, 108 MCG INH Q4HP PRN for SHORTNESS OF BREATH 12/21/22 Budesonide-Formoterol Fumarate (Budesonide/Formoterol Fum 160-4.5 Mcg/Act) 1 Aer Aer, 2 PUFF INH BID 12/21/22 Current Medications Current Medications Medications (Trade) Dose Ordered Sig/Milvia Route PRN Reason Start Time Stop Time Status Last Admin Lactulose 30 ml Q4HR JT 07/07/24 10:00 07/07/24 09:31 Metoclopramide HCl (Reglan Injection) 10 mg Q8HR IV 07/07/24 14:00 Albuterol (Ventolin Medneb) 2.5 mg Q6HR NEB 07/07/24 12:00 Ipratropium [place] (Atrovent Medneb) 0.5 mg Q6HR NEB 07/07/24 12:00 Vital Signs Vital Signs Date Time Temp Pulse Resp B/P (MAP) Pulse Ox O2 Delivery O2 Flow Rate FiO2 07/07/24 10:18 52 18 92/57 (69) 99 40 07/07/24 10:00 Mechanical Ventilator+ 40 Trach Collar 07/07/24 10:00 97.7 207.9 Labs/Diagnostic Data Labs Test 07/07/24 10:30 07/07/24 07:56 07/07/24 03:10 07/06/24 07:14 Range/Units Blood Gas Specimen Type Arterial Blood Gas Sample Site Left radial Blood Gas Patient Temperature 37.0 Arterial Blood Date Drawn [id number] Arterial Blood pH 7.365 7.350-7.450 Arterial Blood Partial Pressure CO2 42.9 35.0-48.0 mmHg Arterial Blood Partial Pressure O2 81.8 L 83.0-108.0 mmHg Arterial Blood HCO3 24.0 21.0-28.0 mmol/L Arterial Blood Oxygen Saturation 95.2 94.0-98.0 % Arterial Blood Base Excess -1.4 -2.0-3.0 mmol/L Arterial Blood Oxyhemoglobin 94.8 94.0-98.0 % Arterial Blood Carboxyhemoglobin 0.3 L 0.5-1.5 % Arterial Blood Methemoglobin 0.1 0.0-1.5 % Godfrey Test Modified Blood Gas Total Hemoglobin 10.30 L 13.5-17.5 g/dL Blood Gas Set Respiration Rate 18.0 Blood Gas Modality Vent - ac FiO2 % 40.0 Blood Gas Tidal Volume 550.0 Blood Gas PEEP or CPAP 5.0 Specimen Drawn By White Blood Count 9.8 4.4-10.8 10^3/uL Red Blood Count 3.10 L 4.5-5.90 10^6/uL Hemoglobin 8.9 L 13.5-17.5 g/dL Hematocrit 27.2 L 41.0-53.0 % Mean Corpuscular Volume 87.5 80.0-100.0 fL Mean Corpuscular Hemoglobin 28.8 28.0-32.0 pg Mean Corpuscular Hemoglobin Concent 32.9 32.0-36.0 g/dL Red Cell Distribution Width 16.6 H 11.8-14.3 % Platelet Count 252 140-450 10^3/uL Mean Platelet Volume 7.8 6.9-10.8 fL Neutrophils (%) (Auto) 88.2 H 37.0-80.0 % Lymphocytes (%) (Auto) 5.4 L 10.0-50.0 % Monocytes (%) (Auto) 6.2 0.0-12.0 % Eosinophils (%) (Auto) 0.0 0.0-7.0 % Basophils (%) (Auto) 0.2 0.0-2.0 % Neutrophils # (Auto) 8.7 H 1.6-8.6 10 ^3/uL Lymphocytes # (Auto) 0.5 0.4-5.4 10 ^3/uL Monocytes # (Auto) 0.6 0-1.3 10 ^3/uL Eosinophils # (Auto) 0 0-0.8 10 ^3/uL Basophils # (Auto) 0 0-0.2 10 ^3/uL Nucleated Red Blood Cells 0.0 % Sodium Level 141 136-145 mmol/L Potassium Level 3.6 3.5-5.1 mmol/L Chloride Level 110 H 98-107 mmol/L Carbon Dioxide Level 23 20-31 mmol/L Anion Gap 8 5-15 Blood Urea Nitrogen 15 9-23 mg/dL Creatinine 0.36 L 0.700-1.30 mg/dL Glomerular Filtration Rate Calc 130 >90 mL/min BUN/Creatinine Ratio 41.7 H 10.0-20.0 Serum Glucose 102 74-106 mg/dL Calcium Level 8.6 L 8.7-10.4 mg/dL Total Bilirubin 0.3 0.2-1.0 mg/dL Aspartate Amino Transferase (AST) < 8 L 13-40 U/L Alanine Aminotransferase (ALT) 26 7-40 U/L Alkaline Phosphatase 49 46-116 U/L Total Protein 4.3 L 5.7-8.2 g/dL Albumin 3.0 L 3.2-4.8 g/dL Blood Gas Spontaneous Rate 18 Blood Gas Inspiratory Pressure 33.0 Bl Gas Inspiratory/Expiratory Ratio 1:2.9 Test 07/04/24 23:19 07/03/24 03:35 06/29/24 19:13 06/23/24 11:07 Range/Units POC Glucose 133 H 70-106 mg/dl Prothrombin Time 10.2 9.3-11.8 sec Prothrombin Time INR 0.96 0.9-1.15 Activated Partial Thromboplast Time 27.2 24.5-34.5 SEC Blood Gas Critical Value Read Back Yes Blood Gas Notified Whom Rubén main md Blood Gas Notified Time [id number] Blood Gas Notified By Anastacia lima Blood Gas Pressure Support 8 Test 06/23/24 10:15 06/23/24 03:10 06/20/24 19:30 06/20/24 11:23 Range/Units Urine Color Light-yellow Yellow Urine Clarity Clear Clear Urine pH 6.0 5.0-9.0 Urine Specific [place] 1.013 1.001-1.035 Urine Protein Negative Negative Urine Ketones Negative Negative Urine Blood 2+ H Negative /uL Urine Nitrite Negative Negative Urine Bilirubin Negative Negative Urine Urobilinogen Normal Negative mg/dL Urine Leukocyte Esterase Negative Negative /uL Urine RBC 115 0 - 3 /hpf Urine Microscopic WBC 2 0-3 /HPF Urine Squamous Epithelial Cells None seen <5 /hpf Urine Bacteria None seen None Seen /hpf Urine Mucus Few None Seen Urine Creatinine 69.90 30.0-125.0 mg/dL Urine Protein/Creatinine Ratio 0.21 Urine Sodium 58 40-220 mmol/L Urine Glucose Normal Normal mg/dL Urine Total Protein 14.8 H 1-14 mg/dL Phosphorus Level 5.4 H 2.4-5.1 mg/dL Troponin I High Sensitivity 471 *H </=54 ng/L Urine Hyaline Casts Few 0 - 2 /lpf Test 06/20/24 11:00 06/20/24 05:20 06/20/24 05:19 Range/Units Influenza Type A Antigen Negative Negative Influenza Type B Antigen Negative Negative SARS-CoV-2 Antigen (Rapid) Negative NEGATIVE Venous Blood pH 7.126 *L 7.320-7.430 Venous Blood pCO2 at Patient Temp 81.7 *H 38.0-54.0 mmHg Venous Blood pO2 at Patient Temp 119.0 H 23.0-48.0 mmHg Venous Blood HCO3 26.3 22.0-29.0 mmol/L Venous Blood Base Excess -5.1 L -2.0-3.0 mmol/L Blood Gas EPAP 5 Blood Gas IPAP 12 D-Dimer, Quantitative 0.28 0.0-0.49 mg/L FEU Lactic Acid Level 1.7 0.4-2.0 mmol/L B-Type Natriuretic Peptide 30.81 0-100 pg/mL Thyroid Stimulating Hormone (TSH) 10.08 H 0.55-4.78 uIU/mL Free Thyroxine (T4) Calculated 0.95 0.89-1.76 ng/dL Total Triiodothyronine (TT3) 1.07 0.60-1.81 ng/mL Microbiology Date/Time Source Procedure Growth Status 06/23/24 01:35 Urine - [place] Urine Culture - Final Complete 06/22/24 08:30 Nose MRSA Screen - Final Complete 06/20/24 08:23 Sputum Gram Stain - Final Complete 06/20/24 08:23 Sputum Respiratory Culture - Final Complete 06/20/24 05:19 Blood Blood Culture - Final NO GROWTH AFTER 5 DAYS OF INCUBATION. Complete Assessment Acute hypoxic respiratory failure s/p tracheostomy 2/3 Acute COPD exacerbation NSTEMI II Chronic nicotine dependence Plan: Patient has a available bed at [facility]. Patient will probably be transferred today. GI will standby, we will proceed with PEG tube placement the patient does not gets transferred. Plan discussed with Dr. Lu Plan discussed with: Other (nurse) RADHA MURRAY RESIDENT Jul 07, 2024 10:58
[2024-07-07] MEDS: ALBUTEROL SULF 2.5 MG/0.5ML(0.5%) NEB SOLN NEB SCH (12:07)
[2024-07-07] MEDS: IPRATROPIUM BROM 0.5 MG/2.5ML INH SOL NEB SCH (12:08)
[2024-07-07] MEDS: METOCLOPRAMIDE HCL 5MG/ml INJ 2ml VIAL IV SCH (13:52)
[2024-07-07] MEDS: FLEET ENEMA(ADULT) 135 ML PR ONE (13:52)
--- NOTE | 2024-07-07 23:15 | DVHPN2 ---
Progress Note - Dictate Date Seen: Jul 07, 2024 Medical Necessity Reason Pt with a Central, PICC or Fol: Yes The following are medically ne: Mena Catheter Reason for mena catheter: Strict I&O Subjective Patient seen and examined at bedside. Sedated, on mechanical ventilator. Trach in place Overnight events reviewed. vital signs Vital Sign Date Time Temp Pulse Resp B/P (MAP) Pulse Ox O2 Delivery O2 Flow Rate FiO2 07/07/24 16:30 56 18 107/64 (78) 98 07/07/24 15:35 40 07/07/24 15:15 97.7 97.7 07/07/24 10:00 Mechanical Ventilator+ 40 Trach Collar Total Intake and Output 07/06/24 07/06/24 07/07/24 15:00 23:00 07:00 Intake Total 543.264 ml 660.896 ml 733.896 ml Output Total 1150 ml 625 ml Balance 543.264 ml -489.104 ml 108.896 ml medications Current Medications Medications Dose Ordered Sig/Milvia Route Start Time Stop Time Status Last Admin Dose Admin Ipratropium [place] 0.5 mg Q4HPRN PRN NEB 06/20/24 07:30 Cancel Albuterol 2.5 mg Q4HPRN PRN NEB 06/20/24 08:00 Cancel Enoxaparin Sodium 30 mg DAILY SC 06/20/24 10:00 UNV objective Gen.: Patient lying in bed in medical ICU. Sedated, on mechanical ventilator. Trach. Head: Normocephalic, atraumatic. Eyes: PERRLA. Ears: Normal external anatomy. Throat: Endotracheal tube and orogastric tube in place. Neck: Trach in place. Chest: Transmitted breath sounds bilaterally. Decreased air entry bilaterally. No wheezing. Bibasilar crackles. Cardiovascular: Positive S1, positive S2. Regular rate and rhythm. Abdomen: Positive bowel sounds in all 4 quadrants. Soft, nontender, nondistended. : Mena in place. Normal external genitalia. Rectal: Deferred. Skin: Warm, dry. Intact. Extremities: 2+ radial pulses bilaterally. No lower extremity edema. Neuro: Sedated. laboratory and microbiology Laboratory Tests 07/07/24 03:10 Test 07/07/24 03:10 Range/Units Serum Glucose 102 74-106 mg/dL Assessment/Plan Impression: Acute hypoxic respiratory failure On mechanical ventilator S/p tracheostomy COPD exacerbation Nicotine dependence Elevated troponin Atrial fibrillation Hypertension Events: Remains on vent support On AC mode; RR 18, VT 550, PEEP 5, FiO2 40% S/p trach Trach care Bloody secretions via trach - Lovenox held ABG reviewed, compensated Sedated on Versed, Propofol Fentanyl drip for analgesia Seroquel 100 mg via NGT q.12 hours Continue bronchodilators Continue IV steroids Continue IV antibiotics IV fluids with 1/2 NS at 100 mL/hr. Off pressors, hemodynamically stable. Monitor hemodynamics Tube feeds for nutritional support GI consult for PEG placement vs. LTAC. Difficult to taper sedation due to anxiety SBT/ERIS Taper O2 as tolerated CPAP OK to increase PS to max 20 cmH2O to achieve tidal volume 500-600 mL. Awaiting LTAC bed. Labs and imaging reviewed. Rest of plan as noted below. Plan: s/p intubation on mechanical ventilator. On AC mode; RR 18, VT 550, PEEP 5, FiO2 40% Titrate FIO2 to keep O2 saturation above 90%. VAP bundle. Daily ABG and CXR while intubated Sedate for ventilator synchrony Continue bronchodilators. IV steroids Continue antibiotics. Start pressors if necessary to maintain a mean arterial blood pressure greater than 65 mmHg. Monitor renal function Monitor electrolytes. Supplement as necessary. Monitor ins and outs. GI prophylaxis - Protonix DVT prophylaxis - Lovenox on hold d/t trach site hemorrhage Prognosis: Poor given patient's multiple co-morbidities. Condition: Critical Rest of plan per hospitalist and other consultants. A total of 35 minutes of critical care time was spent reviewing the patient record, examining the patient, making a diagnostic and therapeutic plan, discussing this plan with the medical personnel, following up on diagnostic studies and following the patient for clinical stability excluding any and all procedures. At least 50% of this time was spent in direct, [id number] contact. Thank you, JENNIFER Espitia, for allowing me to participate in this patient's care. Further recommendations will depend on the patient's clinical course. Please do not hesitate to contact me if you have any questions or concerns. This medical document was created using an electronic medical record system with [employer] system. Although these documentations are being carefully reviewed, there may still be some phonetic and typographical changes. The errors are purely typographical, due to imperfection on the software program, and do not reflect any compromise in the patient's medical care. Dietary Evaluation Review Comments: 1. If EN/GI accessible, Glucerna 45ml/hr, 65g pro 1296 kcal, satisfies pt's needs for Pro 80 %, Kcal 80%, in additon Propofol provides 110 kcal/100ml fat kcal Thus pt will have 1406 total kcal, supporting pt 's energy needs is increasedd to 86%. 2. If EN/GI not a option, NPO > 7 days, offer TPN per pharmacy 3. If pt off vent, passess speech eval, offer 2 g Na CCHO-60 low fat Low cholesterol diet. Expected Outcomes/Goals: gradually healed wounds, graudal weight loss, controlled blood glucose. Plan discussed with: Other (ADELIEN Mcleod) Critical Care Time(min): 35 ILYA GARCES MD Jul 07, 2024 23:15
== END 2024-07-07 16:56 | DRG 4 ==
LOC: ER 05:10 → EDBD 05:10 → TELE 07:06 → ICU WEST 06-22 08:10
PROVIDERS: ADMIT Internal Medicine; ATTEND Nurse Practitioner Acute Care
PROC: 5A1955Z Respiratory Ventilation, Greater than 96 Consecutive Hours (ICD-10-PCS; principal; 2024-06-20)
PROC: 0BH17EZ Insertion of Endotracheal Airway into Trachea, Via Natural or Artificial Opening (ICD-10-PCS; 2024-06-20)
PROC: 5A09357 Assistance with Respiratory Ventilation, Less than 24 Consecutive Hours, Continuous Positive Airway Pressure (ICD-10-PCS; 2024-06-20)
PROC: 02HV33Z Insertion of Infusion Device into Superior Vena Cava, Percutaneous Approach (ICD-10-PCS; 2024-06-20)
PROC: 5A1955Z Respiratory Ventilation, Greater than 96 Consecutive Hours (ICD-10-PCS; 2024-06-29)
PROC: 0BH17EZ Insertion of Endotracheal Airway into Trachea, Via Natural or Artificial Opening (ICD-10-PCS; 2024-06-29)
PROC: 0B110F4 Bypass Trachea to Cutaneous with Tracheostomy Device, Open Approach (ICD-10-PCS; 2024-07-03)
DX: J15.69 Pneumonia due to other Gram-negative bacteria (principal); J96.21 Acute and chronic respiratory failure with hypoxia; I21.A1 Myocardial infarction type 2; J44.1 Chronic obstructive pulmonary disease with (acute) exacerbation; J44.0 Chronic obstructive pulmonary disease with (acute) lower respiratory infection; E87.1 Hypo-osmolality and hyponatremia; Z99.11 Dependence on respirator [ventilator] status; N17.9 Acute kidney failure, unspecified; J15.9 Unspecified bacterial pneumonia; Z20.822 Contact with and (suspected) exposure to COVID-19; E78.5 Hyperlipidemia, unspecified; F17.210 Nicotine dependence, cigarettes, uncomplicated; G89.29 Other chronic pain; R73.03 Prediabetes; M54.9 Dorsalgia, unspecified; I10 Essential (primary) hypertension; I48.91 Unspecified atrial fibrillation; F41.9 Anxiety disorder, unspecified; K21.9 Gastro-esophageal reflux disease without esophagitis; Z99.81 Dependence on supplemental oxygen; Z79.1 Long term (current) use of non-steroidal anti-inflammatories (NSAID); Z79.899 Other long term (current) drug therapy; Z80.9 Family history of malignant neoplasm, unspecified; Z82.49 Family history of ischemic heart disease and other diseases of the circulatory system; Z82.5 Family history of asthma and other chronic lower respiratory diseases
CPT/HCPCS: 36415; 36556; 36600; 71045; 74018; 76775; 80048; 80053; 81001; 82570; 82805; 82962; 83605; 83735; 83880; 84100; 84156; 84300; 84439; 84443; 84480; 84484; 85025; 85379; 85610; 85730; 87040; 87070; 87081; 87086; 87205; 87426; 87804; 93005; 93306; 94002; 94003; 94640; 94644; 94660; 96365; 96367; 96375; 99291; G0378; J0131; J0690; J0692; J2250; J2470; J2704; J3480; J3490; J7060

== ENCOUNTER 2024-12-16 20:29 | Inpatient (IN) | payer OTHER, MEDICAID ==
[~2024-12-16] VITALS: Ht 170.2 cm; Wt 56.3 kg
[2024-12-16 20:00] VITALS: PULSE 64
--- NOTE | 2024-12-16 20:58 | ED.PDOC ---
History of Present Illness HPI Comments 59 y/o M is BIBA from private residence for c/c dislodged G-tube. Per EMS report, patient's sister called after patient dislodged his G-tube following a coughing fit, earlier, today. Patient is stated to have tube placed following a unspecified medical event he underwent in the last 2-3x months. No further acute symptoms reported at this time. Chief Complaint: Tube Replacement Time Seen by MD: 20:40 Primary Care Provider: UNKNOWN NAME Reviewed Notes: Nurses Notes, Motion Picture Set Up Worker Notes, Medications, Allergies Allergies: Coded Allergies: NO KNOWN ALLERGIES (Unverified , 12/20/22) Home Meds Active Scripts Levofloxacin Hemihydrate (LEVAQUIN 500 MG) 500 Mg Tab, 1 TAB PO DAILY for 5 Da ys, #5 TAB Prov:ESSENCE FONG RN IV THERAPY 06/09/24 Prednisone (Prednisone) 20 Mg Tab, 20 MG PO DAILY for 5 Days, #5 MG Prov:ESSENCE FONG RN IV THERAPY 06/09/24 Famotidine (PEPCID TABLET) 20 Mg Tb, 1 TAB PO DAILY for 10 Days, #10 TAB 5 Refills Prov:JOHNNY MURRY MD 06/04/24 Azithromycin (Zithromax Z-Loc) 250 Mg Tab, 250 MG PO BID for 3 Days, #6 TAB Prov:MERLIN YING RESIDENT 03/20/24 Acetaminophen (Acetaminophen) 325 Mg Tab, 650 MG PO Q6HP PRN for 10 Days, #80 TAB Prov:FELECIA MARTINEZ RESIDENT 01/25/24 Reported Medications Hctz (Hydrochlorothiazide) 25 Mg Tab, 1 TAB PO DAILY 01/24/24 Temazepam (Restoril) 15 Mg Cp, 1 CAP PO QHSP 07/06/23 Albuterol Sulfate (Albuterol Sulfate) 0.083 % Neb, 1 PUFF NEB Q4H PRN for SHORTNESS OF BREATH 12/21/22 Albuterol Sulfate (Albuterol Sulfate Hfa) 108 Mcg/Act Aer, 108 MCG INH Q4HP PRN for SHORTNESS OF BREATH 12/21/22 Budesonide-Formoterol Fumarate (Budesonide/Formoterol Fum 160-4.5 Mcg/Act) 1 Aer Aer, 2 PUFF INH BID 12/21/22 Information Source: Patient, Emergency Med Personnel Mode of Arrival: EMS Severity: Moderate Timing: Hours Duration: Since onset Prehospital treatment: 12 Lead EKG, Boat Tester Past Medical History PAST MEDICAL HISTORY: AFIB, Asthma, COPD, HTN Surgical History: Appendectomy Family History Family History: Family hx of Cancer Social History Smoker: Cigarettes Alcohol: Denies ETOH Use Drugs: Denies Drug Use Lives In: Home All Other Systems: Reviewed and Negative (Comprehensive systems review obtained and negative except for what is stated in the HPI.) Physical Exam General Appearance: No Apparent Distress, Normal HEENT: Normal ENT Inspection, Pharynx Normal, TMs Normal, Other (indwelling trachea stoma ) Neck: Full Range of Motion, Non-Tender, Normal, Normal Inspection Respiratory: Chest Non-Tender, Lungs Clear, No Accessory Muscle Use, No Respiratory Distress, Normal Breath Sounds Cardiovascular: No Edema, No JVD, No Murmur, No Gallop, Normal Peripheral Pulses, Regular Rate/Rhythm Breast Exam: Deferred Gastrointestinal: No Organomegaly, Non Tender, No Pulsatile Mass, Normal Bowel Sounds, Soft, Other (recent closed abdominal surgical scarr; closed G-tube stoma ) Genitalia: Deferred Pelvic: Deferred Rectal: Deferred Extremities: No calf tenderness, Normal capillary refill, Normal inspection, Normal range of motion, Non-tender, No pedal edema Musculoskeletal : Apperance: Normal Neurologic: Alert, injury prevention coordinator II-XII nml as Tested, No Motor Deficits, Normal Affect, Normal Mood, No Sensory Deficits Cerebellar Function: Normal Reflexes: Normal Skin: Dry, Normal Color, Warm Lymphatic: No Adenopathy Was a procedure done? Was a procedure done?: No Differential Dx Considerations may include: dislodged G tube X-Ray, Labs, Meds, VS Vital Signs Date Time Temp Pulse Resp B/P (MAP) Pulse Ox O2 Delivery O2 Flow Rate FiO2 12/16/24 22:48 80 14 126/84 12/16/24 22:21 80 14 126/84 (98) 96 12/16/24 21:58 Room Air* 0 21 12/16/24 20:49 99.2 97 20 125/84 (98) 94 99.2 Lab Test 12/16/24 20:56 Range/Units White Blood Count 10.4 4.4-10.8 10^3/uL Red Blood Count 5.53 4.5-5.90 10^6/uL Hemoglobin 12.8 L 13.5-17.5 g/dL Hematocrit 39.0 L 41.0-53.0 % Mean Corpuscular Volume 70.4 L 80.0-100.0 fL Mean Corpuscular Hemoglobin 23.1 L 28.0-32.0 pg Mean Corpuscular Hemoglobin Concent 32.8 32.0-36.0 g/dL Red Cell Distribution Width 18.9 H 11.8-14.3 % Platelet Count 419 140-450 10^3/uL Mean Platelet Volume 8.2 6.9-10.8 fL Neutrophils (%) (Auto) 59.7 37.0-80.0 % Lymphocytes (%) (Auto) 23.4 10.0-50.0 % Monocytes (%) (Auto) 9.8 0.0-12.0 % Eosinophils (%) (Auto) 5.5 0.0-7.0 % Basophils (%) (Auto) 1.6 0.0-2.0 % Neutrophils # (Auto) 6.2 1.6-8.6 10 ^3/uL Lymphocytes # (Auto) 2.4 0.4-5.4 10 ^3/uL Monocytes # (Auto) 1.0 0-1.3 10 ^3/uL Eosinophils # (Auto) 0.6 0-0.8 10 ^3/uL Basophils # (Auto) 0.2 0-0.2 10 ^3/uL Nucleated Red Blood Cells 0.1 % Prothrombin Time 11.4 9.3-11.8 sec Prothrombin Time INR 1.08 0.9-1.15 Activated Partial Thromboplast Time 26.8 24.5-34.5 SEC Sodium Level 140 136-145 mmol/L Potassium Level 2.8 L 3.5-5.1 mmol/L Chloride Level 100 98-107 mmol/L Carbon Dioxide Level 27 20-31 mmol/L Anion Gap 13 5-15 Blood Urea Nitrogen 17 9-23 mg/dL Creatinine 1.58 H 0.700-1.30 mg/dL Glomerular Filtration Rate Calc 50 >90 mL/min BUN/Creatinine Ratio 10.8 10.0-20.0 Serum Glucose 78 74-106 mg/dL Calcium Level 14.6 *H 8.7-10.4 mg/dL Magnesium Level 1.4 L 1.6-2.6 mg/dL Total Bilirubin 0.3 0.2-1.0 mg/dL Aspartate Amino Transferase (AST) 14 13-40 U/L Alanine Aminotransferase (ALT) < 9 7-40 U/L Alkaline Phosphatase 103 46-116 U/L Total Protein 6.7 5.7-8.2 g/dL Albumin 4.0 3.2-4.8 g/dL Current Medications Medications (Trade) Dose Ordered Sig/Milvia Route Start Time Stop Time Status Last Admin Sodium Chloride 1,000 ml @ 1,000 mls/hr Q1H ONCE IVB 12/16/24 21:00 12/16/24 21:59 DC 12/16/24 21:00 Morphine Sulfate 4 mg ONCE ONCE IV 12/16/24 22:45 12/16/24 22:46 DC 12/16/24 22:48 Ondansetron HCl (Zofran) 4 mg ONCE ONCE IV 12/16/24 22:45 12/16/24 22:46 DC 12/16/24 22:47 Time of 1ST Reevaluation: 21:20 Reevaluation 1ST: Unchanged Patient Education/Counseling: Treatment Family Education/Counseling: No Family Present SEPSIS Sepsis Screen Physician Orders Chest Portable (12/16/24 20:49) Electrocardigram (12/16/24 20:49) Vital Signs Date Time Temp Pulse Resp B/P (MAP) Pulse Ox O2 Delivery O2 Flow Rate FiO2 12/16/24 22:48 80 14 126/84 12/16/24 22:21 80 14 126/84 (98) 96 12/16/24 21:58 Room Air* 0 21 12/16/24 20:49 99.2 97 20 125/84 (98) 94 99.2 Laboratory Tests Test 12/16/24 20:56 White Blood Count 10.4 10^3/uL (4.4-10.8) Medications Medications Dose Ordered Sig/Milvia Route Start Time Stop Time Status Last Admin Dose Admin Morphine Sulfate 4 mg ONCE ONCE IV 12/16/24 22:45 12/16/24 22:46 DC 12/16/24 22:48 Ondansetron HCl 4 mg ONCE ONCE IV 12/16/24 22:45 12/16/24 22:46 DC 12/16/24 22:47 Sodium Chloride 1,000 ml @ 1,000 mls/hr Q1H ONCE IVB 12/16/24 21:00 12/16/24 21:59 DC 12/16/24 21:00 Departure 1 Departure Time of Disposition: 23:19 Impression: Primary Impression: Acute renal injury Additional Impressions: Dehydration Vomiting and diarrhea Dislodged gastrostomy tube Hypercalcemia Hypokalemia Disposition: ADMITTED INPATIENT Admit to: Med Surg Condition: Guarded Discharged With: Self Comments Dislodged Gastrostomy Tube with Dehydration and Acute Kidney Injury Chief Complaint: Dislodged gastrostomy tube with vomiting and diarrhea History of Present Illness: Patient is a 59-year-old male who was brought to the ED from home by EMS after his sister reported that his gastrostomy tube was dislodged approximately 4 hours prior to arrival. The patient has a history of tracheostomy and gastrostomy tube placement approximately 2 months ago following an aspiration event that required prolonged intubation. Today, the patient reports experiencing vomiting and diarrhea. He denies any abdominal pain. The patient lives with his sister who serves as his caregiver. There is concern for dehydration and electrolyte abnormalities given his gastrointestinal symptoms and inability to maintain adequate oral intake following the dislodgement of his feeding tube. Review of Systems: Constitutional: Reports fatigue, denies fever or chills. HEENT: Tracheostomy in place, patent. Respiratory: No shortness of breath or cough reported. Cardiovascular: No chest pain or palpitations. Gastrointestinal: Positive for vomiting and diarrhea. Negative for abdominal pain, constipation, or blood in stool. Genitourinary: No dysuria or hematuria reported. Musculoskeletal: No joint pain or swelling. Neurological: No headache, dizziness, or altered mental status. Skin: No rashes or lesions except for surgical sites. Medications: Unknown - complete medication list not available at time of evaluation Allergies: No known drug allergies documented Past Medical History: History of aspiration requiring prolonged intubation Tracheostomy dependence G-tube dependence Other medical history not available at time of evaluation Past Surgical History: Tracheostomy placement approximately 2 months ago Gastrostomy tube placement approximately 2 months ago Recent exploratory laparotomy (timing unclear, but recent scar noted) Social History: Lives with sister who serves as caregiver Other social history details not available Physical Exam: General: 59-year-old male in no acute distress. HEENT: Tracheostomy in place and intact. Abdomen: Recent appearing exploratory laparotomy scar. Visible closed area where G-tube stoma was previously located. No active drainage or signs of infection at the site. Lab Results: CBC: - Hemoglobin: 12.8 g/dL (borderline anemic) - Hematocrit: 39% Chemistry: - BUN: 17 mg/dL (normal) - Creatinine: 1.58 mg/dL (elevated, indicating acute kidney injury) - Potassium: 2.8 mEq/L (low) - Calcium: 14.6 mg/dL (significantly elevated) Imaging and Other Relevant Results: Chest X-ray: Pulmonary nodule noted, no acute pathology identified Medical Decision Making: Summary Statement: 59-year-old male with history of tracheostomy and gastrostomy tube placement 2 months ago following aspiration event presents with dislodged G-tube for approximately 4 hours, accompanied by vomiting and diarrhea, resulting in dehydration, acute kidney injury, hypokalemia, and hypercalcemia. Problem List: 1) Dislodged gastrostomy tube 2) Dehydration 3) Acute kidney injury 4) Hypokalemia 5) Hypercalcemia 6) Vomiting and diarrhea 7) Pulmonary nodule 8) Tracheostomy dependence Differential Diagnosis: For acute kidney injury: pre-renal azotemia due to dehydration vs. acute tubular necrosis vs. medication-induced nephropathy. For hypercalcemia: primary hyperparathyroidism vs. malignancy vs. medication-induced vs. granulomatous disease. For pulmonary nodule: benign granuloma vs. primary lung malignancy vs. metastatic disease. ED Course: Patient received IV fluid resuscitation and potassium replacement. G- tube site was assessed and found to be closed. Laboratory studies revealed acute kidney injury, hypokalemia, and significant hypercalcemia. Chest X-ray showed incidental pulmonary nodule without acute pathology. Assessment and Plan: 1. Dislodged Gastrostomy Tube: - Surgical consultation for evaluation and potential replacement of gastrostomy tube - NPO status until surgical evaluation - Monitor for signs of peritonitis or infection at previous G-tube site 2. Dehydration with Acute Kidney Injury: - Admit for IV fluid resuscitation - Serial BUN/Creatinine monitoring - Strict intake and output monitoring - Avoid nephrotoxic medications 3. Electrolyte Abnormalities: - Hypokalemia: IV potassium replacement with serial monitoring - Hypercalcemia: IV hydration, consider calcitonin if severe symptoms develop - Further workup for etiology of hypercalcemia including PTH, PTHrP, Vitamin D levels 4. Vomiting and Diarrhea: - Symptomatic management - Consider infectious workup including stool studies if diarrhea persists - Monitor for improvement with hydration 5. Pulmonary Nodule: - Incidental finding requiring outpatient follow-up - Recommend chest CT for further characterization 6. Disposition: - Admit to Medicine service - Surgical consultation for G-tube evaluation - Nutrition consultation for feeding recommendations - Case management for discharge planning and home care needs Additional Notes: Patient requires admission for management of dehydration, electrolyte abnormalities, and G-tube replacement evaluation. Billing Information: ICD-10: K94.13 - Dislodgement of gastrostomy tube ICD-10: N17.9 - Acute kidney failure, unspecified ICD-10: E87.6 - Hypokalemia ICD-10: E83.52 - Hypercalcemia ICD-10: R11.10 - Vomiting, unspecified ICD-10: R19.7 - Diarrhea, unspecified Critical Care Note Critical Care Time?: Yes (35 min-critical care time only) Critical care comment: Total critical care time: Approximately 36 minutes Due to a high probability of clinically significant, life threatening deterioration, the patient required my highest level of preparedness to intervene emergently and I personally spent this critical care time directly and personally managing the patient. This critical care time included obtaining a history; examining the patient; pulse oximetry; ordering and review of studies; arranging urgent treatment with development of a management plan; evaluation of patient's response to treatment; frequent reassessment; and, discussions with other providers. This critical care time was performed to assess and manage the high probability of imminent, life-threatening deterioration that could result in multi-organ failure. It was exclusive of separately billable procedures and treating other patients. Stability Stability form required: No Heart Score Heart Score: Heart Score Response (Comments) Value History N/A 0 EKG N/A 0 Age N/A 0 Risk Factors N/A 0 Troponin N/A 0 Total 0 I personally scribed for LAITH MASTERSON MD ([email or web address]) on 12/16/24 at 20:58. Electronically submitted by Alon Moody ([email or web address]). LAITH MASTERSON MD Dec 16, 2024 20:58
[2024-12-16] MEDS: SODIUM CHLORIDE 0.9% 1,000 ML IVB ONE (21:00)
[2024-12-16 21:18] LABS: Hematocrit 39.0 % (41.0-53.0); Hemoglobin 12.8 g/dL (13.5-17.5); Mean Corpuscular Hemoglobin 23.1 pg (28.0-32.0); Mean Corpuscular Volume 70.4 fL (80.0-100.0); Nucleated Red Blood Cells % 0.1 %
[2024-12-16 21:28] LABS: Albumin 4.0 g/dL (3.2-4.8); Alkaline Phosphatase 103 U/L (46-116); Anion Gap 13 (5-15); BUN/Creatinine Ratio 10.8 (10.0-20.0); Bilirubin, Total 0.3 mg/dL (0.2-1.0); Blood Urea Nitrogen 17 mg/dL (9-23); Carbon Dioxide 27 mmol/L (20-31); Chloride 100 mmol/L (98-107); Glucose 78 mg/dL (74-106); Sodium 140 mmol/L (136-145); Total Protein 6.7 g/dL (5.7-8.2)
[2024-12-16 21:30] LABS: Alanine Aminotransferase < 9 U/L (7-40); Potassium 2.8 mmol/L (3.5-5.1)
[2024-12-16 21:31] LABS: Magnesium 1.4 mg/dL (1.6-2.6)
[2024-12-16 21:32] LABS: Calcium 14.6 mg/dL (8.7-10.4)
[2024-12-16 21:39] LABS: INR 1.08 (0.9-1.15); Partial Thromboplastin Time 26.8 SEC (24.5-34.5); Prothrombin Time 11.4 sec (9.3-11.8)
--- NOTE | 2024-12-16 22:11 | DVH ---
CHEST RADIOGRAPH REASON FOR EXAM: SOB COMPARISON: XY CHEST PORTABLE on DOS: 07/07/24, XY CHEST PORTABLE on DOS: 07/05/24, XY CHEST XRAY 1 VIEW on DOS: 07/04/24, XY CHEST PORTABLE on DOS: 07/03/24, XY CHEST PORTABLE on DOS: 07/03/24 TECHNIQUE: One view of the chest is provided FINDINGS: The cardiomediastinal silhouette is within normal limits for technique. The tracheostomy tu be appears unchanged in position. There is no focal airspace disease. There is a possible 19 mm nodul e in the right suprahilar region. There is no significant pleural effusion. There is no pneumothorax. No acute osseous abnormality is identified. IMPRESSION: No focal airspace disease. Possible 19 mm nodule in the right suprahilar region. Recommend follow-up chest CT.
[2024-12-16] MEDS: ONDANSETRON HCL 4 MG/2 ML VIAL IV ONE (22:47)
[2024-12-16] MEDS: MORPHINE SULFATE 4 MG/ML SYR/VIAL IV ONE (22:48)
[2024-12-16] MEDS: SODIUM CHLORIDE 0.9% 1,000 ML IV ONE (23:40)
[2024-12-16] MEDS ORDERED: DOCUSATE SOD 100 MG CAP PO PRN (23:45)
[2024-12-16] MEDS: POTASSIUM CHL 20MEQ/100ML 100 ML IV ONE (23:51)
--- NOTE | 2024-12-16 23:51 | DVHHP2 ---
History of Present Illness Reason for Visit: Hypokalemia History of Present Illness The patient is a 59-year-old male with past medical history of AFib, asthma, COPD, and hypertension who presented to [facility] ED with complaint of dislodged G-tube. As reported by patient, he was coughing when his G-tube dislodged, patient refusing G-tube placement. Patient stated to have tube placed following unspecified medical event he underwent in the last 2-3 months. Patient was seen and evaluated in the ED, laboratory data shows WBC 10.4, platelets 419, sodium 140, potassium 2.8, BUN 17, creatinine 1.58, glucose 78, calcium 14.6, magnesium 1.4, blood pressure 126/84, heart rate 80, temperature 99.2 F, O2 saturation 95% on room air. Chest x-ray revealing possible 9 mm nodules in the right suprahilar region, no focal airspace disease. Please see medication orders section in the computer. On my assessment, patient denied chest pain, no headache, no dizziness, no diaphoresis, currently on trach, no nausea, no vomiting, no fever, no chills. Patient was admitted for further evaluation and medical management. Past Medical History AFIB, Asthma, COPD, HTN Past Surgical History Appendectomy Family History Reviewed, noncontributory to the management of this case. Past Social History The patient lives at home, smokes cigarettes, denies alcohol or illicit drugs abuse. Review of Systems Constitutional: Yes: Weakness; No: Fever, Chills, Sweats, Malaise, Other Eyes: No: Pain, Vision change, Conjunctivae inflammation, Eyelid inflammation, Other, Redness ENT: No: Ear pain, Ear discharge, Nose pain, Nose discharge, Nose congestion, Mouth pain, Mouth swelling, Throat pain, Throat swelling, Other Respiratory: No: Cough, Dry, Shortness of breath, SOB with excertion, Wheezing, Hemoptysis, Pleuritic Pain, Sputum, Wheezing, Other Cardiovascular: No: Chest Pain, Palpitations, Orthopnea, Paroxysmal Noc. Dyspnea, Edema, Lt Headedness, Other Gastrointestinal: Other (G-tube dislodgement); No: Nausea, Vomiting, Abdominal Pain, Diarrhea, Constipation, Melena, Hematochezia Genitourinary: No Dysuria, No Frequency, No Incontinence, No Hematuria, No Retention, No Other Musculoskeletal: No: other, neck pain, shoulder pain, arm pain, back pain, hand pain, leg pain, foot pain Skin: No: Rash, Lesions, Jaundice, Bruising, Other Neurological: No: Weakness, Numbness, Incoordination, Change in speech, Confusion, Seizures, Other Allergies: Coded Allergies: NO KNOWN ALLERGIES (Unverified , 12/20/22) Medications Current Medications Medications Dose Ordered Sig/Milvia Route Start Time Stop Time Status Last Admin Dose Admin Sodium Chloride 10 ml Q8HR IV 12/17/24 06:00 UNV Acetaminophen/ Hydrocodone Bitart 1 tab Q4HP PRN PO 12/16/24 23:45 UNV Ondansetron HCl 4 mg Q4HP PRN IV 12/16/24 23:45 UNV Docusate Sodium 100 mg BIDPRN PRN PO 12/16/24 23:45 UNV Acetaminophen 650 mg Q6HP PRN PO 12/16/24 23:45 UNV Exam Vital Signs Vital Signs Date Time Temp Pulse Resp B/P (MAP) Pulse Ox O2 Delivery O2 Flow Rate FiO2 12/16/24 22:48 80 14 126/84 12/16/24 22:21 96 12/16/24 21:58 Room Air* 0 21 12/16/24 20:49 99.2 99.2 General Appearance: Alert, Oriented X3, Cooperative, No acute distress HEENT: Atraumatic, PERRLA, EOMI, Mucous membr. moist/pink Respiratory: Normal air movement Cardiovascular: Regular rate, Normal S1, Normal S2, No murmurs Abdominal: Normal bowel sounds, Soft, No tenderness, No hepatospenomegaly, No masses, Other (Dislodged G-tube) Extremities: No clubbing, No cyanosis, No edema, Normal pulses, No tenderness/swelling Skin: No rashes, No breakdown, No significant lesion Neuro: Normal speech, Normal tone, Sensation intact, Cranial nerves 3-12 NL, Reflexes 2+, Other (Generalized weakness) Psych/Mental Status: Mental status NL, Mood NL Labs/Xrays Labs Test 12/16/24 20:56 Range/Units White Blood Count 10.4 4.4-10.8 10^3/uL Red Blood Count 5.53 4.5-5.90 10^6/uL Hemoglobin 12.8 L 13.5-17.5 g/dL Hematocrit 39.0 L 41.0-53.0 % Mean Corpuscular Volume 70.4 L 80.0-100.0 fL Mean Corpuscular Hemoglobin 23.1 L 28.0-32.0 pg Mean Corpuscular Hemoglobin Concent 32.8 32.0-36.0 g/dL Red Cell Distribution Width 18.9 H 11.8-14.3 % Platelet Count 419 140-450 10^3/uL Mean Platelet Volume 8.2 6.9-10.8 fL Neutrophils (%) (Auto) 59.7 37.0-80.0 % Lymphocytes (%) (Auto) 23.4 10.0-50.0 % Monocytes (%) (Auto) 9.8 0.0-12.0 % Eosinophils (%) (Auto) 5.5 0.0-7.0 % Basophils (%) (Auto) 1.6 0.0-2.0 % Neutrophils # (Auto) 6.2 1.6-8.6 10 ^3/uL Lymphocytes # (Auto) 2.4 0.4-5.4 10 ^3/uL Monocytes # (Auto) 1.0 0-1.3 10 ^3/uL Eosinophils # (Auto) 0.6 0-0.8 10 ^3/uL Basophils # (Auto) 0.2 0-0.2 10 ^3/uL Nucleated Red Blood Cells 0.1 % Prothrombin Time 11.4 9.3-11.8 sec Prothrombin Time INR 1.08 0.9-1.15 Activated Partial Thromboplast Time 26.8 24.5-34.5 SEC Sodium Level 140 136-145 mmol/L Potassium Level 2.8 L 3.5-5.1 mmol/L Chloride Level 100 98-107 mmol/L Carbon Dioxide Level 27 20-31 mmol/L Anion Gap 13 5-15 Blood Urea Nitrogen 17 9-23 mg/dL Creatinine 1.58 H 0.700-1.30 mg/dL Glomerular Filtration Rate Calc 50 >90 mL/min BUN/Creatinine Ratio 10.8 10.0-20.0 Serum Glucose 78 74-106 mg/dL Calcium Level 14.6 *H 8.7-10.4 mg/dL Magnesium Level 1.4 L 1.6-2.6 mg/dL Total Bilirubin 0.3 0.2-1.0 mg/dL Aspartate Amino Transferase (AST) 14 13-40 U/L Alanine Aminotransferase (ALT) < 9 7-40 U/L Alkaline Phosphatase 103 46-116 U/L Total Protein 6.7 5.7-8.2 g/dL Albumin 4.0 3.2-4.8 g/dL PATIENT: YONATHAN VARNER ACCT: [id number] UNIT: [id number] : 1965 LOC: ER ROOM / BED: / AGE / SEX: 59 / M ADM STATUS: REG ER SERVICE 48 ORDERING PHYSICIAN: LAITH MASTERSON MD PROCEDURE(s): CXRP - CHEST PORTABLE REASON: SOB ORDER NUMBER(s): [id number], ACCESSION NUMBER(s): [id number] CHEST RADIOGRAPH REASON FOR EXAM: SOB COMPARISON: XY CHEST PORTABLE on DOS: 07/07/24, XY CHEST PORTABLE on DOS: 07/05/24, XY CHEST XRAY 1 VIEW on DOS: 07/04/24, XY CHEST PORTABLE on DOS: 07/03/24, XY CHEST PORTABLE on DOS: 07/03/24 TECHNIQUE: One view of the chest is provided FINDINGS: The cardiomediastinal silhouette is within normal limits for technique. The tracheostomy tube appears unchanged in position. There is no focal airspace disease. There is a possible 19 mm nodule in the right suprahilar region. There is no significant pleural effusion. There is no pneumothorax. No acute osseous abnormality is identified. IMPRESSION: No focal airspace disease. Possible 19 mm nodule in the right suprahilar region. Recommend follow-up chest CT. SEPSIS Sepsis Screen Date sepsis recognized/suspect: Dec 16, 2024 Time Sepsis recognized/suspect: 2029 Recent Procedure: No On Antibiotic Therapy: No Respiratory Rate >20: No Heart Rate >90: No Temp<36 C (96.8 F) or >38.3 C: No SBP <90 or MAP <65 mmHG: No New Acute Mental Status Change: No Is the patient on CPAP, BIPAP,: No Physician Orders Chest Portable (12/16/24 20:49) Electrocardigram (12/16/24 20:49) Potassium Chl 20meq/100ml (12/16/24 23:30) Sodium Chloride 0.9% (12/16/24 23:30) Magnesium Sulfate 1gm/100ml (12/16/24 23:45) Furosemide Injection (Lasix Injection) (12/16/24 23:45) Allergies (12/16/24 23:33) Code Status (12/16/24 23:33) Sodium Chloride Lock (Saline Lock Ns) (12/17/24 06:00) Oxygen Per Hour (12/16/24 23:33) Hydrocodone-Acet 5/325mg Tab (Ubly 32 (12/16/24 23:45) Ondansetron Hcl (Zofran) (12/16/24 23:45) Docusate Sodium Capsule (Colace Capsule) (12/16/24 23:45) Complete Blood Count (12/17/24 04:00) Comprehensive Metabolic Panel (12/17/24 04:00) Cardiac Diet-2gna,Lofat,Lochol (12/17/24 Breakfast) Condition: Serious (12/16/24 23:33) Acetaminophen Tablet (Tylenol Tablet) (12/16/24 23:45) Bedrest With Bathroom Privileg (12/16/24 23:33) Sequential Compression Device (12/16/24 ) Parathyroid Hormone Intact (12/16/24 23:33) Vitamin D, 25-Hydroxy (12/16/24 23:33) Potassium Chl 20meq/100ml (12/16/24 23:45) Vital Signs Date Time Temp Pulse Resp B/P (MAP) Pulse Ox O2 Delivery O2 Flow Rate FiO2 12/16/24 22:48 80 14 126/84 12/16/24 22:21 80 14 126/84 (98) 96 12/16/24 21:58 Room Air* 0 21 12/16/24 20:49 99.2 97 20 125/84 (98) 94 99.2 Laboratory Tests Test 12/16/24 20:56 White Blood Count 10.4 10^3/uL (4.4-10.8) Medications Medications Dose Ordered Sig/Milvia Route Start Time Stop Time Status Last Admin Dose Admin Morphine Sulfate 4 mg ONCE ONCE IV 12/16/24 22:45 12/16/24 22:46 DC 12/16/24 22:48 4 MG Ondansetron HCl 4 mg ONCE ONCE IV 12/16/24 22:45 12/16/24 22:46 DC 12/16/24 22:47 4 MG Sodium Chloride 1,000 ml @ 150 mls/hr Q6H40M ONCE IV 12/16/24 23:30 12/17/24 06:09 12/16/24 23:40 150 MLS/HR Sodium Chloride 1,000 ml @ 1,000 mls/hr Q1H ONCE IVB 12/16/24 21:00 12/16/24 21:59 DC 12/16/24 21:00 1,000 MLS/HR Assessment/Plan Assessment/Plan Acute renal injury Hypercalcemia Hypokalemia Dehydration Vomiting and diarrhea Dislodged gastrostomy tube Plan 1. Admit to telemetry unit 2. Breathing treatment 3. Pain control management 4. Management of fluids and electrolytes 5. Consultation for hospitalist 6. Diagnostic tests 7. DVT prophylaxis on SCDs 8. Repeat labs CBC, CMP in a.m. 9. Continue with current medical management 10. Treatment plan discussed with patient and RN. Patient verbalized understanding. Plan discussed with: Patient, Other (RN) My Orders Orders - VELASQUEZ LEE DNP Procedure Category Date Status Time Magnesium Sulfate PHA 12/16/24 Logged 1gm/100ml 23:45 Furosemide Injection PHA 12/16/24 Logged (Lasix Injection) 23:45 Allergies COURTNEY 12/16/24 In Process 23:33 Code Status CODE 12/16/24 Transmitted 23:33 Sodium Chloride Lock PHA 12/17/24 Logged (Saline Lock Ns) 06:00 Oxygen Per Hour RT 12/16/24 Transmitted 23:33 Hydrocodone-Acet PHA 12/16/24 Logged 5/325mg Tab (Ubly 23:45 Ondansetron Hcl PHA 12/16/24 Logged (Zofran) 23:45 Docusate Sodium PHA 12/16/24 Logged Capsule (Colace 23:45 Complete Blood Count LAB 12/17/24 Verified 04:00 Comprehensive LAB 12/17/24 Verified Metabolic Panel 04:00 Cardiac DIET 12/17/24 Transmitted Diet-2gna,Lofat,Lochol Breakfast Condition: Serious COURTNEY 12/16/24 In Process 23:33 Acetaminophen Tablet PHA 12/16/24 Logged (Tylenol Tablet) 23:45 Bedrest With Bathroom COURTNEY 12/16/24 In Process Privileg 23:33 Sequential COURTNEY 12/16/24 In Process Compression Device Parathyroid Hormone LAB 12/16/24 Logged Intact 23:33 Vitamin D, 25-Hydroxy LAB 12/16/24 Logged 23:33 Potassium Chl PHA 12/16/24 Logged 20meq/100ml 23:45 Problem List: (1) Acute renal injury (2) Hypercalcemia (3) Hypokalemia (4) Dehydration (5) Vomiting and diarrhea (6) Dislodged gastrostomy tube Date of Service: Dec 16, 2024 Billing Provider: VELASQUEZ LEE DNP Common Visit Codes: [id number] INP/OBS CARE (HIGH) VELASQUEZ LEE DNP Dec 16, 2024 23:51
[2024-12-17] VITALS (8 sets, daily range): BP systolic 113–128; BP diastolic 74–90; PULSE 62–88; RESP 16–20; TEMP 96.8–98.4; O2SAT 92–99
[2024-12-17] MEDS ORDERED: NITROGLYCERIN 0.4 MG SL TAB SL PRN
[2024-12-17] MEDS ORDERED: MORPHINE SULFATE INJ 2 MG/ml SYRG IV PRN
[2024-12-17] MEDS: POTASSIUM CHL 20MEQ/100ML 100 ML IV ONE ×3 (00:30→07:10)
[2024-12-17] MEDS: HYDROcodone-ACET 5/325MG TAB PO PRN (01:50)
[2024-12-17] MEDS: FUROSEMIDE 40 MG/4 ML VIAL IV ONE (01:58)
[2024-12-17] MEDS: MAGNESIUM SULFATE 1GM/100ML 100 ML IV ONE (01:59)
[2024-12-17 04:18] LABS: Hematocrit 37.7 % (41.0-53.0); Hemoglobin 12.4 g/dL (13.5-17.5); Mean Corpuscular Hemoglobin 23.6 pg (28.0-32.0); Mean Corpuscular Volume 71.7 fL (80.0-100.0); Nucleated Red Blood Cells % 0.1 %
[2024-12-17 04:34] LABS: Albumin 4.0 g/dL (3.2-4.8); Alkaline Phosphatase 100 U/L (46-116); Anion Gap 11 (5-15); BUN/Creatinine Ratio 9.5 (10.0-20.0); Blood Urea Nitrogen 14 mg/dL (9-23); Carbon Dioxide 28 mmol/L (20-31); Chloride 101 mmol/L (98-107); Glucose 85 mg/dL (74-106); Sodium 140 mmol/L (136-145); Total Protein 6.6 g/dL (5.7-8.2)
[2024-12-17 04:35] LABS: Bilirubin, Total 0.3 mg/dL (0.2-1.0)
[2024-12-17 04:36] LABS: Alanine Aminotransferase < 9 U/L (7-40); Potassium 3.1 mmol/L (3.5-5.1)
[2024-12-17 04:38] LABS: Calcium 13.9 mg/dL (8.7-10.4)
[2024-12-17] MEDS ORDERED: SOD CHL 0.9%/ KCL 20MEQ 1,000 ML IV SCH ×2 (05:00→07:00)
[2024-12-17] MEDS: SODIUM CHLOR 0.9% PF (SALINE LOCK) 10ML VIAL/SYR IV SCH (06:00)
--- NOTE | 2024-12-17 15:14 | DVHPN2 ---
Subjective The patient seen and examined at bedside. State that he still nausea. No vomiting. Reviewed: Care Plan, H&P, Labs, Medications, Previous Orders, Radiology Changes from previous H/P or p: No Changes Eyes: No Pain, No Vision change, No Conjunctivae inflammation, No Eyelid inflammation, No Other, No Redness ENT: No Ear pain, No Ear discharge, No Nose pain, No Nose discharge, No Nose congestion, No Mouth pain, No Mouth swelling, No Throat pain, No Throat swelling, No Other Cardiovascular: No Chest Pain, No Palpitations, No Orthopnea, No Paroxysmal Noc. Dyspnea, No Edema, No Lt Headedness, No Other Respiratory: No Cough, No Dry, No Shortness of breath, No SOB with excertion, No Wheezing, No Hemoptysis, No Pleuritic Pain, No Sputum, No Other Gastrointestinal: No Nausea, No Vomiting, No Abdominal Pain, No Diarrhea, No Constipation, No Melena, No Hematochezia; Other (G-tube dislodgement) Genitourinary: No Dysuria, No Frequency, No Incontinence, No Hematuria, No Retention, No Other Musculoskeletal: No other, No neck pain, No shoulder pain, No arm pain, No back pain, No hand pain, No leg pain, No foot pain Skin: No Rash, No Lesions, No Jaundice, No Bruising, No Other Objective Vitals Vital Signs Date Time Temp Pulse Resp B/P (MAP) Pulse Ox O2 Delivery O2 Flow Rate FiO2 12/17/24 09:00 98.3 62 16 120/85 (97) 98 98.3 12/17/24 05:23 Nasal Cannula* 2 28 Intake/Output Intake and Output 12/17/24 07:00 Intake Total 1000 ml Balance 1000 ml Intake IV Total 1000 ml General Appearance: Alert, Cooperative, mild distress HEENT: Atraumatic, PERRLA, EOMI, Mucous membr. moist/pink Neck: Supple Lungs: Clear to auscultation, Normal air movement Cardiovascular: Regular rate, Normal S1, Normal S2, No murmurs, Gallops, Rubs Abdomen: Normal bowel sounds, Soft, No tenderness, Other (G tube scar. Per patient the G tube dislogde couple days?) Neuro: Cranial nerves 3-12 NL Psych/Mental Status: Mental status NL Medications Current Medications Medications Dose Ordered Sig/Milvia Route Start Time Stop Time Status Last Admin Dose Admin Sodium Chloride 10 ml Q8HR IV 12/17/24 06:00 12/17/24 06:00 10 ML Acetaminophen/ Hydrocodone Bitart 1 tab Q4HP PRN PO 12/16/24 23:45 12/17/24 11:03 1 TAB Ondansetron HCl 4 mg Q4HP PRN IV 12/16/24 23:45 Docusate Sodium 100 mg BIDPRN PRN PO 12/16/24 23:45 Acetaminophen 650 mg Q6HP PRN PO 12/16/24 23:45 Nitroglycerin 0.4 mg Q5MINP PRN SL 12/17/24 00:00 Morphine Sulfate 2 mg Q30M PRN IV 12/17/24 00:00 Laboratory Results Laboratory Tests 12/17/24 03:43 Chemistry Test 12/16/24 20:56 12/17/24 03:43 Albumin 4.0 g/dL (3.2-4.8) 4.0 g/dL (3.2-4.8) Calcium Level 14.6 mg/dL (8.7-10.4) *H 13.9 mg/dL (8.7-10.4) *H Magnesium Level 1.4 mg/dL (1.6-2.6) L Total Protein 6.7 g/dL (5.7-8.2) 6.6 g/dL (5.7-8.2) Coagulation Test 12/16/24 20:56 Prothrombin Time 11.4 sec (9.3-11.8) Prothrombin Time INR 1.08 (0.9-1.15) Activated Partial Thromboplast Time 26.8 SEC (24.5-34.5) LFT Test 12/16/24 20:56 12/17/24 03:43 Alanine Aminotransferase (ALT) < 9 U/L (7-40) < 9 U/L (7-40) Alkaline Phosphatase 103 U/L (46-116) 100 U/L (46-116) Aspartate Amino Transferase (AST) 14 U/L (13-40) 15 U/L (13-40) Total Bilirubin 0.3 mg/dL (0.2-1.0) 0.3 mg/dL (0.2-1.0) Labs and/or images reviewed: Labs reviewed by me Assessment/Plan Assessment/Plan Acute renal injury Hypercalcemia Hypokalemia Dehydration Vomiting and diarrhea Dislodged gastrostomy tube Continue current management with IVF. Will replace electrolyte Swallow evaluation. Continue Zofran IV PRN for N/V GI consult for Gtube reinsert since patient cannot eat any solid. Plan discussed with: Patient Date of Service: Dec 18, 2024 Billing Provider: GISELLA LEYVA MD Common Visit Codes: [id number] INP/OBS CARE(HIGH) GISELLA LEYVA MD Dec 17, 2024 15:14
[2024-12-17] MEDS: ONDANSETRON HCL 4 MG/2 ML VIAL IV PRN (18:05)
[2024-12-18] VITALS (9 sets, daily range): BP systolic 121–150; BP diastolic 80–97; PULSE 61–91; RESP 15–18; TEMP 96.6–98.6; O2SAT 85–100
--- NOTE | 2024-12-18 12:36 | DVHPN2 ---
Subjective The patient seen and examined at bedside. Still not able to keep food down but state that he will try his lunch later. Patient able to drink and take meds. Reviewed: Care Plan, H&P, Labs, Medications, Previous Orders, Radiology Changes from previous H/P or p: No Changes Eyes: No Pain, No Vision change, No Conjunctivae inflammation, No Eyelid inflammation, No Other, No Redness ENT: No Ear pain, No Ear discharge, No Nose pain, No Nose discharge, No Nose congestion, No Mouth pain, No Mouth swelling, No Throat pain, No Throat swelling, No Other Cardiovascular: No Chest Pain, No Palpitations, No Orthopnea, No Paroxysmal Noc. Dyspnea, No Edema, No Lt Headedness, No Other Respiratory: No Cough, No Dry, No Shortness of breath, No SOB with excertion, No Wheezing, No Hemoptysis, No Pleuritic Pain, No Sputum, No Other Gastrointestinal: No Nausea, No Vomiting, No Abdominal Pain, No Diarrhea, No Constipation, No Melena, No Hematochezia; Other (G-tube dislodgement) Genitourinary: No Dysuria, No Frequency, No Incontinence, No Hematuria, No Retention, No Other Musculoskeletal: No other, No neck pain, No shoulder pain, No arm pain, No back pain, No hand pain, No leg pain, No foot pain Skin: No Rash, No Lesions, No Jaundice, No Bruising, No Other Objective Vitals Vital Signs Date Time Temp Pulse Resp B/P (MAP) Pulse Ox O2 Delivery O2 Flow Rate FiO2 12/18/24 08:42 98.0 66 16 150/92 (111) 100 98.0 12/18/24 08:00 Nasal Cannula* 2 28 Intake/Output Intake and Output 12/18/24 07:00 Intake Total 1330 ml Balance 1330 ml Intake Oral 1230 ml IV Total 100 ml # Voids 7 General Appearance: Alert, Cooperative, mild distress HEENT: Atraumatic, PERRLA, EOMI, Mucous membr. moist/pink Neck: Supple Lungs: Clear to auscultation, Normal air movement Cardiovascular: Regular rate, Normal S1, Normal S2, No murmurs, Gallops, Rubs Abdomen: Normal bowel sounds, Soft, No tenderness, Other (G tube scar.) Neuro: Cranial nerves 3-12 NL Psych/Mental Status: Mental status NL Medications Current Medications Medications Dose Ordered Sig/Milvia Route Start Time Stop Time Status Last Admin Dose Admin Sodium Chloride 10 ml Q8HR IV 12/17/24 06:00 12/18/24 06:10 10 ML Acetaminophen/ Hydrocodone Bitart 1 tab Q4HP PRN PO 12/16/24 23:45 12/17/24 11:03 1 TAB Ondansetron HCl 4 mg Q4HP PRN IV 12/16/24 23:45 12/17/24 18:05 4 MG Docusate Sodium 100 mg BIDPRN PRN PO 12/16/24 23:45 Acetaminophen 650 mg Q6HP PRN PO 12/16/24 23:45 Nitroglycerin 0.4 mg Q5MINP PRN SL 12/17/24 00:00 Morphine Sulfate 2 mg Q30M PRN IV 12/17/24 00:00 Laboratory Results Laboratory Tests 12/17/24 03:43 Labs and/or images reviewed: Labs reviewed by me Assessment/Plan Assessment/Plan Acute renal injury Hypercalcemia Hypokalemia Dehydration Vomiting and diarrhea Dislodged gastrostomy tube Continue current management with IVF. Will replace electrolyte Swallow evaluation. Continue Zofran IV PRN for N/V GI consult for Gtube reinsert since patient cannot eat any solid. Plan discussed with: Patient My Orders Orders - GISELLA LEYVA MD Procedure Category Date Status Time * Gi D[facility] [employer] CONS 12/17/24 Transmitted 19:01 Date of Service: Dec 18, 2024 Billing Provider: GISELLA LEYVA MD Common Visit Codes: [id number] INP/OBS CARE(HIGH) GISELLA LEYVA MD Dec 18, 2024 12:36
--- NOTE | 2024-12-18 13:18 | DVHINCON2 ---
GI Consult Consult Note GI consult note Date of Consultation: 12/18/2024 Chief Complaint: G tube removed Referring Physician: Dr. Hernandez H&P: 59-year-old male with past medical history of AFib, asthma, COPD, hypertension presented to ER with dislodged PEG tube. Patient reports to have fit of coughing which dislodged his PEG tube. Patient able to eat regular food. Patient was hospitalized in June 20, 2024 and was intubated where he had a tracheostomy and a PEG tube placement done. Denies abdominal pain. Patient admits to weight loss of 30 lb in six months Past Medical History: AFIB, Asthma, COPD, HTN Past Surgical History: Appendectomy Social History: + smoking, no drinking ETOH and use of illegal drugs. Family History: Reviewed, noncontributory to the management of this case. Review of Systems: Constitutional: no fever, chill, weight loss HEENT: no eye pain, no hearing loss, no oral lesion, no scleral icterus Heart: no chest pain, no chest pressure Lung: no cough, no dyspnea with exertion Abdomen: see HPI Physical exam: General: NAD, AAOX3 Chest: lung hughes clear to auscultation Heart: RRR, no murmur Abdomen: non-distended, no tenderness to palpation, +BS Labs: Labs Test 12/17/24 03:43 12/16/24 20:56 Range/Units White Blood Count 9.1 4.4-10.8 10^3/uL Red Blood Count 5.26 4.5-5.90 10^6/uL Hemoglobin 12.4 L 13.5-17.5 g/dL Hematocrit 37.7 L 41.0-53.0 % Mean Corpuscular Volume 71.7 L 80.0-100.0 fL Mean Corpuscular Hemoglobin 23.6 L 28.0-32.0 pg Mean Corpuscular Hemoglobin Concent 32.9 32.0-36.0 g/dL Red Cell Distribution Width 18.4 H 11.8-14.3 % Platelet Count 384 140-450 10^3/uL Mean Platelet Volume 8.1 6.9-10.8 fL Neutrophils (%) (Auto) 61.6 37.0-80.0 % Lymphocytes (%) (Auto) 23.2 10.0-50.0 % Monocytes (%) (Auto) 7.6 0.0-12.0 % Eosinophils (%) (Auto) 6.0 0.0-7.0 % Basophils (%) (Auto) 1.6 0.0-2.0 % Neutrophils # (Auto) 5.6 1.6-8.6 10 ^3/uL Lymphocytes # (Auto) 2.1 0.4-5.4 10 ^3/uL Monocytes # (Auto) 0.7 0-1.3 10 ^3/uL Eosinophils # (Auto) 0.5 0-0.8 10 ^3/uL Basophils # (Auto) 0.1 0-0.2 10 ^3/uL Nucleated Red Blood Cells 0.1 % Sodium Level 140 136-145 mmol/L Potassium Level 3.1 L 3.5-5.1 mmol/L Chloride Level 101 98-107 mmol/L Carbon Dioxide Level 28 20-31 mmol/L Anion Gap 11 5-15 Blood Urea Nitrogen 14 9-23 mg/dL Creatinine 1.47 H 0.700-1.30 mg/dL Glomerular Filtration Rate Calc 54 >90 mL/min BUN/Creatinine Ratio 9.5 L 10.0-20.0 Serum Glucose 85 74-106 mg/dL Calcium Level 13.9 *H 8.7-10.4 mg/dL Total Bilirubin 0.3 0.2-1.0 mg/dL Aspartate Amino Transferase (AST) 15 13-40 U/L Alanine Aminotransferase (ALT) < 9 7-40 U/L Alkaline Phosphatase 100 46-116 U/L Total Protein 6.6 5.7-8.2 g/dL Albumin 4.0 3.2-4.8 g/dL Prothrombin Time 11.4 9.3-11.8 sec Prothrombin Time INR 1.08 0.9-1.15 Activated Partial Thromboplast Time 26.8 24.5-34.5 SEC Magnesium Level 1.4 L 1.6-2.6 mg/dL Vitamin D 25-Hydroxy 56.3 30.0-100 ng/mL Parathyroid Hormone (Intact) 15.8 L 18.4-80.1 pg/mL Imaging: CXR IMPRESSION: No focal airspace disease. Possible 19 mm nodule in the right suprahilar region. Recommend follow-up chest CT. Assessment: dislodged PEG tube N/V Diarrhea Plan: Discussed with Dr. Lu Possible EGD with PEG placement discussed with patient, at this time patient is refusing to have this replaced Continue regular diet with 2-3 ensure drink supplements every day Zofran and Protonix If loose stool persists stool studies recommended We will continue to monitor patient Plan discussed with patient and RN Thank you for this consult Date of Service: Dec 18, 2024 Billing Provider: LAURI MCCAULEY Common Visit Codes: CONSULT ONLY Consultation Codes: [id number] CONSULT <60MIN LAURI MCCAULEY Dec 18, 2024 13:18
--- NOTE | 2024-12-18 20:18 | CODING ---
Date of Service: Dec 17, 2024 Billing Provider: GISELLA LEYVA MD Common Visit Codes: [id number] INP/OBS CARE(HIGH) GISELLA LEYVA MD Dec 18, 2024 20:18
[2024-12-19] VITALS (9 sets, daily range): BP systolic 121–140; BP diastolic 86–96; PULSE 69–91; RESP 16–21; TEMP 96.7–98; O2SAT 94–98
--- NOTE | 2024-12-19 12:33 | DVHPN2 ---
Subjective The patient seen and examined at bedside. Still not able to keep food down but still refuse G tube reinsert. Reviewed: Care Plan, H&P, Labs, Medications, Previous Orders, Radiology Changes from previous H/P or p: No Changes Eyes: No Pain, No Vision change, No Conjunctivae inflammation, No Eyelid inflammation, No Other, No Redness ENT: No Ear pain, No Ear discharge, No Nose pain, No Nose discharge, No Nose congestion, No Mouth pain, No Mouth swelling, No Throat pain, No Throat swelling, No Other Cardiovascular: No Chest Pain, No Palpitations, No Orthopnea, No Paroxysmal Noc. Dyspnea, No Edema, No Lt Headedness, No Other Respiratory: No Cough, No Dry, No Shortness of breath, No SOB with excertion, No Wheezing, No Hemoptysis, No Pleuritic Pain, No Sputum, No Other Gastrointestinal: No Nausea, No Vomiting, No Abdominal Pain, No Diarrhea, No Constipation, No Melena, No Hematochezia; Other (G-tube dislodgement) Genitourinary: No Dysuria, No Frequency, No Incontinence, No Hematuria, No Retention, No Other Musculoskeletal: No other, No neck pain, No shoulder pain, No arm pain, No back pain, No hand pain, No leg pain, No foot pain Skin: No Rash, No Lesions, No Jaundice, No Bruising, No Other Objective Vitals Vital Signs Date Time Temp Pulse Resp B/P (MAP) Pulse Ox O2 Delivery O2 Flow Rate FiO2 12/19/24 12:21 96.7 83 17 135/96 (109) 97 96.7 12/19/24 08:00 Nasal Cannula* 2 28 Intake/Output Intake and Output 12/19/24 07:00 Intake Total 400 ml Output Total 150 ml Balance 250 ml Intake Oral 400 ml Output Urine Total 150 ml # Voids 3 General Appearance: Alert, Cooperative, mild distress HEENT: Atraumatic, PERRLA, EOMI, Mucous membr. moist/pink Neck: Supple Lungs: Clear to auscultation, Normal air movement Cardiovascular: Regular rate, Normal S1, Normal S2, No murmurs, Gallops, Rubs Abdomen: Normal bowel sounds, Soft, No tenderness, Other (G tube scar.) Neuro: Cranial nerves 3-12 NL Psych/Mental Status: Mental status NL Medications Current Medications Medications Dose Ordered Sig/Milvia Route Start Time Stop Time Status Last Admin Dose Admin Sodium Chloride 10 ml Q8HR IV 12/17/24 06:00 12/19/24 05:46 10 ML Acetaminophen/ Hydrocodone Bitart 1 tab Q4HP PRN PO 12/16/24 23:45 12/19/24 12:04 1 TAB Ondansetron HCl 4 mg Q4HP PRN IV 12/16/24 23:45 12/17/24 18:05 4 MG Docusate Sodium 100 mg BIDPRN PRN PO 12/16/24 23:45 Acetaminophen 650 mg Q6HP PRN PO 12/16/24 23:45 Nitroglycerin 0.4 mg Q5MINP PRN SL 12/17/24 00:00 Morphine Sulfate 2 mg Q30M PRN IV 12/17/24 00:00 Laboratory Results Laboratory Tests 12/17/24 03:43 Labs and/or images reviewed: Labs reviewed by me Assessment/Plan Assessment/Plan Acute renal injury Hypercalcemia Hypokalemia Dehydration Vomiting and diarrhea Dislodged gastrostomy tube Continue current management with IVF. Will replace electrolyte Swallow evaluation. Continue Zofran IV PRN for N/V GI consult for Gtube reinsert since patient cannot eat any solid however, he adamant refuse G tube reinsert. Will try megace 400mg bid, then reassess Will talk to his sister. Per GI, start patient on full liquid diet with supplement such as ensure. Will see if patient able to eat or drink. This medical document was created using an electronic medical record system with [employer] direct computerized dictation system. Although this document has been carefully reviewed, there may still be some phonetic and typographical errors. These areas are purely typographical due to imperfections of the software programs, and do not reflect any compromise in the patient's medical care. Plan discussed with: Patient Date of Service: Dec 19, 2024 Billing Provider: GISELLA LEYVA MD Common Visit Codes: [id number] INP/OBS CARE(HIGH) GISELLA LEYVA MD Dec 19, 2024 12:33
[2024-12-19] MEDS: MEGESTROL ACET 400MG/10ML ORAL SUSP PO SCH (16:20)
--- NOTE | 2024-12-19 21:32 | DVHPN2 ---
Progress Note - Dictate Date Seen: Dec 19, 2024 Medical Necessity Reason Pt with a Central, PICC or Fol: No Subjective No new complaints Patient is awake Undergoing trach care and suctioning Patient is able to tolerate diet c/o abd pain vital signs Vital Sign Date Time Temp Pulse Resp B/P (MAP) Pulse Ox O2 Delivery O2 Flow Rate FiO2 12/19/24 20:32 98 Nasal Cannula* 2 28 12/19/24 16:47 98.0 75 20 140/94 (109) 98.0 Total Intake and Output 12/18/24 12/18/24 12/19/24 15:00 23:00 07:00 Intake Total 200 ml 200 ml Output Total 150 ml Balance 200 ml 50 ml medications Current Medications Medications Dose Ordered Sig/Milvia Route Start Time Stop Time Status Last Admin Dose Admin Sodium Chloride 10 ml Q8HR IV 12/17/24 06:00 12/19/24 14:00 10 ML Acetaminophen/ Hydrocodone Bitart 1 tab Q4HP PRN PO 12/16/24 23:45 12/19/24 12:04 1 TAB Ondansetron HCl 4 mg Q4HP PRN IV 12/16/24 23:45 12/17/24 18:05 4 MG Docusate Sodium 100 mg BIDPRN PRN PO 12/16/24 23:45 Acetaminophen 650 mg Q6HP PRN PO 12/16/24 23:45 Nitroglycerin 0.4 mg Q5MINP PRN SL 12/17/24 00:00 Morphine Sulfate 2 mg Q30M PRN IV 12/17/24 00:00 Megestrol Acetate 400 mg Q12HR PO 12/20/24 10:00 objective General: NAD, AAOX3 Chest: lung hughes clear to auscultation Heart: RRR, no murmur Abdomen: non-distended, no tenderness to palpation, +BS laboratory and microbiology Laboratory Tests 12/17/24 03:43 Test 12/17/24 03:43 Range/Units Serum Glucose 85 74-106 mg/dL Problems(with codes): (1) Dislodged gastrostomy tube (2) Dehydration Prognosis Plan Patient does not want the G-tube replaced at this time Continue diet as tolerated Continue to monitor labs Tracheostomy care Hospitalist/RT to evaluate possible decreasing the size of the tracheostomy Monitor labs nutritional intake and clinical course Patient has severe hypercalcemia and acute on chronic renal insufficiency Possible repeat CT of the abdomen pelvis for evaluation of weight loss and hypercalcemia Plan discussed with: Patient BERTO LUIS MD Dec 19, 2024 21:32
[2024-12-19] MEDS: KETOROLAC TROMETH 30 MG/ML 1ML VIAL IV ONE (23:35)
[2024-12-20] VITALS (11 sets, daily range): BP systolic 124–147; BP diastolic 91–100; PULSE 64–88; RESP 12–19; TEMP 97.5–98.6; O2SAT 92–100
[2024-12-20] MEDS: ALBUTEROL SULF 2.5 MG/0.5ML(0.5%) NEB SOLN NEB PRN (00:27)
[2024-12-20] MEDS: MEGESTROL ACET 400MG/10ML ORAL SUSP PO SCH (10:26)
--- NOTE | 2024-12-20 12:33 | DVH ---
Exam: CT CT AB PEL WO CON-NO ORAL OR IV History: wt loss high calcium Comparison Study: CT CHST AB PEL WO CON-NO IV/ORAL on DOS: 03/18/24, CT ABD PELVIS WO CONTRAST on DOS : 07/20/20 Technique: Multidetector spiral CT of the abdomen was performed from lung bases to pubic symphysis. I maging was performed without IV contrast. Axial, coronal and sagittal multiplanar reformats were obta ined from the axial data set by the technologist. Radiation Dose : 1. Abdomen/Pelvis: CTDIvol 5.3 mGy, DLP 285.6 mGy*cm. Findings: Evaluation of solid organs is limited due to lack of intravenous contrast use. Lung Bases: Emphysema. Right lower lobe airspace disease or atelectasis. Liver: The liver is normal in size. No focal lesions. Gallbladder and Biliary Tree: Unremarkable Spleen: Unremarkable Pancreas: The pancreas is grossly normal in appearance. Adrenal Glands: Unremarkable Kidneys: No hydronephrosis. Few bilateral punctate nonobstructing renal stones measuring up to 0.3 c m. Bladder: Debris is present in the urinary bladder. Distended urinary bladder. Bowel: The stomach is grossly normal in appearance. Moderate colonic stool. [id number] diffuse colonic bowel wall thickening. The appendix is not visualized; however, no secondary findings of acut e appendicitis identified. Ascites: Absent Lymphadenopathy: No mesenteric, retroperitoneal or periportal lymphadenopathy. Abdominal Wall and Mesentery: Unremarkable. Vasculature: The visualized abdominal aorta is normal in size and caliber. Evaluation of abdominal a nd pelvic vessels is limited due to lack of intravenous contrast. Pelvic Organs: Unremarkable Musculoskeletal: No aggressive focal bony lesions, acute fractures or dislocation. IMPRESSION: [id number] diffuse colonic bowel wall thickening; possibly colitis. Moderate diffuse colonic bowel wall thickening. Bilateral nonobstructing renal stones. Mildly distended urinary bladder with debris. Emphysema. Right lower lobe airspace disease or atelectasis.
--- NOTE | 2024-12-20 12:50 | DVHPN2 ---
Progress Note - Dictate Date Seen: Dec 20, 2024 Medical Necessity Reason Pt with a Central, PICC or Fol: No Subjective No new complaints Patient is resting comfortably Patient is able to tolerate diet but he chose not to eat breakfast c/o abd pain vital signs Vital Sign Date Time Temp Pulse Resp B/P (MAP) Pulse Ox O2 Delivery O2 Flow Rate FiO2 12/20/24 12:33 97.7 77 17 124/91 (102) 98 97.7 12/20/24 08:00 Nasal Cannula* 2 28 Total Intake and Output 12/19/24 12/19/24 12/20/24 15:00 23:00 07:00 Intake Total 400 ml 500 ml Output Total 450 ml Balance 400 ml 50 ml medications Current Medications Medications Dose Ordered Sig/Milvia Route Start Time Stop Time Status Last Admin Dose Admin Sodium Chloride 10 ml Q8HR IV 12/17/24 06:00 12/20/24 05:34 10 ML Acetaminophen/ Hydrocodone Bitart 1 tab Q4HP PRN PO 12/16/24 23:45 12/19/24 12:04 1 TAB Ondansetron HCl 4 mg Q4HP PRN IV 12/16/24 23:45 12/17/24 18:05 4 MG Docusate Sodium 100 mg BIDPRN PRN PO 12/16/24 23:45 Acetaminophen 650 mg Q6HP PRN PO 12/16/24 23:45 Nitroglycerin 0.4 mg Q5MINP PRN SL 12/17/24 00:00 Morphine Sulfate 2 mg Q30M PRN IV 12/17/24 00:00 Megestrol Acetate 400 mg Q12HR PO 12/20/24 10:00 12/20/24 10:26 400 MG Albuterol 2.5 mg Q6HPRN PRN NEB 12/20/24 00:15 12/20/24 00:27 2.5 MG Enteral Nutritional Formula 240 ml TIDWM PO 12/20/24 18:00 objective General: NAD, AAOX3 Chest: lung hughes clear to auscultation Heart: RRR, no murmur Abdomen: non-distended, no tenderness to palpation, +BS laboratory and microbiology Laboratory Tests 12/17/24 03:43 Test 12/17/24 03:43 Range/Units Serum Glucose 85 74-106 mg/dL Problems(with codes): (1) Vomiting and diarrhea (2) Dislodged gastrostomy tube (3) Dehydration (4) COPD exacerbation (5) Respiratory failure, acute Prognosis Plan Continue to monitor this patient clinically Patient is getting tracheostomy care Advance diet as tolerated Ensure one can p.o. 3 times a day with his meals Plan discussed with: Patient, Other (Nurse) BERTO LUIS MD Dec 20, 2024 12:50
--- NOTE | 2024-12-20 13:56 | DVHPN2 ---
Subjective The patient seen and examined at bedside. Still refuse G tube reinsert. Patient has tried to eat and take extra supplement. However, he ate about 20 % of his food due to severe abdominal pain. Reviewed: Care Plan, H&P, Labs, Medications, Previous Orders, Radiology Changes from previous H/P or p: No Changes Eyes: No Pain, No Vision change, No Conjunctivae inflammation, No Eyelid inflammation, No Other, No Redness ENT: No Ear pain, No Ear discharge, No Nose pain, No Nose discharge, No Nose congestion, No Mouth pain, No Mouth swelling, No Throat pain, No Throat swelling, No Other Cardiovascular: No Chest Pain, No Palpitations, No Orthopnea, No Paroxysmal Noc. Dyspnea, No Edema, No Lt Headedness, No Other Respiratory: No Cough, No Dry, No Shortness of breath, No SOB with excertion, No Wheezing, No Hemoptysis, No Pleuritic Pain, No Sputum, No Other Gastrointestinal: No Nausea, No Vomiting, No Abdominal Pain, No Diarrhea, No Constipation, No Melena, No Hematochezia; Other (G-tube dislodgement) Genitourinary: No Dysuria, No Frequency, No Incontinence, No Hematuria, No Retention, No Other Musculoskeletal: No other, No neck pain, No shoulder pain, No arm pain, No back pain, No hand pain, No leg pain, No foot pain Skin: No Rash, No Lesions, No Jaundice, No Bruising, No Other Objective Vitals Vital Signs Date Time Temp Pulse Resp B/P (MAP) Pulse Ox O2 Delivery O2 Flow Rate FiO2 12/20/24 12:33 97.7 77 17 124/91 (102) 98 97.7 12/20/24 08:00 Nasal Cannula* 2 28 Intake/Output Intake and Output 12/20/24 07:00 Intake Total 900 ml Output Total 450 ml Balance 450 ml Intake Oral 900 ml Output Urine Total 450 ml # Voids 4 General Appearance: Alert, Cooperative, mild distress HEENT: Atraumatic, PERRLA, EOMI, Mucous membr. moist/pink Neck: Supple Lungs: Clear to auscultation, Normal air movement Cardiovascular: Regular rate, Normal S1, Normal S2, No murmurs, Gallops, Rubs Abdomen: Normal bowel sounds, Soft, No tenderness, Other (G tube scar.) Neuro: Cranial nerves 3-12 NL Psych/Mental Status: Mental status NL Medications Current Medications Medications Dose Ordered Sig/Milvia Route Start Time Stop Time Status Last Admin Dose Admin Sodium Chloride 10 ml Q8HR IV 12/17/24 06:00 12/20/24 05:34 10 ML Acetaminophen/ Hydrocodone Bitart 1 tab Q4HP PRN PO 12/16/24 23:45 12/19/24 12:04 1 TAB Ondansetron HCl 4 mg Q4HP PRN IV 12/16/24 23:45 12/17/24 18:05 4 MG Docusate Sodium 100 mg BIDPRN PRN PO 12/16/24 23:45 Acetaminophen 650 mg Q6HP PRN PO 12/16/24 23:45 Nitroglycerin 0.4 mg Q5MINP PRN SL 12/17/24 00:00 Morphine Sulfate 2 mg Q30M PRN IV 12/17/24 00:00 Megestrol Acetate 400 mg Q12HR PO 12/20/24 10:00 12/20/24 10:26 400 MG Albuterol 2.5 mg Q6HPRN PRN NEB 12/20/24 00:15 12/20/24 00:27 2.5 MG Enteral Nutritional Formula 240 ml TIDWM PO 12/20/24 18:00 Laboratory Results Laboratory Tests 12/17/24 03:43 Labs and/or images reviewed: Labs reviewed by me Assessment/Plan Assessment/Plan Acute renal injury Hypercalcemia Hypokalemia Dehydration Vomiting and diarrhea Dislodged gastrostomy tube Continue current management with IVF. Will replace electrolyte Swallow evaluation. Continue Zofran IV PRN for N/V GI consult for Gtube reinsert since patient cannot eat any solid however, he adamant refuse G tube reinsert. Will try megace 400mg bid, then reassess Will talk to his sister. Continue to encourage the patient to increase diet intake. Will start Protonix IV. This medical document was created using an electronic medical record system with [employer] direct computerized dictation system. Although this document has been carefully reviewed, there may still be some phonetic and typographical errors. These areas are purely typographical due to imperfections of the software programs, and do not reflect any compromise in the patient's medical care. Plan discussed with: Patient My Orders Orders - GISELLA LEYVA MD Procedure Category Date Status Time Pharmacy [facility] 12/19/24 In Process Clarification: 13:59 Megestrol Oral [facility] 12/20/24 In Process Suspension (Megace 10:00 Date of Service: Dec 20, 2024 Billing Provider: GISELLA LEYVA MD Common Visit Codes: [id number] INP/OBS CARE(HIGH) GISELLA LEYVA MD Dec 20, 2024 13:56
[2024-12-20] MEDS ORDERED: PANT40TA57 PO (15:03)
[2024-12-20] MEDS ORDERED: APIX2.5T PO (15:04)
[2024-12-20] MEDS ORDERED: SIME1CAP12 PO (15:05)
[2024-12-20] MEDS ORDERED: QUET50TA PO (15:08)
[2024-12-20] MEDS: Ensure HIGH Protein Chocolate 8oz Bottle PO SCH (19:01)
[2024-12-20] MEDS: HYDROmorphone HCL 2 MG/ML VL/or syr IV PRN (21:05)
[2024-12-20] MEDS: KETOROLAC TROMETH 30 MG/ML 1ML VIAL IV ONE (23:42)
[2024-12-21] VITALS (8 sets, daily range): BP systolic 134–142; BP diastolic 89–111; PULSE 69–107; RESP 16–20; TEMP 97.4–98.3; O2SAT 93–98
[2024-12-21] MEDS: PANTOPRAZOLE 40 MG/10 ML VIAL INJ IV SCH (09:55)
--- NOTE | 2024-12-21 12:09 | DVHPN2 ---
Subjective The patient seen and examined at bedside. Still refuse G tube reinsert. Patient has tried to eat and take extra supplement. However, he ate about 20 % of his food due to severe abdominal pain. He also want to switch the supplement to something less thick. He doesn't like the taste of his ensure. Reviewed: Care Plan, H&P, Labs, Medications, Previous Orders, Radiology Changes from previous H/P or p: No Changes Eyes: No Pain, No Vision change, No Conjunctivae inflammation, No Eyelid inflammation, No Other, No Redness ENT: No Ear pain, No Ear discharge, No Nose pain, No Nose discharge, No Nose congestion, No Mouth pain, No Mouth swelling, No Throat pain, No Throat swelling, No Other Cardiovascular: No Chest Pain, No Palpitations, No Orthopnea, No Paroxysmal Noc. Dyspnea, No Edema, No Lt Headedness, No Other Respiratory: No Cough, No Dry, No Shortness of breath, No SOB with excertion, No Wheezing, No Hemoptysis, No Pleuritic Pain, No Sputum, No Other Gastrointestinal: No Nausea, No Vomiting, No Abdominal Pain, No Diarrhea, No Constipation, No Melena, No Hematochezia; Other (G-tube dislodgement) Genitourinary: No Dysuria, No Frequency, No Incontinence, No Hematuria, No Retention, No Other Musculoskeletal: No other, No neck pain, No shoulder pain, No arm pain, No back pain, No hand pain, No leg pain, No foot pain Skin: No Rash, No Lesions, No Jaundice, No Bruising, No Other Objective Vitals Vital Signs Date Time Temp Pulse Resp B/P (MAP) Pulse Ox O2 Delivery O2 Flow Rate FiO2 12/21/24 08:00 Nasal Cannula* 2 28 12/21/24 08:00 91 12/21/24 07:54 20 98 12/21/24 05:46 134/89 12/21/24 05:00 97.4 97.4 Intake/Output Intake and Output 12/21/24 07:00 Intake Total 836 ml Output Total 250 ml Balance 586 ml Intake Oral 836 ml Output Urine Total 250 ml # Voids 2 General Appearance: Alert, Cooperative, mild distress HEENT: Atraumatic, PERRLA, EOMI, Mucous membr. moist/pink Neck: Supple Lungs: Clear to auscultation, Normal air movement Cardiovascular: Regular rate, Normal S1, Normal S2, No murmurs, Gallops, Rubs Abdomen: Normal bowel sounds, Soft, No tenderness, Other (G tube scar.) Neuro: Cranial nerves 3-12 NL Psych/Mental Status: Mental status NL Medications Current Medications Medications Dose Ordered Sig/Milvia Route Start Time Stop Time Status Last Admin Dose Admin Sodium Chloride 10 ml Q8HR IV 12/17/24 06:00 12/21/24 05:46 10 ML Acetaminophen/ Hydrocodone Bitart 1 tab Q4HP PRN PO 12/16/24 23:45 12/20/24 14:51 1 TAB Ondansetron HCl 4 mg Q4HP PRN IV 12/16/24 23:45 12/17/24 18:05 4 MG Docusate Sodium 100 mg BIDPRN PRN PO 12/16/24 23:45 Acetaminophen 650 mg Q6HP PRN PO 12/16/24 23:45 Nitroglycerin 0.4 mg Q5MINP PRN SL 12/17/24 00:00 Morphine Sulfate 2 mg Q30M PRN IV 12/17/24 00:00 Megestrol Acetate 400 mg Q12HR PO 12/20/24 10:00 12/21/24 09:55 400 MG Albuterol 2.5 mg Q6HPRN PRN NEB 12/20/24 00:15 12/21/24 07:44 2.5 MG Enteral Nutritional Formula 240 ml TIDWM PO 12/20/24 18:00 12/20/24 19:01 240 ML Pantoprazole Sodium 40 mg DAILY IV 12/21/24 10:00 12/21/24 09:55 40 MG Laboratory Results Laboratory Tests 12/17/24 03:43 Assessment/Plan Assessment/Plan Acute renal injury Hypercalcemia Hypokalemia Dehydration Vomiting and diarrhea Dislodged gastrostomy tube Continue current management with IVF. Will replace electrolyte Swallow evaluation. Continue Zofran IV PRN for N/V GI consult for Gtube reinsert since patient cannot eat any solid however, he adamant refuse G tube reinsert. Will try megace 400mg bid, then reassess Will talk to his sister. Continue to encourage the patient to increase diet intake. Will try to change to Breeze or lite supplement to see if he can drink it Will start Protonix IV. This medical document was created using an electronic medical record system with M*[employer] direct computerized dictation system. Although this document has been carefully reviewed, there may still be some phonetic and typographical errors. These areas are purely typographical due to imperfections of the software programs, and do not reflect any compromise in the patient's medical care. Plan discussed with: Patient My Orders Orders - GISELLA LEYVA MD Procedure Category Date Status Time Notify Provider NOTICE 12/20/24 Transmitted Malnutrition 16:21 Nutritional NOURISH 12/20/24 Transmitted Supplements 16:21 Pantoprazole PHA 12/21/24 In Process (Protonix) 10:00 Date of Service: Dec 21, 2024 Billing Provider: GISELLA LEYVA MD Common Visit Codes: [id number] INP/OBS CARE(HIGH) GISELLA LEYVA MD Dec 21, 2024 12:09
[2024-12-21] MEDS: KETOROLAC TROMETH 30 MG/ML 1ML VIAL IV PRN (13:35)
--- NOTE | 2024-12-21 22:05 | DVHPN2 ---
Progress Note - Dictate Date Seen: Dec 21, 2024 Medical Necessity Reason Pt with a Central, PICC or Fol: No Subjective No eating poorly c/o abd pain vital signs Vital Sign Date Time Temp Pulse Resp B/P (MAP) Pulse Ox O2 Delivery O2 Flow Rate FiO2 12/21/24 20:00 Nasal Cannula* 2 28 12/21/24 15:19 75 18 96 12/21/24 13:08 97.8 139/95 (110) 97.8 Total Intake and Output 12/20/24 12/20/24 12/21/24 15:00 23:00 07:00 Intake Total 600 ml 236 ml Output Total 250 ml Balance 350 ml 236 ml medications Current Medications Medications Dose Ordered Sig/Milvia Route Start Time Stop Time Status Last Admin Dose Admin Sodium Chloride 10 ml Q8HR IV 12/17/24 06:00 12/21/24 13:39 10 ML Acetaminophen/ Hydrocodone Bitart 1 tab Q4HP PRN PO 12/16/24 23:45 12/21/24 20:14 1 TAB Ondansetron HCl 4 mg Q4HP PRN IV 12/16/24 23:45 12/17/24 18:05 4 MG Docusate Sodium 100 mg BIDPRN PRN PO 12/16/24 23:45 Acetaminophen 650 mg Q6HP PRN PO 12/16/24 23:45 Nitroglycerin 0.4 mg Q5MINP PRN SL 12/17/24 00:00 Morphine Sulfate 2 mg Q30M PRN IV 12/17/24 00:00 Megestrol Acetate 400 mg Q12HR PO 12/20/24 10:00 12/21/24 09:55 400 MG Albuterol 2.5 mg Q6HPRN PRN NEB 12/20/24 00:15 12/21/24 15:10 2.5 MG Enteral Nutritional Formula 240 ml TIDWM PO 12/20/24 18:00 12/20/24 19:01 240 ML Pantoprazole Sodium 40 mg DAILY IV 12/21/24 10:00 12/21/24 09:55 40 MG Ketorolac Tromethamine 30 mg Q8HP PRN IV 12/21/24 12:30 12/25/24 23:00 12/21/24 13:35 30 MG objective General: NAD, AAOX3 Chest: lung hughes clear to auscultation Heart: RRR, no murmur Abdomen: non-distended, no tenderness to palpation, +BS laboratory and microbiology Laboratory Tests 12/17/24 03:43 Test 12/17/24 03:43 Range/Units Serum Glucose 85 74-106 mg/dL CT SCAN ABD PELVIS IMPRESSION: [id number] diffuse colonic bowel wall thickening; possibly colitis. Moderate diffuse colonic bowel wall thickening. Bilateral nonobstructing renal stones. Mildly distended urinary bladder with debris. Emphysema. Right lower lobe airspace disease or atelectasis. Problems(with codes): (1) Colitis (2) Abnormal finding on GI tract imaging (3) COPD exacerbation (4) Respiratory failure, acute (5) Acute renal injury (6) Dislodged gastrostomy tube (7) Hypercalcemia (8) Dehydration (9) Acute exacerbation of chronic obstructive pulmonary disease (COPD) Dietary Evaluation Review Recommendations by RD: Increase Calorie Intake Comments: Pt meets criteria for Severe Protein-Calorie Malnutrition in the setting of chronic illness based on severe wt loss 17.2 kg/25% in 6 months and PO intake <50% EER x 5days. Nutrition Recommendation 1) Ensure Enlive 240ml TID 2) MVI w/ minerals 1 tab daily 3) Monitor lab values, wt trends, skin trends, I/O Expected Outcomes/Goals: To meet >75% estimated needs To gain/maintain weight Fu 2-3 days Food and Nutrition Intake (Sev: <50% est energy req 5days Interpretation of weight loss: >10% in 6 months Protein Calorie Malnutrition: Severe Is there a minimum of two crit: Yes Plan discussed with: Patient BERTO LUIS MD Dec 21, 2024 22:05
[2024-12-22] VITALS (11 sets, daily range): BP systolic 118–137; BP diastolic 82–97; PULSE 74–99; RESP 15–22; TEMP 97.3–98.3; O2SAT 91–99
[2024-12-22 07:59] LABS: Hematocrit 36.4 % (41.0-53.0); Hemoglobin 11.9 g/dL (13.5-17.5); Mean Corpuscular Hemoglobin 23.5 pg (28.0-32.0); Mean Corpuscular Volume 71.9 fL (80.0-100.0); Nucleated Red Blood Cells % 0.0 %
[2024-12-22 08:17] LABS: Albumin 3.8 g/dL (3.2-4.8); Alkaline Phosphatase 86 U/L (46-116); Anion Gap 12 (5-15); BUN/Creatinine Ratio 12.6 (10.0-20.0); Bilirubin, Total 0.3 mg/dL (0.2-1.0); Blood Urea Nitrogen 16 mg/dL (9-23); Carbon Dioxide 29 mmol/L (20-31); Chloride 101 mmol/L (98-107); Sodium 142 mmol/L (136-145); Total Protein 6.1 g/dL (5.7-8.2)
[2024-12-22 08:21] LABS: Alanine Aminotransferase < 9 U/L (7-40); Glucose 70 mg/dL (74-106); Potassium 3.4 mmol/L (3.5-5.1)
[2024-12-22 08:23] LABS: Calcium 13.3 mg/dL (8.7-10.4)
[2024-12-22] MEDS: SODIUM CHLORIDE 0.9% 1,000 ML IV SCH (13:51)
--- NOTE | 2024-12-22 22:02 | DVHPN2 ---
Progress Note - Dictate Date Seen: Dec 22, 2024 Medical Necessity Reason Pt with a Central, PICC or Fol: No Subjective No new complaints Chronic mild abdominal pain Patient denies any diarrhea or rectal bleeding He has no nausea vomiting Patient is eating and drinking is nutritional supplements Calcium level is still high but trending downwards to 13.3 vital signs Vital Sign Date Time Temp Pulse Resp B/P (MAP) Pulse Ox O2 Delivery O2 Flow Rate FiO2 12/22/24 20:03 87 20 98 12/22/24 20:00 Nasal Cannula* 2 28 12/22/24 17:00 98.3 137/97 (110) 98.3 Total Intake and Output 12/21/24 12/21/24 12/22/24 15:00 23:00 07:00 Intake Total 450 ml 250 ml Output Total 200 ml 150 ml Balance 250 ml 100 ml medications Current Medications Medications Dose Ordered Sig/Milvia Route Start Time Stop Time Status Last Admin Dose Admin Sodium Chloride 10 ml Q8HR IV 12/17/24 06:00 12/22/24 15:20 10 ML Acetaminophen/ Hydrocodone Bitart 1 tab Q4HP PRN PO 12/16/24 23:45 12/21/24 20:14 1 TAB Ondansetron HCl 4 mg Q4HP PRN IV 12/16/24 23:45 12/17/24 18:05 4 MG Docusate Sodium 100 mg BIDPRN PRN PO 12/16/24 23:45 Acetaminophen 650 mg Q6HP PRN PO 12/16/24 23:45 Nitroglycerin 0.4 mg Q5MINP PRN SL 12/17/24 00:00 Morphine Sulfate 2 mg Q30M PRN IV 12/17/24 00:00 Megestrol Acetate 400 mg Q12HR PO 12/20/24 10:00 12/22/24 09:47 400 MG Albuterol 2.5 mg Q6HPRN PRN NEB 12/20/24 00:15 12/22/24 19:57 2.5 MG Enteral Nutritional Formula 240 ml TIDWM PO 12/20/24 18:00 12/22/24 18:58 240 ML Pantoprazole Sodium 40 mg DAILY IV 12/21/24 10:00 12/22/24 09:47 40 MG Ketorolac Tromethamine 30 mg Q8HP PRN IV 12/21/24 12:30 12/25/24 23:00 12/22/24 15:23 30 MG Sodium Chloride 1,000 ml @ 120 mls/hr Q8H20M IV 12/22/24 13:15 12/22/24 13:51 120 MLS/HR objective General: NAD, AAOX3 Chest: lung hughes clear to auscultation Heart: RRR, no murmur Abdomen: non-distended, no tenderness to palpation, +BS laboratory and microbiology Laboratory Tests 12/22/24 07:28 Test 12/22/24 07:28 Range/Units Serum Glucose 70 L 74-106 mg/dL Problems(with codes): (1) Dislodged gastrostomy tube (2) Acute renal injury (3) COPD exacerbation (4) Acute exacerbation of chronic obstructive pulmonary disease (COPD) (5) Abnormal finding on GI tract imaging Prognosis Plan Continue to monitor this patient clinically Patient is getting tracheostomy care Advance diet as tolerated Ensure one can p.o. 3 times a day with his meals Patient does not show any clinical signs of colitis as noted on CT abdomen Check stool for WBC and occult blood Dietary Evaluation Review Recommendations by RD: Increase Calorie Intake Comments: Pt meets criteria for Severe Protein-Calorie Malnutrition in the setting of chronic illness based on severe wt loss 17.2 kg/25% in 6 months and PO intake <50% EER x 5days. Nutrition Recommendation 1) Ensure Enlive 240ml TID 2) MVI w/ minerals 1 tab daily 3) Monitor lab values, wt trends, skin trends, I/O Expected Outcomes/Goals: To meet >75% estimated needs To gain/maintain weight Fu 2-3 days Food and Nutrition Intake (Sev: <50% est energy req 5days Interpretation of weight loss: >10% in 6 months Protein Calorie Malnutrition: Severe Is there a minimum of two crit: Yes Plan discussed with: Patient BERTO LUIS MD Dec 22, 2024 22:02
[2024-12-23] VITALS (13 sets, daily range): BP systolic 136–151; BP diastolic 80–98; PULSE 53–93; RESP 16–20; TEMP 97.8–99.3; O2SAT 92–99
--- NOTE | 2024-12-23 00:19 | DVHPN2 ---
Subjective The patient seen and examined at bedside. Still refuse G tube reinsert. Patient has tried to eat and take extra supplement. The patient said he has better appetite today. Reviewed: Care Plan, H&P, Labs, Medications, Previous Orders, Radiology Changes from previous H/P or p: No Changes Eyes: No Pain, No Vision change, No Conjunctivae inflammation, No Eyelid inflammation, No Other, No Redness ENT: No Ear pain, No Ear discharge, No Nose pain, No Nose discharge, No Nose congestion, No Mouth pain, No Mouth swelling, No Throat pain, No Throat swelling, No Other Cardiovascular: No Chest Pain, No Palpitations, No Orthopnea, No Paroxysmal Noc. Dyspnea, No Edema, No Lt Headedness, No Other Respiratory: No Cough, No Dry, No Shortness of breath, No SOB with excertion, No Wheezing, No Hemoptysis, No Pleuritic Pain, No Sputum, No Other Gastrointestinal: No Nausea, No Vomiting, No Abdominal Pain, No Diarrhea, No Constipation, No Melena, No Hematochezia; Other (G-tube dislodgement) Genitourinary: No Dysuria, No Frequency, No Incontinence, No Hematuria, No Retention, No Other Musculoskeletal: No other, No neck pain, No shoulder pain, No arm pain, No back pain, No hand pain, No leg pain, No foot pain Skin: No Rash, No Lesions, No Jaundice, No Bruising, No Other Objective Vitals Vital Signs Date Time Temp Pulse Resp B/P (MAP) Pulse Ox O2 Delivery O2 Flow Rate FiO2 12/22/24 21:00 98.2 89 15 125/82 (96) 91 98.2 12/22/24 20:00 Nasal Cannula* 2 28 Intake/Output Intake and Output 12/23/24 07:00 Intake Total 1460 ml Balance 1460 ml Intake Oral 460 ml IV Total 1000 ml # Voids 1 General Appearance: Alert, Cooperative, mild distress HEENT: Atraumatic, PERRLA, EOMI, Mucous membr. moist/pink Neck: Supple Lungs: Clear to auscultation, Normal air movement Cardiovascular: Regular rate, Normal S1, Normal S2, No murmurs, Gallops, Rubs Abdomen: Normal bowel sounds, Soft, No tenderness, Other (G tube scar.) Neuro: Cranial nerves 3-12 NL Psych/Mental Status: Mental status NL Medications Current Medications Medications Dose Ordered Sig/Milvia Route Start Time Stop Time Status Last Admin Dose Admin Sodium Chloride 10 ml Q8HR IV 12/17/24 06:00 12/22/24 22:00 10 ML Acetaminophen/ Hydrocodone Bitart 1 tab Q4HP PRN PO 12/16/24 23:45 12/21/24 20:14 1 TAB Ondansetron HCl 4 mg Q4HP PRN IV 12/16/24 23:45 12/17/24 18:05 4 MG Docusate Sodium 100 mg BIDPRN PRN PO 12/16/24 23:45 Acetaminophen 650 mg Q6HP PRN PO 12/16/24 23:45 Nitroglycerin 0.4 mg Q5MINP PRN SL 12/17/24 00:00 Morphine Sulfate 2 mg Q30M PRN IV 12/17/24 00:00 Megestrol Acetate 400 mg Q12HR PO 12/20/24 10:00 12/22/24 23:28 400 MG Albuterol 2.5 mg Q6HPRN PRN NEB 12/20/24 00:15 12/22/24 19:57 2.5 MG Enteral Nutritional Formula 240 ml TIDWM PO 12/20/24 18:00 12/22/24 18:58 240 ML Pantoprazole Sodium 40 mg DAILY IV 12/21/24 10:00 12/22/24 09:47 40 MG Ketorolac Tromethamine 30 mg Q8HP PRN IV 12/21/24 12:30 12/25/24 23:00 12/22/24 23:28 30 MG Sodium Chloride 1,000 ml @ 120 mls/hr Q8H20M IV 12/22/24 13:15 12/22/24 23:32 120 MLS/HR Laboratory Results Laboratory Tests 12/22/24 07:28 Chemistry Test 12/22/24 07:28 Albumin 3.8 g/dL (3.2-4.8) Calcium Level 13.3 mg/dL (8.7-10.4) *H Total Protein 6.1 g/dL (5.7-8.2) LFT Test 12/22/24 07:28 Alanine Aminotransferase (ALT) < 9 U/L (7-40) Alkaline Phosphatase 86 U/L (46-116) Aspartate Amino Transferase (AST) 15 U/L (13-40) Total Bilirubin 0.3 mg/dL (0.2-1.0) Labs and/or images reviewed: Labs reviewed by me Assessment/Plan Assessment/Plan Acute renal injury Hypercalcemia Hypokalemia Dehydration Vomiting and diarrhea Dislodged gastrostomy tube Continue current management with IVF. Will replace electrolyte Swallow evaluation. Continue Zofran IV PRN for N/V GI consult for Gtube reinsert since patient cannot eat any solid however, he adamant refuse G tube reinsert. Will try megace 400mg bid, then reassess Will talk to his sister. Continue to encourage the patient to increase diet intake. Will try to change to Breeze or lite supplement to see if he can drink it Will start Protonix IV. This medical document was created using an electronic medical record system with [employer] direct computerized dictation system. Although this document has been carefully reviewed, there may still be some phonetic and typographical errors. These areas are purely typographical due to imperfections of the software programs, and do not reflect any compromise in the patient's medical care. Plan discussed with: Patient My Orders Orders - GISELLA LEYVA MD Procedure Category Date Status Time Sodium Chloride 0.9% PHA 12/22/24 In Process 13:15 Date of Service: Dec 22, 2024 Billing Provider: GISELLA LEYVA MD Common Visit Codes: [id number] INP/OBS CARE(HIGH) GISELLA LEYVA MD Dec 23, 2024 00:19
[2024-12-23 13:46] LABS: Hematocrit 33.1 % (41.0-53.0); Hemoglobin 10.7 g/dL (13.5-17.5); Mean Corpuscular Hemoglobin 23.2 pg (28.0-32.0); Mean Corpuscular Volume 71.4 fL (80.0-100.0); Nucleated Red Blood Cells % 0.0 %
[2024-12-23 14:01] LABS: Albumin 3.4 g/dL (3.2-4.8); Alkaline Phosphatase 72 U/L (46-116); Anion Gap 9 (5-15); BUN/Creatinine Ratio 14.4 (10.0-20.0); Bilirubin, Total 0.3 mg/dL (0.2-1.0); Blood Urea Nitrogen 13 mg/dL (9-23); Carbon Dioxide 29 mmol/L (20-31); Chloride 107 mmol/L (98-107); Glucose 78 mg/dL (74-106); Sodium 145 mmol/L (136-145)
[2024-12-23 14:03] LABS: Alanine Aminotransferase < 9 U/L (7-40); Calcium 11.4 mg/dL (8.7-10.4); Potassium 3.3 mmol/L (3.5-5.1); Total Protein 5.4 g/dL (5.7-8.2)
--- NOTE | 2024-12-23 16:01 | DVHPN2 ---
Subjective The patient seen and examined at bedside. Still refuse G tube reinsert. Patient has tried to eat and take extra supplement. The patient said he has better appetite today. Reviewed: Care Plan, H&P, Labs, Medications, Previous Orders, Radiology Changes from previous H/P or p: No Changes Eyes: No Pain, No Vision change, No Conjunctivae inflammation, No Eyelid inflammation, No Other, No Redness ENT: No Ear pain, No Ear discharge, No Nose pain, No Nose discharge, No Nose congestion, No Mouth pain, No Mouth swelling, No Throat pain, No Throat swelling, No Other Cardiovascular: No Chest Pain, No Palpitations, No Orthopnea, No Paroxysmal Noc. Dyspnea, No Edema, No Lt Headedness, No Other Respiratory: No Cough, No Dry, No Shortness of breath, No SOB with excertion, No Wheezing, No Hemoptysis, No Pleuritic Pain, No Sputum, No Other Gastrointestinal: No Nausea, No Vomiting, No Abdominal Pain, No Diarrhea, No Constipation, No Melena, No Hematochezia; Other (G-tube dislodgement) Genitourinary: No Dysuria, No Frequency, No Incontinence, No Hematuria, No Retention, No Other Musculoskeletal: No other, No neck pain, No shoulder pain, No arm pain, No back pain, No hand pain, No leg pain, No foot pain Skin: No Rash, No Lesions, No Jaundice, No Bruising, No Other Objective Vitals Vital Signs Date Time Temp Pulse Resp B/P (MAP) Pulse Ox O2 Delivery O2 Flow Rate FiO2 12/23/24 13:00 97.8 80 18 140/98 (112) 95 97.8 12/23/24 07:34 Nasal Cannula* 2 28 Intake/Output Intake and Output 12/23/24 07:00 Intake Total 1860 ml Output Total 600 ml Balance 1260 ml Intake Oral 860 ml IV Total 1000 ml Output Urine Total 600 ml # Voids 1 General Appearance: Alert, Cooperative, mild distress HEENT: Atraumatic, PERRLA, EOMI, Mucous membr. moist/pink Neck: Supple Lungs: Clear to auscultation, Normal air movement Cardiovascular: Regular rate, Normal S1, Normal S2, No murmurs, Gallops, Rubs Abdomen: Normal bowel sounds, Soft, No tenderness, Other (G tube scar.) Neuro: Cranial nerves 3-12 NL Psych/Mental Status: Mental status NL Medications Current Medications Medications Dose Ordered Sig/Milvia Route Start Time Stop Time Status Last Admin Dose Admin Sodium Chloride 10 ml Q8HR IV 12/17/24 06:00 12/23/24 14:20 10 ML Acetaminophen/ Hydrocodone Bitart 1 tab Q4HP PRN PO 12/16/24 23:45 12/21/24 20:14 1 TAB Ondansetron HCl 4 mg Q4HP PRN IV 12/16/24 23:45 12/17/24 18:05 4 MG Docusate Sodium 100 mg BIDPRN PRN PO 12/16/24 23:45 Acetaminophen 650 mg Q6HP PRN PO 12/16/24 23:45 Nitroglycerin 0.4 mg Q5MINP PRN SL 12/17/24 00:00 Morphine Sulfate 2 mg Q30M PRN IV 12/17/24 00:00 Megestrol Acetate 400 mg Q12HR PO 12/20/24 10:00 12/23/24 09:37 400 MG Albuterol 2.5 mg Q6HPRN PRN NEB 12/20/24 00:15 12/22/24 19:57 2.5 MG Enteral Nutritional Formula 240 ml TIDWM PO 12/20/24 18:00 12/23/24 14:20 240 ML Pantoprazole Sodium 40 mg DAILY IV 12/21/24 10:00 12/22/24 09:47 40 MG Ketorolac Tromethamine 30 mg Q8HP PRN IV 12/21/24 12:30 12/25/24 23:00 12/23/24 09:47 30 MG Sodium Chloride 1,000 ml @ 120 mls/hr Q8H20M IV 12/22/24 13:15 12/23/24 14:20 120 MLS/HR Laboratory Results Laboratory Tests 12/23/24 13:26 Chemistry Test 12/23/24 13:26 Albumin 3.4 g/dL (3.2-4.8) Calcium Level 11.4 mg/dL (8.7-10.4) H Total Protein 5.4 g/dL (5.7-8.2) L LFT Test 12/23/24 13:26 Alanine Aminotransferase (ALT) < 9 U/L (7-40) Alkaline Phosphatase 72 U/L (46-116) Aspartate Amino Transferase (AST) 12 U/L (13-40) L Total Bilirubin 0.3 mg/dL (0.2-1.0) Labs and/or images reviewed: Labs reviewed by me Assessment/Plan Assessment/Plan Acute renal injury Hypercalcemia Hypokalemia Dehydration Vomiting and diarrhea Dislodged gastrostomy tube Continue current management with IVF. Will replace electrolyte Swallow evaluation. Continue Zofran IV PRN for N/V GI consult for Gtube reinsert since patient cannot eat any solid however, he adamant refuse G tube reinsert. Continue megace 400mg bid, then reassess Continue to encourage the patient to increase diet intake. Will try to change to Breeze or lite supplement to see if he can drink it Will start Protonix IV. This medical document was created using an electronic medical record system with [employer] direct computerized dictation system. Although this document has been carefully reviewed, there may still be some phonetic and typographical errors. These areas are purely typographical due to imperfections of the software programs, and do not reflect any compromise in the patient's medical care. Plan discussed with: Patient Date of Service: Dec 23, 2024 Billing Provider: GISELLA LEYVA MD Common Visit Codes: [id number] INP/OBS CARE(HIGH) GISELLA LEYVA MD Dec 23, 2024 16:00
[2024-12-23] MEDS: POTASSIUM CHL 20 Meq TABLET PO ONE (20:56)
[2024-12-23] MEDS: ACETAMINOPHEN 325 MG TAB PO PRN (23:08)
[2024-12-23] MEDS: MELATONIN 5 MG TAB PO ONE (23:46)
[2024-12-24] VITALS (11 sets, daily range): BP systolic 132–141; BP diastolic 73–98; PULSE 63–99; RESP 16–19; TEMP 96.8–98.2; O2SAT 92–100
--- NOTE | 2024-12-24 12:38 | DVHPN2 ---
Subjective The patient seen and examined at bedside. Still refuse G tube reinsert. Patient has tried to eat and take extra supplement. The patient said he has better appetite today. Reviewed: Care Plan, H&P, Labs, Medications, Previous Orders, Radiology Changes from previous H/P or p: No Changes Eyes: No Pain, No Vision change, No Conjunctivae inflammation, No Eyelid inflammation, No Other, No Redness ENT: No Ear pain, No Ear discharge, No Nose pain, No Nose discharge, No Nose congestion, No Mouth pain, No Mouth swelling, No Throat pain, No Throat swelling, No Other Cardiovascular: No Chest Pain, No Palpitations, No Orthopnea, No Paroxysmal Noc. Dyspnea, No Edema, No Lt Headedness, No Other Respiratory: No Cough, No Dry, No Shortness of breath, No SOB with excertion, No Wheezing, No Hemoptysis, No Pleuritic Pain, No Sputum, No Other Gastrointestinal: No Nausea, No Vomiting, No Abdominal Pain, No Diarrhea, No Constipation, No Melena, No Hematochezia; Other (G-tube dislodgement) Genitourinary: No Dysuria, No Frequency, No Incontinence, No Hematuria, No Retention, No Other Musculoskeletal: No other, No neck pain, No shoulder pain, No arm pain, No back pain, No hand pain, No leg pain, No foot pain Skin: No Rash, No Lesions, No Jaundice, No Bruising, No Other Objective Vitals Vital Signs Date Time Temp Pulse Resp B/P (MAP) Pulse Ox O2 Delivery O2 Flow Rate FiO2 12/24/24 09:22 96.8 75 19 138/84 (102) 99 96.8 12/24/24 08:00 Nasal Cannula* 2 28 Intake/Output Intake and Output 12/24/24 07:00 Intake Total 850 ml Output Total 1100 ml Balance -250 ml Intake Oral 850 ml Output Urine Total 1100 ml General Appearance: Alert, Cooperative, mild distress HEENT: Atraumatic, PERRLA, EOMI, Mucous membr. moist/pink Neck: Supple Lungs: Clear to auscultation, Normal air movement Cardiovascular: Regular rate, Normal S1, Normal S2, No murmurs, Gallops, Rubs Abdomen: Normal bowel sounds, Soft, No tenderness, Other (G tube scar.) Neuro: Cranial nerves 3-12 NL Psych/Mental Status: Mental status NL Medications Current Medications Medications Dose Ordered Sig/Milvia Route Start Time Stop Time Status Last Admin Dose Admin Sodium Chloride 10 ml Q8HR IV 12/17/24 06:00 12/24/24 05:59 10 ML Acetaminophen/ Hydrocodone Bitart 1 tab Q4HP PRN PO 12/16/24 23:45 12/23/24 20:57 1 TAB Ondansetron HCl 4 mg Q4HP PRN IV 12/16/24 23:45 12/17/24 18:05 4 MG Docusate Sodium 100 mg BIDPRN PRN PO 12/16/24 23:45 Acetaminophen 650 mg Q6HP PRN PO 12/16/24 23:45 12/23/24 23:08 650 MG Nitroglycerin 0.4 mg Q5MINP PRN SL 12/17/24 00:00 Morphine Sulfate 2 mg Q30M PRN IV 12/17/24 00:00 Megestrol Acetate 400 mg Q12HR PO 12/20/24 10:00 12/23/24 09:37 400 MG Albuterol 2.5 mg Q6HPRN PRN NEB 12/20/24 00:15 12/24/24 06:50 2.5 MG Enteral Nutritional Formula 240 ml TIDWM PO 12/20/24 18:00 12/23/24 18:28 240 ML Pantoprazole Sodium 40 mg DAILY IV 12/21/24 10:00 12/22/24 09:47 40 MG Ketorolac Tromethamine 30 mg Q8HP PRN IV 12/21/24 12:30 12/25/24 23:00 12/24/24 03:08 30 MG Sodium Chloride 1,000 ml @ 120 mls/hr Q8H20M IV 12/22/24 13:15 12/23/24 22:56 120 MLS/HR Laboratory Results Laboratory Tests 12/23/24 13:26 Chemistry Test 12/23/24 13:26 Albumin 3.4 g/dL (3.2-4.8) Calcium Level 11.4 mg/dL (8.7-10.4) H Total Protein 5.4 g/dL (5.7-8.2) L LFT Test 12/23/24 13:26 Alanine Aminotransferase (ALT) < 9 U/L (7-40) Alkaline Phosphatase 72 U/L (46-116) Aspartate Amino Transferase (AST) 12 U/L (13-40) L Total Bilirubin 0.3 mg/dL (0.2-1.0) Labs and/or images reviewed: Labs reviewed by me Assessment/Plan Assessment/Plan Acute renal injury Hypercalcemia Hypokalemia Dehydration Vomiting and diarrhea Dislodged gastrostomy tube Continue current management with IVF. Will replace electrolyte Swallow evaluation. Continue Zofran IV PRN for N/V GI consult for Gtube reinsert since patient cannot eat any solid however, he adamant refuse G tube reinsert. Continue megace 400mg bid, then reassess Continue to encourage the patient to increase diet intake. Will try to change to Breeze or lite supplement to see if he can drink it Will start Protonix IV. This medical document was created using an electronic medical record system with [employer] direct computerized dictation system. Although this document has been carefully reviewed, there may still be some phonetic and typographical errors. These areas are purely typographical due to imperfections of the software programs, and do not reflect any compromise in the patient's medical care. Plan discussed with: Patient Date of Service: Dec 24, 2024 Billing Provider: GISELLA LEYVA MD Common Visit Codes: [id number] INP/OBS CARE(HIGH) GISELLA LEYVA MD Dec 24, 2024 12:38
[2024-12-24 13:28] LABS: Hematocrit 33.3 % (41.0-53.0); Hemoglobin 11.2 g/dL (13.5-17.5); Mean Corpuscular Hemoglobin 23.6 pg (28.0-32.0); Mean Corpuscular Volume 70.5 fL (80.0-100.0); Nucleated Red Blood Cells % 0.1 %
[2024-12-24 13:52] LABS: Albumin 3.5 g/dL (3.2-4.8); Alkaline Phosphatase 71 U/L (46-116); Anion Gap 10 (5-15); BUN/Creatinine Ratio 15.4 (10.0-20.0); Blood Urea Nitrogen 12 mg/dL (9-23); Carbon Dioxide 27 mmol/L (20-31); Glucose 88 mg/dL (74-106); Sodium 145 mmol/L (136-145)
[2024-12-24 13:53] LABS: Bilirubin, Total 0.4 mg/dL (0.2-1.0)
[2024-12-24 13:55] LABS: Alanine Aminotransferase < 9 U/L (7-40); Calcium 10.8 mg/dL (8.7-10.4); Chloride 108 mmol/L (98-107); Potassium 3.4 mmol/L (3.5-5.1); Total Protein 5.6 g/dL (5.7-8.2)
[2024-12-25] VITALS (7 sets, daily range): BP systolic 129; BP diastolic 75; PULSE 73–80; RESP 16–17; TEMP 97.7; O2SAT 93–100
[2024-12-25] MEDS ORDERED: MEGE1SUS5 PO (12:19)
[2024-12-25] MEDS ORDERED: LORA-1121 PO (12:19)
[2024-12-25] MEDS ORDERED: QUET50TA PO (12:20)
--- NOTE | 2024-12-25 12:22 | DVHDS2 ---
Discharge Summary Date of Admission Dec 16, 2024 at 23:50 Date of Discharge: Dec 25, 2024 Admitting Diagnosis Acute renal injury Hypercalcemia Hypokalemia Dehydration Vomiting and diarrhea Dislodged gastrostomy tube Labs/Diagnostic Data: Laboratory Results Test 12/24/24 20:36 12/24/24 12:50 12/16/24 20:56 Stool Occult Blood Negative (Negative) Stool Occult Blood Sample #3 (Negative) Stool for White Cells None seen White Blood Count 8.3 10^3/uL (4.4-10.8) Red Blood Count 4.73 10^6/uL (4.5-5.90) Hemoglobin 11.2 g/dL (13.5-17.5) Hematocrit 33.3 % (41.0-53.0) Mean Corpuscular Volume 70.5 fL (80.0-100.0) Mean Corpuscular Hemoglobin 23.6 pg (28.0-32.0) Mean Corpuscular Hemoglobin Concent 33.5 g/dL (32.0-36.0) Red Cell Distribution Width 19.2 % (11.8-14.3) Platelet Count 377 10^3/uL (140-450) Mean Platelet Volume 8.4 fL (6.9-10.8) Neutrophils (%) (Auto) 54.5 % (37.0-80.0) Lymphocytes (%) (Auto) 32.1 % (10.0-50.0) Monocytes (%) (Auto) 6.6 % (0.0-12.0) Eosinophils (%) (Auto) 4.8 % (0.0-7.0) Basophils (%) (Auto) 2.0 % (0.0-2.0) Neutrophils # (Auto) 4.5 10 ^3/uL (1.6-8.6) Lymphocytes # (Auto) 2.7 10 ^3/uL (0.4-5.4) Monocytes # (Auto) 0.5 10 ^3/uL (0-1.3) Eosinophils # (Auto) 0.4 10 ^3/uL (0-0.8) Basophils # (Auto) 0.2 10 ^3/uL (0-0.2) Nucleated Red Blood Cells 0.1 % Sodium Level 145 mmol/L (136-145) Potassium Level 3.4 mmol/L (3.5-5.1) Chloride Level 108 mmol/L (98-107) Carbon Dioxide Level 27 mmol/L (20-31) Anion Gap 10 (5-15) Blood Urea Nitrogen 12 mg/dL (9-23) Creatinine 0.78 mg/dL (0.700-1.30) Glomerular Filtration Rate Calc 102 mL/min (>90) BUN/Creatinine Ratio 15.4 (10.0-20.0) Serum Glucose 88 mg/dL (74-106) Calcium Level 10.8 mg/dL (8.7-10.4) Total Bilirubin 0.4 mg/dL (0.2-1.0) Aspartate Amino Transferase (AST) 11 U/L (13-40) Alanine Aminotransferase (ALT) < 9 U/L (7-40) Alkaline Phosphatase 71 U/L (46-116) Total Protein 5.6 g/dL (5.7-8.2) Albumin 3.5 g/dL (3.2-4.8) Prothrombin Time 11.4 sec (9.3-11.8) Prothrombin Time INR 1.08 (0.9-1.15) Activated Partial Thromboplast Time 26.8 SEC (24.5-34.5) Magnesium Level 1.4 mg/dL (1.6-2.6) Vitamin D 25-Hydroxy 56.3 ng/mL (30.0-100) Parathyroid Hormone (Intact) 15.8 pg/mL (18.4-80.1) Other Laboratory Tests 12/24/24 12:50 Brief Hx & Hospital Course: This is a 59 years old male with past medical history of atrial fibrillation, asthma, COPD, hypertension, chronic respiratory failure status post tracheostomy came to emergency department because of the dislodged G-tube . Per patient he was coughing and then the G-tube came out. The patient refused to have G-tube replacement. The patient has also had intractable nausea, vomiting, and diarrhea. The patient can not keep any food down at home. On top of it he had no appetite and really eat or drink anything at home per sister. Abdomen pelvis showed: [id number] diffuse colonic bowel wall thickening; possibly colitis.Moderate diffuse colonic bowel wall thickening.Bilateral nonobstructing renal stones.Mildly distended urinary bladder with debris.Emphysema. Right lower lobe airspace disease or atelectasis. The patient was admitted. The patient was put on IV fluid. The patient did not eat for couple day because of intractable nausea, vomiting, dehydration. The patient was rehydrate. Was reintroduced back to food with clear liquid and advanced to regular soft diet. GI was consulted for G-tube replacement but patient adamant refused. Occult blood of stool and also culture was sent and come back negative The patient still had no appetite and subsequently he was started on Megace 400 mg twice per day. Upon taking Megace for couple day patient finally had appetite back and able to eat at least 50% of his food. . Then he started refusing all the other medication including Megace. The patient said he tired to live in the hospital and he want to go home. The patient will be discharged home today. Follow up with primary care physician 1-2 weeks. Activity as tolerated. Diet per home diet. Drain will be cared by his operator engineer when he follow up with the doctor. Physical exam: HEENT: Normocephalic atraumatic pupils equal react to light and accommodation. Extraocular muscles intact, conjunctiva pink, oropharynx moist, no thrush, no exudate. Lymphatic: No lymphadenopathy Neck: Tracheostomy tube intact Cardiovascular exam: S1, S2 was heard. No murmurs, rubs, gallops Lung: Clear on auscultation bilaterally, no wheeze, rale, rhonchi. GI: Abdominal soft, nondistended, nontenderness, positive bowel sounds. Extremity: No crepitus, cyanosis, edema. Pedal pulses present bilateral. Full range of motion. Skin: Normal turgor, no rash. Psych: Alert, oriented x3. Neurology: No focal deficits, cranial nerve II to XII grossly intact. This medical document was created using an electronic medical record system with [employer] direct computerized dictation system. Although this document has been carefully reviewed, there may still be some phonetic and typographical errors. These areas are purely typographical due to imperfections of the software programs, and do not reflect any compromise in the patient's medical care. Condition at Discharge: Stable Final Diagnosis/Problems List weakness Adult failure to thrive Acute renal injury Hypercalcemia Hypokalemia, replace Dehydration resolved Vomiting and diarrhea resolved Dislodged gastrostomy tube, the patient refused to get it reinserted Discharge Disposition: Home Discharge Instruct/Medications Diet: Regular Diet comment: soft diet Activity: No Restrictions, As Tolerated Follow Up/Referral: pcp 1-2 weeks Medications: see med list Scheduled Apixaban Base (Eliquis), 2.5 MG PO BID, (Reported) Azithromycin (Zithromax Z-Loc), 250 MG PO BID Budesonide-Formoterol Fumarate (Budesonide/Formoterol Fum 160-4.5 Mcg/Act), 2 PUFF INH BID, (Reported) Famotidine (Pepcid Tablet), 1 TAB PO DAILY Hctz (Hydrochlorothiazide), 1 TAB PO DAILY, (Reported) Levofloxacin Hemihydrate (Levaquin 500 Mg), 1 TAB PO DAILY Megestrol Acetate (Appetite) (Megestrol Acetate), 625 MG PO DAILY Pantoprazole Sodium Sesquihydr (Pantoprazole Sodium Dr), 40 MG PO DAILY, (Reported) Prednisone (Prednisone), 20 MG PO DAILY Quetiapine Fumerate (Seroquel), 50 MG PO BID Temazepam (Restoril), 1 CAP PO QHSP, (Reported) Scheduled PRN Acetaminophen (Acetaminophen), 650 MG PO Q6HP PRN Albuterol Sulfate (Albuterol Sulfate Hfa), 108 MCG INH Q4HP PRN for SHORTNESS OF BREATH, (Reported) Albuterol Sulfate (Albuterol Sulfate), 1 PUFF NEB Q4H PRN for SHORTNESS OF BREATH, (Reported) Lorazepam (Ativan Tablet), 1 TAB PO TID PRN Simethicone (Simethicone), 80 MG PO QIDACHS PRN for FOR STOMACH DISTRESS, (Reported) Discharge Statement: "Patient was advised to return to the ER or call 911 if any headaches, dizziness, shortness of breath, chest pain, abdominal pain, bleeding, fevers, or worsening of medical condition. Patient was counseled about treatment plan, medications, possible side effects, patientverbalized understanding. All questions were answered to the best of my ability. This discharge took greater then 30 minutes in planning, reviewing documentation, counseling the patient, and discussing with other team members." ASSESSMENT ASSESSMENT Assessment weakness, failure to thrive Date of Service: Dec 25, 2024 Billing Provider: GISELLA LEYVA MD Common Visit Codes: 70262-RFH/OBS DISCH DAY >30min GISELLA LEYVA MD Dec 25, 2024 12:22
[2024-12-25 13:53] LABS: Hematocrit 35.6 % (41.0-53.0); Hemoglobin 12.0 g/dL (13.5-17.5); Mean Corpuscular Hemoglobin 24.6 pg (28.0-32.0); Mean Corpuscular Volume 73.0 fL (80.0-100.0); Nucleated Red Blood Cells % 0.2 %
[2024-12-25 14:06] LABS: Albumin 3.9 g/dL (3.2-4.8); Alkaline Phosphatase 72 U/L (46-116); Anion Gap 12 (5-15); BUN/Creatinine Ratio 15.9 (10.0-20.0); Bilirubin, Total 0.3 mg/dL (0.2-1.0); Blood Urea Nitrogen 13 mg/dL (9-23); Carbon Dioxide 25 mmol/L (20-31); Chloride 107 mmol/L (98-107); Glucose 96 mg/dL (74-106); Potassium 3.8 mmol/L (3.5-5.1); Sodium 144 mmol/L (136-145); Total Protein 6.1 g/dL (5.7-8.2)
[2024-12-25 14:07] LABS: Alanine Aminotransferase < 9 U/L (7-40); Calcium 11.0 mg/dL (8.7-10.4)
== END 2024-12-25 15:20 | disposition home or self-care (01) | DRG 640 ==
LOC: ER 20:29 → EDBD 20:29 → OVERFLOW 23:50 → TELE-WESTW 12-17 04:12
PROVIDERS: ADMIT Internal Medicine; ATTEND Internal Medicine
DX: E87.6 Hypokalemia (principal); E43 Unspecified severe protein-calorie malnutrition; N17.9 Acute kidney failure, unspecified; Z43.1 Encounter for attention to gastrostomy; Z68.1 Body mass index [BMI] 19.9 or less, adult; E86.0 Dehydration; E83.52 Hypercalcemia; R62.7 Adult failure to thrive; F17.210 Nicotine dependence, cigarettes, uncomplicated; I10 Essential (primary) hypertension; I48.91 Unspecified atrial fibrillation; J44.89 Other specified chronic obstructive pulmonary disease; Z90.49 Acquired absence of other specified parts of digestive tract; Z80.9 Family history of malignant neoplasm, unspecified; Z79.899 Other long term (current) drug therapy; N18.9 Chronic kidney disease, unspecified
CPT/HCPCS: 36415; 71045; 74176; 80053; 82270; 82306; 83735; 83970; 85025; 85048; 85610; 85730; 94640; 99291; G0378; J1885; J2405; J2470; J3480